=== PATIENT | female | born 1935 | race Two or more races ===

== ENCOUNTER 2017-06-08 20:00 | Emergency (ER) | payer MEDICARE, OTHER, MEDICAID ==
[2017-06-08 20:33] VITALS: BP 155/55
--- NOTE | 2017-06-08 20:49 | EDM.PDOC ---
ED HPI GENERAL MEDICAL PROBLEM - General Chief Complaint: Skin Complaint Stated Complaint: ITCHY RASH ON STOMACH AND BACK Time Seen by Provider: 06/08/17 20:49 Source of Information: Reports: Patient, Family (daughter) History Limitations: Reports: No Limitations - History of Present Illness INITIAL COMMENTS - FREE TEXT/NARRATIVE: 81-year-old female attends the ED due to severe pruritus. Patient states that she had cataract surgery 2 weeks ago May 22. She started scratching and becoming itchy on her way home that day after having had surgery. In about 3 days time she broke out in a papular rash mostly on her skin folds lower abdomen and then subsequent spread to torso and neck and back. She was seen and felt to have a drug eruption and it was unclear what may have set this off. Her eyedrops were curtailed case they were contributing to the problem. She was on a Medrol Dosepak and her symptoms improved dramatically within a day or return to days after finishing the Medrol Dosepak. Benadryl doesn't seem to work and is not a good idea for her as she has the beginnings of organic brain disease as well. She was seen by provider today and started on Claritin will dictate which will take about 2-3 days to start work is an antihistamine for itching. She was also given topical betamethasone ointment which she states has not helped. The rash has become much worse over the last 24 hours. At present she can stand the itching unable to sleep. Onset: Other Onset Date: 05/22/17 Duration: Week(s): Location: Reports: Neck, Chest, Abdomen, Back Quality: Reports: Other (very pruritic papules.) Severity: Severe Improves with: Reports: None Worsens with: Reports: Other (if she gets warm at all the itching is much worse) Context: Reports: Other (felt to be a drug eruption his symptoms started after having cataract surgery.started on numerous medications at that time). Denies: Activity, Exercise, Lifting, Sick Contact, Trauma Associated Symptoms: Reports: Other (disrupted sleep pattern because of the pruritus.). 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 (see below) - Related Data Allergies Allergy/AdvReac Type Severity Reaction Status Date / Time No Known Allergies Allergy Verified 06/08/17 20:33 Home Meds: Home Meds Levothyroxine [Synthroid] 50 mcg PO DAILY 12/22/15 [History] Losartan/Hydrochlorothiazide [Losartan-HCTZ 100-25 MG] 1 tab PO DAILY 12/22/15 [ History] Omeprazole [Prilosec] 20 mg PO DAILY 12/22/15 [History] Betamethasone/Propylene Glyc [Betamethasone DP Aug 0.05%] 1 dose TP ASDIRECTED PRN 06/08/17 [History] Eye Medication For Cataracts 1 drop EYEBOTH BID 06/08/17 [History] Prednisone [IMW: predniSONE] 20 mg PO BID #11 tab 06/08/17 [Rx] Past Medical History HEENT History: Reports: Cataract, Impaired Vision Cardiovascular History: Reports: High Cholesterol, Hypertension Other Cardiovascular History: angioplasty Gastrointestinal History: Reports: GERD Psychiatric History: Reports: Anxiety Endocrine/Metabolic History: Reports: Hypothyroidism - Past Surgical History HEENT Surgical History: Reports: Cataract Surgery GI Surgical History: Reports: Cholecystectomy Female Surgical History: Reports: Hysterectomy Musculoskeletal Surgical History: Reports: Knee Replacement Social & Family History - Family History Family Medical History: Noncontributory - Tobacco Use Smoking Status *Q: Never Smoker Second Hand Smoke Exposure: No - Caffeine Use Caffeine Use: Reports: None - Recreational Drug Use Recreational Drug Use: No ED ROS GENERAL - Review of Systems Review Of Systems: See Below Constitutional: Reports: Malaise, Fatigue (from not getting adequate sleep). Denies: Fever, Chills HEENT: Reports: No Symptoms, Other (wearing glasses at present due to recent cataract surgery) Respiratory: Reports: No Symptoms Cardiovascular: Reports: No Symptoms Endocrine: Reports: No Symptoms GI/Abdominal: Reports: Constipation (some constipation issues since having had surgery) : Reports: Frequency ( is not using any pain medication.), Incontinence (both urge and stress components.) Musculoskeletal: Reports: Neck Pain (intermittently), Shoulder Pain ( intermittentlyintermittently), Back Pain Skin: Reports: Pruritis (severe), Lesions (map maculopapular rash particularly across the upper chest and neck and back. They improve after she scratches the lesions i.e. they're not as itchy.) Neurological: Reports: Confusion (mild transient confusions. Beginning of organic brain disease appreciated by daughter who is with her.) Psychiatric: Reports: No Symptoms Hematologic/Lymphatic: Reports: No Symptoms ED EXAM, SKIN/RASH Exam: See Below Exam Limited By: No Limitations General Appearance: Alert, WD/WN, Moderate Distress Eye Exam: Bilateral Eye: Other Head: Atraumatic Neck: Normal Inspection, Supple, Non-Tender, Full Range of Motion. No: Lymphadenopathy (L), Lymphadenopathy (R) Respiratory/Chest: No Respiratory Distress, Lungs Clear, Normal Breath Sounds, No Accessory Muscle Use Cardiovascular: Normal Peripheral Pulses, Regular Rate, Rhythm, No Edema, No Murmur Skin: Other (patient has a maculopapular rash anterior chest and neck and upper back. It spreads across the upper abdomen as well. They are erythematous and 1- 2 mm in size. They gave me the impression that they are actually small vesicles that she has scratched open. There is no active bleeding or infection. They almost have the appearance of lesions seen in dermatitis herpetiformis.) Characteristics: Maculopapular Associated features: No: Tenderness, Swelling, Induration, Scaling, Lymphangitis , Inflammation, Crusting, Weeping, Rough Course - Vital Signs Last Recorded V/S: Last Vital Signs Temp 36.2 C 06/08/17 20:28 Pulse 63 06/08/17 20:28 Resp 18 06/08/17 20:28 BP 155/55 H 06/08/17 20:28 Pulse Ox 96 06/08/17 20:28 - Radiology Interpretation Free Text/Narrative:: 81-year-old female presents to the ED for evaluation of severe pruritus and rash. She developed itching on the way home after having cataract surgery 2 weeks ago. She suffered a broken out in a maculopapular rash which initially was in across the lower abdomen and groin area and then subsequent has spread on the abdomen chest thorax posteriorly and neck. She improved remarkably on a 5 day dose of Solu-Medrol or dose pack. Within 2 days of stopping the steroid her symptoms returned and the rash is spreading. She was seen in clinic and prescribed betamethasone ointment as well as Claritin for itch as Benadryl was not helping plus making her more confused. She states that neither of these medications of helped her itching and she is unable to sleep. On examination she does have a maculopapular rash to me it looks like there is almost multiple vesicles that have been scratched. She reports that when she scratches them they tend to be less itchy. I don't have much else to offer her other than a return to steroids. She'll therefore be placed on prednisone 20 mg morning and supper for 5 days to bring the rash under control.she will be given 20 mg while in the ED tonight. Follow-up with her personal care physician next week. Departure - Departure Time of Disposition: 21:14 Disposition: Home, Self-Care 01 Condition: Fair Clinical Impression: Acneiform drug eruption - Discharge Information Prescriptions: Prednisone [IMW: predniSONE] 20 mg PO BID #11 tab Instructions: Drug Rash Referrals: Trudy Fernandez NP [Primary Care Provider] - Forms: ED Department Discharge Additional Instructions: evaluation in the emergency room tonight in regards to recurrence of itchy rash that started nearly 2 weeks ago. Started after having left cataract surgery. Appears to be a drug eruption type of rash. It has the appearance of acne. I suspect there are small blisters that are [place] scratched off the itch improves. Initially improved with a 5 day course of steroid called the Medrol Dosepak. Current medications betamethasone valerate ointment is not helping with the itch or the rash. Suggest return to steroid use prednisone 20 mg now and then breakfast and supper for the next 5 days to clear the rash. Most drug eruptions will last 7 date days. Again try and find out if she received any intravenous antibiotic prior to the cataract surgery. This might be the culprit in terms of allergic reaction. Rarely it could be an eyedrop as well although this is less likely as there is not much systemic absorption from the eyedrops. May continue to use the betamethasone to the rash area. Claritin takes about 3 days to start to work and therefore is of limited value. Due to impaired memory and early organic brain disease I would not suggest use of Benadryl at this time as it would likely cause more confusion. Follow-up with personal physician if rash not improved or returns after 5 days of prednisone use.
== END 2017-06-08 21:31 | disposition home or self-care (01) ==
LOC: EDBD → JD.ED 20:00
DX: L27.0 Generalized skin eruption due to drugs and medicaments taken internally (principal); T49.5X5A Adverse effect of ophthalmological drugs and preparations, initial encounter; I10 Essential (primary) hypertension; Z79.899 Other long term (current) drug therapy; Z98.49 Cataract extraction status, unspecified eye
CPT/HCPCS: 99283

== ENCOUNTER 2017-06-19 17:59 | Emergency (ER) | payer MEDICARE, MEDICAID ==
--- NOTE | 2017-06-19 18:24 | EDM.PDOC ---
ED HPI GENERAL MEDICAL PROBLEM - General Chief Complaint: Abdominal Pain Stated Complaint: STOMACH PAIN Time Seen by Provider: 06/19/17 18:24 Source of Information: Reports: Patient History Limitations: Reports: No Limitations - History of Present Illness INITIAL COMMENTS - FREE TEXT/NARRATIVE: Patient is a 81-year-old female presents ED complaining of generalized abdominal discomfort. Patient has been worked up quite extensively by a GI specialist in [place] with unclear etiology to the current complaint. They believe it is related to acid reflux and thus the patient has been taking Prilosec, Carafate, and also Bentyl. States over the past 2 days the discomfort has not been relieved with these therapies. Thus she is here to be evaluated in the ED. Pain is generalized described as a sharp, crampy sensation, that waxes and wanes in intensity. She's had a poor appetite for the past 2 days. Has been sleeping more today than usual. Patient denies any worsening depression, lack of motivation, and lack of enjoyment of items she has previously enjoyed. Last bowel movement was earlier today at 11:00 described as soft, formed, with no blood present. There's been no pain with urination. No recent fever, chest pain , SOB, back pain, or nausea or vomiting. Patient did complain to her daughter that she felt constipated 2 days ago. Daughter states patient does suffer from depression and is on a medication for this. They recently increased her medication dosage. States after returning back from [place] this past April symptoms have persisted. She had no pain to her abdomen while visiting family in [place] for one month. Daughter questions if patient does not have worsening depression with being back in [place]. Patient states she lives [place] and likes living with her daughter. Depression medication name unknown by family and patient. Past history: Hypercholesteremia, hypertension, coronary disease, acid reflux, anxiety, hypothyroidism Current medications include Synthroid, losartan/HCTZ, Prilosec, prednisone, Carafate, and Bentyl. Surgical history: EGD, colonoscopy, cholecystectomy, and hysterectomy. Abdomen Pain Score (Numeric/FACES): 10 - Related Data Allergies Allergy/AdvReac Type Severity Reaction Status Date / Time No Known Allergies Allergy Verified 06/08/17 20:33 Home Meds: Home Meds Levothyroxine [Synthroid] 50 mcg PO DAILY 12/22/15 [History] Losartan/Hydrochlorothiazide [Losartan-HCTZ 100-25 MG] 1 tab PO DAILY 12/22/15 [ History] Omeprazole [Prilosec] 20 mg PO DAILY 12/22/15 [History] Betamethasone/Propylene Glyc [Betamethasone DP Aug 0.05%] 1 dose TP ASDIRECTED PRN 06/08/17 [History] Eye Medication For Cataracts 1 drop EYEBOTH BID 06/08/17 [History] Prednisone [IMW: predniSONE] 20 mg PO BID #11 tab 06/08/17 [Rx] Past Medical History HEENT History: Reports: Cataract, Impaired Vision Cardiovascular History: Reports: High Cholesterol, Hypertension Other Cardiovascular History: angioplasty Gastrointestinal History: Reports: GERD Psychiatric History: Reports: Anxiety Endocrine/Metabolic History: Reports: Hypothyroidism - Past Surgical History HEENT Surgical History: Reports: Cataract Surgery GI Surgical History: Reports: Cholecystectomy Female Surgical History: Reports: Hysterectomy Musculoskeletal Surgical History: Reports: Knee Replacement Social & Family History - Family History Family Medical History: Noncontributory - Tobacco Use Smoking Status *Q: Never Smoker Second Hand Smoke Exposure: No - Caffeine Use Caffeine Use: Reports: Coffee, Soda - Recreational Drug Use Recreational Drug Use: No ED ROS GENERAL - Review of Systems Review Of Systems: See Below (Per patient and daughter) Constitutional: Reports: Malaise, Fatigue, Decreased Appetite. Denies: Fever, Chills HEENT: Reports: No Symptoms Respiratory: Denies: Shortness of Breath, Cough, Sputum, Hemoptysis Cardiovascular: Denies: Chest Pain, Dyspnea on Exertion, Palpitations, PND, Syncope GI/Abdominal: Reports: Abdominal Pain, Constipation, Diarrhea, Decreased Appetite, Nausea. Denies: Black Stool, Bloody Stool, Difficulty Swallowing, Distension, Flatus, Hematemesis, Hematochezia, Melena, Vomiting : Reports: No Symptoms Musculoskeletal: Denies: Back Pain Neurological: Reports: No Symptoms Psychiatric: Reports: Depression ED EXAM, GI/ABD - Physical Exam Exam: See Below Exam Limited By: No Limitations General Appearance: Alert, WD/WN, No Apparent Distress Ears: Hearing Grossly Normal Nose: Normal Inspection Throat/Mouth: Normal Voice, No Airway Compromise, Other (Oral mucosa is moist) Neck: Normal Inspection, Supple Respiratory/Chest: No Respiratory Distress, Lungs Clear, Normal Breath Sounds, No Accessory Muscle Use, Chest Non-Tender Cardiovascular: Normal Peripheral Pulses, Regular Rate, Rhythm GI/Abdominal Exam: Normal Bowel Sounds, Soft, Non-Tender, No Organomegaly, No Distention (Female) Exam: Deferred Rectal (Female) Exam: Deferred Back Exam: Normal Inspection. No: CVA Tenderness (L), CVA Tenderness (R) Extremities: Non-Tender, No Pedal Edema, Normal Capillary Refill Neurological: Alert, Oriented, CN II-XII Intact, Normal Cognition, No Motor/ Sensory Deficits Psychiatric: Normal Affect, Normal Mood Skin Exam: Warm, Dry, Intact, Normal Color Course - Vital Signs Last Recorded V/S: Last Vital Signs Temp 97.8 F 06/19/17 18:24 Pulse 58 L 06/19/17 18:24 Resp 20 06/19/17 18:24 BP 172/58 H 06/19/17 18:24 Pulse Ox 97 06/19/17 18:24 - Orders/Labs/Meds Orders: Active Orders 24 hr Category Date Time Status Peripheral IV Care [RC] . DIRECTED Care 06/19/17 18:40 Active Abdomen 2V AP Flat Upright [CR] Stat Exams 06/19/17 18:40 Taken Peripheral IV Insertion Adult [OM.PC] Stat Oth 06/19/17 18:40 Ordered Labs: Laboratory Tests 06/19/17 06/19/17 06/19/17 Range/Units 18:15 18:15 18:15 WBC 12.98 H (3.98-10.04) K/mm3 RBC 5.13 (3.98-5.22) M/mm3 Hgb 15.4 (11.2-15.7) gm/L Hct 45.0 H (34.1-44.9) % MCV 87.7 (79.4-94.8) fl MCH 30.0 (25.6-32.2) pg MCHC 34.2 (32.2-35.5) g/dl RDW Std Deviation 53.0 H (36.4-46.3) fL Plt Count 152 L (182-369) K/mm3 MPV 10.6 (9.4-12.3) fl Neut % (Auto) 66.7 (34.0-71.1) % Lymph % (Auto) 23.8 (19.3-51.7) % [place] % (Auto) 7.7 (4.7-12.5) % Eos % (Auto) 0.8 (0.7-5.8) Baso % (Auto) 0.2 (0.1-1.2) % Neut # (Auto) 8.67 H (1.56-6.13) K/mm3 Lymph # (Auto) 3.09 (1.18-3.74) K/mm3 [place] # (Auto) 1.00 H (0.24-0.36) K/mm3 Eos # (Auto) 0.10 (0.04-0.36) K/mm3 Baso # (Auto) 0.02 (0.01-0.08) K/mm3 Sodium 139 (136-145) mEq/L Potassium 3.4 L (3.5-5.1) mEq/L Chloride 105 (98-107) mEq/L Carbon Dioxide 22 (21-32) mEq/L Anion Gap 15.4 H (5-15) BUN 18 (7-18) mg/dL Creatinine 1.5 H (0.55-1.02) mg/dL Est Cr Clr Drug Dosing TNP Estimated GFR (MDRD) 33 (>60) mL/min BUN/Creatinine Ratio 12.0 L (14-18) Glucose 109 (83-115) mg/dL Calcium 8.3 L (8.5-10.1) mg/dL Total Bilirubin 0.3 (0.2-1.0) mg/dL AST 20 (15-37) U/L ALT 16 (14-59) U/L Alkaline Phosphatase 60 (46-116) U/L C-Reactive Protein 2.1 H* (<1.0) mg/dL Total Protein 6.4 (6.4-8.2) g/dl Albumin 3.1 L (3.4-5.0) g/dl Globulin 3.3 gm/dL Albumin/Globulin Ratio 0.9 L (1-2) Lipase 240 (73-393) U/L TSH 3rd Generation 4.313 H (0.358-3.74) uIU/mL Urine Color (Yellow) Urine Appearance (Clear) Urine pH (5.0-8.0) Ur Specific [place] (1.005-1.030) Urine Protein (Negative) Urine Glucose (UA) (Negative) Urine Ketones (Negative) Urine Occult Blood (Negative) Urine Nitrite (Negative) Urine Bilirubin (Negative) Urine Urobilinogen (0.2-1.0) Ur Leukocyte Esterase (Negative) Urine RBC (0-5) /hpf Urine WBC (0-5) /hpf Ur Epithelial Cells (0-5) /hpf Urine Bacteria (FEW) /hpf Urine Mucus (FEW) /hpf 06/19/17 Range/Units 18:45 WBC (3.98-10.04) K/mm3 RBC (3.98-5.22) M/mm3 Hgb (11.2-15.7) gm/L Hct (34.1-44.9) % MCV (79.4-94.8) fl MCH (25.6-32.2) pg MCHC (32.2-35.5) g/dl RDW Std Deviation (36.4-46.3) fL Plt Count (182-369) K/mm3 MPV (9.4-12.3) fl Neut % (Auto) (34.0-71.1) % Lymph % (Auto) (19.3-51.7) % [place] % (Auto) (4.7-12.5) % Eos % (Auto) (0.7-5.8) Baso % (Auto) (0.1-1.2) % Neut # (Auto) (1.56-6.13) K/mm3 Lymph # (Auto) (1.18-3.74) K/mm3 [place] # (Auto) (0.24-0.36) K/mm3 Eos # (Auto) (0.04-0.36) K/mm3 Baso # (Auto) (0.01-0.08) K/mm3 Sodium (136-145) mEq/L Potassium (3.5-5.1) mEq/L Chloride (98-107) mEq/L Carbon Dioxide (21-32) mEq/L Anion Gap (5-15) BUN (7-18) mg/dL Creatinine (0.55-1.02) mg/dL Est Cr Clr Drug Dosing Estimated GFR (MDRD) (>60) mL/min BUN/Creatinine Ratio (14-18) Glucose (83-115) mg/dL Calcium (8.5-10.1) mg/dL Total Bilirubin (0.2-1.0) mg/dL AST (15-37) U/L ALT (14-59) U/L Alkaline Phosphatase (46-116) U/L C-Reactive Protein (<1.0) mg/dL Total Protein (6.4-8.2) g/dl Albumin (3.4-5.0) g/dl Globulin gm/dL Albumin/Globulin Ratio (1-2) Lipase (73-393) U/L TSH 3rd Generation (0.358-3.74) uIU/mL Urine Color Yellow (Yellow) Urine Appearance Clear (Clear) Urine pH 7.0 (5.0-8.0) Ur Specific [place] 1.020 (1.005-1.030) Urine Protein Negative (Negative) Urine Glucose (UA) Negative (Negative) Urine Ketones Negative (Negative) Urine Occult Blood Negative (Negative) Urine Nitrite Negative (Negative) Urine Bilirubin Negative (Negative) Urine Urobilinogen 0.2 (0.2-1.0) Ur Leukocyte Esterase Negative (Negative) Urine RBC 0-5 (0-5) /hpf Urine WBC 0-5 (0-5) /hpf Ur Epithelial Cells 0-5 (0-5) /hpf Urine Bacteria Few (FEW) /hpf Urine Mucus Few (FEW) /hpf Meds: Medications Discontinued Medications Generic Name Dose Route Start Last Admin Trade Name Randyq PRN Reason Stop Dose Admin Sodium Chloride 1,000 mls @ 125 mls/hr 06/19/17 18:45 06/19/17 19:00 Normal Saline IV 125 mls/hr ASDIRECTED CHUY Administration Sodium Chloride 10 ml 06/19/17 18:40 06/19/17 18:15 Saline Flush FLUSH 10 ml ASDIRECTED PRN Administration Keep Vein Open - Re-Assessments/Exams Free Text/Narrative Re-Assessment/Exam: IV established with normal saline. Initial labs and studies include CBC, tsh, chem 14, CRP, lipase, UA, and 2 view of the abdomen flat and upright. Labs reviewed: White blood cell count 12.98, hemoglobin 15.4, platelet count 152 , neutrophil percentage is 66.7, neutrophil number is 8.67, sodium 139, potassium 3.4, cr 1.5, glucose 109, CRP 2.1, lipase 240, TSH third-generation 4.313. UA negative for infection. X-ray of the abdomen reveals scattered gas with increased stool pattern. No signs of obstruction. Shared results of labs and studies with the patient. She has no discomfort at this time. She is wishing be discharged home. Discharge instructions as documented. Departure - Departure Time of Disposition: 20:25 Disposition: Home, Self-Care 01 Condition: Good Clinical Impression: Chronic generalized abdominal pain - Discharge Information Instructions: Constipation, Adult, [id number], Abdominal Pain, Adult, Easy-to -Read Referrals: Trudy Fernandez, SAMPLE WORKER [Primary Care Provider] - Forms: ED Department Discharge Additional Instructions: Continue taking all your home medications as prescribed. Suggest starting MiraLAX one capful every day with copious amounts of water or juice to regulate bowel movements. Follow-up with your PCP this coming week for reevaluation. Keep appointment with GI specialist for further evaluation and treatment as well. Return to the ED for any new or worsening symptoms. - My Orders Last 24 Hours: My Active Orders 06/19/17 18:40 Peripheral IV Care [RC] . DIRECTED Abdomen 2V AP Flat Upright [CR] Stat Peripheral IV Insertion Adult [OM.PC] Stat - Assessment/Plan Last 24 Hours: My Active Orders 06/19/17 18:40 Peripheral IV Care [RC] . DIRECTED Abdomen 2V AP Flat Upright [CR] Stat Peripheral IV Insertion Adult [OM.PC] Stat
[2017-06-19 18:28] VITALS: BP 172/58
[2017-06-19] MEDS ORDERED: Sodium Chloride 0.9% 10 ML Syringe FLUSH PRN (18:40)
[2017-06-19] MEDS ORDERED: Sodium Chloride 0.9% 1,000 ML IV SCH (18:45)
--- NOTE | 2017-06-20 07:02 | CR ---
Abdomen: Supine and upright views of the abdomen were obtained. Comparison: Previous abdominal x-ray of 03/30/16. Extensive vascular calcification is seen within a tortuous aorta. Previous cholecystectomy is noted. Bowel gas pattern appears within normal limits. No free air is seen. Impression: 1. Incidental findings. Diagnostic code #2
== END 2017-06-19 20:30 | disposition home or self-care (01) ==
LOC: JD.ED 17:59 → EDBD 17:59 → JD.ED 20:30
DX: R10.84 Generalized abdominal pain (principal); G89.29 Other chronic pain; E78.00 Pure hypercholesterolemia, unspecified; I10 Essential (primary) hypertension; K21.9 Gastro-esophageal reflux disease without esophagitis; F41.9 Anxiety disorder, unspecified; E03.9 Hypothyroidism, unspecified; Z79.899 Other long term (current) drug therapy; Z90.49 Acquired absence of other specified parts of digestive tract; Z90.710 Acquired absence of both cervix and uterus
CPT/HCPCS: 36415; 74020; 80053; 81001; 83690; 84443; 85025; 86140; 96360; 99284; J7040; J7050; 99283

== ENCOUNTER 2017-11-19 14:52 | Observation (INO) | payer MEDICARE, MEDICAID ==
[2017-11-19] MEDS ORDERED: Sodium Chloride 0.9% 10 ML Syringe FLUSH PRN (15:21)
[2017-11-19] MEDS ORDERED: HYDROmorphone 0.5 MG/0.5 ML SYRINGE IVPUSH ONE (16:14)
--- NOTE | 2017-11-19 17:16 | EDM.PDOC ---
ED HPI GENERAL MEDICAL PROBLEM - General Chief Complaint: Cardiovascular Problem Stated Complaint: [facility] Time Seen by Provider: 11/19/17 15:15 Source of Information: Reports: Patient, Family, RN Notes Reviewed - History of Present Illness INITIAL COMMENTS - FREE TEXT/NARRATIVE: 82 year old female has been brought in by ambulance after syncopal event at home a short time ago witnessed by family. She has dementia, fell 3 times last evening but no report of syncope, just balance issues or weakness. She has been having abd pain for many days, she did vomit at the time of her syncope today. Unclear if there has been diarrhea, family not aware of that. No chest pain or difficulty breathing. Hx of hypothyroidism, No know hx diabetes , CAD. Abdomen Pain Score (Numeric/FACES): 7 - Related Data Allergies Allergy/AdvReac Type Severity Reaction Status Date / Time No Known Allergies Allergy Verified 11/19/17 15:06 Home Meds: Home Meds Citalopram [Citalopram HBr] 10 mg PO DAILY 11/19/17 [History] Dicyclomine [Bentyl] 10 mg PO QIDACANDBED 11/19/17 [History] Donepezil HCl [Aricept] 10 mg PO DAILY 11/19/17 [History] Levothyroxine Sodium [Synthroid] 75 mcg PO DAILY 11/19/17 [History] Losartan/Hydrochlorothiazide [Losartan-HCTZ 100-25 MG] 1 tab PO DAILY 11/19/17 [ History] Megestrol [Megace] 20 mg PO QID 11/19/17 [History] Omeprazole 20 mg PO BIDAC 11/19/17 [History] Oxybutynin 5 mg PO DAILY 11/19/17 [History] Sucralfate [Carafate] 1 gm PO DAILY PRN 11/19/17 [History] Past Medical History Cardiovascular History: Reports: Hypertension Gastrointestinal History: Reports: GERD 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: Psychiatric History: Reports: Dementia Endocrine/Metabolic History: Reports: Hypothyroidism - Past Surgical History GI Surgical History: Reports: Cholecystectomy, Colonoscopy Female Surgical History: Reports: Hysterectomy Musculoskeletal Surgical History: Reports: Knee Replacement Social & Family History - Tobacco Use Smoking Status *Q: Never Smoker Second Hand Smoke Exposure: No - Caffeine Use Caffeine Use: Reports: Coffee - Recreational Drug Use Recreational Drug Use: No ED ROS GENERAL - Review of Systems Review Of Systems: See Below Constitutional: Denies: Fever, Chills, Diaphoresis HEENT: Denies: Sinus Problem, Throat Pain Respiratory: Denies: Shortness of Breath, Wheezing, Pleuritic Chest Pain Cardiovascular: Denies: Chest Pain GI/Abdominal: Reports: Abdominal Pain, Diarrhea (possible), Nausea, Vomiting Musculoskeletal: Denies: Neck Pain, Shoulder Pain, Back Pain Skin: Denies: Rash Neurological: Reports: Dizziness, Difficulty Walking, Weakness (generalized). Denies: Numbness, Tingling ED EXAM, GENERAL - Physical Exam Exam: See Below General Appearance: Alert, No Apparent Distress Eye Exam: Bilateral Eye: PERRL Nose: Normal Inspection Throat/Mouth: Normal Inspection, Normal Oropharynx Head: Atraumatic. No: Facial Swelling Neck: Supple, Other (no JVD) Respiratory/Chest: No Respiratory Distress, Lungs Clear, Normal Breath Sounds Cardiovascular: Regular Rate, Rhythm GI/Abdominal: Soft, Tender (mild tenderness upper mid abd) Extremities: Normal Inspection, Normal Range of Motion. No: Pedal Edema, Leg Pain, Increased Warmth, Redness Neurological: Alert, No Motor/Sensory Deficits, Confused, Other (obeys simple commands, no focal weakness) Skin Exam: Warm, Dry, Normal Color EKG INTERPRETATION EKG Date: 11/19/17 Rhythm: NSR [place]: Normal P-Wave: Present QRS: Normal ST-T: Normal Course - Vital Signs Last Recorded V/S: Last Vital Signs Temp 98 F 11/19/17 15:04 Pulse 61 11/19/17 15:04 Resp 20 11/19/17 15:04 BP 194/47 H 11/19/17 15:04 Pulse Ox 95 11/19/17 15:04 - Orders/Labs/Meds Orders: Active Orders 24 hr Category Date Time Status Admission Status [Patient Status] [ADT] Routine ADT 11/19/17 19:26 Active EKG 12 Lead [EKG Documentation Completion] [RC] STAT Care 11/19/17 15:22 Active Peripheral IV Care [RC] . DIRECTED Care 11/19/17 15:22 Active Chest 1V Frontal [CR] Stat Exams 11/19/17 17:09 Taken Sodium Chloride 0.9% [Saline Flush] Med 11/19/17 15:21 Active 10 ml FLUSH ASDIRECTED PRN Peripheral IV Insertion Adult [OM.PC] Stat Oth 11/19/17 15:22 Ordered Medication Orders Sodium Chloride (Saline Flush) 10 ml FLUSH ASDIRECTED PRN PRN Reason: Keep Vein Open Last Admin: 11/19/17 15:57 Dose: 10 ml Labs: Laboratory Tests 11/19/17 11/19/17 11/19/17 Range/Units 15:16 15:16 15:55 WBC 12.75 H (3.98-10.04) K/mm3 RBC 4.32 (3.98-5.22) M/mm3 Hgb 13.3 (11.2-15.7) gm/L Hct 39.8 (34.1-44.9) % MCV 92.1 (79.4-94.8) fl MCH 30.8 (25.6-32.2) pg MCHC 33.4 (32.2-35.5) g/dl RDW Std Deviation 45.9 (36.4-46.3) fL Plt Count 249 (182-369) K/mm3 MPV 9.9 (9.4-12.3) fl Neut % (Auto) 62.7 (34.0-71.1) % Lymph % (Auto) 28.1 (19.3-51.7) % [place] % (Auto) 7.4 (4.7-12.5) % Eos % (Auto) 0.6 L (0.7-5.8) Baso % (Auto) 0.4 (0.1-1.2) % Neut # (Auto) 8.00 H (1.56-6.13) K/mm3 Lymph # (Auto) 3.58 (1.18-3.74) K/mm3 [place] # (Auto) 0.94 H (0.24-0.36) K/mm3 Eos # (Auto) 0.08 (0.04-0.36) K/mm3 Baso # (Auto) 0.05 (0.01-0.08) K/mm3 Sodium 139 (136-145) mEq/L Potassium 3.3 L (3.5-5.1) mEq/L Chloride 106 (98-107) mEq/L Carbon Dioxide 23 (21-32) mEq/L Anion Gap 13.3 (5-15) BUN 19 H (7-18) mg/dL Creatinine 1.2 H (0.55-1.02) mg/dL Est Cr Clr Drug Dosing 34.54 mL/min Estimated GFR (MDRD) 43 (>60) mL/min BUN/Creatinine Ratio 15.8 (14-18) Glucose 183 H (83-115) mg/dL Calcium 8.2 L (8.5-10.1) mg/dL Total Bilirubin 0.4 (0.2-1.0) mg/dL AST 23 (15-37) U/L ALT 11 L (14-59) U/L Alkaline Phosphatase 57 (46-116) U/L Troponin I < 0.017 (0.00-0.056) ng/mL Total Protein 6.1 L (6.4-8.2) g/dl Albumin 3.0 L (3.4-5.0) g/dl Globulin 3.1 gm/dL Albumin/Globulin Ratio 1.0 (1-2) Urine Color Yellow (Yellow) Urine Appearance Clear (Clear) Urine pH 7.0 (5.0-8.0) Ur Specific [place] 1.020 (1.005-1.030) Urine Protein Trace H (Negative) Urine Glucose (UA) Negative (Negative) Urine Ketones Negative (Negative) Urine Occult Blood Negative (Negative) Urine Nitrite Negative (Negative) Urine Bilirubin Negative (Negative) Urine Urobilinogen 0.2 (0.2-1.0) Ur Leukocyte Esterase Negative (Negative) Urine RBC 0-5 (0-5) /hpf Urine WBC 0-5 (0-5) /hpf Ur Epithelial Cells 0-5 (0-5) /hpf Urine Bacteria Not seen (FEW) /hpf Urine Mucus Not seen (FEW) /hpf Meds: Medications Generic Name Dose Route Start Last Admin Trade Name Freq PRN Reason Stop Dose Admin Sodium Chloride 10 ml 11/19/17 15:21 11/19/17 15:57 Saline Flush FLUSH 10 ml ASDIRECTED PRN Administration Keep Vein Open Discontinued Medications Generic Name Dose Route Start Last Admin Trade Name Freq PRN Reason Stop Dose Admin Hydromorphone HCl 0.5 mg 11/19/17 16:14 11/19/17 16:21 Dilaudid IVPUSH 11/19/17 16:15 0.5 mg ONETIME ONE Administration - Re-Assessments/Exams Free Text/Narrative Re-Assessment/Exam: 11/19/17 18:08 WBC mildly elevated, cath urine clear, CXR normal, chemistries relatively OK. No further vomting but continued abd pain. 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 Will admit for IV fluid, continued monitering of abd pain, nausea, vomiting as well as cardiac monitering for syncope or near syncope. Departure - Departure Time of Disposition: 18:00 Disposition: Refer to Observation Condition: Fair Clinical Impression: Syncope Qualifiers: Syncope type: unspecified Qualified Code(s): R55 - Syncope and collapse Vomiting Qualifiers: Vomiting type: unspecified Vomiting Intractability: non-intractable Nausea presence: with nausea Qualified Code(s): R11.2 - Nausea with vomiting, unspecified Abdominal pain Qualifiers: Abdominal location: upper abdomen, unspecified Qualified Code(s): R10.10 - Upper abdominal pain, unspecified ED Communication - Discussed Case With (1) Discussed Case With (1): Admitting Provider (Dr Holman, decision to admit at about 17:20) - My Orders Last 24 Hours: My Active Orders 11/19/17 15:21 Sodium Chloride 0.9% [Saline Flush] 10 ml FLUSH ASDIRECTED PRN 11/19/17 15:22 EKG 12 Lead [EKG Documentation Completion] [RC] STAT Peripheral IV Care [RC] . DIRECTED Peripheral IV Insertion Adult [OM.PC] Stat 11/19/17 17:09 Chest 1V Frontal [CR] Stat 11/19/17 19:26 Admission Status [Patient Status] [ADT] Routine - Assessment/Plan Last 24 Hours: My Active Orders 11/19/17 15:21 Sodium Chloride 0.9% [Saline Flush] 10 ml FLUSH ASDIRECTED PRN 11/19/17 15:22 EKG 12 Lead [EKG Documentation Completion] [RC] STAT Peripheral IV Care [RC] . DIRECTED Peripheral IV Insertion Adult [OM.PC] Stat 11/19/17 17:09 Chest 1V Frontal [CR] Stat 11/19/17 19:26 Admission Status [Patient Status] [ADT] Routine
[2017-11-19] MEDS ORDERED: SUCRALFATE 1 GM/10 ML PO PRN (20:58)
--- NOTE | 2017-11-19 21:39 | PCM.HP ---
H&P History of Present Illness - General Date of Service: 11/19/17 Source of Information: Family, Provider History Limitations: Reports: No Limitations - History of Present Illness Initial Comments - Free Text/Narative: 82 year old female first language is Ghanaian reports to the ED with her daughter and grandchildren. She resides in her daughter's home. And apparently was in her bedroom and may have fallen, it is not known whether she passed out. The door to her bedroom was closed. Her daughter stated that she has been more confused since returning from [place] where she had been living before [place]. The most recent physical condition treated had been H Pylori. She has recently been diagnosed with dementia and has an appointment with a neurologist in [place]. Her most recent meds for dementia were started by her PCP, the focus of the neurology visit was assessment and treatment of her dementia to slow then progression. Reportedly there have been three falls recently without LOC. She will be admitted as obs with telemetry. Onset of Symptoms: Reports: Gradual Symptom Onset Date: 11/16/17 Duration of Symptoms: Reports: Hour(s):, Getting Worse Severity: Moderate Improves with: Reports: Medication Worsens with: Reports: None Associated Symptoms: Reports: Confusion, Loss of Appetite, Malaise, Nausea/ Vomiting, Weakness Abdomen Pain Score (Numeric/FACES): 7 - Related Data Allergies/Adverse Reactions: Allergies Allergy/AdvReac Type Severity Reaction Status Date / Time No Known Allergies Allergy Verified 11/19/17 15:06 Home Medications: Home Meds Citalopram [Citalopram HBr] 10 mg PO DAILY 11/19/17 [History] Dicyclomine [Bentyl] 10 mg PO QIDACANDBED 11/19/17 [History] Donepezil HCl [Aricept] 10 mg PO DAILY 11/19/17 [History] Levothyroxine Sodium [Synthroid] 75 mcg PO DAILY 11/19/17 [History] Losartan/Hydrochlorothiazide [Losartan-HCTZ 100-25 MG] 1 tab PO DAILY 11/19/17 [ History] Megestrol [Megace] 20 mg PO QID 11/19/17 [History] Omeprazole 20 mg PO BIDAC 11/19/17 [History] Oxybutynin 5 mg PO DAILY 11/19/17 [History] Sucralfate [Carafate] 1 gm PO DAILY PRN 11/19/17 [History] Past Medical History HEENT History: Reports: Impaired Vision Other HEENT History: wears glasses, not here Cardiovascular History: Reports: Hypertension Gastrointestinal History: Reports: GERD 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: Psychiatric History: Reports: Dementia Endocrine/Metabolic History: Reports: Hypothyroidism - Past Surgical History HEENT Surgical History: Reports: Cataract Surgery Cardiovascular Surgical History: Reports: None GI Surgical History: Reports: Cholecystectomy, Colonoscopy Female Surgical History: Reports: Hysterectomy Endocrine Surgical History: Reports: None Musculoskeletal Surgical History: Reports: Knee Replacement Social & Family History - Family History Family Medical History: Noncontributory - Tobacco Use Smoking Status *Q: Never Smoker Second Hand Smoke Exposure: No - Caffeine Use Caffeine Use: Reports: Coffee Other Caffeine Use: two cups in morning - Recreational Drug Use Recreational Drug Use: No H&P Review of Systems - Review of Systems: Review Of Systems: See Below General: Reports: Weakness HEENT: Reports: No Symptoms Pulmonary: Reports: No Symptoms Cardiovascular: Reports: No Symptoms Gastrointestinal: Reports: Abdominal Pain, Diarrhea Genitourinary: Reports: No Symptoms Musculoskeletal: Reports: No Symptoms Skin: Reports: No Symptoms Psychiatric: Reports: Confusion Neurological: Reports: No Symptoms Hematologic/Lymphatic: Reports: No Symptoms Immunologic: Reports: No Symptoms Exam - Exam Exam: See Below - Vital Signs Vital Signs: Last Vital Signs Temp 36.4 C 11/19/17 20:31 Pulse 61 11/19/17 20:31 Resp 16 11/19/17 20:31 BP 162/48 H 11/19/17 20:31 Pulse Ox 97 11/19/17 20:31 Weight: 63.503 kg - Exam General: Alert, Oriented HEENT: Conjunctiva Clear, Nares Patent, Normal Nasal Septum, Pupils Equal, Pupils Reactive Neck: Supple, Trachea Midline Lungs: Normal Respiratory Effort Cardiovascular: Regular Rate, Regular Rhythm GI/Abdominal Exam: Normal Bowel Sounds, Soft, Non-Tender, No Organomegaly, No Distention (Female) Exam: Deferred Rectal (Female) Exam: Deferred Back Exam: Normal Inspection Extremities: Normal Inspection, Non-Tender, Normal Capillary Refill Skin: Warm Neurological: Cranial Nerves Intact Neuro Extensive - Mental Status: Alert, Normal Mood/Affect, Other (limited with language barrier) Neuro Extensive - Motor, Sensory, Reflexes: CN II-XII Intact Psychiatric: Alert - Patient Data Result Diagrams: 11/19/17 15:16 11/19/17 15:16 *Q Meaningful Use (ADM) - VTE *Q VTE Criteria *Q: - Stroke *Q Stroke Criteria *Q: - AMI *Q AMI Criteria *Q: - Problem List (1) Abdominal pain SNOMED Code(s): 89708770 ICD Code: R10.9 - UNSPECIFIED ABDOMINAL PAIN Status: Acute Current Visit : Yes Qualifiers: Abdominal location: upper abdomen, unspecified Qualified Code(s): R10.10 - Upper abdominal pain, unspecified (2) Syncope SNOMED Code(s): 818247502 ICD Code: R55 - SYNCOPE AND COLLAPSE Status: Acute Current Visit: Yes Qualifiers: Syncope type: unspecified Qualified Code(s): R55 - Syncope and collapse Problem List Initiated/Reviewed/Updated: Yes Orders Last 24hrs: Active Orders 24 hr Category Date Time Status Carotid Comp [US] Routine Exams 11/20/17 11:00 Ordered Echo Comp wo Cont [US] Routine Exams 11/20/17 11:00 Ordered BMP [BASIC METABOLIC PANEL,BMP] [CHEM] DAILY Lab 11/20/17 05:00 Ordered BMP [BASIC METABOLIC PANEL,BMP] [CHEM] DAILY Lab 11/21/17 05:00 Ordered BMP [BASIC METABOLIC PANEL,BMP] [CHEM] DAILY Lab 11/22/17 05:00 Ordered CBC WITH AUTO DIFF [HEME] DAILY Lab 11/20/17 05:00 Ordered CBC WITH AUTO DIFF [HEME] DAILY Lab 11/21/17 05:00 Ordered CBC WITH AUTO DIFF [HEME] DAILY Lab 11/22/17 05:00 Ordered CRP [C-REACTIVE PROTEIN] [CHEM] DAILY Lab 11/20/17 05:00 Ordered CRP [C-REACTIVE PROTEIN] [CHEM] DAILY Lab 11/21/17 05:00 Ordered CRP [C-REACTIVE PROTEIN] [CHEM] DAILY Lab 11/22/17 05:00 Ordered FOLIC ACID [CHEM] Routine Lab 11/20/17 05:00 Ordered INFLUENZA A+B AG SCREEN [RM] Routine Lab 11/19/17 05:00 Ordered LIPID PANEL [CHEM] Routine Lab 11/20/17 05:00 Ordered MAGNESIUM [CHEM] DAILY Lab 11/20/17 05:00 Ordered MAGNESIUM [CHEM] DAILY Lab 11/21/17 05:00 Ordered MAGNESIUM [CHEM] DAILY Lab 11/22/17 05:00 Ordered MYCOPLASMA PNEUMONIAE IGM AB [CHEM] Routine Lab 11/20/17 05:00 Ordered VITAMIN B12 [CHEM] Routine Lab 11/20/17 05:00 Ordered Citalopram [Celexa] Med 11/20/17 09:00 Pending 10 mg PO DAILY Dicyclomine [Bentyl] Med 11/19/17 22:00 Pending 10 mg PO QIDACANDBED Donepezil [Aricept] Med 11/20/17 09:00 Ordered 10 mg PO DAILY Levothyroxine Med 11/20/17 09:00 Ordered 75 mcg PO DAILY Losartan/Hydrochlorothiazide [Losartan-HCTZ 100-25 MG] Med 11/21/17 09:00 Ordered 1 tab PO DAILY Megestrol [Megace 40 MG/ML Susp] Med 11/19/17 21:00 Ordered 20 mg PO QID Omeprazole Med 11/20/17 06:00 Ordered 20 mg PO BIDAC Oxybutynin Med 11/20/17 09:00 Ordered 5 mg PO DAILY Sucralfate [Carafate] Med 11/19/17 20:58 Ordered 1 gm PO DAILY PRN Medication Orders Citalopram Hydrobromide (Celexa) 10 mg PO DAILY [facility] Dicyclomine HCl (Bentyl) 10 mg PO QIDACANDBED [facility] Donepezil HCl (Aricept) 10 mg PO DAILY [facility] Levothyroxine Sodium (Levothyroxine) 75 mcg PO DAILY [facility] Non-Formulary Medication (Megestrol [Megace 40 Mg/Ml Susp]) 20 mg PO QID [facility] Non-Formulary Medication (Omeprazole) 20 mg PO BIDAC [facility] Non-Formulary Medication (Losartan/Hydrochlorothiazide [Losartan-Hctz 100-25 Mg] ) 1 tab PO DAILY [facility] Oxybutynin Chloride (Oxybutynin) 5 mg PO DAILY [facility] Sodium Chloride (Saline Flush) 10 ml FLUSH ASDIRECTED PRN PRN Reason: Keep Vein Open Last Admin: 11/19/17 15:57 Dose: 10 ml Sucralfate (Carafate) 1 gm PO DAILY PRN PRN Reason: Dyspepsia Assessment/Plan Comment:: Impression: AMS, baseline dementia, unspecified Ghanaian speaking Presyncopal Hypothyroidism without replacement therapy Recent Dx of H Pylori Plan: Home meds Daily labs CVA protocol Infectious protocol DVT/GI prophylaxis Consult PT/OT/CM re: JULI
[2017-11-19] MEDS: Temazepam 7.5 MG Cap PO PRN (23:01)
[2017-11-20] MEDS ORDERED: Sodium Chloride 0.45% 1,000 ML IV SCH (05:00)
[2017-11-20] MEDS: Omeprazole 20 MG Cap.CR**OWN MED PO SCH ×2 (05:25→17:33)
[2017-11-20] MEDS ORDERED: hydrALAZINE 20 MG/ML SDV ONE (06:21)
[2017-11-20] MEDS: hydrALAZINE 20 MG/ML SDV IVPUSH PRN (06:31)
--- NOTE | 2017-11-20 08:00 | CR ---
Chest: Frontal view of the chest was obtained. Comparison: No prior chest x-ray. Heart size appears within normal limits. Tortuous thoracic aorta is seen with atherosclerotic calcification also seen within the aortic arch. Lungs are clear. Scoliosis is noted within the spine. Bony structures are osteopenic. Impression: 1. Nothing acute is appreciated on frontal chest x-ray. Diagnostic code #2
[2017-11-20] MEDS ORDERED: LEVOTHYROXINE 75 MCG PO SCH (08:45)
[2017-11-20] MEDS ORDERED: Enoxaparin 30 MG/0.3 ML Syringe SUBCUT SCH (09:00)
[2017-11-20] MEDS: Enoxaparin 40 MG/0.4 ML Syringe SUBCUT SCH (09:03)
[2017-11-20] MEDS: MEGESTROL 40 MG/ML PO SCH ×4 (09:06→21:20)
[2017-11-20] MEDS: DICYCLOMINE 10 MG PO SCH ×2 (09:07→11:32)
[2017-11-20] MEDS: CITALOPRAM 10 MG PO SCH (09:09)
[2017-11-20] MEDS: LOSARTAN HCTZ PO SCH (09:10)
[2017-11-20] MEDS: OXYBUTYNIN 5 MG PO SCH (09:10)
--- NOTE | 2017-11-20 10:12 | US ---
Carotid ultrasound: Duplex and color flow imaging was obtained of the carotid arteries. Moderate amount of scattered plaque which is seen which is mostly calcified within the distal common carotid arteries as well as carotid bulb and origin of the internal and external carotid arteries. Surface cuello are irregular within the plaque. Measurements: Right side: CCA has a peak systolic velocity of 1.45 m/s. ICA has a peak systolic velocity of 0.96 m/s and peak end-diastolic velocity of 0.06 m/s. ECA has a peak systolic velocity of 0.99 m/s. Vertebral artery has a peak systolic velocity of 0.86 m/s. ICA/CCA ratio is 0.7. Left side: CCA has a peak systolic velocity of 1.20 m/s. ICA has a peak systolic velocity of 0.90 m/s and peak end-diastolic velocity of 0.09 m/s. ECA has a peak systolic velocity of 0.79 m/s. Vertebral artery has a peak systolic velocity of 0.71 m/s. ICA/CCA ratio is 0.8. Impression: 1. Moderate amount of scattered plaque. 2. Mildly elevated velocity within the right common carotid artery. Velocity measurements within both internal carotid arteries correspond to stenosis in the range of 1-49%. Diagnostic code #3
--- NOTE | 2017-11-20 14:52 | PCM.PN ---
- General Info Date of Service: 11/20/17 Admission Dx/Problem (Free Text): Syncope and Bradycardia Subjective Update: Follow Up Functional Status: Reports: Pain Controlled, Tolerating Diet, Ambulating, Urinating. Denies: New Symptoms - Review of Systems General: Denies: Fever, Weakness, Fatigue, Malaise, Chills HEENT: Reports: No Symptoms Pulmonary: Denies: Shortness of Breath Cardiovascular: Denies: Chest Pain, Palpitations, Dyspnea on Exertion, Lightheadedness Gastrointestinal: Denies: Abdominal Pain, Constipation, Decreased Appetite, Diarrhea, Nausea, Vomiting Genitourinary: Reports: No Symptoms Skin: Denies: Cyanosis, Mottled, Pallor, Diaphoresis Neurological: Denies: Confusion, Dizziness, Headache, Seizure, Syncope, Trouble Speaking, Weakness, Gait Disturbance Psychiatric: Denies: Depression, Anxiety, Agitation, Hallucinations Systems Review Comment:: No significant overnight or acute issues. She slept pretty good last night. She ambulated this morning with PT/OT w/o any issues. She denies any syncope, lightheadedness or heart palpitations. - Patient Data Vitals - Most Recent: Last Vital Signs Temp 36.3 C 11/20/17 06:18 Pulse 54 L 11/20/17 06:18 Resp 14 11/20/17 06:18 BP 139/82 11/20/17 12:01 Pulse Ox 95 11/20/17 06:18 Weight - Most Recent: 62.46 kg I&O - Last 24 Hours: Intake & Output 11/19/17 11/20/17 11/20/17 22:59 06:59 14:59 Intake Total 450 120 Balance 450 120 Lab Results Last 24 Hours: Laboratory Results - last 24 hr 11/20/17 11/20/17 11/20/17 Range/Units 06:01 06:01 06:01 WBC 11.40 H (3.98-10.04) K/mm3 RBC 4.30 (3.98-5.22) M/mm3 Hgb 13.1 (11.2-15.7) gm/L Hct 39.6 (34.1-44.9) % MCV 92.1 (79.4-94.8) fl MCH 30.5 (25.6-32.2) pg MCHC 33.1 (32.2-35.5) g/dl RDW Std Deviation 45.3 (36.4-46.3) fL Plt Count 238 (182-369) K/mm3 MPV 10.3 (9.4-12.3) fl Neut % (Auto) 63.2 (34.0-71.1) % Lymph % (Auto) 28.5 (19.3-51.7) % [place] % (Auto) 6.3 (4.7-12.5) % Eos % (Auto) 1.1 (0.7-5.8) Baso % (Auto) 0.3 (0.1-1.2) % Neut # (Auto) 7.21 H (1.56-6.13) K/mm3 Lymph # (Auto) 3.25 (1.18-3.74) K/mm3 [place] # (Auto) 0.72 H (0.24-0.36) K/mm3 Eos # (Auto) 0.12 (0.04-0.36) K/mm3 Baso # (Auto) 0.03 (0.01-0.08) K/mm3 ESR (0-20) mm/hr Sodium 138 (136-145) mEq/L Potassium 3.8 (3.5-5.1) mEq/L Chloride 104 (98-107) mEq/L Carbon Dioxide 26 (21-32) mEq/L Anion Gap 11.8 (5-15) BUN 14 (7-18) mg/dL Creatinine 0.9 (0.55-1.02) mg/dL Est Cr Clr Drug Dosing 35.74 mL/min Estimated GFR (MDRD) 60 (>60) mL/min BUN/Creatinine Ratio 15.6 (14-18) Glucose 81 L (83-115) mg/dL Calcium 8.5 (8.5-10.1) mg/dL Magnesium 1.9 (1.8-2.4) mg/dl Troponin I < 0.017 (0.00-0.056) ng/mL C-Reactive Protein 0.3 (<1.0) mg/dL Triglycerides 69 (<150) mg/dL Cholesterol 113 (<200) mg/dL LDL Cholesterol Direct 79 (<100) mg/dL HDL Cholesterol 33.0 L (40-59) mg/dL Vitamin B12 336 (193-986) pg/ml Folate 22.3 (8.6-58.9) ng/mL TSH 3rd Generation 2.034 (0.358-3.74) uIU/mL Mycoplasma pneumon IgM Negative (NEGATIVE) 11/20/17 Range/Units 06:01 WBC (3.98-10.04) K/mm3 RBC (3.98-5.22) M/mm3 Hgb (11.2-15.7) gm/L Hct (34.1-44.9) % MCV (79.4-94.8) fl MCH (25.6-32.2) pg MCHC (32.2-35.5) g/dl RDW Std Deviation (36.4-46.3) fL Plt Count (182-369) K/mm3 MPV (9.4-12.3) fl Neut % (Auto) (34.0-71.1) % Lymph % (Auto) (19.3-51.7) % [place] % (Auto) (4.7-12.5) % Eos % (Auto) (0.7-5.8) Baso % (Auto) (0.1-1.2) % Neut # (Auto) (1.56-6.13) K/mm3 Lymph # (Auto) (1.18-3.74) K/mm3 [place] # (Auto) (0.24-0.36) K/mm3 Eos # (Auto) (0.04-0.36) K/mm3 Baso # (Auto) (0.01-0.08) K/mm3 ESR 15 (0-20) mm/hr Sodium (136-145) mEq/L Potassium (3.5-5.1) mEq/L Chloride (98-107) mEq/L Carbon Dioxide (21-32) mEq/L Anion Gap (5-15) BUN (7-18) mg/dL Creatinine (0.55-1.02) mg/dL Est Cr Clr Drug Dosing mL/min Estimated GFR (MDRD) (>60) mL/min BUN/Creatinine Ratio (14-18) Glucose (83-115) mg/dL Calcium (8.5-10.1) mg/dL Magnesium (1.8-2.4) mg/dl Troponin I (0.00-0.056) ng/mL C-Reactive Protein (<1.0) mg/dL Triglycerides (<150) mg/dL Cholesterol (<200) mg/dL LDL Cholesterol Direct (<100) mg/dL HDL Cholesterol (40-59) mg/dL Vitamin B12 (193-986) pg/ml Folate (8.6-58.9) ng/mL TSH 3rd Generation (0.358-3.74) uIU/mL Mycoplasma pneumon IgM (NEGATIVE) Gerardo Results Last 24 Hours: Microbiology 11/19/17 23:32 Influenza Type A Antigen Screen - Final Nasal, Unspecified NEGATIVE INFLUENZA A VIRUS AG Influenza Type B Antigen Screen - Final NEGATIVE INFLUENZA B VIRUS AG Med Orders - Current: Current Medications Citalopram Hydrobromide (Celexa) 10 mg PO DAILY [facility] Last Admin: 11/20/17 09:09 Dose: 10 mg Dicyclomine HCl (Bentyl) 10 mg PO DAILY [facility] Donepezil HCl (Aricept) 10 mg PO BEDTIME [facility] Enoxaparin Sodium (Lovenox) 40 mg SUBCUT DAILY [facility] Last Admin: 11/20/17 09:03 Dose: 40 mg Hydralazine HCl (Apresoline) 20 mg IVPUSH Q2H PRN PRN Reason: s b/p >150 Last Admin: 11/20/17 06:31 Dose: 20 mg Levothyroxine Sodium (Levothyroxine) 75 mcg PO SuTuThSa@0600 [facility] Levothyroxine Sodium (Levothyroxine) 37.5 mcg PO MoWeFr@0600 [facility] Last Admin: 11/20/17 09:06 Dose: 37.5 mcg Megestrol Acetate (Megace 40 Mg/Ml Susp) 20 mg PO QID [facility] Last Admin: 11/20/17 12:49 Dose: 20 mg Omeprazole (Omeprazole) 20 mg PO BIDAC [facility] Last Admin: 11/20/17 05:25 Dose: 20 mg Oxybutynin Chloride (Oxybutynin Er) 5 mg PO DAILY [facility] Last Admin: 11/20/17 09:10 Dose: 5 mg Sucralfate Suspension 1 Gm/10 Ml 0 each PO DAILY PRN PRN Reason: Dyspepsia Losartan-Hctz 100-25 (Mg) 0 each PO DAILY [facility] Last Admin: 11/20/17 09:10 Dose: 1 each Sodium Chloride (Saline Flush) 10 ml FLUSH ASDIRECTED PRN PRN Reason: Keep Vein Open Last Admin: 11/19/17 15:57 Dose: 10 ml Temazepam (Restoril) 7.5 mg PO BEDTIME PRN PRN Reason: Insomnia Last Admin: 11/19/17 23:01 Dose: 7.5 mg Discontinued Medications Dicyclomine HCl (Bentyl) 10 mg PO QIDACANDBED [facility] Last Admin: 11/20/17 11:32 Dose: Not Given Hydralazine HCl (Apresoline) Confirm Administered Dose 20 mg .ROUTE .STK-MED ONE Stop: 11/20/17 06:22 Last Admin: 11/20/17 06:34 Dose: Not Given Hydromorphone HCl (Dilaudid) 0.5 mg IVPUSH ONETIME ONE Stop: 11/19/17 16:15 Last Admin: 11/19/17 16:21 Dose: 0.5 mg Sodium Chloride (Sodium Chloride 0.45%) 1,000 mls @ 100 mls/hr IV ASDIRECTED [facility] Stop: 11/20/17 13:00 Last Admin: 11/20/17 05:25 Dose: 100 mls/hr Non-Formulary Medication (Losartan/Hydrochlorothiazide [Losartan-Hctz 100-25 Mg] ) 1 tab PO DAILY [facility] - Exam General: Alert, Oriented, Cooperative, No Acute Distress HEENT: Pupils Equal, Pupils Reactive, EOMI, Mucous Membr. Moist/[place] Neck: Supple, Trachea Midline, No JVD Lungs: Clear to Auscultation, Normal Respiratory Effort Cardiovascular: Regular Rate, Regular Rhythm, No Murmurs GI/Abdominal Exam: Normal Bowel Sounds, Soft, Non-Tender, No Organomegaly, No Distention, No Abnormal Bruit (Female) Exam: Deferred Back Exam: Normal Inspection, Decreased Range of Motion Extremities: Normal Inspection, Normal Range of Motion, Non-Tender, No Pedal Edema, Normal Capillary Refill Peripheral Pulses: 2+: Dorsalis Pedis (L), Dorsalis Pedis (R) Skin: Warm, Dry, Intact Neurological: No New Focal Deficit Psy/Mental Status: Alert, Normal Affect, Normal Mood Physical Findings Comments:: Primary language is Trin[place] - Problem List Review Problem List Initiated/Reviewed/Updated: Yes - My Orders Last 24 Hours: My Active Orders 11/20/17 14:46 Brain wo Cont [MR] Urgent 11/20/17 14:51 EKG 12 Lead [EKG Documentation Completion] [RC] ROUTINE - Plan Plan:: Impression: Acute: Dementia - Likely Vascular in etiology - She seems to be back at baseline - Continue Aricept Carotid Atherosclerosis - Lipid Panel: Low HDL level - AHA diet - Recommend against statin Malignant Hypertension - Carries a hx/o HTN - Documented BPs of: 166/77 mmHg, 162/48 mmHg, 210/58 mmgHg and 205/69 mmHg - Resume home dose ARB/HCTZ - PRN Hydralazine for BP > 140/90 - Clonidine patch if no response to above treatment Recent Dx of H Pylori vs Gastric/Intestinal Spasm - On Bentyl Resolved: S/p AMS - Has baseline dementia, likely vascular (noted on brain MRI) - Medications (Aricept/Oxybutynin/Bentyl) vs Sinus Bradycardia - She appears to be at baseline now S/p Presyncopal - Likely Medications induced (Aricept/Oxybutynin/Nentyl)>> Sinus Bradycardia - BP--> not hypotensive - +/- Carotid Atherosclerosis on Carotid U/S - Has had no more episode since admission Chronic: HTN GERD, on PPI and Sucralfate Hypothyroidism Dementia Gastric/Intestinal Spasm, on Bentyl Depression Hx/o Sinus Bradycardia- repeat EKG shows sinus rhythm with a hR if 62 Plan: She is clinically stable Continue current treatment Home meds Daily labs CVA protocol Infectious protocol DVT/GI prophylaxis Consult PT/OT/CM She is to resume HHS with NS, PT/OT and [employer]LE [employer]TER Additional orders as above D/c in AM
--- NOTE | 2017-11-20 15:43 | MR ---
MRI brain Technique: T1 sagittal; T2, T2 FLAIR, T1 and diffusion axial and T1 FLAIR coronal. Comparison: No prior intracranial imaging. Findings: Ventricles along the basal cisterns and sulci over the convexities are moderately prominent. Diffuse increased signal is seen within the periventricular and subcortical white matter compatible with small vessel ischemic demyelination change. No other abnormal areas of signal are seen. Normal signal void is seen within the major cerebral arteries within the skull base. No acute diffusion abnormalities are appreciated. Visualized paranasal sinuses are clear. Impression: 1. Senescent change as noted above. 2. No acute diffusion abnormalities are seen. Diagnostic code #3
[2017-11-20] MEDS ORDERED: DONEPEZIL 10 MG PO SCH (21:00)
[2017-11-20] MEDS: Temazepam 7.5 MG Cap PO PRN (21:20)
[2017-11-21] MEDS: Omeprazole 20 MG Cap.CR**OWN MED PO SCH (05:48)
[2017-11-21] MEDS: hydrALAZINE 20 MG/ML SDV IVPUSH PRN (05:55)
[2017-11-21] MEDS ORDERED: LEVOTHYROXINE 75 MCG PO SCH (06:00)
[2017-11-21 07:44] VITALS: BP 102/50
[2017-11-21] MEDS ORDERED: DICYCLOMINE 10 MG PO SCH (09:00)
[2017-11-21] MEDS: Enoxaparin 40 MG/0.4 ML Syringe SUBCUT SCH (09:43)
[2017-11-21] MEDS: CITALOPRAM 10 MG PO SCH (09:44)
[2017-11-21] MEDS: OXYBUTYNIN 5 MG PO SCH (09:44)
[2017-11-21] MEDS: LOSARTAN HCTZ PO SCH (09:44)
[2017-11-21] MEDS: MEGESTROL 40 MG/ML PO SCH ×2 (09:44→13:32)
--- NOTE | 2017-11-21 13:10 | PCM.DCSUM1 ---
Discharge Summary - Hospital Course Brief History: 82 year old female first language is Slovenian reports to the ED with her daughter and grandchildren. She resides in her daughter's home. And apparently was in her bedroom and may have fallen, it is not known whether she passed out. The door to her bedroom was closed. Her daughter stated that she has been more confused since returning from [place] where she had been living before [place]. The most recent physical condition treated had been H Pylori. She has recently been diagnosed with dementia and has an appointment with a neurologist in [place]. Her most recent meds for dementia were started by her PCP, the focus of the neurology visit was assessment and treatment of her dementia to slow then progression. Reportedly there have been three falls recently without LOC. She will be admitted as obs with telemetry. - Discharge Data Discharge Date: 11/21/17 Discharge Disposition: Home, Self-Care 01 Condition: Good - Discharge Diagnosis/Problem(s) (1) Pre-syncope SNOMED Code(s): 658390320 ICD Code: R55 - SYNCOPE AND COLLAPSE Status: Resolved (2) Vascular dementia SNOMED Code(s): 250407044 ICD Code: F01.50 - VASCULAR DEMENTIA WITHOUT BEHAVIORAL DISTURBANCE Status : Chronic Qualifiers: Dementia behavioral disturbance: without behavioral disturbance Qualified Code(s): F01.50 - Vascular dementia without behavioral disturbance (3) Malignant hypertension SNOMED Code(s): 63226218 ICD Code: I10 - ESSENTIAL (PRIMARY) HYPERTENSION Status: Chronic (4) Bradycardia SNOMED Code(s): 91027882 ICD Code: R00.1 - BRADYCARDIA, UNSPECIFIED Status: Inactive (5) Carotid atherosclerosis SNOMED Code(s): 438964090 ICD Code: I65.29 - OCCLUSION AND STENOSIS OF UNSPECIFIED CAROTID ARTERY Status: Acute Qualifiers: Laterality: unspecified laterality Qualified Code(s): I65.29 - Occlusion and stenosis of unspecified carotid artery (6) Altered mental status SNOMED Code(s): 328694580 ICD Code: R41.82 - ALTERED MENTAL STATUS, UNSPECIFIED Status: Resolved Qualifiers: Altered mental status type: transient alteration of awareness Qualified Code(s): R40.4 - Transient alteration of awareness - Patient Summary/Data Operative Procedure(s) Performed: None Complications: None Consults: Consultations 11/19/17 21:39 Consult to Physical Therapy [PT Evaluation and Treatment] [CONS] Routine 11/19/17 21:40 Consult to Occupational Therapy [OT Evaluation and Treatment] [CONS] Routine 11/19/17 21:41 Consult to Case Management [CONS] Routine Labs Pending at D/C: None Recommended Follow-up Testing/Procedures: None Planned Operative Procedure(s) after DC: None Hospital Course: Patient was primarily admitted for presyncopal episode. She carried no previous history in the past. However we felt this was due to polypharmacy and not stroke or cardiac in origin. No head CT scan performed but her brain MRI showed no acute abnormal findings. Her 2-D echo showed normal ejection fraction with no regional wall motion abnormalities. However her cardiac ultrasound showed moderate atherosclerosis. She did have a history of sinus bradycardia on previous EKG but her repeat EKG showed normal sinus rhythm. Of note, she did not have any neurological complaints or deficits at the time she was under my care. Her hospital course was uncomplicated. The rest of her chronic medical illness remained stable during his admission. Patient was stable upon discharge. Her daughter was updated about her discharge care plans on the day of discharge. We advised patient to see PCP to reassess for polypharmacy. We also recommended for her to see specialists for further evaluation of her underlying intestinal and urologic issues as well as worsening dementia. The daughter was further advised to bring mom back should her symptoms persist or get worse. Both expressed understanding and agreement with the plans as discussed above. Patient is to follow-up with her primary care in 1 week. - Patient Instructions Diet: Heart Healthy Diet, Usual Diet as Tolerated Fluid Restriction: 2000 mL Activity: As Tolerated Driving: Do Not Drive Showering/Bathing: May Shower Notify Provider of: Fever, Increased Pain, Nausea and/or Vomiting Other/Special Instructions: - You are high risk for polypharmacy. - Recommend you discuss with PCP about the synergisic effects of some of your routine home medications. - Recommend you see specialist for GI and Urology for further evaluation. - Resume HHS with NS, PT/OT and EXECUTIVE ASST. - Follow up with your PCP in 1 week - Discharge Plan Home Medications: Home Meds Citalopram [Citalopram HBr] 10 mg PO DAILY 11/19/17 [History] Dicyclomine [Bentyl] 10 mg PO DAILY 11/19/17 [History] Donepezil HCl [Aricept] 10 mg PO BEDTIME 11/19/17 [History] Levothyroxine Sodium [Synthroid] 75 mcg PO DAILY 11/19/17 [History] Losartan/Hydrochlorothiazide [Losartan-HCTZ 100-25 MG] 1 tab PO DAILY 11/19/17 [ History] Megestrol [Megace 40 MG/ML Susp] 20 mg PO QID 11/19/17 [History] Omeprazole 20 mg PO BIDAC 11/19/17 [History] Oxybutynin 5 mg PO DAILY 11/19/17 [History] Sucralfate [Carafate] 10 ml PO QID PRN 11/19/17 [History] Patient Handouts: Carotid Artery Disease, [id number], Near-Syncope, Easy-to- Read, Dementia, [id number], Managing Your Hypertension, Vascular Dementia Referrals: Trudy Fernandez SERVICE SPECIALIST [Primary Care Provider] - 11/27/17 1:00 pm - Discharge Summary/Plan Comment DC Time >30 min.: Yes (45 mins) Discharge Summary/Plan Comment: Discharge to Home - General Info Date of Service: 11/21/17 Admission Dx/Problem (Free Text: Syncope and Bradycardia Subjective Update: Follow Up Functional Status: Reports: Pain Controlled, Tolerating Diet, Ambulating, Urinating. Denies: New Symptoms - Review of Systems General: Denies: Fever, Weakness, Fatigue, Malaise, Chills, Night Sweats HEENT: Reports: No Symptoms Pulmonary: Denies: Shortness of Breath Cardiovascular: Denies: Chest Pain, Palpitations, Dyspnea on Exertion, Edema, Lightheadedness Gastrointestinal: Reports: Flatus. Denies: Abdominal Pain, Constipation, Decreased Appetite, Diarrhea, Difficulty Swallowing, Hematochezia, Melena, Nausea, Vomiting Genitourinary: Reports: No Symptoms Musculoskeletal: Reports: No Symptoms Skin: Denies: Cyanosis, Jaundice, Mottled, Pallor, Diaphoresis, Pruritis, Rash Neurological: Reports: Confusion (baseline memory impairment). Denies: Dizziness, Headache, Numbness, Paresthesia, Pre-Existing Deficit, Seizure, Syncope, Tingling, Tremors, Trouble Speaking, Difficulty Walking, Weakness, Change in Speech, Gait Disturbance Psychiatric: Denies: Depression, Anxiety, Agitation, Cravings, Hallucinations Systems Review Comment: No significant overnight or acute issues. She slept through the night. She reports no GI issues. She has been ambulating w/o difficulties. No lightheadedness or dizziness. She feels pretty good overall. - Patient Data Vitals - Most Recent: Last Vital Signs Temp 37.4 C 11/21/17 07:36 Pulse 82 11/21/17 07:36 Resp 20 11/21/17 07:36 BP 102/50 L 11/21/17 07:36 Pulse Ox 94 L 11/21/17 07:36 Weight - Most Recent: 62.596 kg I&O - Last 24 hours: Intake & Output 11/20/17 11/21/17 11/21/17 22:59 06:59 14:59 Intake Total 1730 100 Balance 1730 100 Lab Results - Last 24 hrs: Laboratory Results - last 24 hr 11/21/17 11/21/17 Range/Units 05:47 05:47 WBC 8.77 (3.98-10.04) K/mm3 RBC 4.31 (3.98-5.22) M/mm3 Hgb 13.2 (11.2-15.7) gm/L Hct 39.6 (34.1-44.9) % MCV 91.9 (79.4-94.8) fl MCH 30.6 (25.6-32.2) pg MCHC 33.3 (32.2-35.5) g/dl RDW Std Deviation 46.9 H (36.4-46.3) fL Plt Count 248 (182-369) K/mm3 MPV 10.2 (9.4-12.3) fl Neut % (Auto) 57.7 (34.0-71.1) % Lymph % (Auto) 32.7 (19.3-51.7) % [place] % (Auto) 7.9 (4.7-12.5) % Eos % (Auto) 0.9 (0.7-5.8) Baso % (Auto) 0.2 (0.1-1.2) % Neut # (Auto) 5.06 (1.56-6.13) K/mm3 Lymph # (Auto) 2.87 (1.18-3.74) K/mm3 [place] # (Auto) 0.69 H (0.24-0.36) K/mm3 Eos # (Auto) 0.08 (0.04-0.36) K/mm3 Baso # (Auto) 0.02 (0.01-0.08) K/mm3 Sodium 138 (136-145) mEq/L Potassium 3.8 (3.5-5.1) mEq/L Chloride 105 (98-107) mEq/L Carbon Dioxide 26 (21-32) mEq/L Anion Gap 10.8 (5-15) BUN 21 H (7-18) mg/dL Creatinine 0.9 (0.55-1.02) mg/dL Est Cr Clr Drug Dosing 35.74 mL/min Estimated GFR (MDRD) 60 (>60) mL/min BUN/Creatinine Ratio 23.3 H (14-18) Glucose 83 (83-115) mg/dL Calcium 8.5 (8.5-10.1) mg/dL Magnesium 1.8 (1.8-2.4) mg/dl C-Reactive Protein 0.8 (<1.0) mg/dL Med Orders - Current: Current Medications Citalopram Hydrobromide (Celexa) 10 mg PO DAILY [facility] Last Admin: 11/21/17 09:44 Dose: 10 mg Dicyclomine HCl (Bentyl) 10 mg PO DAILY [facility] Last Admin: 11/21/17 09:44 Dose: 10 mg Donepezil HCl (Aricept) 10 mg PO BEDTIME [facility] Last Admin: 11/20/17 21:20 Dose: 10 mg Enoxaparin Sodium (Lovenox) 40 mg SUBCUT DAILY [facility] Last Admin: 11/21/17 09:43 Dose: 40 mg Hydralazine HCl (Apresoline) 20 mg IVPUSH Q2H PRN PRN Reason: s b/p >150 Last Admin: 11/21/17 05:55 Dose: 20 mg Levothyroxine Sodium (Levothyroxine) 75 mcg PO SuTuThSa@0600 [facility] Last Admin: 11/21/17 05:48 Dose: 75 mcg Levothyroxine Sodium (Levothyroxine) 37.5 mcg PO MoWeFr@0600 [facility] Last Admin: 11/20/17 09:06 Dose: 37.5 mcg Megestrol Acetate (Megace 40 Mg/Ml Susp) 20 mg PO QID [facility] Last Admin: 11/21/17 09:44 Dose: 20 mg Omeprazole (Omeprazole) 20 mg PO BIDAC [facility] Last Admin: 11/21/17 05:48 Dose: 20 mg Oxybutynin Chloride (Oxybutynin Er) 5 mg PO DAILY [facility] Last Admin: 11/21/17 09:44 Dose: 5 mg Sucralfate Suspension 1 Gm/10 Ml 0 each PO DAILY PRN PRN Reason: Dyspepsia Losartan-Hctz 100-25 (Mg) 0 each PO DAILY [facility] Last Admin: 11/21/17 09:44 Dose: 1 each Sodium Chloride (Saline Flush) 10 ml FLUSH ASDIRECTED PRN PRN Reason: Keep Vein Open Last Admin: 11/19/17 15:57 Dose: 10 ml Temazepam (Restoril) 7.5 mg PO BEDTIME PRN PRN Reason: Insomnia Last Admin: 11/20/17 21:20 Dose: 7.5 mg Discontinued Medications Dicyclomine HCl (Bentyl) 10 mg PO QIDACANDBED [facility] Last Admin: 11/20/17 11:32 Dose: Not Given Hydralazine HCl (Apresoline) Confirm Administered Dose 20 mg .ROUTE .STK-MED ONE Stop: 11/20/17 06:22 Last Admin: 11/20/17 06:34 Dose: Not Given Hydromorphone HCl (Dilaudid) 0.5 mg IVPUSH ONETIME ONE Stop: 11/19/17 16:15 Last Admin: 11/19/17 16:21 Dose: 0.5 mg Sodium Chloride (Sodium Chloride 0.45%) 1,000 mls @ 100 mls/hr IV ASDIRECTED [facility] Stop: 11/20/17 13:00 Last Admin: 11/20/17 05:25 Dose: 100 mls/hr Non-Formulary Medication (Losartan/Hydrochlorothiazide [Losartan-Hctz 100-25 Mg] ) 1 tab PO DAILY [facility] - Exam General: Reports: Alert, Cooperative, No Acute Distress HEENT: Reports: Pupils Equal, Pupils Reactive, EOMI, Mucous Membr. Moist/[place] Neck: Reports: Supple, Trachea Midline, No JVD, No Thyromegaly Lungs: Reports: Clear to Auscultation, Normal Respiratory Effort Cardiovascular: Reports: Regular Rate, Regular Rhythm GI/Abdominal Exam: Normal Bowel Sounds, Soft, Non-Tender, No Organomegaly, No Distention, No Abnormal Bruit, No Mass (Female) Exam: Deferred Rectal (Female) Exam: Deferred Back Exam: Reports: Normal Inspection, Decreased Range of Motion Extremities: Normal Inspection, Normal Range of Motion, Non-Tender, No Pedal Edema, Normal Capillary Refill Skin: Reports: Warm, Dry, Intact Neurological: Reports: No New Focal Deficit Psy/Mental Status: Reports: Alert, Normal Affect, Normal Mood *Q Meaningful Use (DIS) - VTE *Q VTE Criteria *Q: - Stroke *Q Stroke Criteria *Q: - AMI *Q AMI Criteria *Q:
== END 2017-11-21 14:00 | disposition home or self-care (01) ==
LOC: EDBD 14:52 → JD.ED 14:52 → MERGE 19:38 → JD.MS 19:38
PROVIDERS: ADMIT Internal Medicine Cardiovascular Disease; ATTEND Internal Medicine Cardiovascular Disease
DX: R55 Syncope and collapse (principal); F01.50 Vascular dementia, unspecified severity, without behavioral disturbance, psychotic disturbance, mood disturbance, and anxiety; I10 Essential (primary) hypertension; R00.1 Bradycardia, unspecified; I65.29 Occlusion and stenosis of unspecified carotid artery; R40.4 Transient alteration of awareness; K21.9 Gastro-esophageal reflux disease without esophagitis; E03.9 Hypothyroidism, unspecified; Z79.899 Other long term (current) drug therapy
CPT/HCPCS: 36415; 70551; 71045; 80048; 80053; 80061; 81001; 82607; 82746; 83735; 84443; 84484; 85025; 85652; 86140; 86738; 87804; 93005; 93306; 93880; 96361; 96372; 96374; 96375; 96376; 97116; 97162; 97165; 99285; A9270; G0378; J0360; J1170; J1650; J7030; J7050; 93010; 99217; 99225

== ENCOUNTER 2019-03-04 09:12 | Emergency (ER) | payer MEDICARE, MEDICAID ==
[2019-03-04 09:29] VITALS: BP 116/50
[2019-03-04] MEDS ORDERED: Sodium Chloride 0.9% 500 ML IV ONE (09:44)
[2019-03-04] MEDS ORDERED: Sodium Chloride 0.9% 10 ML Syringe FLUSH PRN (09:44)
--- NOTE | 2019-03-04 09:54 | EDM.PDOC ---
ED HPI GENERAL MEDICAL PROBLEM - General Chief Complaint: General Stated Complaint: [facility] Time Seen by Provider: 03/04/19 09:29 Source of Information: Reports: Patient, Alf Records, RN Notes Reviewed - History of Present Illness INITIAL COMMENTS - FREE TEXT/NARRATIVE: 83-year-old female has been sent here from [facility] for planned hospital admission for treatment of worsening renal failure. She does have history of chronic renal insufficiency with creatinine of 2.6, BUN from lab work drawn about one week ago. She also does have history of hypertension, dementia, congestive heart failure. Labs were drawn this morning and showed that her creatinine did increase to 5.24, BUN to 73. With her dementia patient gives very little history. However she does deny chest or abdominal pain. She denies trouble breathing but did arrive with O2 sats running 87-88% on room air. 4 she was placed on O2 2 L nasal cannula with sats no rising into the 92-94 % range. - Related Data Allergies Allergy/AdvReac Type Severity Reaction Status Date / Time No Known Allergies Allergy Verified 03/04/19 09:20 Home Meds: Home Meds Citalopram [Citalopram HBr] 10 mg PO DAILY 11/19/17 [History] Dicyclomine [Bentyl] 10 mg PO BID 11/19/17 [History] Levothyroxine Sodium [Synthroid] 75 mcg PO DAILY 11/19/17 [History] Losartan/Hydrochlorothiazide [Losartan-HCTZ 100-25 MG] 1 tab PO DAILY 11/19/17 [ History] Megestrol [Megace 40 MG/ML Susp] 10 ml PO DAILY 11/19/17 [History] Omeprazole 20 mg PO DAILY 11/19/17 [History] amLODIPine [Norvasc] 5 mg PO DAILY 07/03/18 [History] Acetaminophen [Tylenol] 650 mg PO BID PRN 07/12/18 [History] traMADol [Ultram] 50 mg PO Q6H PRN 07/12/18 [History] Acetaminophen 650 mg PO TID 07/30/18 [History] Dicyclomine [Bentyl] 10 mg PO BID PRN 07/30/18 [History] Amoxicillin 1,000 mg PO BID 03/04/19 [History] Bisacodyl 10 mg PO ONETIME PRN 03/04/19 [History] Bisacodyl 10 mg RECTAL ONETIME PRN 03/04/19 [History] Clarithromycin 500 mg PO BID 03/04/19 [History] Dicyclomine [Bentyl] 10 mg PO QID 03/04/19 [History] metroNIDAZOLE [Flagyl] 500 mg PO TID 03/04/19 [History] Past Medical History HEENT History: Reports: Impaired Vision, Macular Degeneration Other HEENT History: wears glasses Cardiovascular History: Reports: CAD, High Cholesterol, Hypertension Other Cardiovascular History: angioplasty, atherosclerotic heart disease Respiratory History: Reports: None Gastrointestinal History: Reports: GERD Genitourinary History: Reports: None FLEXIBLE NANNY History: Reports: Musculoskeletal History: Reports: Osteoarthritis Other Musculoskeletal History: dorsalgia, generalized muscle weakness Neurological History: Reports: Alzheimers Disease Psychiatric History: Reports: Anxiety, Depression Endocrine/Metabolic History: Reports: Hypothyroidism Hematologic History: Reports: None Immunologic History: Reports: None Oncologic (Cancer) History: Reports: None Dermatologic History: Reports: None - Infectious Disease History Infectious Disease History: Reports: None - Past Surgical History HEENT Surgical History: Reports: Cataract Surgery Cardiovascular Surgical History: Reports: Percutaneous Transluminal Angioplasty GI Surgical History: Reports: Cholecystectomy, Colonoscopy Female Surgical History: Reports: Hysterectomy, Salpingo-Oophorectomy Musculoskeletal Surgical History: Reports: Knee Replacement Social & Family History - Family History Family Medical History: Noncontributory - Tobacco Use Smoking Status *Q: Never Smoker - Caffeine Use Caffeine Use: Reports: Coffee Other Caffeine Use: two cups in morning - Recreational Drug Use Recreational Drug Use: No - Living Situation & Occupation Living situation: Reports: , Extended Care Facility ([facility]) Occupation: Retired ED ROS GENERAL - Review of Systems Review Of Systems: See Below Constitutional: Denies: Fever, Chills, Diaphoresis HEENT: Denies: Throat Pain Respiratory: Reports: Shortness of Breath (Probable) Cardiovascular: Denies: Chest Pain GI/Abdominal: Denies: Abdominal Pain, Vomiting Musculoskeletal: Denies: Leg Pain Skin: Denies: Rash Neurological: Reports: Weakness (Generalized), Other (Not sure if patient is ambulatory or not) ED EXAM, GENERAL - Physical Exam Exam: See Below General Appearance: Alert, No Apparent Distress Eye Exam: Bilateral Eye: PERRL Throat/Mouth: Other Head: Atraumatic (Oral mucosa mildly dry). No: Facial Swelling Neck: Supple Respiratory/Chest: Respiratory Distress. No: Rales (Mild tachypnea), Rhonchi, Wheezing Cardiovascular: Regular Rate, Rhythm GI/Abdominal: Soft, Non-Tender Extremities: No: Pedal Edema, Leg Pain, Increased Warmth, Redness Neurological: Alert, No Motor/Sensory Deficits, Other (Patient's speech is very limited apparently secondary to underlying dementia, she does answer yes and no simple questions, she does make eye contact, she does mumble some other words that I'm not able to understand at this time.) EKG INTERPRETATION EKG Date: 03/04/19 Rhythm: NSR [place]: Normal P-Wave: Present QRS: LBBB (Incomplete LBBB) ST-T: Other (T-wave inversion aVL) Course - Vital Signs Text/Narrative:: BUN and creatinine have increased markedly from 2.6, 49 one week ago to 5.24, 73 this morning. She is DNR/DNI. We are giving IV fluids at this time, Chest x- ray does not show cardiomegaly or pulmonary congestion but there does appear to be a small mass in the right hilum and some nodules or mass effect left parahilar as well that I don't see on her chest x-ray of about 1 year ago. I'm waiting on a radiology read for that. Plan will be for medical admission to try stabilize back toward baseline status realizing that she has chronic illness that won't be totally cured. Last Recorded V/S: Last Vital Signs Temp 98.3 F 03/04/19 09:25 Pulse 84 03/04/19 09:25 Resp 20 03/04/19 09:25 BP 116/50 L 03/04/19 09:25 Pulse Ox 94 L 03/04/19 09:49 - Orders/Labs/Meds Orders: Active Orders 24 hr Category Date Time Status EKG 12 Lead [EKG Documentation Completion] [RC] STAT Care 03/04/19 09:44 Active Oxygen Therapy [RC] ASDIRECTED Care 03/04/19 09:44 Active Peripheral IV Care [RC] . DIRECTED Care 03/04/19 09:45 Active Peripheral IV Insertion Adult [OM.PC] Stat Oth 03/04/19 09:44 Ordered Labs: Laboratory Tests 03/04/19 Range/Units 09:50 NT-Pro-B Natriuret Pep 790 H (0-450) pg/mL Meds: Medications Discontinued Medications Generic Name Dose Route Start Last Admin Trade Name Sanjeev PRN Reason Stop Dose Admin Sodium Chloride 500 mls @ 999 mls/hr 03/04/19 09:44 03/04/19 09:54 Normal Saline IV 03/04/19 10:14 999 mls/hr .BOLUS ONE Administration Sodium Chloride 1,000 mls @ 250 mls/hr 03/04/19 11:45 03/04/19 11:40 Normal Saline IV 250 mls/hr ASDIRECTED CHUY Administration Sodium Chloride 10 ml 03/04/19 09:44 03/04/19 09:55 Saline Flush FLUSH 10 ml ASDIRECTED PRN Administration Keep Vein Open - Re-Assessments/Exams Free Text/Narrative Re-Assessment/Exam: 03/04/19 10:45. Discussed with Dr Downing, Hospitalist sales representative consultant. He would like her transferred to a [facility] where specialty care would be available for optimal medical management. 11:15. Have called [facility]. 03/04/19 11:222. Dr Flower does accept patient in transfer, will send by ground ambulance Departure - Departure Time of Disposition: 11:10 Disposition: DC/Tfer to Acute Hospital 02 Condition: Serious Clinical Impression: Dehydration Renal failure Qualifiers: Renal failure chronicity: acute on chronic Chronic kidney disease stage: unspecified stage - Discharge Information Referrals: Jayme Marion MD [Primary Care Provider] - Forms: ED Department Discharge, ED Department Discharge - My Orders Last 24 Hours: My Active Orders 03/04/19 09:44 EKG 12 Lead [EKG Documentation Completion] [RC] STAT Oxygen Therapy [RC] ASDIRECTED Peripheral IV Insertion Adult [OM.PC] Stat 03/04/19 09:45 Peripheral IV Care [RC] . DIRECTED - Assessment/Plan Last 24 Hours: My Active Orders 03/04/19 09:44 EKG 12 Lead [EKG Documentation Completion] [RC] STAT Oxygen Therapy [RC] ASDIRECTED Peripheral IV Insertion Adult [OM.PC] Stat 03/04/19 09:45 Peripheral IV Care [RC] . DIRECTED
--- NOTE | 2019-03-04 11:05 | CR ---
Chest: Portable view of the chest was obtained. Comparison: Prior CT chest exam of 07/03/18. Nodular density is seen overlying the right mediastinum within the right hilum. This is most likely due to vessel being seen. Heart size is normal. Tortuous thoracic aorta is seen with atherosclerotic calcification. Old healed proximal right humeral fracture is seen. Minimal right upper lobe atelectasis is seen. Lungs otherwise are clear. Pressure: 1. Incidental findings. Nothing acute is appreciated. Diagnostic code #2
[2019-03-04] MEDS ORDERED: Sodium Chloride 0.9% 1,000 ML IV SCH (11:45)
== END 2019-03-04 12:20 ==
LOC: EDBD 09:12 → JD.ED 09:12
DX: N17.9 Acute kidney failure, unspecified (principal); I12.9 Hypertensive chronic kidney disease with stage 1 through stage 4 chronic kidney disease, or unspecified chronic kidney disease; N18.9 Chronic kidney disease, unspecified; E86.0 Dehydration; F41.9 Anxiety disorder, unspecified; F32.9 Major depressive disorder, single episode, unspecified; E03.9 Hypothyroidism, unspecified; E78.00 Pure hypercholesterolemia, unspecified; I25.10 Atherosclerotic heart disease of native coronary artery without angina pectoris; K21.9 Gastro-esophageal reflux disease without esophagitis; G30.9 Alzheimer's disease, unspecified; F02.80 Dementia in other diseases classified elsewhere, unspecified severity, without behavioral disturbance, psychotic disturbance, mood disturbance, and anxiety; Z79.899 Other long term (current) drug therapy
CPT/HCPCS: 36415; 71045; 83880; 93005; 96360; 96361; 99285; J7040; 93010; 99283

== ENCOUNTER 2019-05-06 07:16 | Inpatient (IN) | payer MEDICARE, MEDICAID ==
--- NOTE | 2019-05-06 07:24 | EDM.PDOC ---
ED HPI GENERAL MEDICAL PROBLEM - General Chief Complaint: Respiratory Problem Stated Complaint: [facility] Time Seen by Provider: 05/06/19 07:24 Source of Information: Reports: Patient, EMS - History of Present Illness INITIAL COMMENTS - FREE TEXT/NARRATIVE: 83-year-old female brought in by EMS with shortness of breath. patient resides at [facility]. And she had worsening shortness of breath this morning according to the daughter who visited with the patient yesterday, the patient had increasing swelling in her lower extremities and was more short of breath then. Patient has a history of coronary artery disease. There is no history of chest pain. He has a history of vascular dementia stage III chronic kidney disease irritable bowel osteoarthritis Miguel Angel. depression hypertension GERD and ASCVD - Related Data Allergies Allergy/AdvReac Type Severity Reaction Status Date / Time No Known Allergies Allergy Verified 05/06/19 07:31 Home Meds: Home Meds Citalopram [Citalopram HBr] 10 mg PO DAILY 11/19/17 [History] Dicyclomine [Bentyl] 10 mg PO BID 11/19/17 [History] Omeprazole 20 mg PO DAILY 11/19/17 [History] amLODIPine [Norvasc] 10 mg PO DAILY 07/03/18 [History] Acetaminophen [Tylenol] 650 mg PO BID PRN 07/12/18 [History] Acetaminophen 650 mg PO TID 07/30/18 [History] Dicyclomine [Bentyl] 10 mg PO BID PRN 07/30/18 [History] Furosemide [Lasix] 20 mg PO BID 04/20/19 [History] Levothyroxine [Synthroid] 75 mcg PO DAILY 04/20/19 [History] guaiFENesin [Mucinex] 600 mg PO BID 04/20/19 [History] Past Medical History HEENT History: Reports: Impaired Vision, Macular Degeneration Other HEENT History: wears glasses Cardiovascular History: Reports: CAD, High Cholesterol, Hypertension Other Cardiovascular History: angioplasty, atherosclerotic heart disease Respiratory History: Reports: None Gastrointestinal History: Reports: GERD Genitourinary History: Reports: None [employer] History: Reports: Musculoskeletal History: Reports: Osteoarthritis Other Musculoskeletal History: dorsalgia, generalized muscle weakness Neurological History: Reports: Alzheimers Disease Psychiatric History: Reports: Anxiety, Depression Endocrine/Metabolic History: Reports: Hypothyroidism Hematologic History: Reports: None Immunologic History: Reports: None Oncologic (Cancer) History: Reports: None Dermatologic History: Reports: None - Infectious Disease History Infectious Disease History: Reports: None - Past Surgical History HEENT Surgical History: Reports: Cataract Surgery Cardiovascular Surgical History: Reports: Percutaneous Transluminal Angioplasty GI Surgical History: Reports: Cholecystectomy, Colonoscopy Female Surgical History: Reports: Hysterectomy, Salpingo-Oophorectomy Musculoskeletal Surgical History: Reports: Knee Replacement Social & Family History - Family History Family Medical History: Noncontributory - Caffeine Use Caffeine Use: Reports: Coffee Other Caffeine Use: two cups in morning - Living Situation & Occupation Living situation: Reports: , Extended Care Facility ([facility]) Occupation: Retired ED ROS GENERAL - Review of Systems Review Of Systems: See Below Constitutional: Reports: No Symptoms HEENT: Reports: No Symptoms Respiratory: Reports: Shortness of Breath, Cough. Denies: Pleuritic Chest Pain Cardiovascular: Reports: Edema. Denies: Chest Pain GI/Abdominal: Reports: No Symptoms : Reports: Incontinence (This is not new) Musculoskeletal: Reports: No Symptoms Skin: Reports: No Symptoms Neurological: Reports: No Symptoms Psychiatric: Reports: No Symptoms (He has depression and is treated no new psychiatric apparent problems) ED EXAM, GENERAL - Physical Exam Exam: See Below Exam Limited By: Other (She speaks reasonably well Mongolian) General Appearance: Other (Mildly lethargic but does awaken and cooperate with the exam) Head: Atraumatic, Normocephalic Neck: Normal Inspection, Supple, Non-Tender, Full Range of Motion Respiratory/Chest: No Respiratory Distress, Lungs Clear, Normal Breath Sounds Cardiovascular: Regular Rate, Rhythm, Systolic Murmur (Best along the right upper sternal border 2/6), Other (2-3+ pitting edema on the lower extremities) GI/Abdominal: Normal Bowel Sounds, Soft, Non-Tender Back Exam: Normal Inspection Extremities: Pedal Edema EKG INTERPRETATION EKG Date: 05/06/19 Rhythm: Other (Normal sinus with occasional PVC) Jasper: LAD-Left Jasper Deviation P-Wave: Present QRS: Other (Borderline in interventricular conduction delay) ST-T: Other (On specific nondiagnostic changes) QT: Normal Comparison: No Change (No change from the 10th of this month.) Course - Vital Signs Last Recorded V/S: Last Vital Signs Temp 36.6 C 08/26/19 07:24 Pulse 86 05/06/19 07:24 Resp 18 05/06/19 07:24 BP 155/59 H 05/06/19 07:24 Pulse Ox 95 05/06/19 07:46 - Orders/Labs/Meds Orders: Active Orders 24 hr Category Date Time Status EKG Documentation Completion [RC] STAT Care 05/06/19 07:46 Active Jay Catheter Insertion [Insert Urinary Catheter] [OM. Care 05/06/19 09:20 Ordered PC] Stat RT Aerosol Therapy [RC] ASDIRECTED Care 05/06/19 07:46 Active Urinary Catheter Assessment [RC] ASDIRECTED Care 05/06/19 09:28 Active CULTURE BLOOD [BC] Stat Lab 05/06/19 11:22 Received CULTURE BLOOD [BC] Stat Lab 05/06/19 11:43 Received Potassium Chloride [KCl 10 MEQ in Water 100 ML] 10 meq Med 05/06/19 09:30 Active Premix Bag 1 bag IV ASDIRECTED Potassium Chloride [KCl 10 MEQ in Water 100 ML] 10 meq Med 05/06/19 09:30 Active Premix Bag 1 bag IV Q1H Blood Culture x2 Reflex Set [OM.PC] Stat Oth 05/06/19 10:42 Ordered Medication Orders Potassium Chloride 10 meq/ (Premix) 100 mls @ 100 mls/hr IV ASDIRECTED CHUY Last Admin: 05/06/19 09:44 Dose: 100 mls/hr Potassium Chloride 10 meq/ (Premix) 100 mls @ 100 mls/hr IV Q1H CHUY Stop: 05/06/19 15:29 Last Admin: 05/06/19 11:42 Dose: Admin: 05/06/19 10:46 Dose: Not Given Admin: 05/06/19 10:45 Dose: 100 mls/hr Labs: Laboratory Tests 05/06/19 05/06/19 05/06/19 Range/Units 08:07 08:07 08:07 WBC 8.31 (3.98-10.04) K/mm3 RBC 3.36 L (3.98-5.22) M/mm3 Hgb 10.1 L D (11.2-15.7) gm/L Hct 31.5 L (34.1-44.9) % MCV 93.8 D (79.4-94.8) fl MCH 30.1 (25.6-32.2) pg MCHC 32.1 L (32.2-35.5) g/dl RDW Std Deviation 57.1 H (36.4-46.3) fL Plt Count 293 (182-369) K/mm3 MPV 10.3 (9.4-12.3) fl Neutrophils % (Manual) 65 H (40-60) % Band Neutrophils % 0 (0-10) % Lymphocytes % (Manual) 28 (20-40) % Atypical Lymphs % 0 % Monocytes % (Manual) 3 (2-10) % Eosinophils % (Manual) 4 (0.7-5.8) % Basophils % (Manual) 0 L (0.1-1.2) Platelet Estimate Adequate RBC Morph Comment Normal Sodium 147 H (136-145) mEq/L Potassium 3.0 L (3.5-5.1) mEq/L Chloride 109 H (98-107) mEq/L Carbon Dioxide 30 (21-32) mEq/L Anion Gap 11.0 (5-15) BUN 17 (7-18) mg/dL Creatinine 1.2 H (0.55-1.02) mg/dL Est Cr Clr Drug Dosing 25.07 mL/min Estimated GFR (MDRD) 43 (>60) mL/min BUN/Creatinine Ratio 14.2 (14-18) Glucose 94 (83-115) mg/dL Lactic Acid 0.6 (0.4-2.0) mmol/L Calcium 8.6 (8.5-10.1) mg/dL Magnesium 2.1 (1.8-2.4) mg/dl Total Bilirubin 0.4 (0.2-1.0) mg/dL AST 23 (15-37) U/L ALT 15 (14-59) U/L Alkaline Phosphatase 71 (46-116) U/L Troponin I < 0.017 (0.00-0.056) ng/mL NT-Pro-B Natriuret Pep (0-450) pg/mL Total Protein 7.0 (6.4-8.2) g/dl Albumin 2.6 L (3.4-5.0) g/dl Globulin 4.4 gm/dL Albumin/Globulin Ratio 0.6 L (1-2) Urine Color (Yellow) Urine Appearance (Clear) Urine pH (5.0-8.0) Ur Specific [place] (1.005-1.030) Urine Protein (Negative) Urine Glucose (UA) (Negative) Urine Ketones (Negative) Urine Occult Blood (Negative) Urine Nitrite (Negative) Urine Bilirubin (Negative) Urine Urobilinogen (0.2-1.0) Ur Leukocyte Esterase (Negative) Urine RBC (0-5) /hpf Urine WBC (0-5) /hpf Ur Squamous Epith Cells (0-5) /hpf Urine Bacteria (FEW) /hpf Urine Mucus (FEW) /hpf 05/06/19 05/06/19 Range/Units 08:07 09:20 WBC (3.98-10.04) K/mm3 RBC (3.98-5.22) M/mm3 Hgb (11.2-15.7) gm/L Hct (34.1-44.9) % MCV (79.4-94.8) fl MCH (25.6-32.2) pg MCHC (32.2-35.5) g/dl RDW Std Deviation (36.4-46.3) fL Plt Count (182-369) K/mm3 MPV (9.4-12.3) fl Neutrophils % (Manual) (40-60) % Band Neutrophils % (0-10) % Lymphocytes % (Manual) (20-40) % Atypical Lymphs % % Monocytes % (Manual) (2-10) % Eosinophils % (Manual) (0.7-5.8) % Basophils % (Manual) (0.1-1.2) Platelet Estimate RBC Morph Comment Sodium (136-145) mEq/L Potassium (3.5-5.1) mEq/L Chloride (98-107) mEq/L Carbon Dioxide (21-32) mEq/L Anion Gap (5-15) BUN (7-18) mg/dL Creatinine (0.55-1.02) mg/dL Est Cr Clr Drug Dosing mL/min Estimated GFR (MDRD) (>60) mL/min BUN/Creatinine Ratio (14-18) Glucose (83-115) mg/dL Lactic Acid (0.4-2.0) mmol/L Calcium (8.5-10.1) mg/dL Magnesium (1.8-2.4) mg/dl Total Bilirubin (0.2-1.0) mg/dL AST (15-37) U/L ALT (14-59) U/L Alkaline Phosphatase (46-116) U/L Troponin I (0.00-0.056) ng/mL NT-Pro-B Natriuret Pep 2744 H (0-450) pg/mL Total Protein (6.4-8.2) g/dl Albumin (3.4-5.0) g/dl Globulin gm/dL Albumin/Globulin Ratio (1-2) Urine Color Yellow (Yellow) Urine Appearance Clear (Clear) Urine pH 7.0 (5.0-8.0) Ur Specific [place] 1.020 (1.005-1.030) Urine Protein 2+ H (Negative) Urine Glucose (UA) Negative (Negative) Urine Ketones Negative (Negative) Urine Occult Blood Trace-intact H (Negative) Urine Nitrite Negative (Negative) Urine Bilirubin Negative (Negative) Urine Urobilinogen 0.2 (0.2-1.0) Ur Leukocyte Esterase 1+ H (Negative) Urine RBC 0-5 (0-5) /hpf Urine WBC 10-20 H (0-5) /hpf Ur Squamous Epith Cells Not seen (0-5) /hpf Urine Bacteria Moderate H (FEW) /hpf Urine Mucus Few (FEW) /hpf Meds: Medications Generic Name Dose Route Start Last Admin Trade Name Freq PRN Reason Stop Dose Admin Potassium Chloride 10 meq/ 100 mls @ 100 mls/hr 05/06/19 09:30 05/06/19 09:44 Premix IV 100 mls/hr ASDIRECTED CHUY Administration Potassium Chloride 10 meq/ 100 mls @ 100 mls/hr 05/06/19 09:30 05/06/19 11:42 Premix IV 05/06/19 15:29 Not Given Q1H CHUY Discontinued Medications Generic Name Dose Route Start Last Admin Trade Name Freq PRN Reason Stop Dose Admin Albuterol/Ipratropium 3 ml 05/06/19 07:45 05/06/19 08:04 Duoneb 3.0-0.5 Mg/3 Ml NEB 05/06/19 07:46 3 ml ONETIME ONE Administration Furosemide 80 mg 05/06/19 07:45 05/06/19 08:03 Lasix IVPUSH 05/06/19 07:46 80 mg NOW ONE Administration Levofloxacin/Dextrose 750 mg/ 150 mls @ 100 mls/hr 05/06/19 10:51 05/06/19 11 :47 Premix IV 05/06/19 12:20 100 mls/hr ONETIME ONE Administration Potassium Chloride 20 meq 05/06/19 07:45 05/06/19 09:29 Klor-Con M20 PO 05/06/19 07:46 Not Given ONETIME ONE - Re-Assessments/Exams Free Text/Narrative Re-Assessment/Exam: 05/06/19 08:49 According to the intermediate she is much more with it that she is at this time. UA and head CT pending as well as initial labs chest x-ray showed tortuous aorta cardiomegaly slightly increased vascular markings and atelectasis versus fluid along the minor fissure on the right. Patient did have a breathing treatment with DuoNeb's and she is somewhat better after this 05/06/19 09:22 Chest x-ray I did review with Dr. Wright. She could have some increased vascular congestion there with her rotations really tough to see exactly was going on she could have an infiltrate hiding back there and I can't get a good enough view of the lung bases. We'll go ahead and get a CT without contrast. He has a anemia noted on her CBC not requiring transfusion at this time her troponin is normal her proBNP is elevated and her potassium was low at 3.0. Remaining labs pending include a UA 05/06/19 10:55 CT of her head is unremarkable for acute changes chest CT was obtained which shows mild CHF with small pleural effusions she has what could be a pneumonia. Blood cultures obtained and she started on Levaquin case reviewed with Dr. Lindsay, or hospitalist who will assume care. 05/06/19 12:22 We are awaiting her bed assignment on the floor however I did visit with the patient she's feeling a little bit better. And she is more alert and talking. Departure - Departure Time of Disposition: 10:56 Disposition: Admitted As Inpatient 65 Clinical Impression: Pneumonia, Congestive heart failure (CHF), Hypoxia - Discharge Information Referrals: Jayme Marion MD [Primary Care Provider] - Forms: ED Department Discharge - My Orders Last 24 Hours: My Active Orders 05/06/19 07:46 EKG Documentation Completion [RC] STAT RT Aerosol Therapy [RC] ASDIRECTED 05/06/19 09:20 Jay Catheter Insertion [Insert Urinary Catheter] [OM.PC] Stat 05/06/19 09:28 Urinary Catheter Assessment [RC] ASDIRECTED 05/06/19 09:30 Potassium Chloride [KCl 10 MEQ in Water 100 ML] 10 meq Premix Bag 1 bag IV ASDIRECTED Potassium Chloride [KCl 10 MEQ in Water 100 ML] 10 meq Premix Bag 1 bag IV Q1H 05/06/19 10:42 Blood Culture x2 Reflex Set [OM.PC] Stat 05/06/19 11:22 CULTURE BLOOD [BC] Stat 05/06/19 11:43 CULTURE BLOOD [BC] Stat - Assessment/Plan Last 24 Hours: My Active Orders 05/06/19 07:46 EKG Documentation Completion [RC] STAT RT Aerosol Therapy [RC] ASDIRECTED 05/06/19 09:20 Jay Catheter Insertion [Insert Urinary Catheter] [OM.PC] Stat 05/06/19 09:28 Urinary Catheter Assessment [RC] ASDIRECTED 05/06/19 09:30 Potassium Chloride [KCl 10 MEQ in Water 100 ML] 10 meq Premix Bag 1 bag IV ASDIRECTED Potassium Chloride [KCl 10 MEQ in Water 100 ML] 10 meq Premix Bag 1 bag IV Q1H 05/06/19 10:42 Blood Culture x2 Reflex Set [OM.PC] Stat 05/06/19 11:22 CULTURE BLOOD [BC] Stat 05/06/19 11:43 CULTURE BLOOD [BC] Stat
[2019-05-06] MEDS ORDERED: Albuterol/Ipratropium 3.0-0.5 MG/3 ML Neb Soln NEB ONE (07:45)
[2019-05-06] MEDS ORDERED: Furosemide 40 MG/4 ML VIAL IVPUSH ONE (07:45)
[2019-05-06] MEDS ORDERED: Potassium Chloride 20 MEQ Tab.ER PO ONE (07:45)
--- NOTE | 2019-05-06 08:38 | CR ---
Addendum: Prior chest x-ray of 03/04/19 is now available for comparison. Linear density within the right midlung is an interval change from previous study compatible with atelectasis. No other change is appreciated from prior exam. --- Addendum1 above dictated on [05/06/2019 09:13] by [Elayne Wright, Reginald Damian] --- --- Addendum1 above signed on [05/06/2019 09:16] by [Elayne Wright, Reginald Damian] --- --- Original report below dictated on [05/06/2019 08:02] by [Elayne Wright, Reginald Damian] --- --- Original report below signed on [05/06/2019 08:33] by [Elayne Wright, Reginald Damian] --- Chest: Portable view of the chest was obtained. Comparison: No prior chest imaging. Slight atelectasis/scarring is noted within the right mid lung around the right minor fissure. Heart size is slightly enlarged. Tortuous thoracic aorta is seen. Lungs otherwise are clear. Degenerative change is noted within the right shoulder. Bony structures are osteopenic. Impression: 1. Findings as described above. Nothing acute is seen. Diagnostic code #2 --- Addendum1 signed ---
--- NOTE | 2019-05-06 09:20 | CT ---
Head CT Technique: Multiple axial sections through the brain were obtained. Intravenous contrast was not utilized. Comparison: Prior head CT study of 04/20/19. Findings: Ventricles along with basal cisterns and sulci over the convexities are moderately prominent. Diminished density is noted within the periventricular and subcortical white matter compatible with small vessel ischemic demyelination change. Similar findings are also noted within portions of the basal ganglia. Basal ganglia also contains several old appearing lacunar infarcts. No other abnormal parenchymal densities are seen. No evidence of intracranial hemorrhage. No midline shift or mass effect is seen. Mild atherosclerotic calcification is noted within the vertebral vessels as well as atherosclerotic change within the carotid siphon. Bone window settings were reviewed which showed the mastoid sinuses to appear clear. No acute paranasal sinus disease is seen. No acute calvarial abnormality is identified. Impression: 1. Senescent change as noted above. No acute intracranial abnormality is identified. No appreciable change is seen from prior CT study. Diagnostic code #2
[2019-05-06] MEDS ORDERED: Potassium Chloride 10 MEQ in Premix Bag 1 BAG IV SCH ×2 (09:30→15:00)
--- NOTE | 2019-05-06 10:06 | CT ---
CT chest Technique: Multiple axial sections were obtained from above the lung apices inferiorly through the lung bases. Intravenous contrast was not utilized. Findings: Surgical clips are seen within the quan hepatis presumably from prior cholecystectomy. Nothing acute is appreciated within the visualized upper abdominal structures. Small bilateral pleural effusions are noted. Small area of focal consolidation is noted within the right lower lung and difficult to exclude minimal area of pneumonia. Slight atelectasis is also noted within the left base. Ground-glass appearance is noted within the perihilar regions suggesting mild pulmonary vascular congestion. Heart is enlarged. Aorta shows atherosclerotic calcification and ectasia without aneurysm. Deformity within the proximal right humerus is seen from prior healed fracture. Mild scattered degenerative change is seen within the spine. Compression deformity noted within the upper lumbar spine which is most likely old. No acute osseous abnormality is suspected. Impression: 1. Cardiomegaly with small bilateral pleural effusions and slight perihilar ground-glass appearance most likely due to mild pulmonary vascular congestion. Findings most likely due to mild CHF. 2. Small area of focal consolidation within the right lung base possibly due to small area of pneumonia if patient has infectious symptoms. 3. Mild atelectasis within the left lung base. 4. Other findings believed to be incidental as described above. Diagnostic code #3
[2019-05-06] MEDS: Potassium Chloride 10 MEQ in Premix Bag 1 BAG IV SCH ×6 (10:45→19:39)
[2019-05-06] MEDS ORDERED: Levofloxacin/Dextrose 5%-Water 750 MG in Premix Bag 1 BAG IV ONE (10:51)
[2019-05-06] MEDS ORDERED: Acetaminophen 325 MG Tab PO PRN ×2 (13:23→13:28)
--- NOTE | 2019-05-06 13:23 | PCM.HP.2 ---
H&P History of Present Illness - General Date of Service: 05/06/19 Admit Problem/Dx: Admission Diagnosis/Problem Admission Diagnosis/Problem Congestive heart failure Source of Information: Patient, Family, Old Records, Provider, RN Notes Reviewed , Significant Other History Limitations: Reports: Altered Mental Status, Language Barrier - History of Present Illness Initial Comments - Free Text/Narative: This is an 83 yo Elderly female with past medical hx/o Impaired Vision , HTN, HLD, CAD S/p Angioplasty, Aortic Regurgitation, GERD, OA/DJD, CKD Stage 3 , Generalized Muscle Weakness, Hypothyroidism, Alzheimer's Dementia, Anxiety and Depression who comes in from [facility] due to worsening shortness of breath and increased leg edema noticed by her daughter on her a visit to her yesterday at the facility. Her initial work up in ED shows a CBC remarkable for RBC of 3.36, Hgb of 10.1, Hct of 31.5, MCHC of 32.1, RDW of 57.1, and Neutrophils of 65%. Her Chemistry is significant for Na of 147, K of 3, Cl of 109, Cr of 1.2, ProNP of 2744 and albumin of 2.6. Her UA is not quite suggestive of UTI. Her Chest CT scan report read as cardiomegaly with small b/l pleural effusions and slight khris-hilar ground lass appearance due to pulmonary vascular congestion. She is primarily coming in for medical management of acute congestive heart failure. - Related Data Allergies/Adverse Reactions: Allergies Allergy/AdvReac Type Severity Reaction Status Date / Time No Known Allergies Allergy Verified 05/06/19 15:17 Home Medications: Home Meds Citalopram [Citalopram HBr] 10 mg PO DAILY 11/19/17 [History] Dicyclomine [Bentyl] 10 mg PO BID 11/19/17 [History] Omeprazole 20 mg PO DAILY 11/19/17 [History] amLODIPine [Norvasc] 10 mg PO DAILY 07/03/18 [History] Acetaminophen [Tylenol] 650 mg PO BID PRN 07/12/18 [History] Acetaminophen 650 mg PO TID 07/30/18 [History] Dicyclomine [Bentyl] 10 mg PO BID PRN 07/30/18 [History] Furosemide [Lasix] 20 mg PO BID 04/20/19 [History] Levothyroxine [Synthroid] 75 mcg PO DAILY 04/20/19 [History] guaiFENesin [Mucinex] 600 mg PO BID 04/20/19 [History] Past Medical History HEENT History: Reports: Impaired Vision, Macular Degeneration Other HEENT History: wears glasses Cardiovascular History: Reports: CAD, High Cholesterol, Hypertension Other Cardiovascular History: angioplasty, atherosclerotic heart disease Respiratory History: Reports: None Gastrointestinal History: Reports: GERD Genitourinary History: Reports: None 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: Musculoskeletal History: Reports: Osteoarthritis Other Musculoskeletal History: dorsalgia, generalized muscle weakness Neurological History: Reports: Alzheimers Disease Psychiatric History: Reports: Anxiety, Depression Endocrine/Metabolic History: Reports: Hypothyroidism Hematologic History: Reports: None Immunologic History: Reports: None Oncologic (Cancer) History: Reports: None Dermatologic History: Reports: None - Infectious Disease History Infectious Disease History: Reports: None - Past Surgical History HEENT Surgical History: Reports: Cataract Surgery Cardiovascular Surgical History: Reports: Percutaneous Transluminal Angioplasty GI Surgical History: Reports: Cholecystectomy, Colonoscopy Female Surgical History: Reports: Hysterectomy, Salpingo-Oophorectomy Musculoskeletal Surgical History: Reports: Knee Replacement Social & Family History - Family History Family Medical History: Noncontributory - Tobacco Use Smoking Status *Q: Unknown Ever Smoked - Caffeine Use Caffeine Use: Reports: Coffee Other Caffeine Use: two cups in morning - Recreational Drug Use Recreational Drug Use: No - Living Situation & Occupation Living situation: Reports: , Extended Care Facility ([facility]) Occupation: Retired H&P Review of Systems - Review of Systems: Review Of Systems: ROS reveals no pertinent complaints other than HPI. Exam - Exam Exam: See Below - Vital Signs Vital Signs: Last Vital Signs Temp 36.1 C 05/06/19 13:05 Pulse 86 05/06/19 07:24 Resp 18 05/06/19 07:24 BP 155/59 H 05/06/19 07:24 Pulse Ox 95 05/06/19 07:46 Weight: 88.133 kg - Exam General: Alert, Cooperative. No: Mild Distress HEENT: Conjunctiva Clear, Hearing Intact, Mucosa Moist & [place], Nares Patent, Normal Nasal Septum, Posterior Pharynx Clear, Pupils Equal, Pupils Reactive Neck: Supple, Trachea Midline Lungs: Normal Respiratory Effort, Decreased Breath Sounds Cardiovascular: Regular Rate, Regular Rhythm, Systolic Murmur GI/Abdominal Exam: Normal Bowel Sounds, Soft, Non-Tender, No Organomegaly, No Distention, No Abnormal Bruit (Female) Exam: Deferred Rectal (Female) Exam: Deferred Back Exam: Normal Inspection, Decreased Range of Motion Extremities: Normal Inspection, Normal Range of Motion, Non-Tender, Pedal Edema , Other (2+ pitting edema on b/l lower extremity) Peripheral Pulses: 1+: Dorsalis Pedis (L), Dorsalis Pedis (R) Skin: Warm, Dry, Intact Neuro Extensive - Mental Status: Normal Cognition, Memory Intact Neuro Extensive - Motor, Sensory, Reflexes: CN II-XII Intact (limited but grossly intact) Psychiatric: Alert, Normal Affect, Normal Mood - Patient Data Lab Results Last 24 hrs: Laboratory Results - last 24 hr 05/06/19 05/06/19 05/06/19 Range/Units 08:07 08:07 08:07 WBC 8.31 (3.98-10.04) K/mm3 RBC 3.36 L (3.98-5.22) M/mm3 Hgb 10.1 L D (11.2-15.7) gm/L Hct 31.5 L (34.1-44.9) % MCV 93.8 D (79.4-94.8) fl MCH 30.1 (25.6-32.2) pg MCHC 32.1 L (32.2-35.5) g/dl RDW Std Deviation 57.1 H (36.4-46.3) fL Plt Count 293 (182-369) K/mm3 MPV 10.3 (9.4-12.3) fl Neutrophils % (Manual) 65 H (40-60) % Band Neutrophils % 0 (0-10) % Lymphocytes % (Manual) 28 (20-40) % Atypical Lymphs % 0 % Monocytes % (Manual) 3 (2-10) % Eosinophils % (Manual) 4 (0.7-5.8) % Basophils % (Manual) 0 L (0.1-1.2) Platelet Estimate Adequate RBC Morph Comment Normal Sodium 147 H (136-145) mEq/L Potassium 3.0 L (3.5-5.1) mEq/L Chloride 109 H (98-107) mEq/L Carbon Dioxide 30 (21-32) mEq/L Anion Gap 11.0 (5-15) BUN 17 (7-18) mg/dL Creatinine 1.2 H (0.55-1.02) mg/dL Est Cr Clr Drug Dosing 25.07 mL/min Estimated GFR (MDRD) 43 (>60) mL/min BUN/Creatinine Ratio 14.2 (14-18) Glucose 94 (83-115) mg/dL Lactic Acid 0.6 (0.4-2.0) mmol/L Calcium 8.6 (8.5-10.1) mg/dL Magnesium 2.1 (1.8-2.4) mg/dl Total Bilirubin 0.4 (0.2-1.0) mg/dL AST 23 (15-37) U/L ALT 15 (14-59) U/L Alkaline Phosphatase 71 (46-116) U/L Troponin I < 0.017 (0.00-0.056) ng/mL NT-Pro-B Natriuret Pep (0-450) pg/mL Total Protein 7.0 (6.4-8.2) g/dl Albumin 2.6 L (3.4-5.0) g/dl Globulin 4.4 gm/dL Albumin/Globulin Ratio 0.6 L (1-2) Urine Color (Yellow) Urine Appearance (Clear) Urine pH (5.0-8.0) Ur Specific [place] (1.005-1.030) Urine Protein (Negative) Urine Glucose (UA) (Negative) Urine Ketones (Negative) Urine Occult Blood (Negative) Urine Nitrite (Negative) Urine Bilirubin (Negative) Urine Urobilinogen (0.2-1.0) Ur Leukocyte Esterase (Negative) Urine RBC (0-5) /hpf Urine WBC (0-5) /hpf Ur Squamous Epith Cells (0-5) /hpf Urine Bacteria (FEW) /hpf Urine Mucus (FEW) /hpf 05/06/19 05/06/19 Range/Units 08:07 09:20 WBC (3.98-10.04) K/mm3 RBC (3.98-5.22) M/mm3 Hgb (11.2-15.7) gm/L Hct (34.1-44.9) % MCV (79.4-94.8) fl MCH (25.6-32.2) pg MCHC (32.2-35.5) g/dl RDW Std Deviation (36.4-46.3) fL Plt Count (182-369) K/mm3 MPV (9.4-12.3) fl Neutrophils % (Manual) (40-60) % Band Neutrophils % (0-10) % Lymphocytes % (Manual) (20-40) % Atypical Lymphs % % Monocytes % (Manual) (2-10) % Eosinophils % (Manual) (0.7-5.8) % Basophils % (Manual) (0.1-1.2) Platelet Estimate RBC Morph Comment Sodium (136-145) mEq/L Potassium (3.5-5.1) mEq/L Chloride (98-107) mEq/L Carbon Dioxide (21-32) mEq/L Anion Gap (5-15) BUN (7-18) mg/dL Creatinine (0.55-1.02) mg/dL Est Cr Clr Drug Dosing mL/min Estimated GFR (MDRD) (>60) mL/min BUN/Creatinine Ratio (14-18) Glucose (83-115) mg/dL Lactic Acid (0.4-2.0) mmol/L Calcium (8.5-10.1) mg/dL Magnesium (1.8-2.4) mg/dl Total Bilirubin (0.2-1.0) mg/dL AST (15-37) U/L ALT (14-59) U/L Alkaline Phosphatase (46-116) U/L Troponin I (0.00-0.056) ng/mL NT-Pro-B Natriuret Pep 2744 H (0-450) pg/mL Total Protein (6.4-8.2) g/dl Albumin (3.4-5.0) g/dl Globulin gm/dL Albumin/Globulin Ratio (1-2) Urine Color Yellow (Yellow) Urine Appearance Clear (Clear) Urine pH 7.0 (5.0-8.0) Ur Specific [place] 1.020 (1.005-1.030) Urine Protein 2+ H (Negative) Urine Glucose (UA) Negative (Negative) Urine Ketones Negative (Negative) Urine Occult Blood Trace-intact H (Negative) Urine Nitrite Negative (Negative) Urine Bilirubin Negative (Negative) Urine Urobilinogen 0.2 (0.2-1.0) Ur Leukocyte Esterase 1+ H (Negative) Urine RBC 0-5 (0-5) /hpf Urine WBC 10-20 H (0-5) /hpf Ur Squamous Epith Cells Not seen (0-5) /hpf Urine Bacteria Moderate H (FEW) /hpf Urine Mucus Few (FEW) /hpf Result Diagrams: 05/07/19 05:17 05/07/19 05:17 EKG INTERPRETATION EKG Date: 05/06/19 Rhythm: Other (Sinus Rhyhtm with PVCs) Comparison: No Change Problem List Initiated/Reviewed/Updated: Yes Orders Last 24hrs: Active Orders 24 hr Category Date Time Status Patient Status [ADT] Stat ADT 05/06/19 12:42 Active EKG Documentation Completion [RC] STAT Care 05/06/19 07:46 Active Jay Catheter Insertion [Insert Urinary Catheter] [OM. Care 05/06/19 09:20 Ordered PC] Stat RT Aerosol Therapy [RC] ASDIRECTED Care 05/06/19 07:46 Active Urinary Catheter Assessment [RC] ASDIRECTED Care 05/06/19 09:28 Active CULTURE BLOOD [BC] Stat Lab 05/06/19 11:22 Received CULTURE BLOOD [BC] Stat Lab 05/06/19 11:43 Received Potassium Chloride [KCl 10 MEQ in Water 100 ML] 10 meq Med 05/06/19 09:30 Active Premix Bag 1 bag IV ASDIRECTED Potassium Chloride [KCl 10 MEQ in Water 100 ML] 10 meq Med 05/06/19 09:30 Active Premix Bag 1 bag IV Q1H Potassium Chloride [KCl 10 MEQ in Water 100 ML] 10 meq Med 05/06/19 12:30 Active Premix Bag 1 bag IV Q1H Blood Culture x2 Reflex Set [OM.PC] Stat Oth 05/06/19 10:42 Ordered Medication Orders Potassium Chloride 10 meq/ (Premix) 100 mls @ 100 mls/hr IV ASDIRECTED CHUY Last Admin: 05/06/19 09:44 Dose: 100 mls/hr Potassium Chloride 10 meq/ (Premix) 100 mls @ 100 mls/hr IV Q1H CHUY Stop: 05/06/19 15:29 Last Admin: 05/06/19 11:42 Dose: Admin: 05/06/19 10:46 Dose: Not Given Admin: 05/06/19 10:45 Dose: 100 mls/hr Potassium Chloride 10 meq/ (Premix) 100 mls @ 100 mls/hr IV Q1H CHUY Stop: 05/06/19 16:29 Last Admin: 05/06/19 13:13 Dose: 100 mls/hr Assessment/Plan Comment:: Assessment: Acute: HF - Carries a hx/o HF with Preserved EF of 65% 11/20/2017 - Has Moderate Aortic Valve Regurgitation - CT scan report read as cardiomegaly with small b/l pleural effusions and slight khris-hilar ground lass appearance due to pulmonary vascular congestion - ProBNP of 2744 - Peripheral Edema with pleural effusion - Heart failure regime: diuretics, salt/fluid restriction, Is/Os an daily weight - 2D echo in AM Right Lower Atelectasis (consolidation noted on imaging study) - Afebrile w/o Leukocytosis - No need for antibiotics - IS as directed and Pulmonary Exercise Small Bilateral Pleura Effusion - 2/2 Heart Failure - IS as directed and Pulmonary Exercise Hypokalemia - K 3.0 - 2/2 Loop Diuretic Use - Replete and monitor Chronic: Impaired Vision, HTN, HLD, CAD S/p Angioplasty, Aortic Regurgitation, GERD, OA/DJD, CKD Stage 3, Generalized Muscle Weakness, Hypothyroidism, Alzheimer's Dementia, Anxiety and Depression Plan: Admit to [facility] with Tele Routine AM Labs Resume Home Meds Fall and ing Prevention PT/OT to assess and treat DVT/GI Prophylaxis SW/CM for d/c planning Code status: DNR/DNI Additional orders as above Prognosis is good
[2019-05-06] MEDS ORDERED: Polyethylene Glycol 3350 Powder 17 GM Packet PO PRN (13:28)
[2019-05-06] MEDS ORDERED: Ondansetron 4 MG/2 ML SDV IV PRN (13:28)
[2019-05-06] MEDS ORDERED: Promethazine 6.25 MG in Sodium Chloride 0.9% 50 ML IV PRN (13:28)
[2019-05-06] MEDS ORDERED: Bisacodyl 5 MG Tab PO PRN (13:28)
[2019-05-06] MEDS ORDERED: Acetaminophen/HYDROcodone 325-5 MG Tab PO PRN (13:28)
[2019-05-06] MEDS ORDERED: Docusate Sodium 100 MG Cap PO PRN (13:28)
[2019-05-06] MEDS ORDERED: Albuterol/Ipratropium 3.0-0.5 MG/3 ML Neb Soln NEB PRN (13:28)
[2019-05-06] MEDS: Acetaminophen 325 MG Tab PO SCH ×2 (15:14→20:54)
[2019-05-06] MEDS: guaiFENesin 600 MG Tab.ER PO SCH (20:54)
[2019-05-06] MEDS: Furosemide 20 MG Tab PO SCH (20:55)
[2019-05-06] MEDS: Dicyclomine 10 MG Cap PO SCH (20:55)
[2019-05-07] MEDS: Potassium Chloride 10 MEQ in Premix Bag 1 BAG IV SCH ×10 (00:41→22:59)
[2019-05-07] MEDS: Magnesium Sulfate/Water 2 GM in Premix Bag 1 BAG IV STA ×2 (00:41→07:04)
--- NOTE | 2019-05-07 08:00 | PCM.PN ---
- General Info Date of Service: 05/07/19 Admission Dx/Problem (Free Text): Admission Diagnosis/Problem Admission Diagnosis/Problem Congestive heart failure Subjective Update: Follow Up Functional Status: Reports: Pain Controlled, Tolerating Diet, Urinating. Denies : New Symptoms - Review of Systems General: Denies: Fever, Weakness, Fatigue, Malaise, Chills HEENT: Reports: No Symptoms Pulmonary: Denies: Shortness of Breath, Wheezing Cardiovascular: Reports: Edema. Denies: Chest Pain, Dyspnea on Exertion, Lightheadedness Gastrointestinal: Denies: Abdominal Pain, Nausea, Vomiting Genitourinary: Reports: No Symptoms Musculoskeletal: Reports: No Symptoms Skin: Reports: No Symptoms Neurological: Reports: Difficulty Walking, Weakness, Gait Disturbance. Denies: Confusion Psychiatric: Denies: Depression, Anxiety, Agitation, Hallucinations - Patient Data Vitals - Most Recent: Last Vital Signs Temp 36.8 C 05/07/19 02:32 Pulse 72 05/07/19 02:32 Resp 16 05/07/19 02:32 BP 146/83 H 05/07/19 02:32 Pulse Ox 92 L 05/07/19 02:32 Weight - Most Recent: 84.55 kg I&O - Last 24 Hours: Intake & Output 05/06/19 05/07/19 05/07/19 22:59 06:59 14:59 Intake Total 100 500 Output Total 750 900 Balance -650 -400 Lab Results Last 24 Hours: Laboratory Results - last 24 hr 05/06/19 05/06/19 05/06/19 Range/Units 08:07 08:07 08:07 WBC 8.31 (3.98-10.04) K/mm3 RBC 3.36 L (3.98-5.22) M/mm3 Hgb 10.1 L D (11.2-15.7) gm/L Hct 31.5 L (34.1-44.9) % MCV 93.8 D (79.4-94.8) fl MCH 30.1 (25.6-32.2) pg MCHC 32.1 L (32.2-35.5) g/dl RDW Std Deviation 57.1 H (36.4-46.3) fL Plt Count 293 (182-369) K/mm3 MPV 10.3 (9.4-12.3) fl Neut % (Auto) (34.0-71.1) % Lymph % (Auto) (19.3-51.7) % [place] % (Auto) (4.7-12.5) % Eos % (Auto) (0.7-5.8) Baso % (Auto) (0.1-1.2) % Neut # (Auto) (1.56-6.13) K/mm3 Lymph # (Auto) (1.18-3.74) K/mm3 [place] # (Auto) (0.24-0.36) K/mm3 Eos # (Auto) (0.04-0.36) K/mm3 Baso # (Auto) (0.01-0.08) K/mm3 Neutrophils % (Manual) 65 H (40-60) % Band Neutrophils % 0 (0-10) % Lymphocytes % (Manual) 28 (20-40) % Atypical Lymphs % 0 % Monocytes % (Manual) 3 (2-10) % Eosinophils % (Manual) 4 (0.7-5.8) % Basophils % (Manual) 0 L (0.1-1.2) Platelet Estimate Adequate RBC Morph Comment Normal Sodium 147 H (136-145) mEq/L Potassium 3.0 L (3.5-5.1) mEq/L Chloride 109 H (98-107) mEq/L Carbon Dioxide 30 (21-32) mEq/L Anion Gap 11.0 (5-15) BUN 17 (7-18) mg/dL Creatinine 1.2 H (0.55-1.02) mg/dL Est Cr Clr Drug Dosing 25.07 mL/min Estimated GFR (MDRD) 43 (>60) mL/min BUN/Creatinine Ratio 14.2 (14-18) Glucose 94 (83-115) mg/dL Lactic Acid 0.6 (0.4-2.0) mmol/L Calcium 8.6 (8.5-10.1) mg/dL Magnesium 2.1 (1.8-2.4) mg/dl Total Bilirubin 0.4 (0.2-1.0) mg/dL AST 23 (15-37) U/L ALT 15 (14-59) U/L Alkaline Phosphatase 71 (46-116) U/L Troponin I < 0.017 (0.00-0.056) ng/mL NT-Pro-B Natriuret Pep (0-450) pg/mL Total Protein 7.0 (6.4-8.2) g/dl Albumin 2.6 L (3.4-5.0) g/dl Globulin 4.4 gm/dL Albumin/Globulin Ratio 0.6 L (1-2) Urine Color (Yellow) Urine Appearance (Clear) Urine pH (5.0-8.0) Ur Specific [place] (1.005-1.030) Urine Protein (Negative) Urine Glucose (UA) (Negative) Urine Ketones (Negative) Urine Occult Blood (Negative) Urine Nitrite (Negative) Urine Bilirubin (Negative) Urine Urobilinogen (0.2-1.0) Ur Leukocyte Esterase (Negative) Urine RBC (0-5) /hpf Urine WBC (0-5) /hpf Ur Squamous Epith Cells (0-5) /hpf Urine Bacteria (FEW) /hpf Urine Mucus (FEW) /hpf MRSA (PCR) 05/06/19 05/06/19 05/06/19 Range/Units 08:07 09:20 14:30 WBC (3.98-10.04) K/mm3 RBC (3.98-5.22) M/mm3 Hgb (11.2-15.7) gm/L Hct (34.1-44.9) % MCV (79.4-94.8) fl MCH (25.6-32.2) pg MCHC (32.2-35.5) g/dl RDW Std Deviation (36.4-46.3) fL Plt Count (182-369) K/mm3 MPV (9.4-12.3) fl Neut % (Auto) (34.0-71.1) % Lymph % (Auto) (19.3-51.7) % [place] % (Auto) (4.7-12.5) % Eos % (Auto) (0.7-5.8) Baso % (Auto) (0.1-1.2) % Neut # (Auto) (1.56-6.13) K/mm3 Lymph # (Auto) (1.18-3.74) K/mm3 [place] # (Auto) (0.24-0.36) K/mm3 Eos # (Auto) (0.04-0.36) K/mm3 Baso # (Auto) (0.01-0.08) K/mm3 Neutrophils % (Manual) (40-60) % Band Neutrophils % (0-10) % Lymphocytes % (Manual) (20-40) % Atypical Lymphs % % Monocytes % (Manual) (2-10) % Eosinophils % (Manual) (0.7-5.8) % Basophils % (Manual) (0.1-1.2) Platelet Estimate RBC Morph Comment Sodium (136-145) mEq/L Potassium (3.5-5.1) mEq/L Chloride (98-107) mEq/L Carbon Dioxide (21-32) mEq/L Anion Gap (5-15) BUN (7-18) mg/dL Creatinine (0.55-1.02) mg/dL Est Cr Clr Drug Dosing mL/min Estimated GFR (MDRD) (>60) mL/min BUN/Creatinine Ratio (14-18) Glucose (83-115) mg/dL Lactic Acid (0.4-2.0) mmol/L Calcium (8.5-10.1) mg/dL Magnesium (1.8-2.4) mg/dl Total Bilirubin (0.2-1.0) mg/dL AST (15-37) U/L ALT (14-59) U/L Alkaline Phosphatase (46-116) U/L Troponin I (0.00-0.056) ng/mL NT-Pro-B Natriuret Pep 2744 H (0-450) pg/mL Total Protein (6.4-8.2) g/dl Albumin (3.4-5.0) g/dl Globulin gm/dL Albumin/Globulin Ratio (1-2) Urine Color Yellow (Yellow) Urine Appearance Clear (Clear) Urine pH 7.0 (5.0-8.0) Ur Specific [place] 1.020 (1.005-1.030) Urine Protein 2+ H (Negative) Urine Glucose (UA) Negative (Negative) Urine Ketones Negative (Negative) Urine Occult Blood Trace-intact H (Negative) Urine Nitrite Negative (Negative) Urine Bilirubin Negative (Negative) Urine Urobilinogen 0.2 (0.2-1.0) Ur Leukocyte Esterase 1+ H (Negative) Urine RBC 0-5 (0-5) /hpf Urine WBC 10-20 H (0-5) /hpf Ur Squamous Epith Cells Not seen (0-5) /hpf Urine Bacteria Moderate H (FEW) /hpf Urine Mucus Few (FEW) /hpf MRSA (PCR) Negative 05/07/19 05/07/19 Range/Units 05:17 05:17 WBC 7.48 (3.98-10.04) K/mm3 RBC 3.51 L (3.98-5.22) M/mm3 Hgb 10.4 L (11.2-15.7) gm/L Hct 32.8 L (34.1-44.9) % MCV 93.4 (79.4-94.8) fl MCH 29.6 (25.6-32.2) pg MCHC 31.7 L (32.2-35.5) g/dl RDW Std Deviation 56.6 H (36.4-46.3) fL Plt Count 312 (182-369) K/mm3 MPV 10.5 (9.4-12.3) fl Neut % (Auto) 54.8 (34.0-71.1) % Lymph % (Auto) 28.1 (19.3-51.7) % [place] % (Auto) 10.2 (4.7-12.5) % Eos % (Auto) 5.9 H (0.7-5.8) Baso % (Auto) 0.7 (0.1-1.2) % Neut # (Auto) 4.11 (1.56-6.13) K/mm3 Lymph # (Auto) 2.10 (1.18-3.74) K/mm3 [place] # (Auto) 0.76 H (0.24-0.36) K/mm3 Eos # (Auto) 0.44 H (0.04-0.36) K/mm3 Baso # (Auto) 0.05 (0.01-0.08) K/mm3 Neutrophils % (Manual) (40-60) % Band Neutrophils % (0-10) % Lymphocytes % (Manual) (20-40) % Atypical Lymphs % % Monocytes % (Manual) (2-10) % Eosinophils % (Manual) (0.7-5.8) % Basophils % (Manual) (0.1-1.2) Platelet Estimate RBC Morph Comment Sodium 143 (136-145) mEq/L Potassium 3.3 L (3.5-5.1) mEq/L Chloride 105 (98-107) mEq/L Carbon Dioxide 28 (21-32) mEq/L Anion Gap 13.3 (5-15) BUN 16 (7-18) mg/dL Creatinine 1.1 H (0.55-1.02) mg/dL Est Cr Clr Drug Dosing 27.35 mL/min Estimated GFR (MDRD) 47 (>60) mL/min BUN/Creatinine Ratio 14.5 (14-18) Glucose 73 L (83-115) mg/dL Lactic Acid (0.4-2.0) mmol/L Calcium 9.0 (8.5-10.1) mg/dL Magnesium 1.9 (1.8-2.4) mg/dl Total Bilirubin (0.2-1.0) mg/dL AST (15-37) U/L ALT (14-59) U/L Alkaline Phosphatase (46-116) U/L Troponin I (0.00-0.056) ng/mL NT-Pro-B Natriuret Pep (0-450) pg/mL Total Protein (6.4-8.2) g/dl Albumin (3.4-5.0) g/dl Globulin gm/dL Albumin/Globulin Ratio (1-2) Urine Color (Yellow) Urine Appearance (Clear) Urine pH (5.0-8.0) Ur Specific [place] (1.005-1.030) Urine Protein (Negative) Urine Glucose (UA) (Negative) Urine Ketones (Negative) Urine Occult Blood (Negative) Urine Nitrite (Negative) Urine Bilirubin (Negative) Urine Urobilinogen (0.2-1.0) Ur Leukocyte Esterase (Negative) Urine RBC (0-5) /hpf Urine WBC (0-5) /hpf Ur Squamous Epith Cells (0-5) /hpf Urine Bacteria (FEW) /hpf Urine Mucus (FEW) /hpf MRSA (PCR) Med Orders - Current: Current Medications Acetaminophen (Tylenol) 650 mg PO BID PRN PRN Reason: pain Acetaminophen (Tylenol) 650 mg PO TID [facility] Last Admin: 05/06/19 20:54 Dose: 650 mg Hydrocodone Bitart/Acetaminophen ([place] 325-5 Mg) 1 tab PO Q4H PRN PRN Reason: Pain (moderate 4-6) Albuterol/Ipratropium (Duoneb 3.0-0.5 Mg/3 Ml) 3 ml NEB Q4H PRN PRN Reason: Shortness Of Breath/wheezing Amlodipine Besylate (Norvasc) 10 mg PO DAILY [facility] Bisacodyl (Dulcolax) 5 mg PO DAILY PRN PRN Reason: Constipation Citalopram Hydrobromide (Celexa) 10 mg PO DAILY [facility] Dicyclomine HCl (Bentyl) 10 mg PO BID [facility] Last Admin: 05/06/19 20:55 Dose: 10 mg Docusate Sodium (Colace) 100 mg PO BID PRN PRN Reason: Constipation Furosemide (Lasix) 20 mg PO BID [facility] Last Admin: 05/06/19 20:55 Dose: 20 mg Guaifenesin (Mucinex) 600 mg PO BID [facility] Last Admin: 05/06/19 20:54 Dose: 600 mg Promethazine HCl 6.25 mg/ (Sodium Chloride) 50.25 mls @ 100 mls/hr IV Q6H PRN PRN Reason: Nausea/Vomiting Levothyroxine Sodium (Levothyroxine) 75 mcg PO DAILY [facility] Ondansetron HCl (Zofran) 4 mg IV Q6H PRN PRN Reason: Nausea/Vomiting Pantoprazole Sodium (Protonix) 40 mg PO DAILY [facility] Polyethylene Glycol (Miralax) 17 gm PO DAILY PRN PRN Reason: Constipation Senna/Docusate Sodium (Senna Plus) 1 tab PO BID PRN PRN Reason: Constipation Discontinued Medications Acetaminophen (Tylenol) 650 mg PO Q4H PRN PRN Reason: Pain (Mild 1-3)/fever Albuterol/Ipratropium (Duoneb 3.0-0.5 Mg/3 Ml) 3 ml NEB ONETIME ONE Stop: 05/06/19 07:46 Last Admin: 05/06/19 08:04 Dose: 3 ml Furosemide (Lasix) 80 mg IVPUSH NOW ONE Stop: 05/06/19 07:46 Last Admin: 05/06/19 08:03 Dose: 80 mg Potassium Chloride 10 meq/ (Premix) 100 mls @ 100 mls/hr IV ASDIRECTED [facility] Last Admin: 05/06/19 09:44 Dose: 100 mls/hr Potassium Chloride 10 meq/ (Premix) 100 mls @ 100 mls/hr IV Q1H [facility]UY Stop: 05/06/19 15:29 Last Admin: 05/06/19 19:38 Dose: Not Given Levofloxacin/Dextrose 750 mg/ (Premix) 150 mls @ 100 mls/hr IV ONETIME ONE Stop: 05/06/19 12:20 Last Admin: 05/06/19 11:47 Dose: 100 mls/hr Potassium Chloride 10 meq/ (Premix) 100 mls @ 100 mls/hr IV Q1H [facility]UY Stop: 05/06/19 16:29 Last Admin: 05/06/19 19:39 Dose: Not Given Potassium Chloride 10 meq/ (Premix) 100 mls @ 100 mls/hr IV ASDIRECTED [facility] Stop: 05/06/19 15:59 Last Admin: 05/06/19 15:18 Dose: 100 mls/hr Potassium Chloride 10 meq/ (Premix) 100 mls @ 100 mls/hr IV Q1H [facility] Stop: 05/07/19 05:59 Last Admin: 05/07/19 07:38 Dose: 75 mls/hr Magnesium Sulfate 2 gm/ Premix 50 mls @ 25 mls/hr IV NOW STA Stop: 05/07/19 01:50 Last Admin: 05/07/19 07:04 Dose: Not Given Potassium Chloride (Klor-Con M20) 20 meq PO ONETIME ONE Stop: 05/06/19 07:46 Last Admin: 05/06/19 09:29 Dose: Not Given - Exam General: Alert, Oriented, Cooperative HEENT: Pupils Equal, Pupils Reactive, EOMI, Mucous Membr. Moist/[place] Neck: Supple Lungs: Clear to Auscultation, Normal Respiratory Effort Cardiovascular: Regular Rate, Regular Rhythm GI/Abdominal Exam: Normal Bowel Sounds, Soft, Non-Tender, No Organomegaly, No Distention, No Abnormal Bruit, No Mass (Female) Exam: Deferred Back Exam: Normal Inspection, Decreased Range of Motion Extremities: Normal Inspection, Normal Range of Motion, Non-Tender, Normal Capillary Refill, Pedal Edema, Other (significant b/l lower extremity edema) Peripheral Pulses: 2+: Posterior Tibial (L), Posterior Tibial (R), Dorsalis Pedis (L), Dorsalis Pedis (R) Skin: Warm, Dry, Intact Neurological: No New Focal Deficit. No: Normal Gait Psy/Mental Status: Alert, Normal Affect, Normal Mood - Problem List Review Problem List Initiated/Reviewed/Updated: Yes - My Orders Last 24 Hours: My Active Orders 05/06/19 13:23 Acetaminophen [Tylenol] 650 mg PO BID PRN 05/06/19 13:28 Height and Weight [RC] 04 Intake and Output [RC] 04,16 Oxygen Therapy [RC] PRN Up With Assistance [RC] BID VTE/DVT Education [RC] DAILY Vital Signs [RC] Q4HR Acetaminophen/HYDROcodone [[place] 325-5 MG] 1 tab PO Q4H PRN Albuterol/Ipratropium [DuoNeb 3.0-0.5 MG/3 ML] 3 ml NEB Q4H PRN Bisacodyl [Dulcolax] 5 mg PO DAILY PRN Docusate Sodium [Colace] 100 mg PO BID PRN Docusate Sodium/Sennosides [Senna Plus] 1 tab PO BID PRN Ondansetron [Zofran] 4 mg IV Q6H PRN Polyethylene Glycol 3350 [MiraLAX] 17 gm PO DAILY PRN Promethazine [Phenergan] 6.25 mg Sodium Chloride 0.9% [Normal Saline] 50 ml IV Q6H Resuscitation Status Routine 05/06/19 13:29 Antiembolic Devices [RC] BID Pulse Oximetry [RC] PRN Sequential Compression Device [OM.PC] Per Unit Routine 05/06/19 13:30 RT Aerosol Therapy [RC] ASDIRECTED 05/06/19 13:31 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 to 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 [CONS] Routine Consult to Spiritual Care [CONS] Routine OT Evaluation and Treatment [CONS] Routine PT Evaluation and Treatment [CONS] Routine Respiratory Care Assess and Treatment [CONS] Routine CULTURE SPUTUM + SMEAR [RM] Stat 05/06/19 15:00 Acetaminophen [Tylenol] 650 mg PO TID 05/06/19 21:00 Dicyclomine [Bentyl] 10 mg PO BID Furosemide [Lasix] 20 mg PO BID guaiFENesin [Mucinex] 600 mg PO BID 05/06/19 Dinner Heart Healthy Diet [DIET] 05/07/19 07:00 Echo Comp wo Cont [US] Routine 05/07/19 09:00 Citalopram [Celexa] 10 mg PO DAILY Levothyroxine 75 mcg PO DAILY Pantoprazole [ProTONIX] 40 mg PO DAILY amLODIPine [Norvasc] 10 mg PO DAILY 05/08/19 05:11 BASIC METABOLIC PANEL,BMP [CHEM] AM CBC WITH AUTO DIFF [HEME] AM MAGNESIUM [CHEM] AM 05/09/19 05:11 BASIC METABOLIC PANEL,BMP [CHEM] AM CBC WITH AUTO DIFF [HEME] AM MAGNESIUM [CHEM] AM 05/10/19 05:11 BASIC METABOLIC PANEL,BMP [CHEM] AM CBC WITH AUTO DIFF [HEME] AM MAGNESIUM [CHEM] AM 05/11/19 05:11 BASIC METABOLIC PANEL,BMP [CHEM] AM CBC WITH AUTO DIFF [HEME] AM MAGNESIUM [CHEM] AM - Plan Plan:: Assessment: Acute: HF - Carries a hx/o HF with Preserved EF of 65% 11/20/2017 - Has Moderate Aortic Valve Regurgitation - CT scan report read as cardiomegaly with small b/l pleural effusions and slight khris-hilar ground lass appearance due to pulmonary vascular congestion - ProBNP of 2744 - Significant peripheral edema with pleural effusion - Heart failure regime: diuretics, salt/fluid restriction, Is/Os an daily weight - 2D echo completed Right Lower Atelectasis (consolidation noted on imaging study) - Afebrile w/o Leukocytosis - No need for antibiotics - IS as directed and Pulmonary Exercise Small Bilateral Pleura Effusion - 2/2 Heart Failure - IS as directed and Pulmonary Exercise Significant Peripheral Edema - R/o DVT with Duplex U/S - Compression stockings Hypokalemia, Improved - K 3.0--> 3.3 - 2/2 Loop Diuretic Use - Replete and monitor Chronic: Impaired Vision, HTN, HLD, CAD S/p Angioplasty, Aortic Regurgitation, GERD, OA/DJD, CKD Stage 3, Generalized Muscle Weakness, Hypothyroidism, Alzheimer's Dementia, Anxiety and Depression Plan: She is clinically stable Routine AM Labs Monitor electrolytes Fall and Sund[place] Prevention PT/OT to assess and treat DVT/GI Prophylaxis SW/CM for d/c planning Code status: DNR/DNI Additional orders as above Prognosis is good
[2019-05-07] MEDS: Acetaminophen 325 MG Tab PO SCH ×3 (09:35→21:20)
[2019-05-07] MEDS: Furosemide 20 MG Tab PO SCH ×2 (09:35→21:20)
[2019-05-07] MEDS: Citalopram 10 MG Tab PO SCH (09:36)
[2019-05-07] MEDS: amLODIPine 10 MG Tab PO SCH (09:36)
[2019-05-07] MEDS: guaiFENesin 600 MG Tab.ER PO SCH ×2 (09:40→21:21)
[2019-05-07] MEDS: Pantoprazole 40 MG Tab.CR PO SCH (09:40)
[2019-05-07] MEDS: Dicyclomine 10 MG Cap PO SCH ×2 (09:40→21:20)
[2019-05-07] MEDS: Levothyroxine 75 MCG Tab PO SCH (09:40)
[2019-05-07] MEDS ORDERED: Metoprolol Tartrate 5 MG/5 ML SDV IVPUSH PRN (14:34)
[2019-05-07] MEDS ORDERED: Magnesium Sulfate/Water 2 GM in Premix Bag 1 BAG IV ONE (14:43)
[2019-05-07] MEDS ORDERED: Potassium Chloride 20 MEQ Tab.ER PO ONE (15:00)
--- NOTE | 2019-05-07 17:36 | US ---
Bilateral lower extremity deep venous ultrasound: Duplex and color flow imaging was obtained of the right and left common femoral, greater saphenous, superficial femoral, popliteal, posterior tibial and peroneal veins. Findings: Veins below the knee are not optimally seen due to soft tissue edema and swelling within both calves. Other veins show normal phasic flow, augmentation and compression. Impression: 1. Limited visualized of veins below the knee on both sides due to subcutaneous edema and soft tissue swelling. 2. No evidence of deep venous thrombosis is seen from popliteal through common femoral veins on both sides. Diagnostic code #2
[2019-05-07] MEDS: Hydrochlorothiazide 12.5 MG Cap PO SCH (18:05)
[2019-05-08] MEDS: Potassium Chloride 10 MEQ in Premix Bag 1 BAG IV SCH ×2
[2019-05-08] MEDS: Hydrochlorothiazide 12.5 MG Cap PO SCH ×2 (05:25→14:26)
[2019-05-08] MEDS: hydrALAZINE 20 MG/ML SDV IVPUSH PRN (06:05)
--- NOTE | 2019-05-08 07:27 | PCM.PN ---
- General Info Date of Service: 05/08/19 Admission Dx/Problem (Free Text): Admission Diagnosis/Problem Admission Diagnosis/Problem Congestive heart failure Subjective Update: In to see Karen. Her son is at bedside. We discussed goals and the importance of ROM hose with her pedal edema. She is down about 3lbs. She reports she feels much better. She has been refusing to wear her oxygen however her saturations have been at 91%. No other concerns. Functional Status: Reports: Pain Controlled, Tolerating Diet, Ambulating, Urinating, Incentive Spirometry. Denies: New Symptoms - Review of Systems General: Reports: Weakness. Denies: Fever, Fatigue, Malaise, Chills HEENT: Reports: No Symptoms. Denies: Headaches, Sore Throat Pulmonary: Reports: No Symptoms. Denies: Shortness of Breath, Cough, Sputum, Wheezing Cardiovascular: Reports: Edema. Denies: Chest Pain, Palpitations Gastrointestinal: Reports: No Symptoms. Denies: Abdominal Pain, Constipation, Diarrhea, Nausea, Vomiting Genitourinary: Reports: No Symptoms. Denies: Pain Musculoskeletal: Reports: No Symptoms Skin: Reports: No Symptoms. Denies: Cyanosis Neurological: Reports: Confusion (Son reports at or just slightly worse than baseline ), Difficulty Walking, Gait Disturbance. Denies: Trouble Speaking, Change in Speech Psychiatric: Reports: No Symptoms - Patient Data Vitals - Most Recent: Last Vital Signs Temp 97.9 F 05/07/19 21:12 Pulse 80 05/08/19 01:15 Resp 16 05/07/19 15:15 BP 147/64 H 05/08/19 06:34 Pulse Ox 92 L 05/08/19 01:15 Weight - Most Recent: 185 lb 4.8 oz I&O - Last 24 Hours: Intake & Output 05/07/19 05/08/19 05/08/19 22:59 06:59 14:59 Intake Total 1060 600 Balance 1060 600 Lab Results Last 24 Hours: Laboratory Results - last 24 hr 05/07/19 05/08/19 05/08/19 Range/Units 05:17 05:42 05:42 WBC 7.09 (3.98-10.04) K/mm3 RBC 3.41 L (3.98-5.22) M/mm3 Hgb 10.2 L (11.2-15.7) gm/L Hct 31.7 L (34.1-44.9) % MCV 93.0 (79.4-94.8) fl MCH 29.9 (25.6-32.2) pg MCHC 32.2 (32.2-35.5) g/dl RDW Std Deviation 55.1 H (36.4-46.3) fL Plt Count 303 (182-369) K/mm3 MPV 10.4 (9.4-12.3) fl Neut % (Auto) 56.1 (34.0-71.1) % Lymph % (Auto) 27.2 (19.3-51.7) % [place] % (Auto) 10.4 (4.7-12.5) % Eos % (Auto) 5.4 (0.7-5.8) Baso % (Auto) 0.6 (0.1-1.2) % Neut # (Auto) 3.98 (1.56-6.13) K/mm3 Lymph # (Auto) 1.93 (1.18-3.74) K/mm3 [place] # (Auto) 0.74 H (0.24-0.36) K/mm3 Eos # (Auto) 0.38 H (0.04-0.36) K/mm3 Baso # (Auto) 0.04 (0.01-0.08) K/mm3 Sodium 143 140 (136-145) mEq/L Potassium 3.3 L 3.9 (3.5-5.1) mEq/L Chloride 105 104 (98-107) mEq/L Carbon Dioxide 28 29 (21-32) mEq/L Anion Gap 13.3 10.9 (5-15) BUN 16 17 (7-18) mg/dL Creatinine 1.1 H 1.2 H (0.55-1.02) mg/dL Est Cr Clr Drug Dosing 27.35 25.07 mL/min Estimated GFR (MDRD) 47 43 (>60) mL/min BUN/Creatinine Ratio 14.5 14.2 (14-18) Glucose 73 L 79 L (83-115) mg/dL Calcium 9.0 9.0 (8.5-10.1) mg/dL Magnesium 1.9 2.3 (1.8-2.4) mg/dl Gerardo Results Last 24 Hours: Microbiology 05/06/19 11:43 Aerobic Blood Culture - Preliminary Blood - Venous - Lab Draw NO GROWTH AFTER 1 DAY Anaerobic Blood Culture - Preliminary NO GROWTH AFTER 1 DAY 05/06/19 11:22 Aerobic Blood Culture - Preliminary Blood - Venous NO GROWTH AFTER 1 DAY Anaerobic Blood Culture - Preliminary NO GROWTH AFTER 1 DAY Med Orders - Current: Current Medications Acetaminophen (Tylenol) 650 mg PO BID PRN PRN Reason: pain Acetaminophen (Tylenol) 650 mg PO TID [facility] Last Admin: 05/07/19 21:20 Dose: 650 mg Hydrocodone Bitart/Acetaminophen ([place] 325-5 Mg) 1 tab PO Q4H PRN PRN Reason: Pain (moderate 4-6) Albuterol/Ipratropium (Duoneb 3.0-0.5 Mg/3 Ml) 3 ml NEB Q4H PRN PRN Reason: Shortness Of Breath/wheezing Last Admin: 05/07/19 17:33 Dose: 3 ml Amlodipine Besylate (Norvasc) 10 mg PO DAILY [facility] Last Admin: 05/07/19 09:36 Dose: 10 mg Bisacodyl (Dulcolax) 5 mg PO DAILY PRN PRN Reason: Constipation Last Admin: 05/08/19 05:25 Dose: 5 mg Citalopram Hydrobromide (Celexa) 10 mg PO DAILY [facility] Last Admin: 05/07/19 09:36 Dose: 10 mg Dicyclomine HCl (Bentyl) 10 mg PO BID [facility] Last Admin: 05/07/19 21:20 Dose: 10 mg Docusate Sodium (Colace) 100 mg PO BID PRN PRN Reason: Constipation Furosemide (Lasix) 20 mg PO BID [facility] Last Admin: 05/07/19 21:20 Dose: 20 mg Guaifenesin (Mucinex) 600 mg PO BID [facility] Last Admin: 05/07/19 21:21 Dose: 600 mg Hydralazine HCl (Apresoline) 20 mg IVPUSH Q4H PRN PRN Reason: Hypertension Last Admin: 05/08/19 06:05 Dose: 20 mg Hydrochlorothiazide (Hydrochlorothiazide) 12.5 mg PO BIDDIURETIC [facility] Last Admin: 05/08/19 05:25 Dose: 12.5 mg Promethazine HCl 6.25 mg/ (Sodium Chloride) 50.25 mls @ 100 mls/hr IV Q6H PRN PRN Reason: Nausea/Vomiting Levothyroxine Sodium (Levothyroxine) 75 mcg PO DAILY [facility] Last Admin: 05/07/19 09:40 Dose: 75 mcg Metoprolol Tartrate (Lopressor) 5 mg IVPUSH Q4H PRN PRN Reason: Tachycardia Ondansetron HCl (Zofran) 4 mg IV Q6H PRN PRN Reason: Nausea/Vomiting Pantoprazole Sodium (Protonix) 40 mg PO DAILY [facility] Last Admin: 05/07/19 09:40 Dose: 40 mg Polyethylene Glycol (Miralax) 17 gm PO DAILY PRN PRN Reason: Constipation Senna/Docusate Sodium (Senna Plus) 1 tab PO BID PRN PRN Reason: Constipation Discontinued Medications Acetaminophen (Tylenol) 650 mg PO Q4H PRN PRN Reason: Pain (Mild 1-3)/fever Albuterol/Ipratropium (Duoneb 3.0-0.5 Mg/3 Ml) 3 ml NEB ONETIME ONE Stop: 05/06/19 07:46 Last Admin: 05/06/19 08:04 Dose: 3 ml Furosemide (Lasix) 80 mg IVPUSH NOW ONE Stop: 05/06/19 07:46 Last Admin: 05/06/19 08:03 Dose: 80 mg Potassium Chloride 10 meq/ (Premix) 100 mls @ 100 mls/hr IV ASDIRECTED [facility] Last Admin: 05/06/19 09:44 Dose: 100 mls/hr Potassium Chloride 10 meq/ (Premix) 100 mls @ 100 mls/hr IV Q1H [facility] Stop: 05/06/19 15:29 Last Admin: 05/06/19 19:38 Dose: Not Given Levofloxacin/Dextrose 750 mg/ (Premix) 150 mls @ 100 mls/hr IV ONETIME ONE Stop: 05/06/19 12:20 Last Admin: 05/06/19 11:47 Dose: 100 mls/hr Potassium Chloride 10 meq/ (Premix) 100 mls @ 100 mls/hr IV Q1H [facility] Stop: 05/06/19 16:29 Last Admin: 05/06/19 19:39 Dose: Not Given Potassium Chloride 10 meq/ (Premix) 100 mls @ 100 mls/hr IV ASDIRECTED [facility] Stop: 05/06/19 15:59 Last Admin: 05/06/19 15:18 Dose: 100 mls/hr Potassium Chloride 10 meq/ (Premix) 100 mls @ 100 mls/hr IV Q1H [facility] Stop: 05/07/19 05:59 Last Admin: 05/07/19 09:45 Dose: 75 mls/hr Magnesium Sulfate 2 gm/ Premix 50 mls @ 25 mls/hr IV NOW [facility] Stop: 05/07/19 01:50 Last Admin: 05/07/19 07:04 Dose: Not Given Potassium Chloride 10 meq/ (Premix) 100 mls @ 100 mls/hr IV Q1H [facility] Stop: 05/07/19 18:44 Last Admin: 05/07/19 17:59 Dose: Not Given Magnesium Sulfate 2 gm/ Premix 50 mls @ 25 mls/hr IV ONETIME ONE Stop: 05/07/19 16:42 Last Admin: 05/07/19 15:48 Dose: 25 mls/hr Potassium Chloride 10 meq/ (Premix) 100 mls @ 100 mls/hr IV Q1H [facility] Stop: 05/07/19 22:29 Last Admin: 05/08/19 00:00 Dose: 100 mls/hr Potassium Chloride (Klor-Con M20) 20 meq PO ONETIME ONE Stop: 05/06/19 07:46 Last Admin: 05/06/19 09:29 Dose: Not Given Potassium Chloride (Klor-Con M20) 60 meq PO ONETIME ONE Stop: 05/07/19 15:01 Last Admin: 05/07/19 15:54 Dose: 60 meq - Exam Quality Assessment: DVT Prophylaxis. No: Supplemental Oxygen (Patient refusing to wear ) General: Alert, Cooperative, No Acute Distress HEENT: Pupils Equal, Pupils Reactive, EOMI, Mucous Membr. Moist/[place] Neck: Supple, Trachea Midline Lungs: Normal Respiratory Effort, Decreased Breath Sounds Cardiovascular: Regular Rate, Regular Rhythm GI/Abdominal Exam: Normal Bowel Sounds, Soft, Non-Tender, No Organomegaly, No Distention (Female) Exam: Deferred Back Exam: Normal Inspection, Full Range of Motion Extremities: Normal Inspection, Normal Range of Motion, Non-Tender, Normal Capillary Refill, Pedal Edema Skin: Warm, Dry, Intact Neurological: No New Focal Deficit Psy/Mental Status: Alert - Problem List & Annotations (1) Congestive heart failure (CHF) SNOMED Code(s): 74171630 Code(s): I50.9 - HEART FAILURE, UNSPECIFIED Status: Acute Current Visit: Yes (2) Hypoxia SNOMED Code(s): 319548120 Code(s): R09.02 - HYPOXEMIA Status: Acute Current Visit: Yes (3) Hypokalemia SNOMED Code(s): 04046638 Code(s): E87.6 - HYPOKALEMIA Status: Resolved Priority: High Current Visit: Yes (4) Peripheral edema SNOMED Code(s): 485074056 Code(s): R60.9 - EDEMA, UNSPECIFIED Status: Acute Priority: High Current Visit: Yes (5) Atelectasis SNOMED Code(s): 32152147 Code(s): J98.11 - ATELECTASIS Status: Acute Priority: High Current Visit: Yes (6) Pleural effusion SNOMED Code(s): 20158461 Code(s): J90 - PLEURAL EFFUSION, NOT ELSEWHERE CLASSIFIED Status: Acute Priority: High Current Visit: Yes - Problem List Review Problem List Initiated/Reviewed/Updated: Yes - Plan Plan:: Assessment: Acute: HF - Carries a hx/o HF with Preserved EF of 65% 11/20/2017 - Has Moderate Aortic Valve Regurgitation - CT scan report read as cardiomegaly with small b/l pleural effusions and slight khris-hilar ground lass appearance due to pulmonary vascular congestion - ProBNP of 2744 - Significant peripheral edema with pleural effusion - Heart failure regime: diuretics, salt/fluid restriction, Is/Os an daily weight - 2D echo on 05/07/19 1. LVEF by visual estimation is 50-60% 2. Mild concentric left ventricular hypertrophy 3. Normal right ventricular systolic pressure 4. The aortic valve is not well visualized 5. There is moderate aortic valve sclerosis without stenosis 6. Mild mitral valve regurgitation 7. Mild to moderate aortic valve regurgitation 8. Mild to moderate tricuspid valve regurgitation 9. The right ventricular systolic pressure is mildly elevated at 37.2 mmHg. 10. No regional wall motion abnormalities Right Lower Atelectasis (consolidation noted on imaging study) - Afebrile w/o Leukocytosis - No need for antibiotics - IS as directed and Pulmonary Exercise Small Bilateral Pleura Effusion - 2/2 Heart Failure - IS as directed and Pulmonary Exercise Significant Peripheral Edema - R/o DVT with Duplex U/S -> negative - Compression stockings - Elevation S/P Hypokalemia - K 3.0--> 3.3-->3.9 - 2/2 Loop Diuretic Use - Replete and monitor Chronic: Impaired Vision, HTN, HLD, CAD S/p Angioplasty, Aortic Regurgitation, GERD, OA/DJD, CKD Stage 3, Generalized Muscle Weakness, Hypothyroidism, Alzheimer's Dementia, Anxiety and Depression Plan: She is clinically stable Routine AM Labs Monitor electrolytes Fall and Prevention PT/OT to assess and treat DVT/GI Prophylaxis SW/CM for d/c planning Code status: DNR/DNI Additional orders as above Prognosis is good
[2019-05-08] MEDS: guaiFENesin 600 MG Tab.ER PO SCH ×2 (07:59→20:51)
[2019-05-08] MEDS: amLODIPine 10 MG Tab PO SCH (07:59)
[2019-05-08] MEDS: Pantoprazole 40 MG Tab.CR PO SCH (08:00)
[2019-05-08] MEDS: Furosemide 20 MG Tab PO SCH ×2 (08:00→20:51)
[2019-05-08] MEDS: Dicyclomine 10 MG Cap PO SCH ×2 (08:00→20:51)
[2019-05-08] MEDS: Acetaminophen 325 MG Tab PO SCH ×3 (08:00→20:51)
[2019-05-08] MEDS: Citalopram 10 MG Tab PO SCH (08:00)
[2019-05-08] MEDS: Levothyroxine 75 MCG Tab PO SCH (08:02)
[2019-05-09] MEDS: hydrALAZINE 20 MG/ML SDV IVPUSH PRN (03:18)
[2019-05-09] MEDS: Hydrochlorothiazide 12.5 MG Cap PO SCH ×2 (06:13→16:11)
--- NOTE | 2019-05-09 06:45 | PCM.PN ---
- General Info Date of Service: 05/09/19 Admission Dx/Problem (Free Text): Admission Diagnosis/Problem Admission Diagnosis/Problem Congestive heart failure Subjective Update: In to see Karen. Her son is at bedside and reports she was up quite late last night and was talking about a wedding. Her son said she was quite confused. She was sleeping and nursing did wake her up. She has no complaints. Her legs have improved and her BNP looks better. Will continue current treatment. Hopeful for discharge tomorrow. Functional Status: Reports: Pain Controlled, Tolerating Diet, Urinating, Incentive Spirometry. Denies: New Symptoms - Review of Systems General: Reports: No Symptoms, Weakness (improved ). Denies: Fever, Fatigue, Malaise, Chills HEENT: Reports: No Symptoms. Denies: Headaches Pulmonary: Reports: No Symptoms. Denies: Shortness of Breath, Cough, Sputum, Wheezing Cardiovascular: Reports: Edema (chronic ). Denies: Chest Pain, Palpitations Gastrointestinal: Reports: No Symptoms. Denies: Abdominal Pain, Constipation, Diarrhea, Nausea, Vomiting Genitourinary: Reports: No Symptoms. Denies: Pain Musculoskeletal: Reports: No Symptoms Skin: Reports: No Symptoms. Denies: Cyanosis Neurological: Reports: No Symptoms. Denies: Confusion Psychiatric: Reports: No Symptoms - Patient Data Vitals - Most Recent: Last Vital Signs Temp 98.1 F 05/09/19 05:58 Pulse 80 05/09/19 05:58 Resp 18 05/09/19 05:58 BP 154/65 H 05/09/19 06:38 Pulse Ox 90 L 05/09/19 05:58 Weight - Most Recent: 178 lb I&O - Last 24 Hours: Intake & Output 05/08/19 05/08/19 05/09/19 14:59 22:59 06:59 Intake Total 120 1000 250 Balance 120 1000 250 Lab Results Last 24 Hours: Laboratory Results - last 24 hr 05/08/19 Range/Units 05:42 Sodium 140 (136-145) mEq/L Potassium 3.9 (3.5-5.1) mEq/L Chloride 104 (98-107) mEq/L Carbon Dioxide 29 (21-32) mEq/L Anion Gap 10.9 (5-15) BUN 17 (7-18) mg/dL Creatinine 1.2 H (0.55-1.02) mg/dL Est Cr Clr Drug Dosing 25.07 mL/min Estimated GFR (MDRD) 43 (>60) mL/min BUN/Creatinine Ratio 14.2 (14-18) Glucose 79 L (83-115) mg/dL Calcium 9.0 (8.5-10.1) mg/dL Magnesium 2.3 (1.8-2.4) mg/dl Gerardo Results Last 24 Hours: Microbiology 05/06/19 11:43 Aerobic Blood Culture - Preliminary Blood - Venous - Lab Draw NO GROWTH AFTER 2 DAYS Anaerobic Blood Culture - Preliminary NO GROWTH AFTER 2 DAYS 05/06/19 11:22 Aerobic Blood Culture - Preliminary Blood - Venous NO GROWTH AFTER 2 DAYS Anaerobic Blood Culture - Preliminary NO GROWTH AFTER 2 DAYS Med Orders - Current: Current Medications Acetaminophen (Tylenol) 650 mg PO BID PRN PRN Reason: pain Acetaminophen (Tylenol) 650 mg PO TID [facility] Last Admin: 05/08/19 20:51 Dose: 650 mg Hydrocodone Bitart/Acetaminophen ([place] 325-5 Mg) 1 tab PO Q4H PRN PRN Reason: Pain (moderate 4-6) Albuterol/Ipratropium (Duoneb 3.0-0.5 Mg/3 Ml) 3 ml NEB Q4H PRN PRN Reason: Shortness Of Breath/wheezing Last Admin: 05/07/19 17:33 Dose: 3 ml Amlodipine Besylate (Norvasc) 10 mg PO DAILY [facility] Last Admin: 05/08/19 07:59 Dose: 10 mg Bisacodyl (Dulcolax) 5 mg PO DAILY PRN PRN Reason: Constipation Last Admin: 05/08/19 05:25 Dose: 5 mg Citalopram Hydrobromide (Celexa) 10 mg PO DAILY [facility] Last Admin: 05/08/19 08:00 Dose: 10 mg Dicyclomine HCl (Bentyl) 10 mg PO BID [facility] Last Admin: 05/08/19 20:51 Dose: 10 mg Docusate Sodium (Colace) 100 mg PO BID PRN PRN Reason: Constipation Furosemide (Lasix) 20 mg PO BID [facility] Last Admin: 05/08/19 20:51 Dose: 20 mg Guaifenesin (Mucinex) 600 mg PO BID [facility] Last Admin: 05/08/19 20:51 Dose: 600 mg Hydralazine HCl (Apresoline) 20 mg IVPUSH Q4H PRN PRN Reason: Hypertension Last Admin: 05/09/19 03:18 Dose: 20 mg Hydrochlorothiazide (Hydrochlorothiazide) 12.5 mg PO BIDDIURETIC [facility] Last Admin: 05/09/19 06:13 Dose: 12.5 mg Promethazine HCl 6.25 mg/ (Sodium Chloride) 50.25 mls @ 100 mls/hr IV Q6H PRN PRN Reason: Nausea/Vomiting Levothyroxine Sodium (Levothyroxine) 75 mcg PO DAILY [facility] Last Admin: 05/08/19 08:02 Dose: 75 mcg Metoprolol Tartrate (Lopressor) 5 mg IVPUSH Q4H PRN PRN Reason: Tachycardia Ondansetron HCl (Zofran) 4 mg IV Q6H PRN PRN Reason: Nausea/Vomiting Pantoprazole Sodium (Protonix) 40 mg PO DAILY [facility] Last Admin: 05/08/19 08:00 Dose: 40 mg Polyethylene Glycol (Miralax) 17 gm PO DAILY PRN PRN Reason: Constipation Senna/Docusate Sodium (Senna Plus) 1 tab PO BID PRN PRN Reason: Constipation Discontinued Medications Acetaminophen (Tylenol) 650 mg PO Q4H PRN PRN Reason: Pain (Mild 1-3)/fever Albuterol/Ipratropium (Duoneb 3.0-0.5 Mg/3 Ml) 3 ml NEB ONETIME ONE Stop: 05/06/19 07:46 Last Admin: 05/06/19 08:04 Dose: 3 ml Furosemide (Lasix) 80 mg IVPUSH NOW ONE Stop: 05/06/19 07:46 Last Admin: 05/06/19 08:03 Dose: 80 mg Potassium Chloride 10 meq/ (Premix) 100 mls @ 100 mls/hr IV ASDIRECTED [facility] Last Admin: 05/06/19 09:44 Dose: 100 mls/hr Potassium Chloride 10 meq/ (Premix) 100 mls @ 100 mls/hr IV Q1H [facility] Stop: 05/06/19 15:29 Last Admin: 05/06/19 19:38 Dose: Not Given Levofloxacin/Dextrose 750 mg/ (Premix) 150 mls @ 100 mls/hr IV ONETIME ONE Stop: 05/06/19 12:20 Last Admin: 05/06/19 11:47 Dose: 100 mls/hr Potassium Chloride 10 meq/ (Premix) 100 mls @ 100 mls/hr IV Q1H [facility] Stop: 05/06/19 16:29 Last Admin: 05/06/19 19:39 Dose: Not Given Potassium Chloride 10 meq/ (Premix) 100 mls @ 100 mls/hr IV ASDIRECTED [facility] Stop: 05/06/19 15:59 Last Admin: 05/06/19 15:18 Dose: 100 mls/hr Potassium Chloride 10 meq/ (Premix) 100 mls @ 100 mls/hr IV Q1H [facility] Stop: 05/07/19 05:59 Last Admin: 05/07/19 09:45 Dose: 75 mls/hr Magnesium Sulfate 2 gm/ Premix 50 mls @ 25 mls/hr IV NOW [facility] Stop: 05/07/19 01:50 Last Admin: 05/07/19 07:04 Dose: Not Given Potassium Chloride 10 meq/ (Premix) 100 mls @ 100 mls/hr IV Q1H [facility] Stop: 05/07/19 18:44 Last Admin: 05/07/19 17:59 Dose: Not Given Magnesium Sulfate 2 gm/ Premix 50 mls @ 25 mls/hr IV ONETIME ONE Stop: 05/07/19 16:42 Last Admin: 05/07/19 15:48 Dose: 25 mls/hr Potassium Chloride 10 meq/ (Premix) 100 mls @ 100 mls/hr IV Q1H [facility] Stop: 05/07/19 22:29 Last Admin: 05/08/19 00:00 Dose: 100 mls/hr Potassium Chloride (Klor-Con M20) 20 meq PO ONETIME ONE Stop: 05/06/19 07:46 Last Admin: 05/06/19 09:29 Dose: Not Given Potassium Chloride (Klor-Con M20) 60 meq PO ONETIME ONE Stop: 05/07/19 15:01 Last Admin: 05/07/19 15:54 Dose: 60 meq - Exam Quality Assessment: DVT Prophylaxis. No: Supplemental Oxygen (Refusing to wear however saturations are at 91%) General: Alert, Cooperative, No Acute Distress. No: Oriented HEENT: Pupils Equal, Pupils Reactive Neck: Supple, Trachea Midline Lungs: Clear to Auscultation, Normal Respiratory Effort Cardiovascular: Regular Rate, Regular Rhythm GI/Abdominal Exam: Normal Bowel Sounds, Soft, Non-Tender, No Distention, No Abnormal Bruit (Female) Exam: Deferred Back Exam: Normal Inspection, Decreased Range of Motion Extremities: Normal Inspection, Normal Range of Motion, Non-Tender, Normal Capillary Refill, Pedal Edema (improved ) Skin: Warm, Dry, Intact Neurological: No New Focal Deficit Psy/Mental Status: Alert, Normal Affect, Normal Mood - Problem List & Annotations (1) Congestive heart failure (CHF) SNOMED Code(s): 27459513 Code(s): I50.9 - HEART FAILURE, UNSPECIFIED Status: Acute Current Visit: Yes (2) Hypoxia SNOMED Code(s): 679869121 Code(s): R09.02 - HYPOXEMIA Status: Acute Current Visit: Yes (3) Hypokalemia SNOMED Code(s): 51432518 Code(s): E87.6 - HYPOKALEMIA Status: Resolved Priority: High Current Visit: Yes (4) Peripheral edema SNOMED Code(s): 046461323 Code(s): R60.9 - EDEMA, UNSPECIFIED Status: Acute Priority: High Current Visit: Yes (5) Atelectasis SNOMED Code(s): 03023818 Code(s): J98.11 - ATELECTASIS Status: Acute Priority: High Current Visit: Yes (6) Pleural effusion SNOMED Code(s): 98382549 Code(s): J90 - PLEURAL EFFUSION, NOT ELSEWHERE CLASSIFIED Status: Acute Priority: High Current Visit: Yes - Problem List Review Problem List Initiated/Reviewed/Updated: Yes - My Orders Last 24 Hours: My Active Orders 05/09/19 05:24 PRO B-TYPE NATRIUR PEPT,BNPPRO [CHEM] Routine - Plan Plan:: Assessment: Acute: HF - Carries a hx/o HF with Preserved EF of 65% 11/20/2017 - Has Moderate Aortic Valve Regurgitation - CT scan report read as cardiomegaly with small b/l pleural effusions and slight khris-hilar ground lass appearance due to pulmonary vascular congestion - ProBNP of 2744-->1841 - Down 10 Lbs - Significant peripheral edema with pleural effusion -> improved - Heart failure regime: diuretics, salt/fluid restriction, Is/Os an daily weight - 2D echo on 05/07/19 1. LVEF by visual estimation is 50-60% 2. Mild concentric left ventricular hypertrophy 3. Normal right ventricular systolic pressure 4. The aortic valve is not well visualized 5. There is moderate aortic valve sclerosis without stenosis 6. Mild mitral valve regurgitation 7. Mild to moderate aortic valve regurgitation 8. Mild to moderate tricuspid valve regurgitation 9. The right ventricular systolic pressure is mildly elevated at 37.2 mmHg. 10. No regional wall motion abnormalities Right Lower Atelectasis (consolidation noted on imaging study) - Afebrile w/o Leukocytosis - No need for antibiotics - IS as directed and Pulmonary Exercise Small Bilateral Pleura Effusion - 2/2 Heart Failure - IS as directed and Pulmonary Exercise Significant Peripheral Edema - R/o DVT with Duplex U/S -> negative - Compression stockings - Elevation S/P Hypokalemia - K 3.0--> 3.3-->3.9 - 2/2 Loop Diuretic Use - Replete and monitor Chronic: Impaired Vision, HTN, HLD, CAD S/p Angioplasty, Aortic Regurgitation, GERD, OA/DJD, CKD Stage 3, Generalized Muscle Weakness, Hypothyroidism, Alzheimer's Dementia, Anxiety and Depression Plan: She is clinically stable Routine AM Labs Monitor electrolytes Fall and [place] Prevention PT/OT to assess and treat DVT/GI Prophylaxis SW/CM for d/c planning Code status: DNR/DNI Additional orders as above Prognosis is good Hopeful for discharge tomorrow
[2019-05-09] MEDS: guaiFENesin 600 MG Tab.ER PO SCH ×2 (09:15→20:05)
[2019-05-09] MEDS: Furosemide 20 MG Tab PO SCH ×2 (09:15→20:06)
[2019-05-09] MEDS: Pantoprazole 40 MG Tab.CR PO SCH (09:15)
[2019-05-09] MEDS: Acetaminophen 325 MG Tab PO SCH ×3 (09:15→20:09)
[2019-05-09] MEDS: amLODIPine 10 MG Tab PO SCH (09:15)
[2019-05-09] MEDS: Levothyroxine 75 MCG Tab PO SCH (09:15)
[2019-05-09] MEDS: Dicyclomine 10 MG Cap PO SCH ×2 (09:15→20:06)
[2019-05-09] MEDS: Citalopram 10 MG Tab PO SCH (09:15)
[2019-05-10] MEDS: Hydrochlorothiazide 12.5 MG Cap PO SCH (06:09)
--- NOTE | 2019-05-10 06:51 | PCM.DCSUM1 ---
Discharge Summary - Hospital Course HPI Initial Comments: This is an 83 yo Elderly female with past medical hx/o Impaired Vision , HTN, HLD, CAD S/p Angioplasty, Aortic Regurgitation, GERD, OA/DJD, CKD Stage 3 , Generalized Muscle Weakness, Hypothyroidism, Alzheimer's Dementia, Anxiety and Depression who comes in from [facility] due to worsening shortness of breath and increased leg edema noticed by her daughter on her a visit to her yesterday at the facility. Her initial work up in ED shows a CBC remarkable for RBC of 3.36, Hgb of 10.1, Hct of 31.5, MCHC of 32.1, RDW of 57.1, and Neutrophils of 65%. Her Chemistry is significant for Na of 147, K of 3, Cl of 109, Cr of 1.2, ProNP of 2744 and albumin of 2.6. Her UA is not quite suggestive of UTI. Her Chest CT scan report read as cardiomegaly with small b/l pleural effusions and slight khris-hilar ground glass appearance due to pulmonary vascular congestion. She is primarily coming in for medical management of acute congestive heart failure. Diagnosis: Stroke: No - Discharge Data Discharge Date: 05/10/19 (Admit date: 05/06/19) Discharge Disposition: DC/Tfer to SNF 03 Condition: Good - Discharge Diagnosis/Problem(s) (1) Congestive heart failure (CHF) SNOMED Code(s): 36806709 ICD Code: I50.9 - HEART FAILURE, UNSPECIFIED Status: Acute Qualifiers: Heart failure type: diastolic (2) Hypoxia SNOMED Code(s): 787432364 ICD Code: R09.02 - HYPOXEMIA Status: Acute (3) Hypokalemia SNOMED Code(s): 71339038 ICD Code: E87.6 - HYPOKALEMIA Status: Acute Priority: High (4) Peripheral edema SNOMED Code(s): 281468475 ICD Code: R60.9 - EDEMA, UNSPECIFIED Status: Acute Priority: High (5) Atelectasis SNOMED Code(s): 56156537 ICD Code: J98.11 - ATELECTASIS Status: Acute Priority: High (6) Pleural effusion SNOMED Code(s): 54495768 ICD Code: J90 - PLEURAL EFFUSION, NOT ELSEWHERE CLASSIFIED Status: Acute Priority: High - Patient Summary/Data Consults: Consultations 05/06/19 13:31 Consult to Case Management/Retail Event And Sales Assistant [CONS] Routine Consult to Spiritual Care [CONS] Routine OT Evaluation and Treatment [CONS] Routine PT Evaluation and Treatment [CONS] Routine Respiratory Care Assess and Treatment [CONS] Routine Labs Pending at D/C: None Recommended Follow-up Testing/Procedures: Follow-up with primary care provider within one week of discharge Hospital Course: Assessment: Acute: HF - Carries a hx/o HF with Preserved EF of 65% 11/20/2017 - Has Moderate Aortic Valve Regurgitation - CT scan report read as cardiomegaly with small b/l pleural effusions and slight khris-hilar ground lass appearance due to pulmonary vascular congestion - ProBNP of 2744-->1841 - Down 12 Lbs - Significant peripheral edema with pleural effusion -> improved - Heart failure regime: diuretics, salt/fluid restriction, Is/Os an daily weight - 2D echo on 05/07/19 1. LVEF by visual estimation is 50-60% 2. Mild concentric left ventricular hypertrophy 3. Normal right ventricular systolic pressure 4. The aortic valve is not well visualized 5. There is moderate aortic valve sclerosis without stenosis 6. Mild mitral valve regurgitation 7. Mild to moderate aortic valve regurgitation 8. Mild to moderate tricuspid valve regurgitation 9. The right ventricular systolic pressure is mildly elevated at 37.2 mmHg. 10. No regional wall motion abnormalities Right Lower Atelectasis (consolidation noted on imaging study) - Afebrile w/o Leukocytosis - No need for antibiotics - IS as directed and Pulmonary Exercise Small Bilateral Pleura Effusion - 2/2 Heart Failure - IS as directed and Pulmonary Exercise Significant Peripheral Edema, improving - R/o DVT with Duplex U/S -> negative - Compression stockings - Elevation Hypokalemia - K 3.0--> 3.3-->3.9-->3.5-->3.3 - 2/2 Loop Diuretic Use - Replete and monitor Chronic: Impaired Vision, HTN, HLD, CAD S/p Angioplasty, Aortic Regurgitation, GERD, OA/DJD, CKD Stage 3, Generalized Muscle Weakness, Hypothyroidism, Alzheimer's Dementia, Anxiety and Depression Plan: She is clinically stable Routine AM Labs Monitor electrolytes Fall and Sundowning Prevention PT/OT to assess and treat DVT/GI Prophylaxis SW/CM for d/c planning Code status: DNR/DNI Additional orders as above Prognosis is good Karen was admitted for management of her acute heart failure and significant pedal edema. She is placed on a fluid and salt restriction and given diuretics. Her home Lasix was continued however she was started on twice a day hydrochlorothiazide and responded very well to this. she lost nearly 12 pounds. She was requiring oxygen on admission however she was noncompliant with this. Saturations remained in the low 90s without oxygen. She remained pleasantly confused. Her son was at bedside during most of the stay and did report several episodes of her talking nonsense. He said this is her baseline. She does primarily speaks American. Her son reports that she was bilingual in American and Faroese however with her worsening dementia she did revert back to only American-speaking. She would occasionally has short conversations and Faroese however. She is noted to have significant pedal edema and a duplex ultrasound was obtained to ensure there is no DVT. This was negative. she did wear compression stockings for the most part however she did state these were not comfortable and was occasionally noncompliant. She did utilize an IS due to atelectasis noted on imaging. Potassium was low and was supplemented. Echo was obtained and as noted above. Her proBNP did improve. She was instructed to continue using compression stockings and resume her home medications. She was told to take 2 tabs of Lasix for sudden shortness of breath or increased edema. She was also instructed to continue using salt and 2L fluid restrictions. She should continue using her incentive spirometer for 1 week or until symptoms improve. She should follow-up with her primary care provider within one week. We recommend rechecking a BMP and magnesium at that time. She was prescribed 20 mEq 2 tabs by mouth potassium on Monday, Monday, Monday as a new home med. She was discharged back to [facility] today. - Patient Instructions Diet: Heart Healthy Diet, Low Sodium, Fluid Restriction Fluid Restriction: 2000 mL Activity: As Tolerated Driving: Do Not Drive Notify Provider of: Fever, Increased Pain, Swelling and Redness, Nausea and/or Vomiting Other/Special Instructions: - Please resume routine home medications and activity as tolerated. - Tabe 2 tabs of lasix for sudden shortness of beath or increased edema. - Recommend compression stockings use daily. - Follow daily salt and fluid restrictions. - Used Incentive Spirometry as directed for 1 week. - Follow up in 1 week with repeat labs (BMP and Mg) through your family doctor's office. - Come back or seek immediate care should your symptoms persist or get worse - Discharge Plan *PRESCRIPTION DRUG MONITORING PROGRAM REVIEWED*: No *COPY OF PRESCRIPTION DRUG MONITORING REPORT IN PATIENT KAREN: No Prescriptions/Med Rec: Potassium Chloride [Klor-Con M20] 20 meq PO ASDIRECTED #60 tab.er Home Medications: Home Meds Citalopram [Citalopram HBr] 10 mg PO DAILY 11/19/17 [History] Dicyclomine [Bentyl] 10 mg PO BID 11/19/17 [History] Omeprazole 20 mg PO DAILY 11/19/17 [History] amLODIPine [Norvasc] 10 mg PO DAILY 07/03/18 [History] Acetaminophen [Tylenol] 650 mg PO BID PRN 07/12/18 [History] Acetaminophen 650 mg PO TID 07/30/18 [History] Dicyclomine [Bentyl] 10 mg PO BID PRN 07/30/18 [History] Levothyroxine [Synthroid] 75 mcg PO DAILY 04/20/19 [History] guaiFENesin [Mucinex] 600 mg PO BID 04/20/19 [History] Furosemide [Lasix] 20 mg PO ASDIRECTED #90 05/10/19 [Rx] Potassium Chloride [Klor-Con M20] 20 meq PO ASDIRECTED #60 tab.er 05/10/19 [Rx] Oxygen Therapy Mode: Room Air Patient Handouts: Hypokalemia, Atelectasis, Adult, Pleural Effusion, Heart Failure, [id number], Peripheral Edema Referrals: Jayme Marion MD [Primary Care Provider] - 05/17/19 4:30 pm - Discharge Summary/Plan Comment DC Time >30 min.: Yes (45 mins ) - General Info Date of Service: 05/10/19 Admission Dx/Problem (Free Text: Admission Diagnosis/Problem Admission Diagnosis/Problem Congestive heart failure Functional Status: Reports: Pain Controlled, Tolerating Diet, Ambulating, Urinating, Incentive Spirometry. Denies: New Symptoms - Review of Systems General: Reports: Weakness (improving ). Denies: Fever, Fatigue, Malaise, Chills HEENT: Reports: No Symptoms. Denies: Headaches, Sore Throat Pulmonary: Reports: No Symptoms. Denies: Shortness of Breath, Pleuritic Chest Pain, Cough, Sputum, Wheezing Cardiovascular: Reports: Edema (chronic ). Denies: Chest Pain, Palpitations, Dyspnea on Exertion Gastrointestinal: Reports: No Symptoms. Denies: Abdominal Pain, Constipation, Diarrhea, Nausea, Vomiting Genitourinary: Reports: No Symptoms. Denies: Pain Musculoskeletal: Reports: No Symptoms Skin: Reports: No Symptoms. Denies: Cyanosis Neurological: Reports: Confusion (baseline ), Pre-Existing Deficit, Difficulty Walking, Weakness, Gait Disturbance Psychiatric: Reports: No Symptoms - Patient Data Vitals - Most Recent: Last Vital Signs Temp 98.2 F 05/10/19 05:57 Pulse 83 05/10/19 05:57 Resp 18 05/10/19 05:57 BP 114/60 05/10/19 05:57 Pulse Ox 90 L 05/10/19 05:57 Weight - Most Recent: 176 lb 12.8 oz I&O - Last 24 hours: Intake & Output 05/09/19 05/09/19 05/10/19 14:59 22:59 06:59 Intake Total 100 100 Output Total 500 Balance -400 100 Lab Results - Last 24 hrs: Laboratory Results - last 24 hr 05/09/19 05/09/19 05/10/19 Range/Units 05:24 05:24 05:30 WBC 8.21 6.34 (3.98-10.04) K/mm3 RBC 3.65 L 3.47 L (3.98-5.22) M/mm3 Hgb 10.9 L 10.6 L (11.2-15.7) gm/L Hct 33.5 L 31.9 L (34.1-44.9) % MCV 91.8 91.9 (79.4-94.8) fl MCH 29.9 30.5 (25.6-32.2) pg MCHC 32.5 33.2 (32.2-35.5) g/dl RDW Std Deviation 54.4 H 54.5 H (36.4-46.3) fL Plt Count 297 297 (182-369) K/mm3 MPV 11.0 10.6 (9.4-12.3) fl Neut % (Auto) 50.3 45.9 (34.0-71.1) % Lymph % (Auto) 31.8 37.7 (19.3-51.7) % [place] % (Auto) 11.0 9.8 (4.7-12.5) % Eos % (Auto) 5.0 5.8 (0.7-5.8) Baso % (Auto) 1.0 0.8 (0.1-1.2) % Neut # (Auto) 4.14 2.91 (1.56-6.13) K/mm3 Lymph # (Auto) 2.61 2.39 (1.18-3.74) K/mm3 [place] # (Auto) 0.90 H 0.62 H (0.24-0.36) K/mm3 Eos # (Auto) 0.41 H 0.37 H (0.04-0.36) K/mm3 Baso # (Auto) 0.08 0.05 (0.01-0.08) K/mm3 Manual Slide Review Normal smear NT-Pro-B Natriuret Pep 1841 H (0-450) pg/mL KAILEE Results - Last 24 hrs: Microbiology 05/06/19 11:43 Aerobic Blood Culture - Preliminary Blood - Venous - Lab Draw NO GROWTH AFTER 3 DAYS Anaerobic Blood Culture - Preliminary NO GROWTH AFTER 3 DAYS 05/06/19 11:22 Aerobic Blood Culture - Preliminary Blood - Venous NO GROWTH AFTER 3 DAYS Anaerobic Blood Culture - Preliminary NO GROWTH AFTER 3 DAYS Med Orders - Current: Current Medications Acetaminophen (Tylenol) 650 mg PO BID PRN PRN Reason: pain Acetaminophen (Tylenol) 650 mg PO TID [facility] Last Admin: 05/09/19 20:09 Dose: 650 mg Hydrocodone Bitart/Acetaminophen ([place] 325-5 Mg) 1 tab PO Q4H PRN PRN Reason: Pain (moderate 4-6) Albuterol/Ipratropium (Duoneb 3.0-0.5 Mg/3 Ml) 3 ml NEB Q4H PRN PRN Reason: Shortness Of Breath/wheezing Last Admin: 05/07/19 17:33 Dose: 3 ml Amlodipine Besylate (Norvasc) 10 mg PO DAILY [facility] Last Admin: 05/09/19 09:15 Dose: 10 mg Bisacodyl (Dulcolax) 5 mg PO DAILY PRN PRN Reason: Constipation Last Admin: 05/08/19 05:25 Dose: 5 mg Citalopram Hydrobromide (Celexa) 10 mg PO DAILY [facility] Last Admin: 05/09/19 09:15 Dose: 10 mg Dicyclomine HCl (Bentyl) 10 mg PO BID [facility] Last Admin: 05/09/19 20:06 Dose: 10 mg Docusate Sodium (Colace) 100 mg PO BID PRN PRN Reason: Constipation Furosemide (Lasix) 20 mg PO BID [facility] Last Admin: 05/09/19 20:06 Dose: 20 mg Guaifenesin (Mucinex) 600 mg PO BID [facility] Last Admin: 05/09/19 20:05 Dose: 600 mg Hydralazine HCl (Apresoline) 20 mg IVPUSH Q4H PRN PRN Reason: Hypertension Last Admin: 05/09/19 03:18 Dose: 20 mg Hydrochlorothiazide (Hydrochlorothiazide) 12.5 mg PO BIDDIURETIC [facility] Last Admin: 05/10/19 06:09 Dose: 12.5 mg Promethazine HCl 6.25 mg/ (Sodium Chloride) 50.25 mls @ 100 mls/hr IV Q6H PRN PRN Reason: Nausea/Vomiting Levothyroxine Sodium (Levothyroxine) 75 mcg PO DAILY [facility] Last Admin: 05/09/19 09:15 Dose: 75 mcg Metoprolol Tartrate (Lopressor) 5 mg IVPUSH Q4H PRN PRN Reason: Tachycardia Ondansetron HCl (Zofran) 4 mg IV Q6H PRN PRN Reason: Nausea/Vomiting Pantoprazole Sodium (Protonix) 40 mg PO DAILY [facility] Last Admin: 05/09/19 09:15 Dose: 40 mg Polyethylene Glycol (Miralax) 17 gm PO DAILY PRN PRN Reason: Constipation Senna/Docusate Sodium (Senna Plus) 1 tab PO BID PRN PRN Reason: Constipation Discontinued Medications Acetaminophen (Tylenol) 650 mg PO Q4H PRN PRN Reason: Pain (Mild 1-3)/fever Albuterol/Ipratropium (Duoneb 3.0-0.5 Mg/3 Ml) 3 ml NEB ONETIME ONE Stop: 05/06/19 07:46 Last Admin: 05/06/19 08:04 Dose: 3 ml Furosemide (Lasix) 80 mg IVPUSH NOW ONE Stop: 05/06/19 07:46 Last Admin: 05/06/19 08:03 Dose: 80 mg Potassium Chloride 10 meq/ (Premix) 100 mls @ 100 mls/hr IV ASDIRECTED [facility] Last Admin: 05/06/19 09:44 Dose: 100 mls/hr Potassium Chloride 10 meq/ (Premix) 100 mls @ 100 mls/hr IV Q1H [facility] Stop: 05/06/19 15:29 Last Admin: 05/06/19 19:38 Dose: Not Given Levofloxacin/Dextrose 750 mg/ (Premix) 150 mls @ 100 mls/hr IV ONETIME ONE Stop: 05/06/19 12:20 Last Admin: 05/06/19 11:47 Dose: 100 mls/hr Potassium Chloride 10 meq/ (Premix) 100 mls @ 100 mls/hr IV Q1H [facility] Stop: 05/06/19 16:29 Last Admin: 05/06/19 19:39 Dose: Not Given Potassium Chloride 10 meq/ (Premix) 100 mls @ 100 mls/hr IV ASDIRECTED [facility] Stop: 05/06/19 15:59 Last Admin: 05/06/19 15:18 Dose: 100 mls/hr Potassium Chloride 10 meq/ (Premix) 100 mls @ 100 mls/hr IV Q1H [facility] Stop: 05/07/19 05:59 Last Admin: 05/07/19 09:45 Dose: 75 mls/hr Magnesium Sulfate 2 gm/ Premix 50 mls @ 25 mls/hr IV NOW STA Stop: 05/07/19 01:50 Last Admin: 05/07/19 07:04 Dose: Not Given Potassium Chloride 10 meq/ (Premix) 100 mls @ 100 mls/hr IV Q1H [facility] Stop: 05/07/19 18:44 Last Admin: 05/07/19 17:59 Dose: Not Given Magnesium Sulfate 2 gm/ Premix 50 mls @ 25 mls/hr IV ONETIME ONE Stop: 05/07/19 16:42 Last Admin: 05/07/19 15:48 Dose: 25 mls/hr Potassium Chloride 10 meq/ (Premix) 100 mls @ 100 mls/hr IV Q1H [facility] Stop: 05/07/19 22:29 Last Admin: 05/08/19 00:00 Dose: 100 mls/hr Potassium Chloride (Klor-Con M20) 20 meq PO ONETIME ONE Stop: 05/06/19 07:46 Last Admin: 05/06/19 09:29 Dose: Not Given Potassium Chloride (Klor-Con M20) 60 meq PO ONETIME ONE Stop: 05/07/19 15:01 Last Admin: 05/07/19 15:54 Dose: 60 meq - Exam Quality Assessment: Reports: DVT Prophylaxis General: Reports: Alert, Cooperative, No Acute Distress. Denies: Oriented HEENT: Reports: Pupils Equal, Pupils Reactive, EOMI, Mucous Membr. Moist/[place] Neck: Reports: Supple, Trachea Midline Lungs: Reports: Clear to Auscultation, Normal Respiratory Effort Cardiovascular: Reports: Regular Rate, Regular Rhythm GI/Abdominal Exam: Normal Bowel Sounds, Soft, Non-Tender, No Distention, No Abnormal Bruit (Female) Exam: Deferred Rectal (Female) Exam: Deferred Back Exam: Reports: Normal Inspection, Full Range of Motion, Decreased Range of Motion Extremities: Normal Inspection, Non-Tender, Normal Capillary Refill, Pedal Edema (improved ), Limited Range of Motion Skin: Reports: Warm, Dry, Intact Neurological: Reports: No New Focal Deficit Psy/Mental Status: Reports: Alert
[2019-05-10] MEDS ORDERED: Potassium Chloride 20 MEQ Tab.ER PO ONE (08:30)
[2019-05-10] MEDS: amLODIPine 10 MG Tab PO SCH (08:59)
[2019-05-10] MEDS: guaiFENesin 600 MG Tab.ER PO SCH (08:59)
[2019-05-10] MEDS: Levothyroxine 75 MCG Tab PO SCH (08:59)
[2019-05-10] MEDS: Acetaminophen 325 MG Tab PO SCH (08:59)
[2019-05-10] MEDS: Pantoprazole 40 MG Tab.CR PO SCH (08:59)
[2019-05-10] MEDS: Furosemide 20 MG Tab PO SCH (08:59)
[2019-05-10] MEDS: Dicyclomine 10 MG Cap PO SCH (08:59)
[2019-05-10] MEDS: Citalopram 10 MG Tab PO SCH (09:00)
[2019-05-10 09:08] VITALS: BP 146/45
== END 2019-05-10 11:35 | DRG 291 ==
LOC: JD.ED 07:16 → JD.MS 12:42
PROVIDERS: ADMIT Internal Medicine; ATTEND Internal Medicine
DX: I13.0 Hypertensive heart and chronic kidney disease with heart failure and stage 1 through stage 4 chronic kidney disease, or unspecified chronic kidney disease (principal); J18.9 Pneumonia, unspecified organism; R09.02 Hypoxemia; I50.31 Acute diastolic (congestive) heart failure; J98.11 Atelectasis; E87.6 Hypokalemia; I25.10 Atherosclerotic heart disease of native coronary artery without angina pectoris; K21.9 Gastro-esophageal reflux disease without esophagitis; H35.30 Unspecified macular degeneration; M19.90 Unspecified osteoarthritis, unspecified site; N18.3 Chronic kidney disease, stage 3 (moderate); E03.9 Hypothyroidism, unspecified; G30.9 Alzheimer's disease, unspecified; F02.80 Dementia in other diseases classified elsewhere, unspecified severity, without behavioral disturbance, psychotic disturbance, mood disturbance, and anxiety; F41.9 Anxiety disorder, unspecified; F32.9 Major depressive disorder, single episode, unspecified; E78.00 Pure hypercholesterolemia, unspecified; Z98.61 Coronary angioplasty status; Z96.659 Presence of unspecified artificial knee joint; K58.9 Irritable bowel syndrome, unspecified; Z79.890 Hormone replacement therapy; I35.1 Nonrheumatic aortic (valve) insufficiency; H54.7 Unspecified visual loss; Z95.5 Presence of coronary angioplasty implant and graft; Z79.899 Other long term (current) drug therapy; Z90.49 Acquired absence of other specified parts of digestive tract; Z90.710 Acquired absence of both cervix and uterus
CPT/HCPCS: 36415; 70450; 71045; 71250; 80053; 81001; 83605; 83735; 83880; 84484; 85007; 85027; 87040 ×2; 93005; 94640; 96365; 96366; 96367; 96375; 99285; J1940; J1956; J3480 ×2; 80048; 85025; 87641; 93010; 93306; 93970; 93970-26; 94761; 96376; 97110-GP; 97161-GP; 97165-GO; 97530-GO; 97530-GP; A9270-GY; J0360; J3475; J7620-GY

== ENCOUNTER 2019-07-06 18:22 | Emergency (ER) | payer MEDICARE, MEDICAID ==
[2019-07-06 18:40] VITALS: BP 127/62; PULSE 74
--- NOTE | 2019-07-06 19:32 | EDM.PDOC ---
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 She lives at [facility]. Apparently this evening at dinner she got up from her chair and promptly fell down and hit the back of her head. There was no loss of consciousness. But they sent her to the ER for evaluation. The patient speaks mostly Arabic and understands very little [place] African so an valve lapper was used to get her history. She does have a history of dementia and she is normally not oriented to place or time. She is very pleasant and talking appropriately Arabic such that the valve lapper could understand her appropriately and she seemed to answer questions fairly well. She denies any extremity injury. She denies any back pain. She has some mild soreness in her posterior scalp but she denies any other acute problems. Treatments STEERSMAN: Reports: Other (see below) Other Treatments STEERSMAN: tylenol - Related Data Allergies Allergy/AdvReac Type Severity Reaction Status Date / Time No Known Allergies Allergy Verified 07/06/19 18:43 Home Meds: Home Meds Dicyclomine [Bentyl] 10 mg PO BID 11/19/17 [History] Omeprazole 20 mg PO DAILY 11/19/17 [History] amLODIPine [Norvasc] 10 mg PO DAILY 07/03/18 [History] Acetaminophen [Tylenol] 650 mg PO BID PRN 07/12/18 [History] Acetaminophen 650 mg PO TID 07/30/18 [History] Dicyclomine [Bentyl] 10 mg PO BID PRN 07/30/18 [History] Levothyroxine [Synthroid] 75 mcg PO DAILY 04/20/19 [History] guaiFENesin [Mucinex] 600 mg PO BID 04/20/19 [History] Bisacodyl 10 mg PO DAILY PRN 07/06/19 [History] Citalopram Hydrobromide [Celexa] 10 mg PO DAILY 07/06/19 [History] Furosemide [Lasix] 20 mg PO BID 07/06/19 [History] Losartan [Cozaar] 50 mg PO DAILY 07/06/19 [History] Potassium Chloride [Klor-Con M20] 40 meq PO DAILY 07/06/19 [History] Past Medical History HEENT History: Reports: Impaired Vision, Macular Degeneration Other HEENT History: wears glasses Cardiovascular History: Reports: CAD, High Cholesterol, Hypertension Other Cardiovascular History: angioplasty, atherosclerotic heart disease Respiratory History: Reports: None Gastrointestinal History: Reports: GERD Genitourinary History: Reports: None CARGO SERVICES COORDINATOR History: Reports: Musculoskeletal History: Reports: Osteoarthritis Other Musculoskeletal History: dorsalgia, generalized muscle weakness Neurological History: Reports: Alzheimers Disease Psychiatric History: Reports: Anxiety, Depression Endocrine/Metabolic History: Reports: Hypothyroidism Hematologic History: Reports: None Immunologic History: Reports: None Oncologic (Cancer) History: Reports: None Dermatologic History: Reports: None - Infectious Disease History Infectious Disease History: Reports: None - Past Surgical History Head Surgeries/Procedures: Reports: None HEENT Surgical History: Reports: Cataract Surgery Cardiovascular Surgical History: Reports: Percutaneous Transluminal Angioplasty GI Surgical History: Reports: Cholecystectomy, Colonoscopy Female Surgical History: Reports: Hysterectomy, Salpingo-Oophorectomy Musculoskeletal Surgical History: Reports: Knee Replacement Social & Family History - Family History Family Medical History: Noncontributory - Tobacco Use Smoking Status *Q: Unknown Ever Smoked - Caffeine Use Caffeine Use: Reports: None Other Caffeine Use: two cups in morning - Living Situation & Occupation Living situation: Reports: , Extended Care Facility ([facility]) Occupation: Retired ED ROS GENERAL - Review of Systems Review Of Systems: See Below (Patient has dementia and usually not oriented to place and time.) Neurological: Reports: Dizziness, Other (dementia). Denies: Headache ED EXAM, HEAD INJURY - Physical Exam Exam: See Below Exam Limited By: Language Barrier General Appearance: Alert, WD/WN, No Apparent Distress Head: Normocephalic, Other (mild posterior scalp soreness but no abrasion or swelling) Nexus Criteria: No: Posterior, Midline Cervical Tenderness, Altered Level of Consciousness, Focal Neurological Deficit, Painful Distraction Injuries Eyes: Bilateral Eye: Normal Inspection, Other (Pupils reactive) Ears: Normal External Exam, Normal Canal, Normal TMs, Other (No hemotympanium) Nose: Normal Inspection Throat/Mouth: Normal Lips, Normal Voice, No Airway Compromise Neck: Non-Tender, Full Range of Motion Respiratory: No Respiratory Distress, Lungs Clear, Normal Breath Sounds Cardiovascular: Regular Rate, Rhythm, No Murmur GI/Abdominal Exam: Soft, Non-Tender Back Exam: Decreased Range of Motion Extremities: Normal Inspection, Other (No significant pedal edema noted. Is generally weak but moves all 4 extremities.) Neurologic: Alert Skin: Normal Color, Warm/Dry - [place] Coma Score Best Eye Response ([place]): (4) Open Spontaneously Best Verbal Response ([place]): (5) Oriented Best Motor Response ([place]): (6) Obeys Commands [place] Total: 15 (has dementia but speaks uzbek well) Course - Vital Signs Last Recorded V/S: Last Vital Signs Temp 97.6 F 07/06/19 18:38 Pulse 74 07/06/19 18:38 Resp 17 07/06/19 18:38 BP 127/62 07/06/19 18:38 Pulse Ox 88 L 07/06/19 18:38 - Orders/Labs/Meds Orders: Active Orders 24 hr Category Date Time Status Oxygen Therapy, ED [RC] ASDIRECTED Care 07/06/19 18:30 Active Chest 2V [CR] Stat Exams 07/06/19 19:20 Taken Labs: Laboratory Tests 07/06/19 07/06/19 07/06/19 Range/Units 19:15 19:15 19:15 WBC 7.97 (3.98-10.04) K/mm3 RBC 5.11 (3.98-5.22) M/mm3 Hgb 14.0 D (11.2-15.7) gm/dl Hct 42.7 (34.1-44.9) % MCV 83.6 D (79.4-94.8) fl MCH 27.4 (25.6-32.2) pg MCHC 32.8 (32.2-35.5) g/dl RDW Std Deviation 46.3 (36.4-46.3) fL Plt Count 283 (182-369) K/mm3 MPV 10.5 (9.4-12.3) fl Neut % (Auto) 46.9 (34.0-71.1) % Lymph % (Auto) 41.7 (19.3-51.7) % [place] % (Auto) 7.2 (4.7-12.5) % Eos % (Auto) 3.3 (0.7-5.8) Baso % (Auto) 0.6 (0.1-1.2) % Neut # (Auto) 3.75 (1.56-6.13) K/mm3 Lymph # (Auto) 3.32 (1.18-3.74) K/mm3 [place] # (Auto) 0.57 H (0.24-0.36) K/mm3 Eos # (Auto) 0.26 (0.04-0.36) K/mm3 Baso # (Auto) 0.05 (0.01-0.08) K/mm3 Sodium 141 (136-145) mEq/L Potassium 3.1 L (3.5-5.1) mEq/L Chloride 104 (98-107) mEq/L Carbon Dioxide 26 (21-32) mEq/L Anion Gap 14.1 (5-15) BUN 15 (7-18) mg/dL Creatinine 1.3 H (0.55-1.02) mg/dL Est Cr Clr Drug Dosing 27.32 mL/min Estimated GFR (MDRD) 39 (>60) mL/min BUN/Creatinine Ratio 11.5 L (14-18) Glucose 130 H (83-115) mg/dL Calcium 9.5 (8.5-10.1) mg/dL Total Bilirubin 0.4 (0.2-1.0) mg/dL AST 19 (15-37) U/L ALT 13 L (14-59) U/L Alkaline Phosphatase 92 (46-116) U/L NT-Pro-B Natriuret Pep 732 H (0-450) pg/mL Total Protein 7.8 (6.4-8.2) g/dl Albumin 3.3 L (3.4-5.0) g/dl Globulin 4.5 gm/dL Albumin/Globulin Ratio 0.7 L (1-2) - Radiology Interpretation Free Text/Narrative:: CT scan of the head did not show any acute intracranial abnormalities Chest x-ray does not show any acute changes or infiltrates - Re-Assessments/Exams Free Text/Narrative Re-Assessment/Exam: 07/06/19 20:14 The blood work other than a low potassium at 3.1 does not suggest any acute problem at this time her the DIRECTOR OF EDUCATION AND TRAINING was 732. Since her CAT scan and chest x-ray and blood work looks essentially normal she'll be going back to [facility]. We did stand her up and she was able to bear weight on both lower extremities though she is somewhat weak and needs assistance. 07/06/19 20:42 The patient has been resting peacefully in no distress. With the oxygen off her pulse ox is running 93-94%. We are awaiting transport from [facility] to pick her up and take her back to the intermediate. Departure - Departure Time of Disposition: 20:14 Disposition: Home, Self-Care 01 Condition: Fair Clinical Impression: Generalized weakness, Hypokalemia Contusion of scalp Qualifiers: Encounter type: initial encounter Qualified Code(s): S00.03XA - Contusion of scalp, initial encounter - Discharge Information *PRESCRIPTION DRUG MONITORING PROGRAM REVIEWED*: Not Applicable *COPY OF PRESCRIPTION DRUG MONITORING REPORT IN PATIENT KAREN: Not Applicable Instructions: Head Injury, Adult, Hypokalemia, Weakness, [id number] Referrals: Jayme Marion MD [Primary Care Provider] - Forms: ED Department Discharge Additional Instructions: The patient may return to [facility], continue with normal daily activities and normal medications, follow-up with the family doctor next week as needed. - My Orders Last 24 Hours: My Active Orders 07/06/19 18:30 Oxygen Therapy, ED [RC] ASDIRECTED 07/06/19 19:20 Chest 2V [CR] Stat - Assessment/Plan Last 24 Hours: My Active Orders 07/06/19 18:30 Oxygen Therapy, ED [RC] ASDIRECTED 07/06/19 19:20 Chest 2V [CR] Stat
--- NOTE | 2019-07-06 19:56 | CT ---
Head CT Technique: Multiple axial sections through the brain were obtained. Intravenous contrast was not utilized. Comparison: Prior head CT study of 07/30/18. Findings: Ventricles along with basal cisterns and sulci over convexities are moderately prominent. Diminished density is noted within the periventricular and subcortical white matter which is compatible with small vessel ischemic demyelination change. 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 No other abnormal parenchymal densities are seen. No evidence of intracranial hemorrhage. No midline shift or mass effect is seen. Atherosclerotic calcification is seen within the vertebral vessels and carotid siphon. Bone window settings were obtained which shows nothing acute within the mastoid sinuses or within the paranasal sinuses. No acute calvarial abnormality is seen. Impression: 1. Senescent change as noted above. These findings appear fairly stable from previous exam. 2. No acute intracranial abnormality is appreciated. Diagnostic code #2
--- NOTE | 2019-07-07 16:15 | CR ---
Chest: Two views of the chest are obtained. Comparison: Prior chest x-ray of 03/04/19. Heart size is normal. Tortuous thoracic aorta is seen. Lungs are clear. Bony structures show scattered degenerative change within the spine. Compression deformity is noted at the thoracolumbar junction, age is indeterminate. Kyphosis is noted. Diffuse vascular calcification is present. Impression: 1. Nothing acute seen on two-view chest x-ray. 2. Age-indeterminate compression deformity at the thoracolumbar junction. Diagnostic code #2
== END 2019-07-06 20:50 | disposition home or self-care (01) ==
LOC: EDBD 18:22 → JD.ED 18:22
DX: S00.03XA Contusion of scalp, initial encounter (principal); E87.6 Hypokalemia; I25.10 Atherosclerotic heart disease of native coronary artery without angina pectoris; E78.00 Pure hypercholesterolemia, unspecified; I10 Essential (primary) hypertension; K21.9 Gastro-esophageal reflux disease without esophagitis; G30.9 Alzheimer's disease, unspecified; F02.80 Dementia in other diseases classified elsewhere, unspecified severity, without behavioral disturbance, psychotic disturbance, mood disturbance, and anxiety; E03.9 Hypothyroidism, unspecified; F32.9 Major depressive disorder, single episode, unspecified; Z79.890 Hormone replacement therapy; Z98.61 Coronary angioplasty status; Z79.899 Other long term (current) drug therapy; W19.XXXA Unspecified fall, initial encounter; Y93.89 Activity, other specified; Y92.128 Other place in nursing home as the place of occurrence of the external cause
CPT/HCPCS: 36415; 70450; 70450-26; 71046; 71046-26; 80053; 83880; 85025; 99285-25

== ENCOUNTER 2019-08-24 07:19 | Inpatient (IN) | payer MEDICARE, MEDICAID ==
[2019-08-24] MEDS ORDERED: Ondansetron 4 MG/2 ML SDV IVPUSH ONE (07:26)
[2019-08-24] MEDS ORDERED: Sodium Chloride 0.9% 1,000 ML IV STA (07:26)
[2019-08-24] MEDS ORDERED: HYDROmorphone 0.5 MG/0.5 ML Syringe IVPUSH ONE (07:27)
[2019-08-24] MEDS: Sodium Chloride 0.9% 10 ML Syringe FLUSH PRN (08:14)
--- NOTE | 2019-08-24 09:07 | EDM.PDOC ---
ED HPI GENERAL MEDICAL PROBLEM - General Chief Complaint: Abdominal Pain Stated Complaint: [facility] Time Seen by Provider: 08/24/19 07:25 Source of Information: Reports: Patient, EMS, Half-Way Records History Limitations: Reports: Language Barrier - History of Present Illness INITIAL COMMENTS - FREE TEXT/NARRATIVE: The patient presents with abdominal pain, nausea and vomiting. This has been going on since early this morning. She also has a low grade temp of 99. She has no cough, congestion, runny nose, chest pain or shortness of breath. The patient still has her gallbladder and appendix. She has no history of bowel obstruction. She did have a large bowel movement this morning. Onset: Gradual Duration: Hour(s): Location: Reports: Abdomen Quality: Reports: Sharp Improves with: Reports: None Worsens with: Reports: None Associated Symptoms: Reports: Nausea/Vomiting. Denies: Chest Pain, Cough, Fever /Chills, Headaches, Shortness of Breath Upper Abdominal Pain Score (Numeric/FACES): 10 - Related Data Allergies Allergy/AdvReac Type Severity Reaction Status Date / Time No Known Allergies Allergy Verified 07/06/19 18:43 Home Meds: Home Meds Dicyclomine [Bentyl] 10 mg PO BID 11/19/17 [History] Omeprazole 20 mg PO DAILY 11/19/17 [History] amLODIPine [Norvasc] 10 mg PO DAILY 07/03/18 [History] Acetaminophen [Tylenol] 650 mg PO BID PRN 07/12/18 [History] Acetaminophen 650 mg PO TID 07/30/18 [History] Dicyclomine [Bentyl] 10 mg PO BID PRN 07/30/18 [History] Levothyroxine [Synthroid] 75 mcg PO DAILY 04/20/19 [History] guaiFENesin [Mucinex] 600 mg PO BID 04/20/19 [History] Bisacodyl 10 mg PO DAILY PRN 07/06/19 [History] Citalopram Hydrobromide [Celexa] 10 mg PO DAILY 07/06/19 [History] Furosemide [Lasix] 20 mg PO BID 07/06/19 [History] Losartan [Cozaar] 50 mg PO DAILY 07/06/19 [History] Potassium Chloride [Klor-Con M20] 40 meq PO DAILY 07/06/19 [History] Past Medical History HEENT History: Reports: Impaired Vision, Macular Degeneration Other HEENT History: wears glasses Cardiovascular History: Reports: CAD, High Cholesterol, Hypertension Other Cardiovascular History: angioplasty, atherosclerotic heart disease Respiratory History: Reports: None Gastrointestinal History: Reports: GERD Genitourinary History: Reports: None 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: Musculoskeletal History: Reports: Osteoarthritis Other Musculoskeletal History: dorsalgia, generalized muscle weakness Neurological History: Reports: Alzheimers Disease Psychiatric History: Reports: Anxiety, Depression Endocrine/Metabolic History: Reports: Hypothyroidism Hematologic History: Reports: None Immunologic History: Reports: None Oncologic (Cancer) History: Reports: None Dermatologic History: Reports: None - Infectious Disease History Infectious Disease History: Reports: None - Past Surgical History Head Surgeries/Procedures: Reports: None HEENT Surgical History: Reports: Cataract Surgery Cardiovascular Surgical History: Reports: Percutaneous Transluminal Angioplasty GI Surgical History: Reports: Cholecystectomy, Colonoscopy Female Surgical History: Reports: Hysterectomy, Salpingo-Oophorectomy Musculoskeletal Surgical History: Reports: Knee Replacement Social & Family History - Family History Family Medical History: Noncontributory - Caffeine Use Caffeine Use: Reports: None Other Caffeine Use: two cups in morning - Living Situation & Occupation Living situation: Reports: , Extended Care Facility ([facility]) Occupation: Retired ED ROS GENERAL - Review of Systems Review Of Systems: See Below Constitutional: Reports: Fever HEENT: Reports: No Symptoms Respiratory: Reports: No Symptoms Cardiovascular: Reports: No Symptoms Endocrine: Reports: No Symptoms GI/Abdominal: Reports: Abdominal Pain, Nausea, Vomiting. Denies: Diarrhea : Reports: No Symptoms Musculoskeletal: Reports: No Symptoms ED EXAM, GI/ABD - Physical Exam Exam: See Below Exam Limited By: Language Barrier General Appearance: Alert, No Apparent Distress Ears: Normal External Exam Nose: Normal Inspection Head: Atraumatic, Normocephalic Neck: Normal Inspection Respiratory/Chest: No Respiratory Distress, Lungs Clear, Normal Breath Sounds Cardiovascular: Regular Rate, Rhythm, No Edema, No Murmur GI/Abdominal Exam: Soft, No Organomegaly, No Mass, Tender (Moderate to severe pain upon palpation to her abdomen) Back Exam: Normal Inspection Extremities: Normal Inspection Neurological: Alert, Oriented, No Motor/Sensory Deficits Course - Vital Signs Last Recorded V/S: Last Vital Signs Temp 99.0 F 08/24/19 07:33 Pulse 105 H 08/24/19 07:33 Resp 24 H 08/24/19 07:33 BP 108/42 L 08/24/19 07:33 Pulse Ox 83 L 08/24/19 07:33 - Orders/Labs/Meds Orders: Active Orders 24 hr Category Date Time Status Peripheral IV Care [RC] . DIRECTED Care 08/24/19 07:26 Active ABG [BLOOD GAS ARTERIAL] [BG] Stat Lab 08/24/19 13:25 Ordered CULTURE BLOOD [BC] Stat Lab 08/24/19 12:16 Received CULTURE BLOOD [BC] Stat Lab 08/24/19 12:24 Received CULTURE URINE [RM] Stat Lab 08/24/19 11:42 Ordered Lactated Ringers [Ringers, Lactated] 1,100 ml Med 08/24/19 13:08 Active IV .BOLUS Sodium Chloride 0.9% [Saline Flush] Med 08/24/19 07:26 Active 10 ml FLUSH ASDIRECTED PRN BiPAP [RESPCARE] Routine Oth 08/24/19 13:25 Active Blood Culture x2 Reflex Set [OM.PC] Stat Oth 08/24/19 11:32 Ordered ED Antiemetic Medication Reflex [OM.PC] Stat Oth 08/24/19 07:26 Ordered Peripheral IV Insertion Adult [OM.PC] Stat Oth 08/24/19 07:26 Ordered Medication Orders Lactated Ringer's (Ringers, Lactated) 1,100 mls @ 1,000 mls/hr IV .BOLUS ONE Stop: 08/24/19 14:13 Sodium Chloride (Saline Flush) 10 ml FLUSH ASDIRECTED PRN PRN Reason: Keep Vein Open Last Admin: 08/24/19 08:14 Dose: 10 ml Labs: Laboratory Tests 08/24/19 08/24/19 08/24/19 Range/Units 07:56 07:56 10:30 WBC 24.71 H (3.98-10.04) K/mm3 RBC 4.58 (3.98-5.22) M/mm3 Hgb 12.7 (11.2-15.7) gm/dl Hct 37.3 (34.1-44.9) % MCV 81.4 (79.4-94.8) fl MCH 27.7 (25.6-32.2) pg MCHC 34.0 (32.2-35.5) g/dl RDW Std Deviation 65.7 H (36.4-46.3) fL Plt Count 341 (182-369) K/mm3 MPV 10.0 (9.4-12.3) fl Neut % (Auto) 85.7 H (34.0-71.1) % Lymph % (Auto) 5.3 L (19.3-51.7) % [place] % (Auto) 8.0 (4.7-12.5) % Eos % (Auto) 0 L (0.7-5.8) Baso % (Auto) 0.2 (0.1-1.2) % Neut # (Auto) 21.18 H (1.56-6.13) K/mm3 Lymph # (Auto) 1.31 (1.18-3.74) K/mm3 [place] # (Auto) 1.97 H (0.24-0.36) K/mm3 Eos # (Auto) 0.00 L (0.04-0.36) K/mm3 Baso # (Auto) 0.04 (0.01-0.08) K/mm3 Manual Slide Review Abnormal smear Sodium 143 (136-145) mEq/L Potassium 3.3 L (3.5-5.1) mEq/L Chloride 108 H (98-107) mEq/L Carbon Dioxide 23 (21-32) mEq/L Anion Gap 15.3 H (5-15) BUN 29 H (7-18) mg/dL Creatinine 1.6 H (0.55-1.02) mg/dL Est Cr Clr Drug Dosing 21.26 mL/min Estimated GFR (MDRD) 31 (>60) mL/min BUN/Creatinine Ratio 18.1 H (14-18) Glucose 104 (83-115) mg/dL Lactic Acid (0.4-2.0) mmol/L Calcium 8.8 (8.5-10.1) mg/dL Total Bilirubin 0.8 (0.2-1.0) mg/dL AST 19 (15-37) U/L ALT 11 L (14-59) U/L Alkaline Phosphatase 56 (46-116) U/L Total Protein 6.4 (6.4-8.2) g/dl Albumin 2.7 L (3.4-5.0) g/dl Globulin 3.7 gm/dL Albumin/Globulin Ratio 0.7 L (1-2) Lipase 67 L (73-393) U/L Urine Color Yellow (Yellow) Urine Appearance Slt cloudy H (Clear) Urine pH 6.0 (5.0-8.0) Ur Specific [place] 1.025 (1.005-1.030) Urine Protein 3+ H (Negative) Urine Glucose (UA) Negative (Negative) Urine Ketones Negative (Negative) Urine Occult Blood Trace-intact H (Negative) Urine Nitrite Negative (Negative) Urine Bilirubin Negative (Negative) Urine Urobilinogen 0.2 (0.2-1.0) Ur Leukocyte Esterase Trace H (Negative) Urine RBC Not seen (0-5) /hpf Urine WBC 10-20 H (0-5) /hpf Ur Squamous Epith Cells Not seen (0-5) /hpf Urine Bacteria Moderate H (FEW) /hpf Urine Mucus Not seen (FEW) /hpf 12/14/19 Range/Units 12:16 WBC (3.98-10.04) K/mm3 RBC (3.98-5.22) M/mm3 Hgb (11.2-15.7) gm/dl Hct (34.1-44.9) % MCV (79.4-94.8) fl MCH (25.6-32.2) pg MCHC (32.2-35.5) g/dl RDW Std Deviation (36.4-46.3) fL Plt Count (182-369) K/mm3 MPV (9.4-12.3) fl Neut % (Auto) (34.0-71.1) % Lymph % (Auto) (19.3-51.7) % [place] % (Auto) (4.7-12.5) % Eos % (Auto) (0.7-5.8) Baso % (Auto) (0.1-1.2) % Neut # (Auto) (1.56-6.13) K/mm3 Lymph # (Auto) (1.18-3.74) K/mm3 [place] # (Auto) (0.24-0.36) K/mm3 Eos # (Auto) (0.04-0.36) K/mm3 Baso # (Auto) (0.01-0.08) K/mm3 Manual Slide Review Sodium (136-145) mEq/L Potassium (3.5-5.1) mEq/L Chloride (98-107) mEq/L Carbon Dioxide (21-32) mEq/L Anion Gap (5-15) BUN (7-18) mg/dL Creatinine (0.55-1.02) mg/dL Est Cr Clr Drug Dosing mL/min Estimated GFR (MDRD) (>60) mL/min BUN/Creatinine Ratio (14-18) Glucose (83-115) mg/dL Lactic Acid 5.3 H* (0.4-2.0) mmol/L Calcium (8.5-10.1) mg/dL Total Bilirubin (0.2-1.0) mg/dL AST (15-37) U/L ALT (14-59) U/L Alkaline Phosphatase (46-116) U/L Total Protein (6.4-8.2) g/dl Albumin (3.4-5.0) g/dl Globulin gm/dL Albumin/Globulin Ratio (1-2) Lipase (73-393) U/L Urine Color (Yellow) Urine Appearance (Clear) Urine pH (5.0-8.0) Ur Specific [place] (1.005-1.030) Urine Protein (Negative) Urine Glucose (UA) (Negative) Urine Ketones (Negative) Urine Occult Blood (Negative) Urine Nitrite (Negative) Urine Bilirubin (Negative) Urine Urobilinogen (0.2-1.0) Ur Leukocyte Esterase (Negative) Urine RBC (0-5) /hpf Urine WBC (0-5) /hpf Ur Squamous Epith Cells (0-5) /hpf Urine Bacteria (FEW) /hpf Urine Mucus (FEW) /hpf Meds: Medications Generic Name Dose Route Start Last Admin Trade Name Freq PRN Reason Stop Dose Admin Lactated Ringer's 1,100 mls @ 1,000 mls/hr 08/24/19 13:08 Ringers, Lactated IV 08/24/19 14:13 .BOLUS ONE Sodium Chloride 10 ml 08/24/19 07:26 08/24/19 08:14 Saline Flush FLUSH 10 ml ASDIRECTED PRN Administration Keep Vein Open Discontinued Medications Generic Name Dose Route Start Last Admin Trade Name Freq PRN Reason Stop Dose Admin Hydromorphone HCl 0.5 mg 08/24/19 07:27 08/24/19 08:15 Dilaudid IVPUSH 08/24/19 07:28 0.5 mg ONETIME ONE Administration Sodium Chloride 1,000 mls @ 1,000 mls/hr 08/24/19 07:26 08/24/19 08:13 Normal Saline IV 08/24/19 08:25 1,000 mls/hr .BOLUS STA Administration Cefepime HCl 2 gm/ Premix 50 mls @ 100 mls/hr 08/24/19 12:49 IV 08/24/19 13:18 ONETIME ONE Ondansetron HCl 4 mg 08/24/19 07:26 08/24/19 08:13 Zofran IVPUSH 08/24/19 07:27 4 mg ONETIME ONE Administration - Re-Assessments/Exams Free Text/Narrative Re-Assessment/Exam: 08/24/19 09:10 I have ordered an IV NS 500ml bolus, zofran 4mg IV, dilaudid 0.5mg IV, labs, UA and a CT of her abdomen and pelvis with IV and oral contrast. Her WBC is elevated at 24.71. Her K was low at 3.3. Her anion gap is elevated at 15.3. Her BUN was elevated at 29. Her creatinine was elevated at 1.6. Her GFR is elevated at 31. Her lipase is negative. I will not give her IV contrast. 08/24/19 13:00 Her UA shows a UTI. I have ordered a urine culture, blood cultures and lactic acid. The CT shows a confusing findings within the right lower abdomen. Small bowel is mildly dilated down to an area of stool within the ileum. Stool is seen within the distal ileum into the cecum. Inflammatory change is seen around this area of stool within the ileum. Etiology for the inflammatory change is not appreciated on this study. Parenchymal consolidation within both lung bases, worse on the right with differential including change from aspiration or pneumonia. I have ordered another bolus of LR now. She did get 1,000 of NS. I called Dr Rucker and we talked about the CT and he did not think this was surgical. He did recommend some cefepime so I ordered that and admit to medicine. I have talked to Dr Frankel and I called the patient's daughter to update her. 08/24/19 13:10 She also meets criteria for sepsis. 08/24/19 13:27 Her oxygen saturations are lower now at 83% on 6L NC. I have stopped the fluid bolus and I will get an ABG and put her on BiPAP. Departure - Departure Time of Disposition: 13:10 Disposition: Admitted As Inpatient 65 Clinical Impression: Ileitis, Hypoxia Sepsis Qualifiers: Sepsis type: sepsis due to unspecified organism Sepsis acute organ dysfunction status: unspecified Qualified Code(s): A41.9 - Sepsis, unspecified organism UTI (urinary tract infection) Qualifiers: Urinary tract infection type: site unspecified Hematuria presence: without hematuria Qualified Code(s): N39.0 - Urinary tract infection, site not specified Aspiration pneumonia Qualifiers: Aspiration pneumonia type: due to vomit Laterality: bilateral Lung location: lower lobe of lung Qualified Code(s): J69.0 - Pneumonitis due to inhalation of food and vomit - Discharge Information Referrals: Jayme Marion MD [Primary Care Provider] - Forms: ED Department Discharge Sepsis Event Note - Evaluation Sepsis Screening Result: Possible Severe Sepsis Risk - Focused Exam Vital Signs: Vital Signs Temp Pulse Resp BP Pulse Ox 08/24/19 07:33 99.0 F 105 H 24 H 108/42 L 83 L Date Exam was Performed: 08/24/19 Time Exam was Performed: 13:27 - My Orders Last 24 Hours: My Active Orders 08/24/19 07:26 Peripheral IV Care [RC] . DIRECTED Sodium Chloride 0.9% [Saline Flush] 10 ml FLUSH ASDIRECTED PRN ED Antiemetic Medication Reflex [OM.PC] Stat Peripheral IV Insertion Adult [OM.PC] Stat 08/24/19 11:32 Blood Culture x2 Reflex Set [OM.PC] Stat 08/24/19 11:42 CULTURE URINE [RM] Stat 08/24/19 12:16 CULTURE BLOOD [BC] Stat 08/24/19 12:24 CULTURE BLOOD [BC] Stat 08/24/19 13:08 Lactated Ringers [Ringers, Lactated] 1,100 ml IV .BOLUS 08/24/19 13:25 ABG [BLOOD GAS ARTERIAL] [BG] Stat BiPAP [RESPCARE] Routine - Assessment/Plan Last 24 Hours: My Active Orders 08/24/19 07:26 Peripheral IV Care [RC] . DIRECTED Sodium Chloride 0.9% [Saline Flush] 10 ml FLUSH ASDIRECTED PRN ED Antiemetic Medication Reflex [OM.PC] Stat Peripheral IV Insertion Adult [OM.PC] Stat 08/24/19 11:32 Blood Culture x2 Reflex Set [OM.PC] Stat 08/24/19 11:42 CULTURE URINE [RM] Stat 08/24/19 12:16 CULTURE BLOOD [BC] Stat 08/24/19 12:24 CULTURE BLOOD [BC] Stat 08/24/19 13:08 Lactated Ringers [Ringers, Lactated] 1,100 ml IV .BOLUS 08/24/19 13:25 ABG [BLOOD GAS ARTERIAL] [BG] Stat BiPAP [RESPCARE] Routine
--- NOTE | 2019-08-24 12:32 | CT ---
CT abdomen and pelvis Technique: Multiple axial sections were obtained from above the dome of the diaphragm inferiorly through the pubic symphysis. Intravenous contrast was not utilized. Oral contrast has been given. Findings: Parenchymal consolidation is seen within the right lung base. Lesser consolidation is seen within the left base. Heart is enlarged. Coronary artery calcification is noted. Small amount of fluid seen anteriorly to the liver. Surgical clips are seen from prior cholecystectomy. Liver contains no discrete abnormality. Spleen size is normal. Cyst is noted within the left kidney measuring 3.7 cm in size. Kidneys show no hydronephrosis or abnormal calcifications. No ureteral dilatation is seen. Pancreas shows no discrete abnormality. Adrenal glands appear within normal limits. Aorta shows diffuse atherosclerotic calcification which continues into the iliac vessels. No aneurysm is seen. No retroperitoneal adenopathy or mesenteric abnormalities are seen. No pelvic mass or adenopathy is seen. Small bowel is dilated which contains contrast and fluid. Distal ileum shows evidence of stool. Inflammatory change is seen within the right mid to lower abdomen. This inflammatory change occurs in the area of stool within the ileum. Appendix is felt to be partially visualized and is normal in size. Etiology for the inflammatory change is not appreciated on this exam. Diverticuli without inflammatory change is seen within the sigmoid and descending colon. No free air is appreciated. Bone window settings were reviewed which shows a compression deformity of L1 which is felt to be old. Scattered degenerative change is also noted. Impression: 1. Confusing findings within the right lower abdomen. Small bowel is mildly dilated down to an area of stool within the ileum. Stool is seen within the distal ileum into the cecum. Inflammatory change is seen around this area of stool within the ileum. Etiology for the inflammatory change is not appreciated on this study. 2. Small amount of fluid around the liver. 3. Parenchymal consolidation within both lung bases, worse on the right side with differential including change from aspiration or pneumonia. Diagnostic code #3 This report was dictated in [place] Standard Time
[2019-08-24] MEDS ORDERED: Cefepime 2 GM in Premix Bag 1 BAG IV ONE (12:49)
[2019-08-24] MEDS: LACTATED RINGERS IV ONE ×2 (13:33→13:40)
[2019-08-24] MEDS ORDERED: Levofloxacin/Dextrose 5%-Water 750 MG in Premix Bag 1 BAG IV ONE (13:38)
[2019-08-24] MEDS ORDERED: Etomidate 2 MG/ML 20 ML SDV IVPUSH ONE (15:00)
[2019-08-24] MEDS ORDERED: Succinylcholine 200 MG/10 ML MDV ONE (15:00)
--- NOTE | 2019-08-24 15:22 | CR ---
Chest: Frontal view of the chest was obtained utilizing portable technique. Findings: Right-sided central line is seen with tip lying past the right atrial and inferior vena cava junction and lies within the region of the intrahepatic portion of the inferior vena cava. Slight parenchymal density is noted within the right base and more prominent parenchymal density within the left base. Heart size is within normal limits for portable technique. Tortuous thoracic aorta is seen. No pneumothorax is identified. Impression: 1. Central line with tip lying within the intrahepatic portion of the inferior vena cava. 2. Parenchymal densities within the right base and left lung base. Uncertain if this represents prominent areas of atelectasis, change from aspiration or pneumonia. Diagnostic code #3 This report was dictated in [place] Standard Time
[2019-08-24] MEDS ORDERED: Midazolam 50 MG in Sodium Chloride 0.9% 40 ML IV SCH (15:30)
[2019-08-24] MEDS: fentaNYL 2,500 MCG in Sodium Chloride 0.9% 200 ML IV SCH (16:12)
--- NOTE | 2019-08-24 16:15 | PCM.CONS ---
H&P History of Present Illness - General Date of Service: 08/24/19 Admit Problem/Dx: Admission Diagnosis/Problem Admission Diagnosis/Problem Sepsis due to pneumonia History Limitations: Reports: Language Barrier (lao speaking) - History of Present Illness Initial Comments - Free Text/Narative: [facility] with acute abdominal [facility]. She vomited in the ED. CT scan revealed bowel inflammation on the RLQ that was non- specific. Onset of Symptoms: Reports: Unknown/Unsure Duration of Symptoms: Reports: Getting Worse Location: Reports: Abdomen Quality: Reports: Sharp Severity: Severe Improves with: Reports: Immobilization Worsens with: Reports: Movement Associated Symptoms: Reports: No Other Symptoms Upper Abdominal Pain Score (Numeric/FACES): 10 - Related Data Allergies/Adverse Reactions: Allergies Allergy/AdvReac Type Severity Reaction Status Date / Time No Known Allergies Allergy Verified 07/06/19 18:43 Home Medications: Home Meds Dicyclomine [Bentyl] 10 mg PO BID 11/19/17 [History] Omeprazole 20 mg PO DAILY 11/19/17 [History] amLODIPine [Norvasc] 10 mg PO DAILY 07/03/18 [History] Acetaminophen [Tylenol] 650 mg PO BID PRN 07/12/18 [History] Acetaminophen 650 mg PO TID 07/30/18 [History] Dicyclomine [Bentyl] 10 mg PO BID PRN 07/30/18 [History] Levothyroxine [Synthroid] 75 mcg PO DAILY 04/20/19 [History] guaiFENesin [Mucinex] 600 mg PO BID 04/20/19 [History] Bisacodyl 10 mg PO DAILY PRN 07/06/19 [History] Citalopram Hydrobromide [Celexa] 10 mg PO DAILY 07/06/19 [History] Furosemide [Lasix] 20 mg PO BID 07/06/19 [History] Losartan [Cozaar] 50 mg PO DAILY 07/06/19 [History] Potassium Chloride [Klor-Con M20] 40 meq PO DAILY 07/06/19 [History] Past Medical History HEENT History: Reports: Impaired Vision, Macular Degeneration Other HEENT History: wears glasses Cardiovascular History: Reports: CAD, High Cholesterol, Hypertension Other Cardiovascular History: angioplasty, atherosclerotic heart disease Respiratory History: Reports: None Gastrointestinal History: Reports: GERD Genitourinary History: Reports: None 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: Musculoskeletal History: Reports: Osteoarthritis Other Musculoskeletal History: dorsalgia, generalized muscle weakness Neurological History: Reports: Alzheimers Disease Psychiatric History: Reports: Anxiety, Depression Endocrine/Metabolic History: Reports: Hypothyroidism Hematologic History: Reports: None Immunologic History: Reports: None Oncologic (Cancer) History: Reports: None Dermatologic History: Reports: None - Infectious Disease History Infectious Disease History: Reports: None - Past Surgical History Head Surgeries/Procedures: Reports: None HEENT Surgical History: Reports: Cataract Surgery Cardiovascular Surgical History: Reports: Percutaneous Transluminal Angioplasty GI Surgical History: Reports: Cholecystectomy, Colonoscopy Female Surgical History: Reports: Hysterectomy, Salpingo-Oophorectomy Musculoskeletal Surgical History: Reports: Knee Replacement Social & Family History - Family History Family Medical History: Noncontributory - Caffeine Use Caffeine Use: Reports: None Other Caffeine Use: two cups in morning - Living Situation & Occupation Living situation: Reports: , Extended Care Facility ([facility]) Occupation: Retired H&P Review of Systems - Review of Systems: Review Of Systems: See Below General: Reports: No Symptoms HEENT: Reports: No Symptoms Pulmonary: Reports: No Symptoms Cardiovascular: Reports: No Symptoms Gastrointestinal: Reports: Abdominal Pain Genitourinary: Reports: No Symptoms Musculoskeletal: Reports: No Symptoms Skin: Reports: No Symptoms Psychiatric: Reports: No Symptoms Neurological: Reports: No Symptoms Exam - Exam Exam: See Below - Vital Signs Vital Signs: Last Vital Signs Temp 99.0 F 08/24/19 07:33 Pulse 105 H 08/24/19 07:33 Resp 24 H 08/24/19 07:33 BP 108/42 L 08/24/19 07:33 Pulse Ox 97 08/24/19 14:43 Weight: 72.756 kg - Exam General: Alert, Oriented, Severe Distress Lungs: Normal Respiratory Effort, Decreased Breath Sounds (right base) Cardiovascular: Regular Rate, Regular Rhythm, Normal S1, Normal S2 GI/Abdominal Exam: Pelvis Stable, Distended, Guarding, Rebound - Patient Data Lab Results Last 24 hrs: Laboratory Results - last 24 hr 08/24/19 08/24/19 08/24/19 Range/Units 07:56 07:56 10:30 WBC 24.71 H (3.98-10.04) K/mm3 RBC 4.58 (3.98-5.22) M/mm3 Hgb 12.7 (11.2-15.7) gm/dl Hct 37.3 (34.1-44.9) % MCV 81.4 (79.4-94.8) fl MCH 27.7 (25.6-32.2) pg MCHC 34.0 (32.2-35.5) g/dl RDW Std Deviation 65.7 H (36.4-46.3) fL Plt Count 341 (182-369) K/mm3 MPV 10.0 (9.4-12.3) fl Neut % (Auto) 85.7 H (34.0-71.1) % Lymph % (Auto) 5.3 L (19.3-51.7) % [place] % (Auto) 8.0 (4.7-12.5) % Eos % (Auto) 0 L (0.7-5.8) Baso % (Auto) 0.2 (0.1-1.2) % Neut # (Auto) 21.18 H (1.56-6.13) K/mm3 Lymph # (Auto) 1.31 (1.18-3.74) K/mm3 [place] # (Auto) 1.97 H (0.24-0.36) K/mm3 Eos # (Auto) 0.00 L (0.04-0.36) K/mm3 Baso # (Auto) 0.04 (0.01-0.08) K/mm3 Manual Slide Review Abnormal smear Puncture Site ABG pH (7.35-7.45) ABG pCO2 (35.0-45.0) mmHg ABG pO2 (80.0-100.0) mmHg ABG HCO3 (22.0-26.0) meq/L ABG O2 Saturation (96.0-97.0) % ABG Base Excess (-2-2.0) Kerwin Test O2 Delivery Device Oxygen Flow Rate FiO2 (21.00-100.00) % Sodium 143 (136-145) mEq/L Potassium 3.3 L (3.5-5.1) mEq/L Chloride 108 H (98-107) mEq/L Carbon Dioxide 23 (21-32) mEq/L Anion Gap 15.3 H (5-15) BUN 29 H (7-18) mg/dL Creatinine 1.6 H (0.55-1.02) mg/dL Est Cr Clr Drug Dosing 21.26 mL/min Estimated GFR (MDRD) 31 (>60) mL/min BUN/Creatinine Ratio 18.1 H (14-18) Glucose 104 (83-115) mg/dL Lactic Acid (0.4-2.0) mmol/L Calcium 8.8 (8.5-10.1) mg/dL Total Bilirubin 0.8 (0.2-1.0) mg/dL AST 19 (15-37) U/L ALT 11 L (14-59) U/L Alkaline Phosphatase 56 (46-116) U/L Total Protein 6.4 (6.4-8.2) g/dl Albumin 2.7 L (3.4-5.0) g/dl Globulin 3.7 gm/dL Albumin/Globulin Ratio 0.7 L (1-2) Lipase 67 L (73-393) U/L Urine Color Yellow (Yellow) Urine Appearance Slt cloudy H (Clear) Urine pH 6.0 (5.0-8.0) Ur Specific [place] 1.025 (1.005-1.030) Urine Protein 3+ H (Negative) Urine Glucose (UA) Negative (Negative) Urine Ketones Negative (Negative) Urine Occult Blood Trace-intact H (Negative) Urine Nitrite Negative (Negative) Urine Bilirubin Negative (Negative) Urine Urobilinogen 0.2 (0.2-1.0) Ur Leukocyte Esterase Trace H (Negative) Urine RBC Not seen (0-5) /hpf Urine WBC 10-20 H (0-5) /hpf Ur Squamous Epith Cells Not seen (0-5) /hpf Urine Bacteria Moderate H (FEW) /hpf Urine Mucus Not seen (FEW) /hpf 08/24/19 08/24/19 Range/Units 12:16 13:25 WBC (3.98-10.04) K/mm3 RBC (3.98-5.22) M/mm3 Hgb (11.2-15.7) gm/dl Hct (34.1-44.9) % MCV (79.4-94.8) fl MCH (25.6-32.2) pg MCHC (32.2-35.5) g/dl RDW Std Deviation (36.4-46.3) fL Plt Count (182-369) K/mm3 MPV (9.4-12.3) fl Neut % (Auto) (34.0-71.1) % Lymph % (Auto) (19.3-51.7) % [place] % (Auto) (4.7-12.5) % Eos % (Auto) (0.7-5.8) Baso % (Auto) (0.1-1.2) % Neut # (Auto) (1.56-6.13) K/mm3 Lymph # (Auto) (1.18-3.74) K/mm3 [place] # (Auto) (0.24-0.36) K/mm3 Eos # (Auto) (0.04-0.36) K/mm3 Baso # (Auto) (0.01-0.08) K/mm3 Manual Slide Review Puncture Site Lt radial ABG pH 7.30 L (7.35-7.45) ABG pCO2 38.3 (35.0-45.0) mmHg ABG pO2 55.0 L (80.0-100.0) mmHg ABG HCO3 18.1 L (22.0-26.0) meq/L ABG O2 Saturation 83.8 L (96.0-97.0) % ABG Base Excess -7.4 L (-2-2.0) Kerwin Test Positive O2 Delivery Device Nasal cannula Oxygen Flow Rate 6.0 FiO2 0.00 L (21.00-100.00) % Sodium (136-145) mEq/L Potassium (3.5-5.1) mEq/L Chloride (98-107) mEq/L Carbon Dioxide (21-32) mEq/L Anion Gap (5-15) BUN (7-18) mg/dL Creatinine (0.55-1.02) mg/dL Est Cr Clr Drug Dosing mL/min Estimated GFR (MDRD) (>60) mL/min BUN/Creatinine Ratio (14-18) Glucose (83-115) mg/dL Lactic Acid 5.3 H* (0.4-2.0) mmol/L Calcium (8.5-10.1) mg/dL Total Bilirubin (0.2-1.0) mg/dL AST (15-37) U/L ALT (14-59) U/L Alkaline Phosphatase (46-116) U/L Total Protein (6.4-8.2) g/dl Albumin (3.4-5.0) g/dl Globulin gm/dL Albumin/Globulin Ratio (1-2) Lipase (73-393) U/L Urine Color (Yellow) Urine Appearance (Clear) Urine pH (5.0-8.0) Ur Specific [place] (1.005-1.030) Urine Protein (Negative) Urine Glucose (UA) (Negative) Urine Ketones (Negative) Urine Occult Blood (Negative) Urine Nitrite (Negative) Urine Bilirubin (Negative) Urine Urobilinogen (0.2-1.0) Ur Leukocyte Esterase (Negative) Urine RBC (0-5) /hpf Urine WBC (0-5) /hpf Ur Squamous Epith Cells (0-5) /hpf Urine Bacteria (FEW) /hpf Urine Mucus (FEW) /hpf Result Diagrams: 08/24/19 07:56 08/24/19 07:56 Sepsis Event Note - Evaluation Sepsis Screening Result: Possible Severe Sepsis Risk - Focused Exam Vital Signs: Vital Signs Temp Pulse Resp BP Pulse Ox Pulse Ox 08/24/19 14:43 97 08/24/19 07:33 99.0 F 105 H 24 H 108/42 L 83 L Date Exam was Performed: 08/24/19 Time Exam was Performed: 16:07 Consult PN Assessment/Plan Procedures: Procedures 3D RENDER W/INTRP POSTPROCES (07/13/18) AIRWAY INHALATION TREATMENT (05/06/19) ASSAY OF CREATININE (07/03/18) ASSAY OF FOLIC ACID SERUM (11/19/17) ASSAY OF LACTIC ACID (05/06/19) ASSAY OF LIPASE (06/19/17) ASSAY OF MAGNESIUM (05/06/19) ASSAY OF NATRIURETIC PEPTIDE (07/06/19) ASSAY OF TROPONIN QUANT (05/06/19) ASSAY THYROID STIM HORMONE (11/19/17) BL SMEAR W/DIFF WBC COUNT (05/06/19) BLOOD CULTURE FOR BACTERIA (05/06/19) C-REACTIVE PROTEIN (11/19/17) COMPLETE CBC AUTOMATED (05/06/19) COMPLETE CBC W/AUTO DIFF WBC (07/06/19) COMPREHEN METABOLIC PANEL (07/06/19) CT HEAD/BRAIN W/O DYE (07/06/19) CT NECK SPINE W/O DYE (07/30/18) CT THORAX W/DYE (07/03/18) CT THORAX W/O DYE (05/06/19) CT UPPER EXTREMITY W/O DYE (07/13/18) DXA BONE DENSITY AXIAL (01/07/16) ECG MONIT/REPRT UP TO 48 HRS (03/30/16) ECG MONIT/REPRT UP TO 48 HRS (03/30/16) ELECTROCARDIOGRAM TRACING (05/06/19) EMERGENCY DEPT VISIT (07/06/19) EMERGENCY DEPT VISIT (07/30/18) EMERGENCY DEPT VISIT (07/12/18) EMERGENCY DEPT VISIT (07/03/18) EMERGENCY DEPT VISIT (11/19/17) EMERGENCY DEPT VISIT (06/19/17) EMERGENCY DEPT VISIT (06/08/17) EMERGENCY DEPT VISIT (07/13/16) EXTRACRANIAL BILAT STUDY (11/19/17) EXTREMITY STUDY (05/06/19) GAIT TRAINING THERAPY (11/19/17) GLUCOSE BLOOD TEST (04/20/19) HELICOBACTER PYLORI ANTIBODY (12/22/15) HPYLORI STOOL IA (02/24/19) HYDRATE IV INFUSION ADD-ON (03/04/19) HYDRATION IV INFUSION INIT (03/04/19) INFLUENZA ASSAY W/OPTIC (11/19/17) LIPID PANEL (11/19/17) MEASURE BLOOD OXYGEN LEVEL (05/06/19) METABOLIC PANEL TOTAL CA (05/06/19) MICROBE SUSCEPTIBLE DIFFUSE (01/26/19) MICROBE SUSCEPTIBLE DISK (01/26/19) MR-STAPH DNA AMP PROBE (05/06/19) MRI BRAIN STEM W/O DYE (11/19/17) MYCOPLASMA ANTIBODY (11/19/17) OT EVAL LOW COMPLEX 30 MIN (05/06/19) PROTHROMBIN TIME (04/20/19) PT EVAL LOW COMPLEX 20 MIN (05/06/19) PT EVAL MOD COMPLEX 30 MIN (11/19/17) RBC SED RATE AUTOMATED (11/19/17) ROUTINE VENIPUNCTURE (07/06/19) RPR S/N/AX/GEN/TRNK 2.5CM/< (07/12/18) THER/PROPH/DIAG INJ IV PUSH (11/19/17) THER/PROPH/DIAG INJ SC/IM (11/19/17) THER/PROPH/DIAG IV INF ADDON (05/06/19) THER/PROPH/DIAG IV INF INIT (05/06/19) THERAPEUTIC ACTIVITIES (05/06/19) THERAPEUTIC EXERCISES (05/06/19) TTE W/DOPPLER COMPLETE (05/06/19) TX/PRO/DX INJ NEW DRUG ADDON (05/06/19) TX/PRO/DX INJ SAME DRUG TAILOR WOMEN'S GARMENT ALTERATION (05/06/19) TX/PROPH/DG ADDL SEQ IV INF (05/06/19) URINALYSIS AUTO W/SCOPE (05/06/19) URINE BACTERIA CULTURE (01/26/19) URINE CULTURE/COLONY COUNT (01/26/19) VITAMIN B-12 (11/19/17) X-RAY EXAM CHEST 1 VIEW (05/06/19) X-RAY EXAM CHEST 2 VIEWS (07/06/19) X-RAY EXAM HIP UNI 2-3 VIEWS (07/30/18) X-RAY EXAM OF ABDOMEN (06/19/17) X-RAY EXAM OF ELBOW (07/03/18) X-RAY EXAM OF SHOULDER (07/03/18) X-RAY EXAM SERIES ABDOMEN (03/30/16) Problem List Initiated/Reviewed/Updated: No Plan: Patient has peritonitis on exam and on my review of CT scan she has pneumatosis intestinalis with unclear source. Her oxygen saturation was low requiring intubation. I recommend emergent abdominal exploration for her for source control. I will take her to the OR for surgery for source control and resuscitation. if she requires higher level care we will transfer to [place]. Consent obtained from patient's daughter.
[2019-08-24] MEDS: Piperacillin/Tazobactam 4.5 GM in Sodium Chloride 0.9% 100 ML IV SCH ×2 (16:16→22:48)
--- NOTE | 2019-08-24 16:17 | PCM.HP.2 ---
H&P History of Present Illness - General Date of Service: 08/24/19 Admit Problem/Dx: Admission Diagnosis/Problem Admission Diagnosis/Problem Sepsis due to pneumonia - History of Present Illness Initial Comments - Free Text/Narative: Patient brought in from residential for abdominal pain. ED documentation "The patient presents with abdominal pain, nausea and vomiting. This has been going on since early this morning. She also has a low grade temp of 99. She has no cough, congestion, runny nose, chest pain or shortness of breath. The patient still has her gallbladder and appendix. She has no history of bowel obstruction. She did have a large bowel movement this morning. Onset: Gradual Duration: Hour(s): Location: Reports: Abdomen Quality: Reports: Sharp Improves with: Reports: None Worsens with: Reports: None Associated Symptoms: Reports: Nausea/Vomiting. Denies: Chest Pain, Cough, Fever /Chills, Headaches, Shortness of Breath Upper Abdominal Pain Score (Numeric/FACES): 10" Upper Abdominal Pain Score (Numeric/FACES): 10 - Related Data Allergies/Adverse Reactions: Allergies Allergy/AdvReac Type Severity Reaction Status Date / Time No Known Allergies Allergy Verified 07/06/19 18:43 Home Medications: Home Meds Dicyclomine [Bentyl] 10 mg PO BID 11/19/17 [History] Omeprazole 20 mg PO DAILY 11/19/17 [History] amLODIPine [Norvasc] 10 mg PO DAILY 07/03/18 [History] Acetaminophen [Tylenol] 650 mg PO BID PRN 07/12/18 [History] Acetaminophen 650 mg PO TID 07/30/18 [History] Dicyclomine [Bentyl] 10 mg PO BID PRN 07/30/18 [History] Levothyroxine [Synthroid] 75 mcg PO DAILY 04/20/19 [History] guaiFENesin [Mucinex] 600 mg PO BID 04/20/19 [History] Bisacodyl 10 mg PO DAILY PRN 07/06/19 [History] Citalopram Hydrobromide [Celexa] 10 mg PO DAILY 07/06/19 [History] Furosemide [Lasix] 20 mg PO BID 07/06/19 [History] Losartan [Cozaar] 50 mg PO DAILY 07/06/19 [History] Potassium Chloride [Klor-Con M20] 40 meq PO DAILY 07/06/19 [History] Past Medical History HEENT History: Reports: Impaired Vision, Macular Degeneration Other HEENT History: wears glasses Cardiovascular History: Reports: CAD, High Cholesterol, Hypertension Other Cardiovascular History: angioplasty, atherosclerotic heart disease Respiratory History: Reports: None Gastrointestinal History: Reports: GERD Genitourinary History: Reports: None 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: Musculoskeletal History: Reports: Osteoarthritis Other Musculoskeletal History: dorsalgia, generalized muscle weakness Neurological History: Reports: Alzheimers Disease Psychiatric History: Reports: Anxiety, Depression Endocrine/Metabolic History: Reports: Hypothyroidism Hematologic History: Reports: None Immunologic History: Reports: None Oncologic (Cancer) History: Reports: None Dermatologic History: Reports: None - Infectious Disease History Infectious Disease History: Reports: None - Past Surgical History Head Surgeries/Procedures: Reports: None HEENT Surgical History: Reports: Cataract Surgery Cardiovascular Surgical History: Reports: Percutaneous Transluminal Angioplasty GI Surgical History: Reports: Cholecystectomy, Colonoscopy Female Surgical History: Reports: Hysterectomy, Salpingo-Oophorectomy Musculoskeletal Surgical History: Reports: Knee Replacement Social & Family History - Family History Family Medical History: Noncontributory - Caffeine Use Caffeine Use: Reports: None Other Caffeine Use: two cups in morning - Living Situation & Occupation Living situation: Reports: , Extended Care Facility ([facility]) Occupation: Retired H&P Review of Systems - Review of Systems: Review Of Systems: Unable To Obtain Reason Not Obtained: Altered mental status Exam - Exam Exam: See Below - Vital Signs Vital Signs: Last Vital Signs Temp 99.0 F 08/24/19 07:33 Pulse 105 H 08/24/19 07:33 Resp 24 H 08/24/19 07:33 BP 108/42 L 08/24/19 07:33 Pulse Ox 97 08/24/19 14:43 Weight: 72.756 kg - Exam Quality Assessment: Supplemental Oxygen General: Moderate Distress HEENT: Conjunctiva Clear, EACs Clear. No: Mucosa Moist & [place] Neck: Supple, Trachea Midline, +2 Carotid Pulse wo Bruit Lungs: Decreased Breath Sounds, Crackles, Rales, Rhonchi, Wheezing. No: Rub Cardiovascular: Regular Rate, Regular Rhythm. No: Systolic Murmur, Diastolic Murmur, Rubs, Gallop/S3, Gallop/S4 GI/Abdominal Exam: Guarding, Rigid, Rebound, Tender, Abnormal Bowel Sounds Extremities: Normal Inspection, Pedal Edema, Slow Capillary Refill - Patient Data Result Diagrams: 08/25/19 04:45 08/25/19 04:45 Sepsis Event Note - Evaluation Sepsis Screening Result: Possible Severe Sepsis Risk - Focused Exam Vital Signs: Vital Signs Temp Pulse Resp BP Pulse Ox Pulse Ox 08/24/19 14:43 97 08/24/19 07:33 99.0 F 105 H 24 H 108/42 L 83 L Date Exam was Performed: 08/25/19 Time Exam was Performed: 09:29 - Problem List (1) Aspiration pneumonia SNOMED Code(s): 621988438 ICD Code: J69.0 - PNEUMONITIS DUE TO INHALATION OF FOOD AND VOMIT Status: Acute Current Visit: Yes Qualifiers: Aspiration pneumonia type: due to vomit Laterality: bilateral Lung location: lower lobe of lung Qualified Code(s): J69.0 - Pneumonitis due to inhalation of food and vomit (2) Hypoxia SNOMED Code(s): 979282028 ICD Code: R09.02 - HYPOXEMIA Status: Acute Current Visit: Yes (3) Ileitis SNOMED Code(s): 48393193 ICD Code: K52.9 - NONINFECTIVE GASTROENTERITIS AND COLITIS, UNSPECIFIED Status: Acute Current Visit: Yes (4) Sepsis SNOMED Code(s): 66676101 ICD Code: A41.9 - SEPSIS, UNSPECIFIED ORGANISM Status: Acute Current Visit: Yes Qualifiers: Sepsis type: sepsis due to unspecified organism Sepsis acute organ dysfunction status: unspecified Qualified Code(s): A41.9 - Sepsis, unspecified organism (5) UTI (urinary tract infection) SNOMED Code(s): 55629204 ICD Code: N39.0 - URINARY TRACT INFECTION, SITE NOT SPECIFIED Status: Acute Current Visit: Yes Qualifiers: Urinary tract infection type: site unspecified Hematuria presence: without hematuria Qualified Code(s): N39.0 - Urinary tract infection, site not specified (6) Abdominal pain SNOMED Code(s): 30836625 ICD Code: R10.9 - UNSPECIFIED ABDOMINAL PAIN Status: Acute Current Visit : No Qualifiers: Abdominal location: epigastric Qualified Code(s): R10.13 - Epigastric pain (7) High anion gap metabolic acidosis SNOMED Code(s): 62173440 ICD Code: E87.2 - ACIDOSIS Status: Acute Current Visit: Yes (8) Respiratory alkalosis SNOMED Code(s): 760781387 ICD Code: E87.3 - ALKALOSIS Status: Acute Current Visit: Yes (9) Acute abdomen SNOMED Code(s): 0048783 ICD Code: R10.0 - ACUTE ABDOMEN Status: Acute Current Visit: Yes (10) Acute kidney failure SNOMED Code(s): 35823520 ICD Code: N17.9 - ACUTE KIDNEY FAILURE, UNSPECIFIED Status: Acute Current Visit: Yes (11) Chronic kidney disease, stage 3 SNOMED Code(s): 137497984 ICD Code: N18.3 - CHRONIC KIDNEY DISEASE, STAGE 3 (MODERATE) Status: Acute Current Visit: Yes (12) Hypothyroidism SNOMED Code(s): 46886298 ICD Code: E03.9 - HYPOTHYROIDISM, UNSPECIFIED Status: Acute Current Visit : Yes (13) [facility] resident SNOMED Code(s): 765966408 ICD Code: Z59.3 - PROBLEMS RELATED TO LIVING IN RESIDENTIAL INSTITUTION Status: Acute Current Visit: Yes (14) GERD (gastroesophageal reflux disease) SNOMED Code(s): 737006274 ICD Code: K21.9 - GASTRO-ESOPHAGEAL REFLUX DISEASE WITHOUT ESOPHAGITIS Status: Acute Current Visit: No Qualifiers: Esophagitis presence: with esophagitis Qualified Code(s): K21.0 - Gastro- esophageal reflux disease with esophagitis (15) Hypertension SNOMED Code(s): 92262488 ICD Code: I10 - ESSENTIAL (PRIMARY) HYPERTENSION Status: Acute Current Visit: No Qualifiers: Hypertension type: essential hypertension (16) Hypokalemia SNOMED Code(s): 89089048 ICD Code: E87.6 - HYPOKALEMIA Status: Acute Priority: High Current Visit: No (17) Vascular dementia SNOMED Code(s): 637514305 ICD Code: F01.50 - VASCULAR DEMENTIA WITHOUT BEHAVIORAL DISTURBANCE Status : Chronic Current Visit: No Qualifiers: Dementia behavioral disturbance: without behavioral disturbance Qualified Code(s): F01.50 - Vascular dementia without behavioral disturbance Problem List Initiated/Reviewed/Updated: Yes Assessment/Plan Comment:: Multifactorial sepsis Septic shock UTI/aspiration + healthcare/Necrotic bowel Acute abdomen Decreased oral intake and complaining of abdominal pain Abnormal CT --> surgery consulted Central line, arterial line and ETT placed PLAN - Start on Levaquin + Vancomycin and Zosyn - Surgery consult Acute kidney failure High anion gap metabolic acidosis Respiratory alkalosis Chronic kidney disease, stage 3 Hypokalemia PLAN - Monitor urine output - Jay insertion - Renally dosed medications - Avoid nephrotoxic agents as much as possible GERD (gastroesophageal reflux disease) No acute issues Needs stress ulcer prophylaxis due to ETT PLAN - Scheduled IV Pantoprazole Hypertension BP on admission stable Started dropping perioperatively requireing vasopressors PLAN - Hold home losartan Hypothyroidism No acute issues PLAN - Continue home meds once available Vascular dementia [facility] resident Requires 1 assist for bed mobility, transfer, dressing, personal hygiene and bathing 2 assist for ambulation Continent for bowel PROPHYLAXIS DVT- SCDs GI- pantoprazole CODE STATUS: FULL CODE DISPOSITION: Patient admitted to the ICU for vasopressors and mechanical ventilation. Will be taken to OR today. - Mortality Measure Prognosis:: Poor (ORUTSARARMIUT II score 32, 76% mortality risk) Arterial Line Insertion - Arterial Line Insertion Arterial Line Indication: hemodynamic monitoring Site: radial (R) Allens test: positive Prep: CDC/MBT Guidelines Gauge: 7Fr Ultrasound guided: No Secured with suture: Yes Dressing applied: by provider Complications: No Central Line Insertion - Central Line Insertion Site: internal jugular (R) Prep: CDC/MBT Guidelines Lumen: triple Gauge: 7Fr Local Anesthesia - Lidocaine (Xylocaine): 1% Plain Local Anesthetic Volume: 5cc Ultrasound guided: Yes Micropuncture kit used: Yes CL Complications: No Secured with suture: Yes Post placement confirmation: CXR, all ports aspirated, all ports flushed CXR post-procedure: no pneumothorax, no hemothorax Dressing applied: by provider Endotracheal Intubation - Endotracheal Intubation Time of Intubation: 15:50 ET Intubation Indication: Airway Protection Preparation: Balloon Tested Airway Assessment: Large Tongue Pre-Oxygenation: Assisted with BVM, 100% FiO2 Anesthesia Meds: Etomidate, Succinylcholine Placement: Orotracheal Cords Visualized: Grade 1 Number of Attempts: 1 Confirmed By: CO2 Indicator, Bilateral Breath Sounds, Chest Xray Tube Secured By: By RT
[2019-08-24] MEDS ORDERED: Norepinephrine 4 MG/4 ML SDV ONE (16:38)
[2019-08-24] MEDS: Norepinephrine 4 MG in Dextrose 5% in Water 246 ML IV SCH ×2 (16:47)
[2019-08-24] MEDS: Lactated Ringers 1,000 ML IV SCH (16:48)
--- NOTE | 2019-08-24 16:48 | PCM.PREANE ---
Preanesthetic Assessment - Procedure Proposed Procedure: EXPLORATORY LAP - Anesthesia/Transfusion/Family Hx Anesthesia History: Prior Anesthesia Without Reaction Transfusion History: Unknown - Review of Systems General: Fever Pulmonary: Shortness of Breath Gastrointestinal: Abdominal Pain, Nausea, Vomiting Other: Reports: Thyroid Problems - Physical Assessment NPO Status Date: 08/24/19 NPO Status Time: 16:27 Vital Signs: Last Vital Signs Temp 99.0 F 08/24/19 07:33 Pulse 105 H 08/24/19 07:33 Resp 24 H 08/24/19 07:33 BP 108/42 L 08/24/19 07:33 Pulse Ox 97 08/24/19 14:43 Height: 0.63 in Weight: 72.756 kg ASA Class: 4E - Lab Values: Laboratory Last Values WBC 24.71 K/mm3 (3.98-10.04) H 08/24/19 07:56 RBC 4.58 M/mm3 (3.98-5.22) 08/24/19 07:56 Hgb 12.7 gm/dl (11.2-15.7) 08/24/19 07:56 Hct 37.3 % (34.1-44.9) 08/24/19 07:56 MCV 81.4 fl (79.4-94.8) 08/24/19 07:56 MCH 27.7 pg (25.6-32.2) 08/24/19 07:56 MCHC 34.0 g/dl (32.2-35.5) 08/24/19 07:56 RDW Std Deviation 65.7 fL (36.4-46.3) H 08/24/19 07:56 Plt Count 341 K/mm3 (182-369) 08/24/19 07:56 MPV 10.0 fl (9.4-12.3) 08/24/19 07:56 Neut % (Auto) 85.7 % (34.0-71.1) H 08/24/19 07:56 Lymph % (Auto) 5.3 % (19.3-51.7) L 08/24/19 07:56 Hart % (Auto) 8.0 % (4.7-12.5) 08/24/19 07:56 Eos % (Auto) 0 (0.7-5.8) L 08/24/19 07:56 Baso % (Auto) 0.2 % (0.1-1.2) 08/24/19 07:56 Neut # (Auto) 21.18 K/mm3 (1.56-6.13) H 08/24/19 07:56 Lymph # (Auto) 1.31 K/mm3 (1.18-3.74) 08/24/19 07:56 Hart # (Auto) 1.97 K/mm3 (0.24-0.36) H 08/24/19 07:56 Eos # (Auto) 0.00 K/mm3 (0.04-0.36) L 08/24/19 07:56 Baso # (Auto) 0.04 K/mm3 (0.01-0.08) 08/24/19 07:56 Manual Slide Review Abnormal smear 08/24/19 07:56 Puncture Site Lt radial 08/24/19 13:25 ABG pH 7.30 (7.35-7.45) L 08/24/19 13:25 ABG pCO2 38.3 mmHg (35.0-45.0) 08/24/19 13:25 ABG pO2 55.0 mmHg (80.0-100.0) L 08/24/19 13:25 ABG HCO3 18.1 meq/L (22.0-26.0) L 08/24/19 13:25 ABG O2 Saturation 83.8 % (96.0-97.0) L 08/24/19 13:25 ABG Base Excess -7.4 (-2-2.0) L 08/24/19 13:25 Kerwin Test Positive 08/24/19 13:25 O2 Delivery Device Nasal cannula 08/24/19 13:25 Oxygen Flow Rate 6.0 08/24/19 13:25 FiO2 0.00 % (21.00-100.00) L 08/24/19 13:25 Sodium 143 mEq/L (136-145) 08/24/19 07:56 Potassium 3.3 mEq/L (3.5-5.1) L 08/24/19 07:56 Chloride 108 mEq/L (98-107) H 08/24/19 07:56 Carbon Dioxide 23 mEq/L (21-32) 08/24/19 07:56 Anion Gap 15.3 (5-15) H 08/24/19 07:56 BUN 29 mg/dL (7-18) H 08/24/19 07:56 Creatinine 1.6 mg/dL (0.55-1.02) H 08/24/19 07:56 Est Cr Clr Drug Dosing 21.26 mL/min 08/24/19 07:56 Estimated GFR (MDRD) 31 mL/min (>60) 08/24/19 07:56 BUN/Creatinine Ratio 18.1 (14-18) H 08/24/19 07:56 Glucose 104 mg/dL (83-115) 08/24/19 07:56 Lactic Acid 5.3 mmol/L (0.4-2.0) H* 08/24/19 12:16 Calcium 8.8 mg/dL (8.5-10.1) 08/24/19 07:56 Total Bilirubin 0.8 mg/dL (0.2-1.0) 08/24/19 07:56 AST 19 U/L (15-37) 08/24/19 07:56 ALT 11 U/L (14-59) L 08/24/19 07:56 Alkaline Phosphatase 56 U/L (46-116) 08/24/19 07:56 Total Protein 6.4 g/dl (6.4-8.2) 08/24/19 07:56 Albumin 2.7 g/dl (3.4-5.0) L 08/24/19 07:56 Globulin 3.7 gm/dL 08/24/19 07:56 Albumin/Globulin Ratio 0.7 (1-2) L 08/24/19 07:56 Lipase 67 U/L (73-393) L 08/24/19 07:56 Urine Color Yellow (Yellow) 08/24/19 10:30 Urine Appearance Slt cloudy (Clear) H 08/24/19 10:30 Urine pH 6.0 (5.0-8.0) 08/24/19 10:30 Ur Specific [place] 1.025 (1.005-1.030) 08/24/19 10:30 Urine Protein 3+ (Negative) H 08/24/19 10:30 Urine Glucose (UA) Negative (Negative) 08/24/19 10:30 Urine Ketones Negative (Negative) 08/24/19 10:30 Urine Occult Blood Trace-intact (Negative) H 08/24/19 10:30 Urine Nitrite Negative (Negative) 08/24/19 10:30 Urine Bilirubin Negative (Negative) 08/24/19 10:30 Urine Urobilinogen 0.2 (0.2-1.0) 08/24/19 10:30 Ur Leukocyte Esterase Trace (Negative) H 08/24/19 10:30 Urine RBC Not seen /hpf (0-5) 08/24/19 10:30 Urine WBC 10-20 /hpf (0-5) H 08/24/19 10:30 Ur Squamous Epith Cells Not seen /hpf (0-5) 08/24/19 10:30 Urine Bacteria Moderate /hpf (FEW) H 08/24/19 10:30 Urine Mucus Not seen /hpf (FEW) 08/24/19 10:30 - Allergies Allergies/Adverse Reactions: Allergies Allergy/AdvReac Type Severity Reaction Status Date / Time No Known Allergies Allergy Verified 07/06/19 18:43 - Acknowledgements Anesthesia Type Planned: General Anesthesia (patient is intubated in ICU) PreAnesthesia Questionnaire HEENT History: Reports: Impaired Vision, Macular Degeneration Other HEENT History: wears glasses Cardiovascular History: Reports: CAD, High Cholesterol, Hypertension Other Cardiovascular History: angioplasty, atherosclerotic heart disease Respiratory History: Reports: None, Other (See Below) (on the vent- sats were dropping) Gastrointestinal History: Reports: GERD Genitourinary History: Reports: None [employer] History: Reports: Musculoskeletal History: Reports: Osteoarthritis Other Musculoskeletal History: dorsalgia, generalized muscle weakness Neurological History: Reports: Alzheimers Disease Psychiatric History: Reports: Anxiety, Depression Endocrine/Metabolic History: Reports: Hypothyroidism Hematologic History: Reports: None Immunologic History: Reports: None Oncologic (Cancer) History: Reports: None Dermatologic History: Reports: None - Infectious Disease History Infectious Disease History: Reports: None - Past Surgical History Head Surgeries/Procedures: Reports: None HEENT Surgical History: Reports: Cataract Surgery Cardiovascular Surgical History: Reports: Percutaneous Transluminal Angioplasty GI Surgical History: Reports: Cholecystectomy, Colonoscopy Female Surgical History: Reports: Hysterectomy, Salpingo-Oophorectomy Musculoskeletal Surgical History: Reports: Knee Replacement - History Comment History Comment: Patient intubated in ICU- they were going to transfer her but decided too unstable. I phoned daughter and she is on her way up to the hospital. I talked to daughter about how severely ill she is. - HOME MEDS Home Medications: Home Meds Dicyclomine [Bentyl] 10 mg PO BID 11/19/17 [History] Omeprazole 20 mg PO DAILY 11/19/17 [History] amLODIPine [Norvasc] 10 mg PO DAILY 07/03/18 [History] Acetaminophen [Tylenol] 650 mg PO BID PRN 07/12/18 [History] Acetaminophen 650 mg PO TID 07/30/18 [History] Dicyclomine [Bentyl] 10 mg PO BID PRN 07/30/18 [History] Levothyroxine [Synthroid] 75 mcg PO DAILY 04/20/19 [History] guaiFENesin [Mucinex] 600 mg PO BID 04/20/19 [History] Bisacodyl 10 mg PO DAILY PRN 07/06/19 [History] Citalopram Hydrobromide [Celexa] 10 mg PO DAILY 07/06/19 [History] Furosemide [Lasix] 20 mg PO BID 07/06/19 [History] Losartan [Cozaar] 50 mg PO DAILY 07/06/19 [History] Potassium Chloride [Klor-Con M20] 40 meq PO DAILY 07/06/19 [History] - CURRENT (IN HOUSE) MEDS Current Meds: Current Medications Piperacillin Sod/Tazobactam (Sod 4.5 gm/ Sodium Chloride) 100 mls @ 25 mls/hr IV Q8H CHUY Last Admin: 08/24/19 16:16 Dose: 25 mls/hr Fentanyl 2,500 mcg/ Sodium (Chloride) 250 mls @ 7.27 mls/hr IV TITRATE CHUY; Protocol Stop: 08/26/19 15:30 Last Titration: 08/24/19 16:13 Dose: 0.96 mcg/kg/hr, 7 mls/hr Midazolam HCl 50 mg/ Sodium (Chloride) 50 mls @ 0.5 mls/hr IV TITRATE CHUY; Protocol Stop: 08/25/19 15:29 Last Titration: 08/24/19 15:57 Dose: 1 mg/hr, 1 mls/hr Lactated Ringer's (Ringers, Lactated) 1,000 mls @ 125 mls/hr IV ASDIRECTED CHUY Norepinephrine Bitartrate 4 mg (/ Dextrose/Water) 250 mls @ 7.5 mls/hr IV TITRATE CHUY; Protocol Pantoprazole Sodium (Protonix Iv) 40 mg IVPUSH DAILY CHUY Sodium Chloride (Saline Flush) 10 ml FLUSH ASDIRECTED PRN PRN Reason: Keep Vein Open Last Admin: 08/24/19 08:14 Dose: 10 ml Discontinued Medications Hydromorphone HCl (Dilaudid) 0.5 mg IVPUSH ONETIME ONE Stop: 08/24/19 07:28 Last Admin: 08/24/19 08:15 Dose: 0.5 mg Sodium Chloride (Normal Saline) 1,000 mls @ 1,000 mls/hr IV .BOLUS STA Stop: 08/24/19 08:25 Last Admin: 08/24/19 08:13 Dose: 1,000 mls/hr Cefepime HCl 2 gm/ Premix 50 mls @ 100 mls/hr IV ONETIME ONE Stop: 08/24/19 13:18 Last Admin: 08/24/19 13:19 Dose: 100 mls/hr Lactated Ringer's (Ringers, Lactated) 1,100 mls @ 1,000 mls/hr IV .BOLUS ONE Stop: 08/24/19 14:13 Last Admin: 08/24/19 13:40 Dose: 1,000 mls/hr Levofloxacin/Dextrose 750 mg/ (Premix) 150 mls @ 100 mls/hr IV ONETIME ONE Stop: 08/24/19 15:07 Last Admin: 08/24/19 16:03 Dose: 100 mls/hr Vancomycin HCl 1 gm/ Sodium (Chloride) 250 mls @ 250 mls/hr IV ONETIME ONE Stop: 08/24/19 14:37 Last Admin: 08/24/19 16:06 Dose: 250 mls/hr Norepinephrine Bitartrate (Levophed) Confirm Administered Dose 4 mg .ROUTE .STK- MED ONE Stop: 08/24/19 16:39 Ondansetron HCl (Zofran) 4 mg IVPUSH ONETIME ONE Stop: 08/24/19 07:27 Last Admin: 08/24/19 08:13 Dose: 4 mg
[2019-08-24] MEDS ORDERED: Sodium Chloride 0.9% 1,000 ML ONE (17:08)
--- NOTE | 2019-08-24 18:07 | PCM.PRNOTE ---
- Free Text/Narrative Note: Endotracheal Intubation Date: 08/24/19 Time: 15:50 Indication: Respiratory Distress Attending: Paige Frankel MD A time-out was completed verifying correct patient, procedure, site, positioning , and special equipment if applicable. The patient was placed in a flat position. Sedation was obtained using Etomidate 20mg and Succinylcholine 50. The patient was easily ventilated using an Ambu bag. The MAC 4 BLADE was used and inserted into the oropharynx at which time there was a Grade 1 view of the vocal cords. A 7-thai endotracheal tube was inserted and visualized going through the vocal cords. The stylette was removed. Colorimetric change was visualized on the CO2 meter. Breath sounds were heard in both lung [place] equally. The endotracheal tube was placed at 21 cm, measured at the teeth. A chest x-ray was ordered to assess for pneumothorax and verify endotrachealtube placement. Estimated Blood Loss: none The patient tolerated the procedure well and there were no complications.
--- NOTE | 2019-08-24 18:07 | PCM.PRNOTE ---
- Free Text/Narrative Note: ARTERIAL LINE PLACEMENT Date: 08/24/19 Indication: Hemodynamic monitoring Attending: Paige Frankel MD A time-out was completed verifying correct patient, procedure, site, positioning , and special equipment if applicable. Allens test was performed to ensure adequate perfusion. The patients right wrist was prepped and draped in sterile fashion. 1% Lidocaine was used to anesthetize the area. A 20G Arrow arterial line was introduced into the radial artery. The catheter was threaded over the guide wire and the needle was removed with appropriate pulsatile blood return. The catheter was then sutured in place to the skin and a sterile dressing applied. Perfusion to the extremity distal to the point of catheter insertion was checked and found to be adequate. Estimated Blood Loss: 5mL The patient tolerated the procedure well and there were no complications.
--- NOTE | 2019-08-24 18:07 | PCM.PRNOTE ---
- Free Text/Narrative Note: Central Line Placement Date: 08/24/19 Time: 15:00 Indication: Hemodynamic monitoring Attending: Paige Frankel MD A time-out was completed verifying correct patient, procedure, site, positioning , and special equipment if applicable. The patient was placed in a dependent position appropriate for central line placement based on the vein to be cannulated. The patients right neck was prepped and draped in sterile fashion. 1% Lidocaine was used to anesthetize the surrounding skin area. A triple lumen 7-[place] catheter was introduced into the the internal jugular using the Seldinger technique and under ultrasound guidance. The catheter was threaded smoothly over the guide wire and appropriate blood return was obtained. Each lumen of the catheter was evacuated of air and flushed with sterile saline. The catheter was then sutured in place to the skin and a sterile dressing applied. Perfusion to the extremity distal to the point of catheter insertion was checked and found to be adequate. Estimated Blood Loss: 5mL The patient tolerated the procedure well and there were no complications.
[2019-08-24] MEDS ORDERED: fentaNYL 250 MCG/5 ML SDV ONE (18:09)
--- NOTE | 2019-08-24 18:28 | CR ---
Chest: Supine portable view of the chest was obtained. Comparison: Prior chest x-ray performed earlier on the same day (2:49 PM). Right-sided central line remain stable in position with tip lying within the region of the intrahepatic portion of the inferior vena cava. Nasogastric tube is now seen. Tip of the nasogastric tube courses off the inferior edge of the film in the region of the stomach. Endotracheal tube is noted with tip lying approximately 2.4 cm above the lisette. Slightly improved atelectasis is seen within both lung bases from prior exam. No acute parenchymal change is seen. Heart size is within normal is for portable technique. Tortuous thoracic aorta is noted. Impression: 1. Tip of endotracheal tube located about 2.4 cm above the lisette. 2. Stable position of right sided central line. 3. Nasogastric tube which courses off the inferior edge of the film within the region of the stomach. 4. Improved bibasilar atelectasis from prior exam. Diagnostic code #3 This report was dictated in [place] Standard Time
[2019-08-24] MEDS ORDERED: Lactated Ringers 1,000 ML ONE ×4 (18:33→20:39)
[2019-08-24] MEDS ORDERED: ePHEDrine/Normal Saline 25 MG/5 ML Syringe ONE (21:31)
--- NOTE | 2019-08-24 22:02 | PCM.POSTAN ---
POST ANESTHESIA ASSESSMENT - MENTAL STATUS Mental Status: Other (sedated) - VITAL SIGNS Vital Signs: Last Vital Signs Temp 98.2 08/24/192149 Pulse 108 08/24/192149 Resp 12 08/24/192149 BP 124/49 08/24/192149 Pulse Ox 92% 08/24/192149 - RESPIRATORY Respiratory Status: Supplemental Oxygen - CARDIOVASCULAR CV Status: Pulse Rate WNL, Blood Pressure Stable - GASTROINTESTINAL GI Status: Other (NG to left nare in place and connected to LIS.) - POST OP HYDRATION Hydration Status: Adequate & Stable - OBSERVATIONS Free Text/Narrative:: Ventilator Settings: XJ=[id number] FIO2: 100% Rate=12 PEEP=6cmH20
[2019-08-25] MEDS: Lactated Ringers 1,000 ML IV SCH ×5 (01:00→20:58)
--- NOTE | 2019-08-25 01:39 | PCM48HPAN ---
Post Anesthesia Note - EVALUATION WITHIN 48HRS OF ANESTHETIC Vital Signs in Normal Range: Yes Patient Participated in Evaluation: No Respiratory Function Stable: No Airway Patent: No Cardiovascular Function Stable: No Hydration Status Stable: No Pain Control Satisfactory: No Nausea and Vomiting Control Satisfactory: No Vital Signs: Last Vital Signs Temp 36.4 C 08/24/19 23:46 Pulse 93 08/25/19 00:39 Resp 13 08/25/19 00:39 BP 101/51 L 08/25/19 00:39 Pulse Ox 93 L 08/25/19 00:40 - COMMENTS/OBSERVATIONS Free Text/Narrative:: Patient continues to be ventilated with recent ABG's still revealing metabolic acidosis. Vital signs remain stable with patient on norepinephrine drip. Patient stable at this time.
[2019-08-25] MEDS: Piperacillin/Tazobactam 4.5 GM in Sodium Chloride 0.9% 100 ML IV SCH ×3 (06:40→20:58)
[2019-08-25] MEDS ORDERED: Lactated Ringers 1,000 ML IV ONE (08:03)
[2019-08-25] MEDS: Pantoprazole 40 MG Vial IVPUSH SCH (08:19)
[2019-08-25] MEDS ORDERED: Heparin Sodium 5,000 Units/ML Vial IVPUSH ONE (13:26)
--- NOTE | 2019-08-25 13:50 | PCM.SURGPN ---
- General Info Date of Service: 08/25/19 POD#: 1 Post-Op Diagnosis: Bowel necrosis, PNA, UTI Functional Status: Reports: Pain Controlled - Review of Systems General: Reports: Other (intubated, sedated) - Patient Data Vitals - Most Recent: Last Vital Signs Temp 98.2 F 08/25/19 13:00 Pulse 109 H 08/25/19 13:00 Resp 13 08/25/19 13:00 BP 86/36 L 08/25/19 13:00 Pulse Ox 93 L 08/25/19 13:00 Weight - Most Recent: 72.756 kg I&O - Last 24 Hours: Intake & Output 08/24/19 08/25/19 08/25/19 22:59 06:59 14:59 Intake Total 1064 Output Total 200 215 34 Balance -200 849 -34 Lab Results Last 24 Hrs: Laboratory Results - last 24 hr 08/24/19 08/24/19 08/24/19 Range/Units 08:06 13:25 16:56 WBC (3.98-10.04) K/mm3 RBC (3.98-5.22) M/mm3 Hgb (11.2-15.7) gm/dl Hct (34.1-44.9) % MCV (79.4-94.8) fl MCH (25.6-32.2) pg MCHC (32.2-35.5) g/dl RDW Std Deviation (36.4-46.3) fL Plt Count (182-369) K/mm3 MPV (9.4-12.3) fl Neut % (Auto) (34.0-71.1) % Lymph % (Auto) (19.3-51.7) % [place] % (Auto) (4.7-12.5) % Eos % (Auto) (0.7-5.8) Baso % (Auto) (0.1-1.2) % Neut # (Auto) (1.56-6.13) K/mm3 Lymph # (Auto) (1.18-3.74) K/mm3 [place] # (Auto) (0.24-0.36) K/mm3 Eos # (Auto) (0.04-0.36) K/mm3 Baso # (Auto) (0.01-0.08) K/mm3 Manual Slide Review Puncture Site Lt radial Lt radial ABG pH 7.30 L 7.28 L (7.35-7.45) ABG pCO2 38.3 36.7 (35.0-45.0) mmHg ABG pO2 55.0 L 84.0 (80.0-100.0) mmHg ABG HCO3 18.1 L 16.7 L (22.0-26.0) meq/L ABG O2 Saturation 83.8 L 94.7 L (96.0-97.0) % ABG Base Excess -7.4 L -8.8 L (-2-2.0) Kerwin Test Positive Positive A-a Gradient mmHg O2 Delivery Device Nasal cannula Ventilator Oxygen Flow Rate 6.0 FiO2 0.00 L (21.00-100.00) % Tidal Volume 500.0 cc PEEP 6.0 cmH20 Sodium (136-145) mEq/L Potassium (3.5-5.1) mEq/L Chloride (98-107) mEq/L Carbon Dioxide (21-32) mEq/L Anion Gap (5-15) BUN (7-18) mg/dL Creatinine (0.55-1.02) mg/dL Est Cr Clr Drug Dosing Estimated GFR (MDRD) (>60) mL/min BUN/Creatinine Ratio (14-18) Glucose (83-115) mg/dL Lactic Acid (0.4-2.0) mmol/L Calcium (8.5-10.1) mg/dL Phosphorus (2.6-4.7) mg/dL Magnesium (1.8-2.4) mg/dl Total Bilirubin (0.2-1.0) mg/dL AST (15-37) U/L ALT (14-59) U/L Alkaline Phosphatase (46-116) U/L Total Protein (6.4-8.2) g/dl Albumin (3.4-5.0) g/dl Globulin gm/dL Albumin/Globulin Ratio (1-2) MRSA (PCR) Blood Type A POSITIVE Gel Antibody Screen Negative Crossmatch See Detail 08/24/19 08/24/19 08/24/19 Range/Units 18:05 22:05 22:25 WBC 14.09 H (3.98-10.04) K/mm3 RBC 4.09 (3.98-5.22) M/mm3 Hgb 11.2 D (11.2-15.7) gm/dl Hct 34.7 (34.1-44.9) % MCV 84.8 D (79.4-94.8) fl MCH 27.4 (25.6-32.2) pg MCHC 32.3 (32.2-35.5) g/dl RDW Std Deviation 71.5 H (36.4-46.3) fL Plt Count 286 (182-369) K/mm3 MPV 10.1 (9.4-12.3) fl Neut % (Auto) 85.7 H (34.0-71.1) % Lymph % (Auto) 10.9 L (19.3-51.7) % [place] % (Auto) 2.4 L (4.7-12.5) % Eos % (Auto) 0.1 L (0.7-5.8) Baso % (Auto) 0.1 (0.1-1.2) % Neut # (Auto) 12.06 H (1.56-6.13) K/mm3 Lymph # (Auto) 1.54 (1.18-3.74) K/mm3 [place] # (Auto) 0.34 (0.24-0.36) K/mm3 Eos # (Auto) 0.02 L (0.04-0.36) K/mm3 Baso # (Auto) 0.02 (0.01-0.08) K/mm3 Manual Slide Review Abnormal smear Puncture Site Art line ABG pH 7.20 L (7.35-7.45) ABG pCO2 47.5 H (35.0-45.0) mmHg ABG pO2 77.0 L (80.0-100.0) mmHg ABG HCO3 17.7 L (22.0-26.0) meq/L ABG O2 Saturation 92.5 L (96.0-97.0) % ABG Base Excess -9.7 L (-2-2.0) Kerwin Test A-a Gradient 579 mmHg O2 Delivery Device Ventilator Oxygen Flow Rate FiO2 100.00 (21.00-100.00) % Tidal Volume 500.0 cc PEEP 6.0 cmH20 Sodium (136-145) mEq/L Potassium (3.5-5.1) mEq/L Chloride (98-107) mEq/L Carbon Dioxide (21-32) mEq/L Anion Gap (5-15) BUN (7-18) mg/dL Creatinine (0.55-1.02) mg/dL Est Cr Clr Drug Dosing Estimated GFR (MDRD) (>60) mL/min BUN/Creatinine Ratio (14-18) Glucose (83-115) mg/dL Lactic Acid (0.4-2.0) mmol/L Calcium (8.5-10.1) mg/dL Phosphorus (2.6-4.7) mg/dL Magnesium (1.8-2.4) mg/dl Total Bilirubin (0.2-1.0) mg/dL AST (15-37) U/L ALT (14-59) U/L Alkaline Phosphatase (46-116) U/L Total Protein (6.4-8.2) g/dl Albumin (3.4-5.0) g/dl Globulin gm/dL Albumin/Globulin Ratio (1-2) MRSA (PCR) Negative Blood Type Gel Antibody Screen Crossmatch 08/24/19 08/24/19 08/25/19 Range/Units 22:25 22:25 04:45 WBC 16.34 H (3.98-10.04) K/mm3 RBC 3.89 L (3.98-5.22) M/mm3 Hgb 10.6 L (11.2-15.7) gm/dl Hct 32.7 L (34.1-44.9) % MCV 84.1 (79.4-94.8) fl MCH 27.2 (25.6-32.2) pg MCHC 32.4 (32.2-35.5) g/dl RDW Std Deviation 70.7 H (36.4-46.3) fL Plt Count 262 (182-369) K/mm3 MPV 10.3 (9.4-12.3) fl Neut % (Auto) 84.7 H (34.0-71.1) % Lymph % (Auto) 9.7 L (19.3-51.7) % [place] % (Auto) 3.9 L (4.7-12.5) % Eos % (Auto) 0.6 L (0.7-5.8) Baso % (Auto) 0.2 (0.1-1.2) % Neut # (Auto) 13.84 H (1.56-6.13) K/mm3 Lymph # (Auto) 1.59 (1.18-3.74) K/mm3 [place] # (Auto) 0.64 H (0.24-0.36) K/mm3 Eos # (Auto) 0.09 (0.04-0.36) K/mm3 Baso # (Auto) 0.03 (0.01-0.08) K/mm3 Manual Slide Review Abnormal smear Puncture Site ABG pH (7.35-7.45) ABG pCO2 (35.0-45.0) mmHg ABG pO2 (80.0-100.0) mmHg ABG HCO3 (22.0-26.0) meq/L ABG O2 Saturation (96.0-97.0) % ABG Base Excess (-2-2.0) Kerwin Test A-a Gradient mmHg O2 Delivery Device Oxygen Flow Rate FiO2 (21.00-100.00) % Tidal Volume cc PEEP cmH20 Sodium 143 (136-145) mEq/L Potassium 4.1 (3.5-5.1) mEq/L Chloride 109 H (98-107) mEq/L Carbon Dioxide 20 L (21-32) mEq/L Anion Gap 18.1 H (5-15) BUN 29 H (7-18) mg/dL Creatinine 1.5 H (0.55-1.02) mg/dL Est Cr Clr Drug Dosing TNP Estimated GFR (MDRD) 33 (>60) mL/min BUN/Creatinine Ratio 19.3 H (14-18) Glucose 99 (83-115) mg/dL Lactic Acid 5.6 H* (0.4-2.0) mmol/L Calcium 7.8 L (8.5-10.1) mg/dL Phosphorus 5.0 H (2.6-4.7) mg/dL Magnesium 1.4 L (1.8-2.4) mg/dl Total Bilirubin 0.6 (0.2-1.0) mg/dL AST 60 H (15-37) U/L ALT 33 (14-59) U/L Alkaline Phosphatase 42 L (46-116) U/L Total Protein 4.9 L (6.4-8.2) g/dl Albumin 1.8 L (3.4-5.0) g/dl Globulin 3.1 gm/dL Albumin/Globulin Ratio 0.6 L (1-2) MRSA (PCR) Blood Type Gel Antibody Screen Crossmatch 08/25/19 08/25/19 08/25/19 Range/Units 04:45 04:45 06:17 WBC (3.98-10.04) K/mm3 RBC (3.98-5.22) M/mm3 Hgb (11.2-15.7) gm/dl Hct (34.1-44.9) % MCV (79.4-94.8) fl MCH (25.6-32.2) pg MCHC (32.2-35.5) g/dl RDW Std Deviation (36.4-46.3) fL Plt Count (182-369) K/mm3 MPV (9.4-12.3) fl Neut % (Auto) (34.0-71.1) % Lymph % (Auto) (19.3-51.7) % [place] % (Auto) (4.7-12.5) % Eos % (Auto) (0.7-5.8) Baso % (Auto) (0.1-1.2) % Neut # (Auto) (1.56-6.13) K/mm3 Lymph # (Auto) (1.18-3.74) K/mm3 [place] # (Auto) (0.24-0.36) K/mm3 Eos # (Auto) (0.04-0.36) K/mm3 Baso # (Auto) (0.01-0.08) K/mm3 Manual Slide Review Puncture Site art line ABG pH 7.31 L (7.35-7.45) ABG pCO2 34.7 L (35.0-45.0) mmHg ABG pO2 70.0 L (80.0-100.0) mmHg ABG HCO3 17.1 L (22.0-26.0) meq/L ABG O2 Saturation 93.3 L (96.0-97.0) % ABG Base Excess -7.9 L (-2-2.0) Kerwin Test Positive A-a Gradient 602 mmHg O2 Delivery Device Ventilator Oxygen Flow Rate FiO2 0.00 L (21.00-100.00) % Tidal Volume 500.0 cc PEEP 6.0 cmH20 Sodium 140 (136-145) mEq/L Potassium 4.0 (3.5-5.1) mEq/L Chloride 108 H (98-107) mEq/L Carbon Dioxide 19 L (21-32) mEq/L Anion Gap 17.0 H (5-15) BUN 31 H (7-18) mg/dL Creatinine 1.7 H (0.55-1.02) mg/dL Est Cr Clr Drug Dosing 20.01 Estimated GFR (MDRD) 29 (>60) mL/min BUN/Creatinine Ratio 18.2 H (14-18) Glucose 86 (83-115) mg/dL Lactic Acid 4.3 H* (0.4-2.0) mmol/L Calcium 7.4 L (8.5-10.1) mg/dL Phosphorus 4.8 H (2.6-4.7) mg/dL Magnesium 1.4 L (1.8-2.4) mg/dl Total Bilirubin (0.2-1.0) mg/dL AST (15-37) U/L ALT (14-59) U/L Alkaline Phosphatase (46-116) U/L Total Protein (6.4-8.2) g/dl Albumin (3.4-5.0) g/dl Globulin gm/dL Albumin/Globulin Ratio (1-2) MRSA (PCR) Blood Type Gel Antibody Screen Crossmatch 08/25/19 Range/Units 07:40 WBC (3.98-10.04) K/mm3 RBC (3.98-5.22) M/mm3 Hgb (11.2-15.7) gm/dl Hct (34.1-44.9) % MCV (79.4-94.8) fl MCH (25.6-32.2) pg MCHC (32.2-35.5) g/dl RDW Std Deviation (36.4-46.3) fL Plt Count (182-369) K/mm3 MPV (9.4-12.3) fl Neut % (Auto) (34.0-71.1) % Lymph % (Auto) (19.3-51.7) % [place] % (Auto) (4.7-12.5) % Eos % (Auto) (0.7-5.8) Baso % (Auto) (0.1-1.2) % Neut # (Auto) (1.56-6.13) K/mm3 Lymph # (Auto) (1.18-3.74) K/mm3 [place] # (Auto) (0.24-0.36) K/mm3 Eos # (Auto) (0.04-0.36) K/mm3 Baso # (Auto) (0.01-0.08) K/mm3 Manual Slide Review Puncture Site ABG pH (7.35-7.45) ABG pCO2 (35.0-45.0) mmHg ABG pO2 (80.0-100.0) mmHg ABG HCO3 (22.0-26.0) meq/L ABG O2 Saturation (96.0-97.0) % ABG Base Excess (-2-2.0) Kerwin Test A-a Gradient mmHg O2 Delivery Device Oxygen Flow Rate FiO2 (21.00-100.00) % Tidal Volume cc PEEP cmH20 Sodium (136-145) mEq/L Potassium (3.5-5.1) mEq/L Chloride (98-107) mEq/L Carbon Dioxide (21-32) mEq/L Anion Gap (5-15) BUN (7-18) mg/dL Creatinine (0.55-1.02) mg/dL Est Cr Clr Drug Dosing Estimated GFR (MDRD) (>60) mL/min BUN/Creatinine Ratio (14-18) Glucose (83-115) mg/dL Lactic Acid 4.3 H* (0.4-2.0) mmol/L Calcium (8.5-10.1) mg/dL Phosphorus (2.6-4.7) mg/dL Magnesium (1.8-2.4) mg/dl Total Bilirubin (0.2-1.0) mg/dL AST (15-37) U/L ALT (14-59) U/L Alkaline Phosphatase (46-116) U/L Total Protein (6.4-8.2) g/dl Albumin (3.4-5.0) g/dl Globulin gm/dL Albumin/Globulin Ratio (1-2) MRSA (PCR) Blood Type Gel Antibody Screen Crossmatch Gerardo Results Last 24 Hrs: Microbiology 08/24/19 12:16 Aerobic Blood Culture - Preliminary Blood - Venous NO GROWTH AFTER 1 DAY Anaerobic Blood Culture - Preliminary NO GROWTH AFTER 1 DAY 08/24/19 12:24 Aerobic Blood Culture - Preliminary Blood - Venous - Lab Draw NO GROWTH AFTER 1 DAY Anaerobic Blood Culture - Preliminary NO GROWTH AFTER 1 DAY 08/24/19 11:42 Urine Culture - Preliminary Urine, Catheterized Gram Negative Rods Med Orders - Current: Current Medications Piperacillin Sod/Tazobactam (Sod 4.5 gm/ Sodium Chloride) 100 mls @ 25 mls/hr IV Q8H [facility] Last Admin: 08/25/19 13:11 Dose: 25 mls/hr Fentanyl 2,500 mcg/ Sodium (Chloride) 250 mls @ 7.27 mls/hr IV TITRATE [facility]UY; Protocol Stop: 08/26/19 15:30 Last Titration: 08/25/19 02:29 Dose: 1.37 mcg/kg/hr, 10 mls/hr Midazolam HCl 50 mg/ Sodium (Chloride) 50 mls @ 0.5 mls/hr IV TITRATE CHUY; Protocol Stop: 08/25/19 15:29 Last Titration: 08/25/19 11:57 Dose: 2 mg/hr, 2 mls/hr Norepinephrine Bitartrate 4 mg (/ Dextrose/Water) 250 mls @ 7.5 mls/hr IV TITRATE CHUY; Protocol Last Titration: 08/25/19 11:06 Dose: Infused Lactated Ringer's (Ringers, Lactated) 1,000 mls @ 250 mls/hr IV ASDIRECTED [facility]UY Last Admin: 08/25/19 12:47 Dose: 250 mls/hr Heparin Sodium/Dextrose (Heparin 25,000 Units In D5w 500 Ml) 25,000 units in 500 mls @ 26.192 mls/hr IV TITRATE [facility]UY; Protocol Pantoprazole Sodium (Protonix Iv) 40 mg IVPUSH DAILY [facility]UY Last Admin: 08/25/19 08:19 Dose: 40 mg Sodium Chloride (Saline Flush) 10 ml FLUSH ASDIRECTED PRN PRN Reason: Keep Vein Open Last Admin: 08/24/19 08:14 Dose: 10 ml Discontinued Medications Ephedrine Sulfate (Ephedrine In Ns) Confirm Administered Dose 25 mg .ROUTE .STK- MED ONE Stop: 08/24/19 21:32 Etomidate (Amidate) 40 mg IVPUSH .STK-MED ONE Stop: 08/24/19 15:01 Fentanyl (Sublimaze) Confirm Administered Dose 250 mcg .ROUTE .STK-MED ONE Stop: 08/24/19 18:10 Heparin Sodium (Porcine) (Heparin Sodium) 5,000 units IVPUSH .BOLUS ONE Stop: 08/25/19 13:27 Hydromorphone HCl (Dilaudid) 0.5 mg IVPUSH ONETIME ONE Stop: 08/24/19 07:28 Last Admin: 08/24/19 08:15 Dose: 0.5 mg Sodium Chloride (Normal Saline) 1,000 mls @ 1,000 mls/hr IV .BOLUS STA Stop: 08/24/19 08:25 Last Admin: 08/24/19 08:13 Dose: 1,000 mls/hr Cefepime HCl 2 gm/ Premix 50 mls @ 100 mls/hr IV ONETIME ONE Stop: 08/24/19 13:18 Last Admin: 08/24/19 13:19 Dose: 100 mls/hr Lactated Ringer's (Ringers, Lactated) 1,100 mls @ 1,000 mls/hr IV .BOLUS ONE Stop: 08/24/19 14:13 Last Admin: 08/24/19 13:40 Dose: 1,000 mls/hr Levofloxacin/Dextrose 750 mg/ (Premix) 150 mls @ 100 mls/hr IV ONETIME ONE Stop: 08/24/19 15:07 Last Admin: 08/24/19 16:03 Dose: 100 mls/hr Vancomycin HCl 1 gm/ Sodium (Chloride) 250 mls @ 250 mls/hr IV ONETIME ONE Stop: 08/24/19 14:37 Last Admin: 08/24/19 16:06 Dose: 250 mls/hr Lactated Ringer's (Ringers, Lactated) 1,000 mls @ 125 mls/hr IV ASDIRECTED [facility] Last Admin: 08/25/19 01:00 Dose: 125 mls/hr Sodium Chloride (Normal Saline) Confirm Administered Dose 1,000 mls @ as directed .ROUTE .STK-MED ONE Stop: 08/24/19 17:09 Last Admin: 08/24/19 17:16 Dose: 1 mls/hr Lactated Ringer's (Ringers, Lactated) Confirm Administered Dose 1,000 mls @ as directed .ROUTE .STK-MED ONE Stop: 08/24/19 18:34 Lactated Ringer's (Ringers, Lactated) Confirm Administered Dose 1,000 mls @ as directed .ROUTE .STK-MED ONE Stop: 08/24/19 19:10 Lactated Ringer's (Ringers, Lactated) Confirm Administered Dose 1,000 mls @ as directed .ROUTE .STK-MED ONE Stop: 08/24/19 19:46 Lactated Ringer's (Ringers, Lactated) Confirm Administered Dose 1,000 mls @ as directed .ROUTE .STK-MED ONE Stop: 08/24/19 20:40 Lactated Ringer's (Ringers, Lactated) 1,000 mls @ 999 mls/hr IV .BOLUS ONE Stop: 08/25/19 09:03 Last Admin: 08/25/19 08:10 Dose: 999 mls/hr Norepinephrine Bitartrate (Levophed) Confirm Administered Dose 4 mg .ROUTE .STK- MED ONE Stop: 08/24/19 16:39 Last Admin: 08/24/19 16:47 Dose: Not Given Ondansetron HCl (Zofran) 4 mg IVPUSH ONETIME ONE Stop: 08/24/19 07:27 Last Admin: 08/24/19 08:13 Dose: 4 mg Succinylcholine Chloride (Quelicin) 200 mg .ROUTE .STK-MED ONE Stop: 08/24/19 15:01 Vecuronium [place] (Vecuronium) Confirm Administered Dose 10 mg .ROUTE .STK-MED ONE Stop: 08/24/19 20:13 - Exam Wound/Incisions: Dressing Dry and Intact General: Obtunded, Other (intubated and sedated) GI/Abdominal Exam: Soft Skin: Warm Sepsis Event Note - Evaluation Sepsis Screening Result: Possible Severe Sepsis Risk - Focused Exam Vital Signs: Vital Signs Temp Pulse Pulse Resp BP BP BP 08/25/19 13:00 98.2 F 109 H 13 86/36 L 75/54 L 08/25/19 12:00 102 H 15 118/50 L 91/56 L 08/25/19 11:38 08/25/19 11:05 80/57 L 08/25/19 11:00 106 H 15 73/36 L 08/25/19 10:00 113/57 L 08/25/19 09:00 118/60 08/25/19 08:15 08/25/19 08:00 98.9 F 12 94/46 L 08/25/19 07:26 20 100/46 L 08/25/19 06:00 108 H 12 84/44 L 08/25/19 05:29 107 H 12 85/46 L 08/25/19 05:01 105 H 12 08/25/19 04:23 08/25/19 04:22 103 H 12 92/50 L 08/25/19 03:01 101 H 13 98/49 L 08/25/19 03:00 100 15 08/25/19 02:50 08/25/19 02:01 95 14 110/52 L 08/25/19 02:00 95 13 Pulse Ox Pulse Ox 08/25/19 13:00 93 L 08/25/19 12:00 97 08/25/19 11:38 98 08/25/19 11:05 08/25/19 11:00 93 L 08/25/19 10:00 08/25/19 09:00 08/25/19 08:15 93 L 08/25/19 08:00 92 L 08/25/19 07:26 92 L 08/25/19 06:00 93 L 08/25/19 05:29 94 L 08/25/19 05:01 93 L 08/25/19 04:23 93 L 08/25/19 04:22 93 L 08/25/19 03:01 93 L 08/25/19 03:00 93 L 08/25/19 02:50 94 L 08/25/19 02:01 95 08/25/19 02:00 95 Date Exam was Performed: 08/25/19 Time Exam was Performed: 13:38 - Problem List Review Problem List Initiated/Reviewed/Updated: No - My Orders Last 24 Hours: Active Orders 24 hr Category Date Time Status Patient Status [ADT] Routine ADT 08/24/19 14:07 Active Antiembolic Devices [RC] BID Care 08/24/19 16:23 Active Cardiac Monitoring [RC] CONTINUOUS Care 08/24/19 16:22 Active Central Line Assessment [RC] Q4HR Care 08/24/19 16:17 Active Height and Weight [RC] 0400 Care 08/24/19 16:17 Active Insert Jay Catheter [Insert Urinary Catheter] [OM.PC] Care 08/24/19 16:00 Ordered Q24H Intake and Output [RC] Q2HR Care 08/24/19 16:21 Active Notify Provider [RC] .ASDIRECTED Care 08/24/19 21:05 Active Oxygen Therapy [RC] PRN Care 08/24/19 16:17 Active Pulse Oximetry [RC] CONTINUOUS Care 08/24/19 16:22 Active RT Ventilator, Adult [RC] ASDIRECTED Care 08/24/19 16:46 Active Urinary Catheter Assessment [RC] Q4HR Care 08/24/19 16:17 Active VTE/DVT Education [RC] BID Care 08/24/19 16:17 Active Vital Signs [RC] Q1HR Care 08/24/19 16:17 Active Consult to Case Management/Kitchen Assistant [CONS] Cons 08/24/19 16:17 Active Routine Consult to Line Mechanic [CONS] Routine Cons 08/24/19 16:17 Active OT Evaluation and Treatment [CONS] Routine Cons 08/24/19 16:17 Active PT Evaluation and Treatment [CONS] Routine Cons 08/24/19 16:17 Active CULTURE RESPIRATORY + SMEAR [RM] Routine Lab 08/24/19 16:17 Ordered INR,PT,PROTHROMBIN TIME [COAG] Routine Lab 08/25/19 15:32 Ordered Heparin Sodium/D5W [Heparin 25,000 Units in D5W 500 ML] Med 08/25/19 14:00 Ordered 25,000 units in 500 ml IV TITRATE Lactated Ringers [Ringers, Lactated] 1,000 ml Med 08/25/19 08:15 Active IV ASDIRECTED Midazolam [Versed 5 MG/ML] 50 mg Med 08/24/19 15:30 Active Sodium Chloride 0.9% [Normal Saline] 40 ml IV TITRATE Norepinephrine [Levophed] 4 mg Med 08/24/19 16:45 Active Dextrose 5% in Water 246 ml IV TITRATE Pantoprazole [ProTONIX IV] Med 08/25/19 09:00 Active 40 mg IVPUSH DAILY Piperacillin/Tazobactam [Piperacil-Tazobact] 4.5 gm Med 08/24/19 13:45 Active Sodium Chloride 0.9% [Normal Saline] 100 ml IV Q8H fentaNYL [Sublimaze] 2,500 mcg Med 08/24/19 15:30 Active Sodium Chloride 0.9% [Normal Saline] 200 ml IV TITRATE Central Venous Line Insertion [OM.PC] Routine Oth 08/24/19 16:17 Ordered Monitor Central Venous Pressure [OM.PC] Stat Oth 08/24/19 16:17 Ordered Nasogastric Orogastric Tube Insertion [OM.PC] Urgent Oth 08/24/19 16:22 Ordered Schedule Procedure [COMM] Urgent Oth 08/24/19 17:30 Ordered Sequential Compression Device [OM.PC] Per Unit Routine Oth 08/24/19 16:22 Ordered Resuscitation Status Routine Resus Stat 08/24/19 16:17 Ordered Medication Orders Piperacillin Sod/Tazobactam (Sod 4.5 gm/ Sodium Chloride) 100 mls @ 25 mls/hr IV Q8H CHUY Last Admin: 08/25/19 13:11 Dose: 25 mls/hr Infusion: 08/25/19 10:40 Dose: 25 mls/hr Admin: 08/25/19 06:40 Dose: 25 mls/hr Infusion: 08/25/19 02:48 Dose: 25 mls/hr Admin: 08/24/19 22:48 Dose: 25 mls/hr Infusion: 08/24/19 20:16 Dose: 25 mls/hr Admin: 08/24/19 16:16 Dose: 25 mls/hr Fentanyl 2,500 mcg/ Sodium (Chloride) 250 mls @ 7.27 mls/hr IV TITRATE CHUY; Protocol Stop: 08/26/19 15:30 Last Titration: 08/25/19 02:29 Dose: 1.37 mcg/kg/hr, 10 mls/hr Titration: 08/24/19 23:18 Dose: 0.68 mcg/kg/hr, 5 mls/hr Titration: 08/24/19 17:45 Dose: 0 mcg/kg/hr, 0 mls/hr Titration: 08/24/19 16:13 Dose: 0.96 mcg/kg/hr, 7 mls/hr Admin: 08/24/19 16:12 Dose: 1 mcg/kg/hr, 7.27 mls/hr Midazolam HCl 50 mg/ Sodium (Chloride) 50 mls @ 0.5 mls/hr IV TITRATE CHUY; Protocol Stop: 08/25/19 15:29 Last Titration: 08/25/19 11:57 Dose: 2 mg/hr, 2 mls/hr Titration: 08/25/19 11:12 Dose: 1 mg/hr, 1 mls/hr Titration: 08/25/19 10:48 Dose: 2 mg/hr, 2 mls/hr Titration: 08/25/19 07:42 Dose: 0 mg/hr, 0 mls/hr Titration: 08/25/19 06:31 Dose: 1 mg/hr, 1 mls/hr Titration: 08/25/19 03:00 Dose: 2 mg/hr, 2 mls/hr Titration: 08/24/19 17:45 Dose: 0 mg/hr, 0 mls/hr Titration: 08/24/19 17:39 Dose: 2 mg/hr, 2 mls/hr Titration: 08/24/19 15:57 Dose: 1 mg/hr, 1 mls/hr Admin: 08/24/19 15:56 Dose: 0.5 mg/hr, 0.5 mls/hr Norepinephrine Bitartrate 4 mg (/ Dextrose/Water) 250 mls @ 7.5 mls/hr IV TITRATE CHUY; Protocol Last Titration: 08/25/19 11:06 Dose: 11 mcg/min, 41.25 mls/hr Titration: 08/25/19 07:51 Dose: 7 mcg/min, 26.25 mls/hr Titration: 08/25/19 06:56 Dose: 5 mcg/min, 18.75 mls/hr Titration: 08/24/19 22:16 Dose: 4 mcg/min, 15 mls/hr Admin: 08/24/19 16:47 Dose: 2 mcg/min, 7.5 mls/hr Lactated Ringer's (Ringers, Lactated) 1,000 mls @ 250 mls/hr IV ASDIRECTED CHUY Last Admin: 08/25/19 12:47 Dose: 250 mls/hr Infusion: 08/25/19 12:36 Dose: 250 mls/hr Admin: 08/25/19 08:36 Dose: 250 mls/hr Heparin Sodium/Dextrose (Heparin 25,000 Units In D5w 500 Ml) 25,000 units in 500 mls @ 26.192 mls/hr IV TITRATE CHUY; Protocol Pantoprazole Sodium (Protonix Iv) 40 mg IVPUSH DAILY CHUY Last Admin: 08/25/19 08:19 Dose: 40 mg Sodium Chloride (Saline Flush) 10 ml FLUSH ASDIRECTED PRN PRN Reason: Keep Vein Open Last Admin: 08/24/19 08:14 Dose: 10 ml - Assessment Assessment (Free Text/Narrative):: Patient presented with abdominal pain. Was found to have pneumonia, UTI and necrotic small bowel. She is POD1 s/p ex lap, distal small bowel resection, right hemicolectomy with ileorectal anastomosis. Blood flow to the bowel was present by doppler signal but not palpable. SMA had a biphasic doppler signal but not palpable. I suspect that she had an event (hypotension, thrombotic, embolic) that led to hypoperfusion of her distal bowel leading to ischemia and necrosis. The area of susan necrosis was well demarcated and has been removed. - Plan Plan (Free Text/Narrative):: - Continue ICU management with NGT, IVF, NPO, and trending lactate - Start heparin drip for anticoagulation for concern possible thrombotic/ embolic event that may have cause bowel ischemia
[2019-08-25] MEDS: fentaNYL 2,500 MCG in Sodium Chloride 0.9% 200 ML IV SCH (14:20)
[2019-08-25] MEDS: Norepinephrine 4 MG in Dextrose 5% in Water 246 ML IV SCH ×2 (14:28)
--- NOTE | 2019-08-25 14:32 | PCM.SN ---
- Free Text/Narrative Note: Anesthesia Note: Patient remains in critical state. Norepinephrine drip increased from 4mcg/min to 15mcg/min, since last evening. Anesthesia discussed with Dr. Frankel, and awaiting for faimily members to discuss code status update. Patient currently being sedated with versed IV. Ventilator settings managed by Dr. Frankel. Thank you, Aishwarya ESCOBAR
[2019-08-25] MEDS: Heparin Sodium/D5W 25,000 UNITS/500 ML BAG IV SCH (15:02)
[2019-08-25] MEDS: DOPamine/Dextrose 5%-Water 400 MG/250 ML BAG IV SCH ×2 (15:16→23:15)
[2019-08-25] MEDS ORDERED: Lactated Ringers 2,000 ML IV ONE ×2 (15:49→15:52)
[2019-08-25] MEDS: Lactated Ringers 1,000 ML IV ONE ×2 (16:19→16:48)
[2019-08-25] MEDS: Midazolam 50 MG in Sodium Chloride 0.9% 40 ML IV SCH (18:10)
[2019-08-25] MEDS ORDERED: Bumetanide 1 MG/4 ML MDV IVPUSH ONE (22:48)
[2019-08-26] MEDS: Lactated Ringers 1,000 ML IV SCH ×4 (01:30→10:17)
[2019-08-26] MEDS: DOPamine/Dextrose 5%-Water 400 MG/250 ML BAG IV SCH (05:12)
[2019-08-26] MEDS: Piperacillin/Tazobactam 4.5 GM in Sodium Chloride 0.9% 100 ML IV SCH ×2 (05:13→18:10)
[2019-08-26] MEDS: Albumin 25% 12.5 GM/50 ML BAG IV SCH ×3 (06:19→23:02)
[2019-08-26] MEDS: Norepinephrine 4 MG in Dextrose 5% in Water 246 ML IV SCH ×4 (06:38→12:48)
[2019-08-26] MEDS ORDERED: Magnesium Sulfate/Water 4 GM in Premix Bag 1 BAG IV ONE (07:30)
--- NOTE | 2019-08-26 08:06 | PCM.SN ---
- Free Text/Narrative Note: Reassessment of Fluid Status After Fluid Bolus 15:17 HR: 89x' BP: 127/63(83) SatO2: 99% RR: 22x' 15:30 HR: 90x' BP: 105/63 (74) SatO2: 94% RR: 20x'
--- NOTE | 2019-08-26 08:06 | PCM.PN ---
- General Info Date of Service: 08/25/19 Admission Dx/Problem (Free Text): Decreased urine output Norepinephrine drip Fentanyl and versed for sedation LR for fluid repletion Levaquin, vancomycin and Zosyn - Patient Data Vitals - Most Recent: Last Vital Signs Temp 97.6 F 08/26/19 04:00 Pulse 88 08/26/19 08:01 Resp 14 08/26/19 08:01 BP 120/47 L 08/26/19 08:01 Pulse Ox 99 08/26/19 08:01 Weight - Most Recent: 78.471 kg - Exam General: Sedated HEENT: Pupils Equal, Pupils Reactive Neck: Trachea Midline. No: Lymphadenopathy Lungs: Crackles, Rales. No: Rhonchi, Rub, Stridor, Wheezing Cardiovascular: Regular Rate, Regular Rhythm. No: Murmurs, Gallops, Rubs GI/Abdominal Exam: Other (No bowel sounds, non distended, soft, not rigid, wound dressing clean, wound with adequate healing) Extremities: Pedal Edema, Slow Capillary Refill Wound/Incisions: Healing Well Sepsis Event Note - Evaluation Sepsis Screening Result: Severe Sepsis Risk - Focused Exam Vital Signs: Vital Signs Temp Pulse Resp BP Pulse Ox Pulse Ox 08/26/19 08:01 88 14 120/47 L 99 08/26/19 08:00 88 14 99 08/26/19 07:45 89 14 100 08/26/19 07:30 93 14 99 08/26/19 07:15 93 16 99 08/26/19 07:01 95 14 144/62 H 100 08/26/19 07:00 92 14 100 08/26/19 06:49 99 08/26/19 06:45 95 14 99 08/26/19 06:30 91 14 100 08/26/19 06:15 94 14 100 08/26/19 06:01 95 14 141/64 H 100 08/26/19 06:00 95 14 100 08/26/19 05:45 92 14 100 08/26/19 05:30 91 14 99 08/26/19 05:15 92 14 99 08/26/19 05:01 93 14 142/52 H 100 08/26/19 05:00 92 14 99 08/26/19 04:45 93 14 100 08/26/19 04:30 94 14 100 08/26/19 04:20 100 08/26/19 04:15 95 14 100 08/26/19 04:01 94 14 130/49 L 99 08/26/19 04:00 97.6 F 94 14 99 08/26/19 03:45 95 14 100 08/26/19 03:30 95 100 08/26/19 03:15 96 100 08/26/19 03:01 97 116/41 L 99 08/26/19 03:00 97 99 08/26/19 02:45 98 100 08/26/19 02:35 100 08/26/19 02:30 97 100 08/26/19 02:15 98 100 08/26/19 02:01 98 126/39 L 98 08/26/19 02:00 98 0 L 98 08/26/19 01:45 98 0 L 99 08/26/19 01:30 100 0 L 99 08/26/19 01:15 98 0 L 98 08/26/19 01:01 99 0 L 99 08/26/19 01:00 98 0 L 128/53 L 99 08/26/19 00:59 99 0 L 99 08/26/19 00:45 100 100 08/26/19 00:44 100 08/26/19 00:30 100 100 08/26/19 00:15 103 H 100 08/26/19 00:00 97.8 F 109 H 14 100 08/25/19 23:45 102 H 14 100 08/25/19 23:30 105 H 14 99 08/25/19 23:15 109 H 14 97 08/25/19 23:01 109 H 14 97 08/25/19 23:00 109 H 14 140/61 97 08/25/19 22:59 110 H 14 96 08/25/19 22:45 110 H 15 100 08/25/19 22:30 108 H 14 98 08/25/19 22:16 98 08/25/19 22:15 107 H 14 98 08/25/19 22:01 108 H 14 139/55 L 98 08/25/19 22:00 110 H 14 98 08/25/19 21:45 109 H 14 96 08/25/19 21:30 108 H 12 98 08/25/19 21:15 113 H 14 96 08/25/19 21:01 115 H 14 108/51 L 97 08/25/19 21:00 14 08/25/19 20:45 113 H 14 97 08/25/19 20:30 117 H 14 97 08/25/19 20:19 96 08/25/19 20:15 117 H 14 97 Date Exam was Performed: 08/26/19 Time Exam was Performed: 19:59 - Problem List & Annotations (1) Aspiration pneumonia SNOMED Code(s): 429170060 Code(s): J69.0 - PNEUMONITIS DUE TO INHALATION OF FOOD AND VOMIT Status: Acute Current Visit: Yes Qualifiers: Aspiration pneumonia type: due to vomit Laterality: bilateral Lung location: lower lobe of lung Qualified Code(s): J69.0 - Pneumonitis due to inhalation of food and vomit (2) Hypoxia SNOMED Code(s): 886910093 Code(s): R09.02 - HYPOXEMIA Status: Acute Current Visit: Yes (3) Ileitis SNOMED Code(s): 64612009 Code(s): K52.9 - NONINFECTIVE GASTROENTERITIS AND COLITIS, UNSPECIFIED Status: Acute Current Visit: Yes (4) Sepsis SNOMED Code(s): 84210554 Code(s): A41.9 - SEPSIS, UNSPECIFIED ORGANISM Status: Acute Current Visit : Yes Qualifiers: Sepsis type: sepsis due to unspecified organism Sepsis acute organ dysfunction status: unspecified Qualified Code(s): A41.9 - Sepsis, unspecified organism (5) UTI (urinary tract infection) SNOMED Code(s): 47285808 Code(s): N39.0 - URINARY TRACT INFECTION, SITE NOT SPECIFIED Status: Acute Current Visit: Yes Qualifiers: Urinary tract infection type: site unspecified Hematuria presence: without hematuria Qualified Code(s): N39.0 - Urinary tract infection, site not specified (6) Abdominal pain SNOMED Code(s): 84149823 Code(s): R10.9 - UNSPECIFIED ABDOMINAL PAIN Status: Acute Current Visit: No Qualifiers: Abdominal location: epigastric Qualified Code(s): R10.13 - Epigastric pain (7) High anion gap metabolic acidosis SNOMED Code(s): 65625925 Code(s): E87.2 - ACIDOSIS Status: Acute Current Visit: Yes (8) Respiratory alkalosis SNOMED Code(s): 222986686 Code(s): E87.3 - ALKALOSIS Status: Acute Current Visit: Yes (9) Acute abdomen SNOMED Code(s): 2133087 Code(s): R10.0 - ACUTE ABDOMEN Status: Acute Current Visit: Yes (10) Acute kidney failure SNOMED Code(s): 17929602 Code(s): N17.9 - ACUTE KIDNEY FAILURE, UNSPECIFIED Status: Acute Current Visit: Yes (11) Chronic kidney disease, stage 3 SNOMED Code(s): 716858435 Code(s): N18.3 - CHRONIC KIDNEY DISEASE, STAGE 3 (MODERATE) Status: Acute Current Visit: Yes (12) Hypothyroidism SNOMED Code(s): 14284365 Code(s): E03.9 - HYPOTHYROIDISM, UNSPECIFIED Status: Acute Current Visit : Yes (13) prison resident SNOMED Code(s): 534898898 Code(s): Z59.3 - PROBLEMS RELATED TO LIVING IN RESIDENTIAL INSTITUTION Status: Acute Current Visit: Yes (14) GERD (gastroesophageal reflux disease) SNOMED Code(s): 292171316 Code(s): K21.9 - GASTRO-ESOPHAGEAL REFLUX DISEASE WITHOUT ESOPHAGITIS Status: Acute Current Visit: No Qualifiers: Esophagitis presence: with esophagitis Qualified Code(s): K21.0 - Gastro- esophageal reflux disease with esophagitis (15) Hypertension SNOMED Code(s): 95042872 Code(s): I10 - ESSENTIAL (PRIMARY) HYPERTENSION Status: Acute Current Visit: No Qualifiers: Hypertension type: essential hypertension (16) Hypokalemia SNOMED Code(s): 99653054 Code(s): E87.6 - HYPOKALEMIA Status: Acute Priority: High Current Visit : No (17) Vascular dementia SNOMED Code(s): 193146683 Code(s): F01.50 - VASCULAR DEMENTIA WITHOUT BEHAVIORAL DISTURBANCE Status: Chronic Current Visit: No Qualifiers: Dementia behavioral disturbance: without behavioral disturbance Qualified Code(s): F01.50 - Vascular dementia without behavioral disturbance - Problem List Review Problem List Initiated/Reviewed/Updated: Yes - Plan Plan:: Septic shock 2/2 UTI/aspiration + healthcare associated pneumonia/Necrotic bowel 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 Rucker Decreased oral intake and complaining of abdominal pain-->Abnormal CT --> surgery consulted--> R hemicolectomy and small bowel resection Central line, arterial line and ETT placed Started on norepinephrine with inadequate BP response PLAN - Continue norepinephrine - Add dopamine - Continue on Levaquin + Vancomycin and Zosyn - NG tube care - NG at intermittent suction - Lr at 250ml/hr Acute kidney failure, worsening High anion gap metabolic acidosis Respiratory alkalosis Chronic kidney disease, stage 3 Hypokalemia Lactic acid continues to worsen--> multifactorial with hypoxia and sepsis PLAN - Monitor urine output - Renally dosed medications - Avoid nephrotoxic agents as much as possible - Lasix GERD (gastroesophageal reflux disease) No acute issues Needs stress ulcer prophylaxis due to ETT PLAN - Scheduled IV Pantoprazole Hypertension BP on admission stable Started dropping perioperatively requireing vasopressors PLAN - Hold home losartan Hypothyroidism No acute issues PLAN - Continue home meds once available Vascular dementia prison resident Requires 1 assist for bed mobility, transfer, dressing, personal hygiene and bathing 2 assist for ambulation Continent for bowel PROPHYLAXIS DVT- SCDs GI- pantoprazole CODE STATUS: FULL CODE DISPOSITION: Patient admitted to the ICU for vasopressors and mechanical ventilation. Taken to OR 14 with subsequent bowel resection. Patient's overall prognosis is very poor with [place] score or 32, predicted mortality of 74%; family aware.
[2019-08-26] MEDS: Heparin Sodium/D5W 25,000 UNITS/500 ML BAG IV SCH (08:24)
[2019-08-26] MEDS: Pantoprazole 40 MG Vial IVPUSH SCH (08:40)
--- NOTE | 2019-08-26 10:47 | CR ---
Chest: Portable view of the chest was obtained. Comparison: Prior chest x-ray of 08/24/19. Tip of endotracheal tube lies slightly below the inferior level of the clavicles in satisfactory position. Nasogastric tube has changed in position from prior exam and is now looped back on itself most likely within the stomach. Mild increased density within the right base and left mid to lower lung from prior exam most likely representing interval atelectasis. Upper lungs are clear. Heart size is within normal limits. Tortuous thoracic aorta is noted. Impression: 1. Increasing atelectasis within both lungs. 2. Looping of the nasogastric tube as an interval change from prior study. Tip still lies within the expected stomach. 3. Tip of endotracheal tube in satisfactory position below the clavicles. Diagnostic code #3 This report was dictated in [place] Standard Time I agree with preliminary report from [facility], finalized on 08/25/19, 11:58 PM Central Time
[2019-08-26] MEDS: Hydrocortisone Sodium Succinate 100 MG/2 ML SDV IV SCH ×2 (11:09→18:11)
[2019-08-26] MEDS: Enoxaparin 80 MG/0.8 ML Syringe SUBCUT SCH (11:10)
[2019-08-26] MEDS ORDERED: Lactated Ringers 1,000 ML IV SCH (12:30)
--- NOTE | 2019-08-26 12:31 | PCM.SURGPN ---
- General Info Date of Service: 08/26/19 POD#: 2 Post-Op Diagnosis: PNA, UTI, Bowel ischemia Functional Status: Reports: Pain Controlled - Patient Data Vitals - Most Recent: Last Vital Signs Temp 97.3 F 08/26/19 12:00 Pulse 75 08/26/19 11:15 Resp 14 08/26/19 11:15 BP 131/55 L 08/26/19 11:00 Pulse Ox 98 08/26/19 11:50 Weight - Most Recent: 78.471 kg I&O - Last 24 Hours: Intake & Output 08/25/19 08/26/19 08/26/19 22:59 06:59 14:59 Intake Total 3905 4254 Output Total 195 380 225 Balance 3710 3874 -225 Lab Results Last 24 Hrs: Laboratory Results - last 24 hr 08/25/19 08/25/19 08/25/19 Range/Units 15:35 15:57 18:05 WBC (3.98-10.04) K/mm3 RBC (3.98-5.22) M/mm3 Hgb (11.2-15.7) gm/dl Hct (34.1-44.9) % MCV (79.4-94.8) fl MCH (25.6-32.2) pg MCHC (32.2-35.5) g/dl RDW Std Deviation (36.4-46.3) fL Plt Count (182-369) K/mm3 MPV (9.4-12.3) fl PT 16.4 H D (9.7-12.0) SECONDS INR 1.54 APTT TNP Puncture Site Art line ABG pH 7.33 L (7.35-7.45) ABG pCO2 30.2 L (35.0-45.0) mmHg ABG pO2 62.0 L (80.0-100.0) mmHg ABG HCO3 15.6 L (22.0-26.0) meq/L ABG O2 Saturation 90.1 L (96.0-97.0) % ABG Base Excess -8.8 L (-2-2.0) Kerwin Test Positive A-a Gradient mmHg O2 Delivery Device Ventilator FiO2 0.00 L (21.00-100.00) % Tidal Volume 500.0 cc PEEP 14.0 cmH20 Sodium (136-145) mEq/L Potassium (3.5-5.1) mEq/L Chloride (98-107) mEq/L Carbon Dioxide (21-32) mEq/L Anion Gap (5-15) BUN (7-18) mg/dL Creatinine (0.55-1.02) mg/dL Est Cr Clr Drug Dosing mL/min Estimated GFR (MDRD) (>60) mL/min BUN/Creatinine Ratio (14-18) Glucose (83-115) mg/dL Lactic Acid (0.4-2.0) mmol/L Calcium (8.5-10.1) mg/dL Phosphorus (2.6-4.7) mg/dL Magnesium (1.8-2.4) mg/dl Total Bilirubin (0.2-1.0) mg/dL AST (15-37) U/L ALT (14-59) U/L Alkaline Phosphatase (46-116) U/L NT-Pro-B Natriuret Pep (0-450) pg/mL Total Protein (6.4-8.2) g/dl Albumin (3.4-5.0) g/dl Globulin gm/dL Albumin/Globulin Ratio (1-2) Ur Random Creatinine (30.0-125.0) mg/dL Ur Random Sodium (40-220) mEq/L 08/25/19 08/25/19 08/25/19 Range/Units 18:55 21:25 22:08 WBC (3.98-10.04) K/mm3 RBC (3.98-5.22) M/mm3 Hgb (11.2-15.7) gm/dl Hct (34.1-44.9) % MCV (79.4-94.8) fl MCH (25.6-32.2) pg MCHC (32.2-35.5) g/dl RDW Std Deviation (36.4-46.3) fL Plt Count (182-369) K/mm3 MPV (9.4-12.3) fl PT (9.7-12.0) SECONDS INR APTT Puncture Site ABG pH (7.35-7.45) ABG pCO2 (35.0-45.0) mmHg ABG pO2 (80.0-100.0) mmHg ABG HCO3 (22.0-26.0) meq/L ABG O2 Saturation (96.0-97.0) % ABG Base Excess (-2-2.0) Kerwin Test A-a Gradient mmHg O2 Delivery Device FiO2 (21.00-100.00) % Tidal Volume cc PEEP cmH20 Sodium (136-145) mEq/L Potassium (3.5-5.1) mEq/L Chloride (98-107) mEq/L Carbon Dioxide (21-32) mEq/L Anion Gap (5-15) BUN (7-18) mg/dL Creatinine (0.55-1.02) mg/dL Est Cr Clr Drug Dosing mL/min Estimated GFR (MDRD) (>60) mL/min BUN/Creatinine Ratio (14-18) Glucose (83-115) mg/dL Lactic Acid 5.7 H* 5.4 H* (0.4-2.0) mmol/L Calcium (8.5-10.1) mg/dL Phosphorus (2.6-4.7) mg/dL Magnesium (1.8-2.4) mg/dl Total Bilirubin (0.2-1.0) mg/dL AST (15-37) U/L ALT (14-59) U/L Alkaline Phosphatase (46-116) U/L NT-Pro-B Natriuret Pep 99244 H (0-450) pg/mL Total Protein (6.4-8.2) g/dl Albumin (3.4-5.0) g/dl Globulin gm/dL Albumin/Globulin Ratio (1-2) Ur Random Creatinine (30.0-125.0) mg/dL Ur Random Sodium (40-220) mEq/L 08/25/19 08/25/19 08/25/19 Range/Units 22:40 22:40 22:40 WBC 31.17 H (3.98-10.04) K/mm3 RBC 3.91 L (3.98-5.22) M/mm3 Hgb 10.8 L (11.2-15.7) gm/dl Hct 32.6 L (34.1-44.9) % MCV 83.4 (79.4-94.8) fl MCH 27.6 (25.6-32.2) pg MCHC 33.1 (32.2-35.5) g/dl RDW Std Deviation 70.8 H (36.4-46.3) fL Plt Count 242 (182-369) K/mm3 MPV 10.1 (9.4-12.3) fl PT (9.7-12.0) SECONDS INR APTT Puncture Site ABG pH (7.35-7.45) ABG pCO2 (35.0-45.0) mmHg ABG pO2 (80.0-100.0) mmHg ABG HCO3 (22.0-26.0) meq/L ABG O2 Saturation (96.0-97.0) % ABG Base Excess (-2-2.0) Kerwin Test A-a Gradient mmHg O2 Delivery Device FiO2 (21.00-100.00) % Tidal Volume cc PEEP cmH20 Sodium 136 (136-145) mEq/L Potassium 4.0 (3.5-5.1) mEq/L Chloride 104 (98-107) mEq/L Carbon Dioxide 18 L (21-32) mEq/L Anion Gap 18.0 H (5-15) BUN 31 H (7-18) mg/dL Creatinine 2.1 H (0.55-1.02) mg/dL Est Cr Clr Drug Dosing 16.20 mL/min Estimated GFR (MDRD) 22 (>60) mL/min BUN/Creatinine Ratio 14.8 (14-18) Glucose 113 (83-115) mg/dL Lactic Acid (0.4-2.0) mmol/L Calcium 7.4 L (8.5-10.1) mg/dL Phosphorus 4.3 (2.6-4.7) mg/dL Magnesium 1.2 L (1.8-2.4) mg/dl Total Bilirubin 0.5 (0.2-1.0) mg/dL AST 113 H (15-37) U/L ALT 86 H (14-59) U/L Alkaline Phosphatase 51 (46-116) U/L NT-Pro-B Natriuret Pep (0-450) pg/mL Total Protein 4.8 L (6.4-8.2) g/dl Albumin 1.4 L (3.4-5.0) g/dl Globulin 3.4 gm/dL Albumin/Globulin Ratio 0.4 L (1-2) Ur Random Creatinine 103.1 (30.0-125.0) mg/dL Ur Random Sodium 12 L (40-220) mEq/L 08/25/19 08/26/19 08/26/19 Range/Units 22:40 00:30 00:30 WBC (3.98-10.04) K/mm3 RBC (3.98-5.22) M/mm3 Hgb (11.2-15.7) gm/dl Hct (34.1-44.9) % MCV (79.4-94.8) fl MCH (25.6-32.2) pg MCHC (32.2-35.5) g/dl RDW Std Deviation (36.4-46.3) fL Plt Count (182-369) K/mm3 MPV (9.4-12.3) fl PT (9.7-12.0) SECONDS INR APTT TNP Puncture Site Art line ABG pH 7.27 L (7.35-7.45) ABG pCO2 37.9 (35.0-45.0) mmHg ABG pO2 127.0 H (80.0-100.0) mmHg ABG HCO3 17.0 L (22.0-26.0) meq/L ABG O2 Saturation 98.6 H (96.0-97.0) % ABG Base Excess -8.7 L (-2-2.0) Kerwin Test A-a Gradient 540 mmHg O2 Delivery Device Ventilator FiO2 100.00 (21.00-100.00) % Tidal Volume 500.0 cc PEEP 14.0 cmH20 Sodium (136-145) mEq/L Potassium (3.5-5.1) mEq/L Chloride (98-107) mEq/L Carbon Dioxide (21-32) mEq/L Anion Gap (5-15) BUN (7-18) mg/dL Creatinine (0.55-1.02) mg/dL Est Cr Clr Drug Dosing mL/min Estimated GFR (MDRD) (>60) mL/min BUN/Creatinine Ratio (14-18) Glucose (83-115) mg/dL Lactic Acid 4.0 H* (0.4-2.0) mmol/L Calcium (8.5-10.1) mg/dL Phosphorus (2.6-4.7) mg/dL Magnesium (1.8-2.4) mg/dl Total Bilirubin (0.2-1.0) mg/dL AST (15-37) U/L ALT (14-59) U/L Alkaline Phosphatase (46-116) U/L NT-Pro-B Natriuret Pep (0-450) pg/mL Total Protein (6.4-8.2) g/dl Albumin (3.4-5.0) g/dl Globulin gm/dL Albumin/Globulin Ratio (1-2) Ur Random Creatinine (30.0-125.0) mg/dL Ur Random Sodium (40-220) mEq/L 08/26/19 08/26/19 08/26/19 Range/Units 03:23 05:35 05:35 WBC 25.91 H (3.98-10.04) K/mm3 RBC 3.52 L (3.98-5.22) M/mm3 Hgb 9.5 L (11.2-15.7) gm/dl Hct 28.9 L (34.1-44.9) % MCV 82.1 (79.4-94.8) fl MCH 27.0 (25.6-32.2) pg MCHC 32.9 (32.2-35.5) g/dl RDW Std Deviation 68.2 H (36.4-46.3) fL Plt Count 204 (182-369) K/mm3 MPV 10.2 (9.4-12.3) fl PT (9.7-12.0) SECONDS INR APTT Puncture Site ABG pH (7.35-7.45) ABG pCO2 (35.0-45.0) mmHg ABG pO2 (80.0-100.0) mmHg ABG HCO3 (22.0-26.0) meq/L ABG O2 Saturation (96.0-97.0) % ABG Base Excess (-2-2.0) Kerwin Test A-a Gradient mmHg O2 Delivery Device FiO2 (21.00-100.00) % Tidal Volume cc PEEP cmH20 Sodium 141 (136-145) mEq/L Potassium 4.1 (3.5-5.1) mEq/L Chloride 107 (98-107) mEq/L Carbon Dioxide 20 L (21-32) mEq/L Anion Gap 18.1 H (5-15) BUN 30 H (7-18) mg/dL Creatinine 2.0 H (0.55-1.02) mg/dL Est Cr Clr Drug Dosing 17.01 mL/min Estimated GFR (MDRD) 24 (>60) mL/min BUN/Creatinine Ratio 15.0 (14-18) Glucose 93 (83-115) mg/dL Lactic Acid 2.5 H* (0.4-2.0) mmol/L Calcium 7.4 L (8.5-10.1) mg/dL Phosphorus (2.6-4.7) mg/dL Magnesium 1.1 L (1.8-2.4) mg/dl Total Bilirubin (0.2-1.0) mg/dL AST (15-37) U/L ALT (14-59) U/L Alkaline Phosphatase (46-116) U/L NT-Pro-B Natriuret Pep (0-450) pg/mL Total Protein (6.4-8.2) g/dl Albumin (3.4-5.0) g/dl Globulin gm/dL Albumin/Globulin Ratio (1-2) Ur Random Creatinine (30.0-125.0) mg/dL Ur Random Sodium (40-220) mEq/L 08/26/19 Range/Units 05:35 WBC (3.98-10.04) K/mm3 RBC (3.98-5.22) M/mm3 Hgb (11.2-15.7) gm/dl Hct (34.1-44.9) % MCV (79.4-94.8) fl MCH (25.6-32.2) pg MCHC (32.2-35.5) g/dl RDW Std Deviation (36.4-46.3) fL Plt Count (182-369) K/mm3 MPV (9.4-12.3) fl PT (9.7-12.0) SECONDS INR APTT Puncture Site ABG pH (7.35-7.45) ABG pCO2 (35.0-45.0) mmHg ABG pO2 (80.0-100.0) mmHg ABG HCO3 (22.0-26.0) meq/L ABG O2 Saturation (96.0-97.0) % ABG Base Excess (-2-2.0) Kerwin Test A-a Gradient mmHg O2 Delivery Device FiO2 (21.00-100.00) % Tidal Volume cc PEEP cmH20 Sodium (136-145) mEq/L Potassium (3.5-5.1) mEq/L Chloride (98-107) mEq/L Carbon Dioxide (21-32) mEq/L Anion Gap (5-15) BUN (7-18) mg/dL Creatinine (0.55-1.02) mg/dL Est Cr Clr Drug Dosing mL/min Estimated GFR (MDRD) (>60) mL/min BUN/Creatinine Ratio (14-18) Glucose (83-115) mg/dL Lactic Acid 1.9 (0.4-2.0) mmol/L Calcium (8.5-10.1) mg/dL Phosphorus (2.6-4.7) mg/dL Magnesium (1.8-2.4) mg/dl Total Bilirubin (0.2-1.0) mg/dL AST (15-37) U/L ALT (14-59) U/L Alkaline Phosphatase (46-116) U/L NT-Pro-B Natriuret Pep (0-450) pg/mL Total Protein (6.4-8.2) g/dl Albumin (3.4-5.0) g/dl Globulin gm/dL Albumin/Globulin Ratio (1-2) Ur Random Creatinine (30.0-125.0) mg/dL Ur Random Sodium (40-220) mEq/L Gerardo Results Last 24 Hrs: Microbiology 08/24/19 12:16 Aerobic Blood Culture - Preliminary Blood - Venous NO GROWTH AFTER 1 DAY Anaerobic Blood Culture - Preliminary NO GROWTH AFTER 1 DAY 08/24/19 12:24 Aerobic Blood Culture - Preliminary Blood - Venous - Lab Draw NO GROWTH AFTER 1 DAY Anaerobic Blood Culture - Preliminary NO GROWTH AFTER 1 DAY 08/24/19 11:42 Urine Culture - Preliminary Urine, Catheterized Gram Negative Rods Med Orders - Current: Current Medications Enoxaparin Sodium (Lovenox) 70 mg SUBCUT Q24H CHUY Last Admin: 08/26/19 11:10 Dose: 70 mg Hydrocortisone Sodium Succinate (Solu-Cortef) 50 mg IV Q8H CHUY Last Admin: 08/26/19 11:09 Dose: 50 mg Fentanyl 2,500 mcg/ Sodium (Chloride) 250 mls @ 7.27 mls/hr IV TITRATE CHUY; Protocol Stop: 08/26/19 15:30 Last Titration: 08/26/19 11:55 Dose: 1.23 mcg/kg/hr, 9 mls/hr Norepinephrine Bitartrate 4 mg (/ Dextrose/Water) 250 mls @ 7.5 mls/hr IV TITRATE CHUY; Protocol Last Titration: 08/26/19 09:17 Dose: 11.5 mcg/min, 43.12 mls/hr Dopamine HCl/Dextrose (Dopamine In D5w 400 Mg/250 Ml) 400 mg in 250 mls @ 5.457 mls/hr IV TITRATE CHUY; Protocol Last Titration: 08/26/19 07:23 Dose: 1 mcg/kg/min, 2.728 mls/hr Midazolam HCl 50 mg/ Sodium (Chloride) 50 mls @ 0.5 mls/hr IV TITRATE CHUY; Protocol Last Titration: 08/25/19 19:00 Dose: 2 mg/hr, 2 mls/hr Albumin Human (Flexbumin 25%) 12.5 gm in 50 mls @ 100 mls/hr IV Q8H CHUY Last Admin: 08/26/19 06:19 Dose: 100 mls/hr Lactated Ringer's (Ringers, Lactated) 1,000 mls @ 200 mls/hr IV ASDIRECTED CHUY Last Admin: 08/26/19 10:17 Dose: 200 mls/hr Piperacillin Sod/Tazobactam (Sod 4.5 gm/ Sodium Chloride) 100 mls @ 25 mls/hr IV Q12H CHUY Pantoprazole Sodium (Protonix Iv) 40 mg IVPUSH DAILY CHUY Last Admin: 08/26/19 08:40 Dose: 40 mg Sodium Chloride (Saline Flush) 10 ml FLUSH ASDIRECTED PRN PRN Reason: Keep Vein Open Last Admin: 08/24/19 08:14 Dose: 10 ml Discontinued Medications Bumetanide (Bumex) 1 mg IVPUSH ONETIME ONE Stop: 08/25/19 22:49 Last Admin: 08/26/19 00:07 Dose: 1 mg Ephedrine Sulfate (Ephedrine In Ns) Confirm Administered Dose 25 mg .ROUTE .STK- MED ONE Stop: 08/24/19 21:32 Etomidate (Amidate) 40 mg IVPUSH .STK-MED ONE Stop: 08/24/19 15:01 Fentanyl (Sublimaze) Confirm Administered Dose 250 mcg .ROUTE .STK-MED ONE Stop: 08/24/19 18:10 Heparin Sodium (Porcine) (Heparin Sodium) 5,000 units IVPUSH .BOLUS ONE Stop: 08/25/19 13:27 Last Admin: 08/25/19 14:11 Dose: 5,000 units Heparin Sodium (Porcine) (Heparin Lock Flush 100 Units/Ml) Confirm Administered Dose 500 units .ROUTE .STK-MED ONE Stop: 08/25/19 22:38 Last Admin: 08/25/19 23:02 Dose: 500 units Hydromorphone HCl (Dilaudid) 0.5 mg IVPUSH ONETIME ONE Stop: 08/24/19 07:28 Last Admin: 08/24/19 08:15 Dose: 0.5 mg Sodium Chloride (Normal Saline) 1,000 mls @ 1,000 mls/hr IV .BOLUS STA Stop: 08/24/19 08:25 Last Admin: 08/24/19 08:13 Dose: 1,000 mls/hr Cefepime HCl 2 gm/ Premix 50 mls @ 100 mls/hr IV ONETIME ONE Stop: 08/24/19 13:18 Last Admin: 08/24/19 13:19 Dose: 100 mls/hr Lactated Ringer's (Ringers, Lactated) 1,100 mls @ 1,000 mls/hr IV .BOLUS ONE Stop: 08/24/19 14:13 Last Admin: 08/24/19 13:40 Dose: 1,000 mls/hr Levofloxacin/Dextrose 750 mg/ (Premix) 150 mls @ 100 mls/hr IV ONETIME ONE Stop: 08/24/19 15:07 Last Admin: 08/24/19 16:03 Dose: 100 mls/hr Piperacillin Sod/Tazobactam (Sod 4.5 gm/ Sodium Chloride) 100 mls @ 25 mls/hr IV Q8H CHUY Last Admin: 08/26/19 05:13 Dose: 25 mls/hr Vancomycin HCl 1 gm/ Sodium (Chloride) 250 mls @ 250 mls/hr IV ONETIME ONE Stop: 08/24/19 14:37 Last Admin: 08/24/19 16:06 Dose: 250 mls/hr Midazolam HCl 50 mg/ Sodium (Chloride) 50 mls @ 0.5 mls/hr IV TITRATE CHUY; Protocol Stop: 08/25/19 15:29 Last Titration: 08/25/19 11:57 Dose: 2 mg/hr, 2 mls/hr Lactated Ringer's (Ringers, Lactated) 1,000 mls @ 125 mls/hr IV ASDIRECTED CHUY Last Admin: 08/25/19 01:00 Dose: 125 mls/hr Sodium Chloride (Normal Saline) Confirm Administered Dose 1,000 mls @ as directed .ROUTE .STK-MED ONE Stop: 08/24/19 17:09 Last Admin: 08/24/19 17:16 Dose: 1 mls/hr Lactated Ringer's (Ringers, Lactated) Confirm Administered Dose 1,000 mls @ as directed .ROUTE .STK-MED ONE Stop: 08/24/19 18:34 Lactated Ringer's (Ringers, Lactated) Confirm Administered Dose 1,000 mls @ as directed .ROUTE .[facility]-MED ONE Stop: 08/24/19 19:10 Lactated Ringer's (Ringers, Lactated) Confirm Administered Dose 1,000 mls @ as directed .ROUTE .STK-MED ONE Stop: 08/24/19 19:46 Lactated Ringer's (Ringers, Lactated) Confirm Administered Dose 1,000 mls @ as directed .ROUTE .STK-MED ONE Stop: 08/24/19 20:40 Lactated Ringer's (Ringers, Lactated) 1,000 mls @ 250 mls/hr IV ASDIRECTED CHUY Last Infusion: 08/26/19 06:29 Dose: 200 mls/hr Lactated Ringer's (Ringers, Lactated) 1,000 mls @ 999 mls/hr IV .BOLUS ONE Stop: 08/25/19 09:03 Last Admin: 08/25/19 08:10 Dose: 999 mls/hr Heparin Sodium/Dextrose (Heparin 25,000 Units In D5w 500 Ml) 25,000 units in 500 mls @ 26 mls/hr IV TITRATE CHUY; Protocol Last Admin: 08/26/19 08:24 Dose: 22 units/kg/hr, 32.013 mls/hr Lactated Ringer's (Ringers, Lactated) 2,000 mls @ 999 mls/hr IV .BOLUS ONE Stop: 08/25/19 17:52 Last Admin: 08/25/19 16:11 Dose: 999 mls/hr Lactated Ringer's (Ringers, Lactated) 1,000 mls @ 999 mls/hr IV .BOLUS ONE Stop: 08/25/19 17:13 Last Admin: 08/25/19 16:48 Dose: 999 mls/hr Albumin Human (Flexbumin 25%) 25 gm in 100 mls @ 100 mls/hr IV Q1H CHUY Stop: 08/26/19 00:46 Last Admin: 08/26/19 00:07 Dose: 100 mls/hr Magnesium Sulfate 4 gm/ Premix 100 mls @ 25 mls/hr IV ONETIME ONE Stop: 08/26/19 07:31 Last Admin: 08/26/19 06:48 Dose: 25 mls/hr Norepinephrine Bitartrate (Levophed) Confirm Administered Dose 4 mg .ROUTE .STK- MED ONE Stop: 08/24/19 16:39 Last Admin: 08/24/19 16:47 Dose: Not Given Ondansetron HCl (Zofran) 4 mg IVPUSH ONETIME ONE Stop: 08/24/19 07:27 Last Admin: 08/24/19 08:13 Dose: 4 mg Succinylcholine Chloride (Quelicin) 200 mg .ROUTE .STK-MED ONE Stop: 08/24/19 15:01 Vecuronium [place] (Vecuronium) Confirm Administered Dose 10 mg .ROUTE .STK-MED ONE Stop: 08/24/19 20:13 - Exam Wound/Incisions: Healing Well, No Drainage General: Obtunded (sedated and intubated) HEENT: Pupils Reactive Cardiovascular: Regular Rate, Regular Rhythm GI/Abdominal Exam: Soft, No Mass Sepsis Event Note - Evaluation Sepsis Screening Result: No Definite Risk - Focused Exam Vital Signs: Vital Signs Temp Pulse Resp BP Pulse Ox Pulse Ox 08/26/19 12:00 97.3 F 08/26/19 11:50 98 08/26/19 11:48 99 08/26/19 11:15 75 14 99 08/26/19 11:01 74 14 99 08/26/19 11:00 75 14 131/55 L 99 08/26/19 10:59 74 14 99 08/26/19 10:45 75 14 99 08/26/19 10:30 76 14 99 12/16/19 10:15 74 14 99 08/26/19 10:02 74 14 112/50 L 99 08/26/19 10:01 74 14 99 08/26/19 10:00 74 14 99 08/26/19 09:45 74 14 99 08/26/19 09:31 100 08/26/19 09:30 73 14 100 100 08/26/19 09:15 74 14 100 08/26/19 09:01 76 14 128/52 L 100 08/26/19 09:00 75 14 100 08/26/19 08:45 75 14 100 08/26/19 08:30 78 14 100 08/26/19 08:15 81 14 100 100 08/26/19 08:12 100 08/26/19 08:10 97.5 F 08/26/19 08:01 88 14 120/47 L 99 08/26/19 08:00 88 14 99 08/26/19 07:45 89 14 100 08/26/19 07:30 93 14 99 08/26/19 07:15 93 16 99 08/26/19 07:01 95 14 144/62 H 100 08/26/19 07:00 92 14 100 08/26/19 06:49 99 08/26/19 06:45 95 14 99 08/26/19 06:30 91 14 100 08/26/19 06:15 94 14 100 08/26/19 06:01 95 14 141/64 H 100 08/26/19 06:00 95 14 100 08/26/19 05:45 92 14 100 08/26/19 05:30 91 14 99 08/26/19 05:15 92 14 99 08/26/19 05:01 93 14 142/52 H 100 08/26/19 05:00 92 14 99 08/26/19 04:45 93 14 100 08/26/19 04:30 94 14 100 08/26/19 04:20 100 08/26/19 04:15 95 14 100 08/26/19 04:01 94 14 130/49 L 99 08/26/19 04:00 97.6 F 94 14 99 08/26/19 03:45 95 14 100 08/26/19 03:30 95 100 08/26/19 03:15 96 100 08/26/19 03:01 97 116/41 L 99 08/26/19 03:00 97 99 08/26/19 02:45 98 100 08/26/19 02:35 100 08/26/19 02:30 97 100 08/26/19 02:15 98 100 08/26/19 02:01 98 126/39 L 98 08/26/19 02:00 98 0 L 98 08/26/19 01:45 98 0 L 99 08/26/19 01:30 100 0 L 99 08/26/19 01:15 98 0 L 98 08/26/19 01:01 99 0 L 99 08/26/19 01:00 98 0 L 128/53 L 99 08/26/19 00:59 99 0 L 99 08/26/19 00:45 100 100 08/26/19 00:44 100 08/26/19 00:30 100 100 Date Exam was Performed: 08/26/19 Time Exam was Performed: 12:25 - Problem List Review Problem List Initiated/Reviewed/Updated: No - My Orders Last 24 Hours: Active Orders 24 hr Category Date Time Status NPO [Nothing Per Oral Diet] [DIET] Diet 08/26/19 Breakfast Active MISC TEST Routine Lab 08/26/19 07:01 Received Albumin 25% [Flexbumin 25%] Med 08/26/19 07:00 Active 12.5 gm in 50 ml IV Q8H DOPamine/Dextrose 5%-Water [DOPamine in D5W 400 MG/250 Med 08/25/19 15:15 Active ML] 400 mg in 250 ml IV TITRATE Enoxaparin [Lovenox] Med 08/26/19 12:00 Active 70 mg SUBCUT Q24H Hydrocortisone Sod Succinate [Solu-CORTEF] Med 08/26/19 11:00 Active 50 mg IV Q8H Lactated Ringers [Ringers, Lactated] 1,000 ml Med 08/26/19 06:30 Active IV ASDIRECTED Midazolam [Versed 5 MG/ML] 50 mg Med 08/25/19 18:15 Active Sodium Chloride 0.9% [Normal Saline] 40 ml IV TITRATE Piperacillin/Tazobactam [Piperacil-Tazobact] 4.5 gm Med 08/26/19 18:00 Active Sodium Chloride 0.9% [Normal Saline] 100 ml IV Q12H Medication Orders Enoxaparin Sodium (Lovenox) 70 mg SUBCUT Q24H CHUY Last Admin: 08/26/19 11:10 Dose: 70 mg Hydrocortisone Sodium Succinate (Solu-Cortef) 50 mg IV Q8H CHUY Last Admin: 08/26/19 11:09 Dose: 50 mg Fentanyl 2,500 mcg/ Sodium (Chloride) 250 mls @ 7.27 mls/hr IV TITRATE CHUY; Protocol Stop: 08/26/19 15:30 Last Titration: 08/26/19 11:55 Dose: 1.23 mcg/kg/hr, 9 mls/hr Admin: 08/25/19 14:20 Dose: 1.37 mcg/kg/hr, 10 mls/hr Titration: 08/25/19 14:20 Dose: 1.37 mcg/kg/hr, 10 mls/hr Titration: 08/25/19 02:29 Dose: 1.37 mcg/kg/hr, 10 mls/hr Titration: 08/24/19 23:18 Dose: 0.68 mcg/kg/hr, 5 mls/hr Titration: 08/24/19 17:45 Dose: 0 mcg/kg/hr, 0 mls/hr Titration: 08/24/19 16:13 Dose: 0.96 mcg/kg/hr, 7 mls/hr Admin: 08/24/19 16:12 Dose: 1 mcg/kg/hr, 7.27 mls/hr Norepinephrine Bitartrate 4 mg (/ Dextrose/Water) 250 mls @ 7.5 mls/hr IV TITRATE [facility]; Protocol Last Titration: 08/26/19 09:17 Dose: 11.5 mcg/min, 43.12 mls/hr Titration: 08/26/19 09:05 Dose: 12 mcg/min, 45 mls/hr Titration: 08/26/19 08:30 Dose: 11 mcg/min, 41.25 mls/hr Titration: 08/26/19 08:00 Dose: 10 mcg/min, 37.5 mls/hr Titration: 08/26/19 07:37 Dose: 9 mcg/min, 33.75 mls/hr Titration: 08/26/19 07:30 Dose: 10 mcg/min, 37.5 mls/hr Titration: 08/26/19 07:23 Dose: 8 mcg/min, 30 mls/hr Admin: 08/26/19 06:38 Dose: 5 mcg/min, 18.75 mls/hr Titration: 08/25/19 20:22 Dose: 10 mcg/min, 37.5 mls/hr Titration: 08/25/19 18:37 Dose: 6 mcg/min, 22.5 mls/hr Titration: 08/25/19 17:40 Dose: 5 mcg/min, 18.75 mls/hr Titration: 08/25/19 14:33 Dose: 17 mcg/min, 63.75 mls/hr Admin: 08/25/19 14:28 Dose: 15 mcg/min, 56.25 mls/hr Titration: 08/25/19 11:06 Dose: 11 mcg/min, 41.25 mls/hr Titration: 08/25/19 07:51 Dose: 7 mcg/min, 26.25 mls/hr Titration: 08/25/19 06:56 Dose: 5 mcg/min, 18.75 mls/hr Titration: 08/24/19 22:16 Dose: 4 mcg/min, 15 mls/hr Admin: 08/24/19 16:47 Dose: 2 mcg/min, 7.5 mls/hr Dopamine HCl/Dextrose (Dopamine In D5w 400 Mg/250 Ml) 400 mg in 250 mls @ 5.457 mls/hr IV TITRATE [facility]; Protocol Last Titration: 08/26/19 07:23 Dose: 1 mcg/kg/min, 2.728 mls/hr Titration: 08/26/19 07:00 Dose: 2.5 mcg/kg/min, 6.821 mls/hr Titration: 08/26/19 06:53 Dose: 5 mcg/kg/min, 13.642 mls/hr Titration: 08/26/19 06:53 Dose: 10 mcg/kg/min, 27.284 mls/hr Titration: 08/26/19 06:37 Dose: 5 mcg/kg/min, 13.642 mls/hr Titration: 08/26/19 06:31 Dose: 10 mcg/kg/min, 27.284 mls/hr Admin: 08/26/19 05:12 Dose: 15 mcg/kg/min, 40.925 mls/hr Titration: 08/26/19 04:50 Dose: 17.5 mcg/kg/min, 47.746 mls/hr Titration: 08/26/19 01:33 Dose: 17.5 mcg/kg/min, 47.746 mls/hr Admin: 08/25/19 23:15 Dose: 15 mcg/kg/min, 40.925 mls/hr Titration: 08/25/19 23:14 Dose: 12 mcg/kg/min, 32.74 mls/hr Titration: 08/25/19 18:37 Dose: 12 mcg/kg/min, 32.74 mls/hr Titration: 08/25/19 17:45 Dose: 10 mcg/kg/min, 27.284 mls/hr Titration: 08/25/19 17:38 Dose: 12 mcg/kg/min, 32.74 mls/hr Titration: 08/25/19 16:20 Dose: 13 mcg/kg/min, 35.469 mls/hr Titration: 08/25/19 15:38 Dose: 11 mcg/kg/min, 30.012 mls/hr Titration: 08/25/19 15:30 Dose: 6 mcg/kg/min, 16.37 mls/hr Titration: 08/25/19 15:28 Dose: 4 mcg/kg/min, 10.913 mls/hr Titration: 08/25/19 15:23 Dose: 3 mcg/kg/min, 8.185 mls/hr Admin: 08/25/19 15:16 Dose: 2 mcg/kg/min, 5.457 mls/hr Midazolam HCl 50 mg/ Sodium (Chloride) 50 mls @ 0.5 mls/hr IV TITRATE [facility]; Protocol Last Titration: 08/25/19 19:00 Dose: 2 mg/hr, 2 mls/hr Admin: 08/25/19 18:10 Dose: 0.5 mg/hr, 0.5 mls/hr Albumin Human (Flexbumin 25%) 12.5 gm in 50 mls @ 100 mls/hr IV Q8H [facility] Last Admin: 08/26/19 06:19 Dose: 100 mls/hr Lactated Ringer's (Ringers, Lactated) 1,000 mls @ 200 mls/hr IV ASDIRECTED CHUY Last Admin: 08/26/19 10:17 Dose: 200 mls/hr Infusion: 08/26/19 10:17 Dose: 200 mls/hr Admin: 08/26/19 06:38 Dose: 200 mls/hr Piperacillin Sod/Tazobactam (Sod 4.5 gm/ Sodium Chloride) 100 mls @ 25 mls/hr IV Q12H [facility] Pantoprazole Sodium (Protonix Iv) 40 mg IVPUSH DAILY [facility]UY Last Admin: 08/26/19 08:40 Dose: 40 mg Admin: 08/25/19 08:19 Dose: 40 mg Sodium Chloride (Saline Flush) 10 ml FLUSH ASDIRECTED PRN PRN Reason: Keep Vein Open Last Admin: 08/24/19 08:14 Dose: 10 ml - Assessment Assessment (Free Text/Narrative):: Patient still critically ill. Septic shock secondary to PNA, UTI and Ischemic bowel s/p ex lap, SBR and R hemicolectomy 08/24. Lactate had normalized. - Plan Plan (Free Text/Narrative):: - Would recommend reducing IVF and titrating pressors to MAP 65. - No TF until patient if off pressors - Continue NGT and rothman - replete electrolytes
--- NOTE | 2019-08-26 12:44 | OR ---
DATE OF OPERATION: 08/24/2019 SURGEON: Samira Rucker MD PREOPERATIVE DIAGNOSIS: Pneumatosis intestinalis and sepsis. POSTOPERATIVE DIAGNOSIS: 1. Necrotic distal small bowel. 2. Sepsis. OPERATION PERFORMED: Exploratory laparotomy, small-bowel resection, and right hemicolectomy. ANESTHESIA: Anesthesia is general. ESTIMATED BLOOD LOSS: 200 mL. FLUIDS: 3800 mL. URINE OUTPUT: 200 mL. COMPLICATIONS: None. FINDINGS: 1. Necrotic distal small bowel. 2. Nonpalpable SMA, but there is biphasic Doppler signal to the SMA. INDICATIONS AND CONSENT: The patient is an 84-year-old female with past medical history including GERD, cardiac disease, and prior laparoscopic cholecystectomy. The patient presented this morning to the emergency department after acute onset of abdominal pain from a group home. Labs in the emergency department showed white count of 24, the patient's saturations were low, and CT scan revealed pneumatosis intestinalis upon my review. my physical exam also showed peritonitis. I recommended emergent operation for this patient for source control. The patient also has pneumonia and concern for UTI. The family came to the hospital and they saw the patient and we discussed all risks, benefits, and alternatives, and informed consents were obtained. DESCRIPTION OF PROCEDURE: The patient was taken to the operating room, placed in a supine position. The patient was already intubated in the ICU for hypoxemia prior to presentation to the OR. Jay catheter had already been placed. OG was placed. The abdomen was prepped and draped in the usual sterile fashion. A formal time-out was performed. Of note, the patient was already on broad-spectrum antibiotics. Therefore, none additional were given in the operating room. We began the procedure by making a midline incision with a scalpel. Dissection was carried down with a Bovie electrocautery until the abdomen was entered. No immediate injuries were encountered upon the entrance into the abdomen; however, there was frankly necrotic small bowel. The bowel was quickly taken out of the abdomen and we ran the bowel from ligament of Treitz all the way to the cecum. The distal ileum was the area of necrosis. Therefore, about 40 cm of the distal ileum were resected as it was frankly necrotic. The small bowel mesentery was taken down with using LigaSure Impact. This left about a small stump of the distal ileum about 5 to 7 cm from the ileocecal valve. Once this frankly necrotic bowel was taken out, the rest of the bowel was observed and appeared to be pink and peristalsing. We used hand-held Doppler to feel for blood flow as the mesenteric pulses were not palpable. We were able to get biphasic signals in the small bowel mesentery as well as the SMA, which was also not palpable. Once this was done, we inspected the cecum. The cecum was viable but distended. The visible colon appeared viable without any patches of ischemia. However, because of the short small-bowel stump to cecum, we were unable to perform small bowel to small bowel anastomosis. Therefore, decision was made to proceed with a right hemicolectomy. The white line of Toldt on the right side was mobilized. The part of the right colon was adhered to the gallbladder fossa from prior cholecystectomy. Therefore, adhesions to this area were taken down and to be free up the right colon. It was necessary to take down a hepatic flexure. This was taken down with cautery and blunt dissection until it was completely released. I used 55mm blue loads and RENE stapler to resect the right colon about 20 cm from the cecum. Once this was done, the mesentery was divided using LigaSure Impact. However, of note, during the takedown of the right colon, there was significant spillage of stool which was immediately suctioned out. Once the right colon was resected and passed off for pathology. The abdomen was irrigated with copious amount of warm saline. About 5 L were used to irrigate the abdomen until the irrigant drained clear. Once again, the small bowel as well as the colon were reinspected. They appeared to be pink and peristalsing. The Doppler signals were still present in the small bowel mesentery as well as the SMA; therefore, we proceeded with side- to-side stapled anastomosis. To do this, the colon and the bowel were apposed and were opened. A 55 mm blue load was used to create ileocolonic anastomosis and a 60 blue TA stapler was used to close the common enterotomy. Then, Lembert stitches were used to close the common enterotomy staple line. The mesenteric defect was closed with 2-0 Vicryl stitches, and then the bowels and anastomosis were felt to be widely patent and was placed back into the abdomen. Once this was completed, the abdomen was reinspected again and appeared to be normal. All the bowel that was left appeared to be viable and then we proceeded with fascial closure. The fascia was closed with a 0 looped PDS stitches and the skin was loosely closed with poli after copious irrigation of the skin. This marked the end of the procedure. All instruments, sharps, and sponges were counted and found to be correct x2. The patient was taken back to the ICU while intubated for further resuscitation. The plan is to wean the patient off pressors as tolerated and if the patient is able to be extubated and doing well, she will be evaluated for vascular stenosis or ischemic bowel prior to discharge. MMODAL /[id number] MTDMarta
[2019-08-26] MEDS: fentaNYL 2,500 MCG in Sodium Chloride 0.9% 200 ML IV SCH (18:11)
--- NOTE | 2019-08-26 20:09 | PCM.PN ---
- General Info Date of Service: 08/26/19 Subjective Update: INTERVAL HISTORY: Overnight events: Hypotension and anuria which responded to albumin Labs: WBC 31.17--> 25.9 Hb 10.8-->9.5 GFR 29-->24 Lactic acid 4.3->5.7 VS Trend: BP: 87-115/46-57 HR: 46-100x' Temp: 97-97.8 Drips: Levophed at 12 Dopamine at 1 Heparin at 22 UO: 609ml Balance: +7550/24hrs and +8199 since admit BM: prior to admission MV: Intubation day: 08/24 Mode: AC/VC FiO2: 60% Rate: 14x PEEP:8 Vt: 500 Cultures: Urine-gram negative rods Nutrition: NPO - Patient Data Weight - Most Recent: 78.471 kg - Exam Quality Assessment: Supplemental Oxygen, Central Line/PICC, Urine Catheter, DVT Prophylaxis, Skin Breakdown General: Sedated HEENT: Other (scleral edema, oral mucosa is try) Neck: Trachea Midline, +2 Carotid Pulse wo Bruit. No: Lymphadenopathy Lungs: Decreased Breath Sounds, Crackles, Rales, Rhonchi. No: Wheezing Cardiovascular: Regular Rate, Regular Rhythm. No: Murmurs, Gallops, Rubs GI/Abdominal Exam: Distended. No: Normal Bowel Sounds Skin: Cool Wound/Incisions: Healing Well Sepsis Event Note - Evaluation Sepsis Screening Result: Severe Sepsis Risk - Focused Exam Vital Signs: Vital Signs Temp Pulse Resp BP Pulse Ox Pulse Ox 08/26/19 19:15 73 14 95 08/26/19 19:01 73 14 125/54 L 95 08/26/19 19:00 72 14 95 08/26/19 18:45 73 14 94 L 08/26/19 18:30 75 14 94 L 08/26/19 18:15 75 14 96 08/26/19 18:01 64 14 95 08/26/19 18:00 68 14 117/59 L 96 08/26/19 17:59 63 14 96 95 08/26/19 17:45 68 14 95 08/26/19 17:30 64 14 95 08/26/19 17:15 46 L 14 94 L 08/26/19 17:01 46 L 14 106/74 93 L 08/26/19 17:00 32 L 14 93 L 08/26/19 16:45 73 14 93 L 08/26/19 16:30 72 14 93 L 08/26/19 16:16 90 L 08/26/19 16:15 72 14 90 L 08/26/19 16:01 74 14 108/48 L 93 L 08/26/19 16:00 70 14 93 L 08/26/19 15:59 90 14 114/56 L 94 L 08/26/19 15:58 83 14 94 L 08/26/19 15:38 98 08/26/19 15:36 98 08/26/19 15:30 67 28 H 97 08/26/19 15:15 66 14 98 08/26/19 15:01 67 14 127/55 L 97 08/26/19 15:00 66 14 97 08/26/19 14:45 67 14 97 08/26/19 14:30 70 14 97 08/26/19 14:15 69 14 96 08/26/19 14:01 68 14 132/56 L 97 08/26/19 14:00 69 14 97 08/26/19 13:45 70 14 97 96 08/26/19 13:44 97 08/26/19 13:30 69 14 97 08/26/19 13:15 69 14 97 08/26/19 13:01 71 14 97 08/26/19 13:00 72 14 135/55 L 97 08/26/19 12:59 72 14 97 08/26/19 12:45 70 14 98 08/26/19 12:30 70 14 98 08/26/19 12:15 71 14 98 08/26/19 12:01 75 14 97 08/26/19 12:00 97.3 F 74 14 138/55 L 97 08/26/19 11:59 73 14 97 08/26/19 11:50 98 08/26/19 11:48 99 08/26/19 11:45 73 14 100 08/26/19 11:30 74 14 99 08/26/19 11:15 75 14 99 08/26/19 11:01 74 14 99 08/26/19 11:00 75 14 131/55 L 99 08/26/19 10:59 74 14 99 08/26/19 10:45 75 14 99 08/26/19 10:30 76 14 99 08/26/19 10:15 74 14 99 08/26/19 10:02 74 14 112/50 L 99 08/26/19 10:01 74 14 99 08/26/19 10:00 74 14 99 08/26/19 09:45 74 14 99 08/26/19 09:31 100 08/26/19 09:30 73 14 100 100 08/26/19 09:15 74 14 100 08/26/19 09:01 76 14 128/52 L 100 08/26/19 09:00 75 14 100 08/26/19 08:45 75 14 100 08/26/19 08:30 78 14 100 08/26/19 08:15 81 14 100 100 08/26/19 08:12 100 08/26/19 08:10 97.5 F Date Exam was Performed: 08/28/19 Time Exam was Performed: 14:08 - Problem List & Annotations (1) Aspiration pneumonia SNOMED Code(s): 836242528 Code(s): J69.0 - PNEUMONITIS DUE TO INHALATION OF FOOD AND VOMIT Status: Acute Current Visit: Yes Qualifiers: Aspiration pneumonia type: due to vomit Laterality: bilateral Lung location: lower lobe of lung Qualified Code(s): J69.0 - Pneumonitis due to inhalation of food and vomit (2) Hypoxia SNOMED Code(s): 222572766 Code(s): R09.02 - HYPOXEMIA Status: Acute Current Visit: Yes (3) Ileitis SNOMED Code(s): 50418951 Code(s): K52.9 - NONINFECTIVE GASTROENTERITIS AND COLITIS, UNSPECIFIED Status: Acute Current Visit: Yes (4) Sepsis SNOMED Code(s): 76021120 Code(s): A41.9 - SEPSIS, UNSPECIFIED ORGANISM Status: Acute Current Visit : Yes Qualifiers: Sepsis type: sepsis due to unspecified organism Sepsis acute organ dysfunction status: unspecified Qualified Code(s): A41.9 - Sepsis, unspecified organism (5) UTI (urinary tract infection) SNOMED Code(s): 35680010 Code(s): N39.0 - URINARY TRACT INFECTION, SITE NOT SPECIFIED Status: Acute Current Visit: Yes Qualifiers: Urinary tract infection type: site unspecified Hematuria presence: without hematuria Qualified Code(s): N39.0 - Urinary tract infection, site not specified (6) Abdominal pain SNOMED Code(s): 39379354 Code(s): R10.9 - UNSPECIFIED ABDOMINAL PAIN Status: Acute Current Visit: No Qualifiers: Abdominal location: epigastric Qualified Code(s): R10.13 - Epigastric pain (7) High anion gap metabolic acidosis SNOMED Code(s): 15284445 Code(s): E87.2 - ACIDOSIS Status: Acute Current Visit: Yes (8) Respiratory alkalosis SNOMED Code(s): 000043226 Code(s): E87.3 - ALKALOSIS Status: Acute Current Visit: Yes (9) Acute abdomen SNOMED Code(s): 4640083 Code(s): R10.0 - ACUTE ABDOMEN Status: Acute Current Visit: Yes (10) Acute kidney failure SNOMED Code(s): 71368693 Code(s): N17.9 - ACUTE KIDNEY FAILURE, UNSPECIFIED Status: Acute Current Visit: Yes (11) Chronic kidney disease, stage 3 SNOMED Code(s): 813570363 Code(s): N18.3 - CHRONIC KIDNEY DISEASE, STAGE 3 (MODERATE) Status: Acute Current Visit: Yes (12) Hypothyroidism SNOMED Code(s): 82455113 Code(s): E03.9 - HYPOTHYROIDISM, UNSPECIFIED Status: Acute Current Visit : Yes (13) [facility] resident SNOMED Code(s): 039607771 Code(s): Z59.3 - PROBLEMS RELATED TO LIVING IN RESIDENTIAL INSTITUTION Status: Acute Current Visit: Yes (14) GERD (gastroesophageal reflux disease) SNOMED Code(s): 261054661 Code(s): K21.9 - GASTRO-ESOPHAGEAL REFLUX DISEASE WITHOUT ESOPHAGITIS Status: Acute Current Visit: No Qualifiers: Esophagitis presence: with esophagitis Qualified Code(s): K21.0 - Gastro- esophageal reflux disease with esophagitis (15) Hypertension SNOMED Code(s): 15285458 Code(s): I10 - ESSENTIAL (PRIMARY) HYPERTENSION Status: Acute Current Visit: No Qualifiers: Hypertension type: essential hypertension (16) Hypokalemia SNOMED Code(s): 96704067 Code(s): E87.6 - HYPOKALEMIA Status: Acute Priority: High Current Visit : No (17) Vascular dementia SNOMED Code(s): 211657388 Code(s): F01.50 - VASCULAR DEMENTIA WITHOUT BEHAVIORAL DISTURBANCE Status: Chronic Current Visit: No Qualifiers: Dementia behavioral disturbance: without behavioral disturbance Qualified Code(s): F01.50 - Vascular dementia without behavioral disturbance (18) Hypomagnesemia SNOMED Code(s): 269491310 Code(s): E83.42 - HYPOMAGNESEMIA Status: Acute Current Visit: Yes (19) Anuria SNOMED Code(s): 5062053 Code(s): R34 - ANURIA AND OLIGURIA Status: Acute Current Visit: Yes (20) Hypoxemia SNOMED Code(s): 343011393 Code(s): R09.02 - HYPOXEMIA Status: Acute Current Visit: Yes - Problem List Review Problem List Initiated/Reviewed/Updated: Yes - Plan Plan:: Septic shock 2/2 UTI/aspiration + healthcare associated pneumonia/Necrotic bowel 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 Rucker Decreased oral intake and complaining of abdominal pain-->Abnormal CT --> surgery consulted--> R hemicolectomy and small bowel resection Central line, arterial line and ETT placed Started on norepinephrine with inadequate BP response--> started on dopamine which improved response PaFiO2 ratio 170 but XR was not compatible with ARDS PLAN - Continue norepinephrine and dopamine - Continue LR - Continue on Levaquin + Vancomycin and Zosyn - NG tube care - NG at intermittent suction - ETT care - VAP bundle - RT f/u - Suction by nursing - F/U with cultures - Procalcitonin in AM - Started on albumin Acute kidney failure, worsening High anion gap metabolic acidosis Respiratory alkalosis Chronic kidney disease, stage 3 Hypokalemia Lactic acid continues to worsen--> multifactorial with hypoxia and sepsis PLAN - Monitor urine output - Renally dosed medications - Avoid nephrotoxic agents as much as possible - Change lasix to Bumex GERD (gastroesophageal reflux disease) No acute issues Needs stress ulcer prophylaxis due to ETT PLAN - Scheduled IV Pantoprazole Hypertension BP on admission stable Started dropping perioperatively requireing vasopressors PLAN - Hold home losartan Hypothyroidism No acute issues PLAN - Continue home meds once available Vascular dementia [facility] resident Requires 1 assist for bed mobility, transfer, dressing, personal hygiene and bathing 2 assist for ambulation Continent for bowel PROPHYLAXIS DVT- SCDs GI- pantoprazole CODE STATUS: FULL CODE DISPOSITION: Patient admitted to the ICU for vasopressors and mechanical ventilation. Taken to OR 14 with subsequent bowel resection. Patient's overall prognosis is very poor with [place] score or 32, predicted mortality of 74%; family aware.
[2019-08-26] MEDS: Bumetanide 1 MG/4 ML MDV IVPUSH SCH (21:43)
[2019-08-26] MEDS: Midazolam 50 MG in Sodium Chloride 0.9% 40 ML IV SCH (21:48)
[2019-08-27] MEDS: Hydrocortisone Sodium Succinate 100 MG/2 ML SDV IV SCH ×3 (03:03→18:34)
[2019-08-27] MEDS: Piperacillin/Tazobactam 4.5 GM in Sodium Chloride 0.9% 100 ML IV SCH ×2 (05:09→18:35)
[2019-08-27] MEDS ORDERED: 50% Dextrose in Water 50 ML Syringe IVPUSH STA (05:40)
[2019-08-27] MEDS ORDERED: Dextrose 10% in Water 1,000 ML IV SCH ×2 (05:45→06:00)
[2019-08-27] MEDS ORDERED: Dextrose 10% in Water 1,000 ML ONE (05:46)
[2019-08-27] MEDS: Albumin 25% 12.5 GM/50 ML BAG IV SCH ×3 (06:00→23:04)
[2019-08-27] MEDS ORDERED: Atropine 0.1 MG/ML 10 ML Syringe IVPUSH ONE (07:56)
[2019-08-27] MEDS: Bumetanide 1 MG/4 ML MDV IVPUSH SCH ×2 (08:34→20:45)
[2019-08-27] MEDS: Pantoprazole 40 MG Vial IVPUSH SCH (08:34)
[2019-08-27] MEDS: Potassium Chloride 10 MEQ in Premix Bag 1 BAG IV SCH ×2 (11:39→12:55)
[2019-08-27] MEDS: Enoxaparin 80 MG/0.8 ML Syringe SUBCUT SCH (11:41)
[2019-08-27] MEDS: Dextrose 5%-Lact Ringers w/KCl 1,000 ML IV SCH ×2 (11:42→21:50)
--- NOTE | 2019-08-27 15:27 | PCM.SURGPN ---
- General Info Date of Service: 08/27/19 POD#: 3 Post-Op Diagnosis: PNA, UTI, Bowel necrosis Functional Status: Reports: Pain Controlled - Patient Data Vitals - Most Recent: Last Vital Signs Temp 97.4 F 08/27/19 14:00 Pulse 62 08/27/19 13:01 Resp 14 08/27/19 13:01 BP 95/50 L 08/27/19 13:00 Pulse Ox 98 08/27/19 13:44 Weight - Most Recent: 81.737 kg I&O - Last 24 Hours: Intake & Output 08/27/19 08/27/19 08/27/19 06:59 14:59 22:59 Intake Total 1017 Output Total 1480 1130 Balance -463 -1130 Lab Results Last 24 Hrs: Laboratory Results - last 24 hr 08/24/19 08/27/19 08/27/19 Range/Units 08:06 04:40 04:40 WBC 17.39 H (3.98-10.04) K/mm3 RBC 3.34 L (3.98-5.22) M/mm3 Hgb 9.1 L (11.2-15.7) gm/dl Hct 26.9 L (34.1-44.9) % MCV 80.5 (79.4-94.8) fl MCH 27.2 (25.6-32.2) pg MCHC 33.8 (32.2-35.5) g/dl RDW Std Deviation 65.5 H (36.4-46.3) fL Plt Count 127 L D (182-369) K/mm3 MPV 10.0 (9.4-12.3) fl Neutrophils % (Manual) 78 H (40-60) % Band Neutrophils % 13 H (0-10) % Lymphocytes % (Manual) 9 L (20-40) % Atypical Lymphs % 0 % Monocytes % (Manual) 0 L (2-10) % Eosinophils % (Manual) 0 L (0.7-5.8) % Basophils % (Manual) 0 L (0.1-1.2) Toxic Granulation 1+ slight Platelet Estimate Decreased Plt Morphology Comment Normal Poikilocytosis 2+ moderate Anisocytosis 2+ moderate Target Cells 2+ moderate Ovalocytes 2+ moderate Aneesh Cells 2+ moderate RBC Morph Comment Not Reportable Puncture Site ABG pH (7.35-7.45) ABG pCO2 (35.0-45.0) mmHg ABG pO2 (80.0-100.0) mmHg ABG HCO3 (22.0-26.0) meq/L ABG O2 Saturation (96.0-97.0) % ABG Base Excess (-2-2.0) A-a Gradient mmHg FiO2 (21.00-100.00) % Tidal Volume cc PEEP cmH20 Sodium 139 (136-145) mEq/L Potassium 3.1 L (3.5-5.1) mEq/L Chloride 105 (98-107) mEq/L Carbon Dioxide 21 (21-32) mEq/L Anion Gap 16.1 H (5-15) BUN 28 H (7-18) mg/dL Creatinine 1.8 H (0.55-1.02) mg/dL Est Cr Clr Drug Dosing 18.89 mL/min Estimated GFR (MDRD) 27 (>60) mL/min BUN/Creatinine Ratio 15.6 (14-18) Glucose 79 L (83-115) mg/dL POC Glucose (83-110) mg/dL Calcium 7.3 L (8.5-10.1) mg/dL Phosphorus 4.0 (2.6-4.7) mg/dL Magnesium 2.0 (1.8-2.4) mg/dl Procalcitonin 7.34 H (<0.10) ng/mL 08/27/19 08/27/19 Range/Units 05:55 06:10 WBC (3.98-10.04) K/mm3 RBC (3.98-5.22) M/mm3 Hgb (11.2-15.7) gm/dl Hct (34.1-44.9) % MCV (79.4-94.8) fl MCH (25.6-32.2) pg MCHC (32.2-35.5) g/dl RDW Std Deviation (36.4-46.3) fL Plt Count (182-369) K/mm3 MPV (9.4-12.3) fl Neutrophils % (Manual) (40-60) % Band Neutrophils % (0-10) % Lymphocytes % (Manual) (20-40) % Atypical Lymphs % % Monocytes % (Manual) (2-10) % Eosinophils % (Manual) (0.7-5.8) % Basophils % (Manual) (0.1-1.2) Toxic Granulation Platelet Estimate Plt Morphology Comment Poikilocytosis Anisocytosis Target Cells Ovalocytes Aneesh Cells RBC Morph Comment Puncture Site [place] ABG pH 7.41 (7.35-7.45) ABG pCO2 29.9 L (35.0-45.0) mmHg ABG pO2 79.0 L (80.0-100.0) mmHg ABG HCO3 18.6 L (22.0-26.0) meq/L ABG O2 Saturation 96.3 (96.0-97.0) % ABG Base Excess -4.9 L (-2-2.0) A-a Gradient 206 mmHg FiO2 45.00 (21.00-100.00) % Tidal Volume 500.0 cc PEEP 14.0 cmH20 Sodium (136-145) mEq/L Potassium (3.5-5.1) mEq/L Chloride (98-107) mEq/L Carbon Dioxide (21-32) mEq/L Anion Gap (5-15) BUN (7-18) mg/dL Creatinine (0.55-1.02) mg/dL Est Cr Clr Drug Dosing mL/min Estimated GFR (MDRD) (>60) mL/min BUN/Creatinine Ratio (14-18) Glucose (83-115) mg/dL POC Glucose 146 H (83-110) mg/dL Calcium (8.5-10.1) mg/dL Phosphorus (2.6-4.7) mg/dL Magnesium (1.8-2.4) mg/dl Procalcitonin (<0.10) ng/mL Gerardo Results Last 24 Hrs: Microbiology 08/24/19 12:16 Aerobic Blood Culture - Preliminary Blood - Venous NO GROWTH AFTER 3 DAYS Anaerobic Blood Culture - Preliminary NO GROWTH AFTER 3 DAYS 08/24/19 12:24 Aerobic Blood Culture - Preliminary Blood - Venous - Lab Draw NO GROWTH AFTER 3 DAYS Anaerobic Blood Culture - Preliminary NO GROWTH AFTER 3 DAYS 08/24/19 11:42 Urine Culture - Final Urine, Catheterized Escherichia Coli Med Orders - Current: Current Medications Bumetanide (Bumex) 1 mg IVPUSH BID [facility] Last Admin: 08/27/19 08:34 Dose: 1 mg Enoxaparin Sodium (Lovenox) 70 mg SUBCUT Q24H [facility] Last Admin: 08/27/19 11:41 Dose: 70 mg Hydrocortisone Sodium Succinate (Solu-Cortef) 50 mg IV Q8H [facility] Last Admin: 08/27/19 11:41 Dose: 50 mg Fentanyl 2,500 mcg/ Sodium (Chloride) 250 mls @ 7.27 mls/hr IV TITRATE [facility]; Protocol Last Titration: 08/27/19 07:55 Dose: 0 mcg/kg/hr, 0 mls/hr Norepinephrine Bitartrate 4 mg (/ Dextrose/Water) 250 mls @ 7.5 mls/hr IV TITRATE [facility]; Protocol Last Titration: 08/27/19 07:25 Dose: 0 mcg/min, 0 mls/hr Dopamine HCl/Dextrose (Dopamine In D5w 400 Mg/250 Ml) 400 mg in 250 mls @ 5.457 mls/hr IV TITRATE [facility]; Protocol Last Titration: 08/26/19 15:20 Dose: 0 mcg/kg/min, 0 mls/hr Albumin Human (Flexbumin 25%) 12.5 gm in 50 mls @ 100 mls/hr IV Q8H [facility] Stop: 08/29/19 07:01 Last Admin: 08/27/19 14:02 Dose: 100 mls/hr Piperacillin Sod/Tazobactam (Sod 4.5 gm/ Sodium Chloride) 100 mls @ 25 mls/hr IV Q12H [facility] Last Admin: 08/27/19 05:09 Dose: 25 mls/hr Potassium Cl/Dextrose/Lact Ringer's (D5 Lr With 20 Meq Kcl) 1,000 mls @ 100 mls /hr IV ASDIRECTED [facility] Last Admin: 08/27/19 11:42 Dose: 100 mls/hr Pantoprazole Sodium (Protonix Iv) 40 mg IVPUSH DAILY [facility] Last Admin: 08/27/19 08:34 Dose: 40 mg Sodium Chloride (Saline Flush) 10 ml FLUSH ASDIRECTED PRN PRN Reason: Keep Vein Open Last Admin: 08/24/19 08:14 Dose: 10 ml Discontinued Medications Atropine Sulfate (Atropine 0.1 Mg/Ml) 0.5 mg IVPUSH ONETIME ONE Stop: 08/27/19 07:57 Last Admin: 08/27/19 08:09 Dose: 0.5 mg Bumetanide (Bumex) 1 mg IVPUSH ONETIME ONE Stop: 08/25/19 22:49 Last Admin: 08/26/19 00:07 Dose: 1 mg Dextrose/Water (Dextrose 50% In Water) 25 ml IVPUSH NOW STA Stop: 08/27/19 05:41 Last Admin: 08/27/19 05:47 Dose: 25 ml Ephedrine Sulfate (Ephedrine In Ns) Confirm Administered Dose 25 mg .ROUTE .STK- MED ONE Stop: 08/24/19 21:32 Etomidate (Amidate) 40 mg IVPUSH .STK-MED ONE Stop: 08/24/19 15:01 Fentanyl (Sublimaze) Confirm Administered Dose 250 mcg .ROUTE .STK-MED ONE Stop: 08/24/19 18:10 Heparin Sodium (Porcine) (Heparin Sodium) 5,000 units IVPUSH .BOLUS ONE Stop: 08/25/19 13:27 Last Admin: 08/25/19 14:11 Dose: 5,000 units Heparin Sodium (Porcine) (Heparin Lock Flush 100 Units/Ml) Confirm Administered Dose 500 units .ROUTE .STK-MED ONE Stop: 08/25/19 22:38 Last Admin: 08/25/19 23:02 Dose: 500 units Hydromorphone HCl (Dilaudid) 0.5 mg IVPUSH ONETIME ONE Stop: 08/24/19 07:28 Last Admin: 08/24/19 08:15 Dose: 0.5 mg Sodium Chloride (Normal Saline) 1,000 mls @ 1,000 mls/hr IV .BOLUS STA Stop: 08/24/19 08:25 Last Admin: 08/24/19 08:13 Dose: 1,000 mls/hr Cefepime HCl 2 gm/ Premix 50 mls @ 100 mls/hr IV ONETIME ONE Stop: 08/24/19 13:18 Last Admin: 08/24/19 13:19 Dose: 100 mls/hr Lactated Ringer's (Ringers, Lactated) 1,100 mls @ 1,000 mls/hr IV .BOLUS ONE Stop: 08/24/19 14:13 Last Admin: 08/24/19 13:40 Dose: 1,000 mls/hr Levofloxacin/Dextrose 750 mg/ (Premix) 150 mls @ 100 mls/hr IV ONETIME ONE Stop: 08/24/19 15:07 Last Admin: 08/24/19 16:03 Dose: 100 mls/hr Piperacillin Sod/Tazobactam (Sod 4.5 gm/ Sodium Chloride) 100 mls @ 25 mls/hr IV Q8H [facility] Last Admin: 08/26/19 05:13 Dose: 25 mls/hr Vancomycin HCl 1 gm/ Sodium (Chloride) 250 mls @ 250 mls/hr IV ONETIME ONE Stop: 08/24/19 14:37 Last Admin: 08/24/19 16:06 Dose: 250 mls/hr Midazolam HCl 50 mg/ Sodium (Chloride) 50 mls @ 0.5 mls/hr IV TITRATE [facility]; Protocol Stop: 08/25/19 15:29 Last Titration: 08/25/19 11:57 Dose: 2 mg/hr, 2 mls/hr Lactated Ringer's (Ringers, Lactated) 1,000 mls @ 125 mls/hr IV ASDIRECTED [facility] Last Admin: 08/25/19 01:00 Dose: 125 mls/hr Sodium Chloride (Normal Saline) Confirm Administered Dose 1,000 mls @ as directed .ROUTE .STK-MED ONE Stop: 08/24/19 17:09 Last Admin: 08/24/19 17:16 Dose: 1 mls/hr Lactated Ringer's (Ringers, Lactated) Confirm Administered Dose 1,000 mls @ as directed .ROUTE .STK-MED ONE Stop: 08/24/19 18:34 Lactated Ringer's (Ringers, Lactated) Confirm Administered Dose 1,000 mls @ as directed .ROUTE .STK-MED ONE Stop: 08/24/19 19:10 Lactated Ringer's (Ringers, Lactated) Confirm Administered Dose 1,000 mls @ as directed .ROUTE .STK-MED ONE Stop: 08/24/19 19:46 Lactated Ringer's (Ringers, Lactated) Confirm Administered Dose 1,000 mls @ as directed .ROUTE .STK-MED ONE Stop: 08/24/19 20:40 Lactated Ringer's (Ringers, Lactated) 1,000 mls @ 250 mls/hr IV ASDIRECTED [facility] Last Infusion: 08/26/19 12:28 Dose: Infused Lactated Ringer's (Ringers, Lactated) 1,000 mls @ 999 mls/hr IV .BOLUS ONE Stop: 08/25/19 09:03 Last Admin: 08/25/19 08:10 Dose: 999 mls/hr Heparin Sodium/Dextrose (Heparin 25,000 Units In D5w 500 Ml) 25,000 units in 500 mls @ 26 mls/hr IV TITRATE [facility]; Protocol Last Admin: 08/26/19 08:24 Dose: 22 units/kg/hr, 32.013 mls/hr Lactated Ringer's (Ringers, Lactated) 2,000 mls @ 999 mls/hr IV .BOLUS ONE Stop: 08/25/19 17:52 Last Admin: 08/25/19 16:11 Dose: 999 mls/hr Lactated Ringer's (Ringers, Lactated) 1,000 mls @ 999 mls/hr IV .BOLUS ONE Stop: 08/25/19 17:13 Last Admin: 08/25/19 16:48 Dose: 999 mls/hr Midazolam HCl 50 mg/ Sodium (Chloride) 50 mls @ 0.5 mls/hr IV TITRATE [facility]; Protocol Last Titration: 08/27/19 07:55 Dose: 0 mg/hr, 0 mls/hr Albumin Human (Flexbumin 25%) 25 gm in 100 mls @ 100 mls/hr IV Q1H [facility] Stop: 08/26/19 00:46 Last Admin: 08/26/19 00:07 Dose: 100 mls/hr Lactated Ringer's (Ringers, Lactated) 1,000 mls @ 200 mls/hr IV ASDIRECTED [facility]HY Last Infusion: 08/26/19 12:30 Dose: 100 mls/hr Magnesium Sulfate 4 gm/ Premix 100 mls @ 25 mls/hr IV ONETIME ONE Stop: 08/26/19 07:31 Last Admin: 08/26/19 06:48 Dose: 25 mls/hr Lactated Ringer's (Ringers, Lactated) 1,000 mls @ 100 mls/hr IV ASDIRECTED [facility] Last Admin: 08/26/19 18:09 Dose: 100 mls/hr Dextrose/Water (Dextrose 10% In Water) 1,000 mls @ 25 mls/hr IV ASDIRECTED [facility] Dextrose/Water (Dextrose 10% In Water) 1,000 mls @ 25 mls/hr IV ASDIRECTED [facility] Last Admin: 08/27/19 05:52 Dose: 25 mls/hr Dextrose/Water (Dextrose 10% In Water) Confirm Administered Dose 1,000 mls @ as directed .ROUTE .STK-MED ONE Stop: 08/27/19 05:47 Last Admin: 08/27/19 05:56 Dose: Not Given Potassium Chloride 10 meq/ (Premix) 100 mls @ 100 mls/hr IV Q1H [facility] Stop: 08/27/19 12:59 Last Admin: 08/27/19 12:55 Dose: 100 mls/hr Norepinephrine Bitartrate (Levophed) Confirm Administered Dose 4 mg .ROUTE .STK- MED ONE Stop: 08/24/19 16:39 Last Admin: 08/24/19 16:47 Dose: Not Given Ondansetron HCl (Zofran) 4 mg IVPUSH ONETIME ONE Stop: 08/24/19 07:27 Last Admin: 08/24/19 08:13 Dose: 4 mg Succinylcholine Chloride (Quelicin) 200 mg .ROUTE .STK-MED ONE Stop: 08/24/19 15:01 Vecuronium [place] (Vecuronium) Confirm Administered Dose 10 mg .ROUTE .STK-MED ONE Stop: 08/24/19 20:13 - Exam Wound/Incisions: Healing Well, Drainage (mild, serous) Quality Assessment: Supplemental Oxygen, Central Line/PICC, Urine Catheter General: Obtunded (intubated, sedated) Cardiovascular: Regular Rate, Regular Rhythm GI/Abdominal Exam: Soft, Non-Tender Sepsis Event Note - Evaluation Sepsis Screening Result: No Definite Risk - Focused Exam Vital Signs: Vital Signs Temp Pulse Pulse Resp BP BP Pulse Ox 08/27/19 14:00 97.4 F 08/27/19 13:44 08/27/19 13:30 97.3 F 08/27/19 13:01 62 14 97 08/27/19 13:00 63 14 95/50 L 95 08/27/19 12:59 51 L 14 97 08/27/19 12:45 63 14 96 08/27/19 12:31 61 14 89/52 L 96 08/27/19 12:30 63 14 93 L 08/27/19 12:15 60 14 96 08/27/19 12:14 08/27/19 12:01 59 L 14 95/51 L 95 08/27/19 12:00 62 14 92 L 08/27/19 11:45 62 14 94 L 08/27/19 11:31 62 14 96/55 L 95 08/27/19 11:30 14 08/27/19 11:15 58 L 14 96 08/27/19 11:01 60 14 106/52 L 96 08/27/19 11:00 63 14 93 L 08/27/19 10:45 61 14 96 08/27/19 10:31 60 14 103/61 97 08/27/19 10:30 51 L 14 95 08/27/19 10:15 48 L 14 97 08/27/19 10:01 61 14 106/53 L 98 08/27/19 10:00 96.4 F 60 14 97 08/27/19 09:45 54 L 14 97 08/27/19 09:38 08/27/19 09:31 63 14 105/56 L 99 08/27/19 09:30 63 14 98 08/27/19 09:15 65 14 98 08/27/19 09:01 57 L 14 107/59 L 98 08/27/19 09:00 66 16 100 08/27/19 08:46 64 14 98 08/27/19 08:45 65 14 100/50 L 98 08/27/19 08:44 64 14 94 L 08/27/19 08:30 67 16 99 08/27/19 08:15 67 14 99 08/27/19 08:01 44 L 14 88/44 L 96 08/27/19 08:00 96.8 F 46 L 14 94 L 08/27/19 07:45 45 L 14 95 08/27/19 07:30 47 L 14 95 08/27/19 07:15 49 L 14 96 08/27/19 07:11 08/27/19 07:05 46 L 14 103/49 L 94 L 08/27/19 07:04 44 L 14 96 08/27/19 07:01 50 L 14 101/47 L 97 08/27/19 07:00 49 L 51 L 14 117/48 L 94 L 08/27/19 06:45 52 L 14 97 08/27/19 06:30 52 L 14 96 08/27/19 06:15 54 L 14 97 08/27/19 06:06 57 L 14 126/57 L 94 L 08/27/19 06:05 55 L 14 98 08/27/19 06:01 54 L 14 98 08/27/19 06:00 55 L 55 L 14 122/51 L 125/48 L 94 L 08/27/19 05:59 56 L 14 97 08/27/19 05:45 52 L 14 97 08/27/19 05:30 51 L 14 97 08/27/19 05:22 52 L 14 116/51 L 98 08/27/19 05:21 51 L 14 97 08/27/19 05:16 51 L 14 98 08/27/19 05:15 47 L 14 107/51 L 96 08/27/19 05:14 51 L 14 98 08/27/19 05:00 51 L 53 L 14 127/49 L 97 08/27/19 04:45 54 L 14 98 08/27/19 04:30 51 L 14 97 08/27/19 04:24 51 L 14 122/54 L 98 08/27/19 04:23 52 L 14 95 08/27/19 04:21 52 L 10 L 125/53 L 95 08/27/19 04:20 52 L 98 08/27/19 04:15 56 L 0 L 98 08/27/19 04:12 59 L 0 L 110/54 L 98 08/27/19 04:11 57 L 14 93 L 08/27/19 04:01 49 L 14 109/48 L 97 08/27/19 04:00 97.0 F 51 L 53 L 14 122/49 L 96 08/27/19 03:48 50 L 14 114/58 L 97 Pulse Ox 08/27/19 14:00 08/27/19 13:44 98 08/27/19 13:30 08/27/19 13:01 08/27/19 13:00 08/27/19 12:59 08/27/19 12:45 08/27/19 12:31 08/27/19 12:30 08/27/19 12:15 08/27/19 12:14 96 08/27/19 12:01 08/27/19 12:00 08/27/19 11:45 08/27/19 11:31 08/27/19 11:30 08/27/19 11:15 08/27/19 11:01 08/27/19 11:00 08/27/19 10:45 08/27/19 10:31 08/27/19 10:30 08/27/19 10:15 08/27/19 10:01 08/27/19 10:00 08/27/19 09:45 08/27/19 09:38 99 08/27/19 09:31 08/27/19 09:30 08/27/19 09:15 08/27/19 09:01 08/27/19 09:00 08/27/19 08:46 08/27/19 08:45 08/27/19 08:44 08/27/19 08:30 08/27/19 08:15 08/27/19 08:01 08/27/19 08:00 08/27/19 07:45 08/27/19 07:30 08/27/19 07:15 08/27/19 07:11 97 08/27/19 07:05 08/27/19 07:04 08/27/19 07:01 08/27/19 07:00 08/27/19 06:45 08/27/19 06:30 08/27/19 06:15 08/27/19 06:06 08/27/19 06:05 08/27/19 06:01 08/27/19 06:00 08/27/19 05:59 08/27/19 05:45 08/27/19 05:30 08/27/19 05:22 08/27/19 05:21 08/27/19 05:16 08/27/19 05:15 08/27/19 05:14 08/27/19 05:00 08/27/19 04:45 08/27/19 04:30 08/27/19 04:24 08/27/19 04:23 08/27/19 04:21 08/27/19 04:20 08/27/19 04:15 08/27/19 04:12 08/27/19 04:11 08/27/19 04:01 08/27/19 04:00 08/27/19 03:48 Date Exam was Performed: 08/27/19 Time Exam was Performed: 15:15 - Problem List Review Problem List Initiated/Reviewed/Updated: No - My Orders Last 24 Hours: Active Orders 24 hr Category Date Time Status PROCALCITONIN [REF] Routine Lab 08/27/19 04:40 Received Bumetanide [Bumex] Med 08/26/19 21:15 Active 1 mg IVPUSH BID Dextrose 5%-Lact Ringers w/KCl [D5 LR with 20 mEq KCl] Med 08/27/19 11:00 Active 1,000 ml IV ASDIRECTED Piperacillin/Tazobactam [Piperacil-Tazobact] 4.5 gm Med 08/26/19 18:00 Active Sodium Chloride 0.9% [Normal Saline] 100 ml IV Q12H Medication Orders Bumetanide (Bumex) 1 mg IVPUSH BID [facility] Last Admin: 08/27/19 08:34 Dose: 1 mg Admin: 08/26/19 21:43 Dose: 1 mg Enoxaparin Sodium (Lovenox) 70 mg SUBCUT Q24H [facility] Last Admin: 08/27/19 11:41 Dose: 70 mg Admin: 08/26/19 11:10 Dose: 70 mg Hydrocortisone Sodium Succinate (Solu-Cortef) 50 mg IV Q8H [facility] Last Admin: 08/27/19 11:41 Dose: 50 mg Admin: 08/27/19 03:03 Dose: 50 mg Admin: 08/26/19 18:11 Dose: 50 mg Admin: 08/26/19 11:09 Dose: 50 mg Fentanyl 2,500 mcg/ Sodium (Chloride) 250 mls @ 7.27 mls/hr IV TITRATE [facility]; Protocol Last Titration: 08/27/19 07:55 Dose: 0 mcg/kg/hr, 0 mls/hr Admin: 08/26/19 18:11 Dose: 1.09 mcg/kg/hr, 8 mls/hr Titration: 08/26/19 15:51 Dose: 1.09 mcg/kg/hr, 8 mls/hr Titration: 08/26/19 14:43 Dose: 1.09 mcg/kg/hr, 8 mls/hr Titration: 08/26/19 11:55 Dose: 1.23 mcg/kg/hr, 9 mls/hr Admin: 08/25/19 14:20 Dose: 1.37 mcg/kg/hr, 10 mls/hr Titration: 08/25/19 14:20 Dose: 1.37 mcg/kg/hr, 10 mls/hr Titration: 08/25/19 02:29 Dose: 1.37 mcg/kg/hr, 10 mls/hr Titration: 08/24/19 23:18 Dose: 0.68 mcg/kg/hr, 5 mls/hr Titration: 08/24/19 17:45 Dose: 0 mcg/kg/hr, 0 mls/hr Titration: 08/24/19 16:13 Dose: 0.96 mcg/kg/hr, 7 mls/hr Admin: 08/24/19 16:12 Dose: 1 mcg/kg/hr, 7.27 mls/hr Norepinephrine Bitartrate 4 mg (/ Dextrose/Water) 250 mls @ 7.5 mls/hr IV TITRATE [facility]; Protocol Last Titration: 08/27/19 07:25 Dose: 0 mcg/min, 0 mls/hr Titration: 08/27/19 06:10 Dose: 0.5 mcg/min, 1.87 mls/hr Titration: 08/27/19 02:34 Dose: 1 mcg/min, 3.75 mls/hr Titration: 08/27/19 02:28 Dose: 2 mcg/min, 7.5 mls/hr Titration: 08/27/19 02:11 Dose: 0 mcg/min, 0 mls/hr Titration: 08/26/19 23:38 Dose: 0.5 mcg/min, 1.87 mls/hr Titration: 08/26/19 22:44 Dose: 1 mcg/min, 3.75 mls/hr Titration: 08/26/19 22:25 Dose: 2 mcg/min, 7.5 mls/hr Titration: 08/26/19 22:00 Dose: 0 mcg/min, 0 mls/hr Titration: 08/26/19 20:04 Dose: 1 mcg/min, 3.75 mls/hr Titration: 08/26/19 18:10 Dose: 2 mcg/min, 7.5 mls/hr Titration: 08/26/19 17:14 Dose: 3 mcg/min, 11.25 mls/hr Titration: 08/26/19 16:40 Dose: 4 mcg/min, 15 mls/hr Titration: 08/26/19 14:46 Dose: 5 mcg/min, 18.75 mls/hr Titration: 08/26/19 14:35 Dose: 6 mcg/min, 22.5 mls/hr Titration: 08/26/19 14:10 Dose: 7 mcg/min, 26.25 mls/hr Titration: 08/26/19 13:03 Dose: 8 mcg/min, 30 mls/hr Admin: 08/26/19 12:48 Dose: 9 mcg/min, 33.75 mls/hr Titration: 08/26/19 12:48 Dose: 11.5 mcg/min, 43.12 mls/hr Titration: 08/26/19 09:17 Dose: 11.5 mcg/min, 43.12 mls/hr Titration: 08/26/19 09:05 Dose: 12 mcg/min, 45 mls/hr Titration: 08/26/19 08:30 Dose: 11 mcg/min, 41.25 mls/hr Titration: 08/26/19 08:00 Dose: 10 mcg/min, 37.5 mls/hr Titration: 08/26/19 07:37 Dose: 9 mcg/min, 33.75 mls/hr Titration: 08/26/19 07:30 Dose: 10 mcg/min, 37.5 mls/hr Titration: 08/26/19 07:23 Dose: 8 mcg/min, 30 mls/hr Admin: 08/26/19 06:38 Dose: 5 mcg/min, 18.75 mls/hr Titration: 08/25/19 20:22 Dose: 10 mcg/min, 37.5 mls/hr Titration: 08/25/19 18:37 Dose: 6 mcg/min, 22.5 mls/hr Titration: 08/25/19 17:40 Dose: 5 mcg/min, 18.75 mls/hr Titration: 08/25/19 14:33 Dose: 17 mcg/min, 63.75 mls/hr Admin: 08/25/19 14:28 Dose: 15 mcg/min, 56.25 mls/hr Titration: 08/25/19 11:06 Dose: 11 mcg/min, 41.25 mls/hr Titration: 08/25/19 07:51 Dose: 7 mcg/min, 26.25 mls/hr Titration: 08/25/19 06:56 Dose: 5 mcg/min, 18.75 mls/hr Titration: 08/24/19 22:16 Dose: 4 mcg/min, 15 mls/hr Admin: 08/24/19 16:47 Dose: 2 mcg/min, 7.5 mls/hr Dopamine HCl/Dextrose (Dopamine In D5w 400 Mg/250 Ml) 400 mg in 250 mls @ 5.457 mls/hr IV TITRATE [facility]UY; Protocol Last Titration: 08/26/19 15:20 Dose: 0 mcg/kg/min, 0 mls/hr Titration: 08/26/19 15:03 Dose: 0.5 mcg/kg/min, 1.364 mls/hr Titration: 08/26/19 07:23 Dose: 1 mcg/kg/min, 2.728 mls/hr Titration: 08/26/19 07:00 Dose: 2.5 mcg/kg/min, 6.821 mls/hr Titration: 08/26/19 06:53 Dose: 5 mcg/kg/min, 13.642 mls/hr Titration: 08/26/19 06:53 Dose: 10 mcg/kg/min, 27.284 mls/hr Titration: 08/26/19 06:37 Dose: 5 mcg/kg/min, 13.642 mls/hr Titration: 08/26/19 06:31 Dose: 10 mcg/kg/min, 27.284 mls/hr Admin: 08/26/19 05:12 Dose: 15 mcg/kg/min, 40.925 mls/hr Titration: 08/26/19 04:50 Dose: 17.5 mcg/kg/min, 47.746 mls/hr Titration: 08/26/19 01:33 Dose: 17.5 mcg/kg/min, 47.746 mls/hr Admin: 08/25/19 23:15 Dose: 15 mcg/kg/min, 40.925 mls/hr Titration: 08/25/19 23:14 Dose: 12 mcg/kg/min, 32.74 mls/hr Titration: 08/25/19 18:37 Dose: 12 mcg/kg/min, 32.74 mls/hr Titration: 08/25/19 17:45 Dose: 10 mcg/kg/min, 27.284 mls/hr Titration: 08/25/19 17:38 Dose: 12 mcg/kg/min, 32.74 mls/hr Titration: 08/25/19 16:20 Dose: 13 mcg/kg/min, 35.469 mls/hr Titration: 08/25/19 15:38 Dose: 11 mcg/kg/min, 30.012 mls/hr Titration: 08/25/19 15:30 Dose: 6 mcg/kg/min, 16.37 mls/hr Titration: 08/25/19 15:28 Dose: 4 mcg/kg/min, 10.913 mls/hr Titration: 08/25/19 15:23 Dose: 3 mcg/kg/min, 8.185 mls/hr Admin: 08/25/19 15:16 Dose: 2 mcg/kg/min, 5.457 mls/hr Albumin Human (Flexbumin 25%) 12.5 gm in 50 mls @ 100 mls/hr IV Q8H CHUY Stop: 08/29/19 07:01 Last Admin: 08/27/19 14:02 Dose: 100 mls/hr Infusion: 08/27/19 06:30 Dose: 100 mls/hr Admin: 08/27/19 06:00 Dose: 100 mls/hr Infusion: 08/26/19 23:32 Dose: 100 mls/hr Admin: 08/26/19 23:02 Dose: 100 mls/hr Infusion: 08/26/19 14:32 Dose: 100 mls/hr Admin: 08/26/19 14:02 Dose: 100 mls/hr Infusion: 08/26/19 06:49 Dose: 100 mls/hr Admin: 08/26/19 06:19 Dose: 100 mls/hr Piperacillin Sod/Tazobactam (Sod 4.5 gm/ Sodium Chloride) 100 mls @ 25 mls/hr IV Q12H [facility]UY Last Admin: 08/27/19 05:09 Dose: 25 mls/hr Infusion: 08/26/19 22:10 Dose: 25 mls/hr Admin: 08/26/19 18:10 Dose: 25 mls/hr Potassium Cl/Dextrose/Lact Ringer's (D5 Lr With 20 Meq Kcl) 1,000 mls @ 100 mls /hr IV ASDIRECTED [facility]UY Last Admin: 08/27/19 11:42 Dose: 100 mls/hr Pantoprazole Sodium (Protonix Iv) 40 mg IVPUSH DAILY [facility] Last Admin: 08/27/19 08:34 Dose: 40 mg Admin: 08/26/19 08:40 Dose: 40 mg Admin: 08/25/19 08:19 Dose: 40 mg Sodium Chloride (Saline Flush) 10 ml FLUSH ASDIRECTED PRN PRN Reason: Keep Vein Open Last Admin: 08/24/19 08:14 Dose: 10 ml - Assessment Assessment (Free Text/Narrative):: POD 3 s/p ex lap, SBR and Right hemicolectomy for ischemic bowel necrosis. Also has UTI and PNA. Progressing well. Off pressors today, making urine, improving ventillator settings. - Plan Plan (Free Text/Narrative):: - Continue anticoagulation - Incision looks good. Minor serous drainage. Place dry gauze and tape. Change daily of when saturated - No bowel function yet, NGT output has decreased. Please start trickle tube feeds today at 10cc/hr. Check residuals q8hrs if > 500mL, hold tube feeds for 2 hours, place NGT to suction and start patient on Reglan 5mg TID for gastric motility. Then restart trickle feeds again after 2 hrs. Residuals < 500, continue TF at 10 cc/hr. If residuals < 300 mL, can advance to 20 ml/hr but do not exceed 20ml/hr today.
[2019-08-28] MEDS: Hydrocortisone Sodium Succinate 100 MG/2 ML SDV IV SCH ×3 (03:00→18:03)
[2019-08-28] MEDS: Piperacillin/Tazobactam 4.5 GM in Sodium Chloride 0.9% 100 ML IV SCH ×2 (05:16→18:03)
[2019-08-28] MEDS: Albumin 25% 12.5 GM/50 ML BAG IV SCH ×3 (06:11→22:57)
--- NOTE | 2019-08-28 07:15 | PCM.SURGPN ---
- General Info Date of Service: 08/28/19 POD#: 4 Post-Op Diagnosis: PNA, UTI, Bowel necrosis Functional Status: Reports: Pain Controlled - Patient Data Vitals - Most Recent: Last Vital Signs Temp 97.6 F 08/28/19 06:00 Pulse 59 L 08/28/19 06:15 Resp 14 08/28/19 06:15 BP 112/52 L 08/28/19 06:00 Pulse Ox 99 08/28/19 06:15 Weight - Most Recent: 89.358 kg I&O - Last 24 Hours: Intake & Output 08/27/19 08/28/19 08/28/19 22:59 06:59 14:59 Intake Total 1349 1830 Output Total 530 280 Balance 819 1550 Lab Results Last 24 Hrs: Laboratory Results - last 24 hr 08/24/19 08/27/19 08/28/19 Range/Units 08:06 04:40 01:51 POC Glucose 142 H (83-110) mg/dL Procalcitonin 22.85 H (<0.10) ng/mL Crossmatch See Detail Gerardo Results Last 24 Hrs: Microbiology 08/24/19 12:16 Aerobic Blood Culture - Preliminary Blood - Venous NO GROWTH AFTER 3 DAYS Anaerobic Blood Culture - Preliminary NO GROWTH AFTER 3 DAYS 08/24/19 12:24 Aerobic Blood Culture - Preliminary Blood - Venous - Lab Draw NO GROWTH AFTER 3 DAYS Anaerobic Blood Culture - Preliminary NO GROWTH AFTER 3 DAYS Med Orders - Current: Current Medications Bumetanide (Bumex) 1 mg IVPUSH BID [facility] Last Admin: 08/27/19 20:45 Dose: 1 mg Enoxaparin Sodium (Lovenox) 70 mg SUBCUT Q24H [facility] Last Admin: 08/27/19 11:41 Dose: 70 mg Hydrocortisone Sodium Succinate (Solu-Cortef) 50 mg IV Q8H [facility] Last Admin: 08/28/19 03:00 Dose: 50 mg Fentanyl 2,500 mcg/ Sodium (Chloride) 250 mls @ 7.27 mls/hr IV TITRATE [facility]; Protocol Last Titration: 08/28/19 04:23 Dose: 0 mcg/kg/hr, 0 mls/hr Norepinephrine Bitartrate 4 mg (/ Dextrose/Water) 250 mls @ 7.5 mls/hr IV TITRATE [facility]; Protocol Last Titration: 08/27/19 07:25 Dose: 0 mcg/min, 0 mls/hr Dopamine HCl/Dextrose (Dopamine In D5w 400 Mg/250 Ml) 400 mg in 250 mls @ 5.457 mls/hr IV TITRATE [facility]; Protocol Last Titration: 08/26/19 15:20 Dose: 0 mcg/kg/min, 0 mls/hr Albumin Human (Flexbumin 25%) 12.5 gm in 50 mls @ 100 mls/hr IV Q8H [facility] Stop: 08/29/19 07:01 Last Admin: 08/28/19 06:11 Dose: 100 mls/hr Piperacillin Sod/Tazobactam (Sod 4.5 gm/ Sodium Chloride) 100 mls @ 25 mls/hr IV Q12H [facility] Last Admin: 08/28/19 05:16 Dose: 25 mls/hr Potassium Cl/Dextrose/Lact Ringer's (D5 Lr With 20 Meq Kcl) 1,000 mls @ 100 mls /hr IV ASDIRECTED [facility] Last Admin: 08/27/19 21:50 Dose: 100 mls/hr Pantoprazole Sodium (Protonix Iv) 40 mg IVPUSH DAILY [facility] Last Admin: 08/27/19 08:34 Dose: 40 mg Sodium Chloride (Saline Flush) 10 ml FLUSH ASDIRECTED PRN PRN Reason: Keep Vein Open Last Admin: 08/24/19 08:14 Dose: 10 ml Discontinued Medications Atropine Sulfate (Atropine 0.1 Mg/Ml) 0.5 mg IVPUSH ONETIME ONE Stop: 08/27/19 07:57 Last Admin: 08/27/19 08:09 Dose: 0.5 mg Bumetanide (Bumex) 1 mg IVPUSH ONETIME ONE Stop: 08/25/19 22:49 Last Admin: 08/26/19 00:07 Dose: 1 mg Dextrose/Water (Dextrose 50% In Water) 25 ml IVPUSH NOW STA Stop: 08/27/19 05:41 Last Admin: 08/27/19 05:47 Dose: 25 ml Ephedrine Sulfate (Ephedrine In Ns) Confirm Administered Dose 25 mg .ROUTE .STK- MED ONE Stop: 08/24/19 21:32 Etomidate (Amidate) 40 mg IVPUSH .STK-MED ONE Stop: 08/24/19 15:01 Fentanyl (Sublimaze) Confirm Administered Dose 250 mcg .ROUTE .STK-MED ONE Stop: 08/24/19 18:10 Heparin Sodium (Porcine) (Heparin Sodium) 5,000 units IVPUSH .BOLUS ONE Stop: 08/25/19 13:27 Last Admin: 08/25/19 14:11 Dose: 5,000 units Heparin Sodium (Porcine) (Heparin Lock Flush 100 Units/Ml) Confirm Administered Dose 500 units .ROUTE .STK-MED ONE Stop: 08/25/19 22:38 Last Admin: 08/25/19 23:02 Dose: 500 units Hydromorphone HCl (Dilaudid) 0.5 mg IVPUSH ONETIME ONE Stop: 08/24/19 07:28 Last Admin: 08/24/19 08:15 Dose: 0.5 mg Sodium Chloride (Normal Saline) 1,000 mls @ 1,000 mls/hr IV .BOLUS STA Stop: 08/24/19 08:25 Last Admin: 08/24/19 08:13 Dose: 1,000 mls/hr Cefepime HCl 2 gm/ Premix 50 mls @ 100 mls/hr IV ONETIME ONE Stop: 08/24/19 13:18 Last Admin: 08/24/19 13:19 Dose: 100 mls/hr Lactated Ringer's (Ringers, Lactated) 1,100 mls @ 1,000 mls/hr IV .BOLUS ONE Stop: 08/24/19 14:13 Last Admin: 08/24/19 13:40 Dose: 1,000 mls/hr Levofloxacin/Dextrose 750 mg/ (Premix) 150 mls @ 100 mls/hr IV ONETIME ONE Stop: 08/24/19 15:07 Last Admin: 08/24/19 16:03 Dose: 100 mls/hr Piperacillin Sod/Tazobactam (Sod 4.5 gm/ Sodium Chloride) 100 mls @ 25 mls/hr IV Q8H [facility] Last Admin: 08/26/19 05:13 Dose: 25 mls/hr Vancomycin HCl 1 gm/ Sodium (Chloride) 250 mls @ 250 mls/hr IV ONETIME ONE Stop: 08/24/19 14:37 Last Admin: 08/24/19 16:06 Dose: 250 mls/hr Midazolam HCl 50 mg/ Sodium (Chloride) 50 mls @ 0.5 mls/hr IV TITRATE [facility]; Protocol Stop: 08/25/19 15:29 Last Titration: 08/25/19 11:57 Dose: 2 mg/hr, 2 mls/hr Lactated Ringer's (Ringers, Lactated) 1,000 mls @ 125 mls/hr IV ASDIRECTED [facility] Last Admin: 08/25/19 01:00 Dose: 125 mls/hr Sodium Chloride (Normal Saline) Confirm Administered Dose 1,000 mls @ as directed .ROUTE .STK-MED ONE Stop: 08/24/19 17:09 Last Admin: 08/24/19 17:16 Dose: 1 mls/hr Lactated Ringer's (Ringers, Lactated) Confirm Administered Dose 1,000 mls @ as directed .ROUTE .STK-MED ONE Stop: 08/24/19 18:34 Lactated Ringer's (Ringers, Lactated) Confirm Administered Dose 1,000 mls @ as directed .ROUTE .STK-MED ONE Stop: 08/24/19 19:10 Lactated Ringer's (Ringers, Lactated) Confirm Administered Dose 1,000 mls @ as directed .ROUTE .STK-MED ONE Stop: 08/24/19 19:46 Lactated Ringer's (Ringers, Lactated) Confirm Administered Dose 1,000 mls @ as directed .ROUTE .STK-MED ONE Stop: 08/24/19 20:40 Lactated Ringer's (Ringers, Lactated) 1,000 mls @ 250 mls/hr IV ASDIRECTED [facility] Last Infusion: 08/26/19 12:28 Dose: Infused Lactated Ringer's (Ringers, Lactated) 1,000 mls @ 999 mls/hr IV .BOLUS ONE Stop: 08/25/19 09:03 Last Admin: 08/25/19 08:10 Dose: 999 mls/hr Heparin Sodium/Dextrose (Heparin 25,000 Units In D5w 500 Ml) 25,000 units in 500 mls @ 26 mls/hr IV TITRATE [facility]; Protocol Last Admin: 08/26/19 08:24 Dose: 22 units/kg/hr, 32.013 mls/hr Lactated Ringer's (Ringers, Lactated) 2,000 mls @ 999 mls/hr IV .BOLUS ONE Stop: 08/25/19 17:52 Last Admin: 08/25/19 16:11 Dose: 999 mls/hr Lactated Ringer's (Ringers, Lactated) 1,000 mls @ 999 mls/hr IV .BOLUS ONE Stop: 08/25/19 17:13 Last Admin: 08/25/19 16:48 Dose: 999 mls/hr Midazolam HCl 50 mg/ Sodium (Chloride) 50 mls @ 0.5 mls/hr IV TITRATE [facility]; Protocol Last Titration: 08/27/19 07:55 Dose: 0 mg/hr, 0 mls/hr Albumin Human (Flexbumin 25%) 25 gm in 100 mls @ 100 mls/hr IV Q1H [facility] Stop: 08/26/19 00:46 Last Admin: 08/26/19 00:07 Dose: 100 mls/hr Lactated Ringer's (Ringers, Lactated) 1,000 mls @ 200 mls/hr IV ASDIRECTED [facility] Last Infusion: 08/26/19 12:30 Dose: 100 mls/hr Magnesium Sulfate 4 gm/ Premix 100 mls @ 25 mls/hr IV ONETIME ONE Stop: 08/26/19 07:31 Last Admin: 08/26/19 06:48 Dose: 25 mls/hr Lactated Ringer's (Ringers, Lactated) 1,000 mls @ 100 mls/hr IV ASDIRECTED [facility] Last Admin: 08/26/19 18:09 Dose: 100 mls/hr Dextrose/Water (Dextrose 10% In Water) 1,000 mls @ 25 mls/hr IV ASDIRECTED [facility] Dextrose/Water (Dextrose 10% In Water) 1,000 mls @ 25 mls/hr IV ASDIRECTED [facility] Last Admin: 08/27/19 05:52 Dose: 25 mls/hr Dextrose/Water (Dextrose 10% In Water) Confirm Administered Dose 1,000 mls @ as directed .ROUTE .STK-MED ONE Stop: 08/27/19 05:47 Last Admin: 08/27/19 05:56 Dose: Not Given Potassium Chloride 10 meq/ (Premix) 100 mls @ 100 mls/hr IV Q1H [facility] Stop: 08/27/19 12:59 Last Admin: 08/27/19 12:55 Dose: 100 mls/hr Norepinephrine Bitartrate (Levophed) Confirm Administered Dose 4 mg .ROUTE .STK- MED ONE Stop: 08/24/19 16:39 Last Admin: 08/24/19 16:47 Dose: Not Given Ondansetron HCl (Zofran) 4 mg IVPUSH ONETIME ONE Stop: 08/24/19 07:27 Last Admin: 08/24/19 08:13 Dose: 4 mg Succinylcholine Chloride (Quelicin) 200 mg .ROUTE .STK-MED ONE Stop: 08/24/19 15:01 Vecuronium [place] (Vecuronium) Confirm Administered Dose 10 mg .ROUTE .STK-MED ONE Stop: 08/24/19 20:13 - Exam Wound/Incisions: Healing Well, Drainage (mild amount of drainage from the incision) Quality Assessment: Supplemental Oxygen (intubated) General: Other (intubated, mildly dsated but awake. Opens eyes spontaneously) Cardiovascular: Regular Rate, Regular Rhythm, No Murmurs GI/Abdominal Exam: Soft, Non-Tender, Distended (mildly) Sepsis Event Note - Evaluation Sepsis Screening Result: No Definite Risk - Focused Exam Vital Signs: Vital Signs Temp Pulse Resp BP Pulse Ox 08/28/19 06:15 59 L 14 99 08/28/19 06:01 58 L 14 98 08/28/19 06:00 97.6 F 58 L 14 112/52 L 98 08/28/19 05:59 58 L 14 99 08/28/19 05:45 60 14 99 08/28/19 05:31 60 14 99 08/28/19 05:30 62 14 112/56 L 98 08/28/19 05:29 60 14 99 08/28/19 05:15 58 L 14 99 08/28/19 05:01 57 L 14 99 08/28/19 05:00 97.4 F 57 L 14 99/52 L 96 08/28/19 04:59 56 L 14 98 08/28/19 04:45 57 L 14 98 08/28/19 04:31 56 L 14 99 08/28/19 04:30 56 L 14 100/51 L 96 08/28/19 04:29 64 14 98 08/28/19 04:15 56 L 14 98 08/28/19 04:01 57 L 14 98 08/28/19 04:00 97.4 F 56 L 14 97/50 L 95 08/28/19 03:59 56 L 14 98 08/28/19 03:45 56 L 14 98 08/28/19 03:31 56 L 14 98 08/28/19 03:30 57 L 14 97/49 L 96 08/28/19 03:29 57 L 14 98 08/28/19 03:15 53 L 14 99 08/28/19 03:01 51 L 14 94/54 L 99 08/28/19 03:00 97.3 F 63 14 97 08/28/19 02:45 54 L 14 99 08/28/19 02:31 54 L 14 102/56 L 99 08/28/19 02:30 53 L 14 98 08/28/19 02:15 57 L 14 99 08/28/19 02:01 55 L 14 109/56 L 99 08/28/19 02:00 97.4 F 59 L 14 96 08/28/19 01:45 56 L 14 99 08/28/19 01:31 54 L 14 95/50 L 99 08/28/19 01:30 52 L 14 97 08/28/19 01:15 56 L 14 99 08/28/19 01:01 57 L 14 95/50 L 98 08/28/19 01:00 97.3 F 55 L 14 97 08/28/19 00:45 57 L 14 98 08/28/19 00:31 54 L 14 93/48 L 98 08/28/19 00:30 54 L 14 97 08/28/19 00:15 54 L 14 98 08/28/19 00:01 56 L 14 101/45 L 98 08/28/19 00:00 62 14 98 08/27/19 23:45 69 14 98 08/27/19 23:31 66 14 95/49 L 98 08/27/19 23:30 65 14 97 08/27/19 23:15 63 14 98 08/27/19 23:03 62 14 98 08/27/19 23:01 63 14 94/57 L 98 08/27/19 23:00 97 F 64 14 97 08/27/19 22:45 63 14 98 08/27/19 22:31 64 14 98/50 L 98 08/27/19 22:30 62 14 98 08/27/19 22:15 63 14 98 08/27/19 22:01 63 14 91/53 L 98 08/27/19 22:00 97.1 F 57 L 14 97 08/27/19 21:45 63 14 98 08/27/19 21:31 62 14 91/51 L 98 08/27/19 21:30 62 14 98 08/27/19 21:15 65 14 98 08/27/19 21:01 66 13 98 08/27/19 21:00 97 F 67 14 89/62 L 98 08/27/19 20:59 65 14 98 08/27/19 20:45 63 14 98 08/27/19 20:31 63 14 98 08/27/19 20:30 60 14 100/46 L 97 08/27/19 20:29 65 14 98 08/27/19 20:15 66 14 98 08/27/19 20:01 59 L 14 98 08/27/19 20:00 97.1 F 66 14 102/52 L 97 08/27/19 19:59 68 14 98 08/27/19 19:45 52 L 14 98 08/27/19 19:31 65 14 98 08/27/19 19:30 65 14 90/50 L 95 08/27/19 19:29 64 14 97 08/27/19 19:15 53 L 14 97 Date Exam was Performed: 08/28/19 Time Exam was Performed: 07:10 - Problem List Review Problem List Initiated/Reviewed/Updated: No - My Orders Last 24 Hours: Active Orders 24 hr Category Date Time Status Tube Feeding Pediatric Diet [DIET] Diet 08/27/19 Dinner Active Dextrose 5%-Lact Ringers w/KCl [D5 LR with 20 mEq KCl] Med 08/27/19 11:00 Active 1,000 ml IV ASDIRECTED Medication Orders Bumetanide (Bumex) 1 mg IVPUSH BID [facility] Last Admin: 08/27/19 20:45 Dose: 1 mg Admin: 08/27/19 08:34 Dose: 1 mg Admin: 08/26/19 21:43 Dose: 1 mg Enoxaparin Sodium (Lovenox) 70 mg SUBCUT Q24H [facility] Last Admin: 08/27/19 11:41 Dose: 70 mg Admin: 08/26/19 11:10 Dose: 70 mg Hydrocortisone Sodium Succinate (Solu-Cortef) 50 mg IV Q8H [facility] Last Admin: 08/28/19 03:00 Dose: 50 mg Admin: 08/27/19 18:34 Dose: 50 mg Admin: 08/27/19 11:41 Dose: 50 mg Admin: 08/27/19 03:03 Dose: 50 mg Admin: 08/26/19 18:11 Dose: 50 mg Admin: 08/26/19 11:09 Dose: 50 mg Fentanyl 2,500 mcg/ Sodium (Chloride) 250 mls @ 7.27 mls/hr IV TITRATE [facility]; Protocol Last Titration: 08/28/19 04:23 Dose: 0 mcg/kg/hr, 0 mls/hr Titration: 08/27/19 20:34 Dose: 2 mcg/kg/hr, 14.55 mls/hr Titration: 08/27/19 07:55 Dose: 0 mcg/kg/hr, 0 mls/hr Admin: 08/26/19 18:11 Dose: 1.09 mcg/kg/hr, 8 mls/hr Titration: 08/26/19 15:51 Dose: 1.09 mcg/kg/hr, 8 mls/hr Titration: 08/26/19 14:43 Dose: 1.09 mcg/kg/hr, 8 mls/hr Titration: 08/26/19 11:55 Dose: 1.23 mcg/kg/hr, 9 mls/hr Admin: 08/25/19 14:20 Dose: 1.37 mcg/kg/hr, 10 mls/hr Titration: 08/25/19 14:20 Dose: 1.37 mcg/kg/hr, 10 mls/hr Titration: 08/25/19 02:29 Dose: 1.37 mcg/kg/hr, 10 mls/hr Titration: 08/24/19 23:18 Dose: 0.68 mcg/kg/hr, 5 mls/hr Titration: 08/24/19 17:45 Dose: 0 mcg/kg/hr, 0 mls/hr Titration: 08/24/19 16:13 Dose: 0.96 mcg/kg/hr, 7 mls/hr Admin: 08/24/19 16:12 Dose: 1 mcg/kg/hr, 7.27 mls/hr Norepinephrine Bitartrate 4 mg (/ Dextrose/Water) 250 mls @ 7.5 mls/hr IV TITRATE [facility]; Protocol Last Titration: 08/27/19 07:25 Dose: 0 mcg/min, 0 mls/hr Titration: 08/27/19 06:10 Dose: 0.5 mcg/min, 1.87 mls/hr Titration: 08/27/19 02:34 Dose: 1 mcg/min, 3.75 mls/hr Titration: 08/27/19 02:28 Dose: 2 mcg/min, 7.5 mls/hr Titration: 08/27/19 02:11 Dose: 0 mcg/min, 0 mls/hr Titration: 08/26/19 23:38 Dose: 0.5 mcg/min, 1.87 mls/hr Titration: 08/26/19 22:44 Dose: 1 mcg/min, 3.75 mls/hr Titration: 08/26/19 22:25 Dose: 2 mcg/min, 7.5 mls/hr Titration: 08/26/19 22:00 Dose: 0 mcg/min, 0 mls/hr Titration: 08/26/19 20:04 Dose: 1 mcg/min, 3.75 mls/hr Titration: 08/26/19 18:10 Dose: 2 mcg/min, 7.5 mls/hr Titration: 08/26/19 17:14 Dose: 3 mcg/min, 11.25 mls/hr Titration: 08/26/19 16:40 Dose: 4 mcg/min, 15 mls/hr Titration: 08/26/19 14:46 Dose: 5 mcg/min, 18.75 mls/hr Titration: 08/26/19 14:35 Dose: 6 mcg/min, 22.5 mls/hr Titration: 08/26/19 14:10 Dose: 7 mcg/min, 26.25 mls/hr Titration: 08/26/19 13:03 Dose: 8 mcg/min, 30 mls/hr Admin: 08/26/19 12:48 Dose: 9 mcg/min, 33.75 mls/hr Titration: 08/26/19 12:48 Dose: 11.5 mcg/min, 43.12 mls/hr Titration: 08/26/19 09:17 Dose: 11.5 mcg/min, 43.12 mls/hr Titration: 08/26/19 09:05 Dose: 12 mcg/min, 45 mls/hr Titration: 08/26/19 08:30 Dose: 11 mcg/min, 41.25 mls/hr Titration: 08/26/19 08:00 Dose: 10 mcg/min, 37.5 mls/hr Titration: 08/26/19 07:37 Dose: 9 mcg/min, 33.75 mls/hr Titration: 08/26/19 07:30 Dose: 10 mcg/min, 37.5 mls/hr Titration: 08/26/19 07:23 Dose: 8 mcg/min, 30 mls/hr Admin: 08/26/19 06:38 Dose: 5 mcg/min, 18.75 mls/hr Titration: 08/25/19 20:22 Dose: 10 mcg/min, 37.5 mls/hr Titration: 08/25/19 18:37 Dose: 6 mcg/min, 22.5 mls/hr Titration: 08/25/19 17:40 Dose: 5 mcg/min, 18.75 mls/hr Titration: 08/25/19 14:33 Dose: 17 mcg/min, 63.75 mls/hr Admin: 08/25/19 14:28 Dose: 15 mcg/min, 56.25 mls/hr Titration: 08/25/19 11:06 Dose: 11 mcg/min, 41.25 mls/hr Titration: 08/25/19 07:51 Dose: 7 mcg/min, 26.25 mls/hr Titration: 08/25/19 06:56 Dose: 5 mcg/min, 18.75 mls/hr Titration: 08/24/19 22:16 Dose: 4 mcg/min, 15 mls/hr Admin: 08/24/19 16:47 Dose: 2 mcg/min, 7.5 mls/hr Dopamine HCl/Dextrose (Dopamine In D5w 400 Mg/250 Ml) 400 mg in 250 mls @ 5.457 mls/hr IV TITRATE [facility]; Protocol Last Titration: 08/26/19 15:20 Dose: 0 mcg/kg/min, 0 mls/hr Titration: 08/26/19 15:03 Dose: 0.5 mcg/kg/min, 1.364 mls/hr Titration: 08/26/19 07:23 Dose: 1 mcg/kg/min, 2.728 mls/hr Titration: 08/26/19 07:00 Dose: 2.5 mcg/kg/min, 6.821 mls/hr Titration: 08/26/19 06:53 Dose: 5 mcg/kg/min, 13.642 mls/hr Titration: 08/26/19 06:53 Dose: 10 mcg/kg/min, 27.284 mls/hr Titration: 08/26/19 06:37 Dose: 5 mcg/kg/min, 13.642 mls/hr Titration: 08/26/19 06:31 Dose: 10 mcg/kg/min, 27.284 mls/hr Admin: 08/26/19 05:12 Dose: 15 mcg/kg/min, 40.925 mls/hr Titration: 08/26/19 04:50 Dose: 17.5 mcg/kg/min, 47.746 mls/hr Titration: 08/26/19 01:33 Dose: 17.5 mcg/kg/min, 47.746 mls/hr Admin: 08/25/19 23:15 Dose: 15 mcg/kg/min, 40.925 mls/hr Titration: 08/25/19 23:14 Dose: 12 mcg/kg/min, 32.74 mls/hr Titration: 08/25/19 18:37 Dose: 12 mcg/kg/min, 32.74 mls/hr Titration: 08/25/19 17:45 Dose: 10 mcg/kg/min, 27.284 mls/hr Titration: 08/25/19 17:38 Dose: 12 mcg/kg/min, 32.74 mls/hr Titration: 08/25/19 16:20 Dose: 13 mcg/kg/min, 35.469 mls/hr Titration: 08/25/19 15:38 Dose: 11 mcg/kg/min, 30.012 mls/hr Titration: 08/25/19 15:30 Dose: 6 mcg/kg/min, 16.37 mls/hr Titration: 08/25/19 15:28 Dose: 4 mcg/kg/min, 10.913 mls/hr Titration: 08/25/19 15:23 Dose: 3 mcg/kg/min, 8.185 mls/hr Admin: 08/25/19 15:16 Dose: 2 mcg/kg/min, 5.457 mls/hr Albumin Human (Flexbumin 25%) 12.5 gm in 50 mls @ 100 mls/hr IV Q8H [facility] Stop: 08/29/19 07:01 Last Admin: 08/28/19 06:11 Dose: 100 mls/hr Infusion: 08/27/19 23:34 Dose: 100 mls/hr Admin: 08/27/19 23:04 Dose: 100 mls/hr Infusion: 08/27/19 14:32 Dose: 100 mls/hr Admin: 08/27/19 14:02 Dose: 100 mls/hr Infusion: 08/27/19 06:30 Dose: 100 mls/hr Admin: 08/27/19 06:00 Dose: 100 mls/hr Infusion: 08/26/19 23:32 Dose: 100 mls/hr Admin: 08/26/19 23:02 Dose: 100 mls/hr Infusion: 08/26/19 14:32 Dose: 100 mls/hr Admin: 08/26/19 14:02 Dose: 100 mls/hr Infusion: 08/26/19 06:49 Dose: 100 mls/hr Admin: 08/26/19 06:19 Dose: 100 mls/hr Piperacillin Sod/Tazobactam (Sod 4.5 gm/ Sodium Chloride) 100 mls @ 25 mls/hr IV Q12H [facility] Last Admin: 08/28/19 05:16 Dose: 25 mls/hr Infusion: 08/27/19 22:35 Dose: 25 mls/hr Admin: 08/27/19 18:35 Dose: 25 mls/hr Infusion: 08/27/19 09:09 Dose: 25 mls/hr Admin: 08/27/19 05:09 Dose: 25 mls/hr Infusion: 08/26/19 22:10 Dose: 25 mls/hr Admin: 08/26/19 18:10 Dose: 25 mls/hr Potassium Cl/Dextrose/Lact Ringer's (D5 Lr With 20 Meq Kcl) 1,000 mls @ 100 mls /hr IV ASDIRECTED [facility] Last Admin: 08/27/19 21:50 Dose: 100 mls/hr Infusion: 08/27/19 21:42 Dose: 100 mls/hr Admin: 08/27/19 11:42 Dose: 100 mls/hr Pantoprazole Sodium (Protonix Iv) 40 mg IVPUSH DAILY [facility] Last Admin: 08/27/19 08:34 Dose: 40 mg Admin: 08/26/19 08:40 Dose: 40 mg Admin: 08/25/19 08:19 Dose: 40 mg Sodium Chloride (Saline Flush) 10 ml FLUSH ASDIRECTED PRN PRN Reason: Keep Vein Open Last Admin: 08/24/19 08:14 Dose: 10 ml - Assessment Assessment (Free Text/Narrative):: Patient is improving. VSS, off pressors. Vent settings improving. No bowel function yet. - Plan Plan (Free Text/Narrative):: - Continue anticoagulation - labs not available yet. Replete electrolytes as needed - Incision with mild drainage. Change dressing daily and when wet/soaked. Dry gauze and tape is sufficient. - Advance TF to 20mL/hr. Check residuals q8hrs. If >500 mL hold TF, start Reglan 5mg TID and place NGT to suction for 2 hours before restarting TF at 10mL /hr. If residuals < 200 mL, continue TF at 20mL/hr. If residuals are 200-500, hold TF for 2 hrs and restart at 10cc/hr. Please call with any questions.
[2019-08-28] MEDS: Dextrose 5%-Lact Ringers w/KCl 1,000 ML IV SCH (08:06)
[2019-08-28] MEDS: Bumetanide 1 MG/4 ML MDV IVPUSH SCH (08:06)
[2019-08-28] MEDS: Pantoprazole 40 MG Vial IVPUSH SCH (08:06)
[2019-08-28] MEDS: Potassium Chloride 10 MEQ in Premix Bag 1 BAG IV SCH ×4 (11:48→15:11)
[2019-08-28] MEDS: Enoxaparin 80 MG/0.8 ML Syringe SUBCUT SCH (11:48)
--- NOTE | 2019-08-28 11:52 | PCM.PN ---
- General Info Date of Service: 08/27/19 Subjective Update: INTERVAL HISTORY: Overnight events: Started having bradycardia around 2:30AM Labs: WBC 25.9--> 17.39 VS Trend: BP: 87-115/46-57 HR: 46-100 Tmax: 97.8 O2 Sat: 90-100% Drips: Versed and FEntanyl paused at 7:55AM for sedation vacation Levophed paused at 7:25AM UO: 2940 Balance: +124/24 hrs BM: not yet MV: Intubation day:08/24 Cultures: pansensitive e coli Nutrition: NPO - Exam General: Sedated HEENT: Mucous Membr. Moist/[place], Other (scleral edema) Neck: Trachea Midline, No Thyromegaly, Lymphadenopathy Lungs: Decreased Breath Sounds, Crackles. No: Rales, Rhonchi, Wheezing Cardiovascular: Regular Rate, Regular Rhythm. No: Murmurs, Gallops, Rubs GI/Abdominal Exam: Distended. No: Normal Bowel Sounds Extremities: Pedal Edema, Slow Capillary Refill Sepsis Event Note - Evaluation Sepsis Screening Result: No Definite Risk - Focused Exam Respiratory Effort Without Exertion: Other (see below) (intubated) Heart Sounds: Other (see below) (bradycardic but rhtymic and synchronic with pulse) Pulse Description: 2+ Normal Peripheral Pulse Location: Radial Skin Exam (Focused Sepsis): Pale (edematous) Date Exam was Performed: 08/28/19 Time Exam was Performed: 17:31 - Bedside Monitoring Bedside Ultrasound Performed: No Date Bedside Monitoring was Performed: 08/28/19 Time Bedside Monitoring was Performed: 17:31 - Problem List & Annotations (1) Aspiration pneumonia SNOMED Code(s): 546305202 Code(s): J69.0 - PNEUMONITIS DUE TO INHALATION OF FOOD AND VOMIT Status: Acute Current Visit: Yes Qualifiers: Aspiration pneumonia type: due to vomit Laterality: bilateral Lung location: lower lobe of lung Qualified Code(s): J69.0 - Pneumonitis due to inhalation of food and vomit (2) Hypoxia SNOMED Code(s): 335521454 Code(s): R09.02 - HYPOXEMIA Status: Acute Current Visit: Yes (3) Ileitis SNOMED Code(s): 49464134 Code(s): K52.9 - NONINFECTIVE GASTROENTERITIS AND COLITIS, UNSPECIFIED Status: Acute Current Visit: Yes (4) Sepsis SNOMED Code(s): 38841792 Code(s): A41.9 - SEPSIS, UNSPECIFIED ORGANISM Status: Acute Current Visit : Yes Qualifiers: Sepsis type: sepsis due to unspecified organism Sepsis acute organ dysfunction status: unspecified Qualified Code(s): A41.9 - Sepsis, unspecified organism (5) UTI (urinary tract infection) SNOMED Code(s): 93755376 Code(s): N39.0 - URINARY TRACT INFECTION, SITE NOT SPECIFIED Status: Acute Current Visit: Yes Qualifiers: Urinary tract infection type: site unspecified Hematuria presence: without hematuria Qualified Code(s): N39.0 - Urinary tract infection, site not specified (6) Abdominal pain SNOMED Code(s): 43349230 Code(s): R10.9 - UNSPECIFIED ABDOMINAL PAIN Status: Acute Current Visit: No Qualifiers: Abdominal location: epigastric Qualified Code(s): R10.13 - Epigastric pain (7) High anion gap metabolic acidosis SNOMED Code(s): 81509805 Code(s): E87.2 - ACIDOSIS Status: Acute Current Visit: Yes (8) Respiratory alkalosis SNOMED Code(s): 769218323 Code(s): E87.3 - ALKALOSIS Status: Acute Current Visit: Yes (9) Acute abdomen SNOMED Code(s): 5811213 Code(s): R10.0 - ACUTE ABDOMEN Status: Acute Current Visit: Yes (10) Acute kidney failure SNOMED Code(s): 83928186 Code(s): N17.9 - ACUTE KIDNEY FAILURE, UNSPECIFIED Status: Acute Current Visit: Yes (11) Chronic kidney disease, stage 3 SNOMED Code(s): 165447484 Code(s): N18.3 - CHRONIC KIDNEY DISEASE, STAGE 3 (MODERATE) Status: Acute Current Visit: Yes (12) Hypothyroidism SNOMED Code(s): 38056266 Code(s): E03.9 - HYPOTHYROIDISM, UNSPECIFIED Status: Acute Current Visit : Yes (13) residential resident SNOMED Code(s): 661274745 Code(s): Z59.3 - PROBLEMS RELATED TO LIVING IN RESIDENTIAL INSTITUTION Status: Acute Current Visit: Yes (14) GERD (gastroesophageal reflux disease) SNOMED Code(s): 835543973 Code(s): K21.9 - GASTRO-ESOPHAGEAL REFLUX DISEASE WITHOUT ESOPHAGITIS Status: Acute Current Visit: No Qualifiers: Esophagitis presence: with esophagitis Qualified Code(s): K21.0 - Gastro- esophageal reflux disease with esophagitis (15) Hypertension SNOMED Code(s): 73441044 Code(s): I10 - ESSENTIAL (PRIMARY) HYPERTENSION Status: Acute Current Visit: No Qualifiers: Hypertension type: essential hypertension (16) Hypokalemia SNOMED Code(s): 67740611 Code(s): E87.6 - HYPOKALEMIA Status: Acute Priority: High Current Visit : No (17) Vascular dementia SNOMED Code(s): 182897836 Code(s): F01.50 - VASCULAR DEMENTIA WITHOUT BEHAVIORAL DISTURBANCE Status: Chronic Current Visit: No Qualifiers: Dementia behavioral disturbance: without behavioral disturbance Qualified Code(s): F01.50 - Vascular dementia without behavioral disturbance - Problem List Review Problem List Initiated/Reviewed/Updated: Yes - Plan Plan:: Septic shock 2/2 UTI/aspiration/Necrotic bowel 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 Rucker Hypothermia Decreased oral intake and complaining of abdominal pain-->Abnormal CT --> surgery consulted--> R hemicolectomy and small bowel resection Central line, arterial line and ETT placed Started on norepinephrine with inadequate BP response--> started on dopamine which improved response PaFiO2 ratio 170 but XR was not compatible with ARDS Dopamine and NE are off PLAN - Discontinue LR - Start Lr + D5 + KCl - Continue Zosyn - NG tube care - NG at intermittent suction - ETT care - VAP bundle - RT f/u - Suction by nursing - Place bear hugger - Start trickle feeds Acute kidney failure, improving High anion gap metabolic acidosis Respiratory alkalosis Chronic kidney disease, stage 3 Lactic acid continues to worsen--> multifactorial with hypoxia and sepsis Urine output has increased significantly PLAN - Monitor urine output - Renally dosed medications - Avoid nephrotoxic agents as much as possible - Change lasix to Bumex GERD (gastroesophageal reflux disease) No acute issues Needs stress ulcer prophylaxis due to ETT PLAN - Scheduled IV Pantoprazole Hypertension BP on admission stable Started dropping perioperatively requireing vasopressors PLAN - Hold home losartan Hypothyroidism No acute issues PLAN - Continue home meds once available Vascular dementia residential resident Requires 1 assist for bed mobility, transfer, dressing, personal hygiene and bathing 2 assist for ambulation Continent for bowel PROPHYLAXIS DVT- SCDs GI- pantoprazole CODE STATUS: FULL CODE DISPOSITION: Patient admitted to the ICU for vasopressors and mechanical ventilation. Taken to OR .14 with subsequent bowel resection. Patient's overall prognosis is very poor with [place] score or 32, predicted mortality of 74%; family aware. Patient will need hospitalization for > 96 hours due to prolonged septic shock with hypoxemia, will do spontaneous breathing trial in the AM to assess if she is able to be extubated. Is currently of vasopressors since this morning.
--- NOTE | 2019-08-28 13:59 | PCM.PN ---
- General Info Date of Service: 08/28/19 Subjective Update: INTERVAL HISTORY: Overnight events: Placed on Fentanyl drip from 20:34 to 4:23 VS Trend: BP: 87-115/46-57 HR: 46-100 Tmax: 97.8 O2 Sat: 90-100% Drips: Fentanyl off since 4:20AM UO: 2130 Balance: +1130/24 hrs and +9642 since admission BM: not yet MV: Intubation day:08/24 Cultures: pansensitive e coli in urine Nutrition: Trickle feeds Vital AF at 20 ml/hr 10mL free water every 8 hours Residuals 60ml - Patient Data Vitals - Most Recent: Last Vital Signs Temp 98.6 F 08/28/19 12:00 Pulse 65 08/28/19 07:01 Resp 14 08/28/19 07:01 BP 110/60 08/28/19 07:00 Pulse Ox 92 L 08/28/19 12:30 Weight - Most Recent: 89.358 kg - Exam General: Sedated HEENT: Pupils Equal, Pupils Reactive, Other (scleral edema improved) Neck: Trachea Midline, No Thyromegaly. No: Lymphadenopathy Lungs: Decreased Breath Sounds, Crackles Cardiovascular: Regular Rate, Regular Rhythm. No: Murmurs, Gallops, Rubs GI/Abdominal Exam: Soft, Abnormal Bowel Sounds Extremities: Pedal Edema, Slow Capillary Refill, Other (+2 piting edema BL U + LE) Skin: Warm, Dry Wound/Incisions: Healing Well Sepsis Event Note - Evaluation Sepsis Screening Result: No Definite Risk - Focused Exam Vital Signs: Vital Signs Temp Pulse Resp BP Pulse Ox Pulse Ox 08/28/19 12:30 92 L 08/28/19 12:00 98.6 F 08/28/19 11:15 92 L 08/28/19 11:13 89 L 08/28/19 09:49 97 08/28/19 08:00 97.9 F 99 08/28/19 07:01 65 14 99 08/28/19 07:00 62 14 110/60 99 08/28/19 06:59 61 14 98 08/28/19 06:45 60 14 99 08/28/19 06:31 61 14 99 08/28/19 06:30 60 14 114/57 L 99 08/28/19 06:29 61 14 98 08/28/19 06:15 59 L 14 99 12/18/19 06:01 58 L 14 98 08/28/19 06:00 97.6 F 58 L 14 112/52 L 98 08/28/19 05:59 58 L 14 99 08/28/19 05:45 60 14 99 08/28/19 05:31 60 14 99 08/28/19 05:30 62 14 112/56 L 98 08/28/19 05:29 60 14 99 08/28/19 05:15 58 L 14 99 08/28/19 05:01 57 L 14 99 08/28/19 05:00 97.4 F 57 L 14 99/52 L 96 08/28/19 04:59 56 L 14 98 08/28/19 04:45 57 L 14 98 08/28/19 04:31 56 L 14 99 08/28/19 04:30 56 L 14 100/51 L 96 08/28/19 04:29 64 14 98 08/28/19 04:15 56 L 14 98 08/28/19 04:01 57 L 14 98 08/28/19 04:00 97.4 F 56 L 14 97/50 L 95 08/28/19 03:59 56 L 14 98 08/28/19 03:45 56 L 14 98 08/28/19 03:31 56 L 14 98 08/28/19 03:30 57 L 14 97/49 L 96 08/28/19 03:29 57 L 14 98 08/28/19 03:15 53 L 14 99 08/28/19 03:01 51 L 14 94/54 L 99 08/28/19 03:00 97.3 F 63 14 97 08/28/19 02:45 54 L 14 99 08/28/19 02:31 54 L 14 102/56 L 99 08/28/19 02:30 53 L 14 98 08/28/19 02:15 57 L 14 99 08/28/19 02:01 55 L 14 109/56 L 99 08/28/19 02:00 97.4 F 59 L 14 96 Date Exam was Performed: 08/28/19 Time Exam was Performed: 19:24 - Problem List & Annotations (1) Aspiration pneumonia SNOMED Code(s): 173071690 Code(s): J69.0 - PNEUMONITIS DUE TO INHALATION OF FOOD AND VOMIT Status: Acute Current Visit: Yes Qualifiers: Aspiration pneumonia type: due to vomit Laterality: bilateral Lung location: lower lobe of lung Qualified Code(s): J69.0 - Pneumonitis due to inhalation of food and vomit (2) Hypoxia SNOMED Code(s): 953047032 Code(s): R09.02 - HYPOXEMIA Status: Acute Current Visit: Yes (3) Ileitis SNOMED Code(s): 81429936 Code(s): K52.9 - NONINFECTIVE GASTROENTERITIS AND COLITIS, UNSPECIFIED Status: Acute Current Visit: Yes (4) Sepsis SNOMED Code(s): 03884086 Code(s): A41.9 - SEPSIS, UNSPECIFIED ORGANISM Status: Acute Current Visit : Yes Qualifiers: Sepsis type: sepsis due to unspecified organism Sepsis acute organ dysfunction status: unspecified Qualified Code(s): A41.9 - Sepsis, unspecified organism (5) UTI (urinary tract infection) SNOMED Code(s): 81182036 Code(s): N39.0 - URINARY TRACT INFECTION, SITE NOT SPECIFIED Status: Acute Current Visit: Yes Qualifiers: Urinary tract infection type: site unspecified Hematuria presence: without hematuria Qualified Code(s): N39.0 - Urinary tract infection, site not specified (6) Abdominal pain SNOMED Code(s): 47100130 Code(s): R10.9 - UNSPECIFIED ABDOMINAL PAIN Status: Acute Current Visit: No Qualifiers: Abdominal location: epigastric Qualified Code(s): R10.13 - Epigastric pain (7) High anion gap metabolic acidosis SNOMED Code(s): 02981866 Code(s): E87.2 - ACIDOSIS Status: Acute Current Visit: Yes (8) Respiratory alkalosis SNOMED Code(s): 813890291 Code(s): E87.3 - ALKALOSIS Status: Acute Current Visit: Yes (9) Acute abdomen SNOMED Code(s): 8609475 Code(s): R10.0 - ACUTE ABDOMEN Status: Acute Current Visit: Yes (10) Acute kidney failure SNOMED Code(s): 26478298 Code(s): N17.9 - ACUTE KIDNEY FAILURE, UNSPECIFIED Status: Acute Current Visit: Yes (11) Chronic kidney disease, stage 3 SNOMED Code(s): 254346055 Code(s): N18.3 - CHRONIC KIDNEY DISEASE, STAGE 3 (MODERATE) Status: Acute Current Visit: Yes (12) Hypothyroidism SNOMED Code(s): 44868361 Code(s): E03.9 - HYPOTHYROIDISM, UNSPECIFIED Status: Acute Current Visit : Yes (13) [facility] resident SNOMED Code(s): 845944288 Code(s): Z59.3 - PROBLEMS RELATED TO LIVING IN RESIDENTIAL INSTITUTION Status: Acute Current Visit: Yes (14) GERD (gastroesophageal reflux disease) SNOMED Code(s): 045529372 Code(s): K21.9 - GASTRO-ESOPHAGEAL REFLUX DISEASE WITHOUT ESOPHAGITIS Status: Acute Current Visit: No Qualifiers: Esophagitis presence: with esophagitis Qualified Code(s): K21.0 - Gastro- esophageal reflux disease with esophagitis (15) Hypertension SNOMED Code(s): 05326775 Code(s): I10 - ESSENTIAL (PRIMARY) HYPERTENSION Status: Acute Current Visit: No Qualifiers: Hypertension type: essential hypertension (16) Hypokalemia SNOMED Code(s): 86742342 Code(s): E87.6 - HYPOKALEMIA Status: Acute Priority: High Current Visit : No (17) Vascular dementia SNOMED Code(s): 008495422 Code(s): F01.50 - VASCULAR DEMENTIA WITHOUT BEHAVIORAL DISTURBANCE Status: Chronic Current Visit: No Qualifiers: Dementia behavioral disturbance: without behavioral disturbance Qualified Code(s): F01.50 - Vascular dementia without behavioral disturbance (18) Thrombocytopenia SNOMED Code(s): 567127998 Code(s): D69.6 - THROMBOCYTOPENIA, UNSPECIFIED Status: Acute Current Visit: Yes (19) Bradycardia SNOMED Code(s): 95641162 Code(s): R00.1 - BRADYCARDIA, UNSPECIFIED Status: Inactive Current Visit : No (20) Status post small bowel resection SNOMED Code(s): 078710711344248, 425525399, 440275019437147 Code(s): Z90.49 - ACQUIRED ABSENCE OF OTHER SPECIFIED PARTS OF DIGESTIVE TRACT Status: Acute Current Visit: Yes - Problem List Review Problem List Initiated/Reviewed/Updated: Yes - Plan Plan:: Septic shock 2/2 UTI/aspiration/Necrotic bowel 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 Rucker Hypothermia Decreased oral intake and complaining of abdominal pain-->Abnormal CT --> surgery consulted--> R hemicolectomy and small bowel resection Central line, arterial line and ETT placed Started on norepinephrine with inadequate BP response--> started on dopamine which improved response PaFiO2 ratio 170 but XR was not compatible with ARDS Dopamine and NE are off PLAN - Discontinue LR - Start Lr + D5 + KCl - Continue Zosyn - NG tube care - NG at intermittent suction - ETT care - VAP bundle - RT f/u - Suction by nursing - Place bear hugger - Start trickle feeds Acute kidney failure, improving High anion gap metabolic acidosis Respiratory alkalosis Chronic kidney disease, stage 3 Lactic acid continues to worsen--> multifactorial with hypoxia and sepsis Urine output has increased significantly PLAN - Monitor urine output - Renally dosed medications - Avoid nephrotoxic agents as much as possible - Change lasix to Bumex GERD (gastroesophageal reflux disease) No acute issues Needs stress ulcer prophylaxis due to ETT PLAN - Scheduled IV Pantoprazole Hypertension BP on admission stable Started dropping perioperatively requireing vasopressors PLAN - Hold home losartan Hypothyroidism No acute issues PLAN - Continue home meds once available Vascular dementia [facility] resident Requires 1 assist for bed mobility, transfer, dressing, personal hygiene and bathing 2 assist for ambulation Continent for bowel PROPHYLAXIS DVT- SCDs GI- pantoprazole CODE STATUS: FULL CODE DISPOSITION: Patient admitted to the ICU for vasopressors and mechanical ventilation. Taken to OR with subsequent bowel resection. Patient's overall prognosis is very poor with [place] score or 32, predicted mortality of 74%; family aware. Patient will need hospitalization for > 96 hours due to prolonged septic shock with hypoxemia, will do spontaneous breathing trial in the AM to assess if she is able to be extubated. Is currently of vasopressors since this morning.
--- NOTE | 2019-08-28 14:38 | CR ---
Chest: Portable view of the chest was obtained. Comparison: Previous chest x-ray of 08/25/19. Endotracheal tube is seen. Tip lies at the level of the clavicles. Endotracheal tube tube slightly withdrawn from previous exam. Atelectasis within both lung bases is seen slightly changing configuration from prior exam. Upper lungs are clear. Heart size and mediastinum are stable. Bony structures are grossly intact. Surgical clips noted within the upper right abdomen. Nasogastric tube is seen which is looped within the stomach which is stable from previous exam. Impression: 1. Changing atelectasis within both lung bases. 2. Satisfactory position of endotracheal tube. Stable position of nasogastric tube. Diagnostic code #3 This report was dictated in [place] Standard Time
[2019-08-29] MEDS: Dextrose 5%-Lact Ringers w/KCl 1,000 ML IV SCH ×2 (01:20→23:07)
[2019-08-29] MEDS: Hydrocortisone Sodium Succinate 100 MG/2 ML SDV IV SCH ×2 (03:12→12:21)
[2019-08-29] MEDS: Piperacillin/Tazobactam 4.5 GM in Sodium Chloride 0.9% 100 ML IV SCH ×4 (05:37→22:55)
[2019-08-29] MEDS: Albumin 25% 12.5 GM/50 ML BAG IV SCH (05:59)
--- NOTE | 2019-08-29 07:45 | PCM.SURGPN ---
- General Info Date of Service: 08/29/19 POD#: 5 Post-Op Diagnosis: PNA, UTI, Bowel necrosis - Patient Data Vitals - Most Recent: Last Vital Signs Temp 98.1 F 08/29/19 04:00 Pulse 63 08/29/19 04:00 Resp 14 08/29/19 04:00 BP 172/62 H 08/29/19 04:00 Pulse Ox 94 L 08/29/19 07:20 Weight - Most Recent: 86.273 kg I&O - Last 24 Hours: Intake & Output 08/28/19 08/29/19 08/29/19 22:59 06:59 14:59 Intake Total 1842 832 Output Total 615 600 Balance 1227 232 Lab Results Last 24 Hrs: Laboratory Results - last 24 hr 08/26/19 08/28/19 08/28/19 Range/Units 07:01 08:16 08:16 WBC 9.32 (3.98-10.04) K/mm3 RBC 3.17 L (3.98-5.22) M/mm3 Hgb 8.6 L (11.2-15.7) gm/dl Hct 25.3 L (34.1-44.9) % MCV 79.8 (79.4-94.8) fl MCH 27.1 (25.6-32.2) pg MCHC 34.0 (32.2-35.5) g/dl RDW Std Deviation 64.0 H (36.4-46.3) fL Plt Count 100 L (182-369) K/mm3 MPV 10.5 (9.4-12.3) fl Neut % (Auto) 89.4 H (34.0-71.1) % Lymph % (Auto) 5.9 L (19.3-51.7) % [place] % (Auto) 3.6 L (4.7-12.5) % Eos % (Auto) 0 L (0.7-5.8) Baso % (Auto) 0.1 (0.1-1.2) % Neut # (Auto) 8.33 H (1.56-6.13) K/mm3 Lymph # (Auto) 0.55 L (1.18-3.74) K/mm3 [place] # (Auto) 0.34 (0.24-0.36) K/mm3 Eos # (Auto) 0.00 L (0.04-0.36) K/mm3 Baso # (Auto) 0.01 (0.01-0.08) K/mm3 Neutrophils % (Manual) (40-60) % Band Neutrophils % (0-10) % Lymphocytes % (Manual) (20-40) % Atypical Lymphs % % Monocytes % (Manual) (2-10) % Eosinophils % (Manual) (0.7-5.8) % Basophils % (Manual) (0.1-1.2) Manual Slide Review Abnormal smear Platelet Estimate Poikilocytosis Anisocytosis RBC Morph Comment APTT (22-31) SECONDS Puncture Site ABG pH (7.35-7.45) ABG pCO2 (35.0-45.0) mmHg ABG pO2 (80.0-100.0) mmHg ABG HCO3 (22.0-26.0) meq/L ABG O2 Saturation (96.0-97.0) % ABG Base Excess (-2-2.0) A-a Gradient mmHg O2 Delivery Device FiO2 (21.00-100.00) % PEEP cmH20 Pressure Support cmH2O Sodium 142 (136-145) mEq/L Potassium 3.2 L (3.5-5.1) mEq/L Chloride 108 H (98-107) mEq/L Carbon Dioxide 22 (21-32) mEq/L Anion Gap 15.2 H (5-15) BUN 28 H (7-18) mg/dL Creatinine 1.8 H (0.55-1.02) mg/dL Est Cr Clr Drug Dosing 18.89 mL/min Estimated GFR (MDRD) 27 (>60) mL/min BUN/Creatinine Ratio 15.6 (14-18) Glucose 152 H (83-115) mg/dL Calcium 7.4 L (8.5-10.1) mg/dL Phosphorus (2.6-4.7) mg/dL Magnesium 1.9 (1.8-2.4) mg/dl Miscellaneous Test Comment 08/28/19 08/28/19 08/29/19 Range/Units 09:50 12:13 06:55 WBC (3.98-10.04) K/mm3 RBC (3.98-5.22) M/mm3 Hgb (11.2-15.7) gm/dl Hct (34.1-44.9) % MCV (79.4-94.8) fl MCH (25.6-32.2) pg MCHC (32.2-35.5) g/dl RDW Std Deviation (36.4-46.3) fL Plt Count (182-369) K/mm3 MPV (9.4-12.3) fl Neut % (Auto) (34.0-71.1) % Lymph % (Auto) (19.3-51.7) % [place] % (Auto) (4.7-12.5) % Eos % (Auto) (0.7-5.8) Baso % (Auto) (0.1-1.2) % Neut # (Auto) (1.56-6.13) K/mm3 Lymph # (Auto) (1.18-3.74) K/mm3 [place] # (Auto) (0.24-0.36) K/mm3 Eos # (Auto) (0.04-0.36) K/mm3 Baso # (Auto) (0.01-0.08) K/mm3 Neutrophils % (Manual) 79 H (40-60) % Band Neutrophils % 0 (0-10) % Lymphocytes % (Manual) 14 L (20-40) % Atypical Lymphs % 0 % Monocytes % (Manual) 6 (2-10) % Eosinophils % (Manual) 1 (0.7-5.8) % Basophils % (Manual) 0 L (0.1-1.2) Manual Slide Review Platelet Estimate Decreased Poikilocytosis 1+ slight Anisocytosis 1+ slight RBC Morph Comment [employer] APTT 59 H (22-31) SECONDS Puncture Site A-line ABG pH 7.39 (7.35-7.45) ABG pCO2 33.1 L (35.0-45.0) mmHg ABG pO2 70.0 L (80.0-100.0) mmHg ABG HCO3 19.6 L (22.0-26.0) meq/L ABG O2 Saturation 94.2 L (96.0-97.0) % ABG Base Excess -4.3 L (-2-2.0) A-a Gradient 139 mmHg O2 Delivery Device Ventilator FiO2 35.00 (21.00-100.00) % PEEP 8.0 cmH20 Pressure Support 10.0 cmH2O Sodium (136-145) mEq/L Potassium (3.5-5.1) mEq/L Chloride (98-107) mEq/L Carbon Dioxide (21-32) mEq/L Anion Gap (5-15) BUN (7-18) mg/dL Creatinine (0.55-1.02) mg/dL Est Cr Clr Drug Dosing mL/min Estimated GFR (MDRD) (>60) mL/min BUN/Creatinine Ratio (14-18) Glucose (83-115) mg/dL Calcium (8.5-10.1) mg/dL Phosphorus (2.6-4.7) mg/dL Magnesium (1.8-2.4) mg/dl Miscellaneous Test 08/29/19 Range/Units 06:55 WBC (3.98-10.04) K/mm3 RBC (3.98-5.22) M/mm3 Hgb (11.2-15.7) gm/dl Hct (34.1-44.9) % MCV (79.4-94.8) fl MCH (25.6-32.2) pg MCHC (32.2-35.5) g/dl RDW Std Deviation (36.4-46.3) fL Plt Count (182-369) K/mm3 MPV (9.4-12.3) fl Neut % (Auto) (34.0-71.1) % Lymph % (Auto) (19.3-51.7) % [place] % (Auto) (4.7-12.5) % Eos % (Auto) (0.7-5.8) Baso % (Auto) (0.1-1.2) % Neut # (Auto) (1.56-6.13) K/mm3 Lymph # (Auto) (1.18-3.74) K/mm3 [place] # (Auto) (0.24-0.36) K/mm3 Eos # (Auto) (0.04-0.36) K/mm3 Baso # (Auto) (0.01-0.08) K/mm3 Neutrophils % (Manual) (40-60) % Band Neutrophils % (0-10) % Lymphocytes % (Manual) (20-40) % Atypical Lymphs % % Monocytes % (Manual) (2-10) % Eosinophils % (Manual) (0.7-5.8) % Basophils % (Manual) (0.1-1.2) Manual Slide Review Platelet Estimate Poikilocytosis Anisocytosis RBC Morph Comment APTT (22-31) SECONDS Puncture Site ABG pH (7.35-7.45) ABG pCO2 (35.0-45.0) mmHg ABG pO2 (80.0-100.0) mmHg ABG HCO3 (22.0-26.0) meq/L ABG O2 Saturation (96.0-97.0) % ABG Base Excess (-2-2.0) A-a Gradient mmHg O2 Delivery Device FiO2 (21.00-100.00) % PEEP cmH20 Pressure Support cmH2O Sodium 143 (136-145) mEq/L Potassium 2.9 L (3.5-5.1) mEq/L Chloride 106 (98-107) mEq/L Carbon Dioxide 23 (21-32) mEq/L Anion Gap 16.9 H (5-15) BUN 29 H (7-18) mg/dL Creatinine 1.7 H (0.55-1.02) mg/dL Est Cr Clr Drug Dosing 20.01 mL/min Estimated GFR (MDRD) 29 (>60) mL/min BUN/Creatinine Ratio 17.1 (14-18) Glucose 132 H (83-115) mg/dL Calcium 8.0 L (8.5-10.1) mg/dL Phosphorus 2.9 (2.6-4.7) mg/dL Magnesium 1.9 (1.8-2.4) mg/dl Miscellaneous Test Gerardo Results Last 24 Hrs: Microbiology 08/24/19 12:16 Aerobic Blood Culture - Preliminary Blood - Venous NO GROWTH AFTER 4 DAYS Anaerobic Blood Culture - Preliminary NO GROWTH AFTER 4 DAYS 08/24/19 12:24 Aerobic Blood Culture - Preliminary Blood - Venous - Lab Draw NO GROWTH AFTER 4 DAYS Anaerobic Blood Culture - Preliminary NO GROWTH AFTER 4 DAYS Med Orders - Current: Current Medications Enoxaparin Sodium (Lovenox) 70 mg SUBCUT Q24H [facility] Last Admin: 08/28/19 11:48 Dose: 70 mg Hydrocortisone Sodium Succinate (Solu-Cortef) 50 mg IV Q8H [facility] Last Admin: 08/29/19 03:12 Dose: 50 mg Fentanyl 2,500 mcg/ Sodium (Chloride) 250 mls @ 7.27 mls/hr IV TITRATE [facility]; Protocol Last Titration: 08/28/19 04:23 Dose: 0 mcg/kg/hr, 0 mls/hr Norepinephrine Bitartrate 4 mg (/ Dextrose/Water) 250 mls @ 7.5 mls/hr IV TITRATE [facility]; Protocol Last Titration: 08/27/19 07:25 Dose: 0 mcg/min, 0 mls/hr Dopamine HCl/Dextrose (Dopamine In D5w 400 Mg/250 Ml) 400 mg in 250 mls @ 5.457 mls/hr IV TITRATE [facility]; Protocol Last Titration: 08/26/19 15:20 Dose: 0 mcg/kg/min, 0 mls/hr Piperacillin Sod/Tazobactam (Sod 4.5 gm/ Sodium Chloride) 100 mls @ 25 mls/hr IV Q12H [facility] Last Admin: 08/29/19 07:09 Dose: Not Given Potassium Cl/Dextrose/Lact Ringer's (D5 Lr With 20 Meq Kcl) 1,000 mls @ 50 mls/ hr IV ASDIRECTED [facility] Last Admin: 08/29/19 01:20 Dose: 50 mls/hr Pantoprazole Sodium (Protonix Iv) 40 mg IVPUSH DAILY [facility] Last Admin: 08/28/19 08:06 Dose: 40 mg Sodium Chloride (Saline Flush) 10 ml FLUSH ASDIRECTED PRN PRN Reason: Keep Vein Open Last Admin: 08/24/19 08:14 Dose: 10 ml Discontinued Medications Atropine Sulfate (Atropine 0.1 Mg/Ml) 0.5 mg IVPUSH ONETIME ONE Stop: 08/27/19 07:57 Last Admin: 08/27/19 08:09 Dose: 0.5 mg Bumetanide (Bumex) 1 mg IVPUSH ONETIME ONE Stop: 08/25/19 22:49 Last Admin: 08/26/19 00:07 Dose: 1 mg Bumetanide (Bumex) 1 mg IVPUSH BID [facility] Last Admin: 08/28/19 08:06 Dose: 1 mg Dextrose/Water (Dextrose 50% In Water) 25 ml IVPUSH NOW STA Stop: 08/27/19 05:41 Last Admin: 08/27/19 05:47 Dose: 25 ml Ephedrine Sulfate (Ephedrine In Ns) Confirm Administered Dose 25 mg .ROUTE .STK- MED ONE Stop: 08/24/19 21:32 Etomidate (Amidate) 40 mg IVPUSH .STK-MED ONE Stop: 08/24/19 15:01 Fentanyl (Sublimaze) Confirm Administered Dose 250 mcg .ROUTE .STK-MED ONE Stop: 08/24/19 18:10 Heparin Sodium (Porcine) (Heparin Sodium) 5,000 units IVPUSH .BOLUS ONE Stop: 08/25/19 13:27 Last Admin: 08/25/19 14:11 Dose: 5,000 units Heparin Sodium (Porcine) (Heparin Lock Flush 100 Units/Ml) Confirm Administered Dose 500 units .ROUTE .STK-MED ONE Stop: 08/25/19 22:38 Last Admin: 08/25/19 23:02 Dose: 500 units Hydromorphone HCl (Dilaudid) 0.5 mg IVPUSH ONETIME ONE Stop: 08/24/19 07:28 Last Admin: 08/24/19 08:15 Dose: 0.5 mg Sodium Chloride (Normal Saline) 1,000 mls @ 1,000 mls/hr IV .BOLUS STA Stop: 08/24/19 08:25 Last Admin: 08/24/19 08:13 Dose: 1,000 mls/hr Cefepime HCl 2 gm/ Premix 50 mls @ 100 mls/hr IV ONETIME ONE Stop: 08/24/19 13:18 Last Admin: 08/24/19 13:19 Dose: 100 mls/hr Lactated Ringer's (Ringers, Lactated) 1,100 mls @ 1,000 mls/hr IV .BOLUS ONE Stop: 08/24/19 14:13 Last Admin: 08/24/19 13:40 Dose: 1,000 mls/hr Levofloxacin/Dextrose 750 mg/ (Premix) 150 mls @ 100 mls/hr IV ONETIME ONE Stop: 08/24/19 15:07 Last Admin: 08/24/19 16:03 Dose: 100 mls/hr Piperacillin Sod/Tazobactam (Sod 4.5 gm/ Sodium Chloride) 100 mls @ 25 mls/hr IV Q8H [facility] Last Admin: 08/26/19 05:13 Dose: 25 mls/hr Vancomycin HCl 1 gm/ Sodium (Chloride) 250 mls @ 250 mls/hr IV ONETIME ONE Stop: 08/24/19 14:37 Last Admin: 08/24/19 16:06 Dose: 250 mls/hr Midazolam HCl 50 mg/ Sodium (Chloride) 50 mls @ 0.5 mls/hr IV TITRATE [facility]; Protocol Stop: 08/25/19 15:29 Last Titration: 08/25/19 11:57 Dose: 2 mg/hr, 2 mls/hr Lactated Ringer's (Ringers, Lactated) 1,000 mls @ 125 mls/hr IV ASDIRECTED [facility] Last Admin: 08/25/19 01:00 Dose: 125 mls/hr Sodium Chloride (Normal Saline) Confirm Administered Dose 1,000 mls @ as directed .ROUTE .STK-MED ONE Stop: 08/24/19 17:09 Last Admin: 08/24/19 17:16 Dose: 1 mls/hr Lactated Ringer's (Ringers, Lactated) Confirm Administered Dose 1,000 mls @ as directed .ROUTE .STK-MED ONE Stop: 08/24/19 18:34 Lactated Ringer's (Ringers, Lactated) Confirm Administered Dose 1,000 mls @ as directed .ROUTE .STK-MED ONE Stop: 08/24/19 19:10 Lactated Ringer's (Ringers, Lactated) Confirm Administered Dose 1,000 mls @ as directed .ROUTE .STK-MED ONE Stop: 08/24/19 19:46 Lactated Ringer's (Ringers, Lactated) Confirm Administered Dose 1,000 mls @ as directed .ROUTE .STK-MED ONE Stop: 08/24/19 20:40 Lactated Ringer's (Ringers, Lactated) 1,000 mls @ 250 mls/hr IV ASDIRECTED [facility] Last Infusion: 08/26/19 12:28 Dose: Infused Lactated Ringer's (Ringers, Lactated) 1,000 mls @ 999 mls/hr IV .BOLUS ONE Stop: 08/25/19 09:03 Last Admin: 08/25/19 08:10 Dose: 999 mls/hr Heparin Sodium/Dextrose (Heparin 25,000 Units In D5w 500 Ml) 25,000 units in 500 mls @ 26 mls/hr IV TITRATE [facility]; Protocol Last Admin: 08/26/19 08:24 Dose: 22 units/kg/hr, 32.013 mls/hr Lactated Ringer's (Ringers, Lactated) 2,000 mls @ 999 mls/hr IV .BOLUS ONE Stop: 08/25/19 17:52 Last Admin: 08/25/19 16:11 Dose: 999 mls/hr Lactated Ringer's (Ringers, Lactated) 1,000 mls @ 999 mls/hr IV .BOLUS ONE Stop: 08/25/19 17:13 Last Admin: 08/25/19 16:48 Dose: 999 mls/hr Midazolam HCl 50 mg/ Sodium (Chloride) 50 mls @ 0.5 mls/hr IV TITRATE [facility]; Protocol Last Titration: 08/27/19 07:55 Dose: 0 mg/hr, 0 mls/hr Albumin Human (Flexbumin 25%) 25 gm in 100 mls @ 100 mls/hr IV Q1H [facility] Stop: 08/26/19 00:46 Last Admin: 08/26/19 00:07 Dose: 100 mls/hr Albumin Human (Flexbumin 25%) 12.5 gm in 50 mls @ 100 mls/hr IV Q8H [facility] Stop: 08/29/19 07:01 Last Admin: 08/29/19 05:59 Dose: 100 mls/hr Lactated Ringer's (Ringers, Lactated) 1,000 mls @ 200 mls/hr IV ASDIRECTED [facility] Last Infusion: 08/26/19 12:30 Dose: 100 mls/hr Magnesium Sulfate 4 gm/ Premix 100 mls @ 25 mls/hr IV ONETIME ONE Stop: 08/26/19 07:31 Last Admin: 08/26/19 06:48 Dose: 25 mls/hr Lactated Ringer's (Ringers, Lactated) 1,000 mls @ 100 mls/hr IV ASDIRECTED [facility] Last Admin: 08/26/19 18:09 Dose: 100 mls/hr Dextrose/Water (Dextrose 10% In Water) 1,000 mls @ 25 mls/hr IV ASDIRECTED [facility] Dextrose/Water (Dextrose 10% In Water) 1,000 mls @ 25 mls/hr IV ASDIRECTED [facility] Last Admin: 08/27/19 05:52 Dose: 25 mls/hr Dextrose/Water (Dextrose 10% In Water) Confirm Administered Dose 1,000 mls @ as directed .ROUTE .STK-MED ONE Stop: 08/27/19 05:47 Last Admin: 08/27/19 05:56 Dose: Not Given Potassium Cl/Dextrose/Lact Ringer's (D5 Lr With 20 Meq Kcl) 1,000 mls @ 100 mls /hr IV ASDIRECTED [facility] Last Infusion: 08/28/19 11:57 Dose: 50 mls/hr Potassium Chloride 10 meq/ (Premix) 100 mls @ 100 mls/hr IV Q1H [facility] Stop: 08/27/19 12:59 Last Admin: 08/27/19 12:55 Dose: 100 mls/hr Potassium Chloride 10 meq/ (Premix) 100 mls @ 100 mls/hr IV Q1H [facility] Stop: 08/28/19 15:29 Last Admin: 08/28/19 15:11 Dose: 100 mls/hr Norepinephrine Bitartrate (Levophed) Confirm Administered Dose 4 mg .ROUTE .STK- MED ONE Stop: 08/24/19 16:39 Last Admin: 08/24/19 16:47 Dose: Not Given Ondansetron HCl (Zofran) 4 mg IVPUSH ONETIME ONE Stop: 08/24/19 07:27 Last Admin: 08/24/19 08:13 Dose: 4 mg Succinylcholine Chloride (Quelicin) 200 mg .ROUTE .STK-MED ONE Stop: 08/24/19 15:01 Vecuronium Bronson (Vecuronium) Confirm Administered Dose 10 mg .ROUTE .STK-MED ONE Stop: 08/24/19 20:13 - Exam Wound/Incisions: Drainage (Inferior portion of the incision opened last night due to increased drainage. Fascia appears intact) General: Sedated (opens eyes to voice) GI/Abdominal Exam: Soft, Tender (appropriately) Skin: Warm, Dry, Intact Neurological: No New Focal Deficit Sepsis Event Note - Evaluation Sepsis Screening Result: No Definite Risk - Focused Exam Vital Signs: Vital Signs Temp Pulse Resp BP Pulse Ox Pulse Ox 08/29/19 07:20 94 L 08/29/19 04:55 95 08/29/19 04:00 98.1 F 63 14 172/62 H 95 08/29/19 02:15 94 L 12/19/19 00:01 95 08/29/19 00:00 98.1 F 14 158/63 H 95 08/28/19 22:17 96 08/28/19 22:00 148/46 H 08/28/19 21:00 156/59 H 08/28/19 20:12 71 94 L 08/28/19 20:00 97.9 F 14 152/58 H 94 L Date Exam was Performed: 08/29/19 Time Exam was Performed: 07:37 - Problem List Review Problem List Initiated/Reviewed/Updated: No - My Orders Last 24 Hours: Active Orders 24 hr Category Date Time Status RT Ventilator, Adult [RC] ASDIRECTED Care 08/28/19 10:44 Active CBC WITH MANUAL DIFF [HEME] Routine Lab 08/29/19 06:55 Results CULTURE WOUND [RM] Routine Lab 08/28/19 11:27 Received Dextrose 5%-Lact Ringers w/KCl [D5 LR with 20 mEq KCl] Med 08/28/19 12:00 Active 1,000 ml IV ASDIRECTED Medication Orders Enoxaparin Sodium (Lovenox) 70 mg SUBCUT Q24H [facility] Last Admin: 08/28/19 11:48 Dose: 70 mg Admin: 08/27/19 11:41 Dose: 70 mg Admin: 08/26/19 11:10 Dose: 70 mg Hydrocortisone Sodium Succinate (Solu-Cortef) 50 mg IV Q8H [facility] Last Admin: 08/29/19 03:12 Dose: 50 mg Admin: 08/28/19 18:03 Dose: 50 mg Admin: 08/28/19 11:48 Dose: 50 mg Admin: 08/28/19 03:00 Dose: 50 mg Admin: 08/27/19 18:34 Dose: 50 mg Admin: 08/27/19 11:41 Dose: 50 mg Admin: 08/27/19 03:03 Dose: 50 mg Admin: 08/26/19 18:11 Dose: 50 mg Admin: 08/26/19 11:09 Dose: 50 mg Fentanyl 2,500 mcg/ Sodium (Chloride) 250 mls @ 7.27 mls/hr IV TITRATE [facility]; Protocol Last Titration: 08/28/19 04:23 Dose: 0 mcg/kg/hr, 0 mls/hr Titration: 08/27/19 20:34 Dose: 2 mcg/kg/hr, 14.55 mls/hr Titration: 08/27/19 07:55 Dose: 0 mcg/kg/hr, 0 mls/hr Admin: 08/26/19 18:11 Dose: 1.09 mcg/kg/hr, 8 mls/hr Titration: 08/26/19 15:51 Dose: 1.09 mcg/kg/hr, 8 mls/hr Titration: 08/26/19 14:43 Dose: 1.09 mcg/kg/hr, 8 mls/hr Titration: 08/26/19 11:55 Dose: 1.23 mcg/kg/hr, 9 mls/hr Admin: 08/25/19 14:20 Dose: 1.37 mcg/kg/hr, 10 mls/hr Titration: 08/25/19 14:20 Dose: 1.37 mcg/kg/hr, 10 mls/hr Titration: 08/25/19 02:29 Dose: 1.37 mcg/kg/hr, 10 mls/hr Titration: 08/24/19 23:18 Dose: 0.68 mcg/kg/hr, 5 mls/hr Titration: 08/24/19 17:45 Dose: 0 mcg/kg/hr, 0 mls/hr Titration: 08/24/19 16:13 Dose: 0.96 mcg/kg/hr, 7 mls/hr Admin: 08/24/19 16:12 Dose: 1 mcg/kg/hr, 7.27 mls/hr Norepinephrine Bitartrate 4 mg (/ Dextrose/Water) 250 mls @ 7.5 mls/hr IV TITRATE [facility]; Protocol Last Titration: 08/27/19 07:25 Dose: 0 mcg/min, 0 mls/hr Titration: 08/27/19 06:10 Dose: 0.5 mcg/min, 1.87 mls/hr Titration: 08/27/19 02:34 Dose: 1 mcg/min, 3.75 mls/hr Titration: 08/27/19 02:28 Dose: 2 mcg/min, 7.5 mls/hr Titration: 08/27/19 02:11 Dose: 0 mcg/min, 0 mls/hr Titration: 08/26/19 23:38 Dose: 0.5 mcg/min, 1.87 mls/hr Titration: 08/26/19 22:44 Dose: 1 mcg/min, 3.75 mls/hr Titration: 08/26/19 22:25 Dose: 2 mcg/min, 7.5 mls/hr Titration: 08/26/19 22:00 Dose: 0 mcg/min, 0 mls/hr Titration: 08/26/19 20:04 Dose: 1 mcg/min, 3.75 mls/hr Titration: 08/26/19 18:10 Dose: 2 mcg/min, 7.5 mls/hr Titration: 08/26/19 17:14 Dose: 3 mcg/min, 11.25 mls/hr Titration: 08/26/19 16:40 Dose: 4 mcg/min, 15 mls/hr Titration: 08/26/19 14:46 Dose: 5 mcg/min, 18.75 mls/hr Titration: 08/26/19 14:35 Dose: 6 mcg/min, 22.5 mls/hr Titration: 08/26/19 14:10 Dose: 7 mcg/min, 26.25 mls/hr Titration: 08/26/19 13:03 Dose: 8 mcg/min, 30 mls/hr Admin: 08/26/19 12:48 Dose: 9 mcg/min, 33.75 mls/hr Titration: 08/26/19 12:48 Dose: 11.5 mcg/min, 43.12 mls/hr Titration: 08/26/19 09:17 Dose: 11.5 mcg/min, 43.12 mls/hr Titration: 08/26/19 09:05 Dose: 12 mcg/min, 45 mls/hr Titration: 08/26/19 08:30 Dose: 11 mcg/min, 41.25 mls/hr Titration: 08/26/19 08:00 Dose: 10 mcg/min, 37.5 mls/hr Titration: 08/26/19 07:37 Dose: 9 mcg/min, 33.75 mls/hr Titration: 08/26/19 07:30 Dose: 10 mcg/min, 37.5 mls/hr Titration: 08/26/19 07:23 Dose: 8 mcg/min, 30 mls/hr Admin: 08/26/19 06:38 Dose: 5 mcg/min, 18.75 mls/hr Titration: 08/25/19 20:22 Dose: 10 mcg/min, 37.5 mls/hr Titration: 08/25/19 18:37 Dose: 6 mcg/min, 22.5 mls/hr Titration: 08/25/19 17:40 Dose: 5 mcg/min, 18.75 mls/hr Titration: 08/25/19 14:33 Dose: 17 mcg/min, 63.75 mls/hr Admin: 08/25/19 14:28 Dose: 15 mcg/min, 56.25 mls/hr Titration: 08/25/19 11:06 Dose: 11 mcg/min, 41.25 mls/hr Titration: 08/25/19 07:51 Dose: 7 mcg/min, 26.25 mls/hr Titration: 08/25/19 06:56 Dose: 5 mcg/min, 18.75 mls/hr Titration: 08/24/19 22:16 Dose: 4 mcg/min, 15 mls/hr Admin: 08/24/19 16:47 Dose: 2 mcg/min, 7.5 mls/hr Dopamine HCl/Dextrose (Dopamine In D5w 400 Mg/250 Ml) 400 mg in 250 mls @ 5.457 mls/hr IV TITRATE [facility]; Protocol Last Titration: 08/26/19 15:20 Dose: 0 mcg/kg/min, 0 mls/hr Titration: 08/26/19 15:03 Dose: 0.5 mcg/kg/min, 1.364 mls/hr Titration: 08/26/19 07:23 Dose: 1 mcg/kg/min, 2.728 mls/hr Titration: 08/26/19 07:00 Dose: 2.5 mcg/kg/min, 6.821 mls/hr Titration: 08/26/19 06:53 Dose: 5 mcg/kg/min, 13.642 mls/hr Titration: 08/26/19 06:53 Dose: 10 mcg/kg/min, 27.284 mls/hr Titration: 08/26/19 06:37 Dose: 5 mcg/kg/min, 13.642 mls/hr Titration: 08/26/19 06:31 Dose: 10 mcg/kg/min, 27.284 mls/hr Admin: 08/26/19 05:12 Dose: 15 mcg/kg/min, 40.925 mls/hr Titration: 08/26/19 04:50 Dose: 17.5 mcg/kg/min, 47.746 mls/hr Titration: 08/26/19 01:33 Dose: 17.5 mcg/kg/min, 47.746 mls/hr Admin: 08/25/19 23:15 Dose: 15 mcg/kg/min, 40.925 mls/hr Titration: 08/25/19 23:14 Dose: 12 mcg/kg/min, 32.74 mls/hr Titration: 08/25/19 18:37 Dose: 12 mcg/kg/min, 32.74 mls/hr Titration: 08/25/19 17:45 Dose: 10 mcg/kg/min, 27.284 mls/hr Titration: 08/25/19 17:38 Dose: 12 mcg/kg/min, 32.74 mls/hr Titration: 08/25/19 16:20 Dose: 13 mcg/kg/min, 35.469 mls/hr Titration: 08/25/19 15:38 Dose: 11 mcg/kg/min, 30.012 mls/hr Titration: 08/25/19 15:30 Dose: 6 mcg/kg/min, 16.37 mls/hr Titration: 08/25/19 15:28 Dose: 4 mcg/kg/min, 10.913 mls/hr Titration: 08/25/19 15:23 Dose: 3 mcg/kg/min, 8.185 mls/hr Admin: 08/25/19 15:16 Dose: 2 mcg/kg/min, 5.457 mls/hr Piperacillin Sod/Tazobactam (Sod 4.5 gm/ Sodium Chloride) 100 mls @ 25 mls/hr IV Q12H CHUY Last Admin: 08/29/19 07:09 Dose: Admin: 08/29/19 05:37 Dose: 25 mls/hr Infusion: 08/28/19 22:03 Dose: 25 mls/hr Admin: 08/28/19 18:03 Dose: 25 mls/hr Infusion: 08/28/19 09:16 Dose: 25 mls/hr Admin: 08/28/19 05:16 Dose: 25 mls/hr Infusion: 08/27/19 22:35 Dose: 25 mls/hr Admin: 08/27/19 18:35 Dose: 25 mls/hr Infusion: 08/27/19 09:09 Dose: 25 mls/hr Admin: 08/27/19 05:09 Dose: 25 mls/hr Infusion: 08/26/19 22:10 Dose: 25 mls/hr Admin: 08/26/19 18:10 Dose: 25 mls/hr Potassium Cl/Dextrose/Lact Ringer's (D5 Lr With 20 Meq Kcl) 1,000 mls @ 50 mls/ hr IV ASDIRECTED [facility] Last Admin: 08/29/19 01:20 Dose: 50 mls/hr Pantoprazole Sodium (Protonix Iv) 40 mg IVPUSH DAILY [facility] Last Admin: 08/28/19 08:06 Dose: 40 mg Admin: 08/27/19 08:34 Dose: 40 mg Admin: 08/26/19 08:40 Dose: 40 mg Admin: 08/25/19 08:19 Dose: 40 mg Sodium Chloride (Saline Flush) 10 ml FLUSH ASDIRECTED PRN PRN Reason: Keep Vein Open Last Admin: 08/24/19 08:14 Dose: 10 ml - Assessment Assessment (Free Text/Narrative):: Patient is POD5 s/p ex lap SBR, right hemicolectomy for bowel necrosis. Also has PNA and UTI. Recovering slowly. - Plan Plan (Free Text/Narrative):: - Inferior wound opened last night due to increased serous drainage. No signs of infection. Continue packing with dry gauze because the wound is wet. Change dressing every 12 hours. - Tolerating trophic feeds at 20cc/hr. Continue this. Ok to hold TF temporarily if residuals > 200cc. - replete K Please call with any questions.
[2019-08-29] MEDS ORDERED: Morphine 2 MG/ML Syringe IVPUSH ONE (07:46)
[2019-08-29] MEDS ORDERED: hydrALAZINE 20 MG/ML SDV IVPUSH ONE (07:46)
[2019-08-29] MEDS: Pantoprazole 40 MG Vial IVPUSH SCH (08:08)
[2019-08-29] MEDS ORDERED: Sodium Chloride 0.9% 1,000 ML IRR ONE (12:07)
--- NOTE | 2019-08-29 12:15 | PCM.PN ---
- General Info Date of Service: 08/29/19 Subjective Update: INTERVAL HISTORY: Overnight events: Slept through the night Labs: PLT down to 90 K-2.6 VS Trend: MAP: 89-104 HR:64-83x' Temp. trend: 97.3-98.6 SatO2: 92-99% UO: 1,890 Balance: +1,130 +10,691 since admission BM: not yet MV: Intubation day:08/24 Cultures: Pansensitive E. coli in urine Nutrition: Vital AF tube feeds with residuals at 20ml/hr - Patient Data Vitals - Most Recent: Last Vital Signs Temp 98.4 F 08/29/19 08:00 Pulse 63 08/29/19 04:00 Resp 15 08/29/19 08:00 BP 143/68 H 08/29/19 08:00 Pulse Ox 91 L 08/29/19 11:01 Weight - Most Recent: 86.273 kg - Exam Quality Assessment: Supplemental Oxygen, Central Line/PICC, Urine Catheter, DVT Prophylaxis, Skin Breakdown General: Sedated HEENT: Pupils Equal, Pupils Reactive, Mucous Membr. Moist/[place] Neck: Trachea Midline, +2 Carotid Pulse wo Bruit. No: Lymphadenopathy Lungs: Decreased Breath Sounds, Crackles. No: Rales, Rhonchi, Rub, Wheezing Cardiovascular: Regular Rate, Regular Rhythm. No: Tachycardia, Murmurs, Gallops , Rubs GI/Abdominal Exam: Other (Hypoactive bowel sounds; wound dehiscence) Extremities: Pedal Edema, Slow Capillary Refill Skin: Warm Wound/Incisions: Other (Ex-lap wound dehiscence below umbilicus) Sepsis Event Note - Evaluation Sepsis Screening Result: No Definite Risk - Focused Exam Vital Signs: Vital Signs Temp Pulse Resp BP BP Pulse Ox Pulse Ox 08/29/19 11:01 91 L 08/29/19 10:39 94 L 08/29/19 08:00 98.4 F 15 143/68 H 176/68 H 95 08/29/19 07:20 94 L 08/29/19 04:55 95 08/29/19 04:00 98.1 F 63 14 172/62 H 95 08/29/19 02:15 94 L Date Exam was Performed: 08/29/19 Time Exam was Performed: 18:24 - Problem List & Annotations (1) Aspiration pneumonia SNOMED Code(s): 135367972 Code(s): J69.0 - PNEUMONITIS DUE TO INHALATION OF FOOD AND VOMIT Status: Acute Current Visit: Yes Qualifiers: Aspiration pneumonia type: due to vomit Laterality: bilateral Lung location: lower lobe of lung Qualified Code(s): J69.0 - Pneumonitis due to inhalation of food and vomit (2) Hypoxia SNOMED Code(s): 630868851 Code(s): R09.02 - HYPOXEMIA Status: Acute Current Visit: Yes (3) Ileitis SNOMED Code(s): 57434774 Code(s): K52.9 - NONINFECTIVE GASTROENTERITIS AND COLITIS, UNSPECIFIED Status: Acute Current Visit: Yes (4) Sepsis SNOMED Code(s): 55550686 Code(s): A41.9 - SEPSIS, UNSPECIFIED ORGANISM Status: Acute Current Visit : Yes Qualifiers: Sepsis type: sepsis due to unspecified organism Sepsis acute organ dysfunction status: unspecified Qualified Code(s): A41.9 - Sepsis, unspecified organism (5) UTI (urinary tract infection) SNOMED Code(s): 87151687 Code(s): N39.0 - URINARY TRACT INFECTION, SITE NOT SPECIFIED Status: Acute Current Visit: Yes Qualifiers: Urinary tract infection type: site unspecified Hematuria presence: without hematuria Qualified Code(s): N39.0 - Urinary tract infection, site not specified (6) Abdominal pain SNOMED Code(s): 32611051 Code(s): R10.9 - UNSPECIFIED ABDOMINAL PAIN Status: Acute Current Visit: No Qualifiers: Abdominal location: epigastric Qualified Code(s): R10.13 - Epigastric pain (7) High anion gap metabolic acidosis SNOMED Code(s): 57459760 Code(s): E87.2 - ACIDOSIS Status: Acute Current Visit: Yes (8) Respiratory alkalosis SNOMED Code(s): 123649179 Code(s): E87.3 - ALKALOSIS Status: Acute Current Visit: Yes (9) Acute abdomen SNOMED Code(s): 6633383 Code(s): R10.0 - ACUTE ABDOMEN Status: Acute Current Visit: Yes (10) Acute kidney failure SNOMED Code(s): 06729141 Code(s): N17.9 - ACUTE KIDNEY FAILURE, UNSPECIFIED Status: Acute Current Visit: Yes (11) Chronic kidney disease, stage 3 SNOMED Code(s): 737935410 Code(s): N18.3 - CHRONIC KIDNEY DISEASE, STAGE 3 (MODERATE) Status: Acute Current Visit: Yes (12) Hypothyroidism SNOMED Code(s): 84667982 Code(s): E03.9 - HYPOTHYROIDISM, UNSPECIFIED Status: Acute Current Visit : Yes (13) [facility] resident SNOMED Code(s): 458899306 Code(s): Z59.3 - PROBLEMS RELATED TO LIVING IN RESIDENTIAL INSTITUTION Status: Acute Current Visit: Yes (14) GERD (gastroesophageal reflux disease) SNOMED Code(s): 846215354 Code(s): K21.9 - GASTRO-ESOPHAGEAL REFLUX DISEASE WITHOUT ESOPHAGITIS Status: Acute Current Visit: No Qualifiers: Esophagitis presence: with esophagitis Qualified Code(s): K21.0 - Gastro- esophageal reflux disease with esophagitis (15) Hypertension SNOMED Code(s): 35030727 Code(s): I10 - ESSENTIAL (PRIMARY) HYPERTENSION Status: Acute Current Visit: No Qualifiers: Hypertension type: essential hypertension (16) Hypokalemia SNOMED Code(s): 04843294 Code(s): E87.6 - HYPOKALEMIA Status: Acute Priority: High Current Visit : No (17) Vascular dementia SNOMED Code(s): 124917010 Code(s): F01.50 - VASCULAR DEMENTIA WITHOUT BEHAVIORAL DISTURBANCE Status: Chronic Current Visit: No Qualifiers: Dementia behavioral disturbance: without behavioral disturbance Qualified Code(s): F01.50 - Vascular dementia without behavioral disturbance (18) Thrombocytopenia SNOMED Code(s): 266173309 Code(s): D69.6 - THROMBOCYTOPENIA, UNSPECIFIED Status: Acute Current Visit: Yes (19) Bradycardia SNOMED Code(s): 74059791 Code(s): R00.1 - BRADYCARDIA, UNSPECIFIED Status: Inactive Current Visit : No (20) Status post small bowel resection SNOMED Code(s): 701918203459444, 056680065, 212584217434225 Code(s): Z90.49 - ACQUIRED ABSENCE OF OTHER SPECIFIED PARTS OF DIGESTIVE TRACT Status: Acute Current Visit: Yes (21) Heparin induced thrombocytopenia SNOMED Code(s): 00727535 Code(s): D75.82 - HEPARIN INDUCED THROMBOCYTOPENIA (HIT) Status: Acute Current Visit: Yes (22) Wound dehiscence SNOMED Code(s): 733045255 Code(s): T81.30XA - DISRUPTION OF WOUND, UNSPECIFIED, INITIAL ENCOUNTER Status: Acute Current Visit: Yes - Problem List Review Problem List Initiated/Reviewed/Updated: Yes - Plan Plan:: Sepsis 2/2 UTI/aspiration/Necrotic bowel 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 Rucker Wound dehiscence Decreased oral intake and complaining of abdominal pain-->Abnormal CT --> surgery consulted--> R hemicolectomy and small bowel resection Central line, arterial line and ETT placed Started on norepinephrine with inadequate BP response--> started on dopamine which improved response PaFiO2 ratio 170 but XR was not compatible with ARDS Dopamine and NE are off PLAN - Discontinue LR - Start Lr + D5 + KCl - Continue Zosyn - NG tube care - NG at intermittent suction - ETT care - VAP bundle - RT f/u - Suction by nursing - Continue trickle feeds - Pack abdominal wound BID and as needed - Pain control with PRN morphine Heparin induced thrombocytopenia Admission platelets 341, today 90 T score 6, highly likely PLAN - Discontinue Lovenox - Start Argatroban - PF4 immunoassay ordered Acute kidney failure, improving Chronic kidney disease, stage 3 Lactic acid continued to worsen--> multifactorial with hypoxia and sepsis Urine output has increased significantly PLAN - Monitor urine output - Renally dosed medications - Avoid nephrotoxic agents as much as possible - Change lasix to Bumex GERD (gastroesophageal reflux disease) No acute issues Needs stress ulcer prophylaxis due to ETT PLAN - Scheduled IV Pantoprazole Hypertension BP on admission stable Started dropping perioperatively requiring vasopressors Pressors off since 08/27 Worsening hypertension PLAN - Continue to hold ARB - Start Amlodipine - PRN Hydralazine Hypothyroidism No acute issues PLAN - Continue home meds once available Vascular dementia jail resident Requires 1 assist for bed mobility, transfer, dressing, personal hygiene and bathing 2 assist for ambulation Continent for bowel Hypothermia, resolved Septic shock, resolved Lactic acidosis, resolved Metabolic acidosis, resolved Respiratory alkalosis, resolved PROPHYLAXIS DVT- SCDs GI- pantoprazole CODE STATUS: FULL CODE DISPOSITION: Patient admitted to the ICU for vasopressors and mechanical ventilation. Taken to OR 12/.14 with subsequent bowel resection. Patient's overall prognosis is very poor with [place] DEE-NI' score or 32, predicted mortality of 74%; family aware. Patient will need hospitalization for > 96 hours due to prolonged septic shock with hypoxemia, will do spontaneous breathing trial in the AM to assess if she is able to be extubated. Is currently of vasopressors since this morning.
[2019-08-29] MEDS: Magnesium Sulfate/Water 2 GM in Premix Bag 1 BAG IV SCH ×2 (12:19→20:25)
[2019-08-29] MEDS: Potassium Chloride 10 MEQ in Premix Bag 1 BAG IV SCH ×7 (12:21→17:47)
[2019-08-29] MEDS: Morphine 2 MG/ML Syringe IVPUSH PRN ×3 (12:50→20:28)
[2019-08-29] MEDS: amLODIPine 10 MG Tab PO SCH (12:51)
--- NOTE | 2019-08-29 13:01 | CR ---
Chest: Portable view of the chest was obtained. Comparison: Prior chest x-ray of 08/28/19. Increased density within both lung bases is noted. Difficult to exclude left sided pleural effusion. Tip of endotracheal tube is difficult to see on this exam and may be slightly withdrawn from previous study, better AP view recommended to further evaluate. Right sided jugular line is noted which is stable in position. Nasogastric tube is coiled within the stomach and stable in position. Heart size is unchanged. Impression: 1. Tip of endotracheal tube not well seen due to slight rotation. Recommend better AP view to further evaluate as endotracheal tube appears to be slightly withdrawn from prior exam. 2. Increased density within both lung bases. Difficult to exclude left-sided pleural effusion. Findings are felt to be fairly stable from prior exam. 3. Other tubes and catheters are stable. Diagnostic code #3 This report was dictated in [place] Standard Time
[2019-08-29] MEDS: NORMAL SALINE IV SCH (14:21)
[2019-08-29] MEDS: ARGATROBAN IV SCH (14:21)
[2019-08-29] MEDS ORDERED: Non-Formulary Medication 1 Each (Losartan 50 MG) PO SCH (21:00)
[2019-08-30] MEDS: Piperacillin/Tazobactam 4.5 GM in Sodium Chloride 0.9% 100 ML IV SCH ×3 (05:17→21:52)
[2019-08-30] MEDS: Morphine 2 MG/ML Syringe IVPUSH PRN (05:17)
--- NOTE | 2019-08-30 07:49 | CR ---
Chest: Frontal view of the chest was obtained. Comparison: Prior chest x-ray of 08/29/19. Bilateral pleural effusions are noted. Heart is enlarged. Atelectasis seen within both lung bases. Endotracheal tube is seen. Tip is difficult to see but is felt to lie near the clavicles. Nasogastric tube and right jugular line are stable. Impression: 1. Bilateral pleural effusions with bibasilar atelectasis. Mild cardiomegaly. 2. Stable tubes and catheters as noted above. Diagnostic code #3 This report was dictated in [place] Standard Time I agree with preliminary report from ad, finalized on 08/30/19, 6:30 AM Central Time
[2019-08-30] MEDS ORDERED: Iopamidol 755 Mg/ML 100 ML Bottle IVPUSH ONE (08:24)
[2019-08-30] MEDS ORDERED: Sodium Chloride 0.9% 100 ML IV SCH (08:30)
--- NOTE | 2019-08-30 08:59 | CT ---
Head CT Technique: Multiple axial sections through the brain were obtained. Intravenous contrast was not utilized. Comparison: Prior head CT study of 05/06/19. Findings: Ventricles along with basal cisterns and sulci over the convexities are moderately prominent. Diminished density is noted within the periventricular and subcortical white matter which is compatible with small vessel ischemic demyelination change. No other abnormal parenchymal densities are seen. No evidence of intracranial hemorrhage. No midline shift or mass effect is seen. Bone window settings were reviewed which show mucosal thickening within the right mastoid sinus and lesser mucosal thickening within the left mastoid sinus. Visualized paranasal sinuses are clear. No acute calvarial abnormality is appreciated. Impression: 1. Mucosal thickening within both mastoid sinuses, more prominent on the right side. 2. Senescent change as noted above. 3. No acute intracranial abnormality is identified. Diagnostic code #2 This report was dictated in [place] Standard Time
[2019-08-30] MEDS ORDERED: Sodium Chloride 0.9% 10 ML Syringe FLUSH ONE (09:00)
[2019-08-30] MEDS ORDERED: Levothyroxine 50 MCG Tab PO SCH (09:00)
[2019-08-30] MEDS: Pantoprazole 40 MG Vial IVPUSH SCH (09:06)
[2019-08-30] MEDS: amLODIPine 10 MG Tab PO SCH (09:10)
[2019-08-30] MEDS: ARGATROBAN IV SCH ×2 (10:44→15:25)
[2019-08-30] MEDS: NORMAL SALINE IV SCH ×2 (10:44→15:25)
[2019-08-30] MEDS: Chlorthalidone 25 MG Tab PO SCH (10:58)
[2019-08-30] MEDS ORDERED: hydrALAZINE 20 MG/ML SDV IVPUSH ONE (11:54)
--- NOTE | 2019-08-30 15:28 | PCM.SURGPN ---
- General Info Date of Service: 08/30/19 POD#: 6 Post-Op Diagnosis: PNA, UTI, Bowel necrosis Functional Status: Reports: Pain Controlled - Review of Systems Gastrointestinal: Reports: Abdominal Pain (appropriate) - Patient Data Vitals - Most Recent: Last Vital Signs Temp 98 F 08/30/19 12:00 Pulse 75 08/29/19 12:30 Resp 16 08/30/19 12:00 BP 167/62 H 08/30/19 12:00 Pulse Ox 92 L 08/30/19 12:00 Weight - Most Recent: 88.088 kg I&O - Last 24 Hours: Intake & Output 08/30/19 08/30/19 08/30/19 06:59 14:59 22:59 Intake Total 1289 100 Output Total 350 879 Balance 939 -779 Lab Results Last 24 Hrs: Laboratory Results - last 24 hr 08/29/19 08/29/19 08/30/19 Range/Units 18:00 18:40 05:00 Hgb 9.4 L (11.2-15.7) gm/dl APTT 107 H* D (22-31) SECONDS Puncture Site Art line ABG pH 7.44 (7.35-7.45) ABG pCO2 30.3 L (35.0-45.0) mmHg ABG pO2 56.0 L (80.0-100.0) mmHg ABG HCO3 20.2 L (22.0-26.0) meq/L ABG O2 Saturation 89.7 L (96.0-97.0) % ABG Base Excess -2.8 L (-2-2.0) Kerwin Test Positive O2 Delivery Device Ventilator FiO2 0.00 L (21.00-100.00) % Tidal Volume 500.0 cc PEEP 10.0 cmH20 Pressure Support cmH2O Sodium (136-145) mEq/L Potassium (3.5-5.1) mEq/L Chloride (98-107) mEq/L Carbon Dioxide (21-32) mEq/L Anion Gap (5-15) BUN (7-18) mg/dL Creatinine (0.55-1.02) mg/dL Est Cr Clr Drug Dosing mL/min Estimated GFR (MDRD) (>60) mL/min BUN/Creatinine Ratio (14-18) Glucose (83-115) mg/dL Calcium (8.5-10.1) mg/dL Phosphorus (2.6-4.7) mg/dL Magnesium (1.8-2.4) mg/dl 08/30/19 08/30/19 08/30/19 Range/Units 05:00 07:24 07:30 Hgb (11.2-15.7) gm/dl APTT 121 H* D (22-31) SECONDS Puncture Site Art line ABG pH 7.50 H (7.35-7.45) ABG pCO2 25.9 L (35.0-45.0) mmHg ABG pO2 63.0 L (80.0-100.0) mmHg ABG HCO3 20 L (22.0-26.0) meq/L ABG O2 Saturation 94.2 L (96.0-97.0) % ABG Base Excess -2.0 (-2-2.0) Kerwin Test Positive O2 Delivery Device Ventilator FiO2 0.00 L (21.00-100.00) % Tidal Volume cc PEEP 8.0 cmH20 Pressure Support 10.0 cmH2O Sodium 143 (136-145) mEq/L Potassium 3.5 (3.5-5.1) mEq/L Chloride 111 H (98-107) mEq/L Carbon Dioxide 23 (21-32) mEq/L Anion Gap 12.5 (5-15) BUN 29 H (7-18) mg/dL Creatinine 1.5 H (0.55-1.02) mg/dL Est Cr Clr Drug Dosing 22.67 mL/min Estimated GFR (MDRD) 33 (>60) mL/min BUN/Creatinine Ratio 19.3 H (14-18) Glucose 136 H (83-115) mg/dL Calcium 7.4 L (8.5-10.1) mg/dL Phosphorus 2.3 L (2.6-4.7) mg/dL Magnesium 2.5 H (1.8-2.4) mg/dl 08/30/19 08/30/19 Range/Units 11:08 13:04 Hgb (11.2-15.7) gm/dl APTT 101 H D (22-31) SECONDS Puncture Site Art line ABG pH 7.45 (7.35-7.45) ABG pCO2 31.1 L (35.0-45.0) mmHg ABG pO2 62.0 L (80.0-100.0) mmHg ABG HCO3 21.4 L (22.0-26.0) meq/L ABG O2 Saturation 92.8 L (96.0-97.0) % ABG Base Excess -1.5 (-2-2.0) Kerwin Test Positive O2 Delivery Device Ventilator FiO2 0.00 L (21.00-100.00) % Tidal Volume cc PEEP 8.0 cmH20 Pressure Support 10.0 cmH2O Sodium (136-145) mEq/L Potassium (3.5-5.1) mEq/L Chloride (98-107) mEq/L Carbon Dioxide (21-32) mEq/L Anion Gap (5-15) BUN (7-18) mg/dL Creatinine (0.55-1.02) mg/dL Est Cr Clr Drug Dosing mL/min Estimated GFR (MDRD) (>60) mL/min BUN/Creatinine Ratio (14-18) Glucose (83-115) mg/dL Calcium (8.5-10.1) mg/dL Phosphorus (2.6-4.7) mg/dL Magnesium (1.8-2.4) mg/dl Gerardo Results Last 24 Hrs: Microbiology 08/29/19 12:25 Catheter Tip Culture - Preliminary Triple Lumen NO GROWTH AFTER 1 DAY 08/24/19 12:16 Aerobic Blood Culture - Preliminary Blood - Venous NO GROWTH AFTER 6 DAYS Anaerobic Blood Culture - Preliminary NO GROWTH AFTER 6 DAYS 08/24/19 12:24 Aerobic Blood Culture - Preliminary Blood - Venous - Lab Draw NO GROWTH AFTER 6 DAYS Anaerobic Blood Culture - Preliminary NO GROWTH AFTER 6 DAYS Med Orders - Current: Current Medications Amlodipine Besylate (Norvasc) 10 mg PO DAILY [facility] Last Admin: 08/30/19 09:10 Dose: 10 mg Chlorthalidone (Chlorthalidone) 25 mg PO DAILY [facility] Last Admin: 08/30/19 10:58 Dose: 25 mg Potassium Cl/Dextrose/Lact Ringer's (D5 Lr With 20 Meq Kcl) 1,000 mls @ 50 mls/ hr IV ASDIRECTED [facility] Last Admin: 08/29/19 23:07 Dose: 50 mls/hr Piperacillin Sod/Tazobactam (Sod 4.5 gm/ Sodium Chloride) 100 mls @ 25 mls/hr IV Q8H [facility] Last Admin: 08/30/19 13:18 Dose: 25 mls/hr Argatroban 250 mg/ Sodium (Chloride) 252.5 mls @ 9.69 mls/hr IV TITRATE [facility]; Protocol Last Admin: 08/30/19 10:44 Dose: 1 mcg/kg/min, 4.84 mls/hr Morphine Sulfate (Morphine) 1 mg IVPUSH Q4H PRN PRN Reason: Pain Last Admin: 08/30/19 05:17 Dose: 1 mg Pantoprazole Sodium (Protonix Iv) 40 mg IVPUSH DAILY [facility] Last Admin: 08/30/19 09:06 Dose: 40 mg Sodium Chloride (Saline Flush) 10 ml FLUSH ASDIRECTED PRN PRN Reason: Keep Vein Open Last Admin: 08/24/19 08:14 Dose: 10 ml Discontinued Medications Atropine Sulfate (Atropine 0.1 Mg/Ml) 0.5 mg IVPUSH ONETIME ONE Stop: 08/27/19 07:57 Last Admin: 08/27/19 08:09 Dose: 0.5 mg Bumetanide (Bumex) 1 mg IVPUSH ONETIME ONE Stop: 08/25/19 22:49 Last Admin: 08/26/19 00:07 Dose: 1 mg Bumetanide (Bumex) 1 mg IVPUSH BID [facility] Last Admin: 08/28/19 08:06 Dose: 1 mg Dextrose/Water (Dextrose 50% In Water) 25 ml IVPUSH NOW STA Stop: 08/27/19 05:41 Last Admin: 08/27/19 05:47 Dose: 25 ml Enoxaparin Sodium (Lovenox) 70 mg SUBCUT Q24H [facility] Last Admin: 08/28/19 11:48 Dose: 70 mg Ephedrine Sulfate (Ephedrine In Ns) Confirm Administered Dose 25 mg .ROUTE .STK- MED ONE Stop: 08/24/19 21:32 Etomidate (Amidate) 40 mg IVPUSH .STK-MED ONE Stop: 08/24/19 15:01 Fentanyl (Sublimaze) Confirm Administered Dose 250 mcg .ROUTE .STK-MED ONE Stop: 08/24/19 18:10 Heparin Sodium (Porcine) (Heparin Sodium) 5,000 units IVPUSH .BOLUS ONE Stop: 08/25/19 13:27 Last Admin: 08/25/19 14:11 Dose: 5,000 units Heparin Sodium (Porcine) (Heparin Lock Flush 100 Units/Ml) Confirm Administered Dose 500 units .ROUTE .STK-MED ONE Stop: 08/25/19 22:38 Last Admin: 08/25/19 23:02 Dose: 500 units Hydralazine HCl (Apresoline) 10 mg IVPUSH ONETIME ONE Stop: 08/29/19 07:47 Last Admin: 08/29/19 08:08 Dose: 10 mg Hydralazine HCl (Apresoline) 10 mg IVPUSH ONETIME ONE Stop: 08/30/19 11:55 Last Admin: 08/30/19 12:03 Dose: 10 mg Hydrocortisone Sodium Succinate (Solu-Cortef) 50 mg IV Q8H [facility] Last Admin: 08/29/19 12:21 Dose: 50 mg Hydromorphone HCl (Dilaudid) 0.5 mg IVPUSH ONETIME ONE Stop: 08/24/19 07:28 Last Admin: 08/24/19 08:15 Dose: 0.5 mg Sodium Chloride (Normal Saline) 1,000 mls @ 1,000 mls/hr IV .BOLUS STA Stop: 08/24/19 08:25 Last Admin: 08/24/19 08:13 Dose: 1,000 mls/hr Cefepime HCl 2 gm/ Premix 50 mls @ 100 mls/hr IV ONETIME ONE Stop: 08/24/19 13:18 Last Admin: 08/24/19 13:19 Dose: 100 mls/hr Lactated Ringer's (Ringers, Lactated) 1,100 mls @ 1,000 mls/hr IV .BOLUS ONE Stop: 08/24/19 14:13 Last Admin: 08/24/19 13:40 Dose: 1,000 mls/hr Levofloxacin/Dextrose 750 mg/ (Premix) 150 mls @ 100 mls/hr IV ONETIME ONE Stop: 08/24/19 15:07 Last Admin: 08/24/19 16:03 Dose: 100 mls/hr Piperacillin Sod/Tazobactam (Sod 4.5 gm/ Sodium Chloride) 100 mls @ 25 mls/hr IV Q8H [facility] Last Admin: 08/26/19 05:13 Dose: 25 mls/hr Vancomycin HCl 1 gm/ Sodium (Chloride) 250 mls @ 250 mls/hr IV ONETIME ONE Stop: 08/24/19 14:37 Last Admin: 08/24/19 16:06 Dose: 250 mls/hr Fentanyl 2,500 mcg/ Sodium (Chloride) 250 mls @ 7.27 mls/hr IV TITRATE [facility]; Protocol Last Titration: 08/28/19 04:23 Dose: 0 mcg/kg/hr, 0 mls/hr Midazolam HCl 50 mg/ Sodium (Chloride) 50 mls @ 0.5 mls/hr IV TITRATE [facility]; Protocol Stop: 08/25/19 15:29 Last Titration: 08/25/19 11:57 Dose: 2 mg/hr, 2 mls/hr Lactated Ringer's (Ringers, Lactated) 1,000 mls @ 125 mls/hr IV ASDIRECTED [facility] Last Admin: 08/25/19 01:00 Dose: 125 mls/hr Norepinephrine Bitartrate 4 mg (/ Dextrose/Water) 250 mls @ 7.5 mls/hr IV TITRATE [facility]; Protocol Last Titration: 08/27/19 07:25 Dose: 0 mcg/min, 0 mls/hr Sodium Chloride (Normal Saline) Confirm Administered Dose 1,000 mls @ as directed .ROUTE .STK-MED ONE Stop: 08/24/19 17:09 Last Admin: 08/24/19 17:16 Dose: 1 mls/hr Lactated Ringer's (Ringers, Lactated) Confirm Administered Dose 1,000 mls @ as directed .ROUTE .STK-MED ONE Stop: 08/24/19 18:34 Lactated Ringer's (Ringers, Lactated) Confirm Administered Dose 1,000 mls @ as directed .ROUTE .STK-MED ONE Stop: 08/24/19 19:10 Lactated Ringer's (Ringers, Lactated) Confirm Administered Dose 1,000 mls @ as directed .ROUTE .STK-MED ONE Stop: 08/24/19 19:46 Lactated Ringer's (Ringers, Lactated) Confirm Administered Dose 1,000 mls @ as directed .ROUTE .STK-MED ONE Stop: 08/24/19 20:40 Lactated Ringer's (Ringers, Lactated) 1,000 mls @ 250 mls/hr IV ASDIRECTED [facility] Last Infusion: 08/26/19 12:28 Dose: Infused Lactated Ringer's (Ringers, Lactated) 1,000 mls @ 999 mls/hr IV .BOLUS ONE Stop: 08/25/19 09:03 Last Admin: 08/25/19 08:10 Dose: 999 mls/hr Heparin Sodium/Dextrose (Heparin 25,000 Units In D5w 500 Ml) 25,000 units in 500 mls @ 26 mls/hr IV TITRATE [facility]; Protocol Last Admin: 08/26/19 08:24 Dose: 22 units/kg/hr, 32.013 mls/hr Dopamine HCl/Dextrose (Dopamine In D5w 400 Mg/250 Ml) 400 mg in 250 mls @ 5.457 mls/hr IV TITRATE [facility]; Protocol Last Titration: 08/26/19 15:20 Dose: 0 mcg/kg/min, 0 mls/hr Lactated Ringer's (Ringers, Lactated) 2,000 mls @ 999 mls/hr IV .BOLUS ONE Stop: 08/25/19 17:52 Last Admin: 08/25/19 16:11 Dose: 999 mls/hr Lactated Ringer's (Ringers, Lactated) 1,000 mls @ 999 mls/hr IV .BOLUS ONE Stop: 08/25/19 17:13 Last Admin: 08/25/19 16:48 Dose: 999 mls/hr Midazolam HCl 50 mg/ Sodium (Chloride) 50 mls @ 0.5 mls/hr IV TITRATE [facility]; Protocol Last Titration: 08/27/19 07:55 Dose: 0 mg/hr, 0 mls/hr Albumin Human (Flexbumin 25%) 25 gm in 100 mls @ 100 mls/hr IV Q1H [facility] Stop: 08/26/19 00:46 Last Admin: 08/26/19 00:07 Dose: 100 mls/hr Albumin Human (Flexbumin 25%) 12.5 gm in 50 mls @ 100 mls/hr IV Q8H [facility] Stop: 08/29/19 07:01 Last Admin: 08/29/19 05:59 Dose: 100 mls/hr Lactated Ringer's (Ringers, Lactated) 1,000 mls @ 200 mls/hr IV ASDIRECTED [facility] Last Infusion: 08/26/19 12:30 Dose: 100 mls/hr Magnesium Sulfate 4 gm/ Premix 100 mls @ 25 mls/hr IV ONETIME ONE Stop: 08/26/19 07:31 Last Admin: 08/26/19 06:48 Dose: 25 mls/hr Piperacillin Sod/Tazobactam (Sod 4.5 gm/ Sodium Chloride) 100 mls @ 25 mls/hr IV Q12H [facility] Stop: 08/29/19 10:00 Last Admin: 08/29/19 07:09 Dose: Not Given Lactated Ringer's (Ringers, Lactated) 1,000 mls @ 100 mls/hr IV ASDIRECTED [facility] Last Admin: 08/26/19 18:09 Dose: 100 mls/hr Dextrose/Water (Dextrose 10% In Water) 1,000 mls @ 25 mls/hr IV ASDIRECTED [facility] Dextrose/Water (Dextrose 10% In Water) 1,000 mls @ 25 mls/hr IV ASDIRECTED [facility] Last Admin: 08/27/19 05:52 Dose: 25 mls/hr Dextrose/Water (Dextrose 10% In Water) Confirm Administered Dose 1,000 mls @ as directed .ROUTE .[facility]-MED ONE Stop: 08/27/19 05:47 Last Admin: 08/27/19 05:56 Dose: Not Given Potassium Cl/Dextrose/Lact Ringer's (D5 Lr With 20 Meq Kcl) 1,000 mls @ 100 mls /hr IV ASDIRECTED [facility] Last Infusion: 08/28/19 11:57 Dose: 50 mls/hr Potassium Chloride 10 meq/ (Premix) 100 mls @ 100 mls/hr IV Q1H [facility] Stop: 08/27/19 12:59 Last Admin: 08/27/19 12:55 Dose: 100 mls/hr Potassium Chloride 10 meq/ (Premix) 100 mls @ 100 mls/hr IV Q1H [facility] Stop: 08/28/19 15:29 Last Admin: 08/28/19 15:11 Dose: 100 mls/hr Potassium Chloride 10 meq/ (Premix) 100 mls @ 100 mls/hr IV Q1H [facility] Stop: 08/29/19 17:59 Last Admin: 08/29/19 17:47 Dose: 100 mls/hr Magnesium Sulfate 2 gm/ Premix 50 mls @ 25 mls/hr IV 1200,2100 [facility] Stop: 08/29/19 22:59 Last Admin: 08/29/19 20:25 Dose: 25 mls/hr Sodium Chloride (Normal Saline) 1,000 mls @ 999 mls/hr IRR ONETIME ONE Stop: 08/29/19 13:07 Last Admin: 08/29/19 12:52 Dose: 999 mls/hr Sodium Chloride (Normal Saline) 100 mls @ 60 mls/hr IV ASDIRECTED [facility] Stop: 08/30/19 13:00 Levothyroxine Sodium (Synthroid) 75 mcg PO DAILY [facility] Morphine Sulfate (Morphine) 1 mg IVPUSH ONETIME ONE Stop: 08/29/19 07:47 Last Admin: 08/29/19 08:09 Dose: 1 mg Non-Formulary Medication (Losartan) 50 mg PO BEDTIME [facility] Norepinephrine Bitartrate (Levophed) Confirm Administered Dose 4 mg .ROUTE .STK- MED ONE Stop: 08/24/19 16:39 Last Admin: 08/24/19 16:47 Dose: Not Given Ondansetron HCl (Zofran) 4 mg IVPUSH ONETIME ONE Stop: 08/24/19 07:27 Last Admin: 08/24/19 08:13 Dose: 4 mg Sodium Chloride (Saline Flush) 10 ml FLUSH ONETIME ONE Stop: 08/30/19 09:01 Last Admin: 08/30/19 09:09 Dose: 10 ml Succinylcholine Chloride (Quelicin) 200 mg .ROUTE .STK-MED ONE Stop: 08/24/19 15:01 Vecuronium [place] (Vecuronium) Confirm Administered Dose 10 mg .ROUTE .STK-MED ONE Stop: 08/24/19 20:13 - Exam Wound/Incisions: Drainage (serous), Other (open, being packed but appears well) General: Alert, Cooperative, No Acute Distress Cardiovascular: Regular Rate, Regular Rhythm, No Murmurs GI/Abdominal Exam: Soft, No Organomegaly, No Distention, Tender (appropriately) Sepsis Event Note - Evaluation Sepsis Screening Result: No Definite Risk - Focused Exam Vital Signs: Vital Signs Temp Resp BP BP BP Pulse Ox Pulse Ox 08/30/19 12:00 98 F 16 167/62 H 92 L 08/30/19 11:00 08/30/19 09:10 166/61 H 08/30/19 08:45 94 L 08/30/19 08:00 98.5 F 10 L 135/59 L 165/57 H 93 L 08/30/19 06:17 95 08/30/19 05:04 94 L 08/30/19 04:19 95 08/30/19 04:00 97.9 F 15 147/67 H 95 Pulse Ox 08/30/19 12:00 08/30/19 11:00 93 L 08/30/19 09:10 08/30/19 08:45 08/30/19 08:00 08/30/19 06:17 08/30/19 05:04 08/30/19 04:19 08/30/19 04:00 Date Exam was Performed: 08/30/19 Time Exam was Performed: 15:18 - Problem List Review Problem List Initiated/Reviewed/Updated: No - My Orders Last 24 Hours: Active Orders 24 hr Category Date Time Status aPTT [PTT,PARTIAL THROMBOPLSTIN TIME] [COAG] Routine Lab 08/30/19 17:15 Ordered Chlorthalidone Med 08/30/19 11:00 Active 25 mg PO DAILY Medication Orders Amlodipine Besylate (Norvasc) 10 mg PO DAILY [facility] Last Admin: 08/30/19 09:10 Dose: 10 mg Admin: 08/29/19 12:51 Dose: 10 mg Chlorthalidone (Chlorthalidone) 25 mg PO DAILY [facility] Last Admin: 08/30/19 10:58 Dose: 25 mg Potassium Cl/Dextrose/Lact Ringer's (D5 Lr With 20 Meq Kcl) 1,000 mls @ 50 mls/ hr IV ASDIRECTED [facility] Last Admin: 08/29/19 23:07 Dose: 50 mls/hr Infusion: 08/29/19 21:20 Dose: 50 mls/hr Admin: 08/29/19 01:20 Dose: 50 mls/hr Piperacillin Sod/Tazobactam (Sod 4.5 gm/ Sodium Chloride) 100 mls @ 25 mls/hr IV Q8H [facility] Last Admin: 08/30/19 13:18 Dose: 25 mls/hr Infusion: 08/30/19 09:17 Dose: 25 mls/hr Admin: 08/30/19 05:17 Dose: 25 mls/hr Infusion: 08/30/19 02:55 Dose: 25 mls/hr Admin: 08/29/19 22:55 Dose: 25 mls/hr Infusion: 08/29/19 17:24 Dose: 25 mls/hr Admin: 08/29/19 13:24 Dose: 25 mls/hr Argatroban 250 mg/ Sodium (Chloride) 252.5 mls @ 9.69 mls/hr IV TITRATE [facility]; Protocol Last Admin: 08/30/19 10:44 Dose: 1 mcg/kg/min, 4.84 mls/hr Titration: 08/30/19 10:44 Dose: 2 mcg/kg/min, 9.69 mls/hr Admin: 08/29/19 14:21 Dose: 2 mcg/kg/min, 9.69 mls/hr Morphine Sulfate (Morphine) 1 mg IVPUSH Q4H PRN PRN Reason: Pain Last Admin: 08/30/19 05:17 Dose: 1 mg Admin: 08/29/19 20:28 Dose: 1 mg Admin: 08/29/19 17:44 Dose: 1 mg Admin: 08/29/19 12:50 Dose: 1 mg Pantoprazole Sodium (Protonix Iv) 40 mg IVPUSH DAILY [facility] Last Admin: 08/30/19 09:06 Dose: 40 mg Admin: 08/29/19 08:08 Dose: 40 mg Admin: 08/28/19 08:06 Dose: 40 mg Admin: 08/27/19 08:34 Dose: 40 mg Admin: 08/26/19 08:40 Dose: 40 mg Admin: 08/25/19 08:19 Dose: 40 mg Sodium Chloride (Saline Flush) 10 ml FLUSH ASDIRECTED PRN PRN Reason: Keep Vein Open Last Admin: 08/24/19 08:14 Dose: 10 ml - Assessment Assessment (Free Text/Narrative):: Extubated this AM, doing well post extubation. Wound appears well. Tolerating trickle tube feeds. No bowel function yet. - Plan Plan (Free Text/Narrative):: - continue anticoagulation. If able to perform a CTA a/p or mesenteric duplex to rule out clot it will be great. We may transition to Oral anticoagulant once pt starts to take PO. - No bowel function yet. Continue trickle TF at 20cc/hr until patient has bowel function, then can advance slowly. We will try a prokinetic agent - Reglan - to see if it will help. Can try a Dulcolax suppository as well. - Continue BID dressing changes on the abd wound. - PT/OT eval Please call with any questions.
--- NOTE | 2019-08-30 16:55 | PCM.PN ---
- General Info Date of Service: 08/30/19 Subjective Update: INTERVAL HISTORY: Overnight events: Slept through the night Labs: Pi- 2.3 VS Trend: MAP: 80-90s HR:80s Temp: 97.7 UO: 1139 Balance: +1,845 +12,782 since admission BM: not yet MV: Intubation day:08/24 Cultures: Pansensitive E. coli in urine Nutrition: Vital AF tube feeds with residuals at 20ml/hr - Patient Data Vitals - Most Recent: Last Vital Signs Temp 97.7 F 08/30/19 16:00 Pulse 75 08/29/19 12:30 Resp 15 08/30/19 16:00 BP 170/48 H 08/30/19 16:00 Pulse Ox 90 L 08/30/19 16:00 Weight - Most Recent: 88.088 kg - Exam Quality Assessment: Supplemental Oxygen, Central Line/PICC, Urine Catheter, DVT Prophylaxis Physical Findings Comments:: General: Sedated HEENT: Pupils Equal, Pupils Reactive, Mucous Membr. Moist/[place] Neck: Trachea Midline, +2 Carotid Pulse wo Bruit. No: Lymphadenopathy Lungs: Decreased Breath Sounds, Crackles. No: Rales, Rhonchi, Rub, Wheezing Cardiovascular: Regular Rate, Regular Rhythm. No: Tachycardia, Murmurs, Gallops , Rubs GI/Abdominal Exam: Other (Hypoactive bowel sounds; wound dehiscence) Extremities: Pedal Edema, Slow Capillary Refill Skin: Warm Wound/Incisions: Other (Ex-lap wound dehiscence below umbilicus) Sepsis Event Note - Evaluation Sepsis Screening Result: No Definite Risk - Focused Exam Vital Signs: Vital Signs Temp Resp BP BP BP Pulse Ox Pulse Ox 08/30/19 16:00 97.7 F 15 170/48 H 90 L 08/30/19 15:51 90 L 08/30/19 12:00 98 F 16 167/62 H 92 L 08/30/19 11:00 08/30/19 09:10 166/61 H 08/30/19 08:45 94 L 08/30/19 08:00 98.5 F 10 L 135/59 L 165/57 H 93 L 08/30/19 06:17 95 08/30/19 05:04 94 L Pulse Ox 08/30/19 16:00 08/30/19 15:51 08/30/19 12:00 08/30/19 11:00 93 L 08/30/19 09:10 08/30/19 08:45 08/30/19 08:00 08/30/19 06:17 08/30/19 05:04 Date Exam was Performed: 08/30/19 Time Exam was Performed: 20:51 - Problem List & Annotations (1) Aspiration pneumonia SNOMED Code(s): 050314404 Code(s): J69.0 - PNEUMONITIS DUE TO INHALATION OF FOOD AND VOMIT Status: Acute Current Visit: Yes Qualifiers: Aspiration pneumonia type: due to vomit Laterality: bilateral Lung location: lower lobe of lung Qualified Code(s): J69.0 - Pneumonitis due to inhalation of food and vomit (2) Hypoxia SNOMED Code(s): 054394262 Code(s): R09.02 - HYPOXEMIA Status: Acute Current Visit: Yes (3) Ileitis SNOMED Code(s): 97837164 Code(s): K52.9 - NONINFECTIVE GASTROENTERITIS AND COLITIS, UNSPECIFIED Status: Acute Current Visit: Yes (4) Sepsis SNOMED Code(s): 38366326 Code(s): A41.9 - SEPSIS, UNSPECIFIED ORGANISM Status: Acute Current Visit : Yes Qualifiers: Sepsis type: sepsis due to unspecified organism Sepsis acute organ dysfunction status: unspecified Qualified Code(s): A41.9 - Sepsis, unspecified organism (5) UTI (urinary tract infection) SNOMED Code(s): 73536290 Code(s): N39.0 - URINARY TRACT INFECTION, SITE NOT SPECIFIED Status: Acute Current Visit: Yes Qualifiers: Urinary tract infection type: site unspecified Hematuria presence: without hematuria Qualified Code(s): N39.0 - Urinary tract infection, site not specified (6) Abdominal pain SNOMED Code(s): 41187614 Code(s): R10.9 - UNSPECIFIED ABDOMINAL PAIN Status: Acute Current Visit: No Qualifiers: Abdominal location: epigastric Qualified Code(s): R10.13 - Epigastric pain (7) High anion gap metabolic acidosis SNOMED Code(s): 95334112 Code(s): E87.2 - ACIDOSIS Status: Acute Current Visit: Yes (8) Respiratory alkalosis SNOMED Code(s): 211298500 Code(s): E87.3 - ALKALOSIS Status: Acute Current Visit: Yes (9) Acute abdomen SNOMED Code(s): 9278948 Code(s): R10.0 - ACUTE ABDOMEN Status: Acute Current Visit: Yes (10) Acute kidney failure SNOMED Code(s): 04993022 Code(s): N17.9 - ACUTE KIDNEY FAILURE, UNSPECIFIED Status: Acute Current Visit: Yes (11) Chronic kidney disease, stage 3 SNOMED Code(s): 296116837 Code(s): N18.3 - CHRONIC KIDNEY DISEASE, STAGE 3 (MODERATE) Status: Acute Current Visit: Yes (12) Hypothyroidism SNOMED Code(s): 72792039 Code(s): E03.9 - HYPOTHYROIDISM, UNSPECIFIED Status: Acute Current Visit : Yes (13) [facility] resident SNOMED Code(s): 565453466 Code(s): Z59.3 - PROBLEMS RELATED TO LIVING IN RESIDENTIAL INSTITUTION Status: Acute Current Visit: Yes (14) GERD (gastroesophageal reflux disease) SNOMED Code(s): 464420296 Code(s): K21.9 - GASTRO-ESOPHAGEAL REFLUX DISEASE WITHOUT ESOPHAGITIS Status: Acute Current Visit: No Qualifiers: Esophagitis presence: with esophagitis Qualified Code(s): K21.0 - Gastro- esophageal reflux disease with esophagitis (15) Hypertension SNOMED Code(s): 77919422 Code(s): I10 - ESSENTIAL (PRIMARY) HYPERTENSION Status: Acute Current Visit: No Qualifiers: Hypertension type: essential hypertension (16) Hypokalemia SNOMED Code(s): 90005244 Code(s): E87.6 - HYPOKALEMIA Status: Acute Priority: High Current Visit : No (17) Vascular dementia SNOMED Code(s): 392974781 Code(s): F01.50 - VASCULAR DEMENTIA WITHOUT BEHAVIORAL DISTURBANCE Status: Chronic Current Visit: No Qualifiers: Dementia behavioral disturbance: without behavioral disturbance Qualified Code(s): F01.50 - Vascular dementia without behavioral disturbance (18) Thrombocytopenia SNOMED Code(s): 078597082 Code(s): D69.6 - THROMBOCYTOPENIA, UNSPECIFIED Status: Acute Current Visit: Yes (19) Status post small bowel resection SNOMED Code(s): 892425136878765, 680000131, 113874210425062 Code(s): Z90.49 - ACQUIRED ABSENCE OF OTHER SPECIFIED PARTS OF DIGESTIVE TRACT Status: Acute Current Visit: Yes (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 Rucker Wound dehiscence Decreased oral intake and complaining of abdominal pain-->Abnormal CT --> surgery consulted--> R hemicolectomy and small bowel resection Central line, arterial line and ETT placed Started on norepinephrine with inadequate BP response--> started on dopamine which improved response PaFiO2 ratio 170 but XR was not compatible with ARDS Dopamine and NE are off PLAN - Continue Lr + D5 + KCl - Continue Zosyn - NG tube care - NG at intermittent suction - ETT care - VAP bundle - RT f/u - Suction by nursing - Continue trickle feeds - Pack abdominal wound BID and as needed - Pain control with PRN morphine - SBT today with possible extubation Heparin induced thrombocytopenia Admission platelets 341, today 90 T score 6, highly likely PLAN - Continue Argatroban - PF4 immunoassay ordered Acute kidney failure, improving Chronic kidney disease, stage 3 Lactic acid continued to worsen--> multifactorial with hypoxia and sepsis Urine output has increased significantly PLAN - Monitor urine output - Renally dosed medications - Avoid nephrotoxic agents as much as possible GERD (gastroesophageal reflux disease) No acute issues Needs stress ulcer prophylaxis due to ETT PLAN - Scheduled IV Pantoprazole Hypertension BP on admission stable Started dropping perioperatively requiring vasopressors Pressors off since 08/27 Worsening hypertension PLAN - Continue Amlodipine 10 - Start chlorthalidone - PRN Hydralazine Hypothyroidism No acute issues PLAN - Continue home meds once available Vascular dementia [facility] resident Requires 1 assist for bed mobility, transfer, dressing, personal hygiene and bathing 2 assist for ambulation Continent for bowel Hypothermia, resolved Septic shock, resolved Lactic acidosis, resolved Metabolic acidosis, resolved Respiratory alkalosis, resolved PROPHYLAXIS DVT- SCDs GI- pantoprazole CODE STATUS: FULL CODE DISPOSITION: Patient admitted to the ICU for vasopressors and mechanical ventilation. Taken to OR 14 with subsequent bowel resection. Patient's overall prognosis is very poor with [place] score or 32, predicted mortality of 74%; family aware. Will repeat SBT today to evaluate extubation possibility.
[2019-08-30] MEDS: hydrALAZINE 20 MG/ML SDV IVPUSH PRN ×2 (18:01→21:48)
[2019-08-30] MEDS: Dextrose 5%-Lact Ringers w/KCl 1,000 ML IV SCH (18:01)
[2019-08-31] MEDS: Morphine 2 MG/ML Syringe IVPUSH PRN ×3 (00:05→21:26)
[2019-08-31] MEDS: hydrALAZINE 20 MG/ML SDV IVPUSH PRN (01:25)
[2019-08-31] MEDS: NORMAL SALINE IV SCH (02:52)
[2019-08-31] MEDS: ARGATROBAN IV SCH (02:52)
[2019-08-31] MEDS: Piperacillin/Tazobactam 4.5 GM in Sodium Chloride 0.9% 100 ML IV SCH ×3 (06:06→21:24)
[2019-08-31] MEDS: Potassium Chloride 10 MEQ in Premix Bag 1 BAG IV SCH ×4 (07:47→11:42)
[2019-08-31] MEDS: Pantoprazole 40 MG Vial IVPUSH SCH (09:49)
[2019-08-31] MEDS: amLODIPine 10 MG Tab PO SCH (09:50)
[2019-08-31] MEDS: Potassium Chloride 20 MEQ Tab.ER PO SCH ×2 (09:50→21:24)
[2019-08-31] MEDS: Chlorthalidone 25 MG Tab PO SCH (09:50)
--- NOTE | 2019-08-31 14:32 | PCM.PN ---
- General Info Date of Service: 08/31/19 Subjective Update: Overnight events: Slept through the night Labs: K-2.7 GFR from 22 to 24 Phosphate 2.1 VS Trend: MAP: 90-100 HR:70-80s Temp: 97.9 SatO2 trend: 90-93% on NA at 5L UO: 1102 Balance: +1,645 +13,427 since admission BM: last night Cultures: Pansensitive E. coli in urine Nutrition: Vital AF tube feeds with residuals at 30ml/hr - Patient Data Vitals - Most Recent: Last Vital Signs Temp 96.8 F 08/31/19 12:50 Pulse 77 08/31/19 04:45 Resp 16 08/31/19 12:50 BP 166/71 H 08/31/19 12:50 Pulse Ox 94 L 08/31/19 12:50 Weight - Most Recent: 87.861 kg - Exam Quality Assessment: Supplemental Oxygen, Central Line/PICC, Urine Catheter, DVT Prophylaxis General: Alert, Cooperative, No Acute Distress HEENT: Pupils Equal, Pupils Reactive, EOMI, Mucous Membr. Moist/[place] Neck: Supple, Trachea Midline, No JVD, No Thyromegaly, +2 Carotid Pulse wo Bruit. No: Lymphadenopathy Lungs: Decreased Breath Sounds, Crackles. No: Rales, Rhonchi, Rub, Stridor, Wheezing Cardiovascular: Regular Rate, Regular Rhythm. No: Murmurs, Gallops, Rubs GI/Abdominal Exam: Normal Bowel Sounds, Soft, Non-Tender, Other (wound dehiscence) Extremities: Pedal Edema (Significant swelling of all 4 extremities) Wound/Incisions: Other (wound dehiscence inferior to umbilicus draining serosanguineous fluid) Neurological: No New Focal Deficit Sepsis Event Note - Evaluation Sepsis Screening Result: No Definite Risk - Focused Exam Vital Signs: Vital Signs Temp Pulse Resp BP BP BP BP 08/31/19 12:50 96.8 F 16 166/71 H 08/31/19 12:27 08/31/19 11:00 08/31/19 09:50 173/65 H 08/31/19 08:00 98.3 F 18 174/58 H 08/31/19 06:13 08/31/19 04:45 77 17 08/31/19 04:30 81 18 08/31/19 04:15 79 19 08/31/19 04:01 77 18 08/31/19 04:00 97.0 F 77 20 173/71 H 173/71 H 172/57 H 08/31/19 03:59 86 15 08/31/19 03:45 78 14 08/31/19 03:30 83 18 08/31/19 03:15 76 17 08/31/19 03:00 85 20 08/31/19 02:45 83 18 Pulse Ox Pulse Ox 08/31/19 12:50 94 L 08/31/19 12:27 94 L 08/31/19 11:00 94 L 08/31/19 09:50 08/31/19 08:00 93 L 08/31/19 06:13 93 L 08/31/19 04:45 93 L 08/31/19 04:30 93 L 08/31/19 04:15 93 L 08/31/19 04:01 94 L 08/31/19 04:00 93 L 08/31/19 03:59 92 L 08/31/19 03:45 93 L 08/31/19 03:30 93 L 08/31/19 03:15 93 L 08/31/19 03:00 92 L 08/31/19 02:45 93 L Date Exam was Performed: 08/31/19 Time Exam was Performed: 14:55 - Problem List & Annotations (1) Aspiration pneumonia SNOMED Code(s): 235093552 Code(s): J69.0 - PNEUMONITIS DUE TO INHALATION OF FOOD AND VOMIT Status: Acute Current Visit: Yes Qualifiers: Aspiration pneumonia type: due to vomit Laterality: bilateral Lung location: lower lobe of lung Qualified Code(s): J69.0 - Pneumonitis due to inhalation of food and vomit (2) Hypoxia SNOMED Code(s): 474370886 Code(s): R09.02 - HYPOXEMIA Status: Acute Current Visit: Yes (3) Ileitis SNOMED Code(s): 76321290 Code(s): K52.9 - NONINFECTIVE GASTROENTERITIS AND COLITIS, UNSPECIFIED Status: Acute Current Visit: Yes (4) Sepsis SNOMED Code(s): 12536974 Code(s): A41.9 - SEPSIS, UNSPECIFIED ORGANISM Status: Acute Current Visit : Yes Qualifiers: Sepsis type: sepsis due to unspecified organism Sepsis acute organ dysfunction status: unspecified Qualified Code(s): A41.9 - Sepsis, unspecified organism (5) UTI (urinary tract infection) SNOMED Code(s): 13427361 Code(s): N39.0 - URINARY TRACT INFECTION, SITE NOT SPECIFIED Status: Acute Current Visit: Yes Qualifiers: Urinary tract infection type: site unspecified Hematuria presence: without hematuria Qualified Code(s): N39.0 - Urinary tract infection, site not specified (6) Abdominal pain SNOMED Code(s): 33767027 Code(s): R10.9 - UNSPECIFIED ABDOMINAL PAIN Status: Acute Current Visit: No Qualifiers: Abdominal location: epigastric Qualified Code(s): R10.13 - Epigastric pain (7) High anion gap metabolic acidosis SNOMED Code(s): 57391365 Code(s): E87.2 - ACIDOSIS Status: Acute Current Visit: Yes (8) Respiratory alkalosis SNOMED Code(s): 479598888 Code(s): E87.3 - ALKALOSIS Status: Acute Current Visit: Yes (9) Acute abdomen SNOMED Code(s): 7420367 Code(s): R10.0 - ACUTE ABDOMEN Status: Acute Current Visit: Yes (10) Acute kidney failure SNOMED Code(s): 35954238 Code(s): N17.9 - ACUTE KIDNEY FAILURE, UNSPECIFIED Status: Acute Current Visit: Yes (11) Chronic kidney disease, stage 3 SNOMED Code(s): 459707725 Code(s): N18.3 - CHRONIC KIDNEY DISEASE, STAGE 3 (MODERATE) Status: Acute Current Visit: Yes (12) Hypothyroidism SNOMED Code(s): 76291889 Code(s): E03.9 - HYPOTHYROIDISM, UNSPECIFIED Status: Acute Current Visit : Yes (13) halfway resident SNOMED Code(s): 456714555 Code(s): Z59.3 - PROBLEMS RELATED TO LIVING IN RESIDENTIAL INSTITUTION Status: Acute Current Visit: Yes (14) GERD (gastroesophageal reflux disease) SNOMED Code(s): 962817377 Code(s): K21.9 - GASTRO-ESOPHAGEAL REFLUX DISEASE WITHOUT ESOPHAGITIS Status: Acute Current Visit: No Qualifiers: Esophagitis presence: with esophagitis Qualified Code(s): K21.0 - Gastro- esophageal reflux disease with esophagitis (15) Hypertension SNOMED Code(s): 38909778 Code(s): I10 - ESSENTIAL (PRIMARY) HYPERTENSION Status: Acute Current Visit: No Qualifiers: Hypertension type: essential hypertension (16) Hypokalemia SNOMED Code(s): 66081926 Code(s): E87.6 - HYPOKALEMIA Status: Acute Priority: High Current Visit : No (17) Vascular dementia SNOMED Code(s): 829883729 Code(s): F01.50 - VASCULAR DEMENTIA WITHOUT BEHAVIORAL DISTURBANCE Status: Chronic Current Visit: No Qualifiers: Dementia behavioral disturbance: without behavioral disturbance Qualified Code(s): F01.50 - Vascular dementia without behavioral disturbance (18) Thrombocytopenia SNOMED Code(s): 618541388 Code(s): D69.6 - THROMBOCYTOPENIA, UNSPECIFIED Status: Acute Current Visit: Yes (19) Status post small bowel resection SNOMED Code(s): 870786616886581, 856971189, 289634145263659 Code(s): Z90.49 - ACQUIRED ABSENCE OF OTHER SPECIFIED PARTS OF DIGESTIVE TRACT Status: Acute Current Visit: Yes (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 Rucker Wound dehiscence Decreased oral intake and complaining of abdominal pain-->Abnormal CT --> surgery consulted--> R hemicolectomy and small bowel resection Central line, arterial line and ETT placed Started on norepinephrine with inadequate BP response--> started on dopamine which improved response PaFiO2 ratio 170 but XR was not compatible with ARDS Dopamine and NE are off Extubated yesterday at 11AM and placed on NC Increased tube feeds to 30 BM today PLAN - Stop Lr + D5 + KCl - Continue Zosyn, day 7 - NG tube care - NG at intermittent suction - RT f/u - Suction by nursing - Continue tube feeds at 30 - Pack abdominal wound BID and as needed - Pain control with PRN morphine Heparin induced thrombocytopenia Admission platelets 341, today 90 T score 6, highly likely PLAN - Continue Argatroban - PF4 immunoassay ordered, pending Acute kidney failure, improving Chronic kidney disease, stage 3 Lactic acid continued to worsen--> multifactorial with hypoxia and sepsis Urine output has increased significantly UO 1,102 past 24 hours PLAN - Monitor urine output - Renally dosed medications - Avoid nephrotoxic agents as much as possible GERD (gastroesophageal reflux disease) No acute issues Needs stress ulcer prophylaxis due to ETT PLAN - Scheduled IV Pantoprazole Hypertension BP on admission stable Started dropping perioperatively requiring vasopressors Pressors off since 08/27 Worsening hypertension MAP trend 90-100 PLAN - Continue Amlodipine 10 - Continue chlorthalidone - PRN Hydralazine Hypothyroidism No acute issues PLAN - Continue home meds once available Vascular dementia halfway resident Requires 1 assist for bed mobility, transfer, dressing, personal hygiene and bathing 2 assist for ambulation Continent for bowel Hypothermia, resolved Septic shock, resolved Lactic acidosis, resolved Metabolic acidosis, resolved Respiratory alkalosis, resolved PROPHYLAXIS DVT- SCDs GI- pantoprazole CODE STATUS: FULL CODE DISPOSITION: Patient admitted to the ICU for vasopressors and mechanical ventilation. Taken to OR with subsequent bowel resection. Extubated 08/30 at 11AM, currently on nasal cannula and maintaining O2 sats, responsive and answering with 1-2 words.
--- NOTE | 2019-08-31 14:50 | PCM.SURGPN ---
- General Info Date of Service: 08/31/19 POD#: 7 Post-Op Diagnosis: PNA, UTI, Bowel necrosis Functional Status: Reports: Pain Controlled, Tolerating Diet (TF) - Patient Data Vitals - Most Recent: Last Vital Signs Temp 96.8 F 08/31/19 12:50 Pulse 77 08/31/19 04:45 Resp 16 08/31/19 12:50 BP 166/71 H 08/31/19 12:50 Pulse Ox 94 L 08/31/19 12:50 Weight - Most Recent: 87.861 kg I&O - Last 24 Hours: Intake & Output 08/30/19 08/31/19 08/31/19 22:59 06:59 14:59 Intake Total 1382 1734 1105 Output Total 530 620 280 Balance 852 1114 825 Lab Results Last 24 Hrs: Laboratory Results - last 24 hr 08/30/19 08/31/19 08/31/19 Range/Units 17:30 05:05 05:05 APTT 97 H D 96 H (22-31) SECONDS Sodium 146 H (136-145) mEq/L Potassium 2.7 L (3.5-5.1) mEq/L Chloride 112 H (98-107) mEq/L Carbon Dioxide 22 (21-32) mEq/L Anion Gap 14.7 (5-15) BUN 30 H (7-18) mg/dL Creatinine 1.4 H (0.55-1.02) mg/dL Est Cr Clr Drug Dosing 24.29 mL/min Estimated GFR (MDRD) 36 (>60) mL/min BUN/Creatinine Ratio 21.4 H (14-18) Glucose 117 H (83-115) mg/dL Calcium 7.9 L (8.5-10.1) mg/dL Phosphorus 2.1 L (2.6-4.7) mg/dL Magnesium 2.3 (1.8-2.4) mg/dl Gerardo Results Last 24 Hrs: Microbiology 08/29/19 12:25 Catheter Tip Culture - Final Triple Lumen NO GROWTH AFTER 2 DAYS 08/24/19 12:16 Aerobic Blood Culture - Final Blood - Venous NO GROWTH AFTER 7 DAYS Anaerobic Blood Culture - Final NO GROWTH AFTER 7 DAYS 08/24/19 12:24 Aerobic Blood Culture - Final Blood - Venous - Lab Draw NO GROWTH AFTER 7 DAYS Anaerobic Blood Culture - Final NO GROWTH AFTER 7 DAYS 08/28/19 11:27 Wound Culture - Final Abdominal Fluid - Drainage Rosy Albicans Med Orders - Current: Current Medications Amlodipine Besylate (Norvasc) 10 mg PO DAILY [facility] Last Admin: 08/31/19 09:50 Dose: 10 mg Chlorthalidone (Chlorthalidone) 25 mg PO DAILY [facility] Last Admin: 08/31/19 09:50 Dose: 25 mg Hydralazine HCl (Apresoline) 10 mg IVPUSH Q2H PRN PRN Reason: Systolic >180 / Diastolic >100 Last Admin: 08/31/19 01:25 Dose: 10 mg Piperacillin Sod/Tazobactam (Sod 4.5 gm/ Sodium Chloride) 100 mls @ 25 mls/hr IV Q8H [facility] Last Admin: 08/31/19 13:37 Dose: 25 mls/hr Argatroban 250 mg/ Sodium (Chloride) 252.5 mls @ 9.69 mls/hr IV TITRATE [facility]; Protocol Last Admin: 08/31/19 02:52 Dose: 1 mcg/kg/min, 4.84 mls/hr Morphine Sulfate (Morphine) 1 mg IVPUSH Q4H PRN PRN Reason: Pain Last Admin: 08/31/19 14:27 Dose: 1 mg Pantoprazole Sodium (Protonix Iv) 40 mg IVPUSH DAILY [facility] Last Admin: 08/31/19 09:49 Dose: 40 mg Potassium Chloride (Klor-Con M20) 20 meq PO BID [facility] Last Admin: 08/31/19 09:50 Dose: 20 meq Sodium Chloride (Saline Flush) 10 ml FLUSH ASDIRECTED PRN PRN Reason: Keep Vein Open Last Admin: 08/24/19 08:14 Dose: 10 ml Discontinued Medications Atropine Sulfate (Atropine 0.1 Mg/Ml) 0.5 mg IVPUSH ONETIME ONE Stop: 08/27/19 07:57 Last Admin: 08/27/19 08:09 Dose: 0.5 mg Bumetanide (Bumex) 1 mg IVPUSH ONETIME ONE Stop: 08/25/19 22:49 Last Admin: 08/26/19 00:07 Dose: 1 mg Bumetanide (Bumex) 1 mg IVPUSH BID [facility] Last Admin: 08/28/19 08:06 Dose: 1 mg Dextrose/Water (Dextrose 50% In Water) 25 ml IVPUSH NOW STA Stop: 08/27/19 05:41 Last Admin: 08/27/19 05:47 Dose: 25 ml Enoxaparin Sodium (Lovenox) 70 mg SUBCUT Q24H [facility] Last Admin: 08/28/19 11:48 Dose: 70 mg Ephedrine Sulfate (Ephedrine In Ns) Confirm Administered Dose 25 mg .ROUTE .STK- MED ONE Stop: 08/24/19 21:32 Etomidate (Amidate) 40 mg IVPUSH .STK-MED ONE Stop: 08/24/19 15:01 Fentanyl (Sublimaze) Confirm Administered Dose 250 mcg .ROUTE .STK-MED ONE Stop: 08/24/19 18:10 Heparin Sodium (Porcine) (Heparin Sodium) 5,000 units IVPUSH .BOLUS ONE Stop: 08/25/19 13:27 Last Admin: 08/25/19 14:11 Dose: 5,000 units Heparin Sodium (Porcine) (Heparin Lock Flush 100 Units/Ml) Confirm Administered Dose 500 units .ROUTE .STK-MED ONE Stop: 08/25/19 22:38 Last Admin: 08/25/19 23:02 Dose: 500 units Hydralazine HCl (Apresoline) 10 mg IVPUSH ONETIME ONE Stop: 08/29/19 07:47 Last Admin: 08/29/19 08:08 Dose: 10 mg Hydralazine HCl (Apresoline) 10 mg IVPUSH ONETIME ONE Stop: 08/30/19 11:55 Last Admin: 08/30/19 12:03 Dose: 10 mg Hydrocortisone Sodium Succinate (Solu-Cortef) 50 mg IV Q8H [facility] Last Admin: 08/29/19 12:21 Dose: 50 mg Hydromorphone HCl (Dilaudid) 0.5 mg IVPUSH ONETIME ONE Stop: 08/24/19 07:28 Last Admin: 08/24/19 08:15 Dose: 0.5 mg Sodium Chloride (Normal Saline) 1,000 mls @ 1,000 mls/hr IV .BOLUS STA Stop: 08/24/19 08:25 Last Admin: 08/24/19 08:13 Dose: 1,000 mls/hr Cefepime HCl 2 gm/ Premix 50 mls @ 100 mls/hr IV ONETIME ONE Stop: 08/24/19 13:18 Last Admin: 08/24/19 13:19 Dose: 100 mls/hr Lactated Ringer's (Ringers, Lactated) 1,100 mls @ 1,000 mls/hr IV .BOLUS ONE Stop: 08/24/19 14:13 Last Admin: 08/24/19 13:40 Dose: 1,000 mls/hr Levofloxacin/Dextrose 750 mg/ (Premix) 150 mls @ 100 mls/hr IV ONETIME ONE Stop: 08/24/19 15:07 Last Admin: 08/24/19 16:03 Dose: 100 mls/hr Piperacillin Sod/Tazobactam (Sod 4.5 gm/ Sodium Chloride) 100 mls @ 25 mls/hr IV Q8H [facility] Last Admin: 08/26/19 05:13 Dose: 25 mls/hr Vancomycin HCl 1 gm/ Sodium (Chloride) 250 mls @ 250 mls/hr IV ONETIME ONE Stop: 08/24/19 14:37 Last Admin: 08/24/19 16:06 Dose: 250 mls/hr Fentanyl 2,500 mcg/ Sodium (Chloride) 250 mls @ 7.27 mls/hr IV TITRATE [facility]; Protocol Last Titration: 08/28/19 04:23 Dose: 0 mcg/kg/hr, 0 mls/hr Midazolam HCl 50 mg/ Sodium (Chloride) 50 mls @ 0.5 mls/hr IV TITRATE [facility]; Protocol Stop: 08/25/19 15:29 Last Titration: 08/25/19 11:57 Dose: 2 mg/hr, 2 mls/hr Lactated Ringer's (Ringers, Lactated) 1,000 mls @ 125 mls/hr IV ASDIRECTED [facility] Last Admin: 08/25/19 01:00 Dose: 125 mls/hr Norepinephrine Bitartrate 4 mg (/ Dextrose/Water) 250 mls @ 7.5 mls/hr IV TITRATE [facility]; Protocol Last Titration: 08/27/19 07:25 Dose: 0 mcg/min, 0 mls/hr Sodium Chloride (Normal Saline) Confirm Administered Dose 1,000 mls @ as directed .ROUTE .STK-MED ONE Stop: 08/24/19 17:09 Last Admin: 08/24/19 17:16 Dose: 1 mls/hr Lactated Ringer's (Ringers, Lactated) Confirm Administered Dose 1,000 mls @ as directed .ROUTE .[facility] ONE Stop: 08/24/19 18:34 Lactated Ringer's (Ringers, Lactated) Confirm Administered Dose 1,000 mls @ as directed .ROUTE .[facility] ONE Stop: 08/24/19 19:10 Lactated Ringer's (Ringers, Lactated) Confirm Administered Dose 1,000 mls @ as directed .ROUTE .[facility] ONE Stop: 08/24/19 19:46 Lactated Ringer's (Ringers, Lactated) Confirm Administered Dose 1,000 mls @ as directed .ROUTE .[facility] ONE Stop: 08/24/19 20:40 Lactated Ringer's (Ringers, Lactated) 1,000 mls @ 250 mls/hr IV ASDIRECTED [facility] Last Infusion: 08/26/19 12:28 Dose: Infused Lactated Ringer's (Ringers, Lactated) 1,000 mls @ 999 mls/hr IV .BOLUS ONE Stop: 08/25/19 09:03 Last Admin: 08/25/19 08:10 Dose: 999 mls/hr Heparin Sodium/Dextrose (Heparin 25,000 Units In D5w 500 Ml) 25,000 units in 500 mls @ 26 mls/hr IV TITRATE [facility]; Protocol Last Admin: 08/26/19 08:24 Dose: 22 units/kg/hr, 32.013 mls/hr Dopamine HCl/Dextrose (Dopamine In D5w 400 Mg/250 Ml) 400 mg in 250 mls @ 5.457 mls/hr IV TITRATE [facility]; Protocol Last Titration: 08/26/19 15:20 Dose: 0 mcg/kg/min, 0 mls/hr Lactated Ringer's (Ringers, Lactated) 2,000 mls @ 999 mls/hr IV .[facility]OLUS ONE Stop: 08/25/19 17:52 Last Admin: 08/25/19 16:11 Dose: 999 mls/hr Lactated Ringer's (Ringers, Lactated) 1,000 mls @ 999 mls/hr IV .BOLUS ONE Stop: 08/25/19 17:13 Last Admin: 08/25/19 16:48 Dose: 999 mls/hr Midazolam HCl 50 mg/ Sodium (Chloride) 50 mls @ 0.5 mls/hr IV TITRATE [facility]; Protocol Last Titration: 08/27/19 07:55 Dose: 0 mg/hr, 0 mls/hr Albumin Human (Flexbumin 25%) 25 gm in 100 mls @ 100 mls/hr IV Q1H [facility] Stop: 08/26/19 00:46 Last Admin: 08/26/19 00:07 Dose: 100 mls/hr Albumin Human (Flexbumin 25%) 12.5 gm in 50 mls @ 100 mls/hr IV Q8H [facility] Stop: 08/29/19 07:01 Last Admin: 08/29/19 05:59 Dose: 100 mls/hr Lactated Ringer's (Ringers, Lactated) 1,000 mls @ 200 mls/hr IV ASDIRECTED [facility] Last Infusion: 08/26/19 12:30 Dose: 100 mls/hr Magnesium Sulfate 4 gm/ Premix 100 mls @ 25 mls/hr IV ONETIME ONE Stop: 08/26/19 07:31 Last Admin: 08/26/19 06:48 Dose: 25 mls/hr Piperacillin Sod/Tazobactam (Sod 4.5 gm/ Sodium Chloride) 100 mls @ 25 mls/hr IV Q12H [facility] Stop: 08/29/19 10:00 Last Admin: 08/29/19 07:09 Dose: Not Given Lactated Ringer's (Ringers, Lactated) 1,000 mls @ 100 mls/hr IV ASDIRECTED [facility] Last Admin: 08/26/19 18:09 Dose: 100 mls/hr Dextrose/Water (Dextrose 10% In Water) 1,000 mls @ 25 mls/hr IV ASDIRECTED [facility] Dextrose/Water (Dextrose 10% In Water) 1,000 mls @ 25 mls/hr IV ASDIRECTED [facility] Last Admin: 08/27/19 05:52 Dose: 25 mls/hr Dextrose/Water (Dextrose 10% In Water) Confirm Administered Dose 1,000 mls @ as directed .ROUTE .STK-MED ONE Stop: 08/27/19 05:47 Last Admin: 08/27/19 05:56 Dose: Not Given Potassium Cl/Dextrose/Lact Ringer's (D5 Lr With 20 Meq Kcl) 1,000 mls @ 100 mls /hr IV ASDIRECTED [facility] Last Infusion: 08/28/19 11:57 Dose: 50 mls/hr Potassium Chloride 10 meq/ (Premix) 100 mls @ 100 mls/hr IV Q1H [facility] Stop: 08/27/19 12:59 Last Admin: 08/27/19 12:55 Dose: 100 mls/hr Potassium Chloride 10 meq/ (Premix) 100 mls @ 100 mls/hr IV Q1H [facility] Stop: 08/28/19 15:29 Last Admin: 08/28/19 15:11 Dose: 100 mls/hr Potassium Cl/Dextrose/Lact Ringer's (D5 Lr With 20 Meq Kcl) 1,000 mls @ 50 mls/ hr IV ASDIRECTED [facility] Last Admin: 08/30/19 18:01 Dose: 50 mls/hr Potassium Chloride 10 meq/ (Premix) 100 mls @ 100 mls/hr IV Q1H [facility] Stop: 08/29/19 17:59 Last Admin: 08/29/19 17:47 Dose: 100 mls/hr Magnesium Sulfate 2 gm/ Premix 50 mls @ 25 mls/hr IV 1200,2100 [facility] Stop: 08/29/19 22:59 Last Admin: 08/29/19 20:25 Dose: 25 mls/hr Sodium Chloride (Normal Saline) 1,000 mls @ 999 mls/hr IRR ONETIME ONE Stop: 08/29/19 13:07 Last Admin: 08/29/19 12:52 Dose: 999 mls/hr Sodium Chloride (Normal Saline) 100 mls @ 60 mls/hr IV ASDIRECTED [facility] Stop: 08/30/19 13:00 Potassium Chloride 10 meq/ (Premix) 100 mls @ 100 mls/hr IV Q1H [facility] Stop: 08/31/19 11:29 Last Admin: 08/31/19 11:42 Dose: 100 mls/hr Levothyroxine Sodium (Synthroid) 75 mcg PO DAILY [facility] Morphine Sulfate (Morphine) 1 mg IVPUSH ONETIME ONE Stop: 08/29/19 07:47 Last Admin: 08/29/19 08:09 Dose: 1 mg Non-Formulary Medication (Losartan) 50 mg PO BEDTIME [facility] Norepinephrine Bitartrate (Levophed) Confirm Administered Dose 4 mg .ROUTE .STK- MED ONE Stop: 08/24/19 16:39 Last Admin: 08/24/19 16:47 Dose: Not Given Ondansetron HCl (Zofran) 4 mg IVPUSH ONETIME ONE Stop: 08/24/19 07:27 Last Admin: 08/24/19 08:13 Dose: 4 mg Sodium Chloride (Saline Flush) 10 ml FLUSH ONETIME ONE Stop: 08/30/19 09:01 Last Admin: 08/30/19 09:09 Dose: 10 ml Succinylcholine Chloride (Quelicin) 200 mg .ROUTE .STK-MED ONE Stop: 08/24/19 15:01 Vecuronium [place] (Vecuronium) Confirm Administered Dose 10 mg .ROUTE .STK-MED ONE Stop: 08/24/19 20:13 - Exam Wound/Incisions: Healing Well, Drainage (still present) General: Cooperative, No Acute Distress GI/Abdominal Exam: Soft, No Distention, Tender (appropriately) Sepsis Event Note - Evaluation Sepsis Screening Result: No Definite Risk - Focused Exam Vital Signs: Vital Signs Temp Pulse Resp BP BP BP BP 08/31/19 12:50 96.8 F 16 166/71 H 08/31/19 12:27 08/31/19 11:00 08/31/19 09:50 173/65 H 08/31/19 08:00 98.3 F 18 174/58 H 08/31/19 06:13 08/31/19 04:45 77 17 08/31/19 04:30 81 18 08/31/19 04:15 79 19 08/31/19 04:01 77 18 08/31/19 04:00 97.0 F 77 20 173/71 H 173/71 H 172/57 H 08/31/19 03:59 86 15 08/31/19 03:45 78 14 08/31/19 03:30 83 18 08/31/19 03:15 76 17 08/31/19 03:00 85 20 08/31/19 02:45 83 18 Pulse Ox Pulse Ox 08/31/19 12:50 94 L 08/31/19 12:27 94 L 08/31/19 11:00 94 L 08/31/19 09:50 08/31/19 08:00 93 L 08/31/19 06:13 93 L 08/31/19 04:45 93 L 08/31/19 04:30 93 L 08/31/19 04:15 93 L 08/31/19 04:01 94 L 08/31/19 04:00 93 L 08/31/19 03:59 92 L 08/31/19 03:45 93 L 08/31/19 03:30 93 L 08/31/19 03:15 93 L 08/31/19 03:00 92 L 08/31/19 02:45 93 L Date Exam was Performed: 08/31/19 Time Exam was Performed: 14:43 - Problem List Review Problem List Initiated/Reviewed/Updated: No - My Orders Last 24 Hours: Active Orders 24 hr Category Date Time Status Potassium Chloride [Klor-Con M20] Med 08/31/19 09:00 Active 20 meq PO BID hydrALAZINE [Apresoline] Med 08/30/19 17:20 Active 10 mg IVPUSH Q2H PRN Medication Orders Amlodipine Besylate (Norvasc) 10 mg PO DAILY [facility] Last Admin: 08/31/19 09:50 Dose: 10 mg Admin: 08/30/19 09:10 Dose: 10 mg Admin: 08/29/19 12:51 Dose: 10 mg Chlorthalidone (Chlorthalidone) 25 mg PO DAILY [facility] Last Admin: 08/31/19 09:50 Dose: 25 mg Admin: 08/30/19 10:58 Dose: 25 mg Hydralazine HCl (Apresoline) 10 mg IVPUSH Q2H PRN PRN Reason: Systolic >180 / Diastolic >100 Last Admin: 08/31/19 01:25 Dose: 10 mg Admin: 08/30/19 21:48 Dose: 10 mg Admin: 08/30/19 18:01 Dose: 10 mg Piperacillin Sod/Tazobactam (Sod 4.5 gm/ Sodium Chloride) 100 mls @ 25 mls/hr IV Q8H [facility] Last Admin: 08/31/19 13:37 Dose: 25 mls/hr Infusion: 08/31/19 10:06 Dose: 25 mls/hr Admin: 08/31/19 06:06 Dose: 25 mls/hr Infusion: 08/31/19 01:52 Dose: 25 mls/hr Admin: 08/30/19 21:52 Dose: 25 mls/hr Infusion: 08/30/19 17:18 Dose: 25 mls/hr Admin: 08/30/19 13:18 Dose: 25 mls/hr Infusion: 08/30/19 09:17 Dose: 25 mls/hr Admin: 08/30/19 05:17 Dose: 25 mls/hr Infusion: 08/30/19 02:55 Dose: 25 mls/hr Admin: 08/29/19 22:55 Dose: 25 mls/hr Infusion: 08/29/19 17:24 Dose: 25 mls/hr Admin: 08/29/19 13:24 Dose: 25 mls/hr Argatroban 250 mg/ Sodium (Chloride) 252.5 mls @ 9.69 mls/hr IV TITRATE [facility]; Protocol Last Admin: 08/31/19 02:52 Dose: 1 mcg/kg/min, 4.84 mls/hr Titration: 08/31/19 02:52 Dose: 1 mcg/kg/min, 4.84 mls/hr Titration: 08/30/19 21:04 Dose: 1 mcg/kg/min, 4.84 mls/hr Titration: 08/30/19 19:05 Dose: 0 mcg/kg/min, 0 mls/hr Admin: 08/30/19 15:25 Dose: 1 mcg/kg/min, 4.84 mls/hr Titration: 08/30/19 15:25 Dose: 1 mcg/kg/min, 4.84 mls/hr Admin: 08/30/19 10:44 Dose: 1 mcg/kg/min, 4.84 mls/hr Titration: 08/30/19 10:44 Dose: 2 mcg/kg/min, 9.69 mls/hr Admin: 08/29/19 14:21 Dose: 2 mcg/kg/min, 9.69 mls/hr Morphine Sulfate (Morphine) 1 mg IVPUSH Q4H PRN PRN Reason: Pain Last Admin: 08/31/19 14:27 Dose: 1 mg Admin: 08/31/19 00:05 Dose: 1 mg Admin: 08/30/19 05:17 Dose: 1 mg Admin: 08/29/19 20:28 Dose: 1 mg Admin: 08/29/19 17:44 Dose: 1 mg Admin: 08/29/19 12:50 Dose: 1 mg Pantoprazole Sodium (Protonix Iv) 40 mg IVPUSH DAILY [facility] Last Admin: 08/31/19 09:49 Dose: 40 mg Admin: 08/30/19 09:06 Dose: 40 mg Admin: 08/29/19 08:08 Dose: 40 mg Admin: 08/28/19 08:06 Dose: 40 mg Admin: 08/27/19 08:34 Dose: 40 mg Admin: 08/26/19 08:40 Dose: 40 mg Admin: 08/25/19 08:19 Dose: 40 mg Potassium Chloride (Klor-Con M20) 20 meq PO BID [facility] Last Admin: 08/31/19 09:50 Dose: 20 meq Sodium Chloride (Saline Flush) 10 ml FLUSH ASDIRECTED PRN PRN Reason: Keep Vein Open Last Admin: 08/24/19 08:14 Dose: 10 ml - Assessment Assessment (Free Text/Narrative):: POD7 s/p ex lap, SBR, R hemicolectomy for bowel necrosis. Also had PNA and UTI. Progressing well. TOlerating TF. Has a BM. - Plan Plan (Free Text/Narrative):: - Increase TF rate by 10ml/hr until she gets to 65mL/hr. She will need a swallow eval if possible before starting PO, likely Monday - Cont anticoagulation as tolerated. Will switch to PO meds once taking tolerating oral intake - K has been repleted today - Cont PT/OT - Cont BID dressing changes (and when soaked) as you are doing.
[2019-09-01] MEDS: ARGATROBAN IV SCH (02:30)
[2019-09-01] MEDS: NORMAL SALINE IV SCH (02:30)
[2019-09-01] MEDS: Morphine 2 MG/ML Syringe IVPUSH PRN (02:33)
[2019-09-01] MEDS: Piperacillin/Tazobactam 4.5 GM in Sodium Chloride 0.9% 100 ML IV SCH ×3 (05:47→22:02)
[2019-09-01] MEDS: Chlorthalidone 25 MG Tab PO SCH (08:50)
[2019-09-01] MEDS: Pantoprazole 40 MG Vial IVPUSH SCH (08:50)
[2019-09-01] MEDS: amLODIPine 10 MG Tab PO SCH (08:51)
[2019-09-01] MEDS: Potassium Chloride 20 MEQ Tab.ER PO SCH (08:51)
[2019-09-01] MEDS ORDERED: Potassium Chloride 10% 20 MEQ/15 ML Soln 15 ML UD Cup NGTUBE ONE (12:00)
[2019-09-01] MEDS ORDERED: Potassium Chloride 20 MEQ Tab.ER PO ONE (12:00)
--- NOTE | 2019-09-01 14:39 | PCM.SURGPN ---
- General Info Date of Service: 09/01/19 POD#: 8 Post-Op Diagnosis: PNA, UTI, Bowel necrosis Functional Status: Reports: Pain Controlled - Patient Data Vitals - Most Recent: Last Vital Signs Temp 97.6 F 09/01/19 11:47 Pulse 83 09/01/19 01:15 Resp 20 09/01/19 11:47 BP 146/79 H 09/01/19 11:47 Pulse Ox 93 L 09/01/19 11:47 Weight - Most Recent: 86.137 kg I&O - Last 24 Hours: Intake & Output 08/31/19 09/01/19 09/01/19 22:59 06:59 14:59 Intake Total 418 1571 100 Output Total 715 345 435 Balance -297 1226 -335 Lab Results Last 24 Hrs: Laboratory Results - last 24 hr 09/01/19 09/01/19 Range/Units 05:13 05:13 APTT 90 H D (22-31) SECONDS Sodium 147 H (136-145) mEq/L Potassium 3.1 L (3.5-5.1) mEq/L Chloride 113 H (98-107) mEq/L Carbon Dioxide 23 (21-32) mEq/L Anion Gap 14.1 (5-15) BUN 27 H (7-18) mg/dL Creatinine 1.2 H (0.55-1.02) mg/dL Est Cr Clr Drug Dosing 28.34 mL/min Estimated GFR (MDRD) 43 (>60) mL/min BUN/Creatinine Ratio 22.5 H (14-18) Glucose 131 H (83-115) mg/dL Calcium 8.0 L (8.5-10.1) mg/dL Phosphorus 2.7 (2.6-4.7) mg/dL Magnesium 2.1 (1.8-2.4) mg/dl Gerardo Results Last 24 Hrs: Microbiology 08/29/19 12:25 Catheter Tip Culture - Final Triple Lumen NO GROWTH AFTER 2 DAYS 08/24/19 12:16 Aerobic Blood Culture - Final Blood - Venous NO GROWTH AFTER 7 DAYS Anaerobic Blood Culture - Final NO GROWTH AFTER 7 DAYS 08/24/19 12:24 Aerobic Blood Culture - Final Blood - Venous - Lab Draw NO GROWTH AFTER 7 DAYS Anaerobic Blood Culture - Final NO GROWTH AFTER 7 DAYS 08/28/19 11:27 Wound Culture - Final Abdominal Fluid - Drainage Rosy Albicans Med Orders - Current: Current Medications Amlodipine Besylate (Norvasc) 10 mg PO DAILY [facility] Last Admin: 09/01/19 08:51 Dose: 10 mg Chlorthalidone (Chlorthalidone) 25 mg PO DAILY [facility] Last Admin: 09/01/19 08:50 Dose: 25 mg Hydralazine HCl (Apresoline) 10 mg IVPUSH Q2H PRN PRN Reason: Systolic >180 / Diastolic >100 Last Admin: 08/31/19 01:25 Dose: 10 mg Piperacillin Sod/Tazobactam (Sod 4.5 gm/ Sodium Chloride) 100 mls @ 25 mls/hr IV Q8H [facility] Last Admin: 09/01/19 05:47 Dose: 25 mls/hr Argatroban 250 mg/ Sodium (Chloride) 252.5 mls @ 9.69 mls/hr IV TITRATE [facility]; Protocol Last Admin: 09/01/19 02:30 Dose: 1 mcg/kg/min, 4.84 mls/hr Morphine Sulfate (Morphine) 1 mg IVPUSH Q4H PRN PRN Reason: Pain Last Admin: 09/01/19 02:33 Dose: 1 mg Pantoprazole Sodium (Protonix Iv) 40 mg IVPUSH DAILY [facility] Last Admin: 09/01/19 08:50 Dose: 40 mg Potassium Chloride (Potassium Chloride Solution) 20 meq NGTUBE BID [facility] Sodium Chloride (Saline Flush) 10 ml FLUSH ASDIRECTED PRN PRN Reason: Keep Vein Open Last Admin: 08/24/19 08:14 Dose: 10 ml Discontinued Medications Atropine Sulfate (Atropine 0.1 Mg/Ml) 0.5 mg IVPUSH ONETIME ONE Stop: 08/27/19 07:57 Last Admin: 08/27/19 08:09 Dose: 0.5 mg Bumetanide (Bumex) 1 mg IVPUSH ONETIME ONE Stop: 08/25/19 22:49 Last Admin: 08/26/19 00:07 Dose: 1 mg Bumetanide (Bumex) 1 mg IVPUSH BID [facility] Last Admin: 08/28/19 08:06 Dose: 1 mg Dextrose/Water (Dextrose 50% In Water) 25 ml IVPUSH NOW STA Stop: 08/27/19 05:41 Last Admin: 08/27/19 05:47 Dose: 25 ml Enoxaparin Sodium (Lovenox) 70 mg SUBCUT Q24H [facility] Last Admin: 08/28/19 11:48 Dose: 70 mg Ephedrine Sulfate (Ephedrine In Ns) Confirm Administered Dose 25 mg .ROUTE .STK- MED ONE Stop: 08/24/19 21:32 Etomidate (Amidate) 40 mg IVPUSH .STK-MED ONE Stop: 08/24/19 15:01 Fentanyl (Sublimaze) Confirm Administered Dose 250 mcg .ROUTE .STK-MED ONE Stop: 08/24/19 18:10 Heparin Sodium (Porcine) (Heparin Sodium) 5,000 units IVPUSH .BOLUS ONE Stop: 08/25/19 13:27 Last Admin: 08/25/19 14:11 Dose: 5,000 units Heparin Sodium (Porcine) (Heparin Lock Flush 100 Units/Ml) Confirm Administered Dose 500 units .ROUTE .STK-MED ONE Stop: 08/25/19 22:38 Last Admin: 08/25/19 23:02 Dose: 500 units Hydralazine HCl (Apresoline) 10 mg IVPUSH ONETIME ONE Stop: 08/29/19 07:47 Last Admin: 08/29/19 08:08 Dose: 10 mg Hydralazine HCl (Apresoline) 10 mg IVPUSH ONETIME ONE Stop: 08/30/19 11:55 Last Admin: 08/30/19 12:03 Dose: 10 mg Hydrocortisone Sodium Succinate (Solu-Cortef) 50 mg IV Q8H [facility] Last Admin: 08/29/19 12:21 Dose: 50 mg Hydromorphone HCl (Dilaudid) 0.5 mg IVPUSH ONETIME ONE Stop: 08/24/19 07:28 Last Admin: 08/24/19 08:15 Dose: 0.5 mg Sodium Chloride (Normal Saline) 1,000 mls @ 1,000 mls/hr IV .BOLUS STA Stop: 08/24/19 08:25 Last Admin: 08/24/19 08:13 Dose: 1,000 mls/hr Cefepime HCl 2 gm/ Premix 50 mls @ 100 mls/hr IV ONETIME ONE Stop: 08/24/19 13:18 Last Admin: 08/24/19 13:19 Dose: 100 mls/hr Lactated Ringer's (Ringers, Lactated) 1,100 mls @ 1,000 mls/hr IV .BOLUS ONE Stop: 08/24/19 14:13 Last Admin: 08/24/19 13:40 Dose: 1,000 mls/hr Levofloxacin/Dextrose 750 mg/ (Premix) 150 mls @ 100 mls/hr IV ONETIME ONE Stop: 08/24/19 15:07 Last Admin: 08/24/19 16:03 Dose: 100 mls/hr Piperacillin Sod/Tazobactam (Sod 4.5 gm/ Sodium Chloride) 100 mls @ 25 mls/hr IV Q8H [facility] Last Admin: 08/26/19 05:13 Dose: 25 mls/hr Vancomycin HCl 1 gm/ Sodium (Chloride) 250 mls @ 250 mls/hr IV ONETIME ONE Stop: 08/24/19 14:37 Last Admin: 08/24/19 16:06 Dose: 250 mls/hr Fentanyl 2,500 mcg/ Sodium (Chloride) 250 mls @ 7.27 mls/hr IV TITRATE [facility]; Protocol Last Titration: 08/28/19 04:23 Dose: 0 mcg/kg/hr, 0 mls/hr Midazolam HCl 50 mg/ Sodium (Chloride) 50 mls @ 0.5 mls/hr IV TITRATE [facility]; Protocol Stop: 08/25/19 15:29 Last Titration: 08/25/19 11:57 Dose: 2 mg/hr, 2 mls/hr Lactated Ringer's (Ringers, Lactated) 1,000 mls @ 125 mls/hr IV ASDIRECTED [facility] Last Admin: 08/25/19 01:00 Dose: 125 mls/hr Norepinephrine Bitartrate 4 mg (/ Dextrose/Water) 250 mls @ 7.5 mls/hr IV TITRATE [facility]; Protocol Last Titration: 08/27/19 07:25 Dose: 0 mcg/min, 0 mls/hr Sodium Chloride (Normal Saline) Confirm Administered Dose 1,000 mls @ as directed .ROUTE .STK-MED ONE Stop: 08/24/19 17:09 Last Admin: 08/24/19 17:16 Dose: 1 mls/hr Lactated Ringer's (Ringers, Lactated) Confirm Administered Dose 1,000 mls @ as directed .ROUTE .STK-MED ONE Stop: 08/24/19 18:34 Lactated Ringer's (Ringers, Lactated) Confirm Administered Dose 1,000 mls @ as directed .ROUTE .[facility] ONE Stop: 08/24/19 19:10 Lactated Ringer's (Ringers, Lactated) Confirm Administered Dose 1,000 mls @ as directed .ROUTE .[facility] ONE Stop: 08/24/19 19:46 Lactated Ringer's (Ringers, Lactated) Confirm Administered Dose 1,000 mls @ as directed .ROUTE .[facility] ONE Stop: 08/24/19 20:40 Lactated Ringer's (Ringers, Lactated) 1,000 mls @ 250 mls/hr IV ASDIRECTED [facility] Last Infusion: 08/26/19 12:28 Dose: Infused Lactated Ringer's (Ringers, Lactated) 1,000 mls @ 999 mls/hr IV .BOLUS ONE Stop: 08/25/19 09:03 Last Admin: 08/25/19 08:10 Dose: 999 mls/hr Heparin Sodium/Dextrose (Heparin 25,000 Units In D5w 500 Ml) 25,000 units in 500 mls @ 26 mls/hr IV TITRATE [facility]; Protocol Last Admin: 08/26/19 08:24 Dose: 22 units/kg/hr, 32.013 mls/hr Dopamine HCl/Dextrose (Dopamine In D5w 400 Mg/250 Ml) 400 mg in 250 mls @ 5.457 mls/hr IV TITRATE [facility]; Protocol Last Titration: 08/26/19 15:20 Dose: 0 mcg/kg/min, 0 mls/hr Lactated Ringer's (Ringers, Lactated) 2,000 mls @ 999 mls/hr IV .BOLUS ONE Stop: 08/25/19 17:52 Last Admin: 08/25/19 16:11 Dose: 999 mls/hr Lactated Ringer's (Ringers, Lactated) 1,000 mls @ 999 mls/hr IV .BOLUS ONE Stop: 08/25/19 17:13 Last Admin: 08/25/19 16:48 Dose: 999 mls/hr Midazolam HCl 50 mg/ Sodium (Chloride) 50 mls @ 0.5 mls/hr IV TITRATE [facility]; Protocol Last Titration: 08/27/19 07:55 Dose: 0 mg/hr, 0 mls/hr Albumin Human (Flexbumin 25%) 25 gm in 100 mls @ 100 mls/hr IV Q1H [facility] Stop: 08/26/19 00:46 Last Admin: 08/26/19 00:07 Dose: 100 mls/hr Albumin Human (Flexbumin 25%) 12.5 gm in 50 mls @ 100 mls/hr IV Q8H [facility] Stop: 08/29/19 07:01 Last Admin: 08/29/19 05:59 Dose: 100 mls/hr Lactated Ringer's (Ringers, Lactated) 1,000 mls @ 200 mls/hr IV ASDIRECTED [facility] Last Infusion: 08/26/19 12:30 Dose: 100 mls/hr Magnesium Sulfate 4 gm/ Premix 100 mls @ 25 mls/hr IV ONETIME ONE Stop: 08/26/19 07:31 Last Admin: 08/26/19 06:48 Dose: 25 mls/hr Piperacillin Sod/Tazobactam (Sod 4.5 gm/ Sodium Chloride) 100 mls @ 25 mls/hr IV Q12H [facility] Stop: 08/29/19 10:00 Last Admin: 08/29/19 07:09 Dose: Not Given Lactated Ringer's (Ringers, Lactated) 1,000 mls @ 100 mls/hr IV ASDIRECTED [facility] Last Admin: 08/26/19 18:09 Dose: 100 mls/hr Dextrose/Water (Dextrose 10% In Water) 1,000 mls @ 25 mls/hr IV ASDIRECTED [facility] Dextrose/Water (Dextrose 10% In Water) 1,000 mls @ 25 mls/hr IV ASDIRECTED [facility] Last Admin: 08/27/19 05:52 Dose: 25 mls/hr Dextrose/Water (Dextrose 10% In Water) Confirm Administered Dose 1,000 mls @ as directed .ROUTE .STK-MED ONE Stop: 08/27/19 05:47 Last Admin: 08/27/19 05:56 Dose: Not Given Potassium Cl/Dextrose/Lact Ringer's (D5 Lr With 20 Meq Kcl) 1,000 mls @ 100 mls /hr IV ASDIRECTED [facility] Last Infusion: 08/28/19 11:57 Dose: 50 mls/hr Potassium Chloride 10 meq/ (Premix) 100 mls @ 100 mls/hr IV Q1H [facility] Stop: 08/27/19 12:59 Last Admin: 08/27/19 12:55 Dose: 100 mls/hr Potassium Chloride 10 meq/ (Premix) 100 mls @ 100 mls/hr IV Q1H [facility] Stop: 08/28/19 15:29 Last Admin: 08/28/19 15:11 Dose: 100 mls/hr Potassium Cl/Dextrose/Lact Ringer's (D5 Lr With 20 Meq Kcl) 1,000 mls @ 50 mls/ hr IV ASDIRECTED [facility] Last Admin: 08/30/19 18:01 Dose: 50 mls/hr Potassium Chloride 10 meq/ (Premix) 100 mls @ 100 mls/hr IV Q1H [facility] Stop: 08/29/19 17:59 Last Admin: 08/29/19 17:47 Dose: 100 mls/hr Magnesium Sulfate 2 gm/ Premix 50 mls @ 25 mls/hr IV 1200,2100 [facility] Stop: 08/29/19 22:59 Last Admin: 08/29/19 20:25 Dose: 25 mls/hr Sodium Chloride (Normal Saline) 1,000 mls @ 999 mls/hr IRR ONETIME ONE Stop: 08/29/19 13:07 Last Admin: 08/29/19 12:52 Dose: 999 mls/hr Sodium Chloride (Normal Saline) 100 mls @ 60 mls/hr IV ASDIRECTED [facility] Stop: 08/30/19 13:00 Potassium Chloride 10 meq/ (Premix) 100 mls @ 100 mls/hr IV Q1H [facility] Stop: 08/31/19 11:29 Last Admin: 08/31/19 11:42 Dose: 100 mls/hr Levothyroxine Sodium (Synthroid) 75 mcg PO DAILY [facility] Morphine Sulfate (Morphine) 1 mg IVPUSH ONETIME ONE Stop: 08/29/19 07:47 Last Admin: 08/29/19 08:09 Dose: 1 mg Non-Formulary Medication (Losartan) 50 mg PO BEDTIME [facility] Norepinephrine Bitartrate (Levophed) Confirm Administered Dose 4 mg .ROUTE .STK- MED ONE Stop: 08/24/19 16:39 Last Admin: 08/24/19 16:47 Dose: Not Given Ondansetron HCl (Zofran) 4 mg IVPUSH ONETIME ONE Stop: 08/24/19 07:27 Last Admin: 08/24/19 08:13 Dose: 4 mg Potassium Chloride (Klor-Con M20) 20 meq PO BID [facility] Last Admin: 09/01/19 08:51 Dose: 20 meq Potassium Chloride (Potassium Chloride Solution) 40 meq NGTUBE ONETIME ONE Stop: 09/01/19 12:01 Last Admin: 09/01/19 11:39 Dose: 40 meq Sodium Chloride (Saline Flush) 10 ml FLUSH ONETIME ONE Stop: 08/30/19 09:01 Last Admin: 08/30/19 09:09 Dose: 10 ml Succinylcholine Chloride (Quelicin) 200 mg .ROUTE .STK-MED ONE Stop: 08/24/19 15:01 Vecuronium Alfred (Vecuronium) Confirm Administered Dose 10 mg .ROUTE .STK-MED ONE Stop: 08/24/19 20:13 - Exam Wound/Incisions: Healing Well, Drainage (packed) Quality Assessment: Supplemental Oxygen General: Lethargic Lungs: Rales (bibasilar) Cardiovascular: Regular Rate, Regular Rhythm, No Murmurs GI/Abdominal Exam: Soft, Tender (appropriately), Other (wound is clean with clean gauze) Sepsis Event Note - Evaluation Sepsis Screening Result: No Definite Risk - Focused Exam Vital Signs: Vital Signs Temp Resp BP BP Pulse Ox 09/01/19 11:47 97.6 F 20 146/79 H 93 L 09/01/19 08:51 133/72 09/01/19 08:00 98 F 19 133/72 95 09/01/19 04:00 97.5 F 18 147/69 H 96 Date Exam was Performed: 09/01/19 Time Exam was Performed: 14:34 - Problem List Review Problem List Initiated/Reviewed/Updated: No - My Orders Last 24 Hours: Active Orders 24 hr Category Date Time Status CBC WITH AUTO DIFF [HEME] AM Lab 09/02/19 05:11 Ordered CBC WITH AUTO DIFF [HEME] AM Lab 09/03/19 05:11 Ordered CBC WITH AUTO DIFF [HEME] AM Lab 09/04/19 05:11 Ordered CMP [COMPREHENSIVE METABOLIC PN,CMP] [CHEM] AM Lab 09/02/19 05:11 Ordered CMP [COMPREHENSIVE METABOLIC PN,CMP] [CHEM] AM Lab 09/03/19 05:11 Ordered CMP [COMPREHENSIVE METABOLIC PN,CMP] [CHEM] AM Lab 09/04/19 05:11 Ordered MAGNESIUM [CHEM] AM Lab 09/02/19 05:11 Ordered MAGNESIUM [CHEM] AM Lab 09/03/19 05:11 Ordered MAGNESIUM [CHEM] AM Lab 09/04/19 05:11 Ordered Potassium Chloride [Potassium Chloride Solution] Med 09/01/19 21:00 Active 20 meq NGTUBE BID Rectal Tube Insertion [OM.PC] Routine Oth 09/01/19 10:59 Ordered Medication Orders Amlodipine Besylate (Norvasc) 10 mg PO DAILY [facility] Last Admin: 09/01/19 08:51 Dose: 10 mg Admin: 08/31/19 09:50 Dose: 10 mg Admin: 08/30/19 09:10 Dose: 10 mg Admin: 08/29/19 12:51 Dose: 10 mg Chlorthalidone (Chlorthalidone) 25 mg PO DAILY [facility] Last Admin: 09/01/19 08:50 Dose: 25 mg Admin: 08/31/19 09:50 Dose: 25 mg Admin: 08/30/19 10:58 Dose: 25 mg Hydralazine HCl (Apresoline) 10 mg IVPUSH Q2H PRN PRN Reason: Systolic >180 / Diastolic >100 Last Admin: 08/31/19 01:25 Dose: 10 mg Admin: 08/30/19 21:48 Dose: 10 mg Admin: 08/30/19 18:01 Dose: 10 mg Piperacillin Sod/Tazobactam (Sod 4.5 gm/ Sodium Chloride) 100 mls @ 25 mls/hr IV Q8H [facility] Last Admin: 09/01/19 05:47 Dose: 25 mls/hr Infusion: 09/01/19 01:24 Dose: 25 mls/hr Admin: 08/31/19 21:24 Dose: 25 mls/hr Infusion: 08/31/19 17:37 Dose: 25 mls/hr Admin: 08/31/19 13:37 Dose: 25 mls/hr Infusion: 08/31/19 10:06 Dose: 25 mls/hr Admin: 08/31/19 06:06 Dose: 25 mls/hr Infusion: 08/31/19 01:52 Dose: 25 mls/hr Admin: 08/30/19 21:52 Dose: 25 mls/hr Infusion: 08/30/19 17:18 Dose: 25 mls/hr Admin: 08/30/19 13:18 Dose: 25 mls/hr Infusion: 08/30/19 09:17 Dose: 25 mls/hr Admin: 08/30/19 05:17 Dose: 25 mls/hr Infusion: 08/30/19 02:55 Dose: 25 mls/hr Admin: 08/29/19 22:55 Dose: 25 mls/hr Infusion: 08/29/19 17:24 Dose: 25 mls/hr Admin: 08/29/19 13:24 Dose: 25 mls/hr Argatroban 250 mg/ Sodium (Chloride) 252.5 mls @ 9.69 mls/hr IV TITRATE [facility]; Protocol Last Admin: 09/01/19 02:30 Dose: 1 mcg/kg/min, 4.84 mls/hr Titration: 09/01/19 02:30 Dose: 1 mcg/kg/min, 4.84 mls/hr Admin: 08/31/19 02:52 Dose: 1 mcg/kg/min, 4.84 mls/hr Titration: 08/31/19 02:52 Dose: 1 mcg/kg/min, 4.84 mls/hr Titration: 08/30/19 21:04 Dose: 1 mcg/kg/min, 4.84 mls/hr Titration: 08/30/19 19:05 Dose: 0 mcg/kg/min, 0 mls/hr Admin: 08/30/19 15:25 Dose: 1 mcg/kg/min, 4.84 mls/hr Titration: 08/30/19 15:25 Dose: 1 mcg/kg/min, 4.84 mls/hr Admin: 08/30/19 10:44 Dose: 1 mcg/kg/min, 4.84 mls/hr Titration: 08/30/19 10:44 Dose: 2 mcg/kg/min, 9.69 mls/hr Admin: 08/29/19 14:21 Dose: 2 mcg/kg/min, 9.69 mls/hr Morphine Sulfate (Morphine) 1 mg IVPUSH Q4H PRN PRN Reason: Pain Last Admin: 09/01/19 02:33 Dose: 1 mg Admin: 08/31/19 21:26 Dose: 1 mg Admin: 08/31/19 14:27 Dose: 1 mg Admin: 08/31/19 00:05 Dose: 1 mg Admin: 08/30/19 05:17 Dose: 1 mg Admin: 08/29/19 20:28 Dose: 1 mg Admin: 08/29/19 17:44 Dose: 1 mg Admin: 08/29/19 12:50 Dose: 1 mg Pantoprazole Sodium (Protonix Iv) 40 mg IVPUSH DAILY [facility] Last Admin: 09/01/19 08:50 Dose: 40 mg Admin: 08/31/19 09:49 Dose: 40 mg Admin: 08/30/19 09:06 Dose: 40 mg Admin: 08/29/19 08:08 Dose: 40 mg Admin: 08/28/19 08:06 Dose: 40 mg Admin: 08/27/19 08:34 Dose: 40 mg Admin: 08/26/19 08:40 Dose: 40 mg Admin: 08/25/19 08:19 Dose: 40 mg Potassium Chloride (Potassium Chloride Solution) 20 meq NGTUBE BID [facility] Sodium Chloride (Saline Flush) 10 ml FLUSH ASDIRECTED PRN PRN Reason: Keep Vein Open Last Admin: 08/24/19 08:14 Dose: 10 ml - Assessment Assessment (Free Text/Narrative):: Tolerating tube feeds. Has loose stools. wound appears well. - Plan Plan (Free Text/Narrative):: - Abd wound - continue BID dressing changes - Nutrition: continue Tube feeds. We will add fiber tomorrow to help thicken the bowel movements. 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 Progressing well. We need to evaluate the patient for source of bowel necrosis. Will do CTA and Echocardiogram to rule out emboli. If no concern emboli, we can stop systemic anticoagulation and do antiplatelet therapy. - Continue PT/OT as tolerated - Will likely need LTACH for her care needs
[2019-09-01] MEDS ORDERED: Dextrose 5% in Water 250 ML ONE (15:53)
[2019-09-01] MEDS ORDERED: Norepinephrine 4 MG/4 ML SDV ONE (15:53)
[2019-09-01] MEDS ORDERED: Norepinephrine 4 MG in Dextrose 5% in Water 246 ML IV SCH ×2 (16:00)
[2019-09-01] MEDS: Albuterol/Ipratropium 3.0-0.5 MG/3 ML Neb Soln NEB SCH ×2 (16:16→20:26)
--- NOTE | 2019-09-01 16:20 | PCM.PN ---
- General Info Date of Service: 09/01/19 Admission Dx/Problem (Free Text): Decreased urine output Norepinephrine drip Fentanyl and versed for sedation LR for fluid repletion Levaquin, vancomycin and Zosyn Subjective Update: Patient was doing better and up to late afternoon. At that point she developed acute shortness of breath with dropping pulse oximetry. Patient was placed on BiPAP and initial ABG demonstrated pH of 7.43, PCO2 of 32.2, PO2 of 49, HCO3 of 21.2. At that time CBC, CMP, APTT, proBNP, troponin, and CT of the chest, abdomen, and pelvis were performed. Of note the last several days of APTT were artificially low because of a lab error. Patient did have some more coherent episodes this afternoon prior to being in respiratory distress. She was able to communicate a bit with her family. She continues to be severely weak, not being able to move her arm and legs against gravity. - Review of Systems General: Reports: Weakness, Other - Patient Data Vitals - Most Recent: Last Vital Signs Temp 97.6 F 09/01/19 11:47 Pulse 83 09/01/19 01:15 Resp 20 09/01/19 11:47 BP 146/79 H 09/01/19 11:47 Pulse Ox 99 09/01/19 16:18 Weight - Most Recent: 189 lb 14.4 oz I&O - Last 24 Hours: Intake & Output 09/01/19 09/01/19 09/01/19 06:59 14:59 22:59 Intake Total 1571 100 Output Total 345 555 Balance 1226 -455 Imaging Impressions - Last 24 Hours: CT angiogram of the chest, abdomen, and pelvis. Impression 1. Bilateral pleural effusions with bibasilar atelectasis. 2. Aortic shows atherosclerotic change without dissection or aneurysm. No pulmonary embolism seen. 3. Nasogastric tube and right central line is noted which appears normal in position. 4. Occluded celiac axis. Atherosclerotic change within the superior mesenteric artery, inferior mesenteric jarred, and both renal arteries which show no definite focal hemodynamic significant stenosis. 5. Small amount of ascites. CT angiogram of the pelvis no significant stenosis. Lab Results Last 24 Hours: Laboratory Results - last 24 hr 08/29/19 09/01/19 09/01/19 Range/Units 18:00 05:13 05:13 WBC (3.98-10.04) K/mm3 RBC (3.98-5.22) M/mm3 Hgb (11.2-15.7) gm/dl Hct (34.1-44.9) % MCV (79.4-94.8) fl MCH (25.6-32.2) pg MCHC (32.2-35.5) g/dl RDW Std Deviation (36.4-46.3) fL Plt Count (182-369) K/mm3 MPV (9.4-12.3) fl APTT 133 H* D 90 H D (22-31) SECONDS Puncture Site ABG pH (7.35-7.45) ABG pCO2 (35.0-45.0) mmHg ABG pO2 (80.0-100.0) mmHg ABG HCO3 (22.0-26.0) meq/L ABG O2 Saturation (96.0-97.0) % ABG Base Excess (-2-2.0) Kerwin Test A-a Gradient mmHg O2 Delivery Device FiO2 (21.00-100.00) % PEEP cmH20 Pressure Support cmH2O Sodium 147 H (136-145) mEq/L Potassium 3.1 L (3.5-5.1) mEq/L Chloride 113 H (98-107) mEq/L Carbon Dioxide 23 (21-32) mEq/L Anion Gap 14.1 (5-15) BUN 27 H (7-18) mg/dL Creatinine 1.2 H (0.55-1.02) mg/dL Est Cr Clr Drug Dosing 28.34 mL/min Estimated GFR (MDRD) 43 (>60) mL/min BUN/Creatinine Ratio 22.5 H (14-18) Glucose 131 H (83-115) mg/dL Calcium 8.0 L (8.5-10.1) mg/dL Phosphorus 2.7 (2.6-4.7) mg/dL Magnesium 2.1 (1.8-2.4) mg/dl 09/01/19 09/01/19 Range/Units 15:45 15:47 WBC 19.98 H (3.98-10.04) K/mm3 RBC 3.86 L (3.98-5.22) M/mm3 Hgb 10.5 L (11.2-15.7) gm/dl Hct 31.5 L (34.1-44.9) % MCV 81.6 (79.4-94.8) fl MCH 27.2 (25.6-32.2) pg MCHC 33.3 (32.2-35.5) g/dl RDW Std Deviation 70.3 H (36.4-46.3) fL Plt Count 168 L D (182-369) K/mm3 MPV 11.6 (9.4-12.3) fl APTT (22-31) SECONDS Puncture Site Rt radial ABG pH 7.43 (7.35-7.45) ABG pCO2 32.2 L (35.0-45.0) mmHg ABG pO2 49.0 L (80.0-100.0) mmHg ABG HCO3 21.2 L (22.0-26.0) meq/L ABG O2 Saturation 80.4 L (96.0-97.0) % ABG Base Excess -2.0 (-2-2.0) Kerwin Test Positive A-a Gradient 269 mmHg O2 Delivery Device Bipap FiO2 0.00 L (21.00-100.00) % PEEP 7.0 cmH20 Pressure Support 14.0 cmH2O Sodium (136-145) mEq/L Potassium (3.5-5.1) mEq/L Chloride (98-107) mEq/L Carbon Dioxide (21-32) mEq/L Anion Gap (5-15) BUN (7-18) mg/dL Creatinine (0.55-1.02) mg/dL Est Cr Clr Drug Dosing mL/min Estimated GFR (MDRD) (>60) mL/min BUN/Creatinine Ratio (14-18) Glucose (83-115) mg/dL Calcium (8.5-10.1) mg/dL Phosphorus (2.6-4.7) mg/dL Magnesium (1.8-2.4) mg/dl Gerardo Results Last 24 Hours: Microbiology 08/29/19 12:25 Catheter Tip Culture - Final Triple Lumen NO GROWTH AFTER 2 DAYS 08/24/19 12:16 Aerobic Blood Culture - Final Blood - Venous NO GROWTH AFTER 7 DAYS Anaerobic Blood Culture - Final NO GROWTH AFTER 7 DAYS 08/24/19 12:24 Aerobic Blood Culture - Final Blood - Venous - Lab Draw NO GROWTH AFTER 7 DAYS Anaerobic Blood Culture - Final NO GROWTH AFTER 7 DAYS 08/28/19 11:27 Wound Culture - Final Abdominal Fluid - Drainage Rosy Albicans Med Orders - Current: Current Medications Albuterol/Ipratropium (Duoneb 3.0-0.5 Mg/3 Ml) 3 ml NEB Q6HRRT [facility] Last Admin: 09/01/19 16:16 Dose: 3 ml Amlodipine Besylate (Norvasc) 10 mg PO DAILY [facility] Last Admin: 09/01/19 08:51 Dose: 10 mg Chlorthalidone (Chlorthalidone) 25 mg PO DAILY [facility] Last Admin: 09/01/19 08:50 Dose: 25 mg Hydralazine HCl (Apresoline) 10 mg IVPUSH Q2H PRN PRN Reason: Systolic >180 / Diastolic >100 Last Admin: 08/31/19 01:25 Dose: 10 mg Piperacillin Sod/Tazobactam (Sod 4.5 gm/ Sodium Chloride) 100 mls @ 25 mls/hr IV Q8H [facility] Last Admin: 09/01/19 14:37 Dose: 25 mls/hr Argatroban 250 mg/ Sodium (Chloride) 252.5 mls @ 9.69 mls/hr IV TITRATE [facility]; Protocol Last Admin: 09/01/19 02:30 Dose: 1 mcg/kg/min, 4.84 mls/hr Norepinephrine Bitartrate 4 mg (/ Dextrose/Water) 250 mls @ 7.5 mls/hr IV TITRATE [facility]; Protocol Morphine Sulfate (Morphine) 1 mg IVPUSH Q4H PRN PRN Reason: Pain Last Admin: 09/01/19 02:33 Dose: 1 mg Pantoprazole Sodium (Protonix Iv) 40 mg IVPUSH DAILY [facility] Last Admin: 09/01/19 08:50 Dose: 40 mg Potassium Chloride (Potassium Chloride Solution) 20 meq NGTUBE BID [facility] Sodium Chloride (Saline Flush) 10 ml FLUSH ASDIRECTED PRN PRN Reason: Keep Vein Open Last Admin: 08/24/19 08:14 Dose: 10 ml Discontinued Medications Atropine Sulfate (Atropine 0.1 Mg/Ml) 0.5 mg IVPUSH ONETIME ONE Stop: 08/27/19 07:57 Last Admin: 08/27/19 08:09 Dose: 0.5 mg Bumetanide (Bumex) 1 mg IVPUSH ONETIME ONE Stop: 08/25/19 22:49 Last Admin: 08/26/19 00:07 Dose: 1 mg Bumetanide (Bumex) 1 mg IVPUSH BID [facility] Last Admin: 08/28/19 08:06 Dose: 1 mg Dextrose/Water (Dextrose 50% In Water) 25 ml IVPUSH NOW STA Stop: 08/27/19 05:41 Last Admin: 08/27/19 05:47 Dose: 25 ml Enoxaparin Sodium (Lovenox) 70 mg SUBCUT Q24H [facility] Last Admin: 08/28/19 11:48 Dose: 70 mg Ephedrine Sulfate (Ephedrine In Ns) Confirm Administered Dose 25 mg .ROUTE .STK- MED ONE Stop: 08/24/19 21:32 Etomidate (Amidate) 40 mg IVPUSH .STK-MED ONE Stop: 08/24/19 15:01 Fentanyl (Sublimaze) Confirm Administered Dose 250 mcg .ROUTE .STK-MED ONE Stop: 08/24/19 18:10 Heparin Sodium (Porcine) (Heparin Sodium) 5,000 units IVPUSH .BOLUS ONE Stop: 08/25/19 13:27 Last Admin: 08/25/19 14:11 Dose: 5,000 units Heparin Sodium (Porcine) (Heparin Lock Flush 100 Units/Ml) Confirm Administered Dose 500 units .ROUTE .STK-MED ONE Stop: 08/25/19 22:38 Last Admin: 08/25/19 23:02 Dose: 500 units Hydralazine HCl (Apresoline) 10 mg IVPUSH ONETIME ONE Stop: 08/29/19 07:47 Last Admin: 08/29/19 08:08 Dose: 10 mg Hydralazine HCl (Apresoline) 10 mg IVPUSH ONETIME ONE Stop: 08/30/19 11:55 Last Admin: 08/30/19 12:03 Dose: 10 mg Hydrocortisone Sodium Succinate (Solu-Cortef) 50 mg IV Q8H [facility] Last Admin: 08/29/19 12:21 Dose: 50 mg Hydromorphone HCl (Dilaudid) 0.5 mg IVPUSH ONETIME ONE Stop: 08/24/19 07:28 Last Admin: 08/24/19 08:15 Dose: 0.5 mg Sodium Chloride (Normal Saline) 1,000 mls @ 1,000 mls/hr IV .BOLUS STA Stop: 08/24/19 08:25 Last Admin: 08/24/19 08:13 Dose: 1,000 mls/hr Cefepime HCl 2 gm/ Premix 50 mls @ 100 mls/hr IV ONETIME ONE Stop: 08/24/19 13:18 Last Admin: 08/24/19 13:19 Dose: 100 mls/hr Lactated Ringer's (Ringers, Lactated) 1,100 mls @ 1,000 mls/hr IV .BOLUS ONE Stop: 08/24/19 14:13 Last Admin: 08/24/19 13:40 Dose: 1,000 mls/hr Levofloxacin/Dextrose 750 mg/ (Premix) 150 mls @ 100 mls/hr IV ONETIME ONE Stop: 08/24/19 15:07 Last Admin: 08/24/19 16:03 Dose: 100 mls/hr Piperacillin Sod/Tazobactam (Sod 4.5 gm/ Sodium Chloride) 100 mls @ 25 mls/hr IV Q8H [facility] Last Admin: 08/26/19 05:13 Dose: 25 mls/hr Vancomycin HCl 1 gm/ Sodium (Chloride) 250 mls @ 250 mls/hr IV ONETIME ONE Stop: 08/24/19 14:37 Last Admin: 08/24/19 16:06 Dose: 250 mls/hr Fentanyl 2,500 mcg/ Sodium (Chloride) 250 mls @ 7.27 mls/hr IV TITRATE [facility]; Protocol Last Titration: 08/28/19 04:23 Dose: 0 mcg/kg/hr, 0 mls/hr Midazolam HCl 50 mg/ Sodium (Chloride) 50 mls @ 0.5 mls/hr IV TITRATE [facility]; Protocol Stop: 08/25/19 15:29 Last Titration: 08/25/19 11:57 Dose: 2 mg/hr, 2 mls/hr Lactated Ringer's (Ringers, Lactated) 1,000 mls @ 125 mls/hr IV ASDIRECTED [facility] Last Admin: 08/25/19 01:00 Dose: 125 mls/hr Norepinephrine Bitartrate 4 mg (/ Dextrose/Water) 250 mls @ 7.5 mls/hr IV TITRATE [facility]; Protocol Last Titration: 08/27/19 07:25 Dose: 0 mcg/min, 0 mls/hr Sodium Chloride (Normal Saline) Confirm Administered Dose 1,000 mls @ as directed .ROUTE .[facility]-MED ONE Stop: 08/24/19 17:09 Last Admin: 08/24/19 17:16 Dose: 1 mls/hr Lactated Ringer's (Ringers, Lactated) Confirm Administered Dose 1,000 mls @ as directed .ROUTE .[facility]-MED ONE Stop: 08/24/19 18:34 Lactated Ringer's (Ringers, Lactated) Confirm Administered Dose 1,000 mls @ as directed .ROUTE .[facility]-MED ONE Stop: 08/24/19 19:10 Lactated Ringer's (Ringers, Lactated) Confirm Administered Dose 1,000 mls @ as directed .ROUTE .[facility] ONE Stop: 08/24/19 19:46 Lactated Ringer's (Ringers, Lactated) Confirm Administered Dose 1,000 mls @ as directed .ROUTE .[facility] ONE Stop: 08/24/19 20:40 Lactated Ringer's (Ringers, Lactated) 1,000 mls @ 250 mls/hr IV ASDIRECTED [facility] Last Infusion: 08/26/19 12:28 Dose: Infused Lactated Ringer's (Ringers, Lactated) 1,000 mls @ 999 mls/hr IV .BOLUS ONE Stop: 08/25/19 09:03 Last Admin: 08/25/19 08:10 Dose: 999 mls/hr Heparin Sodium/Dextrose (Heparin 25,000 Units In D5w 500 Ml) 25,000 units in 500 mls @ 26 mls/hr IV TITRATE [facility]; Protocol Last Admin: 08/26/19 08:24 Dose: 22 units/kg/hr, 32.013 mls/hr Dopamine HCl/Dextrose (Dopamine In D5w 400 Mg/250 Ml) 400 mg in 250 mls @ 5.457 mls/hr IV TITRATE [facility]; Protocol Last Titration: 08/26/19 15:20 Dose: 0 mcg/kg/min, 0 mls/hr Lactated Ringer's (Ringers, Lactated) 2,000 mls @ 999 mls/hr IV .BOLUS ONE Stop: 08/25/19 17:52 Last Admin: 08/25/19 16:11 Dose: 999 mls/hr Lactated Ringer's (Ringers, Lactated) 1,000 mls @ 999 mls/hr IV .BOLUS ONE Stop: 08/25/19 17:13 Last Admin: 08/25/19 16:48 Dose: 999 mls/hr Midazolam HCl 50 mg/ Sodium (Chloride) 50 mls @ 0.5 mls/hr IV TITRATE [facility]; Protocol Last Titration: 08/27/19 07:55 Dose: 0 mg/hr, 0 mls/hr Albumin Human (Flexbumin 25%) 25 gm in 100 mls @ 100 mls/hr IV Q1H [facility] Stop: 08/26/19 00:46 Last Admin: 08/26/19 00:07 Dose: 100 mls/hr Albumin Human (Flexbumin 25%) 12.5 gm in 50 mls @ 100 mls/hr IV Q8H [facility] Stop: 08/29/19 07:01 Last Admin: 08/29/19 05:59 Dose: 100 mls/hr Lactated Ringer's (Ringers, Lactated) 1,000 mls @ 200 mls/hr IV ASDIRECTED [facility] Last Infusion: 08/26/19 12:30 Dose: 100 mls/hr Magnesium Sulfate 4 gm/ Premix 100 mls @ 25 mls/hr IV ONETIME ONE Stop: 08/26/19 07:31 Last Admin: 08/26/19 06:48 Dose: 25 mls/hr Piperacillin Sod/Tazobactam (Sod 4.5 gm/ Sodium Chloride) 100 mls @ 25 mls/hr IV Q12H [facility] Stop: 08/29/19 10:00 Last Admin: 08/29/19 07:09 Dose: Not Given Lactated Ringer's (Ringers, Lactated) 1,000 mls @ 100 mls/hr IV ASDIRECTED [facility] Last Admin: 08/26/19 18:09 Dose: 100 mls/hr Dextrose/Water (Dextrose 10% In Water) 1,000 mls @ 25 mls/hr IV ASDIRECTED [facility] Dextrose/Water (Dextrose 10% In Water) 1,000 mls @ 25 mls/hr IV ASDIRECTED [facility] Last Admin: 08/27/19 05:52 Dose: 25 mls/hr Dextrose/Water (Dextrose 10% In Water) Confirm Administered Dose 1,000 mls @ as directed .ROUTE .STK-MED ONE Stop: 08/27/19 05:47 Last Admin: 08/27/19 05:56 Dose: Not Given Potassium Cl/Dextrose/Lact Ringer's (D5 Lr With 20 Meq Kcl) 1,000 mls @ 100 mls /hr IV ASDIRECTED [facility] Last Infusion: 08/28/19 11:57 Dose: 50 mls/hr Potassium Chloride 10 meq/ (Premix) 100 mls @ 100 mls/hr IV Q1H [facility] Stop: 08/27/19 12:59 Last Admin: 08/27/19 12:55 Dose: 100 mls/hr Potassium Chloride 10 meq/ (Premix) 100 mls @ 100 mls/hr IV Q1H [facility] Stop: 08/28/19 15:29 Last Admin: 08/28/19 15:11 Dose: 100 mls/hr Potassium Cl/Dextrose/Lact Ringer's (D5 Lr With 20 Meq Kcl) 1,000 mls @ 50 mls/ hr IV ASDIRECTED [facility] Last Admin: 08/30/19 18:01 Dose: 50 mls/hr Potassium Chloride 10 meq/ (Premix) 100 mls @ 100 mls/hr IV Q1H [facility] Stop: 08/29/19 17:59 Last Admin: 08/29/19 17:47 Dose: 100 mls/hr Magnesium Sulfate 2 gm/ Premix 50 mls @ 25 mls/hr IV 1200,2100 [facility] Stop: 08/29/19 22:59 Last Admin: 08/29/19 20:25 Dose: 25 mls/hr Sodium Chloride (Normal Saline) 1,000 mls @ 999 mls/hr IRR ONETIME ONE Stop: 08/29/19 13:07 Last Admin: 08/29/19 12:52 Dose: 999 mls/hr Sodium Chloride (Normal Saline) 100 mls @ 60 mls/hr IV ASDIRECTED [facility] Stop: 08/30/19 13:00 Potassium Chloride 10 meq/ (Premix) 100 mls @ 100 mls/hr IV Q1H [facility] Stop: 08/31/19 11:29 Last Admin: 08/31/19 11:42 Dose: 100 mls/hr Dextrose/Water (Dextrose 5% In Water) Confirm Administered Dose 250 mls @ as directed .ROUTE .STK-MED ONE Stop: 09/01/19 15:54 Levothyroxine Sodium (Synthroid) 75 mcg PO DAILY [facility] Morphine Sulfate (Morphine) 1 mg IVPUSH ONETIME ONE Stop: 08/29/19 07:47 Last Admin: 08/29/19 08:09 Dose: 1 mg Non-Formulary Medication (Losartan) 50 mg PO BEDTIME [facility] Norepinephrine Bitartrate (Levophed) Confirm Administered Dose 4 mg .ROUTE .STK- MED ONE Stop: 08/24/19 16:39 Last Admin: 08/24/19 16:47 Dose: Not Given Norepinephrine Bitartrate (Levophed) Confirm Administered Dose 4 mg .ROUTE .STK- MED ONE Stop: 09/01/19 15:54 Ondansetron HCl (Zofran) 4 mg IVPUSH ONETIME ONE Stop: 08/24/19 07:27 Last Admin: 08/24/19 08:13 Dose: 4 mg Potassium Chloride (Klor-Con M20) 20 meq PO BID [facility] Last Admin: 09/01/19 08:51 Dose: 20 meq Potassium Chloride (Potassium Chloride Solution) 40 meq NGTUBE ONETIME ONE Stop: 09/01/19 12:01 Last Admin: 09/01/19 11:39 Dose: 40 meq Sodium Chloride (Saline Flush) 10 ml FLUSH ONETIME ONE Stop: 08/30/19 09:01 Last Admin: 08/30/19 09:09 Dose: 10 ml Succinylcholine Chloride (Quelicin) 200 mg .ROUTE .STK-MED ONE Stop: 08/24/19 15:01 Vecuronium [place] (Vecuronium) Confirm Administered Dose 10 mg .ROUTE .STK-MED ONE Stop: 08/24/19 20:13 - Exam Quality Assessment: Supplemental Oxygen General: Obtunded HEENT: Pupils Equal Neck: Supple Lungs: Rales. No: Normal Respiratory Effort (Respiratory distress with increased respiratory rate and use of sensory muscles) Cardiovascular: Regular Rate, Regular Rhythm GI/Abdominal Exam: Tender (Diffusely tender), Abnormal Bowel Sounds (Decreased) , Other (Large wound dehiscence just under the umbilicus) Extremities: No Pedal Edema (Secondary to SCDs), Other (Hands and arms are edematous) Wound/Incisions: Healing Well EKG INTERPRETATION EKG Date: 09/01/19 Rhythm: NSR Ambler: Normal P-Wave: Present QRS: Normal ST-T: Depressed (Lateral leads) QT: Normal HI/PQ Interval: Q waves in lead III, aVF. EKG Interpretation Comments: No change from August 24, 2019. Sepsis Event Note - Evaluation Sepsis Screening Result: No Definite Risk - Focused Exam Vital Signs: Vital Signs Temp Resp BP BP Pulse Ox Pulse Ox 09/01/19 16:18 99 09/01/19 11:47 97.6 F 20 146/79 H 93 L 09/01/19 08:51 133/72 09/01/19 08:00 98 F 19 133/72 95 Date Exam was Performed: 09/01/19 Time Exam was Performed: 20:11 - Problem List Review Problem List Initiated/Reviewed/Updated: Yes - My Orders Last 24 Hours: My Active Orders 09/01/19 10:59 Rectal Tube Insertion [OM.PC] Routine 09/01/19 15:00 Albuterol/Ipratropium [DuoNeb 3.0-0.5 MG/3 ML] 3 ml NEB Q6HRRT 09/01/19 15:35 Chest 1V Frontal [CR] Stat 09/01/19 15:45 BASIC METABOLIC PANEL,BMP [CHEM] Routine LACTATE SEPSIS W/ REFLEX [CHEM] Stat PRO B-TYPE NATRIUR PEPT,BNPPRO [CHEM] Stat TROPONIN I [CHEM] Stat aPTT [PTT,PARTIAL THROMBOPLSTIN TIME] [COAG] Routine 09/01/19 16:00 Norepinephrine [Levophed] 4 mg Dextrose 5% in Water 246 ml IV TITRATE 09/01/19 16:11 RT Aerosol Therapy [RC] ASDIRECTED 09/01/19 16:18 EKG Documentation Completion [RC] ASDIRECTED EKG 12 Lead [EK] Routine 09/02/19 Echo Comp wo Cont [US] Routine 09/02/19 05:11 CBC WITH AUTO DIFF [HEME] AM CMP [COMPREHENSIVE METABOLIC PN,CMP] [CHEM] AM MAGNESIUM [CHEM] AM 09/02/19 07:00 Consult to Speech Language Pathology [PRECISION OPTICS TECHNICIAN Evaluation and Treatment] [CONS] Routine 09/02/19 08:00 Ang Abdomen [CT] Routine Ang Chest [CT] Routine CTA Pelvis W & W/O Contrast [Ang Pelvis] [CT] Routine 09/03/19 05:11 CBC WITH AUTO DIFF [HEME] AM CMP [COMPREHENSIVE METABOLIC PN,CMP] [CHEM] AM MAGNESIUM [CHEM] AM 09/04/19 05:11 CBC WITH AUTO DIFF [HEME] AM CMP [COMPREHENSIVE METABOLIC PN,CMP] [CHEM] AM MAGNESIUM [CHEM] AM - Plan Plan:: Acute respiratory failure Patient has significant worsening of respiratory status requiring BiPAP. It is unknown if she aspirated, but no witnessed apnea or coughing. Patient is severely weak and may not be able to cough. White count increased to 20,000. Lactic acid was normal. CT did not show specific area of infiltrate but did show bilateral pleural effusions with bibasilar atelectasis. Worsening pulmonary status is likely secondary to pulmonary edema. proBNP over 26,000 increasing white count could be secondary to stress. Plan: Add linezolid for gram-positive coverage. Continue Zosyn Lasix 60 mg IV now and in 7 hours. Likely will need continued diuretics tomorrow. Blood cultures Urine cultures Change urine catheter C. difficile screen negative Hypernatremia Patient's sodium has continued to increase since being on tube feeds. With the change in status I am going to hold her tube feedings and restart fluids: D5W at 50 mL/h. Follow CMP daily. 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 Rucker Wound dehiscence Decreased oral intake and complaining of abdominal pain-->Abnormal CT --> surgery consulted--> R hemicolectomy and small bowel resection Central line, arterial line (removed 08/31/2019) and ETT placed (extubated 08/30) Started on norepinephrine with inadequate BP response--> started on dopamine which improved response (off both) CXR consistent with pulmonary edema PLAN - Continue Zosyn -Start on Nasalide - NG tube care - NG at intermittent suction - BiPAP - RT f/u - Suction by nursing -Hold feeds until improvement in hypernatremia -Dietary consult in the morning -Swallow eval when off BiPAP - Pack abdominal wound BID and as needed - Pain control with PRN morphine Heparin induced thrombocytopenia Admission platelets 341, platelets back up above 100,000 since stopping heparin T score 6, highly likely APTT has been erroneously reported lower than it actually is PLAN - Continue Argatroban, but decrease dose in half to 0.5 mcg/kg/min -Repeat APTT tomorrow morning - PF4 immunoassay ordered Acute kidney failure, improving Chronic kidney disease, stage 3 Lactic acid normal Urine output has increased significantly and improved with Lasix PLAN - Monitor urine output - Renally dosed medications - Avoid nephrotoxic agents as much as possible GERD (gastroesophageal reflux disease) No acute issues PLAN - Scheduled IV Pantoprazole Hypertension BP on admission stable Started dropping perioperatively requiring vasopressors Pressors off since 08/27 Worsening hypertension PLAN - Continue Amlodipine 10 - continue chlorthalidone - PRN Hydralazine Hypothyroidism No acute issues PLAN - Continue home meds once available Vascular dementia alf resident Requires 1 assist for bed mobility, transfer, dressing, personal hygiene and bathing 2 assist for ambulation Continent for bowel Hypothermia, resolved Septic shock, resolved Lactic acidosis, resolved Metabolic acidosis, resolved Respiratory alkalosis, resolved PROPHYLAXIS DVT- SCDs GI- pantoprazole CODE STATUS: FULL CODE I spoke with the family on 2 separate occasions, both the son and daughter, and they continue to want full treatment. DISPOSITION: Patient admitted to the ICU for vasopressors and mechanical ventilation. Taken to OR 14 with subsequent bowel resection. Patient's overall prognosis is very poor with SHAKTOOLIK score or 32, predicted mortality of 74%; family aware. Will repeat SBT today to evaluate extubation possibility.
--- NOTE | 2019-09-01 16:29 | CR ---
Chest: Portable view of the chest was obtained. Comparison: Prior chest x-ray of 08/30/19. Nasogastric tube remains. Tip is coiled within the stomach. Endotracheal tube has been removed from prior exam. Right jugular line remains unchanged in position with tip lying near the right atrial and superior vena cava junction. Possible left sided pleural effusion is noted. Atelectasis is noted within both lungs bases. Upper lungs are clear. Bony structures are grossly intact. Surgical clips are noted from prior cholecystectomy. Impression: 1. Endotracheal tube has been removed from prior exam. 2. Nasogastric tube and right jugular line remain stable in position. 3. Possible small left-sided pleural effusion with bibasilar atelectasis. 4. Other incidental findings. Diagnostic code #3 This report was dictated in [place] [employer] Time
[2019-09-01] MEDS ORDERED: Furosemide 40 MG/4 ML VIAL IVPUSH ONE (16:58)
[2019-09-01] MEDS: Dextrose 5% in Water 1,000 ML IV SCH (17:26)
[2019-09-01] MEDS ORDERED: Iopamidol 755 Mg/ML 100 ML Bottle IVPUSH ONE (17:30)
[2019-09-01] MEDS ORDERED: Sodium Chloride 0.9% 100 ML IV SCH (17:30)
[2019-09-01] MEDS: Sodium Chloride 0.9% 10 ML Syringe FLUSH PRN (18:31)
--- NOTE | 2019-09-01 18:57 | CT ---
CT chest Technique: Multiple axial sections through the chest were obtained. Study obtained as an angiogram protocol. Pulmonary arteries are also fairly well opacified. Reconstructed sagittal and coronal images were obtained. Comparison: Prior chest x-ray performed earlier on same day (3:43 PM). Findings: Small bilateral pleural effusions are seen causing compressive atelectasis within both lung bases. Aorta shows no aneurysm with atherosclerotic change. No dissection is seen. Visualized pulmonary arteries show no filling defects of pulmonary embolism. No nasogastric tube is seen which courses into the stomach. Right sided central line is seen with tip terminating within the superior vena cava. Mediastinum and hilar regions show no adenopathy. No axillary adenopathy is seen. Lungs otherwise are clear with no acute parenchymal change. Impression: 1. Bilateral pleural effusions with bibasilar atelectasis. 2. Aorta shows atherosclerotic change without dissection or aneurysm. No pulmonary embolism is seen. 3. Nasogastric tube and right central line is noted which appears normal in position. Diagnostic code #3 CT angiogram of abdomen Technique: Multiple axial sections through the abdomen were obtained. Study obtained during the arterial phase. Findings: Aorta shows diffuse atherosclerotic change. No aneurysm is seen. No dissection is noted. Comparison: No prior angiogram study of the abdomen is available. Atherosclerotic change is noted within the renal vessels and within the superior mesenteric artery. 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 Renal arteries show atherosclerotic change. Inferior mesenteric artery is patent with atherosclerotic change. Mild amount of ascites is seen. Liver shows no focal abnormality. Surgical clips are seen from previous cholecystectomy. Nasogastric tube is seen which is coiled within the stomach. Kidneys show symmetric contrast enhancement. Left kidney shows a cyst measuring 4.6 cm. No retroperitoneal adenopathy or mesenteric abnormalities are seen. Previous surgery is noted within the right colon. Appendix is not visualized with certainty. Bone window settings were reviewed which shows diffuse degenerative change within the spine. Moderate compression deformity is noted of L1 which is most likely old. No acute osseous finding is definitely appreciated. Impression: 1. Occluded celiac axis. Atherosclerotic change within the superior mesenteric artery, inferior mesenteric artery and both renal arteries which show no definite focal hemodynamic significant stenosis. 2. Small amount of ascites. 3. Other findings as noted above believed to be nonacute and incidental. Diagnostic code #3 CT angiogram of pelvis Technique: Multiple axial sections through the pelvis were obtained. Intravenous contrast was obtained in the arterial phase. Multiple reconstructed sagittal and coronal images were obtained. Comparison: No previous angiogram of pelvis is available. Findings: Skin and subcutaneous defect is noted within the right side of the anterior pelvis. Surgical skin poli are seen. Please correlate as to etiology of this defect. Distal aorta shows atherosclerotic change. Iliac vessels shows atherosclerotic change. No focal stenosis is seen within the internal or external iliac arteries or within the visualized common femoral arteries. Air is noted within the bladder presumably from recent instrumentation with Jay catheter noted. Impression: 1. Atherosclerotic change. No focal stenosis within the common iliac arteries, external or internal iliac arteries or visualized common femoral arteries. 2. Skin defect as noted above of uncertain etiology, please correlate. 2. Other findings believe to be incidental as noted above. Diagnostic code #2 This report was dictated in [place] [employer] MTDD
[2019-09-01] MEDS ORDERED: Linezolid 600 MG in Premix Bag 1 BAG IV SCH (19:30)
[2019-09-01] MEDS: Linezolid 600 MG in Premix Bag 1 BAG IV SCH (20:16)
[2019-09-01] MEDS: Potassium Chloride 10% 20 MEQ/15 ML Soln 15 ML UD Cup NGTUBE SCH (20:20)
[2019-09-02] MEDS ORDERED: Furosemide 100 MG/10 ML SDV IVPUSH ONE
[2019-09-02] MEDS: Morphine 2 MG/ML Syringe IVPUSH PRN ×2 (00:05→08:50)
[2019-09-02] MEDS: ARGATROBAN IV SCH (02:00)
[2019-09-02] MEDS: NORMAL SALINE IV SCH (02:00)
[2019-09-02] MEDS: Albuterol/Ipratropium 3.0-0.5 MG/3 ML Neb Soln NEB SCH ×4 (02:45→20:51)
[2019-09-02] MEDS: Piperacillin/Tazobactam 4.5 GM in Sodium Chloride 0.9% 100 ML IV SCH ×3 (05:38→21:59)
[2019-09-02] MEDS: Linezolid 600 MG in Premix Bag 1 BAG IV SCH ×2 (07:46→20:19)
[2019-09-02] MEDS: Pantoprazole 40 MG Vial IVPUSH SCH (08:00)
[2019-09-02] MEDS: Potassium Chloride 10% 20 MEQ/15 ML Soln 15 ML UD Cup NGTUBE SCH ×2 (08:02→20:21)
[2019-09-02] MEDS: amLODIPine 10 MG Tab PO SCH (08:08)
[2019-09-02] MEDS: Chlorthalidone 25 MG Tab PO SCH (08:09)
[2019-09-02] MEDS ORDERED: Furosemide 40 MG/4 ML VIAL IVPUSH ONE ×2 (10:48→18:18)
[2019-09-02] MEDS: Psyllium Husk Powder Sugar Free 3.4 GM Packet PO SCH ×2 (11:59→20:21)
[2019-09-02] MEDS: Dextrose 5% in Water 1,000 ML IV SCH ×2 (13:32→13:38)
--- NOTE | 2019-09-02 13:35 | PCM.SURGPN ---
- General Info Date of Service: 09/02/19 POD#: 9 Post-Op Diagnosis: PNA, UTI, Bowel necrosis Functional Status: Reports: Pain Controlled, Other (awake, interactive) - Review of Systems General: Reports: No Symptoms Gastrointestinal: Reports: Abdominal Pain - Patient Data Vitals - Most Recent: Last Vital Signs Temp 97.4 F 09/02/19 12:00 Pulse 70 09/02/19 02:45 Resp 12 09/02/19 12:00 BP 112/46 L 09/02/19 12:00 Pulse Ox 98 09/02/19 12:00 Weight - Most Recent: 80.649 kg I&O - Last 24 Hours: Intake & Output 09/01/19 09/02/19 09/02/19 22:59 06:59 14:59 Intake Total 420 1059 100 Output Total 1722 4960 965 Balance -1703 -3116 -285 Lab Results Last 24 Hrs: Laboratory Results - last 24 hr 08/29/19 08/30/19 08/30/19 Range/Units 18:00 07:24 13:04 WBC (3.98-10.04) K/mm3 RBC (3.98-5.22) M/mm3 Hgb (11.2-15.7) gm/dl Hct (34.1-44.9) % MCV (79.4-94.8) fl MCH (25.6-32.2) pg MCHC (32.2-35.5) g/dl RDW Std Deviation (36.4-46.3) fL Plt Count (182-369) K/mm3 MPV (9.4-12.3) fl Neut % (Auto) (34.0-71.1) % Lymph % (Auto) (19.3-51.7) % [place] % (Auto) (4.7-12.5) % Eos % (Auto) (0.7-5.8) Baso % (Auto) (0.1-1.2) % Neut # (Auto) (1.56-6.13) K/mm3 Lymph # (Auto) (1.18-3.74) K/mm3 [place] # (Auto) (0.24-0.36) K/mm3 Eos # (Auto) (0.04-0.36) K/mm3 Baso # (Auto) (0.01-0.08) K/mm3 Manual Slide Review APTT 133 H* D > 139 H* D 131 H* D (22-31) SECONDS Puncture Site ABG pH (7.35-7.45) ABG pCO2 (35.0-45.0) mmHg ABG pO2 (80.0-100.0) mmHg ABG HCO3 (22.0-26.0) meq/L ABG O2 Saturation (96.0-97.0) % ABG Base Excess (-2-2.0) [place] Test A-a Gradient mmHg O2 Delivery Device FiO2 (21.00-100.00) % PEEP cmH20 Pressure Support cmH2O Blood Gas Comments Sodium (136-145) mEq/L Potassium (3.5-5.1) mEq/L Chloride (98-107) mEq/L Carbon Dioxide (21-32) mEq/L Anion Gap (5-15) BUN (7-18) mg/dL Creatinine (0.55-1.02) mg/dL Est Cr Clr Drug Dosing mL/min Estimated GFR (MDRD) (>60) mL/min BUN/Creatinine Ratio (14-18) Glucose (83-115) mg/dL Lactic Acid (0.4-2.0) mmol/L Calcium (8.5-10.1) mg/dL Phosphorus (2.6-4.7) mg/dL Magnesium (1.8-2.4) mg/dl Total Bilirubin (0.2-1.0) mg/dL Direct Bilirubin (0.0-0.2) mg/dl Indirect Bilirubin AST (15-37) U/L ALT (14-59) U/L Alkaline Phosphatase (46-116) U/L Troponin I (0.00-0.056) ng/mL NT-Pro-B Natriuret Pep (0-450) pg/mL Total Protein (6.4-8.2) g/dl Albumin (3.4-5.0) g/dl Globulin gm/dL Albumin/Globulin Ratio (1-2) C.difficile 027-NAP1-B1 C. difficile Tox (PCR) 08/30/19 08/31/19 09/01/19 Range/Units 17:30 05:05 05:13 WBC (3.98-10.04) K/mm3 RBC (3.98-5.22) M/mm3 Hgb (11.2-15.7) gm/dl Hct (34.1-44.9) % MCV (79.4-94.8) fl MCH (25.6-32.2) pg MCHC (32.2-35.5) g/dl RDW Std Deviation (36.4-46.3) fL Plt Count (182-369) K/mm3 MPV (9.4-12.3) fl Neut % (Auto) (34.0-71.1) % Lymph % (Auto) (19.3-51.7) % [place] % (Auto) (4.7-12.5) % Eos % (Auto) (0.7-5.8) Baso % (Auto) (0.1-1.2) % Neut # (Auto) (1.56-6.13) K/mm3 Lymph # (Auto) (1.18-3.74) K/mm3 [place] # (Auto) (0.24-0.36) K/mm3 Eos # (Auto) (0.04-0.36) K/mm3 Baso # (Auto) (0.01-0.08) K/mm3 Manual Slide Review APTT 121 H* D 115 H* D 108 H* D (22-31) SECONDS Puncture Site ABG pH (7.35-7.45) ABG pCO2 (35.0-45.0) mmHg ABG pO2 (80.0-100.0) mmHg ABG HCO3 (22.0-26.0) meq/L ABG O2 Saturation (96.0-97.0) % ABG Base Excess (-2-2.0) Kerwin Test A-a Gradient mmHg O2 Delivery Device FiO2 (21.00-100.00) % PEEP cmH20 Pressure Support cmH2O Blood Gas Comments Sodium (136-145) mEq/L Potassium (3.5-5.1) mEq/L Chloride (98-107) mEq/L Carbon Dioxide (21-32) mEq/L Anion Gap (5-15) BUN (7-18) mg/dL Creatinine (0.55-1.02) mg/dL Est Cr Clr Drug Dosing mL/min Estimated GFR (MDRD) (>60) mL/min BUN/Creatinine Ratio (14-18) Glucose (83-115) mg/dL Lactic Acid (0.4-2.0) mmol/L Calcium (8.5-10.1) mg/dL Phosphorus (2.6-4.7) mg/dL Magnesium (1.8-2.4) mg/dl Total Bilirubin (0.2-1.0) mg/dL Direct Bilirubin (0.0-0.2) mg/dl Indirect Bilirubin AST (15-37) U/L ALT (14-59) U/L Alkaline Phosphatase (46-116) U/L Troponin I (0.00-0.056) ng/mL NT-Pro-B Natriuret Pep (0-450) pg/mL Total Protein (6.4-8.2) g/dl Albumin (3.4-5.0) g/dl Globulin gm/dL Albumin/Globulin Ratio (1-2) C.difficile 027-NAP1-B1 C. difficile Tox (PCR) 09/01/19 09/01/19 09/01/19 Range/Units 15:45 15:45 15:45 WBC 19.98 H (3.98-10.04) K/mm3 RBC 3.86 L (3.98-5.22) M/mm3 Hgb 10.5 L (11.2-15.7) gm/dl Hct 31.5 L (34.1-44.9) % MCV 81.6 (79.4-94.8) fl MCH 27.2 (25.6-32.2) pg MCHC 33.3 (32.2-35.5) g/dl RDW Std Deviation 70.3 H (36.4-46.3) fL Plt Count 168 L D (182-369) K/mm3 MPV 11.6 (9.4-12.3) fl Neut % (Auto) (34.0-71.1) % Lymph % (Auto) (19.3-51.7) % [place] % (Auto) (4.7-12.5) % Eos % (Auto) (0.7-5.8) Baso % (Auto) (0.1-1.2) % Neut # (Auto) (1.56-6.13) K/mm3 Lymph # (Auto) (1.18-3.74) K/mm3 [place] # (Auto) (0.24-0.36) K/mm3 Eos # (Auto) (0.04-0.36) K/mm3 Baso # (Auto) (0.01-0.08) K/mm3 Manual Slide Review APTT 108 H* (22-31) SECONDS Puncture Site ABG pH (7.35-7.45) ABG pCO2 (35.0-45.0) mmHg ABG pO2 (80.0-100.0) mmHg ABG HCO3 (22.0-26.0) meq/L ABG O2 Saturation (96.0-97.0) % ABG Base Excess (-2-2.0) Ker[place] Test A-a Gradient mmHg O2 Delivery Device FiO2 (21.00-100.00) % PEEP cmH20 Pressure Support cmH2O Blood Gas Comments Sodium 151 H (136-145) mEq/L Potassium 3.9 (3.5-5.1) mEq/L Chloride 117 H (98-107) mEq/L Carbon Dioxide 23 (21-32) mEq/L Anion Gap 14.9 (5-15) BUN 25 H (7-18) mg/dL Creatinine 1.1 H (0.55-1.02) mg/dL Est Cr Clr Drug Dosing 30.92 mL/min Estimated GFR (MDRD) 47 (>60) mL/min BUN/Creatinine Ratio 22.7 H (14-18) Glucose 134 H (83-115) mg/dL Lactic Acid (0.4-2.0) mmol/L Calcium 7.6 L (8.5-10.1) mg/dL Phosphorus (2.6-4.7) mg/dL Magnesium (1.8-2.4) mg/dl Total Bilirubin (0.2-1.0) mg/dL Direct Bilirubin (0.0-0.2) mg/dl Indirect Bilirubin AST (15-37) U/L ALT (14-59) U/L Alkaline Phosphatase (46-116) U/L Troponin I < 0.017 (0.00-0.056) ng/mL NT-Pro-B Natriuret Pep (0-450) pg/mL Total Protein (6.4-8.2) g/dl Albumin (3.4-5.0) g/dl Globulin gm/dL Albumin/Globulin Ratio (1-2) C.difficile 027-NAP1-B1 C. difficile Tox (PCR) 09/01/19 09/01/19 09/01/19 Range/Units 15:45 15:45 15:47 WBC (3.98-10.04) K/mm3 RBC (3.98-5.22) M/mm3 Hgb (11.2-15.7) gm/dl Hct (34.1-44.9) % MCV (79.4-94.8) fl MCH (25.6-32.2) pg MCHC (32.2-35.5) g/dl RDW Std Deviation (36.4-46.3) fL Plt Count (182-369) K/mm3 MPV (9.4-12.3) fl Neut % (Auto) (34.0-71.1) % Lymph % (Auto) (19.3-51.7) % [place] % (Auto) (4.7-12.5) % Eos % (Auto) (0.7-5.8) Baso % (Auto) (0.1-1.2) % Neut # (Auto) (1.56-6.13) K/mm3 Lymph # (Auto) (1.18-3.74) K/mm3 [place] # (Auto) (0.24-0.36) K/mm3 Eos # (Auto) (0.04-0.36) K/mm3 Baso # (Auto) (0.01-0.08) K/mm3 Manual Slide Review APTT (22-31) SECONDS Puncture Site Rt radial ABG pH 7.43 (7.35-7.45) ABG pCO2 32.2 L (35.0-45.0) mmHg ABG pO2 49.0 L (80.0-100.0) mmHg ABG HCO3 21.2 L (22.0-26.0) meq/L ABG O2 Saturation 80.4 L (96.0-97.0) % ABG Base Excess -2.0 (-2-2.0) [place] Test Positive A-a Gradient 269 mmHg O2 Delivery Device Bipap FiO2 0.00 L (21.00-100.00) % PEEP 7.0 cmH20 Pressure Support 14.0 cmH2O Blood Gas Comments Sodium (136-145) mEq/L Potassium (3.5-5.1) mEq/L Chloride (98-107) mEq/L Carbon Dioxide (21-32) mEq/L Anion Gap (5-15) BUN (7-18) mg/dL Creatinine (0.55-1.02) mg/dL Est Cr Clr Drug Dosing mL/min Estimated GFR (MDRD) (>60) mL/min BUN/Creatinine Ratio (14-18) Glucose (83-115) mg/dL Lactic Acid 1.2 (0.4-2.0) mmol/L Calcium (8.5-10.1) mg/dL Phosphorus (2.6-4.7) mg/dL Magnesium (1.8-2.4) mg/dl Total Bilirubin (0.2-1.0) mg/dL Direct Bilirubin (0.0-0.2) mg/dl Indirect Bilirubin AST (15-37) U/L ALT (14-59) U/L Alkaline Phosphatase (46-116) U/L Troponin I (0.00-0.056) ng/mL NT-Pro-B Natriuret Pep 31347 H (0-450) pg/mL Total Protein (6.4-8.2) g/dl Albumin (3.4-5.0) g/dl Globulin gm/dL Albumin/Globulin Ratio (1-2) C.difficile 027-NAP1-B1 C. difficile Tox (PCR) 09/01/19 09/01/19 09/02/19 Range/Units 17:15 17:25 05:10 WBC (3.98-10.04) K/mm3 RBC (3.98-5.22) M/mm3 Hgb (11.2-15.7) gm/dl Hct (34.1-44.9) % MCV (79.4-94.8) fl MCH (25.6-32.2) pg MCHC (32.2-35.5) g/dl RDW Std Deviation (36.4-46.3) fL Plt Count (182-369) K/mm3 MPV (9.4-12.3) fl Neut % (Auto) (34.0-71.1) % Lymph % (Auto) (19.3-51.7) % [place] % (Auto) (4.7-12.5) % Eos % (Auto) (0.7-5.8) Baso % (Auto) (0.1-1.2) % Neut # (Auto) (1.56-6.13) K/mm3 Lymph # (Auto) (1.18-3.74) K/mm3 [place] # (Auto) (0.24-0.36) K/mm3 Eos # (Auto) (0.04-0.36) K/mm3 Baso # (Auto) (0.01-0.08) K/mm3 Manual Slide Review APTT (22-31) SECONDS Puncture Site Lt radial ABG pH 7.48 H (7.35-7.45) ABG pCO2 32.3 L (35.0-45.0) mmHg ABG pO2 68.0 L (80.0-100.0) mmHg ABG HCO3 23.8 (22.0-26.0) meq/L ABG O2 Saturation 94.9 L (96.0-97.0) % ABG Base Excess 1.0 (-2-2.0) Kerwin Test Positive A-a Gradient 106 mmHg O2 Delivery Device Bipap FiO2 30.00 (21.00-100.00) % PEEP cmH20 Pressure Support cmH2O Blood Gas Comments 14/9 Sodium (136-145) mEq/L Potassium (3.5-5.1) mEq/L Chloride (98-107) mEq/L Carbon Dioxide (21-32) mEq/L Anion Gap (5-15) BUN (7-18) mg/dL Creatinine (0.55-1.02) mg/dL Est Cr Clr Drug Dosing mL/min Estimated GFR (MDRD) (>60) mL/min BUN/Creatinine Ratio (14-18) Glucose (83-115) mg/dL Lactic Acid (0.4-2.0) mmol/L Calcium (8.5-10.1) mg/dL Phosphorus (2.6-4.7) mg/dL Magnesium (1.8-2.4) mg/dl Total Bilirubin 0.6 (0.2-1.0) mg/dL Direct Bilirubin 0.20 (0.0-0.2) mg/dl Indirect Bilirubin 0.40 AST 16 (15-37) U/L ALT 18 (14-59) U/L Alkaline Phosphatase 56 (46-116) U/L Troponin I (0.00-0.056) ng/mL NT-Pro-B Natriuret Pep (0-450) pg/mL Total Protein 4.9 L (6.4-8.2) g/dl Albumin 1.7 L (3.4-5.0) g/dl Globulin 3.2 gm/dL Albumin/Globulin Ratio 0.5 L (1-2) C.difficile 027-NAP1-B1 Presumptive negative C. difficile Tox (PCR) Negative 09/02/19 09/02/19 09/02/19 Range/Units 05:17 05:17 05:17 WBC 18.79 H (3.98-10.04) K/mm3 RBC 3.39 L (3.98-5.22) M/mm3 Hgb 9.3 L (11.2-15.7) gm/dl Hct 28.0 L (34.1-44.9) % MCV 82.6 (79.4-94.8) fl MCH 27.4 (25.6-32.2) pg MCHC 33.2 (32.2-35.5) g/dl RDW Std Deviation 70.8 H (36.4-46.3) fL Plt Count 170 L (182-369) K/mm3 MPV 11.3 (9.4-12.3) fl Neut % (Auto) 82.4 H (34.0-71.1) % Lymph % (Auto) 10.8 L (19.3-51.7) % [place] % (Auto) 3.5 L (4.7-12.5) % Eos % (Auto) 1.2 (0.7-5.8) Baso % (Auto) 0.2 (0.1-1.2) % Neut # (Auto) 15.48 H (1.56-6.13) K/mm3 Lymph # (Auto) 2.03 (1.18-3.74) K/mm3 [place] # (Auto) 0.66 H (0.24-0.36) K/mm3 Eos # (Auto) 0.23 (0.04-0.36) K/mm3 Baso # (Auto) 0.03 (0.01-0.08) K/mm3 Manual Slide Review Abnormal smear APTT 53 H D (22-31) SECONDS Puncture Site ABG pH (7.35-7.45) ABG pCO2 (35.0-45.0) mmHg ABG pO2 (80.0-100.0) mmHg ABG HCO3 (22.0-26.0) meq/L ABG O2 Saturation (96.0-97.0) % ABG Base Excess (-2-2.0) Kerwin Test A-a Gradient mmHg O2 Delivery Device FiO2 (21.00-100.00) % PEEP cmH20 Pressure Support cmH2O Blood Gas Comments Sodium 146 H (136-145) mEq/L Potassium 3.4 L (3.5-5.1) mEq/L Chloride 109 H (98-107) mEq/L Carbon Dioxide 25 (21-32) mEq/L Anion Gap 15.4 H (5-15) BUN 25 H (7-18) mg/dL Creatinine 1.3 H (0.55-1.02) mg/dL Est Cr Clr Drug Dosing 26.16 mL/min Estimated GFR (MDRD) 39 (>60) mL/min BUN/Creatinine Ratio 19.2 H (14-18) Glucose 101 (83-115) mg/dL Lactic Acid (0.4-2.0) mmol/L Calcium 8.5 (8.5-10.1) mg/dL Phosphorus 3.2 (2.6-4.7) mg/dL Magnesium 2.0 (1.8-2.4) mg/dl Total Bilirubin 0.7 (0.2-1.0) mg/dL Direct Bilirubin (0.0-0.2) mg/dl Indirect Bilirubin AST 18 (15-37) U/L ALT 15 (14-59) U/L Alkaline Phosphatase 48 (46-116) U/L Troponin I (0.00-0.056) ng/mL NT-Pro-B Natriuret Pep (0-450) pg/mL Total Protein 4.8 L (6.4-8.2) g/dl Albumin 1.7 L (3.4-5.0) g/dl Globulin 3.1 gm/dL Albumin/Globulin Ratio 0.6 L (1-2) C.difficile 027-NAP1-B1 C. difficile Tox (PCR) Gerardo Results Last 24 Hrs: Microbiology 09/01/19 19:40 Urine Culture - Preliminary Urine, Catheterized NO GROWTH AFTER 1 DAY Med Orders - Current: Current Medications Albuterol/Ipratropium (Duoneb 3.0-0.5 Mg/3 Ml) 3 ml NEB Q6HRRT [facility] Last Admin: 09/02/19 08:31 Dose: 3 ml Amlodipine Besylate (Norvasc) 10 mg PO DAILY [facility] Last Admin: 09/02/19 08:08 Dose: 10 mg Chlorthalidone (Chlorthalidone) 25 mg PO DAILY [facility] Last Admin: 09/02/19 08:09 Dose: 25 mg Hydralazine HCl (Apresoline) 10 mg IVPUSH Q2H PRN PRN Reason: Systolic >180 / Diastolic >100 Last Admin: 08/31/19 01:25 Dose: 10 mg Piperacillin Sod/Tazobactam (Sod 4.5 gm/ Sodium Chloride) 100 mls @ 25 mls/hr IV Q8H [facility] Last Admin: 09/02/19 05:38 Dose: 25 mls/hr Argatroban 250 mg/ Sodium (Chloride) 252.5 mls @ 9.69 mls/hr IV TITRATE [facility]; Protocol Last Admin: 09/02/19 02:00 Dose: 0.5 mcg/kg/min, 2.42 mls/hr Norepinephrine Bitartrate 4 mg (/ Dextrose/Water) 250 mls @ 7.5 mls/hr IV TITRATE [facility]; Protocol Dextrose/Water (Dextrose 5% In Water) 1,000 mls @ 50 mls/hr IV ASDIRECTED [facility] Last Admin: 09/01/19 17:26 Dose: 50 mls/hr Sodium Chloride (Normal Saline) 100 mls @ 75 mls/hr IV ASDIRECTED [facility] Linezolid 600 mg/ Premix 300 mls @ 300 mls/hr IV Q12H [facility] Last Admin: 09/02/19 07:46 Dose: 300 mls/hr Morphine Sulfate (Morphine) 1 mg IVPUSH Q4H PRN PRN Reason: Pain Last Admin: 09/02/19 08:50 Dose: 1 mg Pantoprazole Sodium (Protonix Iv) 40 mg IVPUSH DAILY [facility] Last Admin: 09/02/19 08:00 Dose: 40 mg Potassium Chloride (Potassium Chloride Solution) 20 meq NGTUBE BID [facility] Last Admin: 09/02/19 08:02 Dose: 20 meq Psyllium Husk (Metamucil Sugar Free) 1 packet PO BID [facility] Last Admin: 09/02/19 11:59 Dose: 1 packet Sodium Chloride (Saline Flush) 10 ml FLUSH ASDIRECTED PRN PRN Reason: Keep Vein Open Last Admin: 09/01/19 18:31 Dose: 10 ml Discontinued Medications Atropine Sulfate (Atropine 0.1 Mg/Ml) 0.5 mg IVPUSH ONETIME ONE Stop: 08/27/19 07:57 Last Admin: 08/27/19 08:09 Dose: 0.5 mg Bumetanide (Bumex) 1 mg IVPUSH ONETIME ONE Stop: 08/25/19 22:49 Last Admin: 08/26/19 00:07 Dose: 1 mg Bumetanide (Bumex) 1 mg IVPUSH BID [facility] Last Admin: 08/28/19 08:06 Dose: 1 mg Dextrose/Water (Dextrose 50% In Water) 25 ml IVPUSH NOW STA Stop: 08/27/19 05:41 Last Admin: 08/27/19 05:47 Dose: 25 ml Enoxaparin Sodium (Lovenox) 70 mg SUBCUT Q24H [facility] Last Admin: 08/28/19 11:48 Dose: 70 mg Ephedrine Sulfate (Ephedrine In Ns) Confirm Administered Dose 25 mg .ROUTE .STK- MED ONE Stop: 08/24/19 21:32 Etomidate (Amidate) 40 mg IVPUSH .STK-MED ONE Stop: 08/24/19 15:01 Fentanyl (Sublimaze) Confirm Administered Dose 250 mcg .ROUTE .STK-MED ONE Stop: 08/24/19 18:10 Furosemide (Lasix) 60 mg IVPUSH NOW ONE Stop: 09/01/19 16:59 Last Admin: 09/01/19 17:15 Dose: 60 mg Furosemide (Lasix) 60 mg IVPUSH ONETIME ONE Stop: 09/02/19 00:01 Last Admin: 09/01/19 23:55 Dose: 60 mg Furosemide (Lasix) 40 mg IVPUSH NOW ONE Stop: 09/02/19 10:49 Last Admin: 09/02/19 11:59 Dose: 40 mg Heparin Sodium (Porcine) (Heparin Sodium) 5,000 units IVPUSH .BOLUS ONE Stop: 08/25/19 13:27 Last Admin: 08/25/19 14:11 Dose: 5,000 units Heparin Sodium (Porcine) (Heparin Lock Flush 100 Units/Ml) Confirm Administered Dose 500 units .ROUTE .STK-MED ONE Stop: 08/25/19 22:38 Last Admin: 08/25/19 23:02 Dose: 500 units Hydralazine HCl (Apresoline) 10 mg IVPUSH ONETIME ONE Stop: 08/29/19 07:47 Last Admin: 08/29/19 08:08 Dose: 10 mg Hydralazine HCl (Apresoline) 10 mg IVPUSH ONETIME ONE Stop: 08/30/19 11:55 Last Admin: 08/30/19 12:03 Dose: 10 mg Hydrocortisone Sodium Succinate (Solu-Cortef) 50 mg IV Q8H [facility] Last Admin: 08/29/19 12:21 Dose: 50 mg Hydromorphone HCl (Dilaudid) 0.5 mg IVPUSH ONETIME ONE Stop: 08/24/19 07:28 Last Admin: 08/24/19 08:15 Dose: 0.5 mg Sodium Chloride (Normal Saline) 1,000 mls @ 1,000 mls/hr IV .BOLUS STA Stop: 08/24/19 08:25 Last Admin: 08/24/19 08:13 Dose: 1,000 mls/hr Cefepime HCl 2 gm/ Premix 50 mls @ 100 mls/hr IV ONETIME ONE Stop: 08/24/19 13:18 Last Admin: 08/24/19 13:19 Dose: 100 mls/hr Lactated Ringer's (Ringers, Lactated) 1,100 mls @ 1,000 mls/hr IV .BOLUS ONE Stop: 08/24/19 14:13 Last Admin: 08/24/19 13:40 Dose: 1,000 mls/hr Levofloxacin/Dextrose 750 mg/ (Premix) 150 mls @ 100 mls/hr IV ONETIME ONE Stop: 08/24/19 15:07 Last Admin: 08/24/19 16:03 Dose: 100 mls/hr Piperacillin Sod/Tazobactam (Sod 4.5 gm/ Sodium Chloride) 100 mls @ 25 mls/hr IV Q8H [facility] Last Admin: 08/26/19 05:13 Dose: 25 mls/hr Vancomycin HCl 1 gm/ Sodium (Chloride) 250 mls @ 250 mls/hr IV ONETIME ONE Stop: 08/24/19 14:37 Last Admin: 08/24/19 16:06 Dose: 250 mls/hr Fentanyl 2,500 mcg/ Sodium (Chloride) 250 mls @ 7.27 mls/hr IV TITRATE [facility]; Protocol Last Titration: 08/28/19 04:23 Dose: 0 mcg/kg/hr, 0 mls/hr Midazolam HCl 50 mg/ Sodium (Chloride) 50 mls @ 0.5 mls/hr IV TITRATE [facility]; Protocol Stop: 08/25/19 15:29 Last Titration: 08/25/19 11:57 Dose: 2 mg/hr, 2 mls/hr Lactated Ringer's (Ringers, Lactated) 1,000 mls @ 125 mls/hr IV ASDIRECTED [facility] Last Admin: 08/25/19 01:00 Dose: 125 mls/hr Norepinephrine Bitartrate 4 mg (/ Dextrose/Water) 250 mls @ 7.5 mls/hr IV TITRATE [facility]; Protocol Last Titration: 08/27/19 07:25 Dose: 0 mcg/min, 0 mls/hr Sodium Chloride (Normal Saline) Confirm Administered Dose 1,000 mls @ as directed .ROUTE .STK-MED ONE Stop: 08/24/19 17:09 Last Admin: 08/24/19 17:16 Dose: 1 mls/hr Lactated Ringer's (Ringers, Lactated) Confirm Administered Dose 1,000 mls @ as directed .ROUTE .STK-MED ONE Stop: 08/24/19 18:34 Lactated Ringer's (Ringers, Lactated) Confirm Administered Dose 1,000 mls @ as directed .ROUTE .STK-MED ONE Stop: 08/24/19 19:10 Lactated Ringer's (Ringers, Lactated) Confirm Administered Dose 1,000 mls @ as directed .ROUTE .STK-MED ONE Stop: 08/24/19 19:46 Lactated Ringer's (Ringers, Lactated) Confirm Administered Dose 1,000 mls @ as directed .ROUTE .STK-MED ONE Stop: 08/24/19 20:40 Lactated Ringer's (Ringers, Lactated) 1,000 mls @ 250 mls/hr IV ASDIRECTED [facility] Last Infusion: 08/26/19 12:28 Dose: Infused Lactated Ringer's (Ringers, Lactated) 1,000 mls @ 999 mls/hr IV .BOLUS ONE Stop: 08/25/19 09:03 Last Admin: 08/25/19 08:10 Dose: 999 mls/hr Heparin Sodium/Dextrose (Heparin 25,000 Units In D5w 500 Ml) 25,000 units in 500 mls @ 26 mls/hr IV TITRATE [facility]; Protocol Last Admin: 08/26/19 08:24 Dose: 22 units/kg/hr, 32.013 mls/hr Dopamine HCl/Dextrose (Dopamine In D5w 400 Mg/250 Ml) 400 mg in 250 mls @ 5.457 mls/hr IV TITRATE [facility]; Protocol Last Titration: 08/26/19 15:20 Dose: 0 mcg/kg/min, 0 mls/hr Lactated Ringer's (Ringers, Lactated) 2,000 mls @ 999 mls/hr IV .BOLUS ONE Stop: 08/25/19 17:52 Last Admin: 08/25/19 16:11 Dose: 999 mls/hr Lactated Ringer's (Ringers, Lactated) 1,000 mls @ 999 mls/hr IV .BOLUS ONE Stop: 08/25/19 17:13 Last Admin: 08/25/19 16:48 Dose: 999 mls/hr Midazolam HCl 50 mg/ Sodium (Chloride) 50 mls @ 0.5 mls/hr IV TITRATE [facility]; Protocol Last Titration: 08/27/19 07:55 Dose: 0 mg/hr, 0 mls/hr Albumin Human (Flexbumin 25%) 25 gm in 100 mls @ 100 mls/hr IV Q1H [facility] Stop: 08/26/19 00:46 Last Admin: 08/26/19 00:07 Dose: 100 mls/hr Albumin Human (Flexbumin 25%) 12.5 gm in 50 mls @ 100 mls/hr IV Q8H [facility] Stop: 08/29/19 07:01 Last Admin: 08/29/19 05:59 Dose: 100 mls/hr Lactated Ringer's (Ringers, Lactated) 1,000 mls @ 200 mls/hr IV ASDIRECTED [facility] Last Infusion: 08/26/19 12:30 Dose: 100 mls/hr Magnesium Sulfate 4 gm/ Premix 100 mls @ 25 mls/hr IV ONETIME ONE Stop: 08/26/19 07:31 Last Admin: 08/26/19 06:48 Dose: 25 mls/hr Piperacillin Sod/Tazobactam (Sod 4.5 gm/ Sodium Chloride) 100 mls @ 25 mls/hr IV Q12H [facility] Stop: 08/29/19 10:00 Last Admin: 08/29/19 07:09 Dose: Not Given Lactated Ringer's (Ringers, Lactated) 1,000 mls @ 100 mls/hr IV ASDIRECTED [facility] Last Admin: 08/26/19 18:09 Dose: 100 mls/hr Dextrose/Water (Dextrose 10% In Water) 1,000 mls @ 25 mls/hr IV ASDIRECTED [facility] Dextrose/Water (Dextrose 10% In Water) 1,000 mls @ 25 mls/hr IV ASDIRECTED [facility] Last Admin: 08/27/19 05:52 Dose: 25 mls/hr Dextrose/Water (Dextrose 10% In Water) Confirm Administered Dose 1,000 mls @ as directed .ROUTE .STK-MED ONE Stop: 08/27/19 05:47 Last Admin: 08/27/19 05:56 Dose: Not Given Potassium Cl/Dextrose/Lact Ringer's (D5 Lr With 20 Meq Kcl) 1,000 mls @ 100 mls /hr IV ASDIRECTED [facility] Last Infusion: 08/28/19 11:57 Dose: 50 mls/hr Potassium Chloride 10 meq/ (Premix) 100 mls @ 100 mls/hr IV Q1H [facility] Stop: 08/27/19 12:59 Last Admin: 08/27/19 12:55 Dose: 100 mls/hr Potassium Chloride 10 meq/ (Premix) 100 mls @ 100 mls/hr IV Q1H [facility] Stop: 08/28/19 15:29 Last Admin: 08/28/19 15:11 Dose: 100 mls/hr Potassium Cl/Dextrose/Lact Ringer's (D5 Lr With 20 Meq Kcl) 1,000 mls @ 50 mls/ hr IV ASDIRECTED [facility] Last Admin: 08/30/19 18:01 Dose: 50 mls/hr Potassium Chloride 10 meq/ (Premix) 100 mls @ 100 mls/hr IV Q1H [facility] Stop: 08/29/19 17:59 Last Admin: 08/29/19 17:47 Dose: 100 mls/hr Magnesium Sulfate 2 gm/ Premix 50 mls @ 25 mls/hr IV 1200,2100 [facility] Stop: 08/29/19 22:59 Last Admin: 08/29/19 20:25 Dose: 25 mls/hr Sodium Chloride (Normal Saline) 1,000 mls @ 999 mls/hr IRR ONETIME ONE Stop: 08/29/19 13:07 Last Admin: 08/29/19 12:52 Dose: 999 mls/hr Sodium Chloride (Normal Saline) 100 mls @ 60 mls/hr IV ASDIRECTED [facility] Stop: 08/30/19 13:00 Potassium Chloride 10 meq/ (Premix) 100 mls @ 100 mls/hr IV Q1H [facility] Stop: 08/31/19 11:29 Last Admin: 08/31/19 11:42 Dose: 100 mls/hr Dextrose/Water (Dextrose 5% In Water) Confirm Administered Dose 250 mls @ as directed .ROUTE .STK-MED ONE Stop: 09/01/19 15:54 Last Admin: 09/01/19 18:13 Dose: Not Given Linezolid 600 mg/ Premix 300 mls @ 300 mls/hr IV Q12H [facility] Last Admin: 09/01/19 19:54 Dose: Not Given Iopamidol (Isovue-370 (76%)) 100 ml IVPUSH ONETIME ONE Stop: 09/01/19 17:31 Last Admin: 09/01/19 17:31 Dose: 100 ml Levothyroxine Sodium (Synthroid) 75 mcg PO DAILY [facility] Morphine Sulfate (Morphine) 1 mg IVPUSH ONETIME ONE Stop: 08/29/19 07:47 Last Admin: 08/29/19 08:09 Dose: 1 mg Non-Formulary Medication (Losartan) 50 mg PO BEDTIME [facility] Norepinephrine Bitartrate (Levophed) Confirm Administered Dose 4 mg .ROUTE .STK- MED ONE Stop: 08/24/19 16:39 Last Admin: 08/24/19 16:47 Dose: Not Given Norepinephrine Bitartrate (Levophed) Confirm Administered Dose 4 mg .ROUTE .STK- MED ONE Stop: 09/01/19 15:54 Last Admin: 09/01/19 18:12 Dose: Not Given Ondansetron HCl (Zofran) 4 mg IVPUSH ONETIME ONE Stop: 08/24/19 07:27 Last Admin: 08/24/19 08:13 Dose: 4 mg Potassium Chloride (Klor-Con M20) 20 meq PO BID [facility] Last Admin: 09/01/19 08:51 Dose: 20 meq Potassium Chloride (Potassium Chloride Solution) 40 meq NGTUBE ONETIME ONE Stop: 09/01/19 12:01 Last Admin: 09/01/19 11:39 Dose: 40 meq Sodium Chloride (Saline Flush) 10 ml FLUSH ONETIME ONE Stop: 08/30/19 09:01 Last Admin: 08/30/19 09:09 Dose: 10 ml Succinylcholine Chloride (Quelicin) 200 mg .ROUTE .STK-MED ONE Stop: 08/24/19 15:01 Vecuronium Royal (Vecuronium) Confirm Administered Dose 10 mg .ROUTE .STK-MED ONE Stop: 08/24/19 20:13 - Exam Wound/Incisions: Healing Well, Drainage (improving) Quality Assessment: Supplemental Oxygen General: Alert, Cooperative, No Acute Distress Lungs: Rales Cardiovascular: Regular Rate, Regular Rhythm, No Murmurs GI/Abdominal Exam: Soft, Pelvis Stable, Tender (appropriately) Sepsis Event Note - Evaluation Sepsis Screening Result: No Definite Risk - Focused Exam Vital Signs: Vital Signs Temp Pulse Resp BP BP BP Pulse Ox 09/02/19 12:00 97.4 F 12 112/46 L 98 09/02/19 08:48 09/02/19 08:32 09/02/19 08:08 137/42 L 09/02/19 07:57 97.4 F 15 120/48 L 98 09/02/19 05:34 09/02/19 04:00 98.0 F 15 123/50 L 97 09/02/19 02:48 09/02/19 02:45 70 15 99 09/02/19 02:30 80 16 98 09/02/19 02:15 66 13 99 09/02/19 02:01 72 15 117/47 L 99 09/02/19 02:00 71 13 99 09/02/19 01:45 74 15 99 09/02/19 01:30 73 15 98 Pulse Ox 09/02/19 12:00 09/02/19 08:48 98 09/02/19 08:32 98 09/02/19 08:08 09/02/19 07:57 09/02/19 05:34 98 09/02/19 04:00 09/02/19 02:48 100 09/02/19 02:45 09/02/19 02:30 09/02/19 02:15 09/02/19 02:01 09/02/19 02:00 09/02/19 01:45 09/02/19 01:30 Date Exam was Performed: 09/02/19 Time Exam was Performed: 13:29 - Problem List Review Problem List Initiated/Reviewed/Updated: No - My Orders Last 24 Hours: Active Orders 24 hr Category Date Time Status Aspiration Precautions [RC] 09,21 Care 09/02/19 10:54 Active Communication Order [RC] STAT Care 09/01/19 19:20 Active RT Aerosol Therapy [RC] ASDIRECTED Care 09/01/19 16:11 Active RT Arterial Blood Gases, ABG [RC] ONETIME Care 09/02/19 13:00 Active Consult to Speech Language Pathology [[employer] Evaluation Cons 09/02/19 07:00 Active and Treatment] [CONS] Routine Tube Feeding [Enteral Feedings] [RC] Click to Edit Diet 09/02/19 10:54 Active ABG [BLOOD GAS ARTERIAL] [BG] Routine Lab 09/02/19 13:00 Ordered CBC WITH AUTO DIFF [HEME] AM Lab 09/03/19 05:11 Ordered CBC WITH AUTO DIFF [HEME] AM Lab 09/04/19 05:11 Ordered CMP [COMPREHENSIVE METABOLIC PN,CMP] [CHEM] AM Lab 09/03/19 05:11 Ordered CMP [COMPREHENSIVE METABOLIC PN,CMP] [CHEM] AM Lab 09/04/19 05:11 Ordered CULTURE BLOOD [BC] Stat Lab 09/01/19 19:50 Received CULTURE BLOOD [BC] Stat Lab 09/01/19 20:20 Received CULTURE URINE [RM] Routine Lab 09/01/19 19:40 Results MAGNESIUM [CHEM] AM Lab 09/03/19 05:11 Ordered MAGNESIUM [CHEM] AM Lab 09/04/19 05:11 Ordered aPTT [PTT,PARTIAL THROMBOPLSTIN TIME] [COAG] Routine Lab 09/02/19 13:03 Received Albuterol/Ipratropium [DuoNeb 3.0-0.5 MG/3 ML] Med 09/01/19 15:00 Active 3 ml NEB Q6HRRT Dextrose 5% in Water 1,000 ml Med 09/01/19 17:15 Active IV ASDIRECTED Linezolid [Zyvox] 600 mg Med 09/01/19 20:00 Active Premix Bag 1 bag IV Q12H Norepinephrine [Levophed] 4 mg Med 09/01/19 16:00 Active Dextrose 5% in Water 246 ml IV TITRATE Potassium Chloride [Potassium Chloride Solution] Med 09/01/19 21:00 Active 20 meq NGTUBE BID Psyllium Husk/Aspartame [Metamucil Sugar Free] Med 09/02/19 11:00 Active 1 packet PO BID Sodium Chloride 0.9% [Normal Saline] 100 ml Med 09/01/19 17:30 Active IV ASDIRECTED Blood Culture x2 Reflex Set [OM.PC] Stat Oth 09/01/19 19:21 Ordered EKG 12 Lead [EK] Routine Ther 09/01/19 16:18 Ordered Medication Orders Albuterol/Ipratropium (Duoneb 3.0-0.5 Mg/3 Ml) 3 ml NEB Q6HRRT [facility] Last Admin: 09/02/19 08:31 Dose: 3 ml Admin: 09/02/19 02:45 Dose: 3 ml Admin: 09/01/19 20:26 Dose: 3 ml Admin: 09/01/19 16:16 Dose: 3 ml Amlodipine Besylate (Norvasc) 10 mg PO DAILY [facility] Last Admin: 09/02/19 08:08 Dose: 10 mg Admin: 09/01/19 08:51 Dose: 10 mg Admin: 08/31/19 09:50 Dose: 10 mg Admin: 08/30/19 09:10 Dose: 10 mg Admin: 08/29/19 12:51 Dose: 10 mg Chlorthalidone (Chlorthalidone) 25 mg PO DAILY [facility] Last Admin: 09/02/19 08:09 Dose: 25 mg Admin: 09/01/19 08:50 Dose: 25 mg Admin: 08/31/19 09:50 Dose: 25 mg Admin: 08/30/19 10:58 Dose: 25 mg Hydralazine HCl (Apresoline) 10 mg IVPUSH Q2H PRN PRN Reason: Systolic >180 / Diastolic >100 Last Admin: 08/31/19 01:25 Dose: 10 mg Admin: 08/30/19 21:48 Dose: 10 mg Admin: 08/30/19 18:01 Dose: 10 mg Piperacillin Sod/Tazobactam (Sod 4.5 gm/ Sodium Chloride) 100 mls @ 25 mls/hr IV Q8H [facility] Last Admin: 09/02/19 05:38 Dose: 25 mls/hr Infusion: 09/02/19 02:02 Dose: 25 mls/hr Admin: 09/01/19 22:02 Dose: 25 mls/hr Infusion: 09/01/19 18:37 Dose: 25 mls/hr Admin: 09/01/19 14:37 Dose: 25 mls/hr Infusion: 09/01/19 09:47 Dose: 25 mls/hr Admin: 09/01/19 05:47 Dose: 25 mls/hr Infusion: 09/01/19 01:24 Dose: 25 mls/hr Admin: 08/31/19 21:24 Dose: 25 mls/hr Infusion: 08/31/19 17:37 Dose: 25 mls/hr Admin: 08/31/19 13:37 Dose: 25 mls/hr Infusion: 08/31/19 10:06 Dose: 25 mls/hr Admin: 08/31/19 06:06 Dose: 25 mls/hr Infusion: 08/31/19 01:52 Dose: 25 mls/hr Admin: 08/30/19 21:52 Dose: 25 mls/hr Infusion: 08/30/19 17:18 Dose: 25 mls/hr Admin: 08/30/19 13:18 Dose: 25 mls/hr Infusion: 08/30/19 09:17 Dose: 25 mls/hr Admin: 08/30/19 05:17 Dose: 25 mls/hr Infusion: 08/30/19 02:55 Dose: 25 mls/hr Admin: 08/29/19 22:55 Dose: 25 mls/hr Infusion: 08/29/19 17:24 Dose: 25 mls/hr Admin: 08/29/19 13:24 Dose: 25 mls/hr Argatroban 250 mg/ Sodium (Chloride) 252.5 mls @ 9.69 mls/hr IV TITRATE [facility]; Protocol Last Admin: 09/02/19 02:00 Dose: 0.5 mcg/kg/min, 2.42 mls/hr Titration: 09/02/19 02:00 Dose: 0.5 mcg/kg/min, 2.42 mls/hr Titration: 09/01/19 17:43 Dose: 0.5 mcg/kg/min, 2.42 mls/hr Admin: 09/01/19 02:30 Dose: 1 mcg/kg/min, 4.84 mls/hr Titration: 09/01/19 02:30 Dose: 1 mcg/kg/min, 4.84 mls/hr Admin: 08/31/19 02:52 Dose: 1 mcg/kg/min, 4.84 mls/hr Titration: 08/31/19 02:52 Dose: 1 mcg/kg/min, 4.84 mls/hr Titration: 08/30/19 21:04 Dose: 1 mcg/kg/min, 4.84 mls/hr Titration: 08/30/19 19:05 Dose: 0 mcg/kg/min, 0 mls/hr Admin: 08/30/19 15:25 Dose: 1 mcg/kg/min, 4.84 mls/hr Titration: 08/30/19 15:25 Dose: 1 mcg/kg/min, 4.84 mls/hr Admin: 08/30/19 10:44 Dose: 1 mcg/kg/min, 4.84 mls/hr Titration: 08/30/19 10:44 Dose: 2 mcg/kg/min, 9.69 mls/hr Admin: 08/29/19 14:21 Dose: 2 mcg/kg/min, 9.69 mls/hr Norepinephrine Bitartrate 4 mg (/ Dextrose/Water) 250 mls @ 7.5 mls/hr IV TITRATE [facility]; Protocol Dextrose/Water (Dextrose 5% In Water) 1,000 mls @ 50 mls/hr IV ASDIRECTED [facility] Last Admin: 09/01/19 17:26 Dose: 50 mls/hr Sodium Chloride (Normal Saline) 100 mls @ 75 mls/hr IV ASDIRECTED [facility] Linezolid 600 mg/ Premix 300 mls @ 300 mls/hr IV Q12H [facility] Last Admin: 09/02/19 07:46 Dose: 300 mls/hr Infusion: 09/01/19 21:16 Dose: 300 mls/hr Admin: 09/01/19 20:16 Dose: 300 mls/hr Morphine Sulfate (Morphine) 1 mg IVPUSH Q4H PRN PRN Reason: Pain Last Admin: 09/02/19 08:50 Dose: 1 mg Admin: 09/02/19 00:05 Dose: 1 mg Admin: 09/01/19 02:33 Dose: 1 mg Admin: 08/31/19 21:26 Dose: 1 mg Admin: 08/31/19 14:27 Dose: 1 mg Admin: 08/31/19 00:05 Dose: 1 mg Admin: 08/30/19 05:17 Dose: 1 mg Admin: 08/29/19 20:28 Dose: 1 mg Admin: 08/29/19 17:44 Dose: 1 mg Admin: 08/29/19 12:50 Dose: 1 mg Pantoprazole Sodium (Protonix Iv) 40 mg IVPUSH DAILY [facility] Last Admin: 09/02/19 08:00 Dose: 40 mg Admin: 09/01/19 08:50 Dose: 40 mg Admin: 08/31/19 09:49 Dose: 40 mg Admin: 08/30/19 09:06 Dose: 40 mg Admin: 08/29/19 08:08 Dose: 40 mg Admin: 08/28/19 08:06 Dose: 40 mg Admin: 08/27/19 08:34 Dose: 40 mg Admin: 08/26/19 08:40 Dose: 40 mg Admin: 08/25/19 08:19 Dose: 40 mg Potassium Chloride (Potassium Chloride Solution) 20 meq NGTUBE BID [facility] Last Admin: 09/02/19 08:02 Dose: 20 meq Admin: 09/01/19 20:20 Dose: 20 meq Psyllium Husk (Metamucil Sugar Free) 1 packet PO BID [facility] Last Admin: 09/02/19 11:59 Dose: 1 packet Sodium Chloride (Saline Flush) 10 ml FLUSH ASDIRECTED PRN PRN Reason: Keep Vein Open Last Admin: 09/01/19 18:31 Dose: 10 ml Admin: 08/24/19 08:14 Dose: 10 ml - Assessment Assessment (Free Text/Narrative):: Patient has elevated WBC yesterday. Zyvox added. 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 No other evidence of aortic emboli. Patient now awake and alert. - Plan Plan (Free Text/Narrative):: - continue dressing changes as currently planned. - continue TF, advance slowly to goal of 65cc/hr. Continue fiber supplementation. Repeat swallow eval. If fails, we can place DHT for extended feeding until the patient is able to swallow. If we place DHT then meds will have to be given either by IV or rectal as DHT will clog easily with med administration. Another option will be to leave NGT which can tolerate meds administration. - ECHO done. If no cardiac thrombus, then we will dc systemic anticoagulation and start ASA - She will likely need LTACH for discharge.
--- NOTE | 2019-09-02 18:15 | PCM.PN ---
- General Info Date of Service: 09/02/19 Admission Dx/Problem (Free Text): Decreased urine output Norepinephrine drip Fentanyl and versed for sedation LR for fluid repletion Levaquin, vancomycin and Zosyn Subjective Update: Patient doing much better today. She is off BiPAP and tolerating nasal cannula. She is much more active and able to communicate. She worked with physical therapy. When the speech therapy came in early this morning she was unable to even stick out her tongue, but this afternoon she is talking and moving her extremities. 12 pound weight loss overnight. Still 12 pounds up from admission. - Review of Systems General: Reports: Weakness HEENT: Reports: No Symptoms Pulmonary: Reports: No Symptoms Cardiovascular: Reports: No Symptoms Gastrointestinal: Reports: No Symptoms - Patient Data Vitals - Most Recent: Last Vital Signs Temp 97.5 F 09/02/19 15:56 Pulse 70 09/02/19 02:45 Resp 14 09/02/19 15:56 BP 120/48 L 09/02/19 15:56 Pulse Ox 93 L 09/02/19 17:37 Weight - Most Recent: 177 lb 12.8 oz I&O - Last 24 Hours: Intake & Output 09/02/19 09/02/19 09/02/19 06:59 14:59 22:59 Intake Total 7100 589 5463 Output Total 5416 2569 650 Balance -1676 -1611 578 Lab Results Last 24 Hours: Laboratory Results - last 24 hr 09/01/19 09/02/19 09/02/19 Range/Units 17:15 05:10 05:17 WBC 18.79 H (3.98-10.04) K/mm3 RBC 3.39 L (3.98-5.22) M/mm3 Hgb 9.3 L (11.2-15.7) gm/dl Hct 28.0 L (34.1-44.9) % MCV 82.6 (79.4-94.8) fl MCH 27.4 (25.6-32.2) pg MCHC 33.2 (32.2-35.5) g/dl RDW Std Deviation 70.8 H (36.4-46.3) fL Plt Count 170 L (182-369) K/mm3 MPV 11.3 (9.4-12.3) fl Neut % (Auto) 82.4 H (34.0-71.1) % Lymph % (Auto) 10.8 L (19.3-51.7) % [place] % (Auto) 3.5 L (4.7-12.5) % Eos % (Auto) 1.2 (0.7-5.8) Baso % (Auto) 0.2 (0.1-1.2) % Neut # (Auto) 15.48 H (1.56-6.13) K/mm3 Lymph # (Auto) 2.03 (1.18-3.74) K/mm3 [place] # (Auto) 0.66 H (0.24-0.36) K/mm3 Eos # (Auto) 0.23 (0.04-0.36) K/mm3 Baso # (Auto) 0.03 (0.01-0.08) K/mm3 Manual Slide Review Abnormal smear APTT (22-31) SECONDS Puncture Site Lt radial ABG pH 7.48 H (7.35-7.45) ABG pCO2 32.3 L (35.0-45.0) mmHg ABG pO2 68.0 L (80.0-100.0) mmHg ABG HCO3 23.8 (22.0-26.0) meq/L ABG O2 Saturation 94.9 L (96.0-97.0) % ABG Base Excess 1.0 (-2-2.0) Kerwin Test Positive A-a Gradient 106 mmHg O2 Delivery Device Bipap Oxygen Flow Rate FiO2 30.00 (21.00-100.00) % Blood Gas Comments 14/9 Sodium (136-145) mEq/L Potassium (3.5-5.1) mEq/L Chloride (98-107) mEq/L Carbon Dioxide (21-32) mEq/L Anion Gap (5-15) BUN (7-18) mg/dL Creatinine (0.55-1.02) mg/dL Est Cr Clr Drug Dosing mL/min Estimated GFR (MDRD) (>60) mL/min BUN/Creatinine Ratio (14-18) Glucose (83-115) mg/dL Calcium (8.5-10.1) mg/dL Phosphorus (2.6-4.7) mg/dL Magnesium (1.8-2.4) mg/dl Total Bilirubin (0.2-1.0) mg/dL AST (15-37) U/L ALT (14-59) U/L Alkaline Phosphatase (46-116) U/L Total Protein (6.4-8.2) g/dl Albumin (3.4-5.0) g/dl Globulin gm/dL Albumin/Globulin Ratio (1-2) C.difficile 027-[id number] Presumptive negative C. difficile Tox (PCR) Negative 09/02/19 09/02/19 09/02/19 Range/Units 05:17 05:17 13:03 WBC (3.98-10.04) K/mm3 RBC (3.98-5.22) M/mm3 Hgb (11.2-15.7) gm/dl Hct (34.1-44.9) % MCV (79.4-94.8) fl MCH (25.6-32.2) pg MCHC (32.2-35.5) g/dl RDW Std Deviation (36.4-46.3) fL Plt Count (182-369) K/mm3 MPV (9.4-12.3) fl Neut % (Auto) (34.0-71.1) % Lymph % (Auto) (19.3-51.7) % [place] % (Auto) (4.7-12.5) % Eos % (Auto) (0.7-5.8) Baso % (Auto) (0.1-1.2) % Neut # (Auto) (1.56-6.13) K/mm3 Lymph # (Auto) (1.18-3.74) K/mm3 [place] # (Auto) (0.24-0.36) K/mm3 Eos # (Auto) (0.04-0.36) K/mm3 Baso # (Auto) (0.01-0.08) K/mm3 Manual Slide Review APTT 53 H D 83 H D (22-31) SECONDS Puncture Site ABG pH (7.35-7.45) ABG pCO2 (35.0-45.0) mmHg ABG pO2 (80.0-100.0) mmHg ABG HCO3 (22.0-26.0) meq/L ABG O2 Saturation (96.0-97.0) % ABG Base Excess (-2-2.0) Kerwin Test A-a Gradient mmHg O2 Delivery Device Oxygen Flow Rate FiO2 (21.00-100.00) % Blood Gas Comments Sodium 146 H (136-145) mEq/L Potassium 3.4 L (3.5-5.1) mEq/L Chloride 109 H (98-107) mEq/L Carbon Dioxide 25 (21-32) mEq/L Anion Gap 15.4 H (5-15) BUN 25 H (7-18) mg/dL Creatinine 1.3 H (0.55-1.02) mg/dL Est Cr Clr Drug Dosing 26.16 mL/min Estimated GFR (MDRD) 39 (>60) mL/min BUN/Creatinine Ratio 19.2 H (14-18) Glucose 101 (83-115) mg/dL Calcium 8.5 (8.5-10.1) mg/dL Phosphorus 3.2 (2.6-4.7) mg/dL Magnesium 2.0 (1.8-2.4) mg/dl Total Bilirubin 0.7 (0.2-1.0) mg/dL AST 18 (15-37) U/L ALT 15 (14-59) U/L Alkaline Phosphatase 48 (46-116) U/L Total Protein 4.8 L (6.4-8.2) g/dl Albumin 1.7 L (3.4-5.0) g/dl Globulin 3.1 gm/dL Albumin/Globulin Ratio 0.6 L (1-2) C.difficile 027-NAP1-B1 C. difficile Tox (PCR) 09/02/19 Range/Units 13:44 WBC (3.98-10.04) K/mm3 RBC (3.98-5.22) M/mm3 Hgb (11.2-15.7) gm/dl Hct (34.1-44.9) % MCV (79.4-94.8) fl MCH (25.6-32.2) pg MCHC (32.2-35.5) g/dl RDW Std Deviation (36.4-46.3) fL Plt Count (182-369) K/mm3 MPV (9.4-12.3) fl Neut % (Auto) (34.0-71.1) % Lymph % (Auto) (19.3-51.7) % [place] % (Auto) (4.7-12.5) % Eos % (Auto) (0.7-5.8) Baso % (Auto) (0.1-1.2) % Neut # (Auto) (1.56-6.13) K/mm3 Lymph # (Auto) (1.18-3.74) K/mm3 [place] # (Auto) (0.24-0.36) K/mm3 Eos # (Auto) (0.04-0.36) K/mm3 Baso # (Auto) (0.01-0.08) K/mm3 Manual Slide Review APTT (22-31) SECONDS Puncture Site Lt radial ABG pH 7.47 H (7.35-7.45) ABG pCO2 34.2 L (35.0-45.0) mmHg ABG pO2 73.0 L (80.0-100.0) mmHg ABG HCO3 24.7 (22.0-26.0) meq/L ABG O2 Saturation 95.8 L (96.0-97.0) % ABG Base Excess 1.7 (-2-2.0) Kerwin Test A-a Gradient 113 mmHg O2 Delivery Device Nasal cannula Oxygen Flow Rate 3.0 FiO2 32.00 (21.00-100.00) % Blood Gas Comments Sodium (136-145) mEq/L Potassium (3.5-5.1) mEq/L Chloride (98-107) mEq/L Carbon Dioxide (21-32) mEq/L Anion Gap (5-15) BUN (7-18) mg/dL Creatinine (0.55-1.02) mg/dL Est Cr Clr Drug Dosing mL/min Estimated GFR (MDRD) (>60) mL/min BUN/Creatinine Ratio (14-18) Glucose (83-115) mg/dL Calcium (8.5-10.1) mg/dL Phosphorus (2.6-4.7) mg/dL Magnesium (1.8-2.4) mg/dl Total Bilirubin (0.2-1.0) mg/dL AST (15-37) U/L ALT (14-59) U/L Alkaline Phosphatase (46-116) U/L Total Protein (6.4-8.2) g/dl Albumin (3.4-5.0) g/dl Globulin gm/dL Albumin/Globulin Ratio (1-2) C.difficile 027-NAP1-B1 C. difficile Tox (PCR) Gerardo Results Last 24 Hours: Microbiology 09/01/19 19:40 Urine Culture - Preliminary Urine, Catheterized NO GROWTH AFTER 1 DAY Med Orders - Current: Current Medications Albuterol/Ipratropium (Duoneb 3.0-0.5 Mg/3 Ml) 3 ml NEB Q6HRRT [facility] Last Admin: 09/02/19 14:27 Dose: 3 ml Amlodipine Besylate (Norvasc) 10 mg PO DAILY [facility] Last Admin: 09/02/19 08:08 Dose: 10 mg Chlorthalidone (Chlorthalidone) 25 mg PO DAILY [facility] Last Admin: 09/02/19 08:09 Dose: 25 mg Hydralazine HCl (Apresoline) 10 mg IVPUSH Q2H PRN PRN Reason: Systolic >180 / Diastolic >100 Last Admin: 08/31/19 01:25 Dose: 10 mg Piperacillin Sod/Tazobactam (Sod 4.5 gm/ Sodium Chloride) 100 mls @ 25 mls/hr IV Q8H [facility] Last Admin: 09/02/19 13:32 Dose: 25 mls/hr Argatroban 250 mg/ Sodium (Chloride) 252.5 mls @ 9.69 mls/hr IV TITRATE [facility]; Protocol Last Titration: 09/02/19 16:16 Dose: 0.4 mcg/kg/min, 1.93 mls/hr Norepinephrine Bitartrate 4 mg (/ Dextrose/Water) 250 mls @ 7.5 mls/hr IV TITRATE [facility]; Protocol Dextrose/Water (Dextrose 5% In Water) 1,000 mls @ 50 mls/hr IV ASDIRECTED [facility] Last Admin: 09/02/19 13:38 Dose: 50 mls/hr Sodium Chloride (Normal Saline) 100 mls @ 75 mls/hr IV ASDIRECTED [facility] Linezolid 600 mg/ Premix 300 mls @ 300 mls/hr IV Q12H [facility] Last Admin: 09/02/19 07:46 Dose: 300 mls/hr Morphine Sulfate (Morphine) 1 mg IVPUSH Q4H PRN PRN Reason: Pain Last Admin: 09/02/19 08:50 Dose: 1 mg Pantoprazole Sodium (Protonix Iv) 40 mg IVPUSH DAILY [facility] Last Admin: 09/02/19 08:00 Dose: 40 mg Potassium Chloride (Potassium Chloride Solution) 20 meq NGTUBE BID [facility] Last Admin: 09/02/19 08:02 Dose: 20 meq Psyllium Husk (Metamucil Sugar Free) 1 packet PO BID [facility] Last Admin: 09/02/19 11:59 Dose: 1 packet Sodium Chloride (Saline Flush) 10 ml FLUSH ASDIRECTED PRN PRN Reason: Keep Vein Open Last Admin: 09/01/19 18:31 Dose: 10 ml Discontinued Medications Atropine Sulfate (Atropine 0.1 Mg/Ml) 0.5 mg IVPUSH ONETIME ONE Stop: 08/27/19 07:57 Last Admin: 08/27/19 08:09 Dose: 0.5 mg Bumetanide (Bumex) 1 mg IVPUSH ONETIME ONE Stop: 08/25/19 22:49 Last Admin: 08/26/19 00:07 Dose: 1 mg Bumetanide (Bumex) 1 mg IVPUSH BID [facility] Last Admin: 08/28/19 08:06 Dose: 1 mg Dextrose/Water (Dextrose 50% In Water) 25 ml IVPUSH NOW STA Stop: 08/27/19 05:41 Last Admin: 08/27/19 05:47 Dose: 25 ml Enoxaparin Sodium (Lovenox) 70 mg SUBCUT Q24H [facility] Last Admin: 08/28/19 11:48 Dose: 70 mg Ephedrine Sulfate (Ephedrine In Ns) Confirm Administered Dose 25 mg .ROUTE .STK- MED ONE Stop: 08/24/19 21:32 Etomidate (Amidate) 40 mg IVPUSH .STK-MED ONE Stop: 08/24/19 15:01 Fentanyl (Sublimaze) Confirm Administered Dose 250 mcg .ROUTE .STK-MED ONE Stop: 08/24/19 18:10 Furosemide (Lasix) 60 mg IVPUSH NOW ONE Stop: 09/01/19 16:59 Last Admin: 09/01/19 17:15 Dose: 60 mg Furosemide (Lasix) 60 mg IVPUSH ONETIME ONE Stop: 09/02/19 00:01 Last Admin: 09/01/19 23:55 Dose: 60 mg Furosemide (Lasix) 40 mg IVPUSH NOW ONE Stop: 09/02/19 10:49 Last Admin: 09/02/19 11:59 Dose: 40 mg Heparin Sodium (Porcine) (Heparin Sodium) 5,000 units IVPUSH .BOLUS ONE Stop: 08/25/19 13:27 Last Admin: 08/25/19 14:11 Dose: 5,000 units Heparin Sodium (Porcine) (Heparin Lock Flush 100 Units/Ml) Confirm Administered Dose 500 units .ROUTE .STK-MED ONE Stop: 08/25/19 22:38 Last Admin: 08/25/19 23:02 Dose: 500 units Hydralazine HCl (Apresoline) 10 mg IVPUSH ONETIME ONE Stop: 08/29/19 07:47 Last Admin: 08/29/19 08:08 Dose: 10 mg Hydralazine HCl (Apresoline) 10 mg IVPUSH ONETIME ONE Stop: 08/30/19 11:55 Last Admin: 08/30/19 12:03 Dose: 10 mg Hydrocortisone Sodium Succinate (Solu-Cortef) 50 mg IV Q8H [facility] Last Admin: 08/29/19 12:21 Dose: 50 mg Hydromorphone HCl (Dilaudid) 0.5 mg IVPUSH ONETIME ONE Stop: 08/24/19 07:28 Last Admin: 08/24/19 08:15 Dose: 0.5 mg Sodium Chloride (Normal Saline) 1,000 mls @ 1,000 mls/hr IV .BOLUS STA Stop: 08/24/19 08:25 Last Admin: 08/24/19 08:13 Dose: 1,000 mls/hr Cefepime HCl 2 gm/ Premix 50 mls @ 100 mls/hr IV ONETIME ONE Stop: 08/24/19 13:18 Last Admin: 08/24/19 13:19 Dose: 100 mls/hr Lactated Ringer's (Ringers, Lactated) 1,100 mls @ 1,000 mls/hr IV .BOLUS ONE Stop: 08/24/19 14:13 Last Admin: 08/24/19 13:40 Dose: 1,000 mls/hr Levofloxacin/Dextrose 750 mg/ (Premix) 150 mls @ 100 mls/hr IV ONETIME ONE Stop: 08/24/19 15:07 Last Admin: 08/24/19 16:03 Dose: 100 mls/hr Piperacillin Sod/Tazobactam (Sod 4.5 gm/ Sodium Chloride) 100 mls @ 25 mls/hr IV Q8H [facility] Last Admin: 08/26/19 05:13 Dose: 25 mls/hr Vancomycin HCl 1 gm/ Sodium (Chloride) 250 mls @ 250 mls/hr IV ONETIME ONE Stop: 08/24/19 14:37 Last Admin: 08/24/19 16:06 Dose: 250 mls/hr Fentanyl 2,500 mcg/ Sodium (Chloride) 250 mls @ 7.27 mls/hr IV TITRATE [facility]; Protocol Last Titration: 08/28/19 04:23 Dose: 0 mcg/kg/hr, 0 mls/hr Midazolam HCl 50 mg/ Sodium (Chloride) 50 mls @ 0.5 mls/hr IV TITRATE [facility]; Protocol Stop: 08/25/19 15:29 Last Titration: 08/25/19 11:57 Dose: 2 mg/hr, 2 mls/hr Lactated Ringer's (Ringers, Lactated) 1,000 mls @ 125 mls/hr IV ASDIRECTED [facility] Last Admin: 08/25/19 01:00 Dose: 125 mls/hr Norepinephrine Bitartrate 4 mg (/ Dextrose/Water) 250 mls @ 7.5 mls/hr IV TITRATE [facility]; Protocol Last Titration: 08/27/19 07:25 Dose: 0 mcg/min, 0 mls/hr Sodium Chloride (Normal Saline) Confirm Administered Dose 1,000 mls @ as directed .ROUTE .STK-MED ONE Stop: 08/24/19 17:09 Last Admin: 08/24/19 17:16 Dose: 1 mls/hr Lactated Ringer's (Ringers, Lactated) Confirm Administered Dose 1,000 mls @ as directed .ROUTE .STK-MED ONE Stop: 08/24/19 18:34 Lactated Ringer's (Ringers, Lactated) Confirm Administered Dose 1,000 mls @ as directed .ROUTE .STK-MED ONE Stop: 08/24/19 19:10 Lactated Ringer's (Ringers, Lactated) Confirm Administered Dose 1,000 mls @ as directed .ROUTE .STK-MED ONE Stop: 08/24/19 19:46 Lactated Ringer's (Ringers, Lactated) Confirm Administered Dose 1,000 mls @ as directed .ROUTE .STK-MED ONE Stop: 08/24/19 20:40 Lactated Ringer's (Ringers, Lactated) 1,000 mls @ 250 mls/hr IV ASDIRECTED [facility] Last Infusion: 08/26/19 12:28 Dose: Infused Lactated Ringer's (Ringers, Lactated) 1,000 mls @ 999 mls/hr IV .BOLUS ONE Stop: 08/25/19 09:03 Last Admin: 08/25/19 08:10 Dose: 999 mls/hr Heparin Sodium/Dextrose (Heparin 25,000 Units In D5w 500 Ml) 25,000 units in 500 mls @ 26 mls/hr IV TITRATE [facility]; Protocol Last Admin: 08/26/19 08:24 Dose: 22 units/kg/hr, 32.013 mls/hr Dopamine HCl/Dextrose (Dopamine In D5w 400 Mg/250 Ml) 400 mg in 250 mls @ 5.457 mls/hr IV TITRATE [facility]; Protocol Last Titration: 08/26/19 15:20 Dose: 0 mcg/kg/min, 0 mls/hr Lactated Ringer's (Ringers, Lactated) 2,000 mls @ 999 mls/hr IV .BOLUS ONE Stop: 08/25/19 17:52 Last Admin: 08/25/19 16:11 Dose: 999 mls/hr Lactated Ringer's (Ringers, Lactated) 1,000 mls @ 999 mls/hr IV .BOLUS ONE Stop: 08/25/19 17:13 Last Admin: 08/25/19 16:48 Dose: 999 mls/hr Midazolam HCl 50 mg/ Sodium (Chloride) 50 mls @ 0.5 mls/hr IV TITRATE [facility]; Protocol Last Titration: 08/27/19 07:55 Dose: 0 mg/hr, 0 mls/hr Albumin Human (Flexbumin 25%) 25 gm in 100 mls @ 100 mls/hr IV Q1H [facility] Stop: 08/26/19 00:46 Last Admin: 08/26/19 00:07 Dose: 100 mls/hr Albumin Human (Flexbumin 25%) 12.5 gm in 50 mls @ 100 mls/hr IV Q8H [facility] Stop: 08/29/19 07:01 Last Admin: 08/29/19 05:59 Dose: 100 mls/hr Lactated Ringer's (Ringers, Lactated) 1,000 mls @ 200 mls/hr IV ASDIRECTED [facility] Last Infusion: 08/26/19 12:30 Dose: 100 mls/hr Magnesium Sulfate 4 gm/ Premix 100 mls @ 25 mls/hr IV ONETIME ONE Stop: 08/26/19 07:31 Last Admin: 08/26/19 06:48 Dose: 25 mls/hr Piperacillin Sod/Tazobactam (Sod 4.5 gm/ Sodium Chloride) 100 mls @ 25 mls/hr IV Q12H [facility] Stop: 08/29/19 10:00 Last Admin: 08/29/19 07:09 Dose: Not Given Lactated Ringer's (Ringers, Lactated) 1,000 mls @ 100 mls/hr IV ASDIRECTED [facility] Last Admin: 08/26/19 18:09 Dose: 100 mls/hr Dextrose/Water (Dextrose 10% In Water) 1,000 mls @ 25 mls/hr IV ASDIRECTED [facility] Dextrose/Water (Dextrose 10% In Water) 1,000 mls @ 25 mls/hr IV ASDIRECTED [facility] Last Admin: 08/27/19 05:52 Dose: 25 mls/hr Dextrose/Water (Dextrose 10% In Water) Confirm Administered Dose 1,000 mls @ as directed .ROUTE .STK-MED ONE Stop: 08/27/19 05:47 Last Admin: 08/27/19 05:56 Dose: Not Given Potassium Cl/Dextrose/Lact Ringer's (D5 Lr With 20 Meq Kcl) 1,000 mls @ 100 mls /hr IV ASDIRECTED [facility] Last Infusion: 08/28/19 11:57 Dose: 50 mls/hr Potassium Chloride 10 meq/ (Premix) 100 mls @ 100 mls/hr IV Q1H [facility] Stop: 08/27/19 12:59 Last Admin: 08/27/19 12:55 Dose: 100 mls/hr Potassium Chloride 10 meq/ (Premix) 100 mls @ 100 mls/hr IV Q1H [facility] Stop: 08/28/19 15:29 Last Admin: 08/28/19 15:11 Dose: 100 mls/hr Potassium Cl/Dextrose/Lact Ringer's (D5 Lr With 20 Meq Kcl) 1,000 mls @ 50 mls/ hr IV ASDIRECTED [facility] Last Admin: 08/30/19 18:01 Dose: 50 mls/hr Potassium Chloride 10 meq/ (Premix) 100 mls @ 100 mls/hr IV Q1H [facility] Stop: 08/29/19 17:59 Last Admin: 08/29/19 17:47 Dose: 100 mls/hr Magnesium Sulfate 2 gm/ Premix 50 mls @ 25 mls/hr IV 1200,2100 [facility] Stop: 08/29/19 22:59 Last Admin: 08/29/19 20:25 Dose: 25 mls/hr Sodium Chloride (Normal Saline) 1,000 mls @ 999 mls/hr IRR ONETIME ONE Stop: 08/29/19 13:07 Last Admin: 08/29/19 12:52 Dose: 999 mls/hr Sodium Chloride (Normal Saline) 100 mls @ 60 mls/hr IV ASDIRECTED [facility] Stop: 08/30/19 13:00 Potassium Chloride 10 meq/ (Premix) 100 mls @ 100 mls/hr IV Q1H [facility] Stop: 08/31/19 11:29 Last Admin: 08/31/19 11:42 Dose: 100 mls/hr Dextrose/Water (Dextrose 5% In Water) Confirm Administered Dose 250 mls @ as directed .ROUTE .STK-MED ONE Stop: 09/01/19 15:54 Last Admin: 09/01/19 18:13 Dose: Not Given Linezolid 600 mg/ Premix 300 mls @ 300 mls/hr IV Q12H [facility] Last Admin: 09/01/19 19:54 Dose: Not Given Iopamidol (Isovue-370 (76%)) 100 ml IVPUSH ONETIME ONE Stop: 09/01/19 17:31 Last Admin: 09/01/19 17:31 Dose: 100 ml Levothyroxine Sodium (Synthroid) 75 mcg PO DAILY [facility] Morphine Sulfate (Morphine) 1 mg IVPUSH ONETIME ONE Stop: 08/29/19 07:47 Last Admin: 08/29/19 08:09 Dose: 1 mg Non-Formulary Medication (Losartan) 50 mg PO BEDTIME [facility] Norepinephrine Bitartrate (Levophed) Confirm Administered Dose 4 mg .ROUTE .STK- MED ONE Stop: 08/24/19 16:39 Last Admin: 08/24/19 16:47 Dose: Not Given Norepinephrine Bitartrate (Levophed) Confirm Administered Dose 4 mg .ROUTE .STK- MED ONE Stop: 09/01/19 15:54 Last Admin: 09/01/19 18:12 Dose: Not Given Ondansetron HCl (Zofran) 4 mg IVPUSH ONETIME ONE Stop: 08/24/19 07:27 Last Admin: 08/24/19 08:13 Dose: 4 mg Potassium Chloride (Klor-Con M20) 20 meq PO BID [facility] Last Admin: 09/01/19 08:51 Dose: 20 meq Potassium Chloride (Potassium Chloride Solution) 40 meq NGTUBE ONETIME ONE Stop: 09/01/19 12:01 Last Admin: 09/01/19 11:39 Dose: 40 meq Sodium Chloride (Saline Flush) 10 ml FLUSH ONETIME ONE Stop: 08/30/19 09:01 Last Admin: 08/30/19 09:09 Dose: 10 ml Succinylcholine Chloride (Quelicin) 200 mg .ROUTE .STK-MED ONE Stop: 08/24/19 15:01 Vecuronium [place] (Vecuronium) Confirm Administered Dose 10 mg .ROUTE .STK-MED ONE Stop: 08/24/19 20:13 - Exam Quality Assessment: Supplemental Oxygen General: Alert HEENT: Pupils Equal Neck: Supple Lungs: Normal Respiratory Effort, Crackles (Find bibasilar crackles) Cardiovascular: Regular Rate, Regular Rhythm GI/Abdominal Exam: Normal Bowel Sounds, Soft, Tender (Mild diffuse tenderness) Extremities: Other (Diffuse edema in her upper extremities. Lower extremities are much improved likely secondary to SCDs. Overall she does have a significant improvement in her edema.) Skin: Warm, Dry, Intact Psy/Mental Status: Alert Sepsis Event Note - Evaluation Sepsis Screening Result: No Definite Risk - Focused Exam Vital Signs: Vital Signs Temp Resp BP BP Pulse Ox Pulse Ox Pulse Ox 09/02/19 17:37 93 L 09/02/19 15:58 98 09/02/19 15:56 97.5 F 14 120/48 L 98 09/02/19 14:29 99 09/02/19 12:00 97.4 F 12 112/46 L 98 09/02/19 08:48 98 09/02/19 08:32 98 09/02/19 08:08 137/42 L 09/02/19 07:57 97.4 F 15 120/48 L 98 Date Exam was Performed: 09/02/19 Time Exam was Performed: 18:09 - Problem List Review Problem List Initiated/Reviewed/Updated: Yes - My Orders Last 24 Hours: My Active Orders 09/01/19 17:15 Dextrose 5% in Water 1,000 ml IV ASDIRECTED 09/01/19 19:20 Communication Order [RC] STAT 09/01/19 19:21 Blood Culture x2 Reflex Set [OM.PC] Stat 09/01/19 19:40 CULTURE URINE [RM] Routine 09/01/19 19:50 CULTURE BLOOD [BC] Stat 09/01/19 20:00 Linezolid [Zyvox] 600 mg Premix Bag 1 bag IV Q12H 09/01/19 20:20 CULTURE BLOOD [BC] Stat 09/02/19 07:00 Consult to Speech Language Pathology [XEROX MACHINE OPERATOR Evaluation and Treatment] [CONS] Routine 09/02/19 10:54 Aspiration Precautions [RC] Tube Feeding [Enteral Feedings] [RC] Click to Edit 09/02/19 11:00 Psyllium Husk/Aspartame [Metamucil Sugar Free] 1 packet PO BID 09/02/19 13:00 RT Arterial Blood Gases, ABG [RC] ONETIME 09/02/19 20:30 aPTT [PTT,PARTIAL THROMBOPLSTIN TIME] [COAG] Routine 09/03/19 05:11 CBC WITH AUTO DIFF [HEME] AM CMP [COMPREHENSIVE METABOLIC PN,CMP] [CHEM] AM MAGNESIUM [CHEM] AM 09/04/19 05:11 CBC WITH AUTO DIFF [HEME] AM CMP [COMPREHENSIVE METABOLIC PN,CMP] [CHEM] AM MAGNESIUM [CHEM] AM - Plan Plan:: Acute respiratory failure with respiratory alkalosis-improved Patient has significant worsening of respiratory status requiring BiPAP yesterday. It is unknown if she aspirated, but no witnessed apnea or coughing. Patient is severely weak and may not be able to cough. White count increased to 20,000 last night and is still 18,000. Lactic acid was normal. CT did not show specific area of infiltrate but did show bilateral pleural effusions with bibasilar atelectasis. Worsening pulmonary status is likely secondary to pulmonary edema. proBNP over 26,000 increasing white count could be secondary to stress. Respiratory failure and increased white count was likely secondary to volume overload. We will continue antibiotic coverage today and she continues to improve significantly and blood cultures are negative will consider stopping IV antibiotics tomorrow. Plan: Lasix 40 mg twice daily and recheck tomorrow. Add linezolid for gram-positive coverage. Continue Zosyn -day 10 Lasix 60 mg IV now and in 7 hours. Likely will need continued diuretics tomorrow. Blood cultures Change urine catheter C. difficile screen negative Hypernatremia -improved with D5W Patient's sodium has continued to increase since being on tube feeds. We will restart NG tube feeds and decrease D5W as we increase her NG tube feeds. Also, increase free water flushes to 100 mL every 4 hours. With the change in status I am going to hold her tube feedings and restart fluids: D5W at 50 mL/h. Follow CMP daily. 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 Rucker Wound dehiscence Decreased oral intake and complaining of abdominal pain-->Abnormal CT --> surgery consulted--> R hemicolectomy and small bowel resection Central line, arterial line (removed 08/31/2019) and ETT placed (extubated 08/30) Started on norepinephrine with inadequate BP response--> started on dopamine which improved response (off both) CXR consistent with pulmonary edema PLAN - Continue Zosyn -Start on Nasalide - NG tube care - NG at intermittent suction - BiPAP - RT f/u - Suction by nursing -Hold feeds until improvement in hypernatremia -Swallow eval when off BiPAP - Pack abdominal wound BID and as needed - Pain control with PRN morphine -When echo comes back we will determine anticoagulation. Heparin induced thrombocytopenia Admission platelets 341, platelets back up above 100,000 since stopping heparin T score 6, highly likely APTT has been erroneously reported lower than it actually is PLAN - Continue Argatroban, but decrease dose in half to 0.5 mcg/kg/min -Repeat APTT tomorrow morning - PF4 immunoassay ordered Acute kidney failure, improving Chronic kidney disease, stage 3 Lactic acid normal Urine output has increased significantly and improved with Lasix PLAN - Monitor urine output - Renally dosed medications - Avoid nephrotoxic agents as much as possible GERD (gastroesophageal reflux disease) No acute issues PLAN - Scheduled IV Pantoprazole Hypertension BP on admission stable Started dropping perioperatively requiring vasopressors Pressors off since 08/27 Worsening hypertension PLAN - Continue Amlodipine 10 - continue chlorthalidone - PRN Hydralazine Hypothyroidism No acute issues PLAN - Continue home meds once available Vascular dementia [facility] resident Requires 1 assist for bed mobility, transfer, dressing, personal hygiene and bathing 2 assist for ambulation Continent for bowel Hypothermia, resolved Septic shock, resolved Lactic acidosis, resolved Metabolic acidosis, resolved Respiratory alkalosis, resolved PROPHYLAXIS DVT- SCDs GI- pantoprazole CODE STATUS: FULL CODE I spoke with the family on 2 separate occasions, both the son and daughter, and they continue to want full treatment. DISPOSITION: Patient admitted to the ICU for vasopressors and mechanical ventilation. Taken to OR 14 with subsequent bowel resection. Patient's overall prognosis is very poor with CROW score or 32, predicted mortality of 74%; family aware. Will repeat SBT today to evaluate extubation possibility.
[2019-09-03] MEDS: NORMAL SALINE IV SCH (02:05)
[2019-09-03] MEDS: ARGATROBAN IV SCH (02:05)
[2019-09-03] MEDS: Albuterol/Ipratropium 3.0-0.5 MG/3 ML Neb Soln NEB SCH ×4 (02:12→20:21)
[2019-09-03] MEDS: Piperacillin/Tazobactam 4.5 GM in Sodium Chloride 0.9% 100 ML IV SCH (07:04)
[2019-09-03] MEDS: Potassium Chloride 10 MEQ in Premix Bag 1 BAG IV SCH ×4 (09:29→12:50)
[2019-09-03] MEDS: Furosemide 40 MG/4 ML VIAL IVPUSH SCH ×2 (09:30→21:03)
[2019-09-03] MEDS: Pantoprazole 40 MG Vial IVPUSH SCH (09:30)
[2019-09-03] MEDS: amLODIPine 10 MG Tab PO SCH (09:39)
[2019-09-03] MEDS: Potassium Chloride 10% 20 MEQ/15 ML Soln 15 ML UD Cup NGTUBE SCH ×2 (09:39→21:03)
[2019-09-03] MEDS: Psyllium Husk Powder Sugar Free 3.4 GM Packet PO SCH ×2 (09:39→21:03)
[2019-09-03] MEDS: Chlorthalidone 25 MG Tab PO SCH (09:39)
[2019-09-03] MEDS ORDERED: Dextrose 5% in Water 1,000 ML IV SCH (11:00)
[2019-09-03] MEDS: Linezolid 600 MG in Premix Bag 1 BAG IV SCH (12:01)
--- NOTE | 2019-09-03 13:03 | PCM.PN ---
- General Info Date of Service: 09/03/19 Admission Dx/Problem (Free Text): Decreased urine output Norepinephrine drip Fentanyl and versed for sedation LR for fluid repletion Levaquin, vancomycin and Zosyn Subjective Update: Patient had a large amount of residual secondary to her tube feeds. Nursing was unable to increase tube feeds greater than 40 without high amounts of residual and vomiting. This morning there was blood removed out of the NG tube which warranted a stopping anticoagulation. Echocardiogram did come back showing no vegetations. Left ventricular ejection fraction was 45 to 50%. Also noted was global and mildly decreased left ventricular systolic function. Patient was on an ARB prior to admission, but this was held secondary to renal dysfunction. Patient's renal dysfunction did improve, but worsened after IV contrast therefore the addition of an JAIDEN inhibitor or an ARB is not warranted at this time. Hemoglobin was down to 8.7 this morning. Repeat hemoglobin was 9.1. - Review of Systems General: Reports: Weakness HEENT: Reports: No Symptoms Pulmonary: Reports: No Symptoms Cardiovascular: Reports: No Symptoms - Patient Data Vitals - Most Recent: Last Vital Signs Temp 98.1 F 09/03/19 08:00 Pulse 81 09/03/19 04:01 Resp 16 09/03/19 08:00 BP 139/53 L 09/03/19 08:00 Pulse Ox 98 09/03/19 08:19 Weight - Most Recent: 175 lb 6.4 oz I&O - Last 24 Hours: Intake & Output 09/02/19 09/03/19 09/03/19 22:59 06:59 14:59 Intake Total 1328 596 100 Output Total 1945 1390 350 Balance -617 -135 -250 Lab Results Last 24 Hours: Laboratory Results - last 24 hr 09/02/19 09/02/19 09/02/19 Range/Units 13:03 13:44 20:24 WBC (3.98-10.04) K/mm3 RBC (3.98-5.22) M/mm3 Hgb (11.2-15.7) gm/dl Hct (34.1-44.9) % MCV (79.4-94.8) fl MCH (25.6-32.2) pg MCHC (32.2-35.5) g/dl RDW Std Deviation (36.4-46.3) fL Plt Count (182-369) K/mm3 MPV (9.4-12.3) fl Neut % (Auto) (34.0-71.1) % Lymph % (Auto) (19.3-51.7) % [place] % (Auto) (4.7-12.5) % Eos % (Auto) (0.7-5.8) Baso % (Auto) (0.1-1.2) % Neut # (Auto) (1.56-6.13) K/mm3 Lymph # (Auto) (1.18-3.74) K/mm3 [place] # (Auto) (0.24-0.36) K/mm3 Eos # (Auto) (0.04-0.36) K/mm3 Baso # (Auto) (0.01-0.08) K/mm3 Manual Slide Review APTT 83 H D 80 H D (22-31) SECONDS Puncture Site Lt radial ABG pH 7.47 H (7.35-7.45) ABG pCO2 34.2 L (35.0-45.0) mmHg ABG pO2 73.0 L (80.0-100.0) mmHg ABG HCO3 24.7 (22.0-26.0) meq/L ABG O2 Saturation 95.8 L (96.0-97.0) % ABG Base Excess 1.7 (-2-2.0) A-a Gradient 113 mmHg O2 Delivery Device Nasal cannula Oxygen Flow Rate 3.0 FiO2 32.00 (21.00-100.00) % Sodium (136-145) mEq/L Potassium (3.5-5.1) mEq/L Chloride (98-107) mEq/L Carbon Dioxide (21-32) mEq/L Anion Gap (5-15) BUN (7-18) mg/dL Creatinine (0.55-1.02) mg/dL Est Cr Clr Drug Dosing mL/min Estimated GFR (MDRD) (>60) mL/min BUN/Creatinine Ratio (14-18) Glucose (83-115) mg/dL Calcium (8.5-10.1) mg/dL Magnesium (1.8-2.4) mg/dl Total Bilirubin (0.2-1.0) mg/dL AST (15-37) U/L ALT (14-59) U/L Alkaline Phosphatase (46-116) U/L Total Protein (6.4-8.2) g/dl Albumin (3.4-5.0) g/dl Globulin gm/dL Albumin/Globulin Ratio (1-2) 09/03/19 09/03/19 09/03/19 Range/Units 04:45 04:45 04:45 WBC 16.96 H (3.98-10.04) K/mm3 RBC 3.20 L (3.98-5.22) M/mm3 Hgb 8.7 L (11.2-15.7) gm/dl Hct 26.5 L (34.1-44.9) % MCV 82.8 (79.4-94.8) fl MCH 27.2 (25.6-32.2) pg MCHC 32.8 (32.2-35.5) g/dl RDW Std Deviation 71.8 H (36.4-46.3) fL Plt Count 217 (182-369) K/mm3 MPV 11.5 (9.4-12.3) fl Neut % (Auto) 82.5 H (34.0-71.1) % Lymph % (Auto) 10.6 L (19.3-51.7) % [place] % (Auto) 4.3 L (4.7-12.5) % Eos % (Auto) 1.0 (0.7-5.8) Baso % (Auto) 0.2 (0.1-1.2) % Neut # (Auto) 14.00 H (1.56-6.13) K/mm3 Lymph # (Auto) 1.80 (1.18-3.74) K/mm3 [place] # (Auto) 0.73 H (0.24-0.36) K/mm3 Eos # (Auto) 0.17 (0.04-0.36) K/mm3 Baso # (Auto) 0.03 (0.01-0.08) K/mm3 Manual Slide Review Abnormal smear APTT 80 H (22-31) SECONDS Puncture Site ABG pH (7.35-7.45) ABG pCO2 (35.0-45.0) mmHg ABG pO2 (80.0-100.0) mmHg ABG HCO3 (22.0-26.0) meq/L ABG O2 Saturation (96.0-97.0) % ABG Base Excess (-2-2.0) A-a Gradient mmHg O2 Delivery Device Oxygen Flow Rate FiO2 (21.00-100.00) % Sodium 138 (136-145) mEq/L Potassium 3.2 L (3.5-5.1) mEq/L Chloride 102 (98-107) mEq/L Carbon Dioxide 25 (21-32) mEq/L Anion Gap 14.2 (5-15) BUN 21 H (7-18) mg/dL Creatinine 1.3 H (0.55-1.02) mg/dL Est Cr Clr Drug Dosing 26.16 mL/min Estimated GFR (MDRD) 39 (>60) mL/min BUN/Creatinine Ratio 16.2 (14-18) Glucose 107 (83-115) mg/dL Calcium 7.9 L (8.5-10.1) mg/dL Magnesium 1.9 (1.8-2.4) mg/dl Total Bilirubin 0.6 (0.2-1.0) mg/dL AST 20 (15-37) U/L ALT 14 (14-59) U/L Alkaline Phosphatase 47 (46-116) U/L Total Protein 5.1 L (6.4-8.2) g/dl Albumin 1.8 L (3.4-5.0) g/dl Globulin 3.3 gm/dL Albumin/Globulin Ratio 0.6 L (1-2) Gerardo Results Last 24 Hours: Microbiology 09/01/19 19:40 Urine Culture - Preliminary Urine, Catheterized Yeast Isolated 09/01/19 20:20 Aerobic Blood Culture - Preliminary Blood - Venous - Lab Draw NO GROWTH AFTER 1 DAY Anaerobic Blood Culture - Preliminary NO GROWTH AFTER 1 DAY 09/01/19 19:50 Aerobic Blood Culture - Preliminary Blood - Venous NO GROWTH AFTER 1 DAY Anaerobic Blood Culture - Preliminary NO GROWTH AFTER 1 DAY Med Orders - Current: Current Medications Albuterol/Ipratropium (Duoneb 3.0-0.5 Mg/3 Ml) 3 ml NEB Q6HRRT [facility] Last Admin: 09/03/19 08:19 Dose: 3 ml Amlodipine Besylate (Norvasc) 10 mg PO DAILY [facility] Last Admin: 09/03/19 09:39 Dose: Not Given Chlorthalidone (Chlorthalidone) 25 mg PO DAILY [facility] Last Admin: 09/03/19 09:39 Dose: Not Given Furosemide (Lasix) 40 mg IVPUSH BID [facility] Last Admin: 09/03/19 09:30 Dose: 40 mg Hydralazine HCl (Apresoline) 10 mg IVPUSH Q2H PRN PRN Reason: Systolic >180 / Diastolic >100 Last Admin: 08/31/19 01:25 Dose: 10 mg Norepinephrine Bitartrate 4 mg (/ Dextrose/Water) 250 mls @ 7.5 mls/hr IV TITRATE [facility]; Protocol Dextrose/Water (Dextrose 5% In Water) 1,000 mls @ 50 mls/hr IV ASDIRECTED [facility] Last Infusion: 09/02/19 20:45 Dose: 25 mls/hr Morphine Sulfate (Morphine) 1 mg IVPUSH Q4H PRN PRN Reason: Pain Last Admin: 09/02/19 08:50 Dose: 1 mg Pantoprazole Sodium (Protonix Iv) 40 mg IVPUSH DAILY [facility] Last Admin: 09/03/19 09:30 Dose: 40 mg Potassium Chloride (Potassium Chloride Solution) 20 meq NGTUBE BID [facility] Last Admin: 09/03/19 09:39 Dose: Not Given Psyllium Husk (Metamucil Sugar Free) 1 packet PO BID [facility] Last Admin: 09/03/19 09:39 Dose: Not Given Sodium Chloride (Saline Flush) 10 ml FLUSH ASDIRECTED PRN PRN Reason: Keep Vein Open Last Admin: 09/01/19 18:31 Dose: 10 ml Discontinued Medications Atropine Sulfate (Atropine 0.1 Mg/Ml) 0.5 mg IVPUSH ONETIME ONE Stop: 08/27/19 07:57 Last Admin: 08/27/19 08:09 Dose: 0.5 mg Bumetanide (Bumex) 1 mg IVPUSH ONETIME ONE Stop: 08/25/19 22:49 Last Admin: 08/26/19 00:07 Dose: 1 mg Bumetanide (Bumex) 1 mg IVPUSH BID [facility] Last Admin: 08/28/19 08:06 Dose: 1 mg Dextrose/Water (Dextrose 50% In Water) 25 ml IVPUSH NOW STA Stop: 08/27/19 05:41 Last Admin: 08/27/19 05:47 Dose: 25 ml Enoxaparin Sodium (Lovenox) 70 mg SUBCUT Q24H [facility] Last Admin: 08/28/19 11:48 Dose: 70 mg Ephedrine Sulfate (Ephedrine In Ns) Confirm Administered Dose 25 mg .ROUTE .STK- MED ONE Stop: 08/24/19 21:32 Etomidate (Amidate) 40 mg IVPUSH .STK-MED ONE Stop: 08/24/19 15:01 Fentanyl (Sublimaze) Confirm Administered Dose 250 mcg .ROUTE .STK-MED ONE Stop: 08/24/19 18:10 Furosemide (Lasix) 60 mg IVPUSH NOW ONE Stop: 09/01/19 16:59 Last Admin: 09/01/19 17:15 Dose: 60 mg Furosemide (Lasix) 60 mg IVPUSH ONETIME ONE Stop: 09/02/19 00:01 Last Admin: 09/01/19 23:55 Dose: 60 mg Furosemide (Lasix) 40 mg IVPUSH NOW ONE Stop: 09/02/19 10:49 Last Admin: 09/02/19 11:59 Dose: 40 mg Furosemide (Lasix) 40 mg IVPUSH NOW ONE Stop: 09/02/19 18:19 Last Admin: 09/02/19 18:26 Dose: 40 mg Heparin Sodium (Porcine) (Heparin Sodium) 5,000 units IVPUSH .BOLUS ONE Stop: 08/25/19 13:27 Last Admin: 08/25/19 14:11 Dose: 5,000 units Heparin Sodium (Porcine) (Heparin Lock Flush 100 Units/Ml) Confirm Administered Dose 500 units .ROUTE .STK-MED ONE Stop: 08/25/19 22:38 Last Admin: 08/25/19 23:02 Dose: 500 units Hydralazine HCl (Apresoline) 10 mg IVPUSH ONETIME ONE Stop: 08/29/19 07:47 Last Admin: 08/29/19 08:08 Dose: 10 mg Hydralazine HCl (Apresoline) 10 mg IVPUSH ONETIME ONE Stop: 08/30/19 11:55 Last Admin: 08/30/19 12:03 Dose: 10 mg Hydrocortisone Sodium Succinate (Solu-Cortef) 50 mg IV Q8H [facility] Last Admin: 08/29/19 12:21 Dose: 50 mg Hydromorphone HCl (Dilaudid) 0.5 mg IVPUSH ONETIME ONE Stop: 08/24/19 07:28 Last Admin: 08/24/19 08:15 Dose: 0.5 mg Sodium Chloride (Normal Saline) 1,000 mls @ 1,000 mls/hr IV .BOLUS STA Stop: 08/24/19 08:25 Last Admin: 08/24/19 08:13 Dose: 1,000 mls/hr Cefepime HCl 2 gm/ Premix 50 mls @ 100 mls/hr IV ONETIME ONE Stop: 08/24/19 13:18 Last Admin: 08/24/19 13:19 Dose: 100 mls/hr Lactated Ringer's (Ringers, Lactated) 1,100 mls @ 1,000 mls/hr IV .BOLUS ONE Stop: 08/24/19 14:13 Last Admin: 08/24/19 13:40 Dose: 1,000 mls/hr Levofloxacin/Dextrose 750 mg/ (Premix) 150 mls @ 100 mls/hr IV ONETIME ONE Stop: 08/24/19 15:07 Last Admin: 08/24/19 16:03 Dose: 100 mls/hr Piperacillin Sod/Tazobactam (Sod 4.5 gm/ Sodium Chloride) 100 mls @ 25 mls/hr IV Q8H [facility] Last Admin: 08/26/19 05:13 Dose: 25 mls/hr Vancomycin HCl 1 gm/ Sodium (Chloride) 250 mls @ 250 mls/hr IV ONETIME ONE Stop: 08/24/19 14:37 Last Admin: 08/24/19 16:06 Dose: 250 mls/hr Fentanyl 2,500 mcg/ Sodium (Chloride) 250 mls @ 7.27 mls/hr IV TITRATE [facility]; Protocol Last Titration: 08/28/19 04:23 Dose: 0 mcg/kg/hr, 0 mls/hr Midazolam HCl 50 mg/ Sodium (Chloride) 50 mls @ 0.5 mls/hr IV TITRATE [facility]; Protocol Stop: 08/25/19 15:29 Last Titration: 08/25/19 11:57 Dose: 2 mg/hr, 2 mls/hr Lactated Ringer's (Ringers, Lactated) 1,000 mls @ 125 mls/hr IV ASDIRECTED [facility] Last Admin: 08/25/19 01:00 Dose: 125 mls/hr Norepinephrine Bitartrate 4 mg (/ Dextrose/Water) 250 mls @ 7.5 mls/hr IV TITRATE [facility]; Protocol Last Titration: 08/27/19 07:25 Dose: 0 mcg/min, 0 mls/hr Sodium Chloride (Normal Saline) Confirm Administered Dose 1,000 mls @ as directed .ROUTE .[facility]-MED ONE Stop: 08/24/19 17:09 Last Admin: 08/24/19 17:16 Dose: 1 mls/hr Lactated Ringer's (Ringers, Lactated) Confirm Administered Dose 1,000 mls @ as directed .ROUTE .[facility]-MED ONE Stop: 08/24/19 18:34 Lactated Ringer's (Ringers, Lactated) Confirm Administered Dose 1,000 mls @ as directed .ROUTE .[facility]-MED ONE Stop: 08/24/19 19:10 Lactated Ringer's (Ringers, Lactated) Confirm Administered Dose 1,000 mls @ [facility] Stop: 08/24/19 19:46 Lactated Ringer's (Ringers, Lactated) Confirm Administered Dose 1,000 mls @ as directed .ROUTE .[facility]-MED ONE Stop: 08/24/19 20:40 Lactated Ringer's (Ringers, Lactated) 1,000 mls @ 250 mls/hr IV ASDIRECTED [facility] Last Infusion: 08/26/19 12:28 Dose: Infused Lactated Ringer's (Ringers, Lactated) 1,000 mls @ 999 mls/hr IV .BOLUS ONE Stop: 08/25/19 09:03 Last Admin: 08/25/19 08:10 Dose: 999 mls/hr Heparin Sodium/Dextrose (Heparin 25,000 Units In D5w 500 Ml) 25,000 units in 500 mls @ 26 mls/hr IV TITRATE [facility]; Protocol Last Admin: 08/26/19 08:24 Dose: 22 units/kg/hr, 32.013 mls/hr Dopamine HCl/Dextrose (Dopamine In D5w 400 Mg/250 Ml) 400 mg in 250 mls @ 5.457 mls/hr IV TITRATE [facility]; Protocol Last Titration: 08/26/19 15:20 Dose: 0 mcg/kg/min, 0 mls/hr Lactated Ringer's (Ringers, Lactated) 2,000 mls @ 999 mls/hr IV .BOLUS ONE Stop: 08/25/19 17:52 Last Admin: 08/25/19 16:11 Dose: 999 mls/hr Lactated Ringer's (Ringers, Lactated) 1,000 mls @ 999 mls/hr IV .BOLUS ONE Stop: 08/25/19 17:13 Last Admin: 08/25/19 16:48 Dose: 999 mls/hr Midazolam HCl 50 mg/ Sodium (Chloride) 50 mls @ 0.5 mls/hr IV TITRATE [facility]; Protocol Last Titration: 08/27/19 07:55 Dose: 0 mg/hr, 0 mls/hr Albumin Human (Flexbumin 25%) 25 gm in 100 mls @ 100 mls/hr IV Q1H [facility] Stop: 08/26/19 00:46 Last Admin: 08/26/19 00:07 Dose: 100 mls/hr Albumin Human (Flexbumin 25%) 12.5 gm in 50 mls @ 100 mls/hr IV Q8H [facility] Stop: 08/29/19 07:01 Last Admin: 08/29/19 05:59 Dose: 100 mls/hr Lactated Ringer's (Ringers, Lactated) 1,000 mls @ 200 mls/hr IV ASDIRECTED [facility] Last Infusion: 08/26/19 12:30 Dose: 100 mls/hr Magnesium Sulfate 4 gm/ Premix 100 mls @ 25 mls/hr IV ONETIME ONE Stop: 08/26/19 07:31 Last Admin: 08/26/19 06:48 Dose: 25 mls/hr Piperacillin Sod/Tazobactam (Sod 4.5 gm/ Sodium Chloride) 100 mls @ 25 mls/hr IV Q12H [facility] Stop: 08/29/19 10:00 Last Admin: 08/29/19 07:09 Dose: Not Given Lactated Ringer's (Ringers, Lactated) 1,000 mls @ 100 mls/hr IV ASDIRECTED [facility] Last Admin: 08/26/19 18:09 Dose: 100 mls/hr Dextrose/Water (Dextrose 10% In Water) 1,000 mls @ 25 mls/hr IV ASDIRECTED [facility] Dextrose/Water (Dextrose 10% In Water) 1,000 mls @ 25 mls/hr IV ASDIRECTED [facility] Last Admin: 08/27/19 05:52 Dose: 25 mls/hr Dextrose/Water (Dextrose 10% In Water) Confirm Administered Dose 1,000 mls @ as directed .ROUTE .STK-MED ONE Stop: 08/27/19 05:47 Last Admin: 08/27/19 05:56 Dose: Not Given Potassium Cl/Dextrose/Lact Ringer's (D5 Lr With 20 Meq Kcl) 1,000 mls @ 100 mls /hr IV ASDIRECTED [facility] Last Infusion: 08/28/19 11:57 Dose: 50 mls/hr Potassium Chloride 10 meq/ (Premix) 100 mls @ 100 mls/hr IV Q1H [facility] Stop: 08/27/19 12:59 Last Admin: 08/27/19 12:55 Dose: 100 mls/hr Potassium Chloride 10 meq/ (Premix) 100 mls @ 100 mls/hr IV Q1H [facility] Stop: 08/28/19 15:29 Last Admin: 08/28/19 15:11 Dose: 100 mls/hr Potassium Cl/Dextrose/Lact Ringer's (D5 Lr With 20 Meq Kcl) 1,000 mls @ 50 mls/ hr IV ASDIRECTED [facility] Last Admin: 08/30/19 18:01 Dose: 50 mls/hr Piperacillin Sod/Tazobactam (Sod 4.5 gm/ Sodium Chloride) 100 mls @ 25 mls/hr IV Q8H [facility] Last Admin: 09/03/19 07:04 Dose: 25 mls/hr Potassium Chloride 10 meq/ (Premix) 100 mls @ 100 mls/hr IV Q1H [facility] Stop: 08/29/19 17:59 Last Admin: 08/29/19 17:47 Dose: 100 mls/hr Magnesium Sulfate 2 gm/ Premix 50 mls @ 25 mls/hr IV 1200,2100 [facility] Stop: 08/29/19 22:59 Last Admin: 08/29/19 20:25 Dose: 25 mls/hr Sodium Chloride (Normal Saline) 1,000 mls @ 999 mls/hr IRR ONETIME ONE Stop: 08/29/19 13:07 Last Admin: 08/29/19 12:52 Dose: 999 mls/hr Argatroban 250 mg/ Sodium (Chloride) 252.5 mls @ 9.69 mls/hr IV TITRATE [facility]; Protocol Last Titration: 09/03/19 08:55 Dose: 0 mcg/kg/min, 0 mls/hr Sodium Chloride (Normal Saline) 100 mls @ 60 mls/hr IV ASDIRECTED [facility] Stop: 08/30/19 13:00 Potassium Chloride 10 meq/ (Premix) 100 mls @ 100 mls/hr IV Q1H [facility] Stop: 08/31/19 11:29 Last Admin: 08/31/19 11:42 Dose: 100 mls/hr Dextrose/Water (Dextrose 5% In Water) Confirm Administered Dose 250 mls @ as directed .ROUTE .STK-MED ONE Stop: 09/01/19 15:54 Last Admin: 09/01/19 18:13 Dose: Not Given Sodium Chloride (Normal Saline) 100 mls @ 75 mls/hr IV ASDIRECTED [facility] Linezolid 600 mg/ Premix 300 mls @ 300 mls/hr IV Q12H [facility] Last Admin: 09/01/19 19:54 Dose: Not Given Linezolid 600 mg/ Premix 300 mls @ 300 mls/hr IV Q12H [facility] Last Admin: 09/03/19 12:01 Dose: Not Given Potassium Chloride 10 meq/ (Premix) 100 mls @ 100 mls/hr IV Q1H [facility] Stop: 09/03/19 12:14 Last Admin: 09/03/19 12:50 Dose: 100 mls/hr Iopamidol (Isovue-370 (76%)) 100 ml IVPUSH ONETIME ONE Stop: 09/01/19 17:31 Last Admin: 09/01/19 17:31 Dose: 100 ml Levothyroxine Sodium (Synthroid) 75 mcg PO DAILY [facility] Morphine Sulfate (Morphine) 1 mg IVPUSH ONETIME ONE Stop: 08/29/19 07:47 Last Admin: 08/29/19 08:09 Dose: 1 mg Non-Formulary Medication (Losartan) 50 mg PO BEDTIME [facility] Norepinephrine Bitartrate (Levophed) Confirm Administered Dose 4 mg .ROUTE .STK- MED ONE Stop: 08/24/19 16:39 Last Admin: 08/24/19 16:47 Dose: Not Given Norepinephrine Bitartrate (Levophed) Confirm Administered Dose 4 mg .ROUTE .STK- MED ONE Stop: 09/01/19 15:54 Last Admin: 09/01/19 18:12 Dose: Not Given Ondansetron HCl (Zofran) 4 mg IVPUSH ONETIME ONE Stop: 08/24/19 07:27 Last Admin: 08/24/19 08:13 Dose: 4 mg Potassium Chloride (Klor-Con M20) 20 meq PO BID [facility] Last Admin: 09/01/19 08:51 Dose: 20 meq Potassium Chloride (Potassium Chloride Solution) 40 meq NGTUBE ONETIME ONE Stop: 09/01/19 12:01 Last Admin: 09/01/19 11:39 Dose: 40 meq Sodium Chloride (Saline Flush) 10 ml FLUSH ONETIME ONE Stop: 08/30/19 09:01 Last Admin: 08/30/19 09:09 Dose: 10 ml Succinylcholine Chloride (Quelicin) 200 mg .ROUTE .STK-MED ONE Stop: 08/24/19 15:01 Vecuronium Snook (Vecuronium) Confirm Administered Dose 10 mg .ROUTE .STK-MED ONE Stop: 08/24/19 20:13 - Exam General: Alert HEENT: Pupils Equal, EOMI, Mucous Membr. Moist/Blanche Neck: Supple Lungs: Clear to Auscultation, Normal Respiratory Effort Cardiovascular: Regular Rate, Regular Rhythm GI/Abdominal Exam: Normal Bowel Sounds, Soft, No Distention, Tender (mild), Other. No: Guarding, Rigid, Rebound Extremities: Normal Inspection, Pedal Edema (1+), Other (1-2+ edema in her arms and hands.) Skin: Warm, Dry, Intact Psy/Mental Status: Alert Sepsis Event Note - Evaluation Sepsis Screening Result: No Definite Risk - Focused Exam Vital Signs: Vital Signs Temp Pulse Resp BP BP Pulse Ox Pulse Ox 09/03/19 08:19 98 09/03/19 08:00 98.1 F 16 139/53 L 98 09/03/19 04:01 81 16 135/53 L 96 09/03/19 04:00 84 18 95 09/03/19 03:45 78 16 97 09/03/19 03:30 84 18 97 09/03/19 03:15 78 16 97 09/03/19 03:00 85 12 97 09/03/19 02:14 98 Date Exam was Performed: 12/24/19 Time Exam was Performed: 15:12 - Problem List Review Problem List Initiated/Reviewed/Updated: Yes - My Orders Last 24 Hours: My Active Orders 09/02/19 13:00 RT Arterial Blood Gases, ABG [RC] ONETIME 09/03/19 04:45 APTT [REF] Routine 09/03/19 09:00 Furosemide [Lasix] 40 mg IVPUSH BID 09/03/19 Lunch NPO [Nothing Per Oral Diet] [DIET] 09/04/19 05:11 CBC WITH AUTO DIFF [HEME] AM CMP [COMPREHENSIVE METABOLIC PN,CMP] [CHEM] AM MAGNESIUM [CHEM] AM - Plan Plan:: Acute respiratory failure with respiratory alkalosis-improved Patient has significant worsening of respiratory status requiring BiPAP yesterday. It is unknown if she aspirated, but no witnessed apnea or coughing. Patient is severely weak and may not be able to cough. White count increased to 20,000 last night and is still 18,000. Lactic acid was normal. CT did not show specific area of infiltrate but did show bilateral pleural effusions with bibasilar atelectasis. Worsening pulmonary status is likely secondary to pulmonary edema. proBNP over 26,000 increasing white count could be secondary to stress. Respiratory failure and increased white count was likely secondary to volume overload. We will continue antibiotic coverage today and she continues to improve significantly and blood cultures are negative will consider stopping IV antibiotics tomorrow. Plan: Lasix 40 mg twice daily and recheck tomorrow. Stop antibiotics Likely will need continued diuretics but may need to decrease dose Blood cultures -negative after 24 hours Urine culture positive for yeast C. difficile screen negative Congestive heart failure exacerbation -improved Patient has had a significant improvement in her CHF exacerbation. Her oxygen requirements have gone down greatly and she is on 2 L nasal cannula. She had another 2 pound weight loss overnight. Echocardiogram 09/02/2019 1. Left ventricular ejection fraction by visual estimation is 45 to 50%. 2. Global and mildly decreased left ventricular systolic function. 3. Normal right ventricular systolic function. 4. There is mild aortic valve sclerosis without stenosis. 5. Mild aortic valve regurgitation. 6. Mild mitral valve regurgitation. 7. Mild tricuspid valve regurgitation. 8. No vegetations identified. Hypernatremia -resolved Patient's sodium has continued to increase since being on tube feeds. We will restart NG tube feeds and decrease D5W as we increase her NG tube feeds. Also, increase free water flushes to 100 mL every 4 hours. Change IV fluids to D5 half-normal saline at 50 mL/h until tube feeds are restarted. Follow CMP daily. 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 Rucker Wound dehiscence Decreased oral intake and complaining of abdominal pain-->Abnormal CT --> surgery consulted--> R hemicolectomy and small bowel resection Central line, arterial line (removed 08/31/2019) and ETT placed (extubated 08/30) Started on norepinephrine with inadequate BP response--> started on dopamine which improved response (off both) CXR consistent with pulmonary edema on 09/01/2019 PLAN -Stop Zosyn -Start on Nasalide - NG tube care - NG at intermittent suction - BiPAP - RT f/u - Suction by nursing -Restart NG tube feeds at 20 mL/h tonight and increase slowly. -Swallow eval - Pack abdominal wound BID and as needed - Pain control with PRN morphine -Stop argatroban and start low-dose baby aspirin. Heparin induced thrombocytopenia Admission platelets 341, platelets back up above 100,000 since stopping heparin T score 6, highly likely APTT has been erroneously reported lower than it actually is PLAN -Stop argatroban because no numbness seen on echo and CT. -Repeat APTT tomorrow morning - PF4 immunoassay ordered Acute kidney failure, improving Chronic kidney disease, stage 3 Lactic acid normal Urine output has increased significantly and improved with Lasix Creatinine slightly worsened to 1.3. PLAN - Monitor urine output - Renally dosed medications - Avoid nephrotoxic agents as much as possible -Add back losartan when kidney function improves GERD (gastroesophageal reflux disease) No acute issues PLAN - Scheduled IV Pantoprazole Hypertension BP on admission stable Started dropping perioperatively requiring vasopressors Pressors off since 08/27 Worsening hypertension PLAN - Continue Amlodipine 10 - continue chlorthalidone - PRN Hydralazine -When renal function improves will add back her losartan at 50 mg. Hypothyroidism No acute issues PLAN - Continue home meds Vascular dementia assisted resident Requires 1 assist for bed mobility, transfer, dressing, personal hygiene and bathing 2 assist for ambulation Continent for bowel Hypothermia, resolved Septic shock, resolved Lactic acidosis, resolved Metabolic acidosis, resolved Respiratory alkalosis, resolved PROPHYLAXIS DVT- SCDs GI- pantoprazole CODE STATUS: FULL CODE I spoke with the family on 2 separate occasions, both the son and daughter, and they continue to want full treatment. DISPOSITION: Patient admitted to the ICU for vasopressors and mechanical ventilation. Taken to OR 14 with subsequent bowel resection. Patient's overall prognosis is very poor with [place] score or 32, predicted mortality of 74%; family aware. Patient currently stable and awaiting placement at [facility]
--- NOTE | 2019-09-03 14:05 | PCM.SURGPN ---
- General Info Date of Service: 09/03/19 POD#: 9 Post-Op Diagnosis: Bowel necrosis, PNA, UTI Functional Status: Reports: Pain Controlled - Patient Data Vitals - Most Recent: Last Vital Signs Temp 98.3 F 09/03/19 12:00 Pulse 81 09/03/19 04:01 Resp 18 09/03/19 12:00 BP 133/54 L 09/03/19 12:00 Pulse Ox 95 09/03/19 12:00 Weight - Most Recent: 79.56 kg I&O - Last 24 Hours: Intake & Output 09/02/19 09/03/19 09/03/19 22:59 06:59 14:59 Intake Total 1328 596 100 Output Total 1943 1390 1400 Balance -241 -705 -7317 Lab Results Last 24 Hrs: Laboratory Results - last 24 hr 09/02/19 09/02/19 09/03/19 Range/Units 13:03 20:24 04:45 WBC 16.96 H (3.98-10.04) K/mm3 RBC 3.20 L (3.98-5.22) M/mm3 Hgb 8.7 L (11.2-15.7) gm/dl Hct 26.5 L (34.1-44.9) % MCV 82.8 (79.4-94.8) fl MCH 27.2 (25.6-32.2) pg MCHC 32.8 (32.2-35.5) g/dl RDW Std Deviation 71.8 H (36.4-46.3) fL Plt Count 217 (182-369) K/mm3 MPV 11.5 (9.4-12.3) fl Neut % (Auto) 82.5 H (34.0-71.1) % Lymph % (Auto) 10.6 L (19.3-51.7) % Wheeler % (Auto) 4.3 L (4.7-12.5) % Eos % (Auto) 1.0 (0.7-5.8) Baso % (Auto) 0.2 (0.1-1.2) % Neut # (Auto) 14.00 H (1.56-6.13) K/mm3 Lymph # (Auto) 1.80 (1.18-3.74) K/mm3 Wheeler # (Auto) 0.73 H (0.24-0.36) K/mm3 Eos # (Auto) 0.17 (0.04-0.36) K/mm3 Baso # (Auto) 0.03 (0.01-0.08) K/mm3 Manual Slide Review Abnormal smear APTT 83 H D 80 H D (22-31) SECONDS Sodium (136-145) mEq/L Potassium (3.5-5.1) mEq/L Chloride (98-107) mEq/L Carbon Dioxide (21-32) mEq/L Anion Gap (5-15) BUN (7-18) mg/dL Creatinine (0.55-1.02) mg/dL Est Cr Clr Drug Dosing mL/min Estimated GFR (MDRD) (>60) mL/min BUN/Creatinine Ratio (14-18) Glucose (83-115) mg/dL Calcium (8.5-10.1) mg/dL Magnesium (1.8-2.4) mg/dl Total Bilirubin (0.2-1.0) mg/dL AST (15-37) U/L ALT (14-59) U/L Alkaline Phosphatase (46-116) U/L Total Protein (6.4-8.2) g/dl Albumin (3.4-5.0) g/dl Globulin gm/dL Albumin/Globulin Ratio (1-2) 09/03/19 09/03/19 09/03/19 Range/Units 04:45 04:45 13:00 WBC (3.98-10.04) K/mm3 RBC (3.98-5.22) M/mm3 Hgb 9.1 L (11.2-15.7) gm/dl Hct 27.7 L (34.1-44.9) % MCV (79.4-94.8) fl MCH (25.6-32.2) pg MCHC (32.2-35.5) g/dl RDW Std Deviation (36.4-46.3) fL Plt Count (182-369) K/mm3 MPV (9.4-12.3) fl Neut % (Auto) (34.0-71.1) % Lymph % (Auto) (19.3-51.7) % Wheeler % (Auto) (4.7-12.5) % Eos % (Auto) (0.7-5.8) Baso % (Auto) (0.1-1.2) % Neut # (Auto) (1.56-6.13) K/mm3 Lymph # (Auto) (1.18-3.74) K/mm3 Wheeler # (Auto) (0.24-0.36) K/mm3 Eos # (Auto) (0.04-0.36) K/mm3 Baso # (Auto) (0.01-0.08) K/mm3 Manual Slide Review APTT 80 H (22-31) SECONDS Sodium 138 (136-145) mEq/L Potassium 3.2 L (3.5-5.1) mEq/L Chloride 102 (98-107) mEq/L Carbon Dioxide 25 (21-32) mEq/L Anion Gap 14.2 (5-15) BUN 21 H (7-18) mg/dL Creatinine 1.3 H (0.55-1.02) mg/dL Est Cr Clr Drug Dosing 26.16 mL/min Estimated GFR (MDRD) 39 (>60) mL/min BUN/Creatinine Ratio 16.2 (14-18) Glucose 107 (83-115) mg/dL Calcium 7.9 L (8.5-10.1) mg/dL Magnesium 1.9 (1.8-2.4) mg/dl Total Bilirubin 0.6 (0.2-1.0) mg/dL AST 20 (15-37) U/L ALT 14 (14-59) U/L Alkaline Phosphatase 47 (46-116) U/L Total Protein 5.1 L (6.4-8.2) g/dl Albumin 1.8 L (3.4-5.0) g/dl Globulin 3.3 gm/dL Albumin/Globulin Ratio 0.6 L (1-2) Gerardo Results Last 24 Hrs: Microbiology 09/01/19 19:40 Urine Culture - Preliminary Urine, Catheterized Yeast Isolated 09/01/19 20:20 Aerobic Blood Culture - Preliminary Blood - Venous - Lab Draw NO GROWTH AFTER 1 DAY Anaerobic Blood Culture - Preliminary NO GROWTH AFTER 1 DAY 09/01/19 19:50 Aerobic Blood Culture - Preliminary Blood - Venous NO GROWTH AFTER 1 DAY Anaerobic Blood Culture - Preliminary NO GROWTH AFTER 1 DAY Med Orders - Current: Current Medications Albuterol/Ipratropium (Duoneb 3.0-0.5 Mg/3 Ml) 3 ml NEB Q6HRRT [facility] Last Admin: 09/03/19 08:19 Dose: 3 ml Amlodipine Besylate (Norvasc) 10 mg PO DAILY [facility] Last Admin: 09/03/19 09:39 Dose: Not Given Chlorthalidone (Chlorthalidone) 25 mg PO DAILY [facility] Last Admin: 09/03/19 09:39 Dose: Not Given Furosemide (Lasix) 40 mg IVPUSH BID [facility] Last Admin: 09/03/19 09:30 Dose: 40 mg Hydralazine HCl (Apresoline) 10 mg IVPUSH Q2H PRN PRN Reason: Systolic >180 / Diastolic >100 Last Admin: 08/31/19 01:25 Dose: 10 mg Norepinephrine Bitartrate 4 mg (/ Dextrose/Water) 250 mls @ 7.5 mls/hr IV TITRATE [facility]; Protocol Dextrose/Water (Dextrose 5% In Water) 1,000 mls @ 50 mls/hr IV ASDIRECTED [facility] Morphine Sulfate (Morphine) 1 mg IVPUSH Q4H PRN PRN Reason: Pain Last Admin: 09/02/19 08:50 Dose: 1 mg Pantoprazole Sodium (Protonix Iv) 40 mg IVPUSH DAILY [facility] Last Admin: 09/03/19 09:30 Dose: 40 mg Potassium Chloride (Potassium Chloride Solution) 20 meq NGTUBE BID [facility] Last Admin: 09/03/19 09:39 Dose: Not Given Psyllium Husk (Metamucil Sugar Free) 1 packet PO BID [facility] Last Admin: 09/03/19 09:39 Dose: Not Given Sodium Chloride (Saline Flush) 10 ml FLUSH ASDIRECTED PRN PRN Reason: Keep Vein Open Last Admin: 09/01/19 18:31 Dose: 10 ml Discontinued Medications Atropine Sulfate (Atropine 0.1 Mg/Ml) 0.5 mg IVPUSH ONETIME ONE Stop: 08/27/19 07:57 Last Admin: 08/27/19 08:09 Dose: 0.5 mg Bumetanide (Bumex) 1 mg IVPUSH ONETIME ONE Stop: 08/25/19 22:49 Last Admin: 08/26/19 00:07 Dose: 1 mg Bumetanide (Bumex) 1 mg IVPUSH BID [facility] Last Admin: 08/28/19 08:06 Dose: 1 mg Dextrose/Water (Dextrose 50% In Water) 25 ml IVPUSH NOW STA Stop: 08/27/19 05:41 Last Admin: 08/27/19 05:47 Dose: 25 ml Enoxaparin Sodium (Lovenox) 70 mg SUBCUT Q24H [facility] Last Admin: 08/28/19 11:48 Dose: 70 mg Ephedrine Sulfate (Ephedrine In Ns) Confirm Administered Dose 25 mg .ROUTE .STK- MED ONE Stop: 08/24/19 21:32 Etomidate (Amidate) 40 mg IVPUSH .STK-MED ONE Stop: 08/24/19 15:01 Fentanyl (Sublimaze) Confirm Administered Dose 250 mcg .ROUTE .STK-MED ONE Stop: 08/24/19 18:10 Furosemide (Lasix) 60 mg IVPUSH NOW ONE Stop: 09/01/19 16:59 Last Admin: 09/01/19 17:15 Dose: 60 mg Furosemide (Lasix) 60 mg IVPUSH ONETIME ONE Stop: 09/02/19 00:01 Last Admin: 09/01/19 23:55 Dose: 60 mg Furosemide (Lasix) 40 mg IVPUSH NOW ONE Stop: 09/02/19 10:49 Last Admin: 09/02/19 11:59 Dose: 40 mg Furosemide (Lasix) 40 mg IVPUSH NOW ONE Stop: 09/02/19 18:19 Last Admin: 09/02/19 18:26 Dose: 40 mg Heparin Sodium (Porcine) (Heparin Sodium) 5,000 units IVPUSH .BOLUS ONE Stop: 08/25/19 13:27 Last Admin: 08/25/19 14:11 Dose: 5,000 units Heparin Sodium (Porcine) (Heparin Lock Flush 100 Units/Ml) Confirm Administered Dose 500 units .ROUTE .STK-MED ONE Stop: 08/25/19 22:38 Last Admin: 08/25/19 23:02 Dose: 500 units Hydralazine HCl (Apresoline) 10 mg IVPUSH ONETIME ONE Stop: 08/29/19 07:47 Last Admin: 08/29/19 08:08 Dose: 10 mg Hydralazine HCl (Apresoline) 10 mg IVPUSH ONETIME ONE Stop: 08/30/19 11:55 Last Admin: 08/30/19 12:03 Dose: 10 mg Hydrocortisone Sodium Succinate (Solu-Cortef) 50 mg IV Q8H [facility] Last Admin: 08/29/19 12:21 Dose: 50 mg Hydromorphone HCl (Dilaudid) 0.5 mg IVPUSH ONETIME ONE Stop: 08/24/19 07:28 Last Admin: 08/24/19 08:15 Dose: 0.5 mg Sodium Chloride (Normal Saline) 1,000 mls @ 1,000 mls/hr IV .BOLUS STA Stop: 08/24/19 08:25 Last Admin: 08/24/19 08:13 Dose: 1,000 mls/hr Cefepime HCl 2 gm/ Premix 50 mls @ 100 mls/hr IV ONETIME ONE Stop: 08/24/19 13:18 Last Admin: 08/24/19 13:19 Dose: 100 mls/hr Lactated Ringer's (Ringers, Lactated) 1,100 mls @ 1,000 mls/hr IV .BOLUS ONE Stop: 08/24/19 14:13 Last Admin: 08/24/19 13:40 Dose: 1,000 mls/hr Levofloxacin/Dextrose 750 mg/ (Premix) 150 mls @ 100 mls/hr IV ONETIME ONE Stop: 08/24/19 15:07 Last Admin: 08/24/19 16:03 Dose: 100 mls/hr Piperacillin Sod/Tazobactam (Sod 4.5 gm/ Sodium Chloride) 100 mls @ 25 mls/hr IV Q8H [facility] Last Admin: 08/26/19 05:13 Dose: 25 mls/hr Vancomycin HCl 1 gm/ Sodium (Chloride) 250 mls @ 250 mls/hr IV ONETIME ONE Stop: 08/24/19 14:37 Last Admin: 08/24/19 16:06 Dose: 250 mls/hr Fentanyl 2,500 mcg/ Sodium (Chloride) 250 mls @ 7.27 mls/hr IV TITRATE [facility]; Protocol Last Titration: 08/28/19 04:23 Dose: 0 mcg/kg/hr, 0 mls/hr Midazolam HCl 50 mg/ Sodium (Chloride) 50 mls @ 0.5 mls/hr IV TITRATE [facility]; Protocol Stop: 08/25/19 15:29 Last Titration: 08/25/19 11:57 Dose: 2 mg/hr, 2 mls/hr Lactated Ringer's (Ringers, Lactated) 1,000 mls @ 125 mls/hr IV ASDIRECTED [facility] Last Admin: 08/25/19 01:00 Dose: 125 mls/hr Norepinephrine Bitartrate 4 mg (/ Dextrose/Water) 250 mls @ 7.5 mls/hr IV TITRATE [facility]; Protocol Last Titration: 08/27/19 07:25 Dose: 0 mcg/min, 0 mls/hr Sodium Chloride (Normal Saline) Confirm Administered Dose 1,000 mls @ as directed .ROUTE .STK-MED ONE Stop: 08/24/19 17:09 Last Admin: 08/24/19 17:16 Dose: 1 mls/hr Lactated Ringer's (Ringers, Lactated) Confirm Administered Dose 1,000 mls @ as directed .ROUTE .STK-MED ONE Stop: 08/24/19 18:34 Lactated Ringer's (Ringers, Lactated) Confirm Administered Dose 1,000 mls @ as directed .ROUTE .STK-MED ONE Stop: 08/24/19 19:10 Lactated Ringer's (Ringers, Lactated) Confirm Administered Dose 1,000 mls @ as directed .ROUTE .[facility]-MED ONE Stop: 08/24/19 19:46 Lactated Ringer's (Ringers, Lactated) Confirm Administered Dose 1,000 mls @ as directed .ROUTE .STK-MED ONE Stop: 08/24/19 20:40 Lactated Ringer's (Ringers, Lactated) 1,000 mls @ 250 mls/hr IV ASDIRECTED [facility] Last Infusion: 08/26/19 12:28 Dose: Infused Lactated Ringer's (Ringers, Lactated) 1,000 mls @ 999 mls/hr IV .BOLUS ONE Stop: 08/25/19 09:03 Last Admin: 08/25/19 08:10 Dose: 999 mls/hr Heparin Sodium/Dextrose (Heparin 25,000 Units In D5w 500 Ml) 25,000 units in 500 mls @ 26 mls/hr IV TITRATE [facility]; Protocol Last Admin: 08/26/19 08:24 Dose: 22 units/kg/hr, 32.013 mls/hr Dopamine HCl/Dextrose (Dopamine In D5w 400 Mg/250 Ml) 400 mg in 250 mls @ 5.457 mls/hr IV TITRATE [facility]; Protocol Last Titration: 08/26/19 15:20 Dose: 0 mcg/kg/min, 0 mls/hr Lactated Ringer's (Ringers, Lactated) 2,000 mls @ 999 mls/hr IV .BOLUS ONE Stop: 08/25/19 17:52 Last Admin: 08/25/19 16:11 Dose: 999 mls/hr Lactated Ringer's (Ringers, Lactated) 1,000 mls @ 999 mls/hr IV .BOLUS ONE Stop: 08/25/19 17:13 Last Admin: 08/25/19 16:48 Dose: 999 mls/hr Midazolam HCl 50 mg/ Sodium (Chloride) 50 mls @ 0.5 mls/hr IV TITRATE [facility]; Protocol Last Titration: 08/27/19 07:55 Dose: 0 mg/hr, 0 mls/hr Albumin Human (Flexbumin 25%) 25 gm in 100 mls @ 100 mls/hr IV Q1H [facility] Stop: 08/26/19 00:46 Last Admin: 08/26/19 00:07 Dose: 100 mls/hr Albumin Human (Flexbumin 25%) 12.5 gm in 50 mls @ 100 mls/hr IV Q8H [facility] Stop: 08/29/19 07:01 Last Admin: 08/29/19 05:59 Dose: 100 mls/hr Lactated Ringer's (Ringers, Lactated) 1,000 mls @ 200 mls/hr IV ASDIRECTED [facility] Last Infusion: 08/26/19 12:30 Dose: 100 mls/hr Magnesium Sulfate 4 gm/ Premix 100 mls @ 25 mls/hr IV ONETIME ONE Stop: 08/26/19 07:31 Last Admin: 08/26/19 06:48 Dose: 25 mls/hr Piperacillin Sod/Tazobactam (Sod 4.5 gm/ Sodium Chloride) 100 mls @ 25 mls/hr IV Q12H [facility] Stop: 08/29/19 10:00 Last Admin: 08/29/19 07:09 Dose: Not Given Lactated Ringer's (Ringers, Lactated) 1,000 mls @ 100 mls/hr IV ASDIRECTED [facility] Last Admin: 08/26/19 18:09 Dose: 100 mls/hr Dextrose/Water (Dextrose 10% In Water) 1,000 mls @ 25 mls/hr IV ASDIRECTED [facility] Dextrose/Water (Dextrose 10% In Water) 1,000 mls @ 25 mls/hr IV ASDIRECTED [facility] Last Admin: 08/27/19 05:52 Dose: 25 mls/hr Dextrose/Water (Dextrose 10% In Water) Confirm Administered Dose 1,000 mls @ as directed .ROUTE .K-MED ONE Stop: 08/27/19 05:47 Last Admin: 08/27/19 05:56 Dose: Not Given Potassium Cl/Dextrose/Lact Ringer's (D5 Lr With 20 Meq Kcl) 1,000 mls @ 100 mls /hr IV ASDIRECTED [facility] Last Infusion: 08/28/19 11:57 Dose: 50 mls/hr Potassium Chloride 10 meq/ (Premix) 100 mls @ 100 mls/hr IV Q1H [facility] Stop: 08/27/19 12:59 Last Admin: 08/27/19 12:55 Dose: 100 mls/hr Potassium Chloride 10 meq/ (Premix) 100 mls @ 100 mls/hr IV Q1H [facility] Stop: 08/28/19 15:29 Last Admin: 08/28/19 15:11 Dose: 100 mls/hr Potassium Cl/Dextrose/Lact Ringer's (D5 Lr With 20 Meq Kcl) 1,000 mls @ 50 mls/ hr IV ASDIRECTED [facility] Last Admin: 08/30/19 18:01 Dose: 50 mls/hr Piperacillin Sod/Tazobactam (Sod 4.5 gm/ Sodium Chloride) 100 mls @ 25 mls/hr IV Q8H [facility] Last Admin: 09/03/19 07:04 Dose: 25 mls/hr Potassium Chloride 10 meq/ (Premix) 100 mls @ 100 mls/hr IV Q1H [facility] Stop: 08/29/19 17:59 Last Admin: 08/29/19 17:47 Dose: 100 mls/hr Magnesium Sulfate 2 gm/ Premix 50 mls @ 25 mls/hr IV 1200,2100 [facility] Stop: 08/29/19 22:59 Last Admin: 08/29/19 20:25 Dose: 25 mls/hr Sodium Chloride (Normal Saline) 1,000 mls @ 999 mls/hr IRR ONETIME ONE Stop: 08/29/19 13:07 Last Admin: 08/29/19 12:52 Dose: 999 mls/hr Argatroban 250 mg/ Sodium (Chloride) 252.5 mls @ 9.69 mls/hr IV TITRATE [facility]; Protocol Last Titration: 09/03/19 08:55 Dose: 0 mcg/kg/min, 0 mls/hr Sodium Chloride (Normal Saline) 100 mls @ 60 mls/hr IV ASDIRECTED [facility] Stop: 08/30/19 13:00 Potassium Chloride 10 meq/ (Premix) 100 mls @ 100 mls/hr IV Q1H [facility] Stop: 08/31/19 11:29 Last Admin: 08/31/19 11:42 Dose: 100 mls/hr Dextrose/Water (Dextrose 5% In Water) Confirm Administered Dose 250 mls @ as directed .ROUTE .STK-MED ONE Stop: 09/01/19 15:54 Last Admin: 09/01/19 18:13 Dose: Not Given Dextrose/Water (Dextrose 5% In Water) 1,000 mls @ 50 mls/hr IV ASDIRECTED [facility] Last Infusion: 09/02/19 20:45 Dose: 25 mls/hr Sodium Chloride (Normal Saline) 100 mls @ 75 mls/hr IV ASDIRECTED [facility] Linezolid 600 mg/ Premix 300 mls @ 300 mls/hr IV Q12H [facility] Last Admin: 09/01/19 19:54 Dose: Not Given Linezolid 600 mg/ Premix 300 mls @ 300 mls/hr IV Q12H [facility] Last Admin: 09/03/19 12:01 Dose: Not Given Potassium Chloride 10 meq/ (Premix) 100 mls @ 100 mls/hr IV Q1H [facility] Stop: 09/03/19 12:14 Last Admin: 09/03/19 12:50 Dose: 100 mls/hr Iopamidol (Isovue-370 (76%)) 100 ml IVPUSH ONETIME ONE Stop: 09/01/19 17:31 Last Admin: 09/01/19 17:31 Dose: 100 ml Levothyroxine Sodium (Synthroid) 75 mcg PO DAILY [facility] Morphine Sulfate (Morphine) 1 mg IVPUSH ONETIME ONE Stop: 08/29/19 07:47 Last Admin: 08/29/19 08:09 Dose: 1 mg Non-Formulary Medication (Losartan) 50 mg PO BEDTIME [facility] Norepinephrine Bitartrate (Levophed) Confirm Administered Dose 4 mg .ROUTE .STK- MED ONE Stop: 08/24/19 16:39 Last Admin: 08/24/19 16:47 Dose: Not Given Norepinephrine Bitartrate (Levophed) Confirm Administered Dose 4 mg .ROUTE .STK- MED ONE Stop: 09/01/19 15:54 Last Admin: 09/01/19 18:12 Dose: Not Given Ondansetron HCl (Zofran) 4 mg IVPUSH ONETIME ONE Stop: 08/24/19 07:27 Last Admin: 08/24/19 08:13 Dose: 4 mg Potassium Chloride (Klor-Con M20) 20 meq PO BID [facility] Last Admin: 09/01/19 08:51 Dose: 20 meq Potassium Chloride (Potassium Chloride Solution) 40 meq NGTUBE ONETIME ONE Stop: 09/01/19 12:01 Last Admin: 09/01/19 11:39 Dose: 40 meq Sodium Chloride (Saline Flush) 10 ml FLUSH ONETIME ONE Stop: 08/30/19 09:01 Last Admin: 08/30/19 09:09 Dose: 10 ml Succinylcholine Chloride (Quelicin) 200 mg .ROUTE .STK-MED ONE Stop: 08/24/19 15:01 Vecuronium [place] (Vecuronium) Confirm Administered Dose 10 mg .ROUTE .STK-MED ONE Stop: 08/24/19 20:13 - Exam Wound/Incisions: Drainage (serosanguinous, improving) General: Alert, Cooperative, No Acute Distress Cardiovascular: Regular Rate, Regular Rhythm, No Murmurs GI/Abdominal Exam: Soft, Tender (appropriately) Skin: Warm, Dry, Intact Sepsis Event Note - Evaluation Sepsis Screening Result: No Definite Risk - Focused Exam Vital Signs: Vital Signs Temp Pulse Resp BP BP Pulse Ox Pulse Ox 09/03/19 12:00 98.3 F 18 133/54 L 95 09/03/19 08:19 98 09/03/19 08:00 98.1 F 16 139/53 L 98 09/03/19 04:01 81 16 135/53 L 96 09/03/19 04:00 84 18 95 09/03/19 03:45 78 16 97 09/03/19 03:30 84 18 97 09/03/19 03:15 78 16 97 09/03/19 03:00 85 12 97 09/03/19 02:14 98 Date Exam was Performed: 09/03/19 Time Exam was Performed: 14:00 - Problem List Review Problem List Initiated/Reviewed/Updated: No - My Orders Last 24 Hours: Active Orders 24 hr Category Date Time Status NPO [Nothing Per Oral Diet] [DIET] Diet 09/03/19 Lunch Active APTT [REF] Routine Lab 09/03/19 04:45 Received CBC WITH AUTO DIFF [HEME] AM Lab 09/04/19 05:11 Ordered CMP [COMPREHENSIVE METABOLIC PN,CMP] [CHEM] AM Lab 09/04/19 05:11 Ordered MAGNESIUM [CHEM] AM Lab 09/04/19 05:11 Ordered MISC TEST Routine Lab 09/02/19 15:15 Received Dextrose 5% in Water 1,000 ml Med 09/03/19 11:00 Ordered IV ASDIRECTED Furosemide [Lasix] Med 09/03/19 09:00 Active 40 mg IVPUSH BID Medication Orders Albuterol/Ipratropium (Duoneb 3.0-0.5 Mg/3 Ml) 3 ml NEB Q6HRRT [facility] Last Admin: 09/03/19 08:19 Dose: 3 ml Admin: 09/03/19 02:12 Dose: 3 ml Admin: 09/02/19 20:51 Dose: 3 ml Admin: 09/02/19 14:27 Dose: 3 ml Admin: 09/02/19 08:31 Dose: 3 ml Admin: 09/02/19 02:45 Dose: 3 ml Admin: 09/01/19 20:26 Dose: 3 ml Admin: 09/01/19 16:16 Dose: 3 ml Amlodipine Besylate (Norvasc) 10 mg PO DAILY [facility] Last Admin: 09/03/19 09:39 Dose: Admin: 09/02/19 08:08 Dose: 10 mg Admin: 09/01/19 08:51 Dose: 10 mg Admin: 08/31/19 09:50 Dose: 10 mg Admin: 08/30/19 09:10 Dose: 10 mg Admin: 08/29/19 12:51 Dose: 10 mg Chlorthalidone (Chlorthalidone) 25 mg PO DAILY [facility] Last Admin: 09/03/19 09:39 Dose: Admin: 09/02/19 08:09 Dose: 25 mg Admin: 09/01/19 08:50 Dose: 25 mg Admin: 08/31/19 09:50 Dose: 25 mg Admin: 08/30/19 10:58 Dose: 25 mg Furosemide (Lasix) 40 mg IVPUSH BID [facility] Last Admin: 09/03/19 09:30 Dose: 40 mg Hydralazine HCl (Apresoline) 10 mg IVPUSH Q2H PRN PRN Reason: Systolic >180 / Diastolic >100 Last Admin: 08/31/19 01:25 Dose: 10 mg Admin: 08/30/19 21:48 Dose: 10 mg Admin: 08/30/19 18:01 Dose: 10 mg Norepinephrine Bitartrate 4 mg (/ Dextrose/Water) 250 mls @ 7.5 mls/hr IV TITRATE [facility]; Protocol Dextrose/Water (Dextrose 5% In Water) 1,000 mls @ 50 mls/hr IV ASDIRECTED [facility] Morphine Sulfate (Morphine) 1 mg IVPUSH Q4H PRN PRN Reason: Pain Last Admin: 09/02/19 08:50 Dose: 1 mg Admin: 09/02/19 00:05 Dose: 1 mg Admin: 09/01/19 02:33 Dose: 1 mg Admin: 08/31/19 21:26 Dose: 1 mg Admin: 08/31/19 14:27 Dose: 1 mg Admin: 08/31/19 00:05 Dose: 1 mg Admin: 08/30/19 05:17 Dose: 1 mg Admin: 08/29/19 20:28 Dose: 1 mg Admin: 08/29/19 17:44 Dose: 1 mg Admin: 08/29/19 12:50 Dose: 1 mg Pantoprazole Sodium (Protonix Iv) 40 mg IVPUSH DAILY [facility] Last Admin: 09/03/19 09:30 Dose: 40 mg Admin: 09/02/19 08:00 Dose: 40 mg Admin: 09/01/19 08:50 Dose: 40 mg Admin: 08/31/19 09:49 Dose: 40 mg Admin: 08/30/19 09:06 Dose: 40 mg Admin: 08/29/19 08:08 Dose: 40 mg Admin: 08/28/19 08:06 Dose: 40 mg Admin: 08/27/19 08:34 Dose: 40 mg Admin: 08/26/19 08:40 Dose: 40 mg Admin: 08/25/19 08:19 Dose: 40 mg Potassium Chloride (Potassium Chloride Solution) 20 meq NGTUBE BID [facility] Last Admin: 09/03/19 09:39 Dose: Admin: 09/02/19 20:21 Dose: 20 meq Admin: 09/02/19 08:02 Dose: 20 meq Admin: 09/01/19 20:20 Dose: 20 meq Psyllium Husk (Metamucil Sugar Free) 1 packet PO BID [facility] Last Admin: 09/03/19 09:39 Dose: Admin: 09/02/19 20:21 Dose: 1 packet Admin: 09/02/19 11:59 Dose: 1 packet Sodium Chloride (Saline Flush) 10 ml FLUSH ASDIRECTED PRN PRN Reason: Keep Vein Open Last Admin: 09/01/19 18:31 Dose: 10 ml Admin: 08/24/19 08:14 Dose: 10 ml - Assessment Assessment (Free Text/Narrative):: Stable. SHe had mild blood tinged NGT output. Anticoagulation stopped and TF stopped. Repeat Hgb now at 9.1. Progressing well otherwise. - Plan Plan (Free Text/Narrative):: - Continue wound packing as you are currently doing. - Echocardiogram and CTA negative for thrombus. Will stop anticoagulation and start ASA 81mg daily - Restart TF tonight at 20cc/hr and advance as tolerated - Rectal tube removal today. may replaced if patient has severe diarrhea - Swallow eval Please call with questions.
[2019-09-03] MEDS: Dextrose 5%-0.45% NaCl 1,000 ML IV SCH (16:04)
[2019-09-03] MEDS: Sodium Chloride 0.9% 10 ML Syringe FLUSH PRN (21:06)
[2019-09-04] MEDS: Albuterol/Ipratropium 3.0-0.5 MG/3 ML Neb Soln NEB SCH ×4 (02:25→20:14)
[2019-09-04] MEDS: Potassium Chloride 10 MEQ in Premix Bag 1 BAG IV SCH ×4 (08:29→11:33)
[2019-09-04] MEDS: Potassium Chloride 10% 20 MEQ/15 ML Soln 15 ML UD Cup NGTUBE SCH ×2 (08:34→21:12)
[2019-09-04] MEDS: Chlorthalidone 25 MG Tab PO SCH (08:34)
[2019-09-04] MEDS: Aspirin 81 MG Tab.Chew PO SCH (08:34)
[2019-09-04] MEDS: amLODIPine 10 MG Tab PO SCH (08:34)
[2019-09-04] MEDS: Furosemide 20 MG/2 ML VIAL IVPUSH SCH (08:34)
[2019-09-04] MEDS: Pantoprazole 40 MG Vial IVPUSH SCH (08:35)
[2019-09-04] MEDS: Psyllium Husk Powder Sugar Free 3.4 GM Packet PO SCH (08:35)
--- NOTE | 2019-09-04 11:49 | CR ---
Chest: Portable view of the chest was obtained. Comparison: Previous chest CT of 09/01/19 and chest x-ray of 09/01/19. Heart size and mediastinum are within normal limits for portable technique. Moderately large right sided pleural effusion is seen. Blunting of the lateral left costophrenic angle is seen compatible with minimal pleural effusion. Atelectasis is noted within the left lung base. Upper lungs are clear. Nasogastric tube is coiled within the stomach. Right jugular line is noted and is stable. Impression: 1. Bilateral pleural effusions with left basilar atelectasis. 2. Nasogastric tube and right jugular line. 3. No additional abnormality is appreciated. Diagnostic code #3 This report was dictated in [place] Standard Time I agree with preliminary report issued by [facility] ([facility] report finalized on 09/04/19, 9:25 AM Central Time.
--- NOTE | 2019-09-04 13:35 | PCM.PN ---
- General Info Date of Service: 09/04/19 Admission Dx/Problem (Free Text): Decreased urine output Norepinephrine drip Fentanyl and versed for sedation LR for fluid repletion Levaquin, vancomycin and Zosyn Subjective Update: Patient was doing well with her tube feeds and again until this morning. This morning she had 300 residual and ended up having some vomiting. Tube feeds were stopped. There was still some blood-tinged in her nasogastric tube. Functional Status: Reports: Pain Controlled - Review of Systems General: Reports: No Symptoms HEENT: Reports: No Symptoms Pulmonary: Reports: No Symptoms Cardiovascular: Reports: No Symptoms Gastrointestinal: Reports: No Symptoms Musculoskeletal: Reports: No Symptoms Skin: Reports: No Symptoms Neurological: Reports: No Symptoms - Patient Data Vitals - Most Recent: Last Vital Signs Temp 97.6 F 09/04/19 12:00 Pulse 82 09/04/19 07:00 Resp 18 09/04/19 12:00 BP 140/48 L 09/04/19 12:00 Pulse Ox 92 L 09/04/19 12:00 Weight - Most Recent: 160 lb I&O - Last 24 Hours: Intake & Output 09/03/19 09/04/19 09/04/19 22:59 06:59 14:59 Intake Total 960 1043 260 Output Total 2250 1700 1575 Balance -6280 -994 -0535 Lab Results Last 24 Hours: Laboratory Results - last 24 hr 08/26/19 09/03/19 09/03/19 Range/Units 07:01 04:45 17:59 WBC (3.98-10.04) K/mm3 RBC (3.98-5.22) M/mm3 Hgb 9.2 L (11.2-15.7) gm/dl Hct 27.7 L (34.1-44.9) % MCV (79.4-94.8) fl MCH (25.6-32.2) pg MCHC (32.2-35.5) g/dl RDW Std Deviation (36.4-46.3) fL Plt Count (182-369) K/mm3 MPV (9.4-12.3) fl Neut % (Auto) (34.0-71.1) % Lymph % (Auto) (19.3-51.7) % [place] % (Auto) (4.7-12.5) % Eos % (Auto) (0.7-5.8) Baso % (Auto) (0.1-1.2) % Neut # (Auto) (1.56-6.13) K/mm3 Lymph # (Auto) (1.18-3.74) K/mm3 [place] # (Auto) (0.24-0.36) K/mm3 Eos # (Auto) (0.04-0.36) K/mm3 Baso # (Auto) (0.01-0.08) K/mm3 Manual Slide Review APTT 81 H (24-32) sec Sodium (136-145) mEq/L Potassium (3.5-5.1) mEq/L Chloride (98-107) mEq/L Carbon Dioxide (21-32) mEq/L Anion Gap (5-15) BUN (7-18) mg/dL Creatinine (0.55-1.02) mg/dL Est Cr Clr Drug Dosing mL/min Estimated GFR (MDRD) (>60) mL/min BUN/Creatinine Ratio (14-18) Glucose (83-115) mg/dL Calcium (8.5-10.1) mg/dL Magnesium (1.8-2.4) mg/dl Total Bilirubin (0.2-1.0) mg/dL AST (15-37) U/L ALT (14-59) U/L Alkaline Phosphatase (46-116) U/L Total Protein (6.4-8.2) g/dl Albumin (3.4-5.0) g/dl Globulin gm/dL Albumin/Globulin Ratio (1-2) Miscellaneous Test See scanned report 09/04/19 09/04/19 Range/Units 04:50 04:50 WBC 19.69 H (3.98-10.04) K/mm3 RBC 3.25 L (3.98-5.22) M/mm3 Hgb 8.9 L (11.2-15.7) gm/dl Hct 27.0 L (34.1-44.9) % MCV 83.1 (79.4-94.8) fl MCH 27.4 (25.6-32.2) pg MCHC 33.0 (32.2-35.5) g/dl RDW Std Deviation 71.4 H (36.4-46.3) fL Plt Count 294 D (182-369) K/mm3 MPV 11.9 (9.4-12.3) fl Neut % (Auto) 88.0 H (34.0-71.1) % Lymph % (Auto) 6.0 L (19.3-51.7) % [place] % (Auto) 5.0 (4.7-12.5) % Eos % (Auto) 0.4 L (0.7-5.8) Baso % (Auto) 0.1 (0.1-1.2) % Neut # (Auto) 17.36 H (1.56-6.13) K/mm3 Lymph # (Auto) 1.18 (1.18-3.74) K/mm3 [place] # (Auto) 0.98 H (0.24-0.36) K/mm3 Eos # (Auto) 0.07 (0.04-0.36) K/mm3 Baso # (Auto) 0.01 (0.01-0.08) K/mm3 Manual Slide Review Abnormal smear APTT (24-32) sec Sodium 136 (136-145) mEq/L Potassium 3.1 L (3.5-5.1) mEq/L Chloride 100 (98-107) mEq/L Carbon Dioxide 27 (21-32) mEq/L Anion Gap 12.1 (5-15) BUN 19 H (7-18) mg/dL Creatinine 1.3 H (0.55-1.02) mg/dL Est Cr Clr Drug Dosing 26.16 mL/min Estimated GFR (MDRD) 39 (>60) mL/min BUN/Creatinine Ratio 14.6 (14-18) Glucose 135 H (83-115) mg/dL Calcium 8.3 L (8.5-10.1) mg/dL Magnesium 1.8 (1.8-2.4) mg/dl Total Bilirubin 0.5 (0.2-1.0) mg/dL AST 21 (15-37) U/L ALT 14 (14-59) U/L Alkaline Phosphatase 62 (46-116) U/L Total Protein 5.6 L (6.4-8.2) g/dl Albumin 2.0 L (3.4-5.0) g/dl Globulin 3.6 gm/dL Albumin/Globulin Ratio 0.6 L (1-2) Miscellaneous Test Gerardo Results Last 24 Hours: Microbiology 09/01/19 19:40 Urine Culture - Final Urine, Catheterized Rosy Albicans 09/01/19 20:20 Aerobic Blood Culture - Preliminary Blood - Venous - Lab Draw NO GROWTH AFTER 2 DAYS Anaerobic Blood Culture - Preliminary NO GROWTH AFTER 2 DAYS 09/01/19 19:50 Aerobic Blood Culture - Preliminary Blood - Venous NO GROWTH AFTER 2 DAYS Anaerobic Blood Culture - Preliminary NO GROWTH AFTER 2 DAYS Med Orders - Current: Current Medications Albuterol/Ipratropium (Duoneb 3.0-0.5 Mg/3 Ml) 3 ml NEB Q6HRRT [facility] Last Admin: 09/04/19 08:14 Dose: 3 ml Amlodipine Besylate (Norvasc) 10 mg PO DAILY [facility] Last Admin: 09/04/19 08:34 Dose: 10 mg Aspirin (Aspirin) 81 mg PO DAILY [facility] Last Admin: 09/04/19 08:34 Dose: 81 mg Chlorthalidone (Chlorthalidone) 25 mg PO DAILY [facility] Last Admin: 09/04/19 08:34 Dose: 25 mg Furosemide (Lasix) 20 mg IVPUSH DAILY [facility] Last Admin: 09/04/19 08:34 Dose: 20 mg Hydralazine HCl (Apresoline) 10 mg IVPUSH Q2H PRN PRN Reason: Systolic >180 / Diastolic >100 Last Admin: 08/31/19 01:25 Dose: 10 mg Norepinephrine Bitartrate 4 mg (/ Dextrose/Water) 250 mls @ 7.5 mls/hr IV TITRATE [facility]; Protocol Dextrose/Sodium Chloride (Dextrose 5%-1/2 Ns) 1,000 mls @ 50 mls/hr IV ASDIRECTED [facility] Last Admin: 09/03/19 16:04 Dose: 50 mls/hr Morphine Sulfate (Morphine) 1 mg IVPUSH Q4H PRN PRN Reason: Pain Last Admin: 09/02/19 08:50 Dose: 1 mg Pantoprazole Sodium (Protonix Iv) 40 mg IVPUSH DAILY [facility] Last Admin: 09/04/19 08:35 Dose: 40 mg Potassium Chloride (Potassium Chloride Solution) 20 meq NGTUBE BID [facility] Last Admin: 09/04/19 08:34 Dose: 20 meq Psyllium Husk (Metamucil Sugar Free) 1 packet PO BID [facility] Last Admin: 09/04/19 08:35 Dose: 1 packet Sodium Chloride (Saline Flush) 10 ml FLUSH ASDIRECTED PRN PRN Reason: Keep Vein Open Last Admin: 09/03/19 21:06 Dose: 10 ml Discontinued Medications Atropine Sulfate (Atropine 0.1 Mg/Ml) 0.5 mg IVPUSH ONETIME ONE Stop: 08/27/19 07:57 Last Admin: 08/27/19 08:09 Dose: 0.5 mg Bumetanide (Bumex) 1 mg IVPUSH ONETIME ONE Stop: 08/25/19 22:49 Last Admin: 08/26/19 00:07 Dose: 1 mg Bumetanide (Bumex) 1 mg IVPUSH BID [facility] Last Admin: 08/28/19 08:06 Dose: 1 mg Dextrose/Water (Dextrose 50% In Water) 25 ml IVPUSH NOW STA Stop: 08/27/19 05:41 Last Admin: 08/27/19 05:47 Dose: 25 ml Enoxaparin Sodium (Lovenox) 70 mg SUBCUT Q24H [facility] Last Admin: 08/28/19 11:48 Dose: 70 mg Ephedrine Sulfate (Ephedrine In Ns) Confirm Administered Dose 25 mg .ROUTE .STK- MED ONE Stop: 08/24/19 21:32 Etomidate (Amidate) 40 mg IVPUSH .STK-MED ONE Stop: 08/24/19 15:01 Fentanyl (Sublimaze) Confirm Administered Dose 250 mcg .ROUTE .STK-MED ONE Stop: 08/24/19 18:10 Furosemide (Lasix) 60 mg IVPUSH NOW ONE Stop: 09/01/19 16:59 Last Admin: 09/01/19 17:15 Dose: 60 mg Furosemide (Lasix) 60 mg IVPUSH ONETIME ONE Stop: 09/02/19 00:01 Last Admin: 09/01/19 23:55 Dose: 60 mg Furosemide (Lasix) 40 mg IVPUSH NOW ONE Stop: 09/02/19 10:49 Last Admin: 09/02/19 11:59 Dose: 40 mg Furosemide (Lasix) 40 mg IVPUSH NOW ONE Stop: 09/02/19 18:19 Last Admin: 09/02/19 18:26 Dose: 40 mg Furosemide (Lasix) 40 mg IVPUSH BID [facility] Last Admin: 09/03/19 21:03 Dose: 40 mg Heparin Sodium (Porcine) (Heparin Sodium) 5,000 units IVPUSH .BOLUS ONE Stop: 08/25/19 13:27 Last Admin: 08/25/19 14:11 Dose: 5,000 units Heparin Sodium (Porcine) (Heparin Lock Flush 100 Units/Ml) Confirm Administered Dose 500 units .ROUTE .STK-MED ONE Stop: 08/25/19 22:38 Last Admin: 08/25/19 23:02 Dose: 500 units Hydralazine HCl (Apresoline) 10 mg IVPUSH ONETIME ONE Stop: 08/29/19 07:47 Last Admin: 08/29/19 08:08 Dose: 10 mg Hydralazine HCl (Apresoline) 10 mg IVPUSH ONETIME ONE Stop: 08/30/19 11:55 Last Admin: 08/30/19 12:03 Dose: 10 mg Hydrocortisone Sodium Succinate (Solu-Cortef) 50 mg IV Q8H [facility] Last Admin: 08/29/19 12:21 Dose: 50 mg Hydromorphone HCl (Dilaudid) 0.5 mg IVPUSH ONETIME ONE Stop: 08/24/19 07:28 Last Admin: 08/24/19 08:15 Dose: 0.5 mg Sodium Chloride (Normal Saline) 1,000 mls @ 1,000 mls/hr IV .BOLUS STA Stop: 08/24/19 08:25 Last Admin: 08/24/19 08:13 Dose: 1,000 mls/hr Cefepime HCl 2 gm/ Premix 50 mls @ 100 mls/hr IV ONETIME ONE Stop: 08/24/19 13:18 Last Admin: 08/24/19 13:19 Dose: 100 mls/hr Lactated Ringer's (Ringers, Lactated) 1,100 mls @ 1,000 mls/hr IV .BOLUS ONE Stop: 08/24/19 14:13 Last Admin: 08/24/19 13:40 Dose: 1,000 mls/hr Levofloxacin/Dextrose 750 mg/ (Premix) 150 mls @ 100 mls/hr IV ONETIME ONE Stop: 08/24/19 15:07 Last Admin: 08/24/19 16:03 Dose: 100 mls/hr Piperacillin Sod/Tazobactam (Sod 4.5 gm/ Sodium Chloride) 100 mls @ 25 mls/hr IV Q8H [facility] Last Admin: 08/26/19 05:13 Dose: 25 mls/hr Vancomycin HCl 1 gm/ Sodium (Chloride) 250 mls @ 250 mls/hr IV ONETIME ONE Stop: 08/24/19 14:37 Last Admin: 08/24/19 16:06 Dose: 250 mls/hr Fentanyl 2,500 mcg/ Sodium (Chloride) 250 mls @ 7.27 mls/hr IV TITRATE [facility]; Protocol Last Titration: 08/28/19 04:23 Dose: 0 mcg/kg/hr, 0 mls/hr Midazolam HCl 50 mg/ Sodium (Chloride) 50 mls @ 0.5 mls/hr IV TITRATE [facility]; Protocol Stop: 08/25/19 15:29 Last Titration: 08/25/19 11:57 Dose: 2 mg/hr, 2 mls/hr Lactated Ringer's (Ringers, Lactated) 1,000 mls @ 125 mls/hr IV ASDIRECTED [facility] Last Admin: 08/25/19 01:00 Dose: 125 mls/hr Norepinephrine Bitartrate 4 mg (/ Dextrose/Water) 250 mls @ 7.5 mls/hr IV TITRATE [facility]; Protocol Last Titration: 08/27/19 07:25 Dose: 0 mcg/min, 0 mls/hr Sodium Chloride (Normal Saline) Confirm Administered Dose 1,000 mls @ as directed .ROUTE .STK-MED ONE Stop: 08/24/19 17:09 Last Admin: 08/24/19 17:16 Dose: 1 mls/hr Lactated Ringer's (Ringers, Lactated) Confirm Administered Dose 1,000 mls @ as directed .ROUTE .STK-MED ONE Stop: 08/24/19 18:34 Lactated Ringer's (Ringers, Lactated) Confirm Administered Dose 1,000 mls @ as directed .ROUTE .STK-MED ONE Stop: 08/24/19 19:10 Lactated Ringer's (Ringers, Lactated) Confirm Administered Dose 1,000 mls @ as directed .ROUTE .STK-MED ONE Stop: 08/24/19 19:46 Lactated Ringer's (Ringers, Lactated) Confirm Administered Dose 1,000 mls @ as directed .ROUTE .STK-MED ONE Stop: 08/24/19 20:40 Lactated Ringer's (Ringers, Lactated) 1,000 mls @ 250 mls/hr IV ASDIRECTED [facility] Last Infusion: 08/26/19 12:28 Dose: Infused Lactated Ringer's (Ringers, Lactated) 1,000 mls @ 999 mls/hr IV .BOLUS ONE Stop: 08/25/19 09:03 Last Admin: 08/25/19 08:10 Dose: 999 mls/hr Heparin Sodium/Dextrose (Heparin 25,000 Units In D5w 500 Ml) 25,000 units in 500 mls @ 26 mls/hr IV TITRATE [facility]; Protocol Last Admin: 08/26/19 08:24 Dose: 22 units/kg/hr, 32.013 mls/hr Dopamine HCl/Dextrose (Dopamine In D5w 400 Mg/250 Ml) 400 mg in 250 mls @ 5.457 mls/hr IV TITRATE [facility]; Protocol Last Titration: 08/26/19 15:20 Dose: 0 mcg/kg/min, 0 mls/hr Lactated Ringer's (Ringers, Lactated) 2,000 mls @ 999 mls/hr IV .BOLUS ONE Stop: 08/25/19 17:52 Last Admin: 08/25/19 16:11 Dose: 999 mls/hr Lactated Ringer's (Ringers, Lactated) 1,000 mls @ 999 mls/hr IV .BOLUS ONE Stop: 08/25/19 17:13 Last Admin: 08/25/19 16:48 Dose: 999 mls/hr Midazolam HCl 50 mg/ Sodium (Chloride) 50 mls @ 0.5 mls/hr IV TITRATE [facility]; Protocol Last Titration: 08/27/19 07:55 Dose: 0 mg/hr, 0 mls/hr Albumin Human (Flexbumin 25%) 25 gm in 100 mls @ 100 mls/hr IV Q1H [facility] Stop: 08/26/19 00:46 Last Admin: 08/26/19 00:07 Dose: 100 mls/hr Albumin Human (Flexbumin 25%) 12.5 gm in 50 mls @ 100 mls/hr IV Q8H [facility] Stop: 08/29/19 07:01 Last Admin: 08/29/19 05:59 Dose: 100 mls/hr Lactated Ringer's (Ringers, Lactated) 1,000 mls @ 200 mls/hr IV ASDIRECTED [facility] Last Infusion: 08/26/19 12:30 Dose: 100 mls/hr Magnesium Sulfate 4 gm/ Premix 100 mls @ 25 mls/hr IV ONETIME ONE Stop: 08/26/19 07:31 Last Admin: 08/26/19 06:48 Dose: 25 mls/hr Piperacillin Sod/Tazobactam (Sod 4.5 gm/ Sodium Chloride) 100 mls @ 25 mls/hr IV Q12H [facility] Stop: 08/29/19 10:00 Last Admin: 08/29/19 07:09 Dose: Not Given Lactated Ringer's (Ringers, Lactated) 1,000 mls @ 100 mls/hr IV ASDIRECTED [facility] Last Admin: 08/26/19 18:09 Dose: 100 mls/hr Dextrose/Water (Dextrose 10% In Water) 1,000 mls @ 25 mls/hr IV ASDIRECTED [facility] Dextrose/Water (Dextrose 10% In Water) 1,000 mls @ 25 mls/hr IV ASDIRECTED [facility] Last Admin: 08/27/19 05:52 Dose: 25 mls/hr Dextrose/Water (Dextrose 10% In Water) Confirm Administered Dose 1,000 mls @ as directed .ROUTE .STK-MED ONE Stop: 08/27/19 05:47 Last Admin: 08/27/19 05:56 Dose: Not Given Potassium Cl/Dextrose/Lact Ringer's (D5 Lr With 20 Meq Kcl) 1,000 mls @ 100 mls /hr IV ASDIRECTED [facility] Last Infusion: 08/28/19 11:57 Dose: 50 mls/hr Potassium Chloride 10 meq/ (Premix) 100 mls @ 100 mls/hr IV Q1H [facility] Stop: 08/27/19 12:59 Last Admin: 08/27/19 12:55 Dose: 100 mls/hr Potassium Chloride 10 meq/ (Premix) 100 mls @ 100 mls/hr IV Q1H [facility] Stop: 08/28/19 15:29 Last Admin: 08/28/19 15:11 Dose: 100 mls/hr Potassium Cl/Dextrose/Lact Ringer's (D5 Lr With 20 Meq Kcl) 1,000 mls @ 50 mls/ hr IV ASDIRECTED [facility] Last Admin: 08/30/19 18:01 Dose: 50 mls/hr Piperacillin Sod/Tazobactam (Sod 4.5 gm/ Sodium Chloride) 100 mls @ 25 mls/hr IV Q8H [facility] Last Admin: 09/03/19 07:04 Dose: 25 mls/hr Potassium Chloride 10 meq/ (Premix) 100 mls @ 100 mls/hr IV Q1H [facility] Stop: 08/29/19 17:59 Last Admin: 08/29/19 17:47 Dose: 100 mls/hr Magnesium Sulfate 2 gm/ Premix 50 mls @ 25 mls/hr IV 1200,2100 [facility] Stop: 08/29/19 22:59 Last Admin: 08/29/19 20:25 Dose: 25 mls/hr Sodium Chloride (Normal Saline) 1,000 mls @ 999 mls/hr IRR ONETIME ONE Stop: 08/29/19 13:07 Last Admin: 08/29/19 12:52 Dose: 999 mls/hr Argatroban 250 mg/ Sodium (Chloride) 252.5 mls @ 9.69 mls/hr IV TITRATE [facility]; Protocol Last Titration: 09/03/19 08:55 Dose: 0 mcg/kg/min, 0 mls/hr Sodium Chloride (Normal Saline) 100 mls @ 60 mls/hr IV ASDIRECTED [facility] Stop: 08/30/19 13:00 Potassium Chloride 10 meq/ (Premix) 100 mls @ 100 mls/hr IV Q1H [facility] Stop: 08/31/19 11:29 Last Admin: 08/31/19 11:42 Dose: 100 mls/hr Dextrose/Water (Dextrose 5% In Water) Confirm Administered Dose 250 mls @ as directed .ROUTE .STK-MED ONE Stop: 09/01/19 15:54 Last Admin: 09/01/19 18:13 Dose: Not Given Dextrose/Water (Dextrose 5% In Water) 1,000 mls @ 50 mls/hr IV ASDIRECTED [facility] Last Infusion: 09/02/19 20:45 Dose: 25 mls/hr Sodium Chloride (Normal Saline) 100 mls @ 75 mls/hr IV ASDIRECTED [facility] Linezolid 600 mg/ Premix 300 mls @ 300 mls/hr IV Q12H [facility] Last Admin: 09/01/19 19:54 Dose: Not Given Linezolid 600 mg/ Premix 300 mls @ 300 mls/hr IV Q12H [facility] Last Admin: 09/03/19 12:01 Dose: Not Given Potassium Chloride 10 meq/ (Premix) 100 mls @ 100 mls/hr IV Q1H [facility] Stop: 09/03/19 12:14 Last Admin: 09/03/19 12:50 Dose: 100 mls/hr Dextrose/Water (Dextrose 5% In Water) 1,000 mls @ 50 mls/hr IV ASDIRECTED [facility] Last Admin: 09/03/19 11:07 Dose: 50 mls/hr Potassium Chloride 10 meq/ (Premix) 100 mls @ 100 mls/hr IV Q1H [facility] Stop: 09/04/19 11:59 Last Admin: 09/04/19 11:33 Dose: 100 mls/hr Iopamidol (Isovue-370 (76%)) 100 ml IVPUSH ONETIME ONE Stop: 09/01/19 17:31 Last Admin: 09/01/19 17:31 Dose: 100 ml Levothyroxine Sodium (Synthroid) 75 mcg PO DAILY [facility] Morphine Sulfate (Morphine) 1 mg IVPUSH ONETIME ONE Stop: 08/29/19 07:47 Last Admin: 08/29/19 08:09 Dose: 1 mg Non-Formulary Medication (Losartan) 50 mg PO BEDTIME [facility] Norepinephrine Bitartrate (Levophed) Confirm Administered Dose 4 mg .ROUTE .STK- MED ONE Stop: 08/24/19 16:39 Last Admin: 08/24/19 16:47 Dose: Not Given Norepinephrine Bitartrate (Levophed) Confirm Administered Dose 4 mg .ROUTE .STK- MED ONE Stop: 09/01/19 15:54 Last Admin: 09/01/19 18:12 Dose: Not Given Ondansetron HCl (Zofran) 4 mg IVPUSH ONETIME ONE Stop: 08/24/19 07:27 Last Admin: 08/24/19 08:13 Dose: 4 mg Potassium Chloride (Klor-Con M20) 20 meq PO BID [facility] Last Admin: 09/01/19 08:51 Dose: 20 meq Potassium Chloride (Potassium Chloride Solution) 40 meq NGTUBE ONETIME ONE Stop: 09/01/19 12:01 Last Admin: 09/01/19 11:39 Dose: 40 meq Sodium Chloride (Saline Flush) 10 ml FLUSH ONETIME ONE Stop: 08/30/19 09:01 Last Admin: 08/30/19 09:09 Dose: 10 ml Succinylcholine Chloride (Quelicin) 200 mg .ROUTE .STK-MED ONE Stop: 08/24/19 15:01 Vecuronium [place] (Vecuronium) Confirm Administered Dose 10 mg .ROUTE .STK-MED ONE Stop: 08/24/19 20:13 - Exam General: Alert, Oriented HEENT: Pupils Equal, EOMI, Mucous Membr. Moist/[place] Neck: Supple Lungs: Normal Respiratory Effort, Rales (Bibasilar) Cardiovascular: Regular Rate, Regular Rhythm GI/Abdominal Exam: Normal Bowel Sounds, Soft, Non-Tender, No Distention Sepsis Event Note - Evaluation Sepsis Screening Result: No Definite Risk - Focused Exam Vital Signs: Vital Signs Temp Pulse Resp BP BP BP Pulse Ox 09/04/19 12:00 97.6 F 18 140/48 L 92 L 09/04/19 08:34 151/55 H 09/04/19 08:15 09/04/19 08:00 97.6 F 16 151/55 H 93 L 09/04/19 07:00 82 18 92 L 09/04/19 06:43 83 23 H 157/52 H 90 L 09/04/19 06:42 81 23 H 91 L 09/04/19 06:32 91 L 09/04/19 06:01 85 27 H 136/48 L 93 L 09/04/19 06:00 86 19 92 L 09/04/19 05:30 86 20 93 L 09/04/19 05:00 85 18 92 L 09/04/19 04:30 84 19 92 L 09/04/19 04:00 98.1 F 20 129/44 L 93 L 09/04/19 03:30 85 21 H 93 L 09/04/19 03:00 85 20 92 L 09/04/19 02:30 77 18 93 L 09/04/19 02:25 09/04/19 02:00 83 19 133/49 L 91 L 09/04/19 01:30 77 19 94 L Pulse Ox 09/04/19 12:00 09/04/19 08:34 09/04/19 08:15 94 L 09/04/19 08:00 09/04/19 07:00 09/04/19 06:43 09/04/19 06:42 09/04/19 06:32 09/04/19 06:01 09/04/19 06:00 09/04/19 05:30 09/04/19 05:00 09/04/19 04:30 09/04/19 04:00 09/04/19 03:30 09/04/19 03:00 09/04/19 02:30 09/04/19 02:25 93 L 09/04/19 02:00 09/04/19 01:30 Date Exam was Performed: 09/04/19 Time Exam was Performed: 15:58 - Problem List Review Problem List Initiated/Reviewed/Updated: Yes - My Orders Last 24 Hours: My Active Orders 09/03/19 15:15 Dextrose 5%-0.45% NaCl [Dextrose 5%-1/2 NS] 1,000 ml IV ASDIRECTED 09/03/19 15:28 Tube Feeding [Enteral Feedings] [RC] Q4HR 09/04/19 09:00 Swallow Screen [Nursing Bedside Swallow Screen] [RC] .ASDIRECTED Aspirin 81 mg PO DAILY Furosemide [Lasix] 20 mg IVPUSH DAILY 09/04/19 11:49 Communication Order [RC] ASDIRECTED - Plan Plan:: Acute respiratory failure with respiratory alkalosis-improved Patient's respiratory status is much improved. White count is still elevated at 19.7. Afebrile. On 1 L nasal cannula. Stopped antibiotics yesterday. Plan: Lasix 20 mg this morning and evaluate throughout the day and tomorrow. Likely will need continued diuretics but may need to decrease dose Blood cultures -negative after 48 hours Urine culture positive for yeast -likely colonization or asymptomatic and no need to treat. C. difficile screen negative Congestive heart failure with reduced ejection fraction - exacerbation -improved Patient has had a significant improvement in her CHF exacerbation. Her oxygen requirements have gone down greatly and she is on 1 L nasal cannula. She back to her admission weight. Echocardiogram 09/02/2019 1. Left ventricular ejection fraction by visual estimation is 45 to 50%. 2. Global and mildly decreased left ventricular systolic function. 3. Normal right ventricular systolic function. 4. There is mild aortic valve sclerosis without stenosis. 5. Mild aortic valve regurgitation. 6. Mild mitral valve regurgitation. 7. Mild tricuspid valve regurgitation. 8. No vegetations identified. Hypernatremia -resolved Patient's sodium has continued to increase since being on tube feeds. We will restart NG tube feeds and decrease D5W as we increase her NG tube feeds. Also, increase free water flushes to 100 mL every 4 hours. Change IV fluids to D5 half-normal saline at 50 mL/h until tube feeds are restarted. Follow CMP daily. 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 Rucker Wound dehiscence Decreased oral intake and complaining of abdominal pain-->Abnormal CT --> surgery consulted--> R hemicolectomy and small bowel resection Central line, arterial line (removed 08/31/2019) and ETT placed (extubated 08/30) Started on norepinephrine with inadequate BP response--> started on dopamine which improved response (off both) CXR consistent with pulmonary edema on 09/01/2019 Patient having difficulty with tube feeds. PLAN - NG tube care - NG at intermittent suction -May need Dobbhoff - RT f/u - Suction by nursing -Restart NG tube feeds at 20 mL/h tonight and increase slowly. -Swallow eval tomorrow - Pack abdominal wound BID and as needed - Pain control with PRN morphine -Stop argatroban and start low-dose baby aspirin. Heparin induced thrombocytopenia Admission platelets 341, platelets back up above 100,000 since stopping heparin T score 6, highly likely APTT has been erroneously reported lower than it actually is PLAN -Stop argatroban because no numbness seen on echo and CT. -Repeat APTT tomorrow morning - PF4 immunoassay ordered Acute kidney failure, improving Chronic kidney disease, stage 3 Hypokalemia secondary to diuresis Lactic acid normal Urine output has increased significantly and improved with Lasix Creatinine stable at 1.3. PLAN - Monitor urine output - Renally dosed medications - Avoid nephrotoxic agents as much as possible -Add back losartan when kidney function improves or stays stable GERD (gastroesophageal reflux disease) No acute issues PLAN - Scheduled IV Pantoprazole Hypertension BP on admission stable Started dropping perioperatively requiring vasopressors Pressors off since 08/27 Worsening hypertension PLAN - Continue Amlodipine 10 - continue chlorthalidone - PRN Hydralazine -When renal function improves will add back her losartan at 50 mg. Hypothyroidism No acute issues PLAN - Continue home meds Vascular dementia detention resident Requires 1 assist for bed mobility, transfer, dressing, personal hygiene and bathing 2 assist for ambulation Continent for bowel Hypothermia, resolved Septic shock, resolved Lactic acidosis, resolved Metabolic acidosis, resolved Respiratory alkalosis, resolved PROPHYLAXIS DVT- SCDs GI- pantoprazole CODE STATUS: FULL CODE I spoke with the family on 2 separate occasions, both the son and daughter, and they continue to want full treatment. DISPOSITION: Patient admitted to the ICU for vasopressors and mechanical ventilation. Taken to OR 14 with subsequent bowel resection. Patient's overall prognosis is very poor with RINCON score or 32, predicted mortality of 74%; family aware. Patient currently stable and awaiting placement at [facility]
[2019-09-04] MEDS: Dextrose 5%-0.45% NaCl 1,000 ML IV SCH (15:04)
[2019-09-04] MEDS: Morphine 2 MG/ML Syringe IVPUSH PRN (21:08)
[2019-09-04] MEDS: Sodium Chloride 0.9% 10 ML Syringe FLUSH PRN (21:12)
[2019-09-05] MEDS: Albuterol/Ipratropium 3.0-0.5 MG/3 ML Neb Soln NEB SCH ×4 (02:49→20:40)
[2019-09-05] MEDS: Potassium Chloride 10 MEQ in Premix Bag 1 BAG IV SCH ×4 (09:22→12:24)
[2019-09-05] MEDS: Pantoprazole 40 MG Vial IVPUSH SCH (09:22)
[2019-09-05] MEDS: Potassium Chloride 10% 20 MEQ/15 ML Soln 15 ML UD Cup NGTUBE SCH ×2 (09:22→21:22)
[2019-09-05] MEDS: Metoclopramide 10 MG/2 ML SDV IVPUSH SCH ×2 (09:23→16:47)
[2019-09-05] MEDS: Chlorthalidone 25 MG Tab PO SCH (09:23)
[2019-09-05] MEDS: amLODIPine 10 MG Tab PO SCH (09:23)
[2019-09-05] MEDS: Aspirin 81 MG Tab.Chew PO SCH (09:31)
--- NOTE | 2019-09-05 09:55 | CR ---
Chest: Portable view of the chest was obtained. Comparison: Prior chest x-ray of 09/04/19. Limited inspiratory effort is seen. Slight bibasilar atelectasis is noted. Mild right-sided pleural effusion is seen. Lungs otherwise are clear. Right-sided jugular line remain stable. Feeding tube is seen. Tip lies within the region of the stomach. Heart size is stable. Tortuous thoracic aorta is seen. Impression: 1. Tip of feeding tube lies within the stomach. 2. Mild bibasilar atelectasis. Right-sided pleural effusion remains. 3. Right jugular line remain stable in position. Diagnostic code #3 This report was dictated in [place] Standard Time I agree with preliminary report issued by [facility] ([facility] report finalized on 09/04/19, 11:55 PM Central Time)
[2019-09-05] MEDS: Dextrose 5%-0.45% NaCl 1,000 ML IV SCH (10:21)
--- NOTE | 2019-09-05 10:31 | PCM.SURGPN ---
- General Info Date of Service: 09/05/19 POD#: other (11) Functional Status: Reports: Pain Controlled - Review of Systems General: Reports: Weakness - Patient Data Vitals - Most Recent: Last Vital Signs Temp 98.5 F 09/05/19 08:00 Pulse 88 09/05/19 10:00 Resp 22 H 09/05/19 10:00 BP 168/57 H 09/05/19 09:23 Pulse Ox 95 09/05/19 10:00 Weight - Most Recent: 69.853 kg I&O - Last 24 Hours: Intake & Output 09/04/19 09/05/19 09/05/19 22:59 06:59 14:59 Intake Total 974 944 Output Total 1150 163 250 Balance -176 469 -250 Lab Results Last 24 Hrs: Laboratory Results - last 24 hr 08/29/19 09/05/19 09/05/19 Range/Units 06:55 08:12 08:12 WBC 17.30 H (3.98-10.04) K/mm3 RBC 3.13 L (3.98-5.22) M/mm3 Hgb 8.6 L (11.2-15.7) gm/dl Hct 26.2 L (34.1-44.9) % MCV 83.7 (79.4-94.8) fl MCH 27.5 (25.6-32.2) pg MCHC 32.8 (32.2-35.5) g/dl RDW Std Deviation 71.5 H (36.4-46.3) fL Plt Count 337 (182-369) K/mm3 MPV 10.7 (9.4-12.3) fl Neut % (Auto) 79.5 H (34.0-71.1) % Lymph % (Auto) 9.9 L (19.3-51.7) % [place] % (Auto) 9.1 (4.7-12.5) % Eos % (Auto) 0.6 L (0.7-5.8) Baso % (Auto) 0.1 (0.1-1.2) % Neut # (Auto) 13.75 H (1.56-6.13) K/mm3 Lymph # (Auto) 1.72 (1.18-3.74) K/mm3 [place] # (Auto) 1.57 H (0.24-0.36) K/mm3 Eos # (Auto) 0.11 (0.04-0.36) K/mm3 Baso # (Auto) 0.02 (0.01-0.08) K/mm3 Manual Slide Review Abnormal smear Sodium 136 (136-145) mEq/L Potassium 3.2 L (3.5-5.1) mEq/L Chloride 102 (98-107) mEq/L Carbon Dioxide 24 (21-32) mEq/L Anion Gap 13.2 (5-15) BUN 14 (7-18) mg/dL Creatinine 1.1 H (0.55-1.02) mg/dL Est Cr Clr Drug Dosing 30.92 mL/min Estimated GFR (MDRD) 47 (>60) mL/min BUN/Creatinine Ratio 12.7 L (14-18) Glucose 117 H (83-115) mg/dL Calcium 8.4 L (8.5-10.1) mg/dL Magnesium 2.0 (1.8-2.4) mg/dl Total Bilirubin 0.5 (0.2-1.0) mg/dL AST 22 (15-37) U/L ALT 13 L (14-59) U/L Alkaline Phosphatase 63 (46-116) U/L Total Protein 5.8 L (6.4-8.2) g/dl Albumin 2.0 L (3.4-5.0) g/dl Globulin 3.8 gm/dL Albumin/Globulin Ratio 0.5 L (1-2) Miscellaneous Test Comment Gerardo Results Last 24 Hrs: Microbiology 09/01/19 20:20 Aerobic Blood Culture - Preliminary Blood - Venous - Lab Draw NO GROWTH AFTER 3 DAYS Anaerobic Blood Culture - Preliminary NO GROWTH AFTER 3 DAYS 09/01/19 19:50 Aerobic Blood Culture - Preliminary Blood - Venous NO GROWTH AFTER 3 DAYS Anaerobic Blood Culture - Preliminary NO GROWTH AFTER 3 DAYS 09/01/19 19:40 Urine Culture - Final Urine, Catheterized Rosy Albicans Med Orders - Current: Current Medications Albuterol/Ipratropium (Duoneb 3.0-0.5 Mg/3 Ml) 3 ml NEB Q6HRRT [facility] Last Admin: 09/05/19 08:38 Dose: 3 ml Amlodipine Besylate (Norvasc) 10 mg PO DAILY [facility] Last Admin: 09/05/19 09:23 Dose: 10 mg Aspirin (Aspirin) 81 mg PO DAILY [facility] Last Admin: 09/05/19 09:31 Dose: Not Given Chlorthalidone (Chlorthalidone) 25 mg PO DAILY [facility] Last Admin: 09/05/19 09:23 Dose: 25 mg Hydralazine HCl (Apresoline) 10 mg IVPUSH Q2H PRN PRN Reason: Systolic >180 / Diastolic >100 Last Admin: 08/31/19 01:25 Dose: 10 mg Norepinephrine Bitartrate 4 mg (/ Dextrose/Water) 250 mls @ 7.5 mls/hr IV TITRATE [facility]; Protocol Dextrose/Sodium Chloride (Dextrose 5%-1/2 Ns) 1,000 mls @ 50 mls/hr IV ASDIRECTED [facility] Last Admin: 09/05/19 10:21 Dose: 50 mls/hr Potassium Chloride 10 meq/ (Premix) 100 mls @ 100 mls/hr IV Q1H [facility] Stop: 09/05/19 12:59 Last Admin: 09/05/19 10:20 Dose: 100 mls/hr Metoclopramide HCl (Reglan) 5 mg IVPUSH Q8H [facility] Last Admin: 09/05/19 09:23 Dose: 5 mg Morphine Sulfate (Morphine) 1 mg IVPUSH Q4H PRN PRN Reason: Pain Last Admin: 09/04/19 21:08 Dose: 1 mg Pantoprazole Sodium (Protonix Iv) 40 mg IVPUSH DAILY [facility] Last Admin: 09/05/19 09:22 Dose: 40 mg Potassium Chloride (Potassium Chloride Solution) 20 meq NGTUBE BID [facility] Last Admin: 09/05/19 09:22 Dose: 20 meq Sodium Chloride (Saline Flush) 10 ml FLUSH ASDIRECTED PRN PRN Reason: Keep Vein Open Last Admin: 09/04/19 21:12 Dose: 10 ml Discontinued Medications Atropine Sulfate (Atropine 0.1 Mg/Ml) 0.5 mg IVPUSH ONETIME ONE Stop: 08/27/19 07:57 Last Admin: 08/27/19 08:09 Dose: 0.5 mg Bumetanide (Bumex) 1 mg IVPUSH ONETIME ONE Stop: 08/25/19 22:49 Last Admin: 08/26/19 00:07 Dose: 1 mg Bumetanide (Bumex) 1 mg IVPUSH BID [facility] Last Admin: 08/28/19 08:06 Dose: 1 mg Dextrose/Water (Dextrose 50% In Water) 25 ml IVPUSH NOW STA Stop: 08/27/19 05:41 Last Admin: 08/27/19 05:47 Dose: 25 ml Enoxaparin Sodium (Lovenox) 70 mg SUBCUT Q24H [facility] Last Admin: 08/28/19 11:48 Dose: 70 mg Ephedrine Sulfate (Ephedrine In Ns) Confirm Administered Dose 25 mg .ROUTE .STK- MED ONE Stop: 08/24/19 21:32 Etomidate (Amidate) 40 mg IVPUSH .STK-MED ONE Stop: 08/24/19 15:01 Fentanyl (Sublimaze) Confirm Administered Dose 250 mcg .ROUTE .STK-MED ONE Stop: 08/24/19 18:10 Furosemide (Lasix) 60 mg IVPUSH NOW ONE Stop: 09/01/19 16:59 Last Admin: 09/01/19 17:15 Dose: 60 mg Furosemide (Lasix) 60 mg IVPUSH ONETIME ONE Stop: 09/02/19 00:01 Last Admin: 09/01/19 23:55 Dose: 60 mg Furosemide (Lasix) 40 mg IVPUSH NOW ONE Stop: 09/02/19 10:49 Last Admin: 09/02/19 11:59 Dose: 40 mg Furosemide (Lasix) 40 mg IVPUSH NOW ONE Stop: 09/02/19 18:19 Last Admin: 09/02/19 18:26 Dose: 40 mg Furosemide (Lasix) 40 mg IVPUSH BID [facility] Last Admin: 09/03/19 21:03 Dose: 40 mg Furosemide (Lasix) 20 mg IVPUSH DAILY [facility] Last Admin: 09/04/19 08:34 Dose: 20 mg Heparin Sodium (Porcine) (Heparin Sodium) 5,000 units IVPUSH .BOLUS ONE Stop: 08/25/19 13:27 Last Admin: 08/25/19 14:11 Dose: 5,000 units Heparin Sodium (Porcine) (Heparin Lock Flush 100 Units/Ml) Confirm Administered Dose 500 units .ROUTE .STK-MED ONE Stop: 08/25/19 22:38 Last Admin: 08/25/19 23:02 Dose: 500 units Hydralazine HCl (Apresoline) 10 mg IVPUSH ONETIME ONE Stop: 08/29/19 07:47 Last Admin: 08/29/19 08:08 Dose: 10 mg Hydralazine HCl (Apresoline) 10 mg IVPUSH ONETIME ONE Stop: 08/30/19 11:55 Last Admin: 08/30/19 12:03 Dose: 10 mg Hydrocortisone Sodium Succinate (Solu-Cortef) 50 mg IV Q8H [facility] Last Admin: 08/29/19 12:21 Dose: 50 mg Hydromorphone HCl (Dilaudid) 0.5 mg IVPUSH ONETIME ONE Stop: 08/24/19 07:28 Last Admin: 08/24/19 08:15 Dose: 0.5 mg Sodium Chloride (Normal Saline) 1,000 mls @ 1,000 mls/hr IV .BOLUS STA Stop: 08/24/19 08:25 Last Admin: 08/24/19 08:13 Dose: 1,000 mls/hr Cefepime HCl 2 gm/ Premix 50 mls @ 100 mls/hr IV ONETIME ONE Stop: 08/24/19 13:18 Last Admin: 08/24/19 13:19 Dose: 100 mls/hr Lactated Ringer's (Ringers, Lactated) 1,100 mls @ 1,000 mls/hr IV .BOLUS ONE Stop: 08/24/19 14:13 Last Admin: 08/24/19 13:40 Dose: 1,000 mls/hr Levofloxacin/Dextrose 750 mg/ (Premix) 150 mls @ 100 mls/hr IV ONETIME ONE Stop: 08/24/19 15:07 Last Admin: 08/24/19 16:03 Dose: 100 mls/hr Piperacillin Sod/Tazobactam (Sod 4.5 gm/ Sodium Chloride) 100 mls @ 25 mls/hr IV Q8H [facility] Last Admin: 08/26/19 05:13 Dose: 25 mls/hr Vancomycin HCl 1 gm/ Sodium (Chloride) 250 mls @ 250 mls/hr IV ONETIME ONE Stop: 08/24/19 14:37 Last Admin: 08/24/19 16:06 Dose: 250 mls/hr Fentanyl 2,500 mcg/ Sodium (Chloride) 250 mls @ 7.27 mls/hr IV TITRATE [facility]; Protocol Last Titration: 08/28/19 04:23 Dose: 0 mcg/kg/hr, 0 mls/hr Midazolam HCl 50 mg/ Sodium (Chloride) 50 mls @ 0.5 mls/hr IV TITRATE [facility]; Protocol Stop: 08/25/19 15:29 Last Titration: 08/25/19 11:57 Dose: 2 mg/hr, 2 mls/hr Lactated Ringer's (Ringers, Lactated) 1,000 mls @ 125 mls/hr IV ASDIRECTED [facility] Last Admin: 08/25/19 01:00 Dose: 125 mls/hr Norepinephrine Bitartrate 4 mg (/ Dextrose/Water) 250 mls @ 7.5 mls/hr IV TITRATE [facility]; Protocol Last Titration: 08/27/19 07:25 Dose: 0 mcg/min, 0 mls/hr Sodium Chloride (Normal Saline) Confirm Administered Dose 1,000 mls @ as directed .ROUTE .STK-MED ONE Stop: 08/24/19 17:09 Last Admin: 08/24/19 17:16 Dose: 1 mls/hr Lactated Ringer's (Ringers, Lactated) Confirm Administered Dose 1,000 mls @ as directed .ROUTE .STK-MED ONE Stop: 08/24/19 18:34 Lactated Ringer's (Ringers, Lactated) Confirm Administered Dose 1,000 mls @ as directed .ROUTE .STK-MED ONE Stop: 08/24/19 19:10 Lactated Ringer's (Ringers, Lactated) Confirm Administered Dose 1,000 mls @ as directed .ROUTE .STK-MED ONE Stop: 08/24/19 19:46 Lactated Ringer's (Ringers, Lactated) Confirm Administered Dose 1,000 mls @ as directed .ROUTE .STK-MED ONE Stop: 08/24/19 20:40 Lactated Ringer's (Ringers, Lactated) 1,000 mls @ 250 mls/hr IV ASDIRECTED [facility] Last Infusion: 08/26/19 12:28 Dose: Infused Lactated Ringer's (Ringers, Lactated) 1,000 mls @ 999 mls/hr IV .BOLUS ONE Stop: 08/25/19 09:03 Last Admin: 08/25/19 08:10 Dose: 999 mls/hr Heparin Sodium/Dextrose (Heparin 25,000 Units In D5w 500 Ml) 25,000 units in 500 mls @ 26 mls/hr IV TITRATE [facility]; Protocol Last Admin: 08/26/19 08:24 Dose: 22 units/kg/hr, 32.013 mls/hr Dopamine HCl/Dextrose (Dopamine In D5w 400 Mg/250 Ml) 400 mg in 250 mls @ 5.457 mls/hr IV TITRATE [facility]; Protocol Last Titration: 08/26/19 15:20 Dose: 0 mcg/kg/min, 0 mls/hr Lactated Ringer's (Ringers, Lactated) 2,000 mls @ 999 mls/hr IV .BOLUS ONE Stop: 08/25/19 17:52 Last Admin: 08/25/19 16:11 Dose: 999 mls/hr Lactated Ringer's (Ringers, Lactated) 1,000 mls @ 999 mls/hr IV .BOLUS ONE Stop: 08/25/19 17:13 Last Admin: 08/25/19 16:48 Dose: 999 mls/hr Midazolam HCl 50 mg/ Sodium (Chloride) 50 mls @ 0.5 mls/hr IV TITRATE [facility]; Protocol Last Titration: 08/27/19 07:55 Dose: 0 mg/hr, 0 mls/hr Albumin Human (Flexbumin 25%) 25 gm in 100 mls @ 100 mls/hr IV Q1H [facility] Stop: 08/26/19 00:46 Last Admin: 08/26/19 00:07 Dose: 100 mls/hr Albumin Human (Flexbumin 25%) 12.5 gm in 50 mls @ 100 mls/hr IV Q8H [facility] Stop: 08/29/19 07:01 Last Admin: 08/29/19 05:59 Dose: 100 mls/hr Lactated Ringer's (Ringers, Lactated) 1,000 mls @ 200 mls/hr IV ASDIRECTED [facility] Last Infusion: 08/26/19 12:30 Dose: 100 mls/hr Magnesium Sulfate 4 gm/ Premix 100 mls @ 25 mls/hr IV ONETIME ONE Stop: 08/26/19 07:31 Last Admin: 08/26/19 06:48 Dose: 25 mls/hr Piperacillin Sod/Tazobactam (Sod 4.5 gm/ Sodium Chloride) 100 mls @ 25 mls/hr IV Q12H [facility] Stop: 08/29/19 10:00 Last Admin: 08/29/19 07:09 Dose: Not Given Lactated Ringer's (Ringers, Lactated) 1,000 mls @ 100 mls/hr IV ASDIRECTED [facility] Last Admin: 08/26/19 18:09 Dose: 100 mls/hr Dextrose/Water (Dextrose 10% In Water) 1,000 mls @ 25 mls/hr IV ASDIRECTED [facility] Dextrose/Water (Dextrose 10% In Water) 1,000 mls @ 25 mls/hr IV ASDIRECTED [facility] Last Admin: 08/27/19 05:52 Dose: 25 mls/hr Dextrose/Water (Dextrose 10% In Water) Confirm Administered Dose 1,000 mls @ as directed .ROUTE .[facility]-MED ONE Stop: 08/27/19 05:47 Last Admin: 08/27/19 05:56 Dose: Not Given Potassium Cl/Dextrose/Lact Ringer's (D5 Lr With 20 Meq Kcl) 1,000 mls @ 100 mls /hr IV ASDIRECTED [facility] Last Infusion: 08/28/19 11:57 Dose: 50 mls/hr Potassium Chloride 10 meq/ (Premix) 100 mls @ 100 mls/hr IV Q1H [facility] Stop: 08/27/19 12:59 Last Admin: 08/27/19 12:55 Dose: 100 mls/hr Potassium Chloride 10 meq/ (Premix) 100 mls @ 100 mls/hr IV Q1H [facility] Stop: 08/28/19 15:29 Last Admin: 08/28/19 15:11 Dose: 100 mls/hr Potassium Cl/Dextrose/Lact Ringer's (D5 Lr With 20 Meq Kcl) 1,000 mls @ 50 mls/ hr IV ASDIRECTED [facility] Last Admin: 08/30/19 18:01 Dose: 50 mls/hr Piperacillin Sod/Tazobactam (Sod 4.5 gm/ Sodium Chloride) 100 mls @ 25 mls/hr IV Q8H [facility] Last Admin: 09/03/19 07:04 Dose: 25 mls/hr Potassium Chloride 10 meq/ (Premix) 100 mls @ 100 mls/hr IV Q1H [facility] Stop: 08/29/19 17:59 Last Admin: 08/29/19 17:47 Dose: 100 mls/hr Magnesium Sulfate 2 gm/ Premix 50 mls @ 25 mls/hr IV 1200,2100 [facility] Stop: 08/29/19 22:59 Last Admin: 08/29/19 20:25 Dose: 25 mls/hr Sodium Chloride (Normal Saline) 1,000 mls @ 999 mls/hr IRR ONETIME ONE Stop: 08/29/19 13:07 Last Admin: 08/29/19 12:52 Dose: 999 mls/hr Argatroban 250 mg/ Sodium (Chloride) 252.5 mls @ 9.69 mls/hr IV TITRATE [facility]; Protocol Last Titration: 09/03/19 08:55 Dose: 0 mcg/kg/min, 0 mls/hr Sodium Chloride (Normal Saline) 100 mls @ 60 mls/hr IV ASDIRECTED [facility] Stop: 08/30/19 13:00 Potassium Chloride 10 meq/ (Premix) 100 mls @ 100 mls/hr IV Q1H [facility] Stop: 08/31/19 11:29 Last Admin: 08/31/19 11:42 Dose: 100 mls/hr Dextrose/Water (Dextrose 5% In Water) Confirm Administered Dose 250 mls @ as directed .ROUTE .STK-MED ONE Stop: 09/01/19 15:54 Last Admin: 09/01/19 18:13 Dose: Not Given Dextrose/Water (Dextrose 5% In Water) 1,000 mls @ 50 mls/hr IV ASDIRECTED [facility] Last Infusion: 09/02/19 20:45 Dose: 25 mls/hr Sodium Chloride (Normal Saline) 100 mls @ 75 mls/hr IV ASDIRECTED [facility] Linezolid 600 mg/ Premix 300 mls @ 300 mls/hr IV Q12H [facility] Last Admin: 09/01/19 19:54 Dose: Not Given Linezolid 600 mg/ Premix 300 mls @ 300 mls/hr IV Q12H [facility] Last Admin: 09/03/19 12:01 Dose: Not Given Potassium Chloride 10 meq/ (Premix) 100 mls @ 100 mls/hr IV Q1H [facility] Stop: 09/03/19 12:14 Last Admin: 09/03/19 12:50 Dose: 100 mls/hr Dextrose/Water (Dextrose 5% In Water) 1,000 mls @ 50 mls/hr IV ASDIRECTED [facility] Last Admin: 09/03/19 11:07 Dose: 50 mls/hr Potassium Chloride 10 meq/ (Premix) 100 mls @ 100 mls/hr IV Q1H [facility] Stop: 09/04/19 11:59 Last Admin: 09/04/19 11:33 Dose: 100 mls/hr Iopamidol (Isovue-370 (76%)) 100 ml IVPUSH ONETIME ONE Stop: 09/01/19 17:31 Last Admin: 09/01/19 17:31 Dose: 100 ml Levothyroxine Sodium (Synthroid) 75 mcg PO DAILY [facility] Morphine Sulfate (Morphine) 1 mg IVPUSH ONETIME ONE Stop: 08/29/19 07:47 Last Admin: 08/29/19 08:09 Dose: 1 mg Non-Formulary Medication (Losartan) 50 mg PO BEDTIME [facility] Norepinephrine Bitartrate (Levophed) Confirm Administered Dose 4 mg .ROUTE .STK- MED ONE Stop: 08/24/19 16:39 Last Admin: 08/24/19 16:47 Dose: Not Given Norepinephrine Bitartrate (Levophed) Confirm Administered Dose 4 mg .ROUTE .STK- MED ONE Stop: 09/01/19 15:54 Last Admin: 09/01/19 18:12 Dose: Not Given Ondansetron HCl (Zofran) 4 mg IVPUSH ONETIME ONE Stop: 08/24/19 07:27 Last Admin: 08/24/19 08:13 Dose: 4 mg Potassium Chloride (Klor-Con M20) 20 meq PO BID [facility] Last Admin: 09/01/19 08:51 Dose: 20 meq Potassium Chloride (Potassium Chloride Solution) 40 meq NGTUBE ONETIME ONE Stop: 09/01/19 12:01 Last Admin: 09/01/19 11:39 Dose: 40 meq Psyllium Husk (Metamucil Sugar Free) 1 packet PO BID [facility] Last Admin: 09/04/19 08:35 Dose: 1 packet Sodium Chloride (Saline Flush) 10 ml FLUSH ONETIME ONE Stop: 08/30/19 09:01 Last Admin: 08/30/19 09:09 Dose: 10 ml Succinylcholine Chloride (Quelicin) 200 mg .ROUTE .STK-MED ONE Stop: 08/24/19 15:01 Vecuronium [place] (Vecuronium) Confirm Administered Dose 10 mg .ROUTE .STK-MED ONE Stop: 08/24/19 20:13 - Exam Wound/Incisions: Healing Well, No Drainage (drainage now normal) Quality Assessment: Supplemental Oxygen General: Alert, Cooperative, No Acute Distress GI/Abdominal Exam: Soft, No Organomegaly, No Distention, Tender (appropriately) , Other (wound packed, healing well.) Skin: Warm, Dry, Intact Sepsis Event Note - Evaluation Sepsis Screening Result: No Definite Risk - Focused Exam Vital Signs: Vital Signs Temp Pulse Resp BP BP Pulse Ox Pulse Ox 09/05/19 10:00 88 22 H 95 09/05/19 09:30 87 21 H 96 09/05/19 09:23 168/57 H 09/05/19 09:00 85 18 96 09/05/19 08:38 95 09/05/19 08:34 20 09/05/19 08:14 88 24 H 168/57 H 94 L 09/05/19 08:13 102 H 22 H 100 09/05/19 08:01 87 23 H 172/56 H 95 09/05/19 08:00 98.5 F 89 16 95 09/05/19 07:30 87 23 H 92 L 09/05/19 07:00 88 19 95 09/05/19 06:45 87 23 H 159/54 H 95 09/05/19 06:44 83 24 H 95 09/05/19 06:35 85 24 H 159/51 H 95 09/05/19 06:34 84 21 H 95 09/05/19 06:30 85 24 H 95 09/05/19 06:01 85 19 154/51 H 94 L 09/05/19 06:00 84 19 95 09/05/19 05:30 86 32 H 95 09/05/19 05:26 96 09/05/19 05:00 88 20 94 L 09/05/19 04:30 88 18 93 L 09/05/19 04:02 94 L 09/05/19 04:00 98.6 F 17 148/46 H 94 L 09/05/19 03:30 93 20 92 L 09/05/19 03:00 90 21 H 93 L 09/05/19 02:49 94 L 09/05/19 02:30 85 19 94 L 09/05/19 02:00 85 17 130/43 L 92 L 09/05/19 01:30 84 16 94 L 09/05/19 01:00 84 22 H 93 L 09/05/19 00:30 75 18 93 L 09/05/19 00:00 98.2 F 17 127/41 L 92 L 09/04/19 23:30 86 15 90 L 09/04/19 23:00 80 16 92 L 09/04/19 22:30 81 15 92 L Date Exam was Performed: 09/05/19 Time Exam was Performed: 10:25 - Problem List Review Problem List Initiated/Reviewed/Updated: No - My Orders Last 24 Hours: Active Orders 24 hr Category Date Time Status Communication Order [RC] ASDIRECTED Care 09/04/19 11:49 Active CBC WITH AUTO DIFF [HEME] AM Lab 09/06/19 05:11 Ordered CBC WITH AUTO DIFF [HEME] AM Lab 09/07/19 05:11 Ordered CMP [COMPREHENSIVE METABOLIC PN,CMP] [CHEM] AM Lab 09/06/19 05:11 Ordered CMP [COMPREHENSIVE METABOLIC PN,CMP] [CHEM] AM Lab 09/07/19 05:11 Ordered MAGNESIUM [CHEM] AM Lab 09/06/19 05:11 Ordered MAGNESIUM [CHEM] AM Lab 09/07/19 05:11 Ordered Metoclopramide [Reglan] Med 09/05/19 09:00 Active 5 mg IVPUSH Q8H Potassium Chloride [KCl 10 MEQ in Water 100 ML] 10 meq Med 09/05/19 09:00 Active Premix Bag 1 bag IV Q1H Medication Orders Albuterol/Ipratropium (Duoneb 3.0-0.5 Mg/3 Ml) 3 ml NEB Q6HRRT [facility] Last Admin: 09/05/19 08:38 Dose: 3 ml Admin: 09/05/19 02:49 Dose: 3 ml Admin: 09/04/19 20:14 Dose: 3 ml Admin: 09/04/19 14:20 Dose: 3 ml Admin: 09/04/19 08:14 Dose: 3 ml Admin: 09/04/19 02:25 Dose: 3 ml Admin: 09/03/19 20:21 Dose: 3 ml Admin: 09/03/19 14:11 Dose: 3 ml Admin: 09/03/19 08:19 Dose: 3 ml Admin: 09/03/19 02:12 Dose: 3 ml Admin: 09/02/19 20:51 Dose: 3 ml Admin: 09/02/19 14:27 Dose: 3 ml Admin: 09/02/19 08:31 Dose: 3 ml Admin: 09/02/19 02:45 Dose: 3 ml Admin: 09/01/19 20:26 Dose: 3 ml Admin: 09/01/19 16:16 Dose: 3 ml Amlodipine Besylate (Norvasc) 10 mg PO DAILY [facility] Last Admin: 09/05/19 09:23 Dose: 10 mg Admin: 09/04/19 08:34 Dose: 10 mg Admin: 09/03/19 09:39 Dose: Admin: 09/02/19 08:08 Dose: 10 mg Admin: 09/01/19 08:51 Dose: 10 mg Admin: 08/31/19 09:50 Dose: 10 mg Admin: 08/30/19 09:10 Dose: 10 mg Admin: 08/29/19 12:51 Dose: 10 mg Aspirin (Aspirin) 81 mg PO DAILY [facility] Last Admin: 09/05/19 09:31 Dose: Admin: 09/04/19 08:34 Dose: 81 mg Chlorthalidone (Chlorthalidone) 25 mg PO DAILY [facility] Last Admin: 09/05/19 09:23 Dose: 25 mg Admin: 09/04/19 08:34 Dose: 25 mg Admin: 09/03/19 09:39 Dose: Admin: 09/02/19 08:09 Dose: 25 mg Admin: 09/01/19 08:50 Dose: 25 mg Admin: 08/31/19 09:50 Dose: 25 mg Admin: 08/30/19 10:58 Dose: 25 mg Hydralazine HCl (Apresoline) 10 mg IVPUSH Q2H PRN PRN Reason: Systolic >180 / Diastolic >100 Last Admin: 08/31/19 01:25 Dose: 10 mg Admin: 08/30/19 21:48 Dose: 10 mg Admin: 08/30/19 18:01 Dose: 10 mg Norepinephrine Bitartrate 4 mg (/ Dextrose/Water) 250 mls @ 7.5 mls/hr IV TITRATE [facility]; Protocol Dextrose/Sodium Chloride (Dextrose 5%-1/2 Ns) 1,000 mls @ 50 mls/hr IV ASDIRECTED [facility] Last Admin: 09/05/19 10:21 Dose: 50 mls/hr Infusion: 09/05/19 10:21 Dose: 50 mls/hr Admin: 09/04/19 15:04 Dose: 50 mls/hr Infusion: 09/04/19 12:04 Dose: 50 mls/hr Admin: 09/03/19 16:04 Dose: 50 mls/hr Potassium Chloride 10 meq/ (Premix) 100 mls @ 100 mls/hr IV Q1H [facility] Stop: 09/05/19 12:59 Last Admin: 09/05/19 10:20 Dose: 100 mls/hr Infusion: 09/05/19 10:20 Dose: 100 mls/hr Admin: 09/05/19 09:22 Dose: 100 mls/hr Metoclopramide HCl (Reglan) 5 mg IVPUSH Q8H [facility] Last Admin: 09/05/19 09:23 Dose: 5 mg Morphine Sulfate (Morphine) 1 mg IVPUSH Q4H PRN PRN Reason: Pain Last Admin: 09/04/19 21:08 Dose: 1 mg Admin: 09/02/19 08:50 Dose: 1 mg Admin: 09/02/19 00:05 Dose: 1 mg Admin: 09/01/19 02:33 Dose: 1 mg Admin: 08/31/19 21:26 Dose: 1 mg Admin: 08/31/19 14:27 Dose: 1 mg Admin: 08/31/19 00:05 Dose: 1 mg Admin: 08/30/19 05:17 Dose: 1 mg Admin: 08/29/19 20:28 Dose: 1 mg Admin: 08/29/19 17:44 Dose: 1 mg Admin: 08/29/19 12:50 Dose: 1 mg Pantoprazole Sodium (Protonix Iv) 40 mg IVPUSH DAILY [facility] Last Admin: 09/05/19 09:22 Dose: 40 mg Admin: 09/04/19 08:35 Dose: 40 mg Admin: 09/03/19 09:30 Dose: 40 mg Admin: 09/02/19 08:00 Dose: 40 mg Admin: 09/01/19 08:50 Dose: 40 mg Admin: 08/31/19 09:49 Dose: 40 mg Admin: 08/30/19 09:06 Dose: 40 mg Admin: 08/29/19 08:08 Dose: 40 mg Admin: 08/28/19 08:06 Dose: 40 mg Admin: 08/27/19 08:34 Dose: 40 mg Admin: 08/26/19 08:40 Dose: 40 mg Admin: 08/25/19 08:19 Dose: 40 mg Potassium Chloride (Potassium Chloride Solution) 20 meq NGTUBE BID CHUY Last Admin: 09/05/19 09:22 Dose: 20 meq Admin: 09/04/19 21:12 Dose: 20 meq Admin: 09/04/19 08:34 Dose: 20 meq Admin: 09/03/19 21:03 Dose: 20 meq Admin: 09/03/19 09:39 Dose: Admin: 09/02/19 20:21 Dose: 20 meq Admin: 09/02/19 08:02 Dose: 20 meq Admin: 09/01/19 20:20 Dose: 20 meq Sodium Chloride (Saline Flush) 10 ml FLUSH ASDIRECTED PRN PRN Reason: Keep Vein Open Last Admin: 09/04/19 21:12 Dose: 10 ml Admin: 09/03/19 21:06 Dose: 10 ml Admin: 09/01/19 18:31 Dose: 10 ml Admin: 08/24/19 08:14 Dose: 10 ml - Assessment Assessment (Free Text/Narrative):: Patient is doing well. NGT has been removed and DHT placed. - Plan Plan (Free Text/Narrative):: - COntinue daily ASA - Wound: appears well. continue BID packing on the wound except that we will do packing with most dressing NOT dry dressing as the wound drainage has subsided. Patient will continue with wound packing upon discharge until the wound heals - DHT in placed for TF, however the patient has not tolerated TF > 40cc/hr. We will start Reglan 5mg TID to see if she can tolerate higher TF rate. - continue PT/OT - Swallow eval today
--- NOTE | 2019-09-05 11:33 | PCM.PN ---
- General Info Date of Service: 09/05/19 Admission Dx/Problem (Free Text): Decreased urine output Norepinephrine drip Fentanyl and versed for sedation LR for fluid repletion Levaquin, vancomycin and Zosyn Subjective Update: Jocelyn continues to improve. She is still having difficulty tolerating tube feeds. Yesterday we switched out her NG tube for Dobbhoff tube, but it is in the gastric antrum and not past the pylorus. Dr. Rucker saw the patient this morning and recommended Reglan 5 mg 3 times daily and Carafate because of the poor feedings and because of some blood when doing residual checks. Patient is talking this morning and certainly more active. - Review of Systems General: Reports: Other (Patient is without any complaints.) - Patient Data Vitals - Most Recent: Last Vital Signs Temp 98.5 F 09/05/19 08:00 Pulse 88 09/05/19 10:00 Resp 22 H 09/05/19 10:00 BP 168/57 H 09/05/19 09:23 Pulse Ox 95 09/05/19 10:00 Weight - Most Recent: 154 lb I&O - Last 24 Hours: Intake & Output 09/04/19 09/05/19 09/05/19 22:59 06:59 14:59 Intake Total 974 944 Output Total 1150 475 400 Balance -176 469 -400 Lab Results Last 24 Hours: Laboratory Results - last 24 hr 08/29/19 09/05/19 09/05/19 Range/Units 06:55 08:12 08:12 WBC 17.30 H (3.98-10.04) K/mm3 RBC 3.13 L (3.98-5.22) M/mm3 Hgb 8.6 L (11.2-15.7) gm/dl Hct 26.2 L (34.1-44.9) % MCV 83.7 (79.4-94.8) fl MCH 27.5 (25.6-32.2) pg MCHC 32.8 (32.2-35.5) g/dl RDW Std Deviation 71.5 H (36.4-46.3) fL Plt Count 337 (182-369) K/mm3 MPV 10.7 (9.4-12.3) fl Neut % (Auto) 79.5 H (34.0-71.1) % Lymph % (Auto) 9.9 L (19.3-51.7) % Gray % (Auto) 9.1 (4.7-12.5) % Eos % (Auto) 0.6 L (0.7-5.8) Baso % (Auto) 0.1 (0.1-1.2) % Neut # (Auto) 13.75 H (1.56-6.13) K/mm3 Lymph # (Auto) 1.72 (1.18-3.74) K/mm3 Gray # (Auto) 1.57 H (0.24-0.36) K/mm3 Eos # (Auto) 0.11 (0.04-0.36) K/mm3 Baso # (Auto) 0.02 (0.01-0.08) K/mm3 Manual Slide Review Abnormal smear Sodium 136 (136-145) mEq/L Potassium 3.2 L (3.5-5.1) mEq/L Chloride 102 (98-107) mEq/L Carbon Dioxide 24 (21-32) mEq/L Anion Gap 13.2 (5-15) BUN 14 (7-18) mg/dL Creatinine 1.1 H (0.55-1.02) mg/dL Est Cr Clr Drug Dosing 30.92 mL/min Estimated GFR (MDRD) 47 (>60) mL/min BUN/Creatinine Ratio 12.7 L (14-18) Glucose 117 H (83-115) mg/dL Calcium 8.4 L (8.5-10.1) mg/dL Magnesium 2.0 (1.8-2.4) mg/dl Total Bilirubin 0.5 (0.2-1.0) mg/dL AST 22 (15-37) U/L ALT 13 L (14-59) U/L Alkaline Phosphatase 63 (46-116) U/L Total Protein 5.8 L (6.4-8.2) g/dl Albumin 2.0 L (3.4-5.0) g/dl Globulin 3.8 gm/dL Albumin/Globulin Ratio 0.5 L (1-2) Miscellaneous Test Comment Gerardo Results Last 24 Hours: Microbiology 09/01/19 20:20 Aerobic Blood Culture - Preliminary Blood - Venous - Lab Draw NO GROWTH AFTER 3 DAYS Anaerobic Blood Culture - Preliminary NO GROWTH AFTER 3 DAYS 12/22/19 19:50 Aerobic Blood Culture - Preliminary Blood - Venous NO GROWTH AFTER 3 DAYS Anaerobic Blood Culture - Preliminary NO GROWTH AFTER 3 DAYS 09/01/19 19:40 Urine Culture - Final Urine, Catheterized Rosy Albicans Med Orders - Current: Current Medications Albuterol/Ipratropium (Duoneb 3.0-0.5 Mg/3 Ml) 3 ml NEB Q6HRRT [facility] Last Admin: 09/05/19 08:38 Dose: 3 ml Amlodipine Besylate (Norvasc) 10 mg PO DAILY [facility] Last Admin: 09/05/19 09:23 Dose: 10 mg Aspirin (Aspirin) 81 mg PO DAILY [facility] Last Admin: 09/05/19 09:31 Dose: Not Given Chlorthalidone (Chlorthalidone) 25 mg PO DAILY [facility] Last Admin: 09/05/19 09:23 Dose: 25 mg Hydralazine HCl (Apresoline) 10 mg IVPUSH Q2H PRN PRN Reason: Systolic >180 / Diastolic >100 Last Admin: 08/31/19 01:25 Dose: 10 mg Norepinephrine Bitartrate 4 mg (/ Dextrose/Water) 250 mls @ 7.5 mls/hr IV TITRATE [facility]; Protocol Dextrose/Sodium Chloride (Dextrose 5%-1/2 Ns) 1,000 mls @ 50 mls/hr IV ASDIRECTED [facility] Last Admin: 09/05/19 10:21 Dose: 50 mls/hr Potassium Chloride 10 meq/ (Premix) 100 mls @ 100 mls/hr IV Q1H [facility] Stop: 09/05/19 12:59 Last Admin: 09/05/19 11:23 Dose: 100 mls/hr Metoclopramide HCl (Reglan) 5 mg IVPUSH Q8H [facility] Last Admin: 09/05/19 09:23 Dose: 5 mg Morphine Sulfate (Morphine) 1 mg IVPUSH Q4H PRN PRN Reason: Pain Last Admin: 09/04/19 21:08 Dose: 1 mg Pantoprazole Sodium (Protonix Iv) 40 mg IVPUSH DAILY [facility] Last Admin: 09/05/19 09:22 Dose: 40 mg Potassium Chloride (Potassium Chloride Solution) 20 meq NGTUBE BID [facility] Last Admin: 09/05/19 09:22 Dose: 20 meq Sodium Chloride (Saline Flush) 10 ml FLUSH ASDIRECTED PRN PRN Reason: Keep Vein Open Last Admin: 09/04/19 21:12 Dose: 10 ml Sucralfate (Carafate) 1 gm NGTUBE BID [facility] Discontinued Medications Atropine Sulfate (Atropine 0.1 Mg/Ml) 0.5 mg IVPUSH ONETIME ONE Stop: 08/27/19 07:57 Last Admin: 08/27/19 08:09 Dose: 0.5 mg Bumetanide (Bumex) 1 mg IVPUSH ONETIME ONE Stop: 08/25/19 22:49 Last Admin: 08/26/19 00:07 Dose: 1 mg Bumetanide (Bumex) 1 mg IVPUSH BID [facility] Last Admin: 08/28/19 08:06 Dose: 1 mg Dextrose/Water (Dextrose 50% In Water) 25 ml IVPUSH NOW STA Stop: 08/27/19 05:41 Last Admin: 08/27/19 05:47 Dose: 25 ml Enoxaparin Sodium (Lovenox) 70 mg SUBCUT Q24H [facility] Last Admin: 08/28/19 11:48 Dose: 70 mg Ephedrine Sulfate (Ephedrine In Ns) Confirm Administered Dose 25 mg .ROUTE .STK- MED ONE Stop: 08/24/19 21:32 Etomidate (Amidate) 40 mg IVPUSH .STK-MED ONE Stop: 08/24/19 15:01 Fentanyl (Sublimaze) Confirm Administered Dose 250 mcg .ROUTE .STK-MED ONE Stop: 08/24/19 18:10 Furosemide (Lasix) 60 mg IVPUSH NOW ONE Stop: 09/01/19 16:59 Last Admin: 09/01/19 17:15 Dose: 60 mg Furosemide (Lasix) 60 mg IVPUSH ONETIME ONE Stop: 09/02/19 00:01 Last Admin: 09/01/19 23:55 Dose: 60 mg Furosemide (Lasix) 40 mg IVPUSH NOW ONE Stop: 09/02/19 10:49 Last Admin: 09/02/19 11:59 Dose: 40 mg Furosemide (Lasix) 40 mg IVPUSH NOW ONE Stop: 09/02/19 18:19 Last Admin: 09/02/19 18:26 Dose: 40 mg Furosemide (Lasix) 40 mg IVPUSH BID [facility] Last Admin: 09/03/19 21:03 Dose: 40 mg Furosemide (Lasix) 20 mg IVPUSH DAILY [facility] Last Admin: 09/04/19 08:34 Dose: 20 mg Heparin Sodium (Porcine) (Heparin Sodium) 5,000 units IVPUSH .BOLUS ONE Stop: 08/25/19 13:27 Last Admin: 08/25/19 14:11 Dose: 5,000 units Heparin Sodium (Porcine) (Heparin Lock Flush 100 Units/Ml) Confirm Administered Dose 500 units .ROUTE .STK-MED ONE Stop: 08/25/19 22:38 Last Admin: 08/25/19 23:02 Dose: 500 units Hydralazine HCl (Apresoline) 10 mg IVPUSH ONETIME ONE Stop: 08/29/19 07:47 Last Admin: 08/29/19 08:08 Dose: 10 mg Hydralazine HCl (Apresoline) 10 mg IVPUSH ONETIME ONE Stop: 08/30/19 11:55 Last Admin: 08/30/19 12:03 Dose: 10 mg Hydrocortisone Sodium Succinate (Solu-Cortef) 50 mg IV Q8H [facility] Last Admin: 08/29/19 12:21 Dose: 50 mg Hydromorphone HCl (Dilaudid) 0.5 mg IVPUSH ONETIME ONE Stop: 08/24/19 07:28 Last Admin: 08/24/19 08:15 Dose: 0.5 mg Sodium Chloride (Normal Saline) 1,000 mls @ 1,000 mls/hr IV .BOLUS STA Stop: 08/24/19 08:25 Last Admin: 08/24/19 08:13 Dose: 1,000 mls/hr Cefepime HCl 2 gm/ Premix 50 mls @ 100 mls/hr IV ONETIME ONE Stop: 08/24/19 13:18 Last Admin: 08/24/19 13:19 Dose: 100 mls/hr Lactated Ringer's (Ringers, Lactated) 1,100 mls @ 1,000 mls/hr IV .BOLUS ONE Stop: 08/24/19 14:13 Last Admin: 08/24/19 13:40 Dose: 1,000 mls/hr Levofloxacin/Dextrose 750 mg/ (Premix) 150 mls @ 100 mls/hr IV ONETIME ONE Stop: 08/24/19 15:07 Last Admin: 08/24/19 16:03 Dose: 100 mls/hr Piperacillin Sod/Tazobactam (Sod 4.5 gm/ Sodium Chloride) 100 mls @ 25 mls/hr IV Q8H [facility] Last Admin: 08/26/19 05:13 Dose: 25 mls/hr Vancomycin HCl 1 gm/ Sodium (Chloride) 250 mls @ 250 mls/hr IV ONETIME ONE Stop: 08/24/19 14:37 Last Admin: 08/24/19 16:06 Dose: 250 mls/hr Fentanyl 2,500 mcg/ Sodium (Chloride) 250 mls @ 7.27 mls/hr IV TITRATE [facility]; Protocol Last Titration: 08/28/19 04:23 Dose: 0 mcg/kg/hr, 0 mls/hr Midazolam HCl 50 mg/ Sodium (Chloride) 50 mls @ 0.5 mls/hr IV TITRATE [facility]; Protocol Stop: 08/25/19 15:29 Last Titration: 08/25/19 11:57 Dose: 2 mg/hr, 2 mls/hr Lactated Ringer's (Ringers, Lactated) 1,000 mls @ 125 mls/hr IV ASDIRECTED [facility] Last Admin: 08/25/19 01:00 Dose: 125 mls/hr Norepinephrine Bitartrate 4 mg (/ Dextrose/Water) 250 mls @ 7.5 mls/hr IV TITRATE [facility]; Protocol Last Titration: 08/27/19 07:25 Dose: 0 mcg/min, 0 mls/hr Sodium Chloride (Normal Saline) Confirm Administered Dose 1,000 mls @ as directed .ROUTE .STK-MED ONE Stop: 08/24/19 17:09 Last Admin: 08/24/19 17:16 Dose: 1 mls/hr Lactated Ringer's (Ringers, Lactated) Confirm Administered Dose 1,000 mls @ as directed .ROUTE .STK-MED ONE Stop: 08/24/19 18:34 Lactated Ringer's (Ringers, Lactated) Confirm Administered Dose 1,000 mls @ as directed .ROUTE .STK-MED ONE Stop: 08/24/19 19:10 Lactated Ringer's (Ringers, Lactated) Confirm Administered Dose 1,000 mls @ as directed .ROUTE .STK-MED ONE Stop: 08/24/19 19:46 Lactated Ringer's (Ringers, Lactated) Confirm Administered Dose 1,000 mls @ as directed .ROUTE .STK-MED ONE Stop: 08/24/19 20:40 Lactated Ringer's (Ringers, Lactated) 1,000 mls @ 250 mls/hr IV ASDIRECTED [facility] Last Infusion: 08/26/19 12:28 Dose: Infused Lactated Ringer's (Ringers, Lactated) 1,000 mls @ 999 mls/hr IV .BOLUS ONE Stop: 08/25/19 09:03 Last Admin: 08/25/19 08:10 Dose: 999 mls/hr Heparin Sodium/Dextrose (Heparin 25,000 Units In D5w 500 Ml) 25,000 units in 500 mls @ 26 mls/hr IV TITRATE [facility]; Protocol Last Admin: 08/26/19 08:24 Dose: 22 units/kg/hr, 32.013 mls/hr Dopamine HCl/Dextrose (Dopamine In D5w 400 Mg/250 Ml) 400 mg in 250 mls @ 5.457 mls/hr IV TITRATE [facility]; Protocol Last Titration: 08/26/19 15:20 Dose: 0 mcg/kg/min, 0 mls/hr Lactated Ringer's (Ringers, Lactated) 2,000 mls @ 999 mls/hr IV .BOLUS ONE Stop: 08/25/19 17:52 Last Admin: 08/25/19 16:11 Dose: 999 mls/hr Lactated Ringer's (Ringers, Lactated) 1,000 mls @ 999 mls/hr IV .BOLUS ONE Stop: 08/25/19 17:13 Last Admin: 08/25/19 16:48 Dose: 999 mls/hr Midazolam HCl 50 mg/ Sodium (Chloride) 50 mls @ 0.5 mls/hr IV TITRATE [facility]; Protocol Last Titration: 08/27/19 07:55 Dose: 0 mg/hr, 0 mls/hr Albumin Human (Flexbumin 25%) 25 gm in 100 mls @ 100 mls/hr IV Q1H [facility] Stop: 08/26/19 00:46 Last Admin: 08/26/19 00:07 Dose: 100 mls/hr Albumin Human (Flexbumin 25%) 12.5 gm in 50 mls @ 100 mls/hr IV Q8H [facility] Stop: 08/29/19 07:01 Last Admin: 08/29/19 05:59 Dose: 100 mls/hr Lactated Ringer's (Ringers, Lactated) 1,000 mls @ 200 mls/hr IV ASDIRECTED [facility] Last Infusion: 08/26/19 12:30 Dose: 100 mls/hr Magnesium Sulfate 4 gm/ Premix 100 mls @ 25 mls/hr IV ONETIME ONE Stop: 08/26/19 07:31 Last Admin: 08/26/19 06:48 Dose: 25 mls/hr Piperacillin Sod/Tazobactam (Sod 4.5 gm/ Sodium Chloride) 100 mls @ 25 mls/hr IV Q12H [facility] Stop: 08/29/19 10:00 Last Admin: 08/29/19 07:09 Dose: Not Given Lactated Ringer's (Ringers, Lactated) 1,000 mls @ 100 mls/hr IV ASDIRECTED [facility] Last Admin: 08/26/19 18:09 Dose: 100 mls/hr Dextrose/Water (Dextrose 10% In Water) 1,000 mls @ 25 mls/hr IV ASDIRECTED [facility] Dextrose/Water (Dextrose 10% In Water) 1,000 mls @ 25 mls/hr IV ASDIRECTED [facility] Last Admin: 08/27/19 05:52 Dose: 25 mls/hr Dextrose/Water (Dextrose 10% In Water) Confirm Administered Dose 1,000 mls @ as directed .ROUTE .STK-MED ONE Stop: 08/27/19 05:47 Last Admin: 08/27/19 05:56 Dose: Not Given Potassium Cl/Dextrose/Lact Ringer's (D5 Lr With 20 Meq Kcl) 1,000 mls @ 100 mls /hr IV ASDIRECTED [facility] Last Infusion: 08/28/19 11:57 Dose: 50 mls/hr Potassium Chloride 10 meq/ (Premix) 100 mls @ 100 mls/hr IV Q1H [facility] Stop: 08/27/19 12:59 Last Admin: 08/27/19 12:55 Dose: 100 mls/hr Potassium Chloride 10 meq/ (Premix) 100 mls @ 100 mls/hr IV Q1H [facility] Stop: 08/28/19 15:29 Last Admin: 08/28/19 15:11 Dose: 100 mls/hr Potassium Cl/Dextrose/Lact Ringer's (D5 Lr With 20 Meq Kcl) 1,000 mls @ 50 mls/ hr IV ASDIRECTED [facility] Last Admin: 08/30/19 18:01 Dose: 50 mls/hr Piperacillin Sod/Tazobactam (Sod 4.5 gm/ Sodium Chloride) 100 mls @ 25 mls/hr IV Q8H [facility] Last Admin: 09/03/19 07:04 Dose: 25 mls/hr Potassium Chloride 10 meq/ (Premix) 100 mls @ 100 mls/hr IV Q1H [facility] Stop: 08/29/19 17:59 Last Admin: 08/29/19 17:47 Dose: 100 mls/hr Magnesium Sulfate 2 gm/ Premix 50 mls @ 25 mls/hr IV 1200,2100 [facility] Stop: 08/29/19 22:59 Last Admin: 08/29/19 20:25 Dose: 25 mls/hr Sodium Chloride (Normal Saline) 1,000 mls @ 999 mls/hr IRR ONETIME ONE Stop: 08/29/19 13:07 Last Admin: 08/29/19 12:52 Dose: 999 mls/hr Argatroban 250 mg/ Sodium (Chloride) 252.5 mls @ 9.69 mls/hr IV TITRATE [facility]; Protocol Last Titration: 09/03/19 08:55 Dose: 0 mcg/kg/min, 0 mls/hr Sodium Chloride (Normal Saline) 100 mls @ 60 mls/hr IV ASDIRECTED [facility] Stop: 08/30/19 13:00 Potassium Chloride 10 meq/ (Premix) 100 mls @ 100 mls/hr IV Q1H [facility] Stop: 08/31/19 11:29 Last Admin: 08/31/19 11:42 Dose: 100 mls/hr Dextrose/Water (Dextrose 5% In Water) Confirm Administered Dose 250 mls @ as directed .ROUTE .STK-MED ONE Stop: 09/01/19 15:54 Last Admin: 09/01/19 18:13 Dose: Not Given Dextrose/Water (Dextrose 5% In Water) 1,000 mls @ 50 mls/hr IV ASDIRECTED [facility] Last Infusion: 09/02/19 20:45 Dose: 25 mls/hr Sodium Chloride (Normal Saline) 100 mls @ 75 mls/hr IV ASDIRECTED [facility] Linezolid 600 mg/ Premix 300 mls @ 300 mls/hr IV Q12H [facility] Last Admin: 09/01/19 19:54 Dose: Not Given Linezolid 600 mg/ Premix 300 mls @ 300 mls/hr IV Q12H [facility] Last Admin: 09/03/19 12:01 Dose: Not Given Potassium Chloride 10 meq/ (Premix) 100 mls @ 100 mls/hr IV Q1H [facility] Stop: 09/03/19 12:14 Last Admin: 09/03/19 12:50 Dose: 100 mls/hr Dextrose/Water (Dextrose 5% In Water) 1,000 mls @ 50 mls/hr IV ASDIRECTED [facility] Last Admin: 09/03/19 11:07 Dose: 50 mls/hr Potassium Chloride 10 meq/ (Premix) 100 mls @ 100 mls/hr IV Q1H [facility] Stop: 09/04/19 11:59 Last Admin: 09/04/19 11:33 Dose: 100 mls/hr Iopamidol (Isovue-370 (76%)) 100 ml IVPUSH ONETIME ONE Stop: 09/01/19 17:31 Last Admin: 09/01/19 17:31 Dose: 100 ml Levothyroxine Sodium (Synthroid) 75 mcg PO DAILY [facility] Morphine Sulfate (Morphine) 1 mg IVPUSH ONETIME ONE Stop: 08/29/19 07:47 Last Admin: 08/29/19 08:09 Dose: 1 mg Non-Formulary Medication (Losartan) 50 mg PO BEDTIME [facility] Norepinephrine Bitartrate (Levophed) Confirm Administered Dose 4 mg .ROUTE .STK- MED ONE Stop: 08/24/19 16:39 Last Admin: 08/24/19 16:47 Dose: Not Given Norepinephrine Bitartrate (Levophed) Confirm Administered Dose 4 mg .ROUTE .STK- MED ONE Stop: 09/01/19 15:54 Last Admin: 09/01/19 18:12 Dose: Not Given Ondansetron HCl (Zofran) 4 mg IVPUSH ONETIME ONE Stop: 08/24/19 07:27 Last Admin: 08/24/19 08:13 Dose: 4 mg Potassium Chloride (Klor-Con M20) 20 meq PO BID [facility] Last Admin: 09/01/19 08:51 Dose: 20 meq Potassium Chloride (Potassium Chloride Solution) 40 meq NGTUBE ONETIME ONE Stop: 09/01/19 12:01 Last Admin: 09/01/19 11:39 Dose: 40 meq Psyllium Husk (Metamucil Sugar Free) 1 packet PO BID [facility] Last Admin: 09/04/19 08:35 Dose: 1 packet Sodium Chloride (Saline Flush) 10 ml FLUSH ONETIME ONE Stop: 08/30/19 09:01 Last Admin: 08/30/19 09:09 Dose: 10 ml Succinylcholine Chloride (Quelicin) 200 mg .ROUTE .STK-MED ONE Stop: 08/24/19 15:01 Vecuronium [place] (Vecuronium) Confirm Administered Dose 10 mg .ROUTE .STK-MED ONE Stop: 08/24/19 20:13 - Exam Quality Assessment: Supplemental Oxygen General: Alert HEENT: Pupils Equal, EOMI, Mucous Membr. Moist/[place] Neck: Supple Lungs: Normal Respiratory Effort, Rales (Bibasilar) Cardiovascular: Regular Rate, Regular Rhythm GI/Abdominal Exam: Normal Bowel Sounds, Soft, Non-Tender, No Organomegaly, No Distention Extremities: Normal Inspection, No Pedal Edema Skin: Warm, Dry, Intact Psy/Mental Status: Alert, Normal Affect, Normal Mood Sepsis Event Note - Evaluation Sepsis Screening Result: No Definite Risk - Focused Exam Vital Signs: Vital Signs Temp Pulse Resp BP BP Pulse Ox Pulse Ox 09/05/19 10:00 88 22 H 95 09/05/19 09:30 87 21 H 96 09/05/19 09:23 168/57 H 09/05/19 09:00 85 18 96 09/05/19 08:38 95 09/05/19 08:34 20 09/05/19 08:14 88 24 H 168/57 H 94 L 09/05/19 08:13 102 H 22 H 100 09/05/19 08:01 87 23 H 172/56 H 95 09/05/19 08:00 98.5 F 89 16 95 09/05/19 07:30 87 23 H 92 L 09/05/19 07:00 88 19 95 09/05/19 06:45 87 23 H 159/54 H 95 09/05/19 06:44 83 24 H 95 09/05/19 06:35 85 24 H 159/51 H 95 09/05/19 06:34 84 21 H 95 09/05/19 06:30 85 24 H 95 09/05/19 06:01 85 19 154/51 H 94 L 09/05/19 06:00 84 19 95 09/05/19 05:30 86 32 H 95 09/05/19 05:26 96 09/05/19 05:00 88 20 94 L 09/05/19 04:30 88 18 93 L 09/05/19 04:02 94 L 09/05/19 04:00 98.6 F 17 148/46 H 94 L 09/05/19 03:30 93 20 92 L 09/05/19 03:00 90 21 H 93 L 09/05/19 02:49 94 L 09/05/19 02:30 85 19 94 L 09/05/19 02:00 85 17 130/43 L 92 L 09/05/19 01:30 84 16 94 L 09/05/19 01:00 84 22 H 93 L 09/05/19 00:30 75 18 93 L 09/05/19 00:00 98.2 F 17 127/41 L 92 L Date Exam was Performed: 09/05/19 Time Exam was Performed: 12:59 - Problem List Review Problem List Initiated/Reviewed/Updated: Yes - My Orders Last 24 Hours: My Active Orders 09/04/19 11:49 Communication Order [RC] ASDIRECTED 09/05/19 09:00 Potassium Chloride [KCl 10 MEQ in Water 100 ML] 10 meq Premix Bag 1 bag IV Q1H 09/05/19 11:01 DC Jay Catheter [Urinary Catheter Removal] [RC] Per Unit Routine 09/06/19 05:11 CBC WITH AUTO DIFF [HEME] AM CMP [COMPREHENSIVE METABOLIC PN,CMP] [CHEM] AM MAGNESIUM [CHEM] AM 09/07/19 05:11 CBC WITH AUTO DIFF [HEME] AM CMP [COMPREHENSIVE METABOLIC PN,CMP] [CHEM] AM MAGNESIUM [CHEM] AM - Plan Plan:: Acute respiratory failure with respiratory alkalosis-improved Patient's respiratory status is much improved. She is only on 1 L nasal cannula. White count is still elevated but decreasing lending the likelihood to stress. Afebrile. On 1 L nasal cannula. Stopped antibiotics yesterday. Plan: Hold Lasix 20 mg this morning and evaluate throughout the day and tomorrow. Likely will need continued diuretics but may need to decrease dose Blood cultures -negative after greater than 48 hours Urine culture positive for yeast -likely colonization or asymptomatic and no need to treat. C. difficile screen negative Congestive heart failure with reduced ejection fraction - exacerbation -improved Patient has had a significant improvement in her CHF exacerbation. Her oxygen requirements have gone down greatly and she is on 1 L nasal cannula. She back to her admission weight. Echocardiogram 09/02/2019 1. Left ventricular ejection fraction by visual estimation is 45 to 50%. 2. Global and mildly decreased left ventricular systolic function. 3. Normal right ventricular systolic function. 4. There is mild aortic valve sclerosis without stenosis. 5. Mild aortic valve regurgitation. 6. Mild mitral valve regurgitation. 7. Mild tricuspid valve regurgitation. 8. No vegetations identified. Hypernatremia -resolved Patient's sodium has continued to increase since being on tube feeds. We will restart NG tube feeds and decrease D5W as we increase her NG tube feeds. Also, increase free water flushes to 100 mL every 4 hours. Change IV fluids to D5 half-normal saline at 50 mL/h until tube feeds are restarted. Follow CMP daily. 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 Rucker Wound dehiscence Decreased oral intake and complaining of abdominal pain-->Abnormal CT --> surgery consulted--> R hemicolectomy and small bowel resection Central line, arterial line (removed 08/31/2019) and ETT placed (extubated 08/30) Started on norepinephrine with inadequate BP response--> started on dopamine which improved response (off both) CXR consistent with pulmonary edema on 09/01/2019 Patient having difficulty with tube feeds. On Reglan and Carafate PLAN - NG tube care - NG at intermittent suction -Dobbhoff placed - RT f/u - Suction by nursing -Restart NG tube feeds at 20 mL/h and increase slowly. - Pain control with PRN morphine -Stop argatroban and hold low-dose baby aspirin. Heparin induced thrombocytopenia Admission platelets 341, platelets back up above 100,000 since stopping heparin T score 6, highly likely APTT has been erroneously reported lower than it actually is PLAN -Stop argatroban because no numbness seen on echo and CT. -Repeat APTT tomorrow morning - PF4 immunoassay ordered Acute kidney failure, improving Chronic kidney disease, stage 3 Hypokalemia secondary to diuresis Lactic acid normal Urine output has increased significantly and improved with Lasix Creatinine stable at 1.3. PLAN - Monitor urine output - Renally dosed medications - Avoid nephrotoxic agents as much as possible -Add back losartan when kidney function improves or stays stable GERD (gastroesophageal reflux disease) No acute issues PLAN - Scheduled IV Pantoprazole Hypertension BP on admission stable Started dropping perioperatively requiring vasopressors Pressors off since 08/27 Worsening hypertension PLAN - Continue Amlodipine 10 - continue chlorthalidone - PRN Hydralazine -When renal function improves will add back her losartan at 50 mg. Hypothyroidism No acute issues PLAN - Continue home meds [facility]ascular dementia [facility] resident Requires 1 assist for bed mobility, transfer, dressing, personal hygiene and bathing 2 assist for ambulation Continent for bowel Hypothermia, resolved Septic shock, resolved Lactic acidosis, resolved Metabolic acidosis, resolved Respiratory alkalosis, resolved PROPHYLAXIS DVT- SCDs GI- pantoprazole CODE STATUS: FULL CODE I spoke with the family on 2 separate occasions, both the son and daughter, and they continue to want full treatment. DISPOSITION: Patient admitted to the ICU for vasopressors and mechanical ventilation. Taken to OR 14 with subsequent bowel resection. Patient's overall prognosis is very poor with PASCUA YAQUI score or 32, predicted mortality of 74%; family aware. Patient currently stable and awaiting placement at [facility]
[2019-09-05] MEDS: Furosemide 20 MG/2 ML VIAL IVPUSH SCH (12:25)
[2019-09-05] MEDS: Enalaprilat 1.25 MG/ML SDV IVPUSH PRN ×2 (12:47→18:40)
[2019-09-05] MEDS: Sucralfate Suspension 1 GM/10 ML Cup NGTUBE SCH ×2 (13:27→21:22)
[2019-09-06] MEDS: Metoclopramide 10 MG/2 ML SDV IVPUSH SCH ×3 (00:44→17:29)
[2019-09-06] MEDS: Enalaprilat 1.25 MG/ML SDV IVPUSH PRN ×3 (00:44→12:31)
[2019-09-06] MEDS: Albuterol/Ipratropium 3.0-0.5 MG/3 ML Neb Soln NEB SCH ×4 (02:33→21:16)
[2019-09-06] MEDS: Dextrose 5%-0.45% NaCl 1,000 ML IV SCH (06:19)
--- NOTE | 2019-09-06 08:23 | PCM.SURGPN ---
- General Info Date of Service: 09/06/19 POD#: other (12) Functional Status: Reports: Pain Controlled - Review of Systems General: Reports: No Symptoms - Patient Data Vitals - Most Recent: Last Vital Signs Temp 97.5 F 09/06/19 04:14 Pulse 77 09/06/19 04:14 Resp 16 09/06/19 04:14 BP 165/51 H 09/06/19 06:20 Pulse Ox 91 L 09/06/19 04:14 Weight - Most Recent: 71.033 kg I&O - Last 24 Hours: Intake & Output 09/05/19 09/06/19 09/06/19 22:59 06:59 14:59 Intake Total 1200 1091 Output Total 165 Balance 1035 1091 Lab Results Last 24 Hrs: Laboratory Results - last 24 hr 09/05/19 09/05/19 09/06/19 Range/Units 08:12 08:12 05:23 WBC 17.30 H 21.17 H (3.98-10.04) K/mm3 RBC 3.13 L 2.96 L (3.98-5.22) M/mm3 Hgb 8.6 L 8.1 L (11.2-15.7) gm/dl Hct 26.2 L 25.0 L (34.1-44.9) % MCV 83.7 84.5 (79.4-94.8) fl MCH 27.5 27.4 (25.6-32.2) pg MCHC 32.8 32.4 (32.2-35.5) g/dl RDW Std Deviation 71.5 H 73.4 H (36.4-46.3) fL Plt Count 337 374 H (182-369) K/mm3 MPV 10.7 11.1 (9.4-12.3) fl Neut % (Auto) 79.5 H 83.0 H (34.0-71.1) % Lymph % (Auto) 9.9 L 6.3 L (19.3-51.7) % Barron % (Auto) 9.1 9.1 (4.7-12.5) % Eos % (Auto) 0.6 L 0.9 (0.7-5.8) Baso % (Auto) 0.1 0.1 (0.1-1.2) % Neut # (Auto) 13.75 H 17.59 H (1.56-6.13) K/mm3 Lymph # (Auto) 1.72 1.33 (1.18-3.74) K/mm3 Barron # (Auto) 1.57 H 1.93 H (0.24-0.36) K/mm3 Eos # (Auto) 0.11 0.18 (0.04-0.36) K/mm3 Baso # (Auto) 0.02 0.02 (0.01-0.08) K/mm3 Manual Slide Review Abnormal smear Abnormal smear Sodium 136 (136-145) mEq/L Potassium 3.2 L (3.5-5.1) mEq/L Chloride 102 (98-107) mEq/L Carbon Dioxide 24 (21-32) mEq/L Anion Gap 13.2 (5-15) BUN 14 (7-18) mg/dL Creatinine 1.1 H (0.55-1.02) mg/dL Est Cr Clr Drug Dosing 30.92 mL/min Estimated GFR (MDRD) 47 (>60) mL/min BUN/Creatinine Ratio 12.7 L (14-18) Glucose 117 H (83-115) mg/dL Calcium 8.4 L (8.5-10.1) mg/dL Magnesium 2.0 (1.8-2.4) mg/dl Total Bilirubin 0.5 (0.2-1.0) mg/dL AST 22 (15-37) U/L ALT 13 L (14-59) U/L Alkaline Phosphatase 63 (46-116) U/L Total Protein 5.8 L (6.4-8.2) g/dl Albumin 2.0 L (3.4-5.0) g/dl Globulin 3.8 gm/dL Albumin/Globulin Ratio 0.5 L (1-2) 09/06/19 Range/Units 05:23 WBC (3.98-10.04) K/mm3 RBC (3.98-5.22) M/mm3 Hgb (11.2-15.7) gm/dl Hct (34.1-44.9) % MCV (79.4-94.8) fl MCH (25.6-32.2) pg MCHC (32.2-35.5) g/dl RDW Std Deviation (36.4-46.3) fL Plt Count (182-369) K/mm3 MPV (9.4-12.3) fl Neut % (Auto) (34.0-71.1) % Lymph % (Auto) (19.3-51.7) % Barron % (Auto) (4.7-12.5) % Eos % (Auto) (0.7-5.8) Baso % (Auto) (0.1-1.2) % Neut # (Auto) (1.56-6.13) K/mm3 Lymph # (Auto) (1.18-3.74) K/mm3 Barron # (Auto) (0.24-0.36) K/mm3 Eos # (Auto) (0.04-0.36) K/mm3 Baso # (Auto) (0.01-0.08) K/mm3 Manual Slide Review Sodium 137 (136-145) mEq/L Potassium 3.6 (3.5-5.1) mEq/L Chloride 104 (98-107) mEq/L Carbon Dioxide 22 (21-32) mEq/L Anion Gap 14.6 (5-15) BUN 11 (7-18) mg/dL Creatinine 1.0 (0.55-1.02) mg/dL Est Cr Clr Drug Dosing 34.01 mL/min Estimated GFR (MDRD) 53 (>60) mL/min BUN/Creatinine Ratio 11.0 L (14-18) Glucose 132 H (83-115) mg/dL Calcium 8.3 L (8.5-10.1) mg/dL Magnesium 2.0 (1.8-2.4) mg/dl Total Bilirubin 0.5 (0.2-1.0) mg/dL AST 24 (15-37) U/L ALT 13 L (14-59) U/L Alkaline Phosphatase 64 (46-116) U/L Total Protein 5.6 L (6.4-8.2) g/dl Albumin 1.8 L (3.4-5.0) g/dl Globulin 3.8 gm/dL Albumin/Globulin Ratio 0.5 L (1-2) Gerardo Results Last 24 Hrs: Microbiology 09/01/19 20:20 Aerobic Blood Culture - Preliminary Blood - Venous - Lab Draw NO GROWTH AFTER 4 DAYS Anaerobic Blood Culture - Preliminary NO GROWTH AFTER 4 DAYS 12/22/19 19:50 Aerobic Blood Culture - Preliminary Blood - Venous NO GROWTH AFTER 4 DAYS Anaerobic Blood Culture - Preliminary NO GROWTH AFTER 4 DAYS Med Orders - Current: Current Medications Albuterol/Ipratropium (Duoneb 3.0-0.5 Mg/3 Ml) 3 ml NEB Q6HRRT [facility] Last Admin: 09/06/19 02:33 Dose: 3 ml Aspirin (Aspirin) 81 mg PO DAILY [facility] Last Admin: 09/05/19 09:31 Dose: Not Given Chlorthalidone (Chlorthalidone) 25 mg PO DAILY [facility] Last Admin: 09/05/19 09:23 Dose: 25 mg Enalaprilat (Vasotec Iv) 0.625 mg IVPUSH Q6H PRN PRN Reason: Hypertension Last Admin: 09/06/19 06:20 Dose: 0.625 mg Hydralazine HCl (Apresoline) 10 mg IVPUSH Q2H PRN PRN Reason: Systolic >180 / Diastolic >100 Last Admin: 08/31/19 01:25 Dose: 10 mg Dextrose/Sodium Chloride (Dextrose 5%-1/2 Ns) 1,000 mls @ 50 mls/hr IV ASDIRECTED [facility] Last Admin: 09/06/19 06:19 Dose: 50 mls/hr Metoclopramide HCl (Reglan) 5 mg IVPUSH Q8H [facility] Last Admin: 09/06/19 00:44 Dose: 5 mg Morphine Sulfate (Morphine) 1 mg IVPUSH Q4H PRN PRN Reason: Pain Last Admin: 09/04/19 21:08 Dose: 1 mg Pantoprazole Sodium (Protonix Iv) 40 mg IVPUSH DAILY [facility] Last Admin: 09/05/19 09:22 Dose: 40 mg Potassium Chloride (Potassium Chloride Solution) 20 meq NGTUBE BID [facility] Last Admin: 09/05/19 21:22 Dose: 20 meq Sodium Chloride (Saline Flush) 10 ml FLUSH ASDIRECTED PRN PRN Reason: Keep Vein Open Last Admin: 09/04/19 21:12 Dose: 10 ml Sucralfate (Carafate) 1 gm NGTUBE BID [facility] Last Admin: 09/05/19 21:22 Dose: 1 gm Discontinued Medications Amlodipine Besylate (Norvasc) 10 mg PO DAILY [facility] Last Admin: 09/05/19 09:23 Dose: 10 mg Atropine Sulfate (Atropine 0.1 Mg/Ml) 0.5 mg IVPUSH ONETIME ONE Stop: 08/27/19 07:57 Last Admin: 08/27/19 08:09 Dose: 0.5 mg Bumetanide (Bumex) 1 mg IVPUSH ONETIME ONE Stop: 08/25/19 22:49 Last Admin: 08/26/19 00:07 Dose: 1 mg Bumetanide (Bumex) 1 mg IVPUSH BID [facility] Last Admin: 08/28/19 08:06 Dose: 1 mg Dextrose/Water (Dextrose 50% In Water) 25 ml IVPUSH NOW STA Stop: 08/27/19 05:41 Last Admin: 08/27/19 05:47 Dose: 25 ml Enoxaparin Sodium (Lovenox) 70 mg SUBCUT Q24H [facility] Last Admin: 08/28/19 11:48 Dose: 70 mg Ephedrine Sulfate (Ephedrine In Ns) Confirm Administered Dose 25 mg .ROUTE .STK- MED ONE Stop: 08/24/19 21:32 Etomidate (Amidate) 40 mg IVPUSH .STK-MED ONE Stop: 08/24/19 15:01 Fentanyl (Sublimaze) Confirm Administered Dose 250 mcg .ROUTE .STK-MED ONE Stop: 08/24/19 18:10 Furosemide (Lasix) 60 mg IVPUSH NOW ONE Stop: 09/01/19 16:59 Last Admin: 09/01/19 17:15 Dose: 60 mg Furosemide (Lasix) 60 mg IVPUSH ONETIME ONE Stop: 09/02/19 00:01 Last Admin: 09/01/19 23:55 Dose: 60 mg Furosemide (Lasix) 40 mg IVPUSH NOW ONE Stop: 09/02/19 10:49 Last Admin: 09/02/19 11:59 Dose: 40 mg Furosemide (Lasix) 40 mg IVPUSH NOW ONE Stop: 09/02/19 18:19 Last Admin: 09/02/19 18:26 Dose: 40 mg Furosemide (Lasix) 40 mg IVPUSH BID [facility] Last Admin: 09/03/19 21:03 Dose: 40 mg Furosemide (Lasix) 20 mg IVPUSH DAILY [facility] Last Admin: 09/05/19 12:25 Dose: Not Given Heparin Sodium (Porcine) (Heparin Sodium) 5,000 units IVPUSH .BOLUS ONE Stop: 08/25/19 13:27 Last Admin: 08/25/19 14:11 Dose: 5,000 units Heparin Sodium (Porcine) (Heparin Lock Flush 100 Units/Ml) Confirm Administered Dose 500 units .ROUTE .STK-MED ONE Stop: 08/25/19 22:38 Last Admin: 08/25/19 23:02 Dose: 500 units Hydralazine HCl (Apresoline) 10 mg IVPUSH ONETIME ONE Stop: 08/29/19 07:47 Last Admin: 08/29/19 08:08 Dose: 10 mg Hydralazine HCl (Apresoline) 10 mg IVPUSH ONETIME ONE Stop: 08/30/19 11:55 Last Admin: 08/30/19 12:03 Dose: 10 mg Hydrocortisone Sodium Succinate (Solu-Cortef) 50 mg IV Q8H [facility] Last Admin: 08/29/19 12:21 Dose: 50 mg Hydromorphone HCl (Dilaudid) 0.5 mg IVPUSH ONETIME ONE Stop: 08/24/19 07:28 Last Admin: 08/24/19 08:15 Dose: 0.5 mg Sodium Chloride (Normal Saline) 1,000 mls @ 1,000 mls/hr IV .BOLUS STA Stop: 08/24/19 08:25 Last Admin: 08/24/19 08:13 Dose: 1,000 mls/hr Cefepime HCl 2 gm/ Premix 50 mls @ 100 mls/hr IV ONETIME ONE Stop: 08/24/19 13:18 Last Admin: 08/24/19 13:19 Dose: 100 mls/hr Lactated Ringer's (Ringers, Lactated) 1,100 mls @ 1,000 mls/hr IV .BOLUS ONE Stop: 08/24/19 14:13 Last Admin: 08/24/19 13:40 Dose: 1,000 mls/hr Levofloxacin/Dextrose 750 mg/ (Premix) 150 mls @ 100 mls/hr IV ONETIME ONE Stop: 08/24/19 15:07 Last Admin: 08/24/19 16:03 Dose: 100 mls/hr Piperacillin Sod/Tazobactam (Sod 4.5 gm/ Sodium Chloride) 100 mls @ 25 mls/hr IV Q8H [facility] Last Admin: 08/26/19 05:13 Dose: 25 mls/hr Vancomycin HCl 1 gm/ Sodium (Chloride) 250 mls @ 250 mls/hr IV ONETIME ONE Stop: 08/24/19 14:37 Last Admin: 08/24/19 16:06 Dose: 250 mls/hr Fentanyl 2,500 mcg/ Sodium (Chloride) 250 mls @ 7.27 mls/hr IV TITRATE [facility]; Protocol Last Titration: 08/28/19 04:23 Dose: 0 mcg/kg/hr, 0 mls/hr Midazolam HCl 50 mg/ Sodium (Chloride) 50 mls @ 0.5 mls/hr IV TITRATE [facility]; Protocol Stop: 08/25/19 15:29 Last Titration: 08/25/19 11:57 Dose: 2 mg/hr, 2 mls/hr Lactated Ringer's (Ringers, Lactated) 1,000 mls @ 125 mls/hr IV ASDIRECTED [facility] Last Admin: 08/25/19 01:00 Dose: 125 mls/hr Norepinephrine Bitartrate 4 mg (/ Dextrose/Water) 250 mls @ 7.5 mls/hr IV TITRATE [facility]; Protocol Last Titration: 08/27/19 07:25 Dose: 0 mcg/min, 0 mls/hr Sodium Chloride (Normal Saline) Confirm Administered Dose 1,000 mls @ as directed .ROUTE .STK-MED ONE Stop: 08/24/19 17:09 Last Admin: 08/24/19 17:16 Dose: 1 mls/hr Lactated Ringer's (Ringers, Lactated) Confirm Administered Dose 1,000 mls @ as directed .ROUTE .STK-MED ONE Stop: 08/24/19 18:34 Lactated Ringer's (Ringers, Lactated) Confirm Administered Dose 1,000 mls @ as directed .ROUTE .STK-MED ONE Stop: 08/24/19 19:10 Lactated Ringer's (Ringers, Lactated) Confirm Administered Dose 1,000 mls @ as directed .ROUTE .STK-MED ONE Stop: 08/24/19 19:46 Lactated Ringer's (Ringers, Lactated) Confirm Administered Dose 1,000 mls @ as directed .ROUTE .STK-MED ONE Stop: 08/24/19 20:40 Lactated Ringer's (Ringers, Lactated) 1,000 mls @ 250 mls/hr IV ASDIRECTED [facility] Last Infusion: 08/26/19 12:28 Dose: Infused Lactated Ringer's (Ringers, Lactated) 1,000 mls @ 999 mls/hr IV .BOLUS ONE Stop: 08/25/19 09:03 Last Admin: 08/25/19 08:10 Dose: 999 mls/hr Heparin Sodium/Dextrose (Heparin 25,000 Units In D5w 500 Ml) 25,000 units in 500 mls @ 26 mls/hr IV TITRATE [facility]; Protocol Last Admin: 08/26/19 08:24 Dose: 22 units/kg/hr, 32.013 mls/hr Dopamine HCl/Dextrose (Dopamine In D5w 400 Mg/250 Ml) 400 mg in 250 mls @ 5.457 mls/hr IV TITRATE [facility]; Protocol Last Titration: 08/26/19 15:20 Dose: 0 mcg/kg/min, 0 mls/hr Lactated Ringer's (Ringers, Lactated) 2,000 mls @ 999 mls/hr IV .BOLUS ONE Stop: 08/25/19 17:52 Last Admin: 08/25/19 16:11 Dose: 999 mls/hr Lactated Ringer's (Ringers, Lactated) 1,000 mls @ 999 mls/hr IV .BOLUS ONE Stop: 08/25/19 17:13 Last Admin: 08/25/19 16:48 Dose: 999 mls/hr Midazolam HCl 50 mg/ Sodium (Chloride) 50 mls @ 0.5 mls/hr IV TITRATE [facility]; Protocol Last Titration: 08/27/19 07:55 Dose: 0 mg/hr, 0 mls/hr Albumin Human (Flexbumin 25%) 25 gm in 100 mls @ 100 mls/hr IV Q1H [facility] Stop: 08/26/19 00:46 Last Admin: 08/26/19 00:07 Dose: 100 mls/hr Albumin Human (Flexbumin 25%) 12.5 gm in 50 mls @ 100 mls/hr IV Q8H [facility] Stop: 08/29/19 07:01 Last Admin: 08/29/19 05:59 Dose: 100 mls/hr Lactated Ringer's (Ringers, Lactated) 1,000 mls @ 200 mls/hr IV ASDIRECTED [facility] Last Infusion: 08/26/19 12:30 Dose: 100 mls/hr Magnesium Sulfate 4 gm/ Premix 100 mls @ 25 mls/hr IV ONETIME ONE Stop: 08/26/19 07:31 Last Admin: 08/26/19 06:48 Dose: 25 mls/hr Piperacillin Sod/Tazobactam (Sod 4.5 gm/ Sodium Chloride) 100 mls @ 25 mls/hr IV Q12H [facility] Stop: 08/29/19 10:00 Last Admin: 08/29/19 07:09 Dose: Not Given Lactated Ringer's (Ringers, Lactated) 1,000 mls @ 100 mls/hr IV ASDIRECTED [facility] Last Admin: 08/26/19 18:09 Dose: 100 mls/hr Dextrose/Water (Dextrose 10% In Water) 1,000 mls @ 25 mls/hr IV ASDIRECTED [facility] Dextrose/Water (Dextrose 10% In Water) 1,000 mls @ 25 mls/hr IV ASDIRECTED [facility] Last Admin: 08/27/19 05:52 Dose: 25 mls/hr Dextrose/Water (Dextrose 10% In Water) Confirm Administered Dose 1,000 mls @ as directed .ROUTE .K-MED ONE Stop: 08/27/19 05:47 Last Admin: 08/27/19 05:56 Dose: Not Given Potassium Cl/Dextrose/Lact Ringer's (D5 Lr With 20 Meq Kcl) 1,000 mls @ 100 mls /hr IV ASDIRECTED [facility] Last Infusion: 08/28/19 11:57 Dose: 50 mls/hr Potassium Chloride 10 meq/ (Premix) 100 mls @ 100 mls/hr IV Q1H [facility] Stop: 08/27/19 12:59 Last Admin: 08/27/19 12:55 Dose: 100 mls/hr Potassium Chloride 10 meq/ (Premix) 100 mls @ 100 mls/hr IV Q1H [facility] Stop: 08/28/19 15:29 Last Admin: 08/28/19 15:11 Dose: 100 mls/hr Potassium Cl/Dextrose/Lact Ringer's (D5 Lr With 20 Meq Kcl) 1,000 mls @ 50 mls/ hr IV ASDIRECTED [facility] Last Admin: 08/30/19 18:01 Dose: 50 mls/hr Piperacillin Sod/Tazobactam (Sod 4.5 gm/ Sodium Chloride) 100 mls @ 25 mls/hr IV Q8H [facility] Last Admin: 09/03/19 07:04 Dose: 25 mls/hr Potassium Chloride 10 meq/ (Premix) 100 mls @ 100 mls/hr IV Q1H [facility] Stop: 08/29/19 17:59 Last Admin: 08/29/19 17:47 Dose: 100 mls/hr Magnesium Sulfate 2 gm/ Premix 50 mls @ 25 mls/hr IV 1200,2100 [facility] Stop: 08/29/19 22:59 Last Admin: 08/29/19 20:25 Dose: 25 mls/hr Sodium Chloride (Normal Saline) 1,000 mls @ 999 mls/hr IRR ONETIME ONE Stop: 08/29/19 13:07 Last Admin: 08/29/19 12:52 Dose: 999 mls/hr Argatroban 250 mg/ Sodium (Chloride) 252.5 mls @ 9.69 mls/hr IV TITRATE [facility]; Protocol Last Titration: 09/03/19 08:55 Dose: 0 mcg/kg/min, 0 mls/hr Sodium Chloride (Normal Saline) 100 mls @ 60 mls/hr IV ASDIRECTED [facility] Stop: 08/30/19 13:00 Potassium Chloride 10 meq/ (Premix) 100 mls @ 100 mls/hr IV Q1H [facility] Stop: 08/31/19 11:29 Last Admin: 08/31/19 11:42 Dose: 100 mls/hr Norepinephrine Bitartrate 4 mg (/ Dextrose/Water) 250 mls @ 7.5 mls/hr IV TITRATE [facility]; Protocol Dextrose/Water (Dextrose 5% In Water) Confirm Administered Dose 250 mls @ as directed .ROUTE .STK-MED ONE Stop: 09/01/19 15:54 Last Admin: 09/01/19 18:13 Dose: Not Given Dextrose/Water (Dextrose 5% In Water) 1,000 mls @ 50 mls/hr IV ASDIRECTED [facility] Last Infusion: 09/02/19 20:45 Dose: 25 mls/hr Sodium Chloride (Normal Saline) 100 mls @ 75 mls/hr IV ASDIRECTED [facility] Linezolid 600 mg/ Premix 300 mls @ 300 mls/hr IV Q12H [facility] Last Admin: 09/01/19 19:54 Dose: Not Given Linezolid 600 mg/ Premix 300 mls @ 300 mls/hr IV Q12H [facility] Last Admin: 09/03/19 12:01 Dose: Not Given Potassium Chloride 10 meq/ (Premix) 100 mls @ 100 mls/hr IV Q1H [facility] Stop: 09/03/19 12:14 Last Admin: 09/03/19 12:50 Dose: 100 mls/hr Dextrose/Water (Dextrose 5% In Water) 1,000 mls @ 50 mls/hr IV ASDIRECTED [facility] Last Admin: 09/03/19 11:07 Dose: 50 mls/hr Potassium Chloride 10 meq/ (Premix) 100 mls @ 100 mls/hr IV Q1H [facility] Stop: 09/04/19 11:59 Last Admin: 09/04/19 11:33 Dose: 100 mls/hr Potassium Chloride 10 meq/ (Premix) 100 mls @ 100 mls/hr IV Q1H [facility] Stop: 09/05/19 12:59 Last Admin: 09/05/19 12:24 Dose: 100 mls/hr Iopamidol (Isovue-370 (76%)) 100 ml IVPUSH ONETIME ONE Stop: 09/01/19 17:31 Last Admin: 09/01/19 17:31 Dose: 100 ml Levothyroxine Sodium (Synthroid) 75 mcg PO DAILY [facility] Morphine Sulfate (Morphine) 1 mg IVPUSH ONETIME ONE Stop: 08/29/19 07:47 Last Admin: 08/29/19 08:09 Dose: 1 mg Non-Formulary Medication (Losartan) 50 mg PO BEDTIME [facility] Norepinephrine Bitartrate (Levophed) Confirm Administered Dose 4 mg .ROUTE .STK- MED ONE Stop: 08/24/19 16:39 Last Admin: 08/24/19 16:47 Dose: Not Given Norepinephrine Bitartrate (Levophed) Confirm Administered Dose 4 mg .ROUTE .STK- MED ONE Stop: 09/01/19 15:54 Last Admin: 09/01/19 18:12 Dose: Not Given Ondansetron HCl (Zofran) 4 mg IVPUSH ONETIME ONE Stop: 08/24/19 07:27 Last Admin: 08/24/19 08:13 Dose: 4 mg Potassium Chloride (Klor-Con M20) 20 meq PO BID [facility] Last Admin: 09/01/19 08:51 Dose: 20 meq Potassium Chloride (Potassium Chloride Solution) 40 meq NGTUBE ONETIME ONE Stop: 09/01/19 12:01 Last Admin: 09/01/19 11:39 Dose: 40 meq Psyllium Husk (Metamucil Sugar Free) 1 packet PO BID [facility] Last Admin: 09/04/19 08:35 Dose: 1 packet Sodium Chloride (Saline Flush) 10 ml FLUSH ONETIME ONE Stop: 08/30/19 09:01 Last Admin: 08/30/19 09:09 Dose: 10 ml Succinylcholine Chloride (Quelicin) 200 mg .ROUTE .STK-MED ONE Stop: 08/24/19 15:01 Vecuronium [place] (Vecuronium) Confirm Administered Dose 10 mg .ROUTE .STK-MED ONE Stop: 08/24/19 20:13 - Exam Wound/Incisions: Healing Well, Drainage (minimal) General: Alert, Cooperative, No Acute Distress Cardiovascular: Regular Rate, Regular Rhythm GI/Abdominal Exam: Soft, No Distention, Tender (appropriately tender around the incision) Sepsis Event Note - Evaluation Sepsis Screening Result: No Definite Risk - Focused Exam Vital Signs: Vital Signs Temp Pulse Resp BP Pulse Ox Pulse Ox 09/06/19 06:20 165/51 H 09/06/19 04:14 97.5 F 77 16 153/51 H 91 L 09/06/19 02:34 95 09/06/19 00:44 161/89 H 09/05/19 23:58 97.3 F 80 17 161/89 H 92 L 09/05/19 21:18 97.3 F 78 17 176/84 H 94 L 09/05/19 20:43 94 L Date Exam was Performed: 09/06/19 Time Exam was Performed: 08:18 - Problem List Review Problem List Initiated/Reviewed/Updated: No - My Orders Last 24 Hours: Active Orders 24 hr Category Date Time Status Patient Status [ADT] Routine ADT 09/05/19 14:03 Active Communication Order [RC] DAILY Care 09/05/19 11:15 Active Feeding Tube Managment [Enteral Feedings] [RC] Click to Diet 09/06/19 08:11 Active Edit CBC WITH AUTO DIFF [HEME] AM Lab 09/07/19 05:11 Ordered CMP [COMPREHENSIVE METABOLIC PN,CMP] [CHEM] AM Lab 09/07/19 05:11 Ordered MAGNESIUM [CHEM] AM Lab 09/07/19 05:11 Ordered Enalaprilat [Vasotec IV] Med 09/05/19 11:41 Active 0.625 mg IVPUSH Q6H PRN Metoclopramide [Reglan] Med 09/05/19 09:00 Active 5 mg IVPUSH Q8H Sucralfate [Carafate] Med 09/05/19 12:00 Active 1 gm NGTUBE BID Medication Orders Albuterol/Ipratropium (Duoneb 3.0-0.5 Mg/3 Ml) 3 ml NEB Q6HRRT [facility] Last Admin: 09/06/19 02:33 Dose: 3 ml Admin: 09/05/19 20:40 Dose: 3 ml Admin: 09/05/19 14:03 Dose: 3 ml Admin: 09/05/19 08:38 Dose: 3 ml Admin: 09/05/19 02:49 Dose: 3 ml Admin: 09/04/19 20:14 Dose: 3 ml Admin: 09/04/19 14:20 Dose: 3 ml Admin: 09/04/19 08:14 Dose: 3 ml Admin: 09/04/19 02:25 Dose: 3 ml Admin: 09/03/19 20:21 Dose: 3 ml Admin: 09/03/19 14:11 Dose: 3 ml Admin: 09/03/19 08:19 Dose: 3 ml Admin: 09/03/19 02:12 Dose: 3 ml Admin: 09/02/19 20:51 Dose: 3 ml Admin: 09/02/19 14:27 Dose: 3 ml Admin: 09/02/19 08:31 Dose: 3 ml Admin: 09/02/19 02:45 Dose: 3 ml Admin: 09/01/19 20:26 Dose: 3 ml Admin: 09/01/19 16:16 Dose: 3 ml Aspirin (Aspirin) 81 mg PO DAILY [facility] Last Admin: 09/05/19 09:31 Dose: Admin: 09/04/19 08:34 Dose: 81 mg Chlorthalidone (Chlorthalidone) 25 mg PO DAILY [facility] Last Admin: 09/05/19 09:23 Dose: 25 mg Admin: 09/04/19 08:34 Dose: 25 mg Admin: 09/03/19 09:39 Dose: Admin: 09/02/19 08:09 Dose: 25 mg Admin: 09/01/19 08:50 Dose: 25 mg Admin: 08/31/19 09:50 Dose: 25 mg Admin: 08/30/19 10:58 Dose: 25 mg Enalaprilat (Vasotec Iv) 0.625 mg IVPUSH Q6H PRN PRN Reason: Hypertension Last Admin: 09/06/19 06:20 Dose: 0.625 mg Admin: 09/06/19 00:44 Dose: 0.625 mg Admin: 09/05/19 18:40 Dose: 0.625 mg Admin: 09/05/19 12:47 Dose: 0.625 mg Hydralazine HCl (Apresoline) 10 mg IVPUSH Q2H PRN PRN Reason: Systolic >180 / Diastolic >100 Last Admin: 08/31/19 01:25 Dose: 10 mg Admin: 08/30/19 21:48 Dose: 10 mg Admin: 08/30/19 18:01 Dose: 10 mg Dextrose/Sodium Chloride (Dextrose 5%-1/2 Ns) 1,000 mls @ 50 mls/hr IV ASDIRECTED [facility] Last Admin: 09/06/19 06:19 Dose: 50 mls/hr Infusion: 09/06/19 06:19 Dose: 50 mls/hr Admin: 09/05/19 10:21 Dose: 50 mls/hr Infusion: 09/05/19 10:21 Dose: 50 mls/hr Admin: 09/04/19 15:04 Dose: 50 mls/hr Infusion: 09/04/19 12:04 Dose: 50 mls/hr Admin: 09/03/19 16:04 Dose: 50 mls/hr Metoclopramide HCl (Reglan) 5 mg IVPUSH Q8H CHUY Last Admin: 09/06/19 00:44 Dose: 5 mg Admin: 09/05/19 16:47 Dose: 5 mg Admin: 09/05/19 09:23 Dose: 5 mg Morphine Sulfate (Morphine) 1 mg IVPUSH Q4H PRN PRN Reason: Pain Last Admin: 09/04/19 21:08 Dose: 1 mg Admin: 09/02/19 08:50 Dose: 1 mg Admin: 09/02/19 00:05 Dose: 1 mg Admin: 09/01/19 02:33 Dose: 1 mg Admin: 08/31/19 21:26 Dose: 1 mg Admin: 08/31/19 14:27 Dose: 1 mg Admin: 08/31/19 00:05 Dose: 1 mg Admin: 08/30/19 05:17 Dose: 1 mg Admin: 08/29/19 20:28 Dose: 1 mg Admin: 08/29/19 17:44 Dose: 1 mg Admin: 08/29/19 12:50 Dose: 1 mg Pantoprazole Sodium (Protonix Iv) 40 mg IVPUSH DAILY CHUY Last Admin: 09/05/19 09:22 Dose: 40 mg Admin: 09/04/19 08:35 Dose: 40 mg Admin: 09/03/19 09:30 Dose: 40 mg Admin: 09/02/19 08:00 Dose: 40 mg Admin: 09/01/19 08:50 Dose: 40 mg Admin: 08/31/19 09:49 Dose: 40 mg Admin: 08/30/19 09:06 Dose: 40 mg Admin: 08/29/19 08:08 Dose: 40 mg Admin: 08/28/19 08:06 Dose: 40 mg Admin: 08/27/19 08:34 Dose: 40 mg Admin: 08/26/19 08:40 Dose: 40 mg Admin: 08/25/19 08:19 Dose: 40 mg Potassium Chloride (Potassium Chloride Solution) 20 meq NGTUBE BID CHUY Last Admin: 09/05/19 21:22 Dose: 20 meq Admin: 09/05/19 09:22 Dose: 20 meq Admin: 09/04/19 21:12 Dose: 20 meq Admin: 09/04/19 08:34 Dose: 20 meq Admin: 09/03/19 21:03 Dose: 20 meq Admin: 09/03/19 09:39 Dose: Admin: 09/02/19 20:21 Dose: 20 meq Admin: 09/02/19 08:02 Dose: 20 meq Admin: 09/01/19 20:20 Dose: 20 meq Sodium Chloride (Saline Flush) 10 ml FLUSH ASDIRECTED PRN PRN Reason: Keep Vein Open Last Admin: 09/04/19 21:12 Dose: 10 ml Admin: 09/03/19 21:06 Dose: 10 ml Admin: 09/01/19 18:31 Dose: 10 ml Admin: 08/24/19 08:14 Dose: 10 ml Sucralfate (Carafate) 1 gm NGTUBE BID CHUY Last Admin: 09/05/19 21:22 Dose: 1 gm Admin: 09/05/19 13:27 Dose: 1 gm - Assessment Assessment (Free Text/Narrative):: Out of ICU. Awake, alert. Progressing well. - Plan Plan (Free Text/Narrative):: - Advance TF by 10cc every 4 hours until goal of 65 cc/hr. If patient does not tolerate advancing TF, then put them back to 40 cc/hr. Repeat swallow eval today - Continue BID dressing changes with mist gauze - Continue PT/OT - Ok to transfer to [facility]
[2019-09-06] MEDS: Pantoprazole 40 MG Vial IVPUSH SCH (09:24)
[2019-09-06] MEDS: Chlorthalidone 25 MG Tab PO SCH (09:28)
[2019-09-06] MEDS: Aspirin 81 MG Tab.Chew PO SCH (09:28)
[2019-09-06] MEDS: Sucralfate Suspension 1 GM/10 ML Cup NGTUBE SCH ×2 (09:29→20:35)
[2019-09-06] MEDS: Potassium Chloride 10% 20 MEQ/15 ML Soln 15 ML UD Cup NGTUBE SCH (09:29)
[2019-09-06] MEDS ORDERED: Sodium Chloride 0.9% 10 ML Syringe FLUSH PRN (11:18)
[2019-09-06] MEDS ORDERED: Enalaprilat 1.25 MG/ML SDV IVPUSH SCH ×2 (13:00→18:00)
--- NOTE | 2019-09-06 13:57 | PCM.PN ---
- General Info Date of Service: 09/06/19 Admission Dx/Problem (Free Text): Decreased urine output Norepinephrine drip Fentanyl and versed for sedation LR for fluid repletion Levaquin, vancomycin and Zosyn Subjective Update: Patient continues to improve. Her son and [id number] were present today and stated that she does seem to be more confused than normal. She does have a baseline advanced dementia, but does seem to have more memory loss. Functional Status: Reports: Pain Controlled - Review of Systems General: Reports: No Symptoms HEENT: Reports: No Symptoms Pulmonary: Reports: No Symptoms Cardiovascular: Reports: No Symptoms Gastrointestinal: Reports: No Symptoms - Patient Data Vitals - Most Recent: Last Vital Signs Temp 98.4 F 09/06/19 07:54 Pulse 79 09/06/19 12:31 Resp 20 09/06/19 12:31 BP 151/104 H 09/06/19 12:31 Pulse Ox 93 L 09/06/19 12:31 Weight - Most Recent: 156 lb 9.6 oz I&O - Last 24 Hours: Intake & Output 09/05/19 09/06/19 09/06/19 22:59 06:59 14:59 Intake Total 1200 1091 Output Total 165 Balance 1035 1091 Lab Results Last 24 Hours: Laboratory Results - last 24 hr 09/06/19 09/06/19 Range/Units 05:23 05:23 WBC 21.17 H (3.98-10.04) K/mm3 RBC 2.96 L (3.98-5.22) M/mm3 Hgb 8.1 L (11.2-15.7) gm/dl Hct 25.0 L (34.1-44.9) % MCV 84.5 (79.4-94.8) fl MCH 27.4 (25.6-32.2) pg MCHC 32.4 (32.2-35.5) g/dl RDW Std Deviation 73.4 H (36.4-46.3) fL Plt Count 374 H (182-369) K/mm3 MPV 11.1 (9.4-12.3) fl Neut % (Auto) 83.0 H (34.0-71.1) % Lymph % (Auto) 6.3 L (19.3-51.7) % Frio % (Auto) 9.1 (4.7-12.5) % Eos % (Auto) 0.9 (0.7-5.8) Baso % (Auto) 0.1 (0.1-1.2) % Neut # (Auto) 17.59 H (1.56-6.13) K/mm3 Lymph # (Auto) 1.33 (1.18-3.74) K/mm3 Frio # (Auto) 1.93 H (0.24-0.36) K/mm3 Eos # (Auto) 0.18 (0.04-0.36) K/mm3 Baso # (Auto) 0.02 (0.01-0.08) K/mm3 Manual Slide Review Abnormal smear Sodium 137 (136-145) mEq/L Potassium 3.6 (3.5-5.1) mEq/L Chloride 104 (98-107) mEq/L Carbon Dioxide 22 (21-32) mEq/L Anion Gap 14.6 (5-15) BUN 11 (7-18) mg/dL Creatinine 1.0 (0.55-1.02) mg/dL Est Cr Clr Drug Dosing 34.01 mL/min Estimated GFR (MDRD) 53 (>60) mL/min BUN/Creatinine Ratio 11.0 L (14-18) Glucose 132 H (83-115) mg/dL Calcium 8.3 L (8.5-10.1) mg/dL Magnesium 2.0 (1.8-2.4) mg/dl Total Bilirubin 0.5 (0.2-1.0) mg/dL AST 24 (15-37) U/L ALT 13 L (14-59) U/L Alkaline Phosphatase 64 (46-116) U/L Total Protein 5.6 L (6.4-8.2) g/dl Albumin 1.8 L (3.4-5.0) g/dl Globulin 3.8 gm/dL Albumin/Globulin Ratio 0.5 L (1-2) Gerardo Results Last 24 Hours: Microbiology 09/01/19 20:20 Aerobic Blood Culture - Preliminary Blood - Venous - Lab Draw NO GROWTH AFTER 4 DAYS Anaerobic Blood Culture - Preliminary NO GROWTH AFTER 4 DAYS 09/01/19 19:50 Aerobic Blood Culture - Preliminary Blood - Venous NO GROWTH AFTER 4 DAYS Anaerobic Blood Culture - Preliminary NO GROWTH AFTER 4 DAYS Med Orders - Current: Current Medications Albuterol/Ipratropium (Duoneb 3.0-0.5 Mg/3 Ml) 3 ml NEB Q6HRRT [facility] Last Admin: 09/06/19 10:35 Dose: 3 ml Aspirin (Aspirin) 81 mg PO DAILY [facility] Last Admin: 09/06/19 09:28 Dose: 81 mg Chlorthalidone (Chlorthalidone) 25 mg PO DAILY [facility] Last Admin: 09/06/19 09:28 Dose: 25 mg Hydralazine HCl (Apresoline) 10 mg IVPUSH Q2H PRN PRN Reason: Systolic >180 / Diastolic >100 Last Admin: 08/31/19 01:25 Dose: 10 mg Lisinopril (Prinivil) 20 mg PO BEDTIME [facility] Metoclopramide HCl (Reglan) 5 mg IVPUSH Q8H [facility] Last Admin: 09/06/19 09:21 Dose: 5 mg Morphine Sulfate (Morphine) 1 mg IVPUSH Q4H PRN PRN Reason: Pain Last Admin: 09/04/19 21:08 Dose: 1 mg Pantoprazole Sodium (Protonix Iv) 40 mg IVPUSH DAILY [facility] Last Admin: 09/06/19 09:24 Dose: 40 mg Potassium Chloride (Potassium Chloride Solution) 20 meq NGTUBE DAILY [facility] Sodium Chloride (Saline Flush) 10 ml FLUSH ASDIRECTED PRN PRN Reason: Keep Vein Open Sucralfate (Carafate) 1 gm NGTUBE BID [facility] Last Admin: 09/06/19 09:29 Dose: 1 gm Discontinued Medications Amlodipine Besylate (Norvasc) 10 mg PO DAILY [facility] Last Admin: 09/05/19 09:23 Dose: 10 mg Atropine Sulfate (Atropine 0.1 Mg/Ml) 0.5 mg IVPUSH ONETIME ONE Stop: 08/27/19 07:57 Last Admin: 08/27/19 08:09 Dose: 0.5 mg Bumetanide (Bumex) 1 mg IVPUSH ONETIME ONE Stop: 08/25/19 22:49 Last Admin: 08/26/19 00:07 Dose: 1 mg Bumetanide (Bumex) 1 mg IVPUSH BID [facility] Last Admin: 08/28/19 08:06 Dose: 1 mg Dextrose/Water (Dextrose 50% In Water) 25 ml IVPUSH NOW STA Stop: 08/27/19 05:41 Last Admin: 08/27/19 05:47 Dose: 25 ml Enalaprilat (Vasotec Iv) 0.625 mg IVPUSH Q6H PRN PRN Reason: Hypertension Last Admin: 09/06/19 12:31 Dose: 0.625 mg Enalaprilat (Vasotec Iv) 1.25 mg IVPUSH Q6H [facility] Enalaprilat (Vasotec Iv) 1.25 mg IVPUSH Q6H [facility] Enoxaparin Sodium (Lovenox) 70 mg SUBCUT Q24H [facility] Last Admin: 08/28/19 11:48 Dose: 70 mg Ephedrine Sulfate (Ephedrine In Ns) Confirm Administered Dose 25 mg .ROUTE .STK- MED ONE Stop: 08/24/19 21:32 Etomidate (Amidate) 40 mg IVPUSH .STK-MED ONE Stop: 08/24/19 15:01 Fentanyl (Sublimaze) Confirm Administered Dose 250 mcg .ROUTE .STK-MED ONE Stop: 08/24/19 18:10 Furosemide (Lasix) 60 mg IVPUSH NOW ONE Stop: 09/01/19 16:59 Last Admin: 09/01/19 17:15 Dose: 60 mg Furosemide (Lasix) 60 mg IVPUSH ONETIME ONE Stop: 09/02/19 00:01 Last Admin: 09/01/19 23:55 Dose: 60 mg Furosemide (Lasix) 40 mg IVPUSH NOW ONE Stop: 09/02/19 10:49 Last Admin: 09/02/19 11:59 Dose: 40 mg Furosemide (Lasix) 40 mg IVPUSH NOW ONE Stop: 09/02/19 18:19 Last Admin: 09/02/19 18:26 Dose: 40 mg Furosemide (Lasix) 40 mg IVPUSH BID [facility] Last Admin: 09/03/19 21:03 Dose: 40 mg Furosemide (Lasix) 20 mg IVPUSH DAILY [facility] Last Admin: 09/05/19 12:25 Dose: Not Given Heparin Sodium (Porcine) (Heparin Sodium) 5,000 units IVPUSH .BOLUS ONE Stop: 08/25/19 13:27 Last Admin: 08/25/19 14:11 Dose: 5,000 units Heparin Sodium (Porcine) (Heparin Lock Flush 100 Units/Ml) Confirm Administered Dose 500 units .ROUTE .STK-MED ONE Stop: 08/25/19 22:38 Last Admin: 08/25/19 23:02 Dose: 500 units Hydralazine HCl (Apresoline) 10 mg IVPUSH ONETIME ONE Stop: 08/29/19 07:47 Last Admin: 08/29/19 08:08 Dose: 10 mg Hydralazine HCl (Apresoline) 10 mg IVPUSH ONETIME ONE Stop: 08/30/19 11:55 Last Admin: 08/30/19 12:03 Dose: 10 mg Hydrocortisone Sodium Succinate (Solu-Cortef) 50 mg IV Q8H [facility] Last Admin: 08/29/19 12:21 Dose: 50 mg Hydromorphone HCl (Dilaudid) 0.5 mg IVPUSH ONETIME ONE Stop: 08/24/19 07:28 Last Admin: 08/24/19 08:15 Dose: 0.5 mg Sodium Chloride (Normal Saline) 1,000 mls @ 1,000 mls/hr IV .BOLUS STA Stop: 08/24/19 08:25 Last Admin: 08/24/19 08:13 Dose: 1,000 mls/hr Cefepime HCl 2 gm/ Premix 50 mls @ 100 mls/hr IV ONETIME ONE Stop: 08/24/19 13:18 Last Admin: 08/24/19 13:19 Dose: 100 mls/hr Lactated Ringer's (Ringers, Lactated) 1,100 mls @ 1,000 mls/hr IV .BOLUS ONE Stop: 08/24/19 14:13 Last Admin: 08/24/19 13:40 Dose: 1,000 mls/hr Levofloxacin/Dextrose 750 mg/ (Premix) 150 mls @ 100 mls/hr IV ONETIME ONE Stop: 08/24/19 15:07 Last Admin: 08/24/19 16:03 Dose: 100 mls/hr Piperacillin Sod/Tazobactam (Sod 4.5 gm/ Sodium Chloride) 100 mls @ 25 mls/hr IV Q8H [facility] Last Admin: 08/26/19 05:13 Dose: 25 mls/hr Vancomycin HCl 1 gm/ Sodium (Chloride) 250 mls @ 250 mls/hr IV ONETIME ONE Stop: 08/24/19 14:37 Last Admin: 08/24/19 16:06 Dose: 250 mls/hr Fentanyl 2,500 mcg/ Sodium (Chloride) 250 mls @ 7.27 mls/hr IV TITRATE [facility]; Protocol Last Titration: 08/28/19 04:23 Dose: 0 mcg/kg/hr, 0 mls/hr Midazolam HCl 50 mg/ Sodium (Chloride) 50 mls @ 0.5 mls/hr IV TITRATE [facility]; Protocol Stop: 08/25/19 15:29 Last Titration: 08/25/19 11:57 Dose: 2 mg/hr, 2 mls/hr Lactated Ringer's (Ringers, Lactated) 1,000 mls @ 125 mls/hr IV ASDIRECTED [facility] Last Admin: 08/25/19 01:00 Dose: 125 mls/hr Norepinephrine Bitartrate 4 mg (/ Dextrose/Water) 250 mls @ 7.5 mls/hr IV TITRATE [facility]; Protocol Last Titration: 08/27/19 07:25 Dose: 0 mcg/min, 0 mls/hr Sodium Chloride (Normal Saline) Confirm Administered Dose 1,000 mls @ as directed .ROUTE .STK-MED ONE Stop: 08/24/19 17:09 Last Admin: 08/24/19 17:16 Dose: 1 mls/hr Lactated Ringer's (Ringers, Lactated) Confirm Administered Dose 1,000 mls @ as directed .ROUTE .STK-MED ONE Stop: 08/24/19 18:34 Lactated Ringer's (Ringers, Lactated) Confirm Administered Dose 1,000 mls @ as directed .ROUTE .STK-MED ONE Stop: 08/24/19 19:10 Lactated Ringer's (Ringers, Lactated) Confirm Administered Dose 1,000 mls @ as directed .ROUTE .STK-MED ONE Stop: 08/24/19 19:46 Lactated Ringer's (Ringers, Lactated) Confirm Administered Dose 1,000 mls @ as directed .ROUTE .STK-MED ONE Stop: 08/24/19 20:40 Lactated Ringer's (Ringers, Lactated) 1,000 mls @ 250 mls/hr IV ASDIRECTED [facility] Last Infusion: 08/26/19 12:28 Dose: Infused Lactated Ringer's (Ringers, Lactated) 1,000 mls @ 999 mls/hr IV .BOLUS ONE Stop: 08/25/19 09:03 Last Admin: 08/25/19 08:10 Dose: 999 mls/hr Heparin Sodium/Dextrose (Heparin 25,000 Units In D5w 500 Ml) 25,000 units in 500 mls @ 26 mls/hr IV TITRATE [facility]; Protocol Last Admin: 08/26/19 08:24 Dose: 22 units/kg/hr, 32.013 mls/hr Dopamine HCl/Dextrose (Dopamine In D5w 400 Mg/250 Ml) 400 mg in 250 mls @ 5.457 mls/hr IV TITRATE [facility]; Protocol Last Titration: 08/26/19 15:20 Dose: 0 mcg/kg/min, 0 mls/hr Lactated Ringer's (Ringers, Lactated) 2,000 mls @ 999 mls/hr IV .BOLUS ONE Stop: 08/25/19 17:52 Last Admin: 08/25/19 16:11 Dose: 999 mls/hr Lactated Ringer's (Ringers, Lactated) 1,000 mls @ 999 mls/hr IV .BOLUS ONE Stop: 08/25/19 17:13 Last Admin: 08/25/19 16:48 Dose: 999 mls/hr Midazolam HCl 50 mg/ Sodium (Chloride) 50 mls @ 0.5 mls/hr IV TITRATE [facility]; Protocol Last Titration: 08/27/19 07:55 Dose: 0 mg/hr, 0 mls/hr Albumin Human (Flexbumin 25%) 25 gm in 100 mls @ 100 mls/hr IV Q1H [facility] Stop: 08/26/19 00:46 Last Admin: 08/26/19 00:07 Dose: 100 mls/hr Albumin Human (Flexbumin 25%) 12.5 gm in 50 mls @ 100 mls/hr IV Q8H [facility] Stop: 08/29/19 07:01 Last Admin: 08/29/19 05:59 Dose: 100 mls/hr Lactated Ringer's (Ringers, Lactated) 1,000 mls @ 200 mls/hr IV ASDIRECTED [facility] Last Infusion: 08/26/19 12:30 Dose: 100 mls/hr Magnesium Sulfate 4 gm/ Premix 100 mls @ 25 mls/hr IV ONETIME ONE Stop: 08/26/19 07:31 Last Admin: 08/26/19 06:48 Dose: 25 mls/hr Piperacillin Sod/Tazobactam (Sod 4.5 gm/ Sodium Chloride) 100 mls @ 25 mls/hr IV Q12H [facility] Stop: 08/29/19 10:00 Last Admin: 08/29/19 07:09 Dose: Not Given Lactated Ringer's (Ringers, Lactated) 1,000 mls @ 100 mls/hr IV ASDIRECTED [facility] Last Admin: 08/26/19 18:09 Dose: 100 mls/hr Dextrose/Water (Dextrose 10% In Water) 1,000 mls @ 25 mls/hr IV ASDIRECTED [facility] Dextrose/Water (Dextrose 10% In Water) 1,000 mls @ 25 mls/hr IV ASDIRECTED [facility] Last Admin: 08/27/19 05:52 Dose: 25 mls/hr Dextrose/Water (Dextrose 10% In Water) Confirm Administered Dose 1,000 mls @ as directed .ROUTE .[facility] ONE Stop: 08/27/19 05:47 Last Admin: 08/27/19 05:56 Dose: Not Given Potassium Cl/Dextrose/Lact Ringer's (D5 Lr With 20 Meq Kcl) 1,000 mls @ 100 mls /hr IV ASDIRECTED [facility] Last Infusion: 08/28/19 11:57 Dose: 50 mls/hr Potassium Chloride 10 meq/ (Premix) 100 mls @ 100 mls/hr IV Q1H [facility] Stop: 08/27/19 12:59 Last Admin: 08/27/19 12:55 Dose: 100 mls/hr Potassium Chloride 10 meq/ (Premix) 100 mls @ 100 mls/hr IV Q1H [facility] Stop: 08/28/19 15:29 Last Admin: 08/28/19 15:11 Dose: 100 mls/hr Potassium Cl/Dextrose/Lact Ringer's (D5 Lr With 20 Meq Kcl) 1,000 mls @ 50 mls/ hr IV ASDIRECTED [facility] Last Admin: 08/30/19 18:01 Dose: 50 mls/hr Piperacillin Sod/Tazobactam (Sod 4.5 gm/ Sodium Chloride) 100 mls @ 25 mls/hr IV Q8H [facility] Last Admin: 09/03/19 07:04 Dose: 25 mls/hr Potassium Chloride 10 meq/ (Premix) 100 mls @ 100 mls/hr IV Q1H [facility] Stop: 08/29/19 17:59 Last Admin: 08/29/19 17:47 Dose: 100 mls/hr Magnesium Sulfate 2 gm/ Premix 50 mls @ 25 mls/hr IV 1200,2100 [facility] Stop: 08/29/19 22:59 Last Admin: 08/29/19 20:25 Dose: 25 mls/hr Sodium Chloride (Normal Saline) 1,000 mls @ 999 mls/hr IRR ONETIME ONE Stop: 08/29/19 13:07 Last Admin: 08/29/19 12:52 Dose: 999 mls/hr Argatroban 250 mg/ Sodium (Chloride) 252.5 mls @ 9.69 mls/hr IV TITRATE [facility]; Protocol Last Titration: 09/03/19 08:55 Dose: 0 mcg/kg/min, 0 mls/hr Sodium Chloride (Normal Saline) 100 mls @ 60 mls/hr IV ASDIRECTED [facility] Stop: 08/30/19 13:00 Potassium Chloride 10 meq/ (Premix) 100 mls @ 100 mls/hr IV Q1H [facility] Stop: 08/31/19 11:29 Last Admin: 08/31/19 11:42 Dose: 100 mls/hr Norepinephrine Bitartrate 4 mg (/ Dextrose/Water) 250 mls @ 7.5 mls/hr IV TITRATE [facility]; Protocol Dextrose/Water (Dextrose 5% In Water) Confirm Administered Dose 250 mls @ as directed .ROUTE .STK-MED ONE Stop: 09/01/19 15:54 Last Admin: 09/01/19 18:13 Dose: Not Given Dextrose/Water (Dextrose 5% In Water) 1,000 mls @ 50 mls/hr IV ASDIRECTED [facility] Last Infusion: 09/02/19 20:45 Dose: 25 mls/hr Sodium Chloride (Normal Saline) 100 mls @ 75 mls/hr IV ASDIRECTED [facility] Linezolid 600 mg/ Premix 300 mls @ 300 mls/hr IV Q12H [facility] Last Admin: 09/01/19 19:54 Dose: Not Given Linezolid 600 mg/ Premix 300 mls @ 300 mls/hr IV Q12H [facility] Last Admin: 09/03/19 12:01 Dose: Not Given Potassium Chloride 10 meq/ (Premix) 100 mls @ 100 mls/hr IV Q1H [facility] Stop: 09/03/19 12:14 Last Admin: 09/03/19 12:50 Dose: 100 mls/hr Dextrose/Water (Dextrose 5% In Water) 1,000 mls @ 50 mls/hr IV ASDIRECTED [facility] Last Admin: 09/03/19 11:07 Dose: 50 mls/hr Dextrose/Sodium Chloride (Dextrose 5%-1/2 Ns) 1,000 mls @ 50 mls/hr IV ASDIRECTED [facility] Last Admin: 09/06/19 06:19 Dose: 50 mls/hr Potassium Chloride 10 meq/ (Premix) 100 mls @ 100 mls/hr IV Q1H [facility] Stop: 09/04/19 11:59 Last Admin: 09/04/19 11:33 Dose: 100 mls/hr Potassium Chloride 10 meq/ (Premix) 100 mls @ 100 mls/hr IV Q1H [facility] Stop: 09/05/19 12:59 Last Admin: 09/05/19 12:24 Dose: 100 mls/hr Iopamidol (Isovue-370 (76%)) 100 ml IVPUSH ONETIME ONE Stop: 09/01/19 17:31 Last Admin: 09/01/19 17:31 Dose: 100 ml Levothyroxine Sodium (Synthroid) 75 mcg PO DAILY [facility] Morphine Sulfate (Morphine) 1 mg IVPUSH ONETIME ONE Stop: 08/29/19 07:47 Last Admin: 08/29/19 08:09 Dose: 1 mg Non-Formulary Medication (Losartan) 50 mg PO BEDTIME [facility] Norepinephrine Bitartrate (Levophed) Confirm Administered Dose 4 mg .ROUTE .STK- MED ONE Stop: 08/24/19 16:39 Last Admin: 08/24/19 16:47 Dose: Not Given Norepinephrine Bitartrate (Levophed) Confirm Administered Dose 4 mg .ROUTE .STK- MED ONE Stop: 09/01/19 15:54 Last Admin: 09/01/19 18:12 Dose: Not Given Ondansetron HCl (Zofran) 4 mg IVPUSH ONETIME ONE Stop: 08/24/19 07:27 Last Admin: 12/14/19 08:13 Dose: 4 mg Potassium Chloride (Klor-Con M20) 20 meq PO BID [facility] Last Admin: 09/01/19 08:51 Dose: 20 meq Potassium Chloride (Potassium Chloride Solution) 40 meq NGTUBE ONETIME ONE Stop: 09/01/19 12:01 Last Admin: 09/01/19 11:39 Dose: 40 meq Potassium Chloride (Potassium Chloride Solution) 20 meq NGTUBE BID [facility] Last Admin: 09/06/19 09:29 Dose: 20 meq Psyllium Husk (Metamucil Sugar Free) 1 packet PO BID [facility] Last Admin: 09/04/19 08:35 Dose: 1 packet Sodium Chloride (Saline Flush) 10 ml FLUSH ASDIRECTED PRN PRN Reason: Keep Vein Open Last Admin: 09/04/19 21:12 Dose: 10 ml Sodium Chloride (Saline Flush) 10 ml FLUSH ONETIME ONE Stop: 08/30/19 09:01 Last Admin: 08/30/19 09:09 Dose: 10 ml Succinylcholine Chloride (Quelicin) 200 mg .ROUTE .STK-MED ONE Stop: 08/24/19 15:01 Vecuronium Story (Vecuronium) Confirm Administered Dose 10 mg .ROUTE .STK-MED ONE Stop: 08/24/19 20:13 - Exam Quality Assessment: Supplemental Oxygen General: Alert HEENT: Pupils Equal Neck: Supple Lungs: Normal Respiratory Effort, Rales (Bibasilar) Cardiovascular: Regular Rate, Regular Rhythm GI/Abdominal Exam: Soft, Non-Tender, No Organomegaly, No Distention. No: Normal Bowel Sounds (Diminished) Extremities: Normal Inspection, Normal Range of Motion, Non-Tender, No Pedal Edema Skin: Warm, Dry, Intact Psy/Mental Status: Alert, Normal Affect, Normal Mood Sepsis Event Note - Evaluation Sepsis Screening Result: No Definite Risk - Focused Exam Vital Signs: Vital Signs Temp Pulse Resp BP Pulse Ox Pulse Ox 09/06/19 12:31 79 20 151/104 H 93 L 09/06/19 10:37 93 L 09/06/19 07:54 98.4 F 82 20 155/67 H 93 L 09/06/19 06:20 165/51 H 09/06/19 04:14 97.5 F 77 16 153/51 H 91 L 09/06/19 02:34 95 Date Exam was Performed: 09/06/19 Time Exam was Performed: 13:47 - Problem List Review Problem List Initiated/Reviewed/Updated: Yes - My Orders Last 24 Hours: My Active Orders 09/05/19 14:03 Patient Status [ADT] Routine 09/06/19 11:18 Sodium Chloride 0.9% [Saline Flush] 10 ml FLUSH ASDIRECTED PRN Convert IV to Saline Lock [OM.PC] Routine 09/06/19 21:00 lisinopriL [Prinivil] 20 mg PO BEDTIME 09/07/19 09:00 Potassium Chloride [Potassium Chloride Solution] 20 meq NGTUBE DAILY - Plan Plan:: Acute respiratory failure with respiratory alkalosis-improved Patient's respiratory status is much improved. She is only on 1 L nasal cannula. White count is still elevated but decreasing lending the likelihood to stress. Afebrile. On 1 L nasal cannula. Stopped antibiotics yesterday. White count continues to be elevated but is likely reactive not secondary to infection. Likely will need continued diuretics but may need to decrease dose Blood cultures -negative after greater than 48 hours Urine culture positive for yeast -likely colonization or asymptomatic and no need to treat. C. difficile screen negative Plan: Continue to hold Lasix 20 mg this morning and evaluate throughout the day and tomorrow. Stop IV fluids since we are increasing NG tube feeds. Congestive heart failure with reduced ejection fraction - exacerbation -improved Patient has had a significant improvement in her CHF exacerbation. Her oxygen requirements have gone down greatly and she is on 1 L nasal cannula. She back to her admission weight. Echocardiogram 09/02/2019 1. Left ventricular ejection fraction by visual estimation is 45 to 50%. 2. Global and mildly decreased left ventricular systolic function. 3. Normal right ventricular systolic function. 4. There is mild aortic valve sclerosis without stenosis. 5. Mild aortic valve regurgitation. 6. Mild mitral valve regurgitation. 7. Mild tricuspid valve regurgitation. 8. No vegetations identified. Plan -Start lisinopril 20 mg daily secondary to ease of crushing it and placing it down the Dobbhoff feeding tube. 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 Rucker Wound dehiscence Decreased oral intake and complaining of abdominal pain-->Abnormal CT --> surgery consulted--> R hemicolectomy and small bowel resection Central line, arterial line (removed 08/31/2019) and ETT placed (extubated 08/30) Started on norepinephrine with inadequate BP response--> started on dopamine which improved response (off both) CXR consistent with pulmonary edema on 09/01/2019 Patient had difficulty with tube feeds. Advancing NG tube feeds. On Reglan and Carafate PLAN -DC central line -Dobbhoff placed - RT f/u - NG tube feeds at 40 mL/h and increase slowly until goal of 65. Dr. Rucker managing. - Pain control with PRN morphine -Stop argatroban and restart low-dose baby aspirin. Heparin induced thrombocytopenia Admission platelets 341, platelets back up above 100,000 since stopping heparin T score 6, highly likely PLAN - PF4 immunoassay ordered Acute kidney failure, improving Chronic kidney disease, stage 3 Hypokalemia secondary to diuresis -improved Lactic acid normal Urine output has increased significantly and improved with Lasix Creatinine stable at 1.3. PLAN - Monitor urine output - Renally dosed medications - Avoid nephrotoxic agents as much as possible -Lisinopril is easily crushed and placed down the Dobbhoff NG tube. GERD (gastroesophageal reflux disease) No acute issues PLAN - Scheduled IV Pantoprazole Hypertension BP on admission stable Started dropping perioperatively requiring vasopressors Pressors off since 08/27 Worsening hypertension PLAN -Stop amlodipine 10 -Start lisinopril 20 mg per NG tube - continue chlorthalidone 25 mg systolic blood pressure greater than 180 - PRN Hydralazine Hypothyroidism No acute issues PLAN - Continue home meds Vascular dementia alf resident Requires 1 assist for bed mobility, transfer, dressing, personal hygiene and bathing 2 assist for ambulation Incontinent of bowel and bladder Hypothermia, resolved Septic shock, resolved Lactic acidosis, resolved Metabolic acidosis, resolved Respiratory alkalosis, resolved PROPHYLAXIS DVT- SCDs GI- pantoprazole CODE STATUS: FULL CODE DISPOSITION: Patient admitted to the ICU for vasopressors and mechanical ventilation. Taken to OR 14 with subsequent bowel resection. Patient's overall prognosis is very poor with [place] score or 32, predicted mortality of 74%; family aware. [facility] currently stable and [facility] refused admission. Now trying to get patient SNF placement.
[2019-09-06] MEDS: Lisinopril 20 MG Tab PO SCH (20:35)
[2019-09-07] MEDS ORDERED: Dextrose 5%-0.45% NaCl 1,000 ML IV SCH (01:15)
[2019-09-07] MEDS: Metoclopramide 10 MG/2 ML SDV IVPUSH SCH ×3 (01:27→17:28)
[2019-09-07] MEDS: Albuterol/Ipratropium 3.0-0.5 MG/3 ML Neb Soln NEB SCH ×4 (03:42→21:22)
[2019-09-07] MEDS: Pantoprazole 40 MG Vial IVPUSH SCH (09:30)
[2019-09-07] MEDS: Potassium Chloride 10% 20 MEQ/15 ML Soln 15 ML UD Cup NGTUBE SCH (11:57)
[2019-09-07] MEDS: Chlorthalidone 25 MG Tab PO SCH (11:57)
[2019-09-07] MEDS: Sucralfate Suspension 1 GM/10 ML Cup NGTUBE SCH ×2 (11:57→22:04)
[2019-09-07] MEDS: Aspirin 81 MG Tab.Chew PO SCH (11:57)
--- NOTE | 2019-09-07 13:02 | PCM.PN ---
- General Info Date of Service: 09/07/19 Admission Dx/Problem (Free Text): Decreased urine output Norepinephrine drip Fentanyl and versed for sedation LR for fluid repletion Levaquin, vancomycin and Zosyn Subjective Update: Patient pulled out her NG tube last night. IV fluids were restarted and the decision was made to reinsert the NG tube this morning and restart her on tube feeds after she failed her swallow eval. Patient is not able to swallow anything but very small sips of water. Son and [id number] are at bedside. Patient continues to be very confused. Functional Status: Reports: Pain Controlled - Review of Systems General: Reports: No Symptoms HEENT: Reports: No Symptoms Pulmonary: Reports: No Symptoms Cardiovascular: Reports: No Symptoms Gastrointestinal: Reports: No Symptoms - Patient Data Vitals - Most Recent: Last Vital Signs Temp 97.9 F 09/07/19 10:58 Pulse 87 09/07/19 09:13 Resp 20 09/07/19 11:23 BP 141/44 H 09/07/19 11:23 Pulse Ox 93 L 09/07/19 09:13 Weight - Most Recent: 152 lb 14.4 oz I&O - Last 24 Hours: Intake & Output 09/06/19 09/07/19 09/07/19 22:59 06:59 14:59 Intake Total 667 425 Balance 667 425 Gerardo Results Last 24 Hours: Microbiology 09/01/19 20:20 Aerobic Blood Culture - Preliminary Blood - Venous - Lab Draw NO GROWTH AFTER 5 DAYS Anaerobic Blood Culture - Preliminary NO GROWTH AFTER 5 DAYS 09/01/19 19:50 Aerobic Blood Culture - Preliminary Blood - Venous NO GROWTH AFTER 5 DAYS Anaerobic Blood Culture - Preliminary NO GROWTH AFTER 5 DAYS Med Orders - Current: Current Medications Albuterol/Ipratropium (Duoneb 3.0-0.5 Mg/3 Ml) 3 ml NEB Q6HRRT [facility] Last Admin: 09/07/19 09:13 Dose: 3 ml Aspirin (Aspirin) 81 mg PO DAILY [facility] Last Admin: 09/07/19 11:57 Dose: 81 mg Chlorthalidone (Chlorthalidone) 25 mg PO DAILY [facility] Last Admin: 09/07/19 11:57 Dose: 25 mg Hydralazine HCl (Apresoline) 10 mg IVPUSH Q2H PRN PRN Reason: Systolic >180 / Diastolic >100 Last Admin: 08/31/19 01:25 Dose: 10 mg Lisinopril (Prinivil) 20 mg PO BEDTIME [facility] Last Admin: 09/06/19 20:35 Dose: 20 mg Metoclopramide HCl (Reglan) 5 mg IVPUSH Q8H [facility] Last Admin: 09/07/19 09:26 Dose: 5 mg Morphine Sulfate (Morphine) 1 mg IVPUSH Q4H PRN PRN Reason: Pain Last Admin: 09/04/19 21:08 Dose: 1 mg Pantoprazole Sodium (Protonix Iv) 40 mg IVPUSH DAILY [facility] Last Admin: 09/07/19 09:30 Dose: 40 mg Potassium Chloride (Potassium Chloride Solution) 20 meq NGTUBE DAILY [facility] Last Admin: 09/07/19 11:57 Dose: 20 meq Sodium Chloride (Saline Flush) 10 ml FLUSH ASDIRECTED PRN PRN Reason: Keep Vein Open Sucralfate (Carafate) 1 gm NGTUBE BID [facility] Last Admin: 09/07/19 11:57 Dose: 1 gm Discontinued Medications Amlodipine Besylate (Norvasc) 10 mg PO DAILY [facility] Last Admin: 09/05/19 09:23 Dose: 10 mg Atropine Sulfate (Atropine 0.1 Mg/Ml) 0.5 mg IVPUSH ONETIME ONE Stop: 08/27/19 07:57 Last Admin: 08/27/19 08:09 Dose: 0.5 mg Bumetanide (Bumex) 1 mg IVPUSH ONETIME ONE Stop: 08/25/19 22:49 Last Admin: 08/26/19 00:07 Dose: 1 mg Bumetanide (Bumex) 1 mg IVPUSH BID [facility] Last Admin: 08/28/19 08:06 Dose: 1 mg Dextrose/Water (Dextrose 50% In Water) 25 ml IVPUSH NOW STA Stop: 08/27/19 05:41 Last Admin: 08/27/19 05:47 Dose: 25 ml Enalaprilat (Vasotec Iv) 0.625 mg IVPUSH Q6H PRN PRN Reason: Hypertension Last Admin: 09/06/19 12:31 Dose: 0.625 mg Enalaprilat (Vasotec Iv) 1.25 mg IVPUSH Q6H [facility] Last Admin: 09/06/19 14:11 Dose: Not Given Enalaprilat (Vasotec Iv) 1.25 mg IVPUSH Q6H [facility] Enoxaparin Sodium (Lovenox) 70 mg SUBCUT Q24H [facility] Last Admin: 08/28/19 11:48 Dose: 70 mg Ephedrine Sulfate (Ephedrine In Ns) Confirm Administered Dose 25 mg .ROUTE .STK- MED ONE Stop: 08/24/19 21:32 Etomidate (Amidate) 40 mg IVPUSH .STK-MED ONE Stop: 08/24/19 15:01 Fentanyl (Sublimaze) Confirm Administered Dose 250 mcg .ROUTE .STK-MED ONE Stop: 08/24/19 18:10 Furosemide (Lasix) 60 mg IVPUSH NOW ONE Stop: 09/01/19 16:59 Last Admin: 09/01/19 17:15 Dose: 60 mg Furosemide (Lasix) 60 mg IVPUSH ONETIME ONE Stop: 09/02/19 00:01 Last Admin: 09/01/19 23:55 Dose: 60 mg Furosemide (Lasix) 40 mg IVPUSH NOW ONE Stop: 09/02/19 10:49 Last Admin: 09/02/19 11:59 Dose: 40 mg Furosemide (Lasix) 40 mg IVPUSH NOW ONE Stop: 09/02/19 18:19 Last Admin: 09/02/19 18:26 Dose: 40 mg Furosemide (Lasix) 40 mg IVPUSH BID [facility] Last Admin: 09/03/19 21:03 Dose: 40 mg Furosemide (Lasix) 20 mg IVPUSH DAILY [facility] Last Admin: 09/05/19 12:25 Dose: Not Given Heparin Sodium (Porcine) (Heparin Sodium) 5,000 units IVPUSH .BOLUS ONE Stop: 08/25/19 13:27 Last Admin: 08/25/19 14:11 Dose: 5,000 units Heparin Sodium (Porcine) (Heparin Lock Flush 100 Units/Ml) Confirm Administered Dose 500 units .ROUTE .STK-MED ONE Stop: 08/25/19 22:38 Last Admin: 08/25/19 23:02 Dose: 500 units Hydralazine HCl (Apresoline) 10 mg IVPUSH ONETIME ONE Stop: 08/29/19 07:47 Last Admin: 08/29/19 08:08 Dose: 10 mg Hydralazine HCl (Apresoline) 10 mg IVPUSH ONETIME ONE Stop: 08/30/19 11:55 Last Admin: 08/30/19 12:03 Dose: 10 mg Hydrocortisone Sodium Succinate (Solu-Cortef) 50 mg IV Q8H [facility] Last Admin: 08/29/19 12:21 Dose: 50 mg Hydromorphone HCl (Dilaudid) 0.5 mg IVPUSH ONETIME ONE Stop: 08/24/19 07:28 Last Admin: 08/24/19 08:15 Dose: 0.5 mg Sodium Chloride (Normal Saline) 1,000 mls @ 1,000 mls/hr IV .BOLUS STA Stop: 08/24/19 08:25 Last Admin: 08/24/19 08:13 Dose: 1,000 mls/hr Cefepime HCl 2 gm/ Premix 50 mls @ 100 mls/hr IV ONETIME ONE Stop: 08/24/19 13:18 Last Admin: 08/24/19 13:19 Dose: 100 mls/hr Lactated Ringer's (Ringers, Lactated) 1,100 mls @ 1,000 mls/hr IV .BOLUS ONE Stop: 08/24/19 14:13 Last Admin: 08/24/19 13:40 Dose: 1,000 mls/hr Levofloxacin/Dextrose 750 mg/ (Premix) 150 mls @ 100 mls/hr IV ONETIME ONE Stop: 08/24/19 15:07 Last Admin: 08/24/19 16:03 Dose: 100 mls/hr Piperacillin Sod/Tazobactam (Sod 4.5 gm/ Sodium Chloride) 100 mls @ 25 mls/hr IV Q8H [facility] Last Admin: 08/26/19 05:13 Dose: 25 mls/hr Vancomycin HCl 1 gm/ Sodium (Chloride) 250 mls @ 250 mls/hr IV ONETIME ONE Stop: 08/24/19 14:37 Last Admin: 08/24/19 16:06 Dose: 250 mls/hr Fentanyl 2,500 mcg/ Sodium (Chloride) 250 mls @ 7.27 mls/hr IV TITRATE [facility]; Protocol Last Titration: 08/28/19 04:23 Dose: 0 mcg/kg/hr, 0 mls/hr Midazolam HCl 50 mg/ Sodium (Chloride) 50 mls @ 0.5 mls/hr IV TITRATE [facility]; Protocol Stop: 08/25/19 15:29 Last Titration: 08/25/19 11:57 Dose: 2 mg/hr, 2 mls/hr Lactated Ringer's (Ringers, Lactated) 1,000 mls @ 125 mls/hr IV ASDIRECTED [facility] Last Admin: 08/25/19 01:00 Dose: 125 mls/hr Norepinephrine Bitartrate 4 mg (/ Dextrose/Water) 250 mls @ 7.5 mls/hr IV TITRATE [facility]; Protocol Last Titration: 08/27/19 07:25 Dose: 0 mcg/min, 0 mls/hr Sodium Chloride (Normal Saline) Confirm Administered Dose 1,000 mls @ as directed .ROUTE .K-MED ONE Stop: 08/24/19 17:09 Last Admin: 08/24/19 17:16 Dose: 1 mls/hr Lactated Ringer's (Ringers, Lactated) Confirm Administered Dose 1,000 mls @ as directed .ROUTE .[facility]-MED ONE Stop: 08/24/19 18:34 Lactated Ringer's (Ringers, Lactated) Confirm Administered Dose 1,000 mls @ as directed .ROUTE .ST-MED ONE Stop: 08/24/19 19:10 Lactated Ringer's (Ringers, Lactated) Confirm Administered Dose 1,000 mls @ as directed .ROUTE .ST-MED ONE Stop: 08/24/19 19:46 Lactated Ringer's (Ringers, Lactated) Confirm Administered Dose 1,000 mls @ as directed .ROUTE .K-MED ONE Stop: 08/24/19 20:40 Lactated Ringer's (Ringers, Lactated) 1,000 mls @ 250 mls/hr IV ASDIRECTED [facility] Last Infusion: 08/26/19 12:28 Dose: Infused Lactated Ringer's (Ringers, Lactated) 1,000 mls @ 999 mls/hr IV .BOLUS ONE Stop: 08/25/19 09:03 Last Admin: 08/25/19 08:10 Dose: 999 mls/hr Heparin Sodium/Dextrose (Heparin 25,000 Units In D5w 500 Ml) 25,000 units in 500 mls @ 26 mls/hr IV TITRATE [facility]; Protocol Last Admin: 08/26/19 08:24 Dose: 22 units/kg/hr, 32.013 mls/hr Dopamine HCl/Dextrose (Dopamine In D5w 400 Mg/250 Ml) 400 mg in 250 mls @ 5.457 mls/hr IV TITRATE [facility]; Protocol Last Titration: 08/26/19 15:20 Dose: 0 mcg/kg/min, 0 mls/hr Lactated Ringer's (Ringers, Lactated) 2,000 mls @ 999 mls/hr IV .BOLUS ONE Stop: 08/25/19 17:52 Last Admin: 08/25/19 16:11 Dose: 999 mls/hr Lactated Ringer's (Ringers, Lactated) 1,000 mls @ 999 mls/hr IV .BOLUS ONE Stop: 08/25/19 17:13 Last Admin: 08/25/19 16:48 Dose: 999 mls/hr Midazolam HCl 50 mg/ Sodium (Chloride) 50 mls @ 0.5 mls/hr IV TITRATE [facility]; Protocol Last Titration: 08/27/19 07:55 Dose: 0 mg/hr, 0 mls/hr Albumin Human (Flexbumin 25%) 25 gm in 100 mls @ 100 mls/hr IV Q1H [facility] Stop: 08/26/19 00:46 Last Admin: 08/26/19 00:07 Dose: 100 mls/hr Albumin Human (Flexbumin 25%) 12.5 gm in 50 mls @ 100 mls/hr IV Q8H [facility] Stop: 08/29/19 07:01 Last Admin: 08/29/19 05:59 Dose: 100 mls/hr Lactated Ringer's (Ringers, Lactated) 1,000 mls @ 200 mls/hr IV ASDIRECTED [facility] Last Infusion: 08/26/19 12:30 Dose: 100 mls/hr Magnesium Sulfate 4 gm/ Premix 100 mls @ 25 mls/hr IV ONETIME ONE Stop: 08/26/19 07:31 Last Admin: 08/26/19 06:48 Dose: 25 mls/hr Piperacillin Sod/Tazobactam (Sod 4.5 gm/ Sodium Chloride) 100 mls @ 25 mls/hr IV Q12H [facility] Stop: 08/29/19 10:00 Last Admin: 08/29/19 07:09 Dose: Not Given Lactated Ringer's (Ringers, Lactated) 1,000 mls @ 100 mls/hr IV ASDIRECTED [facility] Last Admin: 08/26/19 18:09 Dose: 100 mls/hr Dextrose/Water (Dextrose 10% In Water) 1,000 mls @ 25 mls/hr IV ASDIRECTED [facility] Dextrose/Water (Dextrose 10% In Water) 1,000 mls @ 25 mls/hr IV ASDIRECTED [facility] Last Admin: 08/27/19 05:52 Dose: 25 mls/hr Dextrose/Water (Dextrose 10% In Water) Confirm Administered Dose 1,000 mls @ as directed .ROUTE .STK-MED ONE Stop: 08/27/19 05:47 Last Admin: 08/27/19 05:56 Dose: Not Given Potassium Cl/Dextrose/Lact Ringer's (D5 Lr With 20 Meq Kcl) 1,000 mls @ 100 mls /hr IV ASDIRECTED [facility] Last Infusion: 08/28/19 11:57 Dose: 50 mls/hr Potassium Chloride 10 meq/ (Premix) 100 mls @ 100 mls/hr IV Q1H [facility] Stop: 08/27/19 12:59 Last Admin: 08/27/19 12:55 Dose: 100 mls/hr Potassium Chloride 10 meq/ (Premix) 100 mls @ 100 mls/hr IV Q1H [facility] Stop: 08/28/19 15:29 Last Admin: 08/28/19 15:11 Dose: 100 mls/hr Potassium Cl/Dextrose/Lact Ringer's (D5 Lr With 20 Meq Kcl) 1,000 mls @ 50 mls/ hr IV ASDIRECTED [facility] Last Admin: 08/30/19 18:01 Dose: 50 mls/hr Piperacillin Sod/Tazobactam (Sod 4.5 gm/ Sodium Chloride) 100 mls @ 25 mls/hr IV Q8H [facility] Last Admin: 09/03/19 07:04 Dose: 25 mls/hr Potassium Chloride 10 meq/ (Premix) 100 mls @ 100 mls/hr IV Q1H [facility] Stop: 08/29/19 17:59 Last Admin: 08/29/19 17:47 Dose: 100 mls/hr Magnesium Sulfate 2 gm/ Premix 50 mls @ 25 mls/hr IV 1200,2100 [facility] Stop: 08/29/19 22:59 Last Admin: 08/29/19 20:25 Dose: 25 mls/hr Sodium Chloride (Normal Saline) 1,000 mls @ 999 mls/hr IRR ONETIME ONE Stop: 08/29/19 13:07 Last Admin: 08/29/19 12:52 Dose: 999 mls/hr Argatroban 250 mg/ Sodium (Chloride) 252.5 mls @ 9.69 mls/hr IV TITRATE [facility]; Protocol Last Titration: 09/03/19 08:55 Dose: 0 mcg/kg/min, 0 mls/hr Sodium Chloride (Normal Saline) 100 mls @ 60 mls/hr IV ASDIRECTED [facility] Stop: 08/30/19 13:00 Potassium Chloride 10 meq/ (Premix) 100 mls @ 100 mls/hr IV Q1H [facility] Stop: 08/31/19 11:29 Last Admin: 08/31/19 11:42 Dose: 100 mls/hr Norepinephrine Bitartrate 4 mg (/ Dextrose/Water) 250 mls @ 7.5 mls/hr IV TITRATE [facility]; Protocol Dextrose/Water (Dextrose 5% In Water) Confirm Administered Dose 250 mls @ as directed .ROUTE .STK-MED ONE Stop: 09/01/19 15:54 Last Admin: 09/01/19 18:13 Dose: Not Given Dextrose/Water (Dextrose 5% In Water) 1,000 mls @ 50 mls/hr IV ASDIRECTED [facility] Last Infusion: 09/02/19 20:45 Dose: 25 mls/hr Sodium Chloride (Normal Saline) 100 mls @ 75 mls/hr IV ASDIRECTED [facility] Linezolid 600 mg/ Premix 300 mls @ 300 mls/hr IV Q12H [facility] Last Admin: 09/01/19 19:54 Dose: Not Given Linezolid 600 mg/ Premix 300 mls @ 300 mls/hr IV Q12H [facility] Last Admin: 09/03/19 12:01 Dose: Not Given Potassium Chloride 10 meq/ (Premix) 100 mls @ 100 mls/hr IV Q1H [facility] Stop: 09/03/19 12:14 Last Admin: 09/03/19 12:50 Dose: 100 mls/hr Dextrose/Water (Dextrose 5% In Water) 1,000 mls @ 50 mls/hr IV ASDIRECTED [facility] Last Admin: 09/03/19 11:07 Dose: 50 mls/hr Dextrose/Sodium Chloride (Dextrose 5%-1/2 Ns) 1,000 mls @ 50 mls/hr IV ASDIRECTED [facility] Last Admin: 09/06/19 06:19 Dose: 50 mls/hr Potassium Chloride 10 meq/ (Premix) 100 mls @ 100 mls/hr IV Q1H [facility] Stop: 09/04/19 11:59 Last Admin: 09/04/19 11:33 Dose: 100 mls/hr Potassium Chloride 10 meq/ (Premix) 100 mls @ 100 mls/hr IV Q1H [facility] Stop: 09/05/19 12:59 Last Admin: 09/05/19 12:24 Dose: 100 mls/hr Dextrose/Sodium Chloride (Dextrose 5%-1/2 Ns) 1,000 mls @ 50 mls/hr IV ASDIRECTED [facility] Last Admin: 09/07/19 01:28 Dose: 50 mls/hr Iopamidol (Isovue-370 (76%)) 100 ml IVPUSH ONETIME ONE Stop: 09/01/19 17:31 Last Admin: 09/01/19 17:31 Dose: 100 ml Levothyroxine Sodium (Synthroid) 75 mcg PO DAILY [facility] Morphine Sulfate (Morphine) 1 mg IVPUSH ONETIME ONE Stop: 08/29/19 07:47 Last Admin: 08/29/19 08:09 Dose: 1 mg Non-Formulary Medication (Losartan) 50 mg PO BEDTIME [facility] Norepinephrine Bitartrate (Levophed) Confirm Administered Dose 4 mg .ROUTE .STK- MED ONE Stop: 08/24/19 16:39 Last Admin: 08/24/19 16:47 Dose: Not Given Norepinephrine Bitartrate (Levophed) Confirm Administered Dose 4 mg .ROUTE .STK- MED ONE Stop: 09/01/19 15:54 Last Admin: 09/01/19 18:12 Dose: Not Given Ondansetron HCl (Zofran) 4 mg IVPUSH ONETIME ONE Stop: 08/24/19 07:27 Last Admin: 08/24/19 08:13 Dose: 4 mg Potassium Chloride (Klor-Con M20) 20 meq PO BID [facility] Last Admin: 09/01/19 08:51 Dose: 20 meq Potassium Chloride (Potassium Chloride Solution) 40 meq NGTUBE ONETIME ONE Stop: 09/01/19 12:01 Last Admin: 09/01/19 11:39 Dose: 40 meq Potassium Chloride (Potassium Chloride Solution) 20 meq NGTUBE BID [facility] Last Admin: 09/06/19 09:29 Dose: 20 meq Psyllium Husk (Metamucil Sugar Free) 1 packet PO BID [facility] Last Admin: 09/04/19 08:35 Dose: 1 packet Sodium Chloride (Saline Flush) 10 ml FLUSH ASDIRECTED PRN PRN Reason: Keep Vein Open Last Admin: 09/04/19 21:12 Dose: 10 ml Sodium Chloride (Saline Flush) 10 ml FLUSH ONETIME ONE Stop: 08/30/19 09:01 Last Admin: 08/30/19 09:09 Dose: 10 ml Succinylcholine Chloride (Quelicin) 200 mg .ROUTE .STK-MED ONE Stop: 08/24/19 15:01 Vecuronium [place] (Vecuronium) Confirm Administered Dose 10 mg .ROUTE .STK-MED ONE Stop: 08/24/19 20:13 - Exam Quality Assessment: Supplemental Oxygen General: Other (Awake without acute distress) HEENT: Pupils Equal Neck: Supple Lungs: Normal Respiratory Effort, Rales (Bibasilar) Cardiovascular: Regular Rate, Regular Rhythm GI/Abdominal Exam: Normal Bowel Sounds, Soft, Non-Tender, No Organomegaly, No Distention Back Exam: Normal Inspection Extremities: Normal Inspection, Normal Range of Motion, Normal Capillary Refill , Pedal Edema (Scant to 1+) Skin: Warm, Dry, Intact Neurological: No New Focal Deficit Psy/Mental Status: Other (Disoriented) Sepsis Event Note - Evaluation Sepsis Screening Result: No Definite Risk - Focused Exam Vital Signs: Vital Signs Temp Pulse Pulse Resp BP Pulse Ox Pulse Ox 09/07/19 11:23 20 141/44 H 09/07/19 10:58 97.9 F 09/07/19 09:13 87 93 L 09/07/19 08:01 97.9 F 78 20 149/52 H 92 L 09/07/19 05:20 98.2 F 82 18 161/60 H 96 09/07/19 03:44 97 Date Exam was Performed: 09/07/19 Time Exam was Performed: 12:56 - Problem List Review Problem List Initiated/Reviewed/Updated: Yes - My Orders Last 24 Hours: My Active Orders 09/06/19 14:12 Central Venous Line Discontinue [OM.PC] Routine 09/06/19 21:00 lisinopriL [Prinivil] 20 mg PO BEDTIME 09/07/19 01:07 [employer] Evaluation and Treatment [CONS] Routine 09/07/19 09:00 Potassium Chloride [Potassium Chloride Solution] 20 meq NGTUBE DAILY 09/07/19 10:09 Chest 1V-Tube Placement Chk NC [CR] Stat 09/07/19 10:59 Nrsg Assess Restraint Init/Mon [RC] Q2H 09/07/19 11:00 Initiate/Renew Non-Violent Restraints (All Ages) Q24H - Plan Plan:: Acute respiratory failure with respiratory alkalosis-improved Patient's respiratory status is much improved. She is only on 1 L nasal cannula. White count is still elevated but decreasing lending the likelihood to stress. Afebrile. On 1 L nasal cannula. Stopped antibiotics White count continues to be elevated but is likely reactive not secondary to infection. Likely will need continued diuretics but may need to decrease dose Blood cultures -negative after greater than 48 hours Urine culture positive for yeast -likely colonization or asymptomatic and no need to treat. C. difficile screen negative Plan: Continue to hold Lasix 20 mg this morning and evaluate throughout the day and tomorrow. Stop IV fluids since we are restarting NG tube feeds. Congestive heart failure with reduced ejection fraction - exacerbation -improved Patient has had a significant improvement in her CHF exacerbation. Her oxygen requirements have gone down greatly and she is on 1 L nasal cannula. She back to her admission weight. Echocardiogram 09/02/2019 1. Left ventricular ejection fraction by visual estimation is 45 to 50%. 2. Global and mildly decreased left ventricular systolic function. 3. Normal right ventricular systolic function. 4. There is mild aortic valve sclerosis without stenosis. 5. Mild aortic valve regurgitation. 6. Mild mitral valve regurgitation. 7. Mild tricuspid valve regurgitation. 8. No vegetations identified. Plan -Start lisinopril 20 mg daily secondary to ease of crushing it and placing it down the Dobbhoff feeding tube. 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 Rucker Wound dehiscence Decreased oral intake and complaining of abdominal pain-->Abnormal CT --> surgery consulted--> R hemicolectomy and small bowel resection Central line, arterial line (removed 08/31/2019) and ETT placed (extubated 08/30) Started on norepinephrine with inadequate BP response--> started on dopamine which improved response (off both) CXR consistent with pulmonary edema on 09/01/2019 Patient had difficulty with tube feeds. Advancing NG tube feeds. On Reglan and Carafate PLAN -DC central line -Dobbhoff placed - RT f/u - NG tube feeds at 50 mL/h and increase slowly until goal of 65. Dr. Rucker managing. - Pain control with PRN morphine -Stopped argatroban and restart low-dose baby aspirin. -Nursing care for wound care. Heparin induced thrombocytopenia -ruled out Admission platelets 341, platelets back up above 100,000 since stopping heparin T score 6, highly likely Heparin-induced platelet antibody 0.114. Reference range: 0.000-0.0400. Acute kidney failure, improving Chronic kidney disease, stage 3 Hypokalemia secondary to diuresis -improved Lactic acid normal Urine output has increased significantly and improved with Lasix Creatinine stable at 1.3. PLAN - Monitor urine output - Renally dosed medications - Avoid nephrotoxic agents as much as possible -Lisinopril is easily crushed and placed down the Dobbhoff NG tube. GERD (gastroesophageal reflux disease) No acute issues PLAN - Scheduled IV Pantoprazole Hypertension BP on admission stable Started dropping perioperatively requiring vasopressors Pressors off since 08/27 Worsening hypertension PLAN -Stop amlodipine 10 -Start lisinopril 20 mg per NG tube - continue chlorthalidone 25 mg systolic blood pressure greater than 180 - PRN Hydralazine Hypothyroidism No acute issues PLAN - Continue home meds Vascular dementia prison resident Requires 1 assist for bed mobility, transfer, dressing, personal hygiene and bathing 2 assist for ambulation Incontinent of bowel and bladder Hypothermia, resolved Septic shock, resolved Lactic acidosis, resolved Metabolic acidosis, resolved Respiratory alkalosis, resolved PROPHYLAXIS DVT- SCDs GI- pantoprazole CODE STATUS: FULL CODE DISPOSITION: Patient admitted to the ICU for vasopressors and mechanical ventilation. Taken to OR 14 with subsequent bowel resection. Patient's overall prognosis is very poor with [id number] POT[place]ATOMI score or 32, predicted mortality of 74%; family aware. Patient currently stable and awaiting placement at [facility]. [facility] refused admission. Now trying to get patient SNF placement.
[2019-09-07] MEDS: Lisinopril 20 MG Tab PO SCH (22:04)
[2019-09-08] MEDS: Metoclopramide 10 MG/2 ML SDV IVPUSH SCH ×3 (00:35→16:08)
[2019-09-08] MEDS: Albuterol/Ipratropium 3.0-0.5 MG/3 ML Neb Soln NEB SCH ×2 (03:07→08:34)
[2019-09-08] MEDS: Morphine 2 MG/ML Syringe IVPUSH PRN (03:57)
[2019-09-08] MEDS: Aspirin 81 MG Tab.Chew PO SCH (09:19)
[2019-09-08] MEDS: Chlorthalidone 25 MG Tab PO SCH (09:19)
[2019-09-08] MEDS: Potassium Chloride 10% 20 MEQ/15 ML Soln 15 ML UD Cup NGTUBE SCH (09:25)
[2019-09-08] MEDS: Sucralfate Suspension 1 GM/10 ML Cup NGTUBE SCH ×2 (09:32→22:06)
[2019-09-08] MEDS: Pantoprazole 40 MG Vial IVPUSH SCH (09:38)
[2019-09-08] MEDS ORDERED: D5 1/2 NS w/ 20 mEq/L KCl 1,000 ML IV SCH (09:45)
[2019-09-08] MEDS ORDERED: Albuterol/Ipratropium 3.0-0.5 MG/3 ML Neb Soln NEB PRN (10:39)
--- NOTE | 2019-09-08 14:00 | PCM.PN ---
- General Info Date of Service: 09/08/19 Admission Dx/Problem (Free Text): Decreased urine output Norepinephrine drip Fentanyl and versed for sedation LR for fluid repletion Levaquin, vancomycin and Zosyn Subjective Update: Patient continues to be improved, but it seemed that she was more interactive last night. NG tube feeds are almost at goal and plan is to get them to goal today. Functional Status: Reports: Pain Controlled - Review of Systems General: Reports: No Symptoms HEENT: Reports: No Symptoms Pulmonary: Reports: No Symptoms Cardiovascular: Reports: No Symptoms Gastrointestinal: Reports: No Symptoms - Patient Data Vitals - Most Recent: Last Vital Signs Temp 98.1 F 09/08/19 13:16 Pulse 94 09/08/19 13:16 Resp 24 H 09/08/19 13:16 BP 142/48 H 09/08/19 13:16 Pulse Ox 93 L 09/08/19 13:16 Weight - Most Recent: 150 lb 8 oz I&O - Last 24 Hours: Intake & Output 09/07/19 09/08/19 09/08/19 22:59 06:59 14:59 Intake Total 310 125 Balance 310 125 Lab Results Last 24 Hours: Laboratory Results - last 24 hr 09/08/19 Range/Units 04:41 Sodium 138 (136-145) mEq/L Potassium 3.6 (3.5-5.1) mEq/L Chloride 106 (98-107) mEq/L Carbon Dioxide 18 L (21-32) mEq/L Anion Gap 17.6 H (5-15) BUN 19 H (7-18) mg/dL Creatinine 1.3 H (0.55-1.02) mg/dL Est Cr Clr Drug Dosing 26.16 mL/min Estimated GFR (MDRD) 39 (>60) mL/min BUN/Creatinine Ratio 14.6 (14-18) Glucose 120 H (83-115) mg/dL Calcium 8.4 L (8.5-10.1) mg/dL Gerardo Results Last 24 Hours: Microbiology 09/01/19 20:20 Aerobic Blood Culture - Preliminary Blood - Venous - Lab Draw NO GROWTH AFTER 6 DAYS Anaerobic Blood Culture - Preliminary NO GROWTH AFTER 6 DAYS 09/01/19 19:50 Aerobic Blood Culture - Preliminary Blood - Venous NO GROWTH AFTER 6 DAYS Anaerobic Blood Culture - Preliminary NO GROWTH AFTER 6 DAYS Med Orders - Current: Current Medications Albuterol/Ipratropium (Duoneb 3.0-0.5 Mg/3 Ml) 3 ml NEB Q6H PRN PRN Reason: Wheezing Aspirin (Aspirin) 81 mg PO DAILY [facility] Last Admin: 09/08/19 09:19 Dose: 81 mg Chlorthalidone (Chlorthalidone) 25 mg PO DAILY [facility] Last Admin: 09/08/19 09:19 Dose: 25 mg Hydralazine HCl (Apresoline) 10 mg IVPUSH Q2H PRN PRN Reason: Systolic >180 / Diastolic >100 Last Admin: 08/31/19 01:25 Dose: 10 mg Potassium Chloride/Dextrose/Sod Cl (D5 1/2 Ns W/ 20 Meq/L Kcl) 1,000 mls @ 75 mls/hr IV ASDIRECTED [facility] Stop: 09/08/19 23:04 Last Admin: 09/08/19 11:54 Dose: 75 mls/hr Lisinopril (Prinivil) 20 mg PO BEDTIME [facility] Last Admin: 09/07/19 22:04 Dose: 20 mg Metoclopramide HCl (Reglan) 5 mg IVPUSH Q8H [facility] Last Admin: 09/08/19 09:35 Dose: 5 mg Morphine Sulfate (Morphine) 1 mg IVPUSH Q4H PRN PRN Reason: Pain Last Admin: 09/08/19 03:57 Dose: 1 mg Pantoprazole Sodium (Protonix Iv) 40 mg IVPUSH DAILY [facility] Last Admin: 09/08/19 09:38 Dose: 40 mg Potassium Chloride (Potassium Chloride Solution) 20 meq NGTUBE DAILY [facility] Last Admin: 09/08/19 09:25 Dose: 20 meq Sodium Chloride (Saline Flush) 10 ml FLUSH ASDIRECTED PRN PRN Reason: Keep Vein Open Sucralfate (Carafate) 1 gm NGTUBE BID [facility] Last Admin: 09/08/19 09:32 Dose: 1 gm Discontinued Medications Albuterol/Ipratropium (Duoneb 3.0-0.5 Mg/3 Ml) 3 ml NEB Q6HRRT [facility] Last Admin: 09/08/19 08:34 Dose: 3 ml Amlodipine Besylate (Norvasc) 10 mg PO DAILY [facility] Last Admin: 09/05/19 09:23 Dose: 10 mg Atropine Sulfate (Atropine 0.1 Mg/Ml) 0.5 mg IVPUSH ONETIME ONE Stop: 08/27/19 07:57 Last Admin: 08/27/19 08:09 Dose: 0.5 mg Bumetanide (Bumex) 1 mg IVPUSH ONETIME ONE Stop: 08/25/19 22:49 Last Admin: 08/26/19 00:07 Dose: 1 mg Bumetanide (Bumex) 1 mg IVPUSH BID [facility] Last Admin: 08/28/19 08:06 Dose: 1 mg Dextrose/Water (Dextrose 50% In Water) 25 ml IVPUSH NOW STA Stop: 08/27/19 05:41 Last Admin: 08/27/19 05:47 Dose: 25 ml Enalaprilat (Vasotec Iv) 0.625 mg IVPUSH Q6H PRN PRN Reason: Hypertension Last Admin: 09/06/19 12:31 Dose: 0.625 mg Enalaprilat (Vasotec Iv) 1.25 mg IVPUSH Q6H [facility] Last Admin: 09/06/19 14:11 Dose: Not Given Enalaprilat (Vasotec Iv) 1.25 mg IVPUSH Q6H [facility] Enoxaparin Sodium (Lovenox) 70 mg SUBCUT Q24H [facility] Last Admin: 08/28/19 11:48 Dose: 70 mg Ephedrine Sulfate (Ephedrine In Ns) Confirm Administered Dose 25 mg .ROUTE .STK- MED ONE Stop: 08/24/19 21:32 Etomidate (Amidate) 40 mg IVPUSH .STK-MED ONE Stop: 08/24/19 15:01 Fentanyl (Sublimaze) Confirm Administered Dose 250 mcg .ROUTE .STK-MED ONE Stop: 08/24/19 18:10 Furosemide (Lasix) 60 mg IVPUSH NOW ONE Stop: 09/01/19 16:59 Last Admin: 09/01/19 17:15 Dose: 60 mg Furosemide (Lasix) 60 mg IVPUSH ONETIME ONE Stop: 09/02/19 00:01 Last Admin: 09/01/19 23:55 Dose: 60 mg Furosemide (Lasix) 40 mg IVPUSH NOW ONE Stop: 09/02/19 10:49 Last Admin: 09/02/19 11:59 Dose: 40 mg Furosemide (Lasix) 40 mg IVPUSH NOW ONE Stop: 09/02/19 18:19 Last Admin: 09/02/19 18:26 Dose: 40 mg Furosemide (Lasix) 40 mg IVPUSH BID [facility] Last Admin: 09/03/19 21:03 Dose: 40 mg Furosemide (Lasix) 20 mg IVPUSH DAILY [facility] Last Admin: 09/05/19 12:25 Dose: Not Given Heparin Sodium (Porcine) (Heparin Sodium) 5,000 units IVPUSH .BOLUS ONE Stop: 08/25/19 13:27 Last Admin: 08/25/19 14:11 Dose: 5,000 units Heparin Sodium (Porcine) (Heparin Lock Flush 100 Units/Ml) Confirm Administered Dose 500 units .ROUTE .STK-MED ONE Stop: 08/25/19 22:38 Last Admin: 08/25/19 23:02 Dose: 500 units Hydralazine HCl (Apresoline) 10 mg IVPUSH ONETIME ONE Stop: 08/29/19 07:47 Last Admin: 08/29/19 08:08 Dose: 10 mg Hydralazine HCl (Apresoline) 10 mg IVPUSH ONETIME ONE Stop: 08/30/19 11:55 Last Admin: 08/30/19 12:03 Dose: 10 mg Hydrocortisone Sodium Succinate (Solu-Cortef) 50 mg IV Q8H [facility] Last Admin: 08/29/19 12:21 Dose: 50 mg Hydromorphone HCl (Dilaudid) 0.5 mg IVPUSH ONETIME ONE Stop: 08/24/19 07:28 Last Admin: 08/24/19 08:15 Dose: 0.5 mg Sodium Chloride (Normal Saline) 1,000 mls @ 1,000 mls/hr IV .BOLUS STA Stop: 08/24/19 08:25 Last Admin: 08/24/19 08:13 Dose: 1,000 mls/hr Cefepime HCl 2 gm/ Premix 50 mls @ 100 mls/hr IV ONETIME ONE Stop: 08/24/19 13:18 Last Admin: 08/24/19 13:19 Dose: 100 mls/hr Lactated Ringer's (Ringers, Lactated) 1,100 mls @ 1,000 mls/hr IV .BOLUS ONE Stop: 08/24/19 14:13 Last Admin: 08/24/19 13:40 Dose: 1,000 mls/hr Levofloxacin/Dextrose 750 mg/ (Premix) 150 mls @ 100 mls/hr IV ONETIME ONE Stop: 08/24/19 15:07 Last Admin: 08/24/19 16:03 Dose: 100 mls/hr Piperacillin Sod/Tazobactam (Sod 4.5 gm/ Sodium Chloride) 100 mls @ 25 mls/hr IV Q8H [facility] Last Admin: 08/26/19 05:13 Dose: 25 mls/hr Vancomycin HCl 1 gm/ Sodium (Chloride) 250 mls @ 250 mls/hr IV ONETIME ONE Stop: 08/24/19 14:37 Last Admin: 08/24/19 16:06 Dose: 250 mls/hr Fentanyl 2,500 mcg/ Sodium (Chloride) 250 mls @ 7.27 mls/hr IV TITRATE [facility]; Protocol Last Titration: 08/28/19 04:23 Dose: 0 mcg/kg/hr, 0 mls/hr Midazolam HCl 50 mg/ Sodium (Chloride) 50 mls @ 0.5 mls/hr IV TITRATE [facility]; Protocol Stop: 08/25/19 15:29 Last Titration: 08/25/19 11:57 Dose: 2 mg/hr, 2 mls/hr Lactated Ringer's (Ringers, Lactated) 1,000 mls @ 125 mls/hr IV ASDIRECTED [facility] Last Admin: 08/25/19 01:00 Dose: 125 mls/hr Norepinephrine Bitartrate 4 mg (/ Dextrose/Water) 250 mls @ 7.5 mls/hr IV TITRATE [facility]; Protocol Last Titration: 08/27/19 07:25 Dose: 0 mcg/min, 0 mls/hr Sodium Chloride (Normal Saline) Confirm Administered Dose 1,000 mls @ as directed .ROUTE .STK-MED ONE Stop: 08/24/19 17:09 Last Admin: 08/24/19 17:16 Dose: 1 mls/hr Lactated Ringer's (Ringers, Lactated) Confirm Administered Dose 1,000 mls @ as directed .ROUTE .STK-MED ONE Stop: 08/24/19 18:34 Lactated Ringer's (Ringers, Lactated) Confirm Administered Dose 1,000 mls @ as directed .ROUTE .STK-MED ONE Stop: 08/24/19 19:10 Lactated Ringer's (Ringers, Lactated) Confirm Administered Dose 1,000 mls @ as directed .ROUTE .[facility] ONE Stop: 08/24/19 19:46 Lactated Ringer's (Ringers, Lactated) Confirm Administered Dose 1,000 mls @ as directed .ROUTE .[facility] ONE Stop: 08/24/19 20:40 Lactated Ringer's (Ringers, Lactated) 1,000 mls @ 250 mls/hr IV ASDIRECTED [facility] Last Infusion: 08/26/19 12:28 Dose: Infused Lactated Ringer's (Ringers, Lactated) 1,000 mls @ 999 mls/hr IV .BOLUS ONE Stop: 08/25/19 09:03 Last Admin: 08/25/19 08:10 Dose: 999 mls/hr Heparin Sodium/Dextrose (Heparin 25,000 Units In D5w 500 Ml) 25,000 units in 500 mls @ 26 mls/hr IV TITRATE [facility]; Protocol Last Admin: 08/26/19 08:24 Dose: 22 units/kg/hr, 32.013 mls/hr Dopamine HCl/Dextrose (Dopamine In D5w 400 Mg/250 Ml) 400 mg in 250 mls @ 5.457 mls/hr IV TITRATE [facility]; Protocol Last Titration: 08/26/19 15:20 Dose: 0 mcg/kg/min, 0 mls/hr Lactated Ringer's (Ringers, Lactated) 2,000 mls @ 999 mls/hr IV .BOLUS ONE Stop: 08/25/19 17:52 Last Admin: 08/25/19 16:11 Dose: 999 mls/hr Lactated Ringer's (Ringers, Lactated) 1,000 mls @ 999 mls/hr IV .BOLUS ONE Stop: 08/25/19 17:13 Last Admin: 08/25/19 16:48 Dose: 999 mls/hr Midazolam HCl 50 mg/ Sodium (Chloride) 50 mls @ 0.5 mls/hr IV TITRATE [facility]; Protocol Last Titration: 08/27/19 07:55 Dose: 0 mg/hr, 0 mls/hr Albumin Human (Flexbumin 25%) 25 gm in 100 mls @ 100 mls/hr IV Q1H [facility] Stop: 08/26/19 00:46 Last Admin: 08/26/19 00:07 Dose: 100 mls/hr Albumin Human (Flexbumin 25%) 12.5 gm in 50 mls @ 100 mls/hr IV Q8H [facility] Stop: 08/29/19 07:01 Last Admin: 08/29/19 05:59 Dose: 100 mls/hr Lactated Ringer's (Ringers, Lactated) 1,000 mls @ 200 mls/hr IV ASDIRECTED [facility] Last Infusion: 08/26/19 12:30 Dose: 100 mls/hr Magnesium Sulfate 4 gm/ Premix 100 mls @ 25 mls/hr IV ONETIME ONE Stop: 08/26/19 07:31 Last Admin: 08/26/19 06:48 Dose: 25 mls/hr Piperacillin Sod/Tazobactam (Sod 4.5 gm/ Sodium Chloride) 100 mls @ 25 mls/hr IV Q12H [facility] Stop: 08/29/19 10:00 Last Admin: 08/29/19 07:09 Dose: Not Given Lactated Ringer's (Ringers, Lactated) 1,000 mls @ 100 mls/hr IV ASDIRECTED [facility] Last Admin: 08/26/19 18:09 Dose: 100 mls/hr Dextrose/Water (Dextrose 10% In Water) 1,000 mls @ 25 mls/hr IV ASDIRECTED [facility] Dextrose/Water (Dextrose 10% In Water) 1,000 mls @ 25 mls/hr IV ASDIRECTED [facility] Last Admin: 08/27/19 05:52 Dose: 25 mls/hr Dextrose/Water (Dextrose 10% In Water) Confirm Administered Dose 1,000 mls @ as directed .ROUTE .STK-MED ONE Stop: 08/27/19 05:47 Last Admin: 08/27/19 05:56 Dose: Not Given Potassium Cl/Dextrose/Lact Ringer's (D5 Lr With 20 Meq Kcl) 1,000 mls @ 100 mls /hr IV ASDIRECTED [facility] Last Infusion: 08/28/19 11:57 Dose: 50 mls/hr Potassium Chloride 10 meq/ (Premix) 100 mls @ 100 mls/hr IV Q1H [facility] Stop: 08/27/19 12:59 Last Admin: 08/27/19 12:55 Dose: 100 mls/hr Potassium Chloride 10 meq/ (Premix) 100 mls @ 100 mls/hr IV Q1H [facility] Stop: 08/28/19 15:29 Last Admin: 08/28/19 15:11 Dose: 100 mls/hr Potassium Cl/Dextrose/Lact Ringer's (D5 Lr With 20 Meq Kcl) 1,000 mls @ 50 mls/ hr IV ASDIRECTED [facility] Last Admin: 08/30/19 18:01 Dose: 50 mls/hr Piperacillin Sod/Tazobactam (Sod 4.5 gm/ Sodium Chloride) 100 mls @ 25 mls/hr IV Q8H [facility] Last Admin: 09/03/19 07:04 Dose: 25 mls/hr Potassium Chloride 10 meq/ (Premix) 100 mls @ 100 mls/hr IV Q1H [facility] Stop: 08/29/19 17:59 Last Admin: 08/29/19 17:47 Dose: 100 mls/hr Magnesium Sulfate 2 gm/ Premix 50 mls @ 25 mls/hr IV 1200,2100 [facility] Stop: 08/29/19 22:59 Last Admin: 08/29/19 20:25 Dose: 25 mls/hr Sodium Chloride (Normal Saline) 1,000 mls @ 999 mls/hr IRR ONETIME ONE Stop: 08/29/19 13:07 Last Admin: 08/29/19 12:52 Dose: 999 mls/hr Argatroban 250 mg/ Sodium (Chloride) 252.5 mls @ 9.69 mls/hr IV TITRATE [facility]; Protocol Last Titration: 09/03/19 08:55 Dose: 0 mcg/kg/min, 0 mls/hr Sodium Chloride (Normal Saline) 100 mls @ 60 mls/hr IV ASDIRECTED [facility] Stop: 08/30/19 13:00 Potassium Chloride 10 meq/ (Premix) 100 mls @ 100 mls/hr IV Q1H [facility] Stop: 08/31/19 11:29 Last Admin: 08/31/19 11:42 Dose: 100 mls/hr Norepinephrine Bitartrate 4 mg (/ Dextrose/Water) 250 mls @ 7.5 mls/hr IV TITRATE [facility]; Protocol Dextrose/Water (Dextrose 5% In Water) Confirm Administered Dose 250 mls @ as directed .ROUTE .STK-MED ONE Stop: 09/01/19 15:54 Last Admin: 09/01/19 18:13 Dose: Not Given Dextrose/Water (Dextrose 5% In Water) 1,000 mls @ 50 mls/hr IV ASDIRECTED [facility] Last Infusion: 09/02/19 20:45 Dose: 25 mls/hr Sodium Chloride (Normal Saline) 100 mls @ 75 mls/hr IV ASDIRECTED [facility] Linezolid 600 mg/ Premix 300 mls @ 300 mls/hr IV Q12H [facility] Last Admin: 09/01/19 19:54 Dose: Not Given Linezolid 600 mg/ Premix 300 mls @ 300 mls/hr IV Q12H [facility] Last Admin: 09/03/19 12:01 Dose: Not Given Potassium Chloride 10 meq/ (Premix) 100 mls @ 100 mls/hr IV Q1H [facility] Stop: 09/03/19 12:14 Last Admin: 09/03/19 12:50 Dose: 100 mls/hr Dextrose/Water (Dextrose 5% In Water) 1,000 mls @ 50 mls/hr IV ASDIRECTED [facility] Last Admin: 09/03/19 11:07 Dose: 50 mls/hr Dextrose/Sodium Chloride (Dextrose 5%-1/2 Ns) 1,000 mls @ 50 mls/hr IV ASDIRECTED [facility] Last Admin: 09/06/19 06:19 Dose: 50 mls/hr Potassium Chloride 10 meq/ (Premix) 100 mls @ 100 mls/hr IV Q1H [facility] Stop: 09/04/19 11:59 Last Admin: 09/04/19 11:33 Dose: 100 mls/hr Potassium Chloride 10 meq/ (Premix) 100 mls @ 100 mls/hr IV Q1H [facility] Stop: 09/05/19 12:59 Last Admin: 09/05/19 12:24 Dose: 100 mls/hr Dextrose/Sodium Chloride (Dextrose 5%-1/2 Ns) 1,000 mls @ 50 mls/hr IV ASDIRECTED [facility] Last Admin: 09/07/19 01:28 Dose: 50 mls/hr Iopamidol (Isovue-370 (76%)) 100 ml IVPUSH ONETIME ONE Stop: 09/01/19 17:31 Last Admin: 09/01/19 17:31 Dose: 100 ml Levothyroxine Sodium (Synthroid) 75 mcg PO DAILY [facility] Morphine Sulfate (Morphine) 1 mg IVPUSH ONETIME ONE Stop: 08/29/19 07:47 Last Admin: 08/29/19 08:09 Dose: 1 mg Non-Formulary Medication (Losartan) 50 mg PO BEDTIME [facility] Norepinephrine Bitartrate (Levophed) Confirm Administered Dose 4 mg .ROUTE .STK- MED ONE Stop: 08/24/19 16:39 Last Admin: 08/24/19 16:47 Dose: Not Given Norepinephrine Bitartrate (Levophed) Confirm Administered Dose 4 mg .ROUTE .STK- MED ONE Stop: 09/01/19 15:54 Last Admin: 09/01/19 18:12 Dose: Not Given Ondansetron HCl (Zofran) 4 mg IVPUSH ONETIME ONE Stop: 08/24/19 07:27 Last Admin: 08/24/19 08:13 Dose: 4 mg Potassium Chloride (Klor-Con M20) 20 meq PO BID [facility] Last Admin: 09/01/19 08:51 Dose: 20 meq Potassium Chloride (Potassium Chloride Solution) 40 meq NGTUBE ONETIME ONE Stop: 09/01/19 12:01 Last Admin: 09/01/19 11:39 Dose: 40 meq Potassium Chloride (Potassium Chloride Solution) 20 meq NGTUBE BID [facility] Last Admin: 09/06/19 09:29 Dose: 20 meq Psyllium Husk (Metamucil Sugar Free) 1 packet PO BID [facility] Last Admin: 09/04/19 08:35 Dose: 1 packet Sodium Chloride (Saline Flush) 10 ml FLUSH ASDIRECTED PRN PRN Reason: Keep Vein Open Last Admin: 09/04/19 21:12 Dose: 10 ml Sodium Chloride (Saline Flush) 10 ml FLUSH ONETIME ONE Stop: 08/30/19 09:01 Last Admin: 08/30/19 09:09 Dose: 10 ml Succinylcholine Chloride (Quelicin) 200 mg .ROUTE .STK-MED ONE Stop: 08/24/19 15:01 Vecuronium Velpen (Vecuronium) Confirm Administered Dose 10 mg .ROUTE .STK-MED ONE Stop: 08/24/19 20:13 - Exam General: Other (Sleeping. Arousable.) HEENT: Pupils Equal, EOMI, Mucous Membr. Moist/Snelling Neck: Supple Lungs: Clear to Auscultation, Normal Respiratory Effort Cardiovascular: Regular Rate, Regular Rhythm GI/Abdominal Exam: Normal Bowel Sounds, Soft, Non-Tender, No Organomegaly, No Distention Back Exam: Normal Inspection, Full Range of Motion Extremities: Normal Inspection, Normal Range of Motion, Non-Tender, No Pedal Edema, Normal Capillary Refill Skin: Warm, Dry, Intact Wound/Incisions: Healing Well Psy/Mental Status: Alert, Normal Affect, Normal Mood Sepsis Event Note - Evaluation Sepsis Screening Result: No Definite Risk - Focused Exam Vital Signs: Vital Signs Temp Pulse Resp BP Pulse Ox Pulse Ox 09/08/19 13:16 98.1 F 94 24 H 142/48 H 93 L 09/08/19 09:00 20 09/08/19 08:36 92 L 09/08/19 07:40 98.8 F 94 24 H 153/51 H 90 L 09/08/19 04:07 95 93 L 09/08/19 04:06 99.0 F 96 20 152/55 H 91 L 09/08/19 03:11 92 L Date Exam was Performed: 09/08/19 Time Exam was Performed: 13:53 - Problem List Review Problem List Initiated/Reviewed/Updated: Yes - My Orders Last 24 Hours: My Active Orders 09/08/19 09:45 D5 1/2 NS w/ 20 mEq/L KCl 1,000 ml IV ASDIRECTED 09/08/19 10:39 Albuterol/Ipratropium [DuoNeb 3.0-0.5 MG/3 ML] 3 ml NEB Q6H PRN 09/08/19 12:42 Nrsg Assess Restraint Init/Mon [RC] Q1H 09/08/19 12:45 Initiate/Renew Non-Violent Restraints (All Ages) Q24H 09/09/19 05:11 CBC WITH AUTO DIFF [HEME] AM CMP [COMPREHENSIVE METABOLIC PN,CMP] [CHEM] AM MAGNESIUM [CHEM] AM - Plan Plan:: Acute respiratory failure with respiratory alkalosis-improved Patient's respiratory status is much improved. She is only on 1 L nasal cannula. White count is still elevated but decreasing lending the likelihood to stress. Follow-up CBC tomorrow. Afebrile. On 1 L nasal cannula. Not on antibiotics Blood cultures -negative Urine culture positive for yeast -likely colonization or asymptomatic and no need to treat. C. difficile screen negative Plan: 2 to monitor Congestive heart failure with reduced ejection fraction - exacerbation -improved Patient has had a significant improvement in her CHF exacerbation. Her oxygen requirements have gone down greatly and she is on 1 L nasal cannula. She back to her admission weight. Echocardiogram 09/02/2019 1. Left ventricular ejection fraction by visual estimation is 45 to 50%. 2. Global and mildly decreased left ventricular systolic function. 3. Normal right ventricular systolic function. 4. There is mild aortic valve sclerosis without stenosis. 5. Mild aortic valve regurgitation. 6. Mild mitral valve regurgitation. 7. Mild tricuspid valve regurgitation. 8. No vegetations identified. Plan -lisinopril 20 mg daily secondary to ease of crushing it and placing it down the Dobbhoff feeding tube. 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 Rucker Wound dehiscence Decreased oral intake and complaining of abdominal pain-->Abnormal CT --> surgery consulted--> R hemicolectomy and small bowel resection Central line, arterial line (removed 08/31/2019) and ETT placed (extubated 08/30) Started on norepinephrine with inadequate BP response--> started on dopamine which improved response (off both) CXR consistent with pulmonary edema on 09/01/2019 Patient had difficulty with tube feeds. Advancing NG tube feeds. On Reglan and Carafate PLAN -DC central line -Dobbhoff placed - RT f/u - NG tube feeds at 50 mL/h and increase slowly until goal of 65. Dr. Rucker managing. - Pain control with PRN morphine -Stopped argatroban and restart low-dose baby aspirin. -Nursing care for wound care. Heparin induced thrombocytopenia -ruled out Admission platelets 341, platelets back up above 100,000 since stopping heparin T score 6, highly likely Heparin-induced platelet antibody 0.114. Reference range: 0.000-0.0400. Acute kidney failure, improving Chronic kidney disease, stage 3 Hypokalemia secondary to diuresis -improved Lactic acid normal Creatinine stable at 1.3. PLAN - Monitor urine output - Renally dosed medications - Avoid nephrotoxic agents as much as possible -Lisinopril is easily crushed and placed down the Dobbhoff NG tube. -1 L D5 half-normal saline with 20 of K GERD (gastroesophageal reflux disease) No acute issues PLAN - Scheduled Pantoprazole Hypertension BP on admission stable Started dropping perioperatively requiring vasopressors Pressors off since 08/27 Worsening hypertension PLAN - lisinopril 20 mg per NG tube - chlorthalidone 25 mg - PRN Hydralazine Hypothyroidism No acute issues PLAN - Continue home meds [facility] dementia group home resident Sugar lift required Incontinent of bowel and bladder Hypothermia, resolved Septic shock, resolved Lactic acidosis, resolved Metabolic acidosis, resolved Respiratory alkalosis, resolved PROPHYLAXIS DVT- SCDs GI- pantoprazole CODE STATUS: FULL CODE DISPOSITION: Patient admitted to the ICU for vasopressors and mechanical ventilation. Taken to OR 08/24 with subsequent bowel resection. Patient's overall prognosis is very. Patient currently stable and awaiting placement. LTACH refused admission. Now trying to get patient SNF placement.
[2019-09-08] MEDS: Lisinopril 20 MG Tab PO SCH (22:06)
[2019-09-09] MEDS: Metoclopramide 10 MG/2 ML SDV IVPUSH SCH ×3 (02:06→16:22)
--- NOTE | 2019-09-09 07:12 | CR ---
Chest: Semi-upright view of the abdomen was obtained. Study includes the chest. Comparison: Prior chest x-ray 09/04/19. Feeding tube is seen. Tip lies within the region of the stomach. Slight interstitial change is seen within both lung bases most likely representing mild persisting atelectasis. Lungs otherwise are clear. Heart size appears within normal limits. Tortuous thoracic aorta is seen. Surgical clips are seen from prior cholecystectomy. Scoliosis is noted within the spine. Right sided jugular line noted on prior study which has been removed prior to current exam. Impression: 1. Tip of feeding tube within the area of the stomach. 2. Right jugular line has been removed when compared to prior exam. 3. Mild bibasilar interstitial change most likely representing slight atelectasis. Diagnostic code #2 This report was dictated in [place] Standard Time I agree with preliminary report issued by [facility] ([facility] report finalized on 09/07/19, 12:04 PM Central Time)
[2019-09-09] MEDS: Sucralfate Suspension 1 GM/10 ML Cup NGTUBE SCH ×2 (09:38→21:44)
[2019-09-09] MEDS: Chlorthalidone 25 MG Tab PO SCH (09:49)
[2019-09-09] MEDS: Potassium Chloride 10% 20 MEQ/15 ML Soln 15 ML UD Cup NGTUBE SCH (09:49)
[2019-09-09] MEDS: Aspirin 81 MG Tab.Chew PO SCH (09:50)
[2019-09-09] MEDS: Pantoprazole 40 MG Vial IVPUSH SCH (09:58)
[2019-09-09] MEDS ORDERED: Pantoprazole 40 MG Tab.CR PO SCH (10:42)
--- NOTE | 2019-09-09 12:06 | PCM.PN ---
- General Info Date of Service: 09/09/19 Admission Dx/Problem (Free Text): Decreased urine output Norepinephrine drip Fentanyl and versed for sedation LR for fluid repletion Levaquin, vancomycin and Zosyn Subjective Update: Patient had an uneventful night. Unfortunately she failed her swallow study yet again this morning. Nursing is concerned about continuation of nasogastric tube feeds and are questioning if we should be considering a PEG tube. Functional Status: Reports: Pain Controlled - Review of Systems General: Reports: No Symptoms HEENT: Reports: No Symptoms Pulmonary: Reports: No Symptoms Cardiovascular: Reports: No Symptoms Gastrointestinal: Reports: No Symptoms - Patient Data Vitals - Most Recent: Last Vital Signs Temp 98.1 F 09/09/19 04:31 Pulse 92 09/09/19 04:31 Resp 16 09/09/19 04:31 BP 139/96 H 09/09/19 04:31 Pulse Ox 94 L 09/09/19 08:10 Weight - Most Recent: 151 lb 1.6 oz I&O - Last 24 Hours: Intake & Output 09/08/19 09/09/19 09/09/19 22:59 06:59 14:59 Intake Total 640 919 Balance 640 919 Lab Results Last 24 Hours: Laboratory Results - last 24 hr 09/09/19 09/09/19 Range/Units 05:12 05:12 WBC 12.84 H (3.98-10.04) K/mm3 RBC 2.76 L (3.98-5.22) M/mm3 Hgb 7.7 L (11.2-15.7) gm/dl Hct 23.8 L (34.1-44.9) % MCV 86.2 (79.4-94.8) fl MCH 27.9 (25.6-32.2) pg MCHC 32.4 (32.2-35.5) g/dl RDW Std Deviation 74.4 H (36.4-46.3) fL Plt Count 492 H D (182-369) K/mm3 MPV 10.2 (9.4-12.3) fl Neut % (Auto) 66.4 (34.0-71.1) % Lymph % (Auto) 16.7 L (19.3-51.7) % Hyde % (Auto) 12.1 (4.7-12.5) % Eos % (Auto) 1.3 (0.7-5.8) Baso % (Auto) 0.7 (0.1-1.2) % Neut # (Auto) 8.53 H (1.56-6.13) K/mm3 Lymph # (Auto) 2.14 (1.18-3.74) K/mm3 Hyde # (Auto) 1.55 H (0.24-0.36) K/mm3 Eos # (Auto) 0.17 (0.04-0.36) K/mm3 Baso # (Auto) 0.09 H (0.01-0.08) K/mm3 Manual Slide Review Abnormal smear Sodium 139 (136-145) mEq/L Potassium 3.8 (3.5-5.1) mEq/L Chloride 107 (98-107) mEq/L Carbon Dioxide 20 L (21-32) mEq/L Anion Gap 15.8 H (5-15) BUN 21 H (7-18) mg/dL Creatinine 1.3 H (0.55-1.02) mg/dL Est Cr Clr Drug Dosing 26.16 mL/min Estimated GFR (MDRD) 39 (>60) mL/min BUN/Creatinine Ratio 16.2 (14-18) Glucose 101 (83-115) mg/dL Calcium 8.4 L (8.5-10.1) mg/dL Magnesium 2.1 (1.8-2.4) mg/dl Total Bilirubin 0.8 (0.2-1.0) mg/dL AST 28 (15-37) U/L ALT 15 (14-59) U/L Alkaline Phosphatase 94 (46-116) U/L Total Protein 5.9 L (6.4-8.2) g/dl Albumin 1.8 L (3.4-5.0) g/dl Globulin 4.1 gm/dL Albumin/Globulin Ratio 0.4 L (1-2) Gerardo Results Last 24 Hours: Microbiology 09/01/19 20:20 Aerobic Blood Culture - Final Blood - Venous - Lab Draw NO GROWTH AFTER 7 DAYS Anaerobic Blood Culture - Final NO GROWTH AFTER 7 DAYS 09/01/19 19:50 Aerobic Blood Culture - Final Blood - Venous NO GROWTH AFTER 7 DAYS Anaerobic Blood Culture - Final NO GROWTH AFTER 7 DAYS Med Orders - Current: Current Medications Albuterol/Ipratropium (Duoneb 3.0-0.5 Mg/3 Ml) 3 ml NEB Q6H PRN PRN Reason: Wheezing Aspirin (Aspirin) 81 mg PO DAILY [facility] Last Admin: 09/09/19 09:50 Dose: 81 mg Chlorthalidone (Chlorthalidone) 25 mg PO DAILY [facility] Last Admin: 09/09/19 09:49 Dose: 25 mg Hydralazine HCl (Apresoline) 10 mg IVPUSH Q2H PRN PRN Reason: Systolic >180 / Diastolic >100 Last Admin: 08/31/19 01:25 Dose: 10 mg Lisinopril (Prinivil) 20 mg PO BEDTIME [facility] Last Admin: 09/08/19 22:06 Dose: 20 mg Metoclopramide HCl (Reglan) 5 mg IVPUSH Q8H [facility] Last Admin: 09/09/19 09:58 Dose: 5 mg Morphine Sulfate (Morphine) 1 mg IVPUSH Q4H PRN PRN Reason: Pain Last Admin: 09/08/19 03:57 Dose: 1 mg Pantoprazole Sodium (Protonix) 40 mg PO DAILY [facility] Potassium Chloride (Potassium Chloride Solution) 20 meq NGTUBE DAILY [facility] Last Admin: 09/09/19 09:49 Dose: 20 meq Sodium Chloride (Saline Flush) 10 ml FLUSH ASDIRECTED PRN PRN Reason: Keep Vein Open Sucralfate (Carafate) 1 gm NGTUBE BID [facility] Last Admin: 09/09/19 09:38 Dose: 1 gm Discontinued Medications Albuterol/Ipratropium (Duoneb 3.0-0.5 Mg/3 Ml) 3 ml NEB Q6HRRT [facility] Last Admin: 09/08/19 08:34 Dose: 3 ml Amlodipine Besylate (Norvasc) 10 mg PO DAILY [facility] Last Admin: 09/05/19 09:23 Dose: 10 mg Atropine Sulfate (Atropine 0.1 Mg/Ml) 0.5 mg IVPUSH ONETIME ONE Stop: 08/27/19 07:57 Last Admin: 08/27/19 08:09 Dose: 0.5 mg Bumetanide (Bumex) 1 mg IVPUSH ONETIME ONE Stop: 08/25/19 22:49 Last Admin: 08/26/19 00:07 Dose: 1 mg Bumetanide (Bumex) 1 mg IVPUSH BID [facility] Last Admin: 08/28/19 08:06 Dose: 1 mg Dextrose/Water (Dextrose 50% In Water) 25 ml IVPUSH NOW STA Stop: 08/27/19 05:41 Last Admin: 08/27/19 05:47 Dose: 25 ml Enalaprilat (Vasotec Iv) 0.625 mg IVPUSH Q6H PRN PRN Reason: Hypertension Last Admin: 09/06/19 12:31 Dose: 0.625 mg Enalaprilat (Vasotec Iv) 1.25 mg IVPUSH Q6H [facility] Last Admin: 09/06/19 14:11 Dose: Not Given Enalaprilat (Vasotec Iv) 1.25 mg IVPUSH Q6H [facility] Enoxaparin Sodium (Lovenox) 70 mg SUBCUT Q24H [facility] Last Admin: 08/28/19 11:48 Dose: 70 mg Ephedrine Sulfate (Ephedrine In Ns) Confirm Administered Dose 25 mg .ROUTE .STK- MED ONE Stop: 08/24/19 21:32 Etomidate (Amidate) 40 mg IVPUSH .STK-MED ONE Stop: 08/24/19 15:01 Fentanyl (Sublimaze) Confirm Administered Dose 250 mcg .ROUTE .STK-MED ONE Stop: 08/24/19 18:10 Furosemide (Lasix) 60 mg IVPUSH NOW ONE Stop: 09/01/19 16:59 Last Admin: 09/01/19 17:15 Dose: 60 mg Furosemide (Lasix) 60 mg IVPUSH ONETIME ONE Stop: 09/02/19 00:01 Last Admin: 09/01/19 23:55 Dose: 60 mg Furosemide (Lasix) 40 mg IVPUSH NOW ONE Stop: 09/02/19 10:49 Last Admin: 09/02/19 11:59 Dose: 40 mg Furosemide (Lasix) 40 mg IVPUSH NOW ONE Stop: 09/02/19 18:19 Last Admin: 09/02/19 18:26 Dose: 40 mg Furosemide (Lasix) 40 mg IVPUSH BID [facility] Last Admin: 09/03/19 21:03 Dose: 40 mg Furosemide (Lasix) 20 mg IVPUSH DAILY [facility] Last Admin: 09/05/19 12:25 Dose: Not Given Heparin Sodium (Porcine) (Heparin Sodium) 5,000 units IVPUSH .BOLUS ONE Stop: 08/25/19 13:27 Last Admin: 08/25/19 14:11 Dose: 5,000 units Heparin Sodium (Porcine) (Heparin Lock Flush 100 Units/Ml) Confirm Administered Dose 500 units .ROUTE .STK-MED ONE Stop: 08/25/19 22:38 Last Admin: 08/25/19 23:02 Dose: 500 units Hydralazine HCl (Apresoline) 10 mg IVPUSH ONETIME ONE Stop: 08/29/19 07:47 Last Admin: 08/29/19 08:08 Dose: 10 mg Hydralazine HCl (Apresoline) 10 mg IVPUSH ONETIME ONE Stop: 08/30/19 11:55 Last Admin: 08/30/19 12:03 Dose: 10 mg Hydrocortisone Sodium Succinate (Solu-Cortef) 50 mg IV Q8H [facility] Last Admin: 08/29/19 12:21 Dose: 50 mg Hydromorphone HCl (Dilaudid) 0.5 mg IVPUSH ONETIME ONE Stop: 08/24/19 07:28 Last Admin: 08/24/19 08:15 Dose: 0.5 mg Sodium Chloride (Normal Saline) 1,000 mls @ 1,000 mls/hr IV .BOLUS STA Stop: 08/24/19 08:25 Last Admin: 08/24/19 08:13 Dose: 1,000 mls/hr Cefepime HCl 2 gm/ Premix 50 mls @ 100 mls/hr IV ONETIME ONE Stop: 08/24/19 13:18 Last Admin: 08/24/19 13:19 Dose: 100 mls/hr Lactated Ringer's (Ringers, Lactated) 1,100 mls @ 1,000 mls/hr IV .BOLUS ONE Stop: 08/24/19 14:13 Last Admin: 08/24/19 13:40 Dose: 1,000 mls/hr Levofloxacin/Dextrose 750 mg/ (Premix) 150 mls @ 100 mls/hr IV ONETIME ONE Stop: 08/24/19 15:07 Last Admin: 08/24/19 16:03 Dose: 100 mls/hr Piperacillin Sod/Tazobactam (Sod 4.5 gm/ Sodium Chloride) 100 mls @ 25 mls/hr IV Q8H [facility] Last Admin: 08/26/19 05:13 Dose: 25 mls/hr Vancomycin HCl 1 gm/ Sodium (Chloride) 250 mls @ 250 mls/hr IV ONETIME ONE Stop: 08/24/19 14:37 Last Admin: 08/24/19 16:06 Dose: 250 mls/hr Fentanyl 2,500 mcg/ Sodium (Chloride) 250 mls @ 7.27 mls/hr IV TITRATE [facility]; Protocol Last Titration: 08/28/19 04:23 Dose: 0 mcg/kg/hr, 0 mls/hr Midazolam HCl 50 mg/ Sodium (Chloride) 50 mls @ 0.5 mls/hr IV TITRATE [facility]; Protocol Stop: 08/25/19 15:29 Last Titration: 08/25/19 11:57 Dose: 2 mg/hr, 2 mls/hr Lactated Ringer's (Ringers, Lactated) 1,000 mls @ 125 mls/hr IV ASDIRECTED [facility] Last Admin: 08/25/19 01:00 Dose: 125 mls/hr Norepinephrine Bitartrate 4 mg (/ Dextrose/Water) 250 mls @ 7.5 mls/hr IV TITRATE [facility]; Protocol Last Titration: 08/27/19 07:25 Dose: 0 mcg/min, 0 mls/hr Sodium Chloride (Normal Saline) Confirm Administered Dose 1,000 mls @ as directed .ROUTE .STK-MED ONE Stop: 08/24/19 17:09 Last Admin: 08/24/19 17:16 Dose: 1 mls/hr Lactated Ringer's (Ringers, Lactated) Confirm Administered Dose 1,000 mls @ as directed .ROUTE .STK-MED ONE Stop: 08/24/19 18:34 Lactated Ringer's (Ringers, Lactated) Confirm Administered Dose 1,000 mls @ as directed .ROUTE .STK-MED ONE Stop: 08/24/19 19:10 Lactated Ringer's (Ringers, Lactated) Confirm Administered Dose 1,000 mls @ as directed .ROUTE .STK-MED ONE Stop: 08/24/19 19:46 Lactated Ringer's (Ringers, Lactated) Confirm Administered Dose 1,000 mls @ as directed .ROUTE .STK-MED ONE Stop: 08/24/19 20:40 Lactated Ringer's (Ringers, Lactated) 1,000 mls @ 250 mls/hr IV ASDIRECTED [facility] Last Infusion: 08/26/19 12:28 Dose: Infused Lactated Ringer's (Ringers, Lactated) 1,000 mls @ 999 mls/hr IV .BOLUS ONE Stop: 08/25/19 09:03 Last Admin: 08/25/19 08:10 Dose: 999 mls/hr Heparin Sodium/Dextrose (Heparin 25,000 Units In D5w 500 Ml) 25,000 units in 500 mls @ 26 mls/hr IV TITRATE [facility]; Protocol Last Admin: 08/26/19 08:24 Dose: 22 units/kg/hr, 32.013 mls/hr Dopamine HCl/Dextrose (Dopamine In D5w 400 Mg/250 Ml) 400 mg in 250 mls @ 5.457 mls/hr IV TITRATE [facility]; Protocol Last Titration: 08/26/19 15:20 Dose: 0 mcg/kg/min, 0 mls/hr Lactated Ringer's (Ringers, Lactated) 2,000 mls @ 999 mls/hr IV .BOLUS ONE Stop: 08/25/19 17:52 Last Admin: 08/25/19 16:11 Dose: 999 mls/hr Lactated Ringer's (Ringers, Lactated) 1,000 mls @ 999 mls/hr IV .BOLUS ONE Stop: 08/25/19 17:13 Last Admin: 08/25/19 16:48 Dose: 999 mls/hr Midazolam HCl 50 mg/ Sodium (Chloride) 50 mls @ 0.5 mls/hr IV TITRATE [facility]; Protocol Last Titration: 08/27/19 07:55 Dose: 0 mg/hr, 0 mls/hr Albumin Human (Flexbumin 25%) 25 gm in 100 mls @ 100 mls/hr IV Q1H [facility] Stop: 08/26/19 00:46 Last Admin: 08/26/19 00:07 Dose: 100 mls/hr Albumin Human (Flexbumin 25%) 12.5 gm in 50 mls @ 100 mls/hr IV Q8H [facility] Stop: 08/29/19 07:01 Last Admin: 08/29/19 05:59 Dose: 100 mls/hr Lactated Ringer's (Ringers, Lactated) 1,000 mls @ 200 mls/hr IV ASDIRECTED [facility] Last Infusion: 08/26/19 12:30 Dose: 100 mls/hr Magnesium Sulfate 4 gm/ Premix 100 mls @ 25 mls/hr IV ONETIME ONE Stop: 08/26/19 07:31 Last Admin: 08/26/19 06:48 Dose: 25 mls/hr Piperacillin Sod/Tazobactam (Sod 4.5 gm/ Sodium Chloride) 100 mls @ 25 mls/hr IV Q12H [facility] Stop: 08/29/19 10:00 Last Admin: 08/29/19 07:09 Dose: Not Given Lactated Ringer's (Ringers, Lactated) 1,000 mls @ 100 mls/hr IV ASDIRECTED [facility] Last Admin: 08/26/19 18:09 Dose: 100 mls/hr Dextrose/Water (Dextrose 10% In Water) 1,000 mls @ 25 mls/hr IV ASDIRECTED [facility] Dextrose/Water (Dextrose 10% In Water) 1,000 mls @ 25 mls/hr IV ASDIRECTED [facility] Last Admin: 08/27/19 05:52 Dose: 25 mls/hr Dextrose/Water (Dextrose 10% In Water) Confirm Administered Dose 1,000 mls @ as directed .ROUTE .STK-MED ONE Stop: 08/27/19 05:47 Last Admin: 08/27/19 05:56 Dose: Not Given Potassium Cl/Dextrose/Lact Ringer's (D5 Lr With 20 Meq Kcl) 1,000 mls @ 100 mls /hr IV ASDIRECTED [facility] Last Infusion: 08/28/19 11:57 Dose: 50 mls/hr Potassium Chloride 10 meq/ (Premix) 100 mls @ 100 mls/hr IV Q1H [facility] Stop: 08/27/19 12:59 Last Admin: 08/27/19 12:55 Dose: 100 mls/hr Potassium Chloride 10 meq/ (Premix) 100 mls @ 100 mls/hr IV Q1H [facility] Stop: 08/28/19 15:29 Last Admin: 08/28/19 15:11 Dose: 100 mls/hr Potassium Cl/Dextrose/Lact Ringer's (D5 Lr With 20 Meq Kcl) 1,000 mls @ 50 mls/ hr IV ASDIRECTED [facility] Last Admin: 08/30/19 18:01 Dose: 50 mls/hr Piperacillin Sod/Tazobactam (Sod 4.5 gm/ Sodium Chloride) 100 mls @ 25 mls/hr IV Q8H [facility] Last Admin: 09/03/19 07:04 Dose: 25 mls/hr Potassium Chloride 10 meq/ (Premix) 100 mls @ 100 mls/hr IV Q1H [facility] Stop: 08/29/19 17:59 Last Admin: 08/29/19 17:47 Dose: 100 mls/hr Magnesium Sulfate 2 gm/ Premix 50 mls @ 25 mls/hr IV 1200,2100 [facility] Stop: 08/29/19 22:59 Last Admin: 08/29/19 20:25 Dose: 25 mls/hr Sodium Chloride (Normal Saline) 1,000 mls @ 999 mls/hr IRR ONETIME ONE Stop: 08/29/19 13:07 Last Admin: 08/29/19 12:52 Dose: 999 mls/hr Argatroban 250 mg/ Sodium (Chloride) 252.5 mls @ 9.69 mls/hr IV TITRATE [facility]; Protocol Last Titration: 09/03/19 08:55 Dose: 0 mcg/kg/min, 0 mls/hr Sodium Chloride (Normal Saline) 100 mls @ 60 mls/hr IV ASDIRECTED [facility] Stop: 08/30/19 13:00 Potassium Chloride 10 meq/ (Premix) 100 mls @ 100 mls/hr IV Q1H [facility] Stop: 08/31/19 11:29 Last Admin: 08/31/19 11:42 Dose: 100 mls/hr Norepinephrine Bitartrate 4 mg (/ Dextrose/Water) 250 mls @ 7.5 mls/hr IV TITRATE [facility]; Protocol Dextrose/Water (Dextrose 5% In Water) Confirm Administered Dose 250 mls @ as directed .ROUTE .STK-MED ONE Stop: 09/01/19 15:54 Last Admin: 09/01/19 18:13 Dose: Not Given Dextrose/Water (Dextrose 5% In Water) 1,000 mls @ 50 mls/hr IV ASDIRECTED [facility] Last Infusion: 09/02/19 20:45 Dose: 25 mls/hr Sodium Chloride (Normal Saline) 100 mls @ 75 mls/hr IV ASDIRECTED [facility] Linezolid 600 mg/ Premix 300 mls @ 300 mls/hr IV Q12H [facility] Last Admin: 09/01/19 19:54 Dose: Not Given Linezolid 600 mg/ Premix 300 mls @ 300 mls/hr IV Q12H [facility] Last Admin: 09/03/19 12:01 Dose: Not Given Potassium Chloride 10 meq/ (Premix) 100 mls @ 100 mls/hr IV Q1H [facility] Stop: 09/03/19 12:14 Last Admin: 09/03/19 12:50 Dose: 100 mls/hr Dextrose/Water (Dextrose 5% In Water) 1,000 mls @ 50 mls/hr IV ASDIRECTED [facility] Last Admin: 09/03/19 11:07 Dose: 50 mls/hr Dextrose/Sodium Chloride (Dextrose 5%-1/2 Ns) 1,000 mls @ 50 mls/hr IV ASDIRECTED [facility] Last Admin: 09/06/19 06:19 Dose: 50 mls/hr Potassium Chloride 10 meq/ (Premix) 100 mls @ 100 mls/hr IV Q1H [facility] Stop: 09/04/19 11:59 Last Admin: 09/04/19 11:33 Dose: 100 mls/hr Potassium Chloride 10 meq/ (Premix) 100 mls @ 100 mls/hr IV Q1H [facility] Stop: 09/05/19 12:59 Last Admin: 09/05/19 12:24 Dose: 100 mls/hr Dextrose/Sodium Chloride (Dextrose 5%-1/2 Ns) 1,000 mls @ 50 mls/hr IV ASDIRECTED [facility] Last Admin: 09/07/19 01:28 Dose: 50 mls/hr Potassium Chloride/Dextrose/Sod Cl (D5 1/2 Ns W/ 20 Meq/L Kcl) 1,000 mls @ 75 mls/hr IV ASDIRECTED [facility] Stop: 09/08/19 23:04 Last Admin: 09/08/19 11:54 Dose: 75 mls/hr Iopamidol (Isovue-370 (76%)) 100 ml IVPUSH ONETIME ONE Stop: 09/01/19 17:31 Last Admin: 09/01/19 17:31 Dose: 100 ml Levothyroxine Sodium (Synthroid) 75 mcg PO DAILY [facility] Morphine Sulfate (Morphine) 1 mg IVPUSH ONETIME ONE Stop: 08/29/19 07:47 Last Admin: 08/29/19 08:09 Dose: 1 mg Non-Formulary Medication (Losartan) 50 mg PO BEDTIME [facility] Norepinephrine Bitartrate (Levophed) Confirm Administered Dose 4 mg .ROUTE .STK- MED ONE Stop: 08/24/19 16:39 Last Admin: 08/24/19 16:47 Dose: Not Given Norepinephrine Bitartrate (Levophed) Confirm Administered Dose 4 mg .ROUTE .STK- MED ONE Stop: 09/01/19 15:54 Last Admin: 09/01/19 18:12 Dose: Not Given Ondansetron HCl (Zofran) 4 mg IVPUSH ONETIME ONE Stop: 08/24/19 07:27 Last Admin: 08/24/19 08:13 Dose: 4 mg Pantoprazole Sodium (Protonix Iv) 40 mg IVPUSH DAILY [facility] Last Admin: 09/09/19 09:58 Dose: 40 mg Potassium Chloride (Klor-Con M20) 20 meq PO BID [facility] Last Admin: 09/01/19 08:51 Dose: 20 meq Potassium Chloride (Potassium Chloride Solution) 40 meq NGTUBE ONETIME ONE Stop: 09/01/19 12:01 Last Admin: 09/01/19 11:39 Dose: 40 meq Potassium Chloride (Potassium Chloride Solution) 20 meq NGTUBE BID [facility] Last Admin: 09/06/19 09:29 Dose: 20 meq Psyllium Husk (Metamucil Sugar Free) 1 packet PO BID [facility] Last Admin: 09/04/19 08:35 Dose: 1 packet Sodium Chloride (Saline Flush) 10 ml FLUSH ASDIRECTED PRN PRN Reason: Keep Vein Open Last Admin: 09/04/19 21:12 Dose: 10 ml Sodium Chloride (Saline Flush) 10 ml FLUSH ONETIME ONE Stop: 08/30/19 09:01 Last Admin: 08/30/19 09:09 Dose: 10 ml Succinylcholine Chloride (Quelicin) 200 mg .ROUTE .STK-MED ONE Stop: 08/24/19 15:01 Vecuronium [place] (Vecuronium) Confirm Administered Dose 10 mg .ROUTE .STK-MED ONE Stop: 08/24/19 20:13 - Exam Quality Assessment: Supplemental Oxygen General: Lethargic HEENT: Pupils Equal, EOMI, Mucous Membr. Moist/[place] Neck: Supple Lungs: Normal Respiratory Effort, Rales Cardiovascular: Regular Rate, Regular Rhythm GI/Abdominal Exam: Normal Bowel Sounds, Soft, Non-Tender, No Organomegaly, No Distention, No Abnormal Bruit, No Mass, Pelvis Stable Back Exam: Normal Inspection Extremities: Normal Inspection, Normal Range of Motion, Non-Tender, No Pedal Edema Skin: Warm, Dry, Intact Sepsis Event Note - Evaluation Sepsis Screening Result: No Definite Risk - Focused Exam Vital Signs: Vital Signs Temp Pulse Resp BP Pulse Ox Pulse Ox 09/09/19 08:10 94 L 09/09/19 04:31 98.1 F 92 16 139/96 H 95 Date Exam was Performed: 09/09/19 Time Exam was Performed: 11:58 - Problem List Review Problem List Initiated/Reviewed/Updated: Yes - My Orders Last 24 Hours: My Active Orders 09/08/19 12:42 Nrsg Assess Restraint Init/Mon [RC] Q2HR 09/08/19 12:45 Initiate/Renew Non-Violent Restraints (All Ages) Q24H 09/08/19 18:31 Up to Chair [RC] ASDIRECTED - Plan Plan:: Sepsis 2/2 UTI/aspiration/Necrotic bowel 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 Rucker Wound dehiscence Decreased oral intake and complaining of abdominal pain-->Abnormal CT --> surgery consulted--> R hemicolectomy and small bowel resection Central line, arterial line (removed 08/31/2019) and ETT placed (extubated 08/30) Started on norepinephrine with inadequate BP response--> started on dopamine which improved response (off both) CXR consistent with pulmonary edema on 09/01/2019 Patient had difficulty with tube feeds. Advancing NG tube feeds. On Reglan and Carafate PLAN -NG tube feedings are going slowly. When we increase them to 65 mL/h she develops pain. - RT f/u - NG tube feeds at 40 mL/h. Dr. Rucker managing. - Pain control with PRN morphine - low-dose baby aspirin. -Nursing care for wound care. Acute respiratory failure - resolved Patient's respiratory status is much improved. She is only on 1-2 L nasal cannula. White count is still elevated but decreasing. Afebrile. On 1-2 L nasal cannula. Blood cultures -negative Urine culture positive for yeast -likely colonization or asymptomatic and no need to treat. C. difficile screen negative Congestive heart failure with reduced ejection fraction Patient has had a significant improvement in her CHF exacerbation. Her oxygen requirements have gone down greatly and she is on 1-2 L nasal cannula. She back to her admission weight. Echocardiogram 09/02/2019 1. Left ventricular ejection fraction by visual estimation is 45 to 50%. 2. Global and mildly decreased left ventricular systolic function. 3. Normal right ventricular systolic function. 4. There is mild aortic valve sclerosis without stenosis. 5. Mild aortic valve regurgitation. 6. Mild mitral valve regurgitation. 7. Mild tricuspid valve regurgitation. 8. No vegetations identified. Plan -lisinopril 20 mg daily secondary to ease of crushing it and placing it down the Dobbhoff feeding tube. -Stop IV enalapril Heparin induced thrombocytopenia -ruled out Admission platelets 341, platelets back up above 100,000 since stopping heparin T score 6, highly likely Heparin-induced platelet antibody 0.114. Reference range: 0.000-0.0400. Acute kidney failure, improving Chronic kidney disease, stage 3 Hypokalemia secondary to diuresis -improved Lactic acid normal Creatinine stable at 1.3. PLAN - Monitor urine output - Renally dosed medications - Avoid nephrotoxic agents as much as possible - Lisinopril is easily crushed and placed down the NG tube. GERD (gastroesophageal reflux disease) No acute issues PLAN - Scheduled Pantoprazole Hypertension BP on admission stable Started dropping perioperatively requiring vasopressors Pressors off since 08/27 Worsening hypertension PLAN - lisinopril 20 mg per NG tube - chlorthalidone 25 mg - PRN Hydralazine Hypothyroidism No acute issues PLAN - Continue home meds Vascular dementia alf resident Sugar lift required Incontinent of bowel and bladder Hypothermia, resolved Septic shock, resolved Lactic acidosis, resolved Metabolic acidosis, resolved Respiratory alkalosis, resolved PROPHYLAXIS DVT- SCDs GI- pantoprazole CODE STATUS: FULL CODE DISPOSITION: Patient admitted to the ICU for vasopressors and mechanical ventilation. Taken to OR 08/24 with subsequent bowel resection. Patient's overall prognosis is very. Patient currently stable and awaiting placement. LTACH refused admission. Now trying to get patient SNF placement.
[2019-09-09] MEDS: Morphine 2 MG/ML Syringe IVPUSH PRN (21:50)
[2019-09-09] MEDS: Lisinopril 20 MG Tab PO SCH (21:50)
[2019-09-10] MEDS: Metoclopramide 10 MG/2 ML SDV IVPUSH SCH ×2 (00:01→09:11)
[2019-09-10] MEDS ORDERED: Acetaminophen 325 MG Tab PO PRN ×2 (07:46→07:58)
[2019-09-10] MEDS ORDERED: Acetaminophen 325 MG Tab NGTUBE PRN (08:03)
[2019-09-10] MEDS ORDERED: Lisinopril 20 MG Tab NGTUBE SCH (08:04)
[2019-09-10] MEDS ORDERED: Chlorthalidone 25 MG Tab NGTUBE SCH (08:04)
[2019-09-10] MEDS ORDERED: Aspirin 81 MG Tab.Chew NGTUBE SCH (08:05)
[2019-09-10] MEDS: Morphine 2 MG/ML Syringe IVPUSH PRN ×3 (09:11→12:24)
[2019-09-10 12:22] VITALS: BP 143/36; PULSE 84
--- NOTE | 2019-09-10 17:35 | PCM.DCSUM1 ---
Discharge Summary - Hospital Course HPI Initial Comments: [facility] ED documentation "The patient presents with abdominal pain, nausea and vomiting. This has been going on since early this morning. She also has a low grade temp of 99. She has no cough, congestion, runny nose, chest pain or shortness of breath. The patient still has her gallbladder and appendix. She has no history of bowel obstruction. She did have a large bowel movement this morning. Diagnosis: Stroke: No - Discharge Data Discharge Date: 09/10/19 Discharge Disposition: DC/Tfer to [facility] 62 Condition: Fair - Referral to Home Health Primary Care Physician: Jayme Marion MD - Patient Summary/Data Consults: Consultations 08/24/19 16:17 Consult to Case Management/Machine Scallop Cutter [CONS] Routine Consult to Coremaker [CONS] Routine OT Evaluation and Treatment [CONS] Routine PT Evaluation and Treatment [CONS] Routine 09/02/19 07:00 Consult to Speech Language Pathology [SERVICENOW ADMINISTRATOR DEVELOPER Evaluation and Treatment] [CONS] Routine 09/07/19 01:07 SERVICENOW ADMINISTRATOR DEVELOPER Evaluation and Treatment [CONS] Routine Hospital Course: She was found to have necrotic small bowel requiring distal small bowel resection, right hemicolectomy with ileorectal anastomosis. Patient was unable to be extubated after surgery. She remained intubated for 5 days. She also required vasopressors. Patient slowly improved and was extubated to BiPAP. Over the next several days she slowly recovered. Unfortunately, tube feeds were difficult to advance and on day 16 of hospitalization discussion with family about putting in a PEG tube led to the family considering comfort care. On day 17 family felt that she would not want to be kept on tube feeds for extended period time and that she would also not want resuscitation. Son and daughter were in agreement that her wishes would be to have care withdrawn and moved to comfort care only. They felt this was consistent with her wishes previous to developing severe dementia. Patient was made comfort care, had the NG tube removed, and discharged back to [facility]. - Patient Instructions Diet: NPO Activity: Bedrest - Discharge Plan *PRESCRIPTION DRUG MONITORING PROGRAM REVIEWED*: No *COPY OF PRESCRIPTION DRUG MONITORING REPORT IN PATIENT KAREN: No Prescriptions/Med Rec: Acetaminophen [Tylenol] 650 mg RECTAL Q4H PRN #30 supp PRN Reason: Fever LORazepam [Ativan] 2 mg PO Q4H PRN #30 ml PRN Reason: Anxiety Morphine [Morphine 20 MG/ML Soln] 5 mg PO Q4H PRN #1 bottle PRN Reason: Pain Home Medications: Home Meds Acetaminophen [Tylenol] 650 mg RECTAL Q4H PRN #30 supp 09/10/19 [Rx] LORazepam [Ativan] 2 mg PO Q4H PRN #30 ml 09/10/19 [Rx] Morphine [Morphine 20 MG/ML Soln] 5 mg PO Q4H PRN #1 bottle 09/10/19 [Rx] Patient Handouts: Open Small Bowel Resection, Care After, Sepsis, Adult, Urinary Tract Infection, Adult, Aspiration Pneumonia Forms: ED Department Discharge Referrals: Jayme Marion MD [Primary Care Provider] - (Follow-up with primary care provider as needed. ) - Discharge Summary/Plan Comment DC Time >30 min.: Yes Discharge Summary/Plan Comment: After decision was made to make the patient comfortable and withdraw care she was transferred back to [facility]. - General Info Date of Service: 09/10/19 Admission Dx/Problem (Free Text: Decreased urine output Norepinephrine drip Fentanyl and versed for sedation LR for fluid repletion Levaquin, vancomycin and Zosyn Subjective Update: Patient is hard to arouse today. - Patient Data Vitals - Most Recent: Last Vital Signs Temp 99.0 F 09/10/19 12:18 Pulse 84 09/10/19 12:18 Resp 20 09/10/19 12:18 BP 143/36 H 09/10/19 12:18 Pulse Ox 93 L 09/10/19 12:18 Weight - Most Recent: 146 lb 4.8 oz I&O - Last 24 hours: Intake & Output 09/10/19 09/10/19 09/10/19 06:59 14:59 22:59 Intake Total 305 Balance 305 Med Orders - Current: Current Medications Discontinued Medications Acetaminophen (Tylenol) 650 mg PO Q4H PRN PRN Reason: Pain/Fever Acetaminophen (Tylenol) 650 mg PO Q4H PRN PRN Reason: Pain Acetaminophen (Tylenol) 650 mg NGTUBE Q4H PRN PRN Reason: Pain Albuterol/Ipratropium (Duoneb 3.0-0.5 Mg/3 Ml) 3 ml NEB Q6HRRT [facility] Last Admin: 09/08/19 08:34 Dose: 3 ml Albuterol/Ipratropium (Duoneb 3.0-0.5 Mg/3 Ml) 3 ml NEB Q6H PRN PRN Reason: Wheezing Amlodipine Besylate (Norvasc) 10 mg PO DAILY [facility] Last Admin: 09/05/19 09:23 Dose: 10 mg Aspirin (Aspirin) 81 mg PO DAILY [facility] Last Admin: 09/09/19 09:50 Dose: 81 mg Aspirin (Aspirin) 81 mg NGTUBE DAILY [facility] Atropine Sulfate (Atropine 0.1 Mg/Ml) 0.5 mg IVPUSH ONETIME ONE Stop: 08/27/19 07:57 Last Admin: 08/27/19 08:09 Dose: 0.5 mg Bumetanide (Bumex) 1 mg IVPUSH ONETIME ONE Stop: 08/25/19 22:49 Last Admin: 08/26/19 00:07 Dose: 1 mg Bumetanide (Bumex) 1 mg IVPUSH BID [facility] Last Admin: 08/28/19 08:06 Dose: 1 mg Chlorthalidone (Chlorthalidone) 25 mg PO DAILY [facility] Last Admin: 09/09/19 09:49 Dose: 25 mg Chlorthalidone (Chlorthalidone) 25 mg NGTUBE DAILY [facility] Dextrose/Water (Dextrose 50% In Water) 25 ml IVPUSH NOW STA Stop: 08/27/19 05:41 Last Admin: 08/27/19 05:47 Dose: 25 ml Enalaprilat (Vasotec Iv) 0.625 mg IVPUSH Q6H PRN PRN Reason: Hypertension Last Admin: 09/06/19 12:31 Dose: 0.625 mg Enalaprilat (Vasotec Iv) 1.25 mg IVPUSH Q6H [facility] Last Admin: 09/06/19 14:11 Dose: Not Given Enalaprilat (Vasotec Iv) 1.25 mg IVPUSH Q6H [facility] Enoxaparin Sodium (Lovenox) 70 mg SUBCUT Q24H [facility] Last Admin: 08/28/19 11:48 Dose: 70 mg Ephedrine Sulfate (Ephedrine In Ns) Confirm Administered Dose 25 mg .ROUTE .STK- MED ONE Stop: 08/24/19 21:32 Etomidate (Amidate) 40 mg IVPUSH .STK-MED ONE Stop: 08/24/19 15:01 Fentanyl (Sublimaze) Confirm Administered Dose 250 mcg .ROUTE .STK-MED ONE Stop: 08/24/19 18:10 Furosemide (Lasix) 60 mg IVPUSH NOW ONE Stop: 09/01/19 16:59 Last Admin: 09/01/19 17:15 Dose: 60 mg Furosemide (Lasix) 60 mg IVPUSH ONETIME ONE Stop: 09/02/19 00:01 Last Admin: 09/01/19 23:55 Dose: 60 mg Furosemide (Lasix) 40 mg IVPUSH NOW ONE Stop: 09/02/19 10:49 Last Admin: 09/02/19 11:59 Dose: 40 mg Furosemide (Lasix) 40 mg IVPUSH NOW ONE Stop: 09/02/19 18:19 Last Admin: 09/02/19 18:26 Dose: 40 mg Furosemide (Lasix) 40 mg IVPUSH BID [facility] Last Admin: 09/03/19 21:03 Dose: 40 mg Furosemide (Lasix) 20 mg IVPUSH DAILY [facility] Last Admin: 09/05/19 12:25 Dose: Not Given Heparin Sodium (Porcine) (Heparin Sodium) 5,000 units IVPUSH .BOLUS ONE Stop: 08/25/19 13:27 Last Admin: 08/25/19 14:11 Dose: 5,000 units Heparin Sodium (Porcine) (Heparin Lock Flush 100 Units/Ml) Confirm Administered Dose 500 units .ROUTE .STK-MED ONE Stop: 08/25/19 22:38 Last Admin: 08/25/19 23:02 Dose: 500 units Hydralazine HCl (Apresoline) 10 mg IVPUSH ONETIME ONE Stop: 08/29/19 07:47 Last Admin: 08/29/19 08:08 Dose: 10 mg Hydralazine HCl (Apresoline) 10 mg IVPUSH ONETIME ONE Stop: 08/30/19 11:55 Last Admin: 08/30/19 12:03 Dose: 10 mg Hydralazine HCl (Apresoline) 10 mg IVPUSH Q2H PRN PRN Reason: Systolic >180 / Diastolic >100 Last Admin: 08/31/19 01:25 Dose: 10 mg Hydrocortisone Sodium Succinate (Solu-Cortef) 50 mg IV Q8H [facility] Last Admin: 08/29/19 12:21 Dose: 50 mg Hydromorphone HCl (Dilaudid) 0.5 mg IVPUSH ONETIME ONE Stop: 08/24/19 07:28 Last Admin: 08/24/19 08:15 Dose: 0.5 mg Sodium Chloride (Normal Saline) 1,000 mls @ 1,000 mls/hr IV .BOLUS STA Stop: 08/24/19 08:25 Last Admin: 08/24/19 08:13 Dose: 1,000 mls/hr Cefepime HCl 2 gm/ Premix 50 mls @ 100 mls/hr IV ONETIME ONE Stop: 08/24/19 13:18 Last Admin: 08/24/19 13:19 Dose: 100 mls/hr Lactated Ringer's (Ringers, Lactated) 1,100 mls @ 1,000 mls/hr IV .BOLUS ONE Stop: 08/24/19 14:13 Last Admin: 08/24/19 13:40 Dose: 1,000 mls/hr Levofloxacin/Dextrose 750 mg/ (Premix) 150 mls @ 100 mls/hr IV ONETIME ONE Stop: 08/24/19 15:07 Last Admin: 08/24/19 16:03 Dose: 100 mls/hr Piperacillin Sod/Tazobactam (Sod 4.5 gm/ Sodium Chloride) 100 mls @ 25 mls/hr IV Q8H [facility] Last Admin: 08/26/19 05:13 Dose: 25 mls/hr Vancomycin HCl 1 gm/ Sodium (Chloride) 250 mls @ 250 mls/hr IV ONETIME ONE Stop: 08/24/19 14:37 Last Admin: 08/24/19 16:06 Dose: 250 mls/hr Fentanyl 2,500 mcg/ Sodium (Chloride) 250 mls @ 7.27 mls/hr IV TITRATE [facility]; Protocol Last Titration: 08/28/19 04:23 Dose: 0 mcg/kg/hr, 0 mls/hr Midazolam HCl 50 mg/ Sodium (Chloride) 50 mls @ 0.5 mls/hr IV TITRATE [facility]; Protocol Stop: 08/25/19 15:29 Last Titration: 08/25/19 11:57 Dose: 2 mg/hr, 2 mls/hr Lactated Ringer's (Ringers, Lactated) 1,000 mls @ 125 mls/hr IV ASDIRECTED [facility] Last Admin: 08/25/19 01:00 Dose: 125 mls/hr Norepinephrine Bitartrate 4 mg (/ Dextrose/Water) 250 mls @ 7.5 mls/hr IV TITRATE [facility]; Protocol Last Titration: 08/27/19 07:25 Dose: 0 mcg/min, 0 mls/hr Sodium Chloride (Normal Saline) Confirm Administered Dose 1,000 mls @ as directed .ROUTE .STK-MED ONE Stop: 08/24/19 17:09 Last Admin: 08/24/19 17:16 Dose: 1 mls/hr Lactated Ringer's (Ringers, Lactated) Confirm Administered Dose 1,000 mls @ as directed .ROUTE .K-MED ONE Stop: 08/24/19 18:34 Lactated Ringer's (Ringers, Lactated) Confirm Administered Dose 1,000 mls @ as directed .ROUTE .[facility]-MED ONE Stop: 08/24/19 19:10 Lactated Ringer's (Ringers, Lactated) Confirm Administered Dose 1,000 mls @ as directed .ROUTE .[facility]-MED ONE Stop: 08/24/19 19:46 Lactated Ringer's (Ringers, Lactated) Confirm Administered Dose 1,000 mls @ as directed .ROUTE .STK-MED ONE Stop: 08/24/19 20:40 Lactated Ringer's (Ringers, Lactated) 1,000 mls @ 250 mls/hr IV ASDIRECTED [facility] Last Infusion: 08/26/19 12:28 Dose: Infused Lactated Ringer's (Ringers, Lactated) 1,000 mls @ 999 mls/hr IV .BOLUS ONE Stop: 08/25/19 09:03 Last Admin: 08/25/19 08:10 Dose: 999 mls/hr Heparin Sodium/Dextrose (Heparin 25,000 Units In D5w 500 Ml) 25,000 units in 500 mls @ 26 mls/hr IV TITRATE [facility]; Protocol Last Admin: 08/26/19 08:24 Dose: 22 units/kg/hr, 32.013 mls/hr Dopamine HCl/Dextrose (Dopamine In D5w 400 Mg/250 Ml) 400 mg in 250 mls @ 5.457 mls/hr IV TITRATE [facility]; Protocol Last Titration: 08/26/19 15:20 Dose: 0 mcg/kg/min, 0 mls/hr Lactated Ringer's (Ringers, Lactated) 2,000 mls @ 999 mls/hr IV .BOLUS ONE Stop: 08/25/19 17:52 Last Admin: 08/25/19 16:11 Dose: 999 mls/hr Lactated Ringer's (Ringers, Lactated) 1,000 mls @ 999 mls/hr IV .BOLUS ONE Stop: 08/25/19 17:13 Last Admin: 08/25/19 16:48 Dose: 999 mls/hr Midazolam HCl 50 mg/ Sodium (Chloride) 50 mls @ 0.5 mls/hr IV TITRATE [facility]; Protocol Last Titration: 08/27/19 07:55 Dose: 0 mg/hr, 0 mls/hr Albumin Human (Flexbumin 25%) 25 gm in 100 mls @ 100 mls/hr IV Q1H [facility] Stop: 08/26/19 00:46 Last Admin: 08/26/19 00:07 Dose: 100 mls/hr Albumin Human (Flexbumin 25%) 12.5 gm in 50 mls @ 100 mls/hr IV Q8H [facility] Stop: 08/29/19 07:01 Last Admin: 08/29/19 05:59 Dose: 100 mls/hr Lactated Ringer's (Ringers, Lactated) 1,000 mls @ 200 mls/hr IV ASDIRECTED [facility] Last Infusion: 08/26/19 12:30 Dose: 100 mls/hr Magnesium Sulfate 4 gm/ Premix 100 mls @ 25 mls/hr IV ONETIME ONE Stop: 08/26/19 07:31 Last Admin: 08/26/19 06:48 Dose: 25 mls/hr Piperacillin Sod/Tazobactam (Sod 4.5 gm/ Sodium Chloride) 100 mls @ 25 mls/hr IV Q12H [facility] Stop: 08/29/19 10:00 Last Admin: 08/29/19 07:09 Dose: Not Given Lactated Ringer's (Ringers, Lactated) 1,000 mls @ 100 mls/hr IV ASDIRECTED [facility] Last Admin: 08/26/19 18:09 Dose: 100 mls/hr Dextrose/Water (Dextrose 10% In Water) 1,000 mls @ 25 mls/hr IV ASDIRECTED [facility] Dextrose/Water (Dextrose 10% In Water) 1,000 mls @ 25 mls/hr IV ASDIRECTED [facility] Last Admin: 08/27/19 05:52 Dose: 25 mls/hr Dextrose/Water (Dextrose 10% In Water) Confirm Administered Dose 1,000 mls @ as directed .ROUTE .STK-MED ONE Stop: 08/27/19 05:47 Last Admin: 08/27/19 05:56 Dose: Not Given Potassium Cl/Dextrose/Lact Ringer's (D5 Lr With 20 Meq Kcl) 1,000 mls @ 100 mls /hr IV ASDIRECTED [facility] Last Infusion: 08/28/19 11:57 Dose: 50 mls/hr Potassium Chloride 10 meq/ (Premix) 100 mls @ 100 mls/hr IV Q1H [facility] Stop: 08/27/19 12:59 Last Admin: 08/27/19 12:55 Dose: 100 mls/hr Potassium Chloride 10 meq/ (Premix) 100 mls @ 100 mls/hr IV Q1H [facility] Stop: 08/28/19 15:29 Last Admin: 08/28/19 15:11 Dose: 100 mls/hr Potassium Cl/Dextrose/Lact Ringer's (D5 Lr With 20 Meq Kcl) 1,000 mls @ 50 mls/ hr IV ASDIRECTED [facility] Last Admin: 08/30/19 18:01 Dose: 50 mls/hr Piperacillin Sod/Tazobactam (Sod 4.5 gm/ Sodium Chloride) 100 mls @ 25 mls/hr IV Q8H [facility] Last Admin: 09/03/19 07:04 Dose: 25 mls/hr Potassium Chloride 10 meq/ (Premix) 100 mls @ 100 mls/hr IV Q1H [facility] Stop: 08/29/19 17:59 Last Admin: 08/29/19 17:47 Dose: 100 mls/hr Magnesium Sulfate 2 gm/ Premix 50 mls @ 25 mls/hr IV 1200,2100 [facility] Stop: 08/29/19 22:59 Last Admin: 08/29/19 20:25 Dose: 25 mls/hr Sodium Chloride (Normal Saline) 1,000 mls @ 999 mls/hr IRR ONETIME ONE Stop: 08/29/19 13:07 Last Admin: 08/29/19 12:52 Dose: 999 mls/hr Argatroban 250 mg/ Sodium (Chloride) 252.5 mls @ 9.69 mls/hr IV TITRATE [facility]; Protocol Last Titration: 09/03/19 08:55 Dose: 0 mcg/kg/min, 0 mls/hr Sodium Chloride (Normal Saline) 100 mls @ 60 mls/hr IV ASDIRECTED [facility] Stop: 08/30/19 13:00 Potassium Chloride 10 meq/ (Premix) 100 mls @ 100 mls/hr IV Q1H [facility] Stop: 08/31/19 11:29 Last Admin: 08/31/19 11:42 Dose: 100 mls/hr Norepinephrine Bitartrate 4 mg (/ Dextrose/Water) 250 mls @ 7.5 mls/hr IV TITRATE [facility]; Protocol Dextrose/Water (Dextrose 5% In Water) Confirm Administered Dose 250 mls @ as directed .ROUTE .[facility] ONE Stop: 09/01/19 15:54 Last Admin: 09/01/19 18:13 Dose: Not Given Dextrose/Water (Dextrose 5% In Water) 1,000 mls @ 50 mls/hr IV ASDIRECTED [facility] Last Infusion: 09/02/19 20:45 Dose: 25 mls/hr Sodium Chloride (Normal Saline) 100 mls @ 75 mls/hr IV ASDIRECTED [facility] Linezolid 600 mg/ Premix 300 mls @ 300 mls/hr IV Q12H [facility] Last Admin: 09/01/19 19:54 Dose: Not Given Linezolid 600 mg/ Premix 300 mls @ 300 mls/hr IV Q12H [facility] Last Admin: 09/03/19 12:01 Dose: Not Given Potassium Chloride 10 meq/ (Premix) 100 mls @ 100 mls/hr IV Q1H [facility] Stop: 09/03/19 12:14 Last Admin: 09/03/19 12:50 Dose: 100 mls/hr Dextrose/Water (Dextrose 5% In Water) 1,000 mls @ 50 mls/hr IV ASDIRECTED [facility] Last Admin: 09/03/19 11:07 Dose: 50 mls/hr Dextrose/Sodium Chloride (Dextrose 5%-1/2 Ns) 1,000 mls @ 50 mls/hr IV ASDIRECTED [facility] Last Admin: 09/06/19 06:19 Dose: 50 mls/hr Potassium Chloride 10 meq/ (Premix) 100 mls @ 100 mls/hr IV Q1H [facility] Stop: 09/04/19 11:59 Last Admin: 09/04/19 11:33 Dose: 100 mls/hr Potassium Chloride 10 meq/ (Premix) 100 mls @ 100 mls/hr IV Q1H [facility] Stop: 09/05/19 12:59 Last Admin: 09/05/19 12:24 Dose: 100 mls/hr Dextrose/Sodium Chloride (Dextrose 5%-1/2 Ns) 1,000 mls @ 50 mls/hr IV ASDIRECTED [facility] Last Admin: 09/07/19 01:28 Dose: 50 mls/hr Potassium Chloride/Dextrose/Sod Cl (D5 1/2 Ns W/ 20 Meq/L Kcl) 1,000 mls @ 75 mls/hr IV ASDIRECTED [facility] Stop: 09/08/19 23:04 Last Admin: 09/08/19 11:54 Dose: 75 mls/hr Iopamidol (Isovue-370 (76%)) 100 ml IVPUSH ONETIME ONE Stop: 09/01/19 17:31 Last Admin: 09/01/19 17:31 Dose: 100 ml Levothyroxine Sodium (Synthroid) 75 mcg PO DAILY [facility] Lisinopril (Prinivil) 20 mg PO BEDTIME [facility] Last Admin: 09/09/19 21:50 Dose: 20 mg Lisinopril (Prinivil) 20 mg NGTUBE BEDTIME [facility] Metoclopramide HCl (Reglan) 5 mg IVPUSH Q8H [facility] Last Admin: 09/10/19 09:11 Dose: 5 mg Morphine Sulfate (Morphine) 1 mg IVPUSH ONETIME ONE Stop: 08/29/19 07:47 Last Admin: 08/29/19 08:09 Dose: 1 mg Morphine Sulfate (Morphine) 1 mg IVPUSH Q4H PRN PRN Reason: Pain Last Admin: 09/10/19 09:11 Dose: 1 mg Morphine Sulfate (Morphine) 2 mg IVPUSH Q1H PRN PRN Reason: Pain Last Admin: 09/10/19 12:24 Dose: 2 mg Non-Formulary Medication (Losartan) 50 mg PO BEDTIME [facility] Norepinephrine Bitartrate (Levophed) Confirm Administered Dose 4 mg .ROUTE .STK- MED ONE Stop: 08/24/19 16:39 Last Admin: 08/24/19 16:47 Dose: Not Given Norepinephrine Bitartrate (Levophed) Confirm Administered Dose 4 mg .ROUTE .STK- MED ONE Stop: 09/01/19 15:54 Last Admin: 09/01/19 18:12 Dose: Not Given Ondansetron HCl (Zofran) 4 mg IVPUSH ONETIME ONE Stop: 08/24/19 07:27 Last Admin: 08/24/19 08:13 Dose: 4 mg Pantoprazole Sodium (Protonix Iv) 40 mg IVPUSH DAILY [facility] Last Admin: 09/09/19 09:58 Dose: 40 mg Pantoprazole Sodium (Protonix) 40 mg PO DAILY [facility] Potassium Chloride (Klor-Con M20) 20 meq PO BID [facility] Last Admin: 09/01/19 08:51 Dose: 20 meq Potassium Chloride (Potassium Chloride Solution) 40 meq NGTUBE ONETIME ONE Stop: 09/01/19 12:01 Last Admin: 09/01/19 11:39 Dose: 40 meq Potassium Chloride (Potassium Chloride Solution) 20 meq NGTUBE BID [facility] Last Admin: 09/06/19 09:29 Dose: 20 meq Potassium Chloride (Potassium Chloride Solution) 20 meq NGTUBE DAILY [facility] Last Admin: 09/09/19 09:49 Dose: 20 meq Psyllium Husk (Metamucil Sugar Free) 1 packet PO BID [facility] Last Admin: 09/04/19 08:35 Dose: 1 packet Sodium Chloride (Saline Flush) 10 ml FLUSH ASDIRECTED PRN PRN Reason: Keep Vein Open Last Admin: 09/04/19 21:12 Dose: 10 ml Sodium Chloride (Saline Flush) 10 ml FLUSH ONETIME ONE Stop: 08/30/19 09:01 Last Admin: 08/30/19 09:09 Dose: 10 ml Sodium Chloride (Saline Flush) 10 ml FLUSH ASDIRECTED PRN PRN Reason: Keep Vein Open Succinylcholine Chloride (Quelicin) 200 mg .ROUTE .STK-MED ONE Stop: 08/24/19 15:01 Sucralfate (Carafate) 1 gm NGTUBE BID [facility] Last Admin: 09/09/19 21:44 Dose: 1 gm Vecuronium [place] (Vecuronium) Confirm Administered Dose 10 mg .ROUTE .[facility] ONE Stop: 08/24/19 20:13 - Exam Quality Assessment: Reports: Supplemental Oxygen General: Reports: Obtunded Lungs: Reports: Rales. Denies: Normal Respiratory Effort Cardiovascular: Reports: Regular Rate, Regular Rhythm GI/Abdominal Exam: Soft, Non-Tender, No Distention. No: Abnormal Bowel Sounds ( Decreased) Extremities: Non-Tender, Pedal Edema Discharge Operative/Procedures - Procedures Performed Intubation Indication: Airway Protection Arterial Line Indication: hemodynamic monitoring
== END 2019-09-10 12:53 | DRG 853 ==
LOC: JD.ED 07:19 → EDBD 07:19 → JD.ICU 14:07 → JD.MS 09-05 17:40
PROVIDERS: ADMIT Internal Medicine; ATTEND Family Medicine
PROC: 0DTF0ZZ Resection of Right Large Intestine, Open Approach (ICD-10-PCS; principal; 2019-08-24)
PROC: 0DBB0ZZ Excision of Ileum, Open Approach (ICD-10-PCS; 2019-08-24)
PROC: 3E033XZ Introduction of Vasopressor into Peripheral Vein, Percutaneous Approach (ICD-10-PCS; 2019-08-24)
PROC: 0BH17EZ Insertion of Endotracheal Airway into Trachea, Via Natural or Artificial Opening (ICD-10-PCS; 2019-08-24)
PROC: 5A1955Z Respiratory Ventilation, Greater than 96 Consecutive Hours (ICD-10-PCS; 2019-08-24)
PROC: 06H033Z Insertion of Infusion Device into Inferior Vena Cava, Percutaneous Approach (ICD-10-PCS; 2019-08-24)
PROC: 0DH67UZ Insertion of Feeding Device into Stomach, Via Natural or Artificial Opening (ICD-10-PCS; 2019-09-04)
DX: A41.9 Sepsis, unspecified organism (principal); K55.029 Acute infarction of small intestine, extent unspecified; J69.0 Pneumonitis due to inhalation of food and vomit; R65.21 Severe sepsis with septic shock; R09.02 Hypoxemia; H54.7 Unspecified visual loss; H35.30 Unspecified macular degeneration; K55.049 Acute infarction of large intestine, extent unspecified; I10 Essential (primary) hypertension; J96.00 Acute respiratory failure, unspecified whether with hypoxia or hypercapnia; K21.9 Gastro-esophageal reflux disease without esophagitis; N39.0 Urinary tract infection, site not specified; G30.9 Alzheimer's disease, unspecified; F02.80 Dementia in other diseases classified elsewhere, unspecified severity, without behavioral disturbance, psychotic disturbance, mood disturbance, and anxiety; E87.2 Acidosis; E87.3 Alkalosis; N17.9 Acute kidney failure, unspecified; T81.31XA Disruption of external operation (surgical) wound, not elsewhere classified, initial encounter; Z98.62 Peripheral vascular angioplasty status; Z96.659 Presence of unspecified artificial knee joint; E87.0 Hyperosmolality and hypernatremia; I13.0 Hypertensive heart and chronic kidney disease with heart failure and stage 1 through stage 4 chronic kidney disease, or unspecified chronic kidney disease; Z66 Do not resuscitate; Z51.5 Encounter for palliative care; K52.9 Noninfective gastroenteritis and colitis, unspecified; N18.3 Chronic kidney disease, stage 3 (moderate); K21.0 Gastro-esophageal reflux disease with esophagitis; F01.50 Vascular dementia, unspecified severity, without behavioral disturbance, psychotic disturbance, mood disturbance, and anxiety; E87.6 Hypokalemia; E03.9 Hypothyroidism, unspecified; E83.42 Hypomagnesemia; T68.XXXA Hypothermia, initial encounter; D75.82 Heparin induced thrombocytopenia (HIT); R00.1 Bradycardia, unspecified; B96.20 Unspecified Escherichia coli [E. coli] as the cause of diseases classified elsewhere; I08.3 Combined rheumatic disorders of mitral, aortic and tricuspid valves; I50.9 Heart failure, unspecified; I25.10 Atherosclerotic heart disease of native coronary artery without angina pectoris; E78.00 Pure hypercholesterolemia, unspecified; M19.90 Unspecified osteoarthritis, unspecified site; F41.9 Anxiety disorder, unspecified; F32.9 Major depressive disorder, single episode, unspecified; Z98.49 Cataract extraction status, unspecified eye; Z79.890 Hormone replacement therapy; Z79.899 Other long term (current) drug therapy; Z90.49 Acquired absence of other specified parts of digestive tract; Z90.710 Acquired absence of both cervix and uterus
CPT/HCPCS: 36415; 36600; 74176; 80053; 81001; 82803; 83605; 83690; 84145; 85025; 86850; 86900; 86901; 86922; 87040 ×2; 87086; 87088; 87186; 88307; 96361; 96365; 96375; 99285; J0692; J1170; J2405; J7030; J7120; 00840; 51702; 70450; 70450-26; 71045; 71045-26; 71260; 71260-26; 71275; 71275-26; 72191; 72191-26; 74175; 74175-26; 74177; 74177-26; 80048; 80076; 82248; 82570; 82962; 82977; 83735; 83880; 84100; 84300; 84484; 85007; 85014; 85018; 85027; 85610; 85730; 87070; 87106; 87493; 87641; 92526-GN; 92610-GN; 93005; 93308; 94002; 94003; 94640; 94660; 94761; 97110-GO; 97110-GP; 97140-GO; 97140-GP; 97161-GP; 97167-GO; 97530-GO; 97530-GP; 99284; A9270-GY; C9113; G0480; J0330; J0360; J0461; J0883; J1265; J1642; J1644; J1650; J1720; J1940; J1956; J2020; J2250; J2270; J2543; J2765; J3010; J3370; J3475; J3480; J3490; J7042; J7050; J7060; J7620-GY; P9047; Q9967